=== PATIENT | male | born 1955 | race Caucasian/White ===

== ENCOUNTER 2017-11-02 14:29 | Outpatient (CLI) | payer MEDICAID, SELFPAY ==
[2017-11-02 15:02] LABS: INR 1.8 (1.0-3.5); Prothrombin Time 16.8 sec (9.3-10.8)
== END 2017-11-02 14:49 ==
PROVIDERS: PCP Physician Assistant Medical; Visit Provider Physician Assistant Medical
DX: I34.0 Nonrheumatic mitral (valve) insufficiency (principal); Z98.61 Coronary angioplasty status; Z79.01 Long term (current) use of anticoagulants
CPT/HCPCS: 36415; 85610

== ENCOUNTER 2017-11-11 14:11 | Outpatient (CLI) | payer MEDICAID, SELFPAY ==
[2017-11-11 14:51] LABS: INR 2.2 (1.0-3.5); Prothrombin Time 21.1 sec (9.3-10.8)
== END 2017-11-11 14:31 ==
PROVIDERS: PCP Physician Assistant Medical; Visit Provider Physician Assistant Medical
DX: I48.91 Unspecified atrial fibrillation (principal); Z79.01 Long term (current) use of anticoagulants; Z95.2 Presence of prosthetic heart valve
CPT/HCPCS: 36415; 85610

== ENCOUNTER 2017-11-15 09:46 | Outpatient (CLI) | payer MEDICAID, SELFPAY ==
[2017-11-15 10:18] LABS: INR 2.2 (1.0-3.5); Prothrombin Time 21.2 sec (9.3-10.8)
== END 2017-11-15 10:06 ==
PROVIDERS: PCP Physician Assistant Medical; Visit Provider Physician Assistant Medical
DX: I48.91 Unspecified atrial fibrillation (principal); Z79.01 Long term (current) use of anticoagulants; Z95.2 Presence of prosthetic heart valve
CPT/HCPCS: 36415; 85610

== ENCOUNTER 2017-11-18 09:55 | Outpatient (CLI) | payer MEDICAID, SELFPAY ==
[2017-11-18 10:42] LABS: INR 2.4 (1.0-3.5); Prothrombin Time 22.8 sec (9.3-10.8)
== END 2017-11-18 10:15 ==
PROVIDERS: PCP Physician Assistant Medical; Visit Provider Physician Assistant Medical
DX: I48.91 Unspecified atrial fibrillation (principal); Z79.01 Long term (current) use of anticoagulants; Z95.2 Presence of prosthetic heart valve
CPT/HCPCS: 36415; 85610

== ENCOUNTER 2017-11-18 13:22 | Outpatient (RCR) | payer MEDICAID, SELFPAY | END 2017-11-20 23:59 | disposition home or self-care (01) | LOC: CR 13:22 | PROVIDERS: PCP Physician Assistant Medical; Visit Provider Family Medicine | DX: Z95.1 Presence of aortocoronary bypass graft (principal); Z95.2 Presence of prosthetic heart valve; Z51.89 Encounter for other specified aftercare | CPT/HCPCS: S9472 ==

== ENCOUNTER 2017-11-25 09:48 | Outpatient (CLI) | payer MEDICAID, SELFPAY ==
[2017-11-25 10:43] LABS: INR 2.9 (1.0-3.5); Prothrombin Time 27.6 sec (9.3-10.8)
== END 2017-11-25 10:08 ==
PROVIDERS: PCP Physician Assistant Medical; Visit Provider Physician Assistant Medical
DX: I48.91 Unspecified atrial fibrillation (principal); Z79.01 Long term (current) use of anticoagulants
CPT/HCPCS: 36415; 85610

== ENCOUNTER 2017-11-30 10:52 | Outpatient (CLI) | payer MEDICAID, SELFPAY ==
[2017-11-30 11:42] LABS: INR 2.5 (1.0-3.5); Prothrombin Time 23.4 sec (9.3-10.8)
== END 2017-11-30 11:12 ==
LOC: LBO 12-06 14:17 → NCHCO 12-06 15:43
PROVIDERS: PCP Physician Assistant Medical; Visit Provider Physician Assistant Medical
DX: Z95.2 Presence of prosthetic heart valve (principal); Z79.01 Long term (current) use of anticoagulants
CPT/HCPCS: 36415; 85610

== ENCOUNTER 2017-12-02 12:03 | Outpatient (RCR) | payer MEDICAID, SELFPAY | END 2017-12-21 23:59 | disposition home or self-care (01) | LOC: CR 12:03 | PROVIDERS: PCP Physician Assistant Medical; Visit Provider Family Medicine | DX: Z95.1 Presence of aortocoronary bypass graft (principal); Z95.2 Presence of prosthetic heart valve; Z51.89 Encounter for other specified aftercare | CPT/HCPCS: S9472 ==

== ENCOUNTER 2017-12-10 09:24 | Outpatient (CLI) | payer MEDICAID, SELFPAY ==
[2017-12-10 10:47] LABS: INR 2.5 (1.0-3.5); Prothrombin Time 23.2 sec (9.3-10.8)
== END 2017-12-10 09:44 ==
PROVIDERS: PCP Physician Assistant Medical; Visit Provider Physician Assistant Medical
DX: Z95.2 Presence of prosthetic heart valve (principal); Z79.01 Long term (current) use of anticoagulants; I34.0 Nonrheumatic mitral (valve) insufficiency
CPT/HCPCS: 36415; 85610

== ENCOUNTER 2017-12-18 10:44 | Outpatient (CLI) | payer MEDICAID, SELFPAY ==
[2017-12-18 11:12] LABS: INR 2.5 (1.0-3.5); Prothrombin Time 23.6 sec (9.3-10.8)
== END 2017-12-18 11:04 ==
PROVIDERS: PCP Physician Assistant Medical; Visit Provider Physician Assistant Medical
DX: I34.0 Nonrheumatic mitral (valve) insufficiency (principal); Z95.2 Presence of prosthetic heart valve; Z79.01 Long term (current) use of anticoagulants
CPT/HCPCS: 36415; 85610

== ENCOUNTER 2017-12-31 08:48 | Outpatient (CLI) | payer MEDICAID, SELFPAY ==
[2017-12-31 09:54] LABS: INR 2.2 (1.0-3.5); Prothrombin Time 20.9 sec (9.3-10.8)
== END 2017-12-31 09:08 ==
PROVIDERS: PCP Physician Assistant Medical; Visit Provider Physician Assistant Medical
DX: I34.0 Nonrheumatic mitral (valve) insufficiency (principal); Z95.2 Presence of prosthetic heart valve; Z79.01 Long term (current) use of anticoagulants
CPT/HCPCS: 36415; 85610

== ENCOUNTER 2018-01-16 07:25 | Outpatient (CLI) | payer MEDICAID, SELFPAY ==
[2018-01-16 07:53] LABS: INR 1.9 (1.0-3.5); Prothrombin Time 17.8 sec (9.3-10.8)
== END 2018-01-16 07:45 ==
PROVIDERS: PCP Physician Assistant Medical; Visit Provider Physician Assistant Medical
DX: I34.0 Nonrheumatic mitral (valve) insufficiency (principal); Z95.2 Presence of prosthetic heart valve; Z79.01 Long term (current) use of anticoagulants
CPT/HCPCS: 36415; 85610

== ENCOUNTER 2018-02-02 14:16 | Outpatient (CLI) | payer BC, SELFPAY ==
[2018-02-02 15:58] LABS: Prothrombin Time 17.9 sec (9.3-10.8)
[2018-02-02 16:04] LABS: INR 1.9 (1.0-3.5)
== END 2018-02-02 14:36 ==
PROVIDERS: PCP Physician Assistant Medical; Visit Provider Physician Assistant Medical
DX: I34.0 Nonrheumatic mitral (valve) insufficiency (principal); Z95.2 Presence of prosthetic heart valve; Z79.01 Long term (current) use of anticoagulants
CPT/HCPCS: 36415; 85610

== ENCOUNTER 2018-02-15 07:28 | Outpatient (CLI) | payer BC, SELFPAY ==
[2018-02-15 08:01] LABS: INR 1.9 (1.0-3.5); Prothrombin Time 19.5 sec (9.3-11.0)
== END 2018-02-15 07:48 ==
LOC: LBO 07:29 → NCHCO 07:40
PROVIDERS: PCP Physician Assistant Medical; Visit Provider Physician Assistant Medical
DX: I34.0 Nonrheumatic mitral (valve) insufficiency (principal); Z95.2 Presence of prosthetic heart valve; Z79.01 Long term (current) use of anticoagulants
CPT/HCPCS: 36415; 85610

== ENCOUNTER 2018-02-20 19:39 | Emergency (ER) | payer BC, SELFPAY | END 2018-02-20 19:45 | LOC: ER 19:40 | PROVIDERS: Emergency Provider Specialist/Technologist Athletic Trainer; PCP Physician Assistant Medical | DX: R69 Illness, unspecified (principal) | CPT/HCPCS: 80053; 85027; 83735; 83880; 84439; 84443 ==

== ENCOUNTER 2018-02-22 10:17 | Outpatient (CLI) | payer MEDICAID, SELFPAY ==
[2018-02-22 12:05] LABS: INR 1.9 (1.0-3.5); Prothrombin Time 19.2 sec (9.3-11.0)
== END 2018-02-22 10:37 ==
LOC: LBO 11:50 → NCHCO 12:10
PROVIDERS: PCP Physician Assistant Medical; Visit Provider Physician Assistant Medical
DX: Z95.2 Presence of prosthetic heart valve (principal); Z79.01 Long term (current) use of anticoagulants
CPT/HCPCS: 36415; 85610

== ENCOUNTER 2018-02-28 11:09 | Outpatient (CLI) | payer MEDICAID, SELFPAY ==
[2018-02-28 12:18] LABS: INR 3.1 (0.9-1.1); Prothrombin Time 31.2 sec (9.3-11.0)
== END 2018-02-28 11:29 ==
PROVIDERS: PCP Physician Assistant Medical; Visit Provider Physician Assistant Medical
DX: I34.0 Nonrheumatic mitral (valve) insufficiency (principal); Z98.890 Other specified postprocedural states; Z79.01 Long term (current) use of anticoagulants
CPT/HCPCS: 36415; 85610

== ENCOUNTER 2018-03-08 09:16 | Outpatient (CLI) | payer MEDICAID, SELFPAY ==
[2018-03-08 09:50] LABS: INR 3.4 (0.9-1.1); Prothrombin Time 34.3 sec (9.3-11.0)
== END 2018-03-08 09:36 ==
PROVIDERS: PCP Physician Assistant Medical; Visit Provider Physician Assistant Medical
DX: I34.0 Nonrheumatic mitral (valve) insufficiency (principal); Z79.01 Long term (current) use of anticoagulants; Z98.890 Other specified postprocedural states
CPT/HCPCS: 36415; 85610

== ENCOUNTER 2018-08-01 17:06 | Observation (INO) | payer MEDICAID, SELFPAY ==
[2018-08-01] VITALS (25 sets, daily range): BP systolic 86–124; BP diastolic 47–72; PULSE 50–65; RESP 13–21; TEMP 37; O2SAT 91–97
--- NOTE | 2018-08-01 17:24 | DI.RAD_ITS ---
SYMPTOM/DIAGNOSIS: SOB PA AND LATERAL CHEST: Comparison is made with 07/21/17. Heart size appears stable. There is a mitral valve replacement. The lungs are clear. No effusions or pneumothoraces are identified. The bones are intact. IMPRESSION: No acute pulmonary process.
--- NOTE | 2018-08-01 17:25 | W.ED.GENAD ---
Discharge Plan Disposition Patient Disposition: [facility] INPATIENT Condition: Stable Discharge Details Chief Complaint: SOB Clinical Impression: AF (paroxysmal atrial fibrillation), Shortness of breath Admit Date/Time: 08/01/18 21:19 Admit Provider: Nilson Cuevas Attending Provider: Nilson Cuevas Primary Care Provider: Es [facility] ED Provider: Ryan Cardenas Discharge Data Discharge Date/Time-TO BE ENTERED AT DEPARTURE: 08/01/18 23:07 Medical Decision Making Patient presenting to the emergency department for chief complaint of shortness of breath. Patient states that this started yesterday evening when he also noted palpitations and rapid heart rate. He does state that this is common when he gets his paroxysmal atrial fibrillation episodes and on his heart rate monitor he noticed heart rate in the 150s. Patient went to bed as he states that this typically resolves the symptoms but when he awoke this morning he continued to have symptoms and rapid heart rate. Then around 11 AM he began having a headache and right-sided neck pain with continued shortness of breath. Then around 2 or 3:00 this afternoon the heart rate went back to normal but he continued to be short of breath and have headache and neck pain. When questioning patient he also does state some right-sided sensation of numbness to his arm and left leg. Physical exam shows regular rate and rhythm, no hypoxia or tachycardia, patient is afebrile nondiaphoretic and nontoxic in appearance. Patient is able to speak in full sentences and shows no emergent signs of respiratory distress. Patient has clear lung sounds, regular S1-S2 without murmurs clicks or rubs, no carotid bruits or palpable abnormality noted, neurological exam is unremarkable except for perceived numbness but no focal deficits are noted and patient sensation is still intact. Plan to check labs, EKG, chest x-ray and head CT. Given patient's history of paroxysmal A. fib with complaint of shortness of breath and headache plan to also check d-dimer for consideration of PE. Given patient's headache that he states is not normal for him that CT imaging of the head is warranted for evaluation of stroke but patient is outside the window for any thrombolytics at this point. Review of labs show a nondiagnostic CBC, unremarkable coagulation studies with d-dimer of 476, CMP with mildly elevated BUN and low calcium otherwise nondiagnostic, negative initial troponin and BNP of 1537. Review of chest x-ray and radiologist interpretation shows no acute findings, notation of cardiac valve replacement otherwise no pleural effusion, no pneumothorax, no consolidation. Head CT imaging shows no acute findings. given neck pain and headache plan to do CTA brain and neck. Otherwise patient remained stable with stable vital signs, no hypoxia, no further episodes of paroxysmal A. fib noted on monitor. Of note when patient was at CT scan did state that when this episode started patient had run out to work in garden and when he came back he was extremely diaphoretic, had shortness of breath, and tachycardia at that point. She does state that he has been having a hard time ambulating without getting extremely short of breath. Patient was ambulated through the department and showed no hypoxia with ambulation and no tachycardia but patient stated feeling extreme chest heaviness and shortness of breath with this. Review of 3-hour troponin was negative. CTA brain and neck showed no acute findings. Given patient has significant cardiac history I do feel that patient should be admitted for serial troponins, continued monitoring, and consideration of stress test and echo. I do feel that elevation of BNP may be secondary to patient's atrial fibrillation in the 150s for approximately 12 hours or greater and that that is more likely what is causing patient's symptoms and possible slight demand ischemia. Patient given IV Lasix. Called and spoke with hospitalist Dr. Cuevas who agreed to admit patient and patient was in agreement with this plan to be admitted for further testing and observation. ECG Data Attestation: I personally reviewed and interpreted this ECG (s) as follows: Prior ECG tracings: available for review Interpretation: Sinus bradycardia with rate of 58, no STEMI, and nonspecific T wave changes that do not appear drastically different from previous EKG dated 07/23/2017 [facility] General Mode of arrival: ambulatory. Date/Time Provider Initiated Documentation: 08/01/18 17:08. Limitations to Documentation: no limitations. Information obtained by: patient. History of Present Illness 62 year old M presents to the emergency department with the chief complaint of Shortness of breath, headache, rapid heart rate, described as moderate and similar to prior episodes, with intensity rated at 5. Quality is described as aching, and is localized to the head. Patient neck. Patient started experiencing this day(s) (1) and it has been constant. No exacerbating factors reported . Patient did receive the following treatments prior to arrival, other (Acetaminophen, 4 hours ago) Related Data Home Medications Medication Instructions Recorded Confirmed aspirin [Aspir-81] 81 mg PO DAILY tab-cap 05/24/12 08/01/18 atorvastatin [Lipitor] 40 mg PO HS 05/24/12 08/01/18 albuterol sulfate [ProAir HFA] 2 puff INHALATION Q4H PRN PRN #1 10/11/16 08/01/18 inh tamsulosin 0.4 mg PO DAILY@0830 07/21/17 08/01/18 Eliquis 5 mg PO BID #60 tab 07/23/17 08/01/18 amiodarone 200 mg DAILY 08/01/18 08/01/18 furosemide 20 mg DAILY 08/01/18 08/01/18 metoprolol tartrate 50 mg BID 08/01/18 08/01/18 Previous Rx's Medication Instructions Recorded albuterol sulfate [ProAir HFA] 2 puff INHALATION Q4H PRN PRN #1 10/11/16 inh Eliquis 5 mg PO BID #60 tab 07/23/17 Allergies Allergy/AdvReac Type Severity Reaction Status Date / Time No Known Allergies Allergy Unverified 08/01/18 17:14 General Stated Complaint: RespSymp BILLIE: 3 Review of Systems Constitutional Denies chills, Denies fever(s), Reports headache(s), Denies malaise and Denies weakness ENT Reports headache(s) Cardiovascular Reports as per HPI, Denies chest pain, Denies chest pain with activity, Denies syncope, Reports rapid heart rate, Denies irregular heart rhythm, Denies leg edema, Reports palpitations, Reports dyspnea and Reports dyspnea on exertion Respiratory Denies cough, Denies hemoptysis, Reports dyspnea and Reports dyspnea on exertion Gastrointestinal Denies abdominal pain, Denies nausea and Denies vomiting Musculoskeletal Denies numbness and Reports tingling (Left arm and leg) Neurologic Denies abnormal speech, Denies syncope, Reports headache(s), Denies lack of coordination, Denies numbness, Denies other visual disturbances, Reports tingling (Left arm and leg), Denies paresthesias and Denies weakness Psychiatric Denies anxiety Endocrine Reports palpitations [facility] Medical History ADENOMA COLON POLYP Acute myocardial infarction of inferior wall CAD Diverticulitis (~1989) Essential hypertension Hyperlipidemia Obesity SKIN NEOPLASM Surgical History Angioplasty Appendectomy Arthroplasty of knee COLECTOMY Colonoscopy - MAC (~2007) Colonoscopy - MAC (05/28/16) Colostomy (~1989) Family History Mother Personal history of malignant neoplasm Father Heart disease Sister Personal history of malignant neoplasm Brother Heart disease Other Hearing loss Social History Smoking/Tobacco Use Status: Former Tobacco Use Drug use: Never Substance use type: does not use Do you feel safe at home: Yes Do you feel safe in your relationship?: Yes Exam Const General: cooperative, no acute distress, not diaphoretic and not ill appearing Nutritional Appearance: obese Orientation: alert, awake and oriented x3 Neck Neck: normal visual inspection, full ROM, trachea midline, supple and no anterior neck swelling Carotids: normal carotid upstroke and no bruits Chest Chest: normal inspection of the chest Resp Effort & Inspection: normal respiratory effort and able to speak in complete sentences Auscultation: clear to auscultation bilaterally Cardio Jugular venous pressure: no JVD Palpation: normal PMI Rate: regular rate Rhythm: regular rhythm Heart Sounds: S1 normal, S2 normal, no click, no gallops, no murmurs and no rubs Bruits: no abdominal aortic bruits and no carotid bruits Pulses: radial pulses present bilaterally 2+ GI Inspection: normal to inspection Palpation: soft, no aortic enlargement, no pulsatile masses and nontender Auscultation: normal bowel sounds Skin General skin exam: no rashes or lesions noted Neuro General: alert, awake, oriented x3, tone normal, moves all extremities, normal light touch, pain and propioception, no focal motor deficits and CN's II-XI intact bilaterally Cognition: normal cognition Speech: speech normal Gait: normal gait Motor: muscle tone normal throughout, strength 5/5 throughout, no pronator drift and no movement abnormalities noted Sensory Exam: no sensory deficits noted Coordination: Romberg test normal and Does not sway with eyes open Extrem General: no pedal edema and no calf tenderness Course Vital Signs Temperature 37.0 C 08/01/18 17:09 Pulse 65 08/01/18 17:09 Respiratory Rate 17 08/01/18 17:09 Pulse Oximetry 95 08/01/18 17:09 Temperature 37.0 C 08/01/18 17:09 Pulse 65 08/01/18 17:09 Respiratory Rate 17 08/01/18 17:09 Respiratory Effort 08/01/18 17:22 Pulse Oximetry 95 08/01/18 17:09 Oxygen Delivery Method Room Air 08/01/18 17:09 Oxygen Flow Rate 0 08/01/18 17:09 Pain Level 5 08/01/18 17:22
--- NOTE | 2018-08-01 17:28 | ED.GENADUL_ITS ---
Discharge Plan Disposition Patient Disposition: [facility] INPATIENT Condition: Stable Discharge Details Chief Complaint: SOB Clinical Impression: AF (paroxysmal atrial fibrillation), Shortness of breath Admit Date/Time: 08/01/18 21:19 Admit Provider: Nilson Cuevas Attending Provider: Nilson Cuevas Primary Care Provider: Es [facility] ED Provider: Ryan Cardenas Discharge Data Discharge Date/Time-TO BE ENTERED AT DEPARTURE: 08/01/18 23:07 Medical Decision Making Patient presenting to the emergency department for chief complaint of shortness of breath. Patient states that this started yesterday evening when he also note d palpitations and rapid heart rate. He does state that this is common when he gets his paroxysmal atrial fibrillation episodes and on his heart rate monitor he noticed heart rate in the 150s. Patient went to bed as he states that this typically resolves the symptoms but when he awoke this morning he continued to have symptoms and rapid heart rate. Then around 11 AM he began having a headache and right-sided neck pain with continued shortness of breath. Then around 2 or 3:00 this afternoon the heart rate went back to normal but he continued to be short of breath and have headache and neck pain. When questioning patient he also does state some right-sided sensation of numbness to his arm and left leg. Physical exam shows regular rate and rhythm, no hypoxia or tachycardia, patient is afebrile nondiaphoretic and nontoxic in appearance. Patient is able to speak in full sentences and shows no emergent signs of respiratory distress. Patient has clear lung sounds, regular S1-S2 without murmurs clicks or rubs, no carotid bruits or palpable abnormality noted, neurological exam is unremarkable except for perceived numbness but no focal deficits are noted and patient sensation is still intact. Plan to check labs, EKG, chest x-ray and head CT. Given patient's history of paroxysmal A. fib with complaint of shortness of breath and headache plan to also check d-dimer for consideration of PE. Given patient's headache that he states is not normal for him that CT imaging of the head is warranted for evaluation of stroke but patient is outside the window for any thrombolytics at this point. Review of labs show a nondiagnostic CBC, unremarkable coagulation studies with d-dimer of 476, CMP with mildly elevated BUN and low calcium otherwise nondiagnostic, negative initial troponin and BNP of 1537. Review of chest x-ray and radiologist interpretation shows no acute findings, notation of cardiac valve replacement otherwise no pleural effusion, no pneumothorax, no consolidation. Head CT imaging shows no acute findings. given neck pain and headache plan to do CTA brain and neck. Otherwise patient remained stable with stable vital signs, no hypoxia, no further episodes of paroxysmal A. fib noted on monitor. Of note when patient was at CT scan did state that when this episode started patient had run out to work in garden and when he came back he was extremely diaphoretic, had shortness of breath, and tachycardia at that point. She does state that he has been having a hard time ambulating without getting extremely short of breath. Patient was ambulated through the department and showed no hypoxia with ambulation and no tachycardia but patient stated feeling extreme chest heaviness and shortness of breath with this. Review of 3-hour troponin was negative. CTA brain and neck showed no acute findings. Given patient has significant cardiac history I do feel that patient should be admitted for serial troponins, continued monitoring, and consideration of stress test and echo. I do feel that elevation of BNP may be secondary to patient's atrial fibrillation in the 150s for approximately 12 hours or greater and that that is more likely what is causing patient's symptoms and possible slight demand ischemia. Patient given IV Lasix. Called and spoke with hospitalist Dr. Cuevas who agreed to admit patient and patient was in agreement with this plan to be admitted for further testing and observation. ECG Data Attestation: I personally reviewed and interpreted this ECG (s) as follows: Prior ECG tracings: available for review Interpretation: Sinus bradycardia with rate of 58, no STEMI, and nonspecific T wave changes that do not appear drastically different from previous EKG dated 07/23/2017 [facility] General Mode of arrival: ambulatory . Date/Time Provider Initiated Documentation: 08/01/18 17:08 . Limitations to Documentation: no limitations . Information obtained by: patient . History of Present Illness 62 year old M presents to the emergency department with the chief complaint of Shortness of breath, headache, rapid heart rate, described as moderate and similar to prior episodes, with intensity rated at 5. Quality is described as aching, and is localized to the head. Patient neck. Patient started experiencing this day(s) (1) and it has been constant. No exacerbating factors reported . Patient did receive the following treatments prior to arrival, other (Acetaminophen, 4 hours ago) Related Data Home Medications Medication Instructions Recorded Confirmed aspirin [Aspir-81] 81 mg PO DAILY tab-cap 05/24/12 08/01/18 atorvastatin [Lipitor] 40 mg PO HS 05/24/12 08/01/18 albuterol sulfate [ProAir HFA] 2 puff INHALATION Q4H PRN PRN #1 10/11/16 08/01/18 inh tamsulosin 0.4 mg PO DAILY@0830 07/21/17 08/01/18 Eliquis 5 mg PO BID #60 tab 07/23/17 08/01/18 amiodarone 200 mg DAILY 08/01/18 08/01/18 furosemide 20 mg DAILY 08/01/18 08/01/18 metoprolol tartrate 50 mg BID 08/01/18 08/01/18 Previous Rx's Medication Instructions Recorded albuterol sulfate [ProAir HFA] 2 puff INHALATION Q4H PRN PRN #1 10/11/16 inh Eliquis 5 mg PO BID #60 tab 07/23/17 Allergies Allergy/AdvReac Type Severity Reaction Status Date / Time No Known Allergies Allergy Unverified 08/01/18 17:14 General Stated Complaint: RespSymp BILLIE: 3 Review of Systems Constitutional Denies chills, Denies fever(s), Reports headache(s), Denies malaise and Denies weakness ENT Reports headache(s) Cardiovascular Reports as per HPI, Denies chest pain, Denies chest pain with activity, Denies syncope, Reports rapid heart rate, Denies irregular heart rhythm, Denies leg edema, Reports palpitations, Reports dyspnea and Reports dyspnea on exertion Respiratory Denies cough, Denies hemoptysis, Reports dyspnea and Reports dyspnea on exertion Gastrointestinal Denies abdominal pain, Denies nausea and Denies vomiting Musculoskeletal Denies numbness and Reports tingling (Left arm and leg) Neurologic Denies abnormal speech, Denies syncope, Reports headache(s), Denies lack of coordination, Denies numbness, Denies other visual disturbances, Reports tingling (Left arm and leg), Denies paresthesias and Denies weakness Psychiatric Denies anxiety Endocrine Reports palpitations [facility] Medical History ADENOMA COLON POLYP Acute myocardial infarction of inferior wall CAD Diverticulitis (~1989) Essential hypertension Hyperlipidemia Obesity SKIN NEOPLASM Surgical History Angioplasty Appendectomy Arthroplasty of knee COLECTOMY Colonoscopy - MAC (~2007) Colonoscopy - MAC (05/28/16) Colostomy (~1989) Family History Mother Personal history of malignant neoplasm Father Heart disease Sister Personal history of malignant neoplasm Brother Heart disease Other Hearing loss Social History Smoking/Tobacco Use Status: Former Tobacco Use Drug use: Never Substance use type: does not use Do you feel safe at home: Yes Do you feel safe in your relationship?: Yes Exam Const General: cooperative, no acute distress, not diaphoretic and not ill appearing Nutritional Appearance: obese Orientation: alert, awake and oriented x3 Neck Neck: normal visual inspection, full ROM, trachea midline, supple and no anterior neck swelling Carotids: normal carotid upstroke and no bruits Chest Chest: normal inspection of the chest Resp Effort & Inspection: normal respiratory effort and able to speak in complete sentences Auscultation: clear to auscultation bilaterally Cardio Jugular venous pressure: no JVD Palpation: normal PMI Rate: regular rate Rhythm: regular rhythm Heart Sounds: S1 normal, S2 normal, no click, no gallops, no murmurs and no rubs Bruits: no abdominal aortic bruits and no carotid bruits Pulses: radial pulses present bilaterally 2+ GI Inspection: normal to inspection Palpation: soft, no aortic enlargement, no pulsatile masses and nontender Auscultation: normal bowel sounds Skin General skin exam: no rashes or lesions noted Neuro General: alert, awake, oriented x3, tone normal, moves all extremities, normal light touch, pain and propioception, no focal motor deficits and CN's II-XI intact bilaterally Cognition: normal cognition Speech: speech normal Gait: normal gait Motor: muscle tone normal throughout, strength 5/5 throughout, no pronator drift and no movement abnormalities noted Sensory Exam: no sensory deficits noted Coordination: Romberg test normal and Does not sway with eyes open Extrem General: no pedal edema and no calf tenderness Course Vital Signs Temperature 37.0 C 08/01/18 17:09 Pulse 65 08/01/18 17:09 Respiratory Rate 17 08/01/18 17:09 Pulse Oximetry 95 08/01/18 17:09 Temperature 37.0 C 08/01/18 17:09 Pulse 65 08/01/18 17:09 Respiratory Rate 17 08/01/18 17:09 Respiratory Effort 08/01/18 17:22 Pulse Oximetry 95 08/01/18 17:09 Oxygen Delivery Method Room Air 08/01/18 17:09 Oxygen Flow Rate 0 08/01/18 17:09 Pain Level 5 08/01/18 17:22
--- NOTE | 2018-08-01 17:30 | DI.CT_ITS ---
SYMPTOM/DIAGNOSIS: HEADACHE NONCONTRAST HEAD CT: No priors. A noncontrast cranial CT was performed. The ventricular system is normal in appearance. There is no evidence of an intracranial mass lesion. There is no evidence of a subdural or epidural hematoma. No focal areas of decreased attenuation are seen. CONCLUSION: Normal noncontrast Cranial CT.
--- NOTE | 2018-08-01 17:39 | NUR.NOTE ---
iv placed labs drawn ekg performed Nursing Note:
[2018-08-01 17:47] LABS: Abs Immature Grans 0.05 k/cumm (0.0-0.09); Absolute Basophil Count 0.03 k/cumm (0.0-0.2); Absolute Eosinophil Count 0.14 k/cumm (0.0-0.7); Absolute Lymphocyte Count 1.25 k/cumm (1.2-3.4); Absolute Monocyte Count 1.12 k/cumm (0.11-0.7); Basophils % 0.4; HCT 44.9 % (40.0-50.0); HGB 14.8 g/dL (13.5-17.5); Immature Grans % 0.7; Lymphocytes % 17.6; Mean Corpuscular Hemoglobin 29.9 pg (27.0-33.0); Mean Corpuscular Volume 90.7 fL (80-95); Mean Platelet Volume 11.4 fL (8.0-11.0); Monocytes % 15.8; Neutrophils % 63.5; Platelet Count 156 x1000/uL (130-400); RBC 4.95 m/cumm (4.50-6.00); RBC Distribution Width 14.6 % (11.8-14.1); White Blood Cell Count 7.09 k/cumm (4.4-10.8)
[2018-08-01 18:10] LABS: ALT 48 U/L (12-78); AST 19 U/L (15-37); Albumin 3.1 g/dL (3.4-5.0); Alkaline Phosphatase 92 U/L (46-116); Anion Gap 7.3 mmol/L (3-11); BUN 22 mg/dL (7-18); Bilirubin, Total 0.6 mg/dL (0.2-1.0); CO2 27.7 mmol/L (21.0-32.0); CREATININE 1.06 mg/dL (0.70-1.30); Calcium 8.3 mg/dL (8.5-10.1); Chloride 105 mmol/L (98-107); Glucose 109 mg/dL (70-100); Magnesium 2.1 mg/dL (1.8-2.4); NT-proBNP 1537 pg/mL; Sodium 140 mmol/L (136-145); Total Protein 6.5 g/dL (6.4-8.2); Troponin I 0.02 ng/mL (0.00-0.06)
[2018-08-01 18:14] LABS: PTT Activated 25.4 sec (21.0-31.4); Prothrombin Time 9.8 sec (9.3-11.0)
[2018-08-01 18:26] LABS: D-Dimer 476 ng/mlFEU (<500)
--- NOTE | 2018-08-01 18:56 | DI.VRAD_ITS ---
EXAM: XR Chest, 2 Views EXAM DATE/TIME: 08/01/2018 5:26 PM CLINICAL HISTORY: 62 years old, male; Signs and symptoms; Other: Headache TECHNIQUE: Imaging protocol: XR of the chest, 2 views. COMPARISON: CR CHEST 2 VIEWS PA,LAT 07/21/2017 7:45 AM FINDINGS: Lungs: Unremarkable. No consolidation. Pleural space: Unremarkable. No pleural effusion. No pneumothorax. Heart/Mediastinum: Cardiac valve placement. Bones/joints: Sternotomy. Degenerative changes in the spine. IMPRESSION: No acute finding. Dictated and Authenticated by: Alok Vaughan MD. Ordering:TONI Davis MD
--- NOTE | 2018-08-01 19:16 | DI.VRAD_ITS ---
EXAM: CT Head Without Contrast EXAM DATE/TIME: 08/01/2018 5:31 PM CLINICAL HISTORY: 62 years old, male; Pain; Headache TECHNIQUE: Imaging protocol: Axial computed tomography images of the head without contrast. Coronal and sagittal reformatted images were created and reviewed. COMPARISON: No relevant prior studies available. FINDINGS: Brain: Normal. No hemorrhage. Unremarkable white matter. No mass effect. Ventricles: Normal. No ventriculomegaly. Bones/joints: Unremarkable. No acute fracture. Sinuses: Visualized sinuses are unremarkable. No fluid levels. Mastoid air cells: Visualized mastoid air cells are well aerated. No mastoid effusion. Soft tissues: Unremarkable. IMPRESSION: No acute intracranial findings. Dictated and Authenticated by: Shan Preez MD. Ordering:TONI Davis MD
[2018-08-01] MEDS: Omnipaque 350 MG/ML 100 ML BTL IJ (19:30)
--- NOTE | 2018-08-01 19:50 | DI.CT_ITS ---
SYMPTOMS/DIAGNOSIS: HEADACHE, RT SIDED NECK PAIN CT ANGIOGRAPHY OF THE HEAD AND NECK: CT angiography was performed with multi slice acquisition and multi planar and 3D reconstruction. CT ANGIOGRAPHY OF THE NECK: The common carotid arteries are unremarkable without evidence of dissection, occlusion or significant stenosis. The external carotid arteries are unremarkable. No evidence of occlusion or significant stenosis. The internal carotid arteries are unremarkable without evidence of dissection, occlusion or significant stenosis. The vertebral arteries are unremarkable without evidence of dissection, occlusion or significant stenosis. The thyroid appears grossly unremarkable. No acute abnormality is seen in the lung apices. Degenerative changes are seen in the spine. IMPRESSION: CT angiography of the neck is within normal limits. CT ANGIOGRAPHY OF THE HEAD: The internal carotid arteries are unremarkable without evidence of dissection, occlusion, aneurysm or significant stenosis. The anterior cerebral arteries are unremarkable without evidence of occlusion, aneurysm or significant stenosis. The middle cerebral arteries are unremarkable without evidence of occlusion, aneurysm or significant stenosis. The vertebral arteries and basilar artery are unremarkable without evidence of occlusion, dissection, aneurysm or significant stenosis. The posterior cerebral arteries are unremarkable without evidence of aneurysm, occlusion or significant stenosis. IMPRESSION: Unremarkable CT angiography of the head.
--- NOTE | 2018-08-01 20:13 | DI.VRAD_ITS ---
EXAM: CT Angiography Head With Contrast EXAM DATE/TIME: 08/01/2018 7:19 PM CLINICAL HISTORY: 62 years old, male; Headache and right-sided neck pain TECHNIQUE: Imaging protocol: Axial computed tomographic angiography images of the head with intravenous contrast using CT angiography protocol. Coronal and sagittal reformatted images were created and reviewed. 3D rendering: MIP reconstructed images were created and reviewed. Radiation optimization: All CT scans at this facility use at least one of these dose optimization techniques: automated exposure control; mA and/or kV adjustment per patient size (includes targeted exams where dose is matched to clinical indication); or iterative reconstruction. Contrast material: OMNIPAQUE 350; Contrast volume: 85 ml; Contrast route: IV; COMPARISON: CT HEAD WO 08/01/2018 6:36 PM FINDINGS: Right internal carotid artery: Unremarkable. Intracranial segment is patent with no significant stenosis. No aneurysm. Right anterior cerebral artery: Unremarkable. No occlusion or significant stenosis. No aneurysm. Right middle cerebral artery: Unremarkable. No occlusion or significant stenosis. No aneurysm. Right posterior cerebral artery: Unremarkable. No occlusion or significant stenosis. No aneurysm. Right vertebral artery: Unremarkable. No occlusion or significant stenosis. No aneurysm. Left internal carotid artery: Unremarkable. Intracranial segment is patent with no significant stenosis. No aneurysm. Left anterior cerebral artery: Unremarkable. No occlusion or significant stenosis. No aneurysm. Left middle cerebral artery: Unremarkable. No occlusion or significant stenosis. No aneurysm. Left posterior cerebral artery: Unremarkable. No occlusion or significant stenosis. No aneurysm. Left vertebral artery: Unremarkable. No occlusion or significant stenosis. No aneurysm. Basilar artery: Unremarkable. No occlusion or significant stenosis. No aneurysm. IMPRESSION: CTA head within normal limits. EXAM: CT Angiography Neck With Contrast EXAM DATE/TIME: 08/01/2018 7:19 PM CLINICAL HISTORY: 62 years old, male; Headache and right-sided neck pain TECHNIQUE: Imaging protocol: Axial computed tomographic angiography images of the neck with intravenous contrast using CT angiography protocol. Coronal and sagittal reformatted images were created and reviewed. 3D rendering: MIP reconstructed images were created and reviewed. Radiation optimization: All CT scans at this facility use at least one of these dose optimization techniques: automated exposure control; mA and/or kV adjustment per patient size (includes targeted exams where dose is matched to clinical indication); or iterative reconstruction. Contrast material: OMNIPAQUE 350; Contrast volume: 85 ml; Contrast route: IV; COMPARISON: CT HEAD WO 08/01/2018 6:36 PM FINDINGS: VASCULATURE: Right common carotid artery: Unremarkable. No stenosis. No dissection or occlusion. Right internal carotid artery: Unremarkable. No stenosis in the extracranial segment. No dissection or occlusion. Right external carotid artery: Unremarkable. No occlusion or stenosis. Right vertebral artery: Unremarkable. No stenosis. No dissection or occlusion. Left common carotid artery: Unremarkable. No stenosis. No dissection or occlusion. Left internal carotid artery: Unremarkable. No stenosis in the extracranial segment. No dissection or occlusion. Left external carotid artery: Unremarkable. No stenosis. No dissection or occlusion. Left vertebral artery: Unremarkable. No stenosis. No dissection or occlusion. NECK: Bones/joints: Prior median sternotomy. Soft tissues: Normal. No significant soft tissue swelling. IMPRESSION: CTA neck within normal limits. COMMENT: Reference per NASCET criteria for degree of stenosis: Mild: less than 50% stenosis. Moderate: 50-69% stenosis. Severe: 70-94% stenosis. Near occlusion: 95-99% stenosis. Dictated and Authenticated by: Shan Perez MD. Ordering:TONI Davis MD
[2018-08-01] MEDS: Furosemide 20 MG/2 ML VIAL IVP (20:55)
[2018-08-01 21:04] LABS: Troponin I 0.03 ng/mL (0.00-0.06)
--- NOTE | 2018-08-01 21:07 | W.PM.HP.N ---
Date of service: 08/01/18 Time of Service: 21:08 Assessment and Plan (1) Chest pain: Current visit: Yes Status: Acute Though not documented, sounds clearrly like a prolonged episode of tachycardia, probably Afib. Given consequent symptomatology I am concerned he may have had demand ischemia with flare of CHF. No EKG findings to indicate ongoing ischemia. For now will complete r/o protocol and give Lasix. Will continue usual meds as is otherwise. History of Present Illness Chief Complaint: cp, palpitations Narrative: 62 male with h/o PAF, CAD, CHF -- here with some 18 hours of palpitaitions starting yesterday, resolved midday today but since has had a degree of chest heaviness, GREENBERG and orthopneea. In ER initial findings of note for non-ichemic EKG, initial troponin negative,BNP 1500 and negative CXR. Due to ongoing sxx patient for further evaluation and management. Review of Systems Review of Systems All systems reviewed & are unremarkable except as noted in HPI and below PFSH Medical History ADENOMA COLON POLYP Acute myocardial infarction of inferior wall CAD Diverticulitis (~1989) Essential hypertension Hyperlipidemia Obesity SKIN NEOPLASM Surgical History Angioplasty Appendectomy Arthroplasty of knee COLECTOMY Colonoscopy - MAC (~2007) Colonoscopy - MAC (05/28/16) Colostomy (~1989) Family History Mother Personal history of malignant neoplasm Father Heart disease Sister Personal history of malignant neoplasm Brother Heart disease Other Hearing loss Social History Smoking/Tobacco Use Status: Former Tobacco Use Drug use: Never Substance use type: does not use Do you feel safe at home: Yes Do you feel safe in your relationship?: Yes Meds Home Medications Medication Instructions Recorded Confirmed Type aspirin [Aspir-81] 81 mg PO DAILY tab-cap 05/24/12 08/01/18 History atorvastatin [Lipitor] 40 mg PO HS 05/24/12 08/01/18 History albuterol sulfate [ProAir HFA] 2 puff INHALATION Q4H PRN PRN #1 08/21/17 06/11/19 Rx inh tamsulosin 0.4 mg PO DAILY@0830 07/21/17 08/01/18 History Eliquis 5 mg PO BID #60 tab 07/23/17 08/01/18 Rx amiodarone 200 mg DAILY 08/01/18 08/01/18 History furosemide 20 mg DAILY 08/01/18 08/01/18 History metoprolol tartrate 50 mg BID 08/01/18 08/01/18 History Allergies Allergy/AdvReac Type Severity Reaction Status Date / Time No Known Allergies Allergy Unverified 08/01/18 17:14 Exam Narrative Exam Narrative: 117/61, 52, 19, 37.0, 95% sat. HEENT unremarrkable. neck supple, lungs diminished but clear, heart distant but regual, abdomen soft, NT, extr: no edema, pulse 2+/= Results Labs : 08/01/18 17:30 08/01/18 17:30 Laboratory Results - last 24 hr 08/01/18 08/01/18 08/01/18 17:30 17:30 17:30 WBC 7.09 RBC 4.95 Hgb 14.8 Hct 44.9 MCV 90.7 MCH 29.9 MCHC 33.0 RDW 14.6 H Plt Count 156 MPV 11.4 H Immature Gran % 0.7 Neutrophils % 63.5 Lymphocytes % 17.6 Monocytes % 15.8 Eosinophils % 2.0 Basophils % 0.4 Absolute Neutrophils 4.50 Absolute Lymphocytes 1.25 Absolute Monocytes 1.12 H Absolute Eosinophils 0.14 Absolute Basophils 0.03 PT 9.8 INR 1.0 APTT 25.4 D-Dimer 476 Sodium 140 Potassium 4.0 Chloride 105 Carbon Dioxide 27.7 Anion Gap 7.3 BUN 22 H Creatinine 1.06 Estimated GFR/1.73 m2 >= 60.00 Glucose 109 H Calcium 8.3 L Magnesium 2.1 Total Bilirubin 0.6 AST 19 ALT 48 Alkaline Phosphatase 92 Troponin I 0.02 NT-Pro-B Natriuret Pep 1537 H Total Protein 6.5 Albumin 3.1 L 08/01/18 20:40 WBC RBC Hgb Hct MCV MCH MCHC RDW Plt Count MPV Immature Gran % Neutrophils % Lymphocytes % Monocytes % Eosinophils % Basophils % Absolute Neutrophils Absolute Lymphocytes Absolute Monocytes Absolute Eosinophils Absolute Basophils PT INR APTT D-Dimer Sodium Potassium Chloride Carbon Dioxide Anion Gap BUN Creatinine Estimated GFR/1.73 m2 Glucose Calcium Magnesium Total Bilirubin AST ALT Alkaline Phosphatase Troponin I 0.03 NT-Pro-B Natriuret Pep Total Protein Albumin Last Vital Signs Temp 37.0 C 08/01/18 17:09 Pulse 52 L 08/01/18 20:36 Resp 19 08/01/18 20:36 BP 117/61 08/01/18 20:36 Pulse Ox 95 08/01/18 20:36
[2018-08-02] VITALS (29 sets, daily range): BP systolic 84–114; BP diastolic 27–69; PULSE 52–77; RESP 14–24; TEMP 36.5–36.8; O2SAT 87–97
[2018-08-02] MEDS: Metoprolol 50 MG TAB PO ×2 (00:18→08:23)
[2018-08-02] MEDS: Apixaban 2.5 MG TAB 5 MG PO (00:18)
[2018-08-02] MEDS: Atorvastatin 40 MG TAB PO (00:19)
[2018-08-02 07:20] LABS: Troponin I < 0.02 ng/mL (0.00-0.06)
[2018-08-02 08:00] LABS: TSH (W/Ref FT4) 2.88 uIU/mL (0.358-3.74)
--- NOTE | 2018-08-02 08:21 | INITIAL_ITS ---
- If Service Date Differs Date of service: 08/02/18 Time of Service: 08:18 Care Management Initial Assess REASON FOR HOSPITALIZATION:: chest pain PAST MEDICAL HISTORY/PAST SURGICAL HISTORY:: Medical History : ADENOMA COLON POLYP. Acute myocardial infarction of inferior wall. CAD. Diverticulitis (~1989). Essential hypertension. Hyperlipidemia. Obesity. SKIN NEOPLASM. Surgical History: Angioplasty. Appendectomy. Arthroplasty of knee. COLECTOMY . Colonoscopy - MAC (~2007). Colonoscopy - MAC (05/28/16). Colostomy (~1989) PREVIOUS FUNCTIONAL STATUS/SOCIAL/FAMILY SUPPORTS:: Cristian lives with his and son in a single family home in [place]. 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 Cristian is independent with all activities and continues to drive. He has strong support from his family and friends. CURRENT FUNCTIONAL STATUS:: Cristian was sitting up in bed talking with his , daughter and granddaughter. He was smiling and engaged readily in conversation. Cristian stated he expects he will be discharged later today and will need no additional services. ADVANCE DIRECTIVES:: None on file Has patient been provided with information about the portal?: No Did the patient sign up for the portal?: No CODE STATUS:: Full Code INSURANCE COVERAGE / FINANCIAL ISSUES:: Medicaid [place] CURRENT HOME/COMMUNITY SERVICES/EQUIPMENT:: none currently PRIMARY CARE PHYSICIAN:: Es [place] POTENTIAL DISCHARGE NEEDS:: follow up with Cardiology and PCP and discharge plan of care PATIENT/FAMILY EDUCATION NEEDS:: Discharge plan, limitations, follow up plan of care, Ask Me Three TRANSPORTATION:: via private automobile with family PLAN:: Cristian is undergoing testing to determine the cause of the chest pain that brought him to the hospital.He will likely be discharged this afternoon with no needed services. CM will follow and provide support to the discharge planning process.
[2018-08-02] MEDS: Normal Saline Flush 10 ML SYR IVP (08:22)
[2018-08-02] MEDS: Furosemide 20 MG/2 ML VIAL IVP (08:22)
[2018-08-02] MEDS: Tamsulosin 0.4 MG CAPCR PO (08:23)
[2018-08-02] MEDS: Amiodarone 200 MG TAB 100 MG PO (08:24)
[2018-08-02] MEDS: Aspirin E.C. 81 MG TABEC PO (08:26)
[2018-08-02] MEDS: Apixaban 5 MG TAB PO (08:26)
--- NOTE | 2018-08-02 09:00 | MERGE_ITS ---
*[facility]* *[facility]* [address] [place] [address] Date of study: 08/02/2018 Transthoracic Echocardiography M-mode, complete 2D, complete spectral Doppler, and color Doppler *STUDY CONCLUSIONS* Impressions: The October 2017 was not available for direct comparison, however, there has been no significant change from the report of that study. Summary: 1. Left ventricle: The cavity size was mildly to moderately dilated. There was mild hypertrophy of the septum. Systolic function was mildly reduced. The estimated ejection fraction was 45%. Akinesis of the basal-midinferior myocardium. 2. Mitral valve: Prior procedures included surgical repair. An annular ring prosthesis was present. Transvalvular velocity was within the normal range. There was no evidence for stenosis. There was trivial regurgitation. Mean gradient (D): 4mm Hg at 55 bpm. 3. Left atrium: The atrium was moderately dilated. 4. Right ventricle: The cavity size was normal. Wall thickness was normal. Systolic function was normal. 5. Right atrium: The atrium was moderately dilated. *PATIENT PRESENTATION* Height: 175.3cm ((69in) ) S/D Pressure: 107 / 69 Weight: 136.1kg ((299.4lb) ) BSA: 2.64m^2 Test start time: 09:10 AM. Test stop time: 10:05 AM. ORDERING Demetrius Galarza MD REFERRING Demetrius Galarza MD PERFORMING Unknown PERFORMING [facility] CONSULTING Es [place] FRONT OFFICE SPECIALIST RT Pravin (R)(CT), [facility] *PROCEDURE DATA* Procedure information: The patient was identified by two identifiers. This study was interpreted by [facility]. Pertinent images and digital data are archived for permanent storage and are available for subsequent review. Comparison was made to the study of 07/21/2017. Study status: STAT. Transthoracic echocardiography. M-mode, complete 2D, complete spectral Doppler, and color Doppler. A Transthoracic Echocardiogram was performed. Scanning was performed from the parasternal, apical, subcostal, and suprasternal notch acoustic windows. Images were obtained using an [id number] cardiac ultrasound machine. Image quality was adequate. Study completion: The patient tolerated the procedure well. There were no complications. History: PMH: Prolonged dyspnea. GREENBERG after suspected PAF episode. Hx MV repair , last echo [facility] 10/2017. *CARDIAC ANATOMY* Left ventricle: The cavity size was mildly to moderately dilated. There was mild hypertrophy of the septum. Systolic function was mildly reduced. The estimated ejection fraction was 45%. Regional wall motion abnormalities: Akinesis of the basal-midinferior myocardium. Diastolic parameters were not diagnostic. Aortic valve: Trileaflet; normal thickness leaflets. Mobility was not restricted. Doppler: Transvalvular velocity was within the normal range. There was no stenosis. There was no significant regurgitation. VTI ratio of LVOT to aortic valve: 0.77. Valve area (VTI): 2.6cm^2. Indexed valve area (VTI): 1cm^2/m^2. Peak velocity ratio of LVOT to aortic valve: 0.63. Valve area (Vmax): 2.1cm^2. Indexed valve area (Vmax): 0.8cm^2/m^2. Mean velocity ratio of LVOT to aortic valve: 0.76. Valve area (Vmean): 2.6cm^2. Indexed valve area (Vmean): 1cm^2/m^2. Mean gradient (S): 2.5mm Hg. Peak gradient (S): 5mm Hg. Aorta: Aortic root: The aortic root was normal in size. Ascending aorta: The ascending aorta was normal in size. Mitral valve: Prior procedures included surgical repair. An annular ring prosthesis was present. Mobility was not restricted. Doppler: Transvalvular velocity was within the normal range. There was no evidence for stenosis. There was trivial regurgitation. Valve area by pressure half-time: 1.6cm^2. Indexed valve area by pressure half-time: 0.6cm^2/m^2. Mean gradient (D): 4mm Hg at 55 bpm. Peak gradient (D): 11.9mm Hg. Left atrium: The atrium was moderately dilated. Right ventricle: The cavity size was normal. Wall thickness was normal. Systolic function was normal. Pulmonic valve: Structurally normal valve. Doppler: Transvalvular velocity was within the normal range. There was no evidence for stenosis. There was no significant regurgitation. Tricuspid valve: Structurally normal valve. Doppler: Transvalvular velocity was within the normal range. There was no evidence for stenosis. There was trivial regurgitation. Pulmonary artery: Pulmonary systolic pressure was within the normal range, in the range of 25mm Hg to 30mm Hg. Right atrium: The atrium was moderately dilated. Pericardium: There was no pericardial effusion. Systemic veins: Inferior vena cava: Well visualized. The vessel was patent and normal in size. The respirophasic diameter changes were in the normal range (greater than or equal to 50%). Baseline ECG: Sinus bradycardia. Measurements Left ventricle Value 07/21/2017 Reference LV ID, ED, PLAX (H) 6.5 cm 5.9 3.5 - 6.0 LV ID, ES, PLAX (H) 5.1 cm 4.7 2.1 - 4.0 LV PW thickness, ED, PLAX 1.0 cm 1.3 LV end-diastolic volume, 157 ml 115 1-p A2C LV ejection fraction, 1-p 42 % 47 A2C LV end-diastolic volume, 160 ml 119 1-p A4C LV ejection fraction, 1-p 47 % 53 A4C LV e', lateral 0.087 m/sec 0.156 LV E/e', lateral 20 6 LV e', medial 0.083 m/sec 0.11 LV E/e', medial 21 8 LV e', average 0.085 m/sec 0.133 LV E/e', average 20 7 Ventricular septum Value 07/21/2017 Reference IVS thickness, ED, PLAX 1.4 cm 1.6 LVOT Value 07/21/2017 Reference LVOT ID, A-P 2.1 cm 2.1 LVOT area 3.4 cm^2 3.5 LVOT peak velocity, S 0.7 m/sec 0.9 LVOT mean velocity, S 0.56 m/sec 0.66 LVOT VTI, S 17.0 cm 18.1 LVOT peak gradient, S 2 mm Hg 3.2 LVOT mean gradient, S 1.4 mm Hg 2 Stroke volume (SV), LVOT 57 ml 64 DP Stroke index (SV/bsa), 22 ml/m^2 26 LVOT DP Aortic valve Value 07/21/2017 Reference Aortic valve peak 1.1 m/sec 0.9 velocity, S Aortic valve mean 0.74 m/sec 0.71 velocity, S Aortic valve VTI, S 22.0 cm 19.6 Aortic mean gradient, S 2.5 mm Hg 2.2 Aortic peak gradient, S 5 mm Hg 3.5 VTI ratio, LVOT/AV 0.77 0.92 Aortic valve area, VTI 2.6 cm^2 3.3 Velocity ratio, peak, 0.63 0.96 LVOT/AV Aortic valve area, peak 2.1 cm^2 3.4 velocity Velocity ratio, mean, 0.76 0.92 LVOT/AV Aortic valve area, mean 2.6 cm^2 3.3 velocity Aortic valve area/bsa, 1 cm^2/m^2 1.3 mean velocity Aorta Value 07/21/2017 Reference Aortic root ID, ED 3.0 cm 2.8 Ascending aorta ID, A-P, S 2.9 cm 3.5 Left atrium Value 07/21/2017 Reference LA ID, A-P, ES 5.6 cm 4.8 LA ID/bsa, A-P 2.1 cm/m^2 1.9 <=2.2 LA area, ES, A4C (H) 28.2 cm^2 21.8 8.8 - 23.4 LA area, ES, A2C 30 cm^2 26 LA volume/bsa, ES, 1-p A4C 45 ml/m^2 LA volume, ES, 2-p 103 ml 81 LA volume/bsa, ES, 2-p 39 ml/m^2 33 LA/aortic root ratio 1.89 1.67 Mitral valve Value 07/21/2017 Reference Mitral E-wave peak 1.73 m/sec 0.91 velocity Mitral A-wave peak 0.88 m/sec velocity Mitral deceleration time (H) 465 ms 145 150 - 230 Mitral pressure half-time 135 ms 42 Mitral mean gradient, D 4 mm Hg Mitral peak gradient, D 11.9 mm Hg 3.3 Mitral E/A ratio, peak 1.96 Mitral valve area, PHT, DP 1.6 cm^2 5.2 Pulmonary veins Value 07/21/2017 Reference Pulmonary vein peak 0.55 m/sec velocity, S Pulmonary vein peak 0.74 m/sec velocity, D Pulmonary vein velocity 0.74 ratio, peak, S/D Tricuspid valve Value 07/21/2017 Reference Tricuspid regurg peak 2.5 m/sec 2 velocity Tricuspid peak RV-RA 25.4 mm Hg 16 gradient Right atrium Value 07/21/2017 Reference RA area, ES, A4C (H) 27.1 cm^2 17.5 8.3 - 19.5 Legend: (L) and (H) gemma values outside specified reference range. I have personally reviewed the images and have reviewed and edited the reported findings. Electronically signed by Omar Chamberlain 08/02/2018 11:08
--- NOTE | 2018-08-02 13:20 | W.PM.DS.N ---
Date of service: 08/02/18 Time of Service: 13:20 DS: Diagnosis Discharge Diagnosis (1) Congestive heart failure with left ventricular systolic dysfunction: Status: Acute Asessment and Plan: Heart failure based on clinical exam and biomarkers probably related to rapid atrial fibrillation. Responded well to parenteral doses of furosemide with excellent diuretic response, subjective and objective improvement with diuresis. Echocardiogram compared to his echocardiogram from October 2017 with no gross changes, mild impairment of LV function. ECG and biomarkers for acute ischemia negative. No changes made to his outpatient dose of metoprolol, amiodarone or furosemide. (2) Atrial fibrillation with rapid ventricular response: Status: Acute Asessment and Plan: No episodes of A. fib while monitored in the hospital. Telemetry showed sinus rhythm and sinus bradycardia (heart rate no lower than mid 50s) only. He continued on his anticoagulation. Per discussion with his menhaden fishing crew member, Dr. Brewster, no change made to his amiodarone dose. (3) Hypertension: Status: Chronic Asessment and Plan: Blood pressures in the 1 teens to 120s on his outpatient dose of metoprolol and 2 IV doses of furosemide. (4) CAD (coronary artery disease): Status: Chronic Asessment and Plan: No evidence of acute ischemia by ECG, biomarkers or symptoms. He continued on aspirin, statin and beta-sridhar at outpatient dosages. No new regional wall motion abnormality seen on echocardiogram. Discharge Plan Disposition Patient Disposition: HOME Condition: Good Discharge Details Chief Complaint: SOB Reason For Visit: CP,AFIB Admit Date/Time: 08/01/18 21:19 Admit Provider: Nilson Cuevas Attending Provider: Nilson Cuevas Primary Care Provider: Es Clinton ED Provider: Ryan Cardenas [facility] Hospital Course: 62-year-old man with a history of paroxysmal A. fib, coronary artery disease status post two-vessel bypass grafting slightly less than a year ago, mitral valve repair at the same time, known mild impairment of LV function based on echocardiogram done after his valve repair and surgery, presented to the emergency room with self detected recurrence of A. fib for about 18 hours before arrival. Aware of palpitations and has a home monitor that showed heart rate in the 1 20-1 50 range. He was hopeful that it would resolve on its own. However, began getting a sense of exertional dyspnea and vague chest discomfort which prompted ER visit. He was in sinus rhythm upon presentation, no acute distress. ECG did not show any acute ischemic changes. His initial troponin was normal. His BNP was elevated at a possibly 1500. He was admitted for ruling out acute coronary syndrome, recurrence of A. fib with rapid ventricular response and treatment of his presumed heart failure. In February of this year his amiodarone dose was decreased from 200 to 100 mg because of bradycardia. This is his first recurrence of atrial fibrillation since that dose reduction. He was monitored on telemetry with sinus bradycardia only. He had sequential troponins of 0.2, 0.3 and below the level of detection, all negative for acute coronary syndrome. He had an echocardiogram that showed mildly to moderately dilated LV, mild septal hypertrophy with slight reduction of systolic function estimated at 45% ejection fraction and akinesis of the basal and mid inferior myocardium. I direct comparison with [place] [facility] [place] could not be done but by report, no gross changes. Subjectively he felt substantially better after he received 20 mg of IV Lasix upon presentation to the ER and again repeated the morning of discharge. He had a nearly 4 L diuresis overall. Phone call conversation with his menhaden fishing crew member, Dr. Brewster, to review case and decision made not to make any changes at this time in his amiodarone dose. He is being discharged on all his prehospital medications at the same dose. Home Meds and New Rx's Prescriptions: Continued atorvastatin [Lipitor] 40 MG tablet 40 mg PO HS RF: 0 aspirin [Aspir-81] 81 MG tablet,delayed release (DR/EC) 81 mg PO DAILY RF: 0 albuterol sulfate [ProAir HFA] 200 PUFF HFA aerosol inhaler 2 puff Inhalation Q4H PRN PRNQty: 1 RF: 0 tamsulosin 0.4 MG capsule 0.4 mg PO DAILY@0830 RF: 0 Eliquis 5 MG tablet 5 mg PO BID Qty: 60 RF: 0 metoprolol tartrate 50 mg Tablet 50 mg BID RF: 0 furosemide 20 mg Tablet 20 mg DAILY RF: 0 amiodarone 200 mg Tablet 100 mg DAILY RF: 0 Discharge Instructions Instructions: Heart Failure (DC), Atrial Fibrillation (DC) Additional Instructions: Return to the hospital if you have recurrent atrial fibrillation with associated chest pain, shortness of breath, dizziness or lightheadedness or feeling faint Referrals: Courtney Brewster [ NON-[facility] STAFF PHYSICIAN] - 08/10/18 2:25 pm Activity:: Activity as Tolerated Equipment/Supplies:: No Equipment Needed Diet:: Normal Diet Discharge Orders Discharge Orders: Discharge Order (Routine); Ordered 08/02/18 Ordered By: Demetrius Galarza Exam Narrative Exam Narrative: Awake alert no distress. Can see neck veins because of neck size. Lungs with slightly diminished breath sounds at the bases, no crackles or wheeze heard. Heart rhythm regular no murmur S3 or S4. No pitting edema at the ankles with good distal pulses. Symmetric movement of all extremities. Transfers independently. DS: Data Vitals/I&O Vitals and I&O: Vital Signs Temperature 36.8 C 08/02/18 08:41 Temperature Source Temporal Artery Scan 08/02/18 08:41 Pulse 59 L 08/02/18 12:00 Pulse 60 08/02/18 12:00 Respiratory Rate 18 08/02/18 12:00 Respiratory Effort Non-Labored 08/02/18 08:41 Respiratory Depth Normal 08/02/18 08:41 Respiratory Pattern Normal 08/02/18 08:41 Blood Pressure 110/58 L 08/02/18 12:00 Blood Pressure Mean 69 08/02/18 12:00 Blood Pressure Position Supine 08/02/18 08:41 Pulse Oximetry 96 08/02/18 08:21 Oxygen Delivery Method Room Air 08/02/18 08:41 Oxygen Flow Rate 0 08/02/18 08:41 Pain Level 0 08/02/18 08:41 Intake & Output 08/01/18 08/02/18 08/02/18 23:59 11:59 23:59 Output Total 1475 / 1475 1400 / 1400 Balance -1475 / -1475 -1400 / -1400 Weight 133.5 kg 135.2 kg Output: Urine 1475 / 1475 1400 / 1400 Other: Urine Color Yellow Urine Appearance Clear Urine Odor Normal Comment Stands at bedside to void in urinal. Stool Occult Blood Negative Stool Size Moderate Stool Characteristics Soft Voiding Methods Urinal Labs on day of discharge: Labs from last 24 hours 08/02/18 08/01/18 08/01/18 06:22 20:40 17:30 WBC RBC Hgb Hct MCV MCH MCHC RDW Plt Count MPV Immature Gran % Neutrophils % Lymphocytes % Monocytes % Eosinophils % Basophils % Absolute Neutrophils Absolute Lymphocytes Absolute Monocytes Absolute Eosinophils Absolute Basophils PT 9.8 INR 1.0 APTT 25.4 D-Dimer 476 Sodium Potassium Chloride Carbon Dioxide Anion Gap BUN Creatinine Estimated GFR/1.73 m2 Glucose Calcium Magnesium Total Bilirubin AST ALT Alkaline Phosphatase Troponin I < 0.02 0.03 NT-Pro-B Natriuret Pep Total Protein Albumin TSH 2.88 08/01/18 08/01/18 17:30 17:30 WBC 7.09 RBC 4.95 Hgb 14.8 Hct 44.9 MCV 90.7 MCH 29.9 MCHC 33.0 RDW 14.6 H Plt Count 156 MPV 11.4 H Immature Gran % 0.7 Neutrophils % 63.5 Lymphocytes % 17.6 Monocytes % 15.8 Eosinophils % 2.0 Basophils % 0.4 Absolute Neutrophils 4.50 Absolute Lymphocytes 1.25 Absolute Monocytes 1.12 H Absolute Eosinophils 0.14 Absolute Basophils 0.03 PT INR APTT D-Dimer Sodium 140 Potassium 4.0 Chloride 105 Carbon Dioxide 27.7 Anion Gap 7.3 BUN 22 H Creatinine 1.06 Estimated GFR/1.73 m2 >= 60.00 Glucose 109 H Calcium 8.3 L Magnesium 2.1 Total Bilirubin 0.6 AST 19 ALT 48 Alkaline Phosphatase 92 Troponin I 0.02 NT-Pro-B Natriuret Pep 1537 H Total Protein 6.5 Albumin 3.1 L TSH Patient Name: JUSTIN GREY #: [id number]: ICU Ordering Provider: Demetrius Galarza M.D. : ADM SANJANA Primary Care Provider: Es Clintonate of Exam: 08/02/18Sex: M : 8Age: 62 Exam(s) a US:US echocardiogram *[facility]* *[facility]* [address] [place] [address] Date of study: 08/02/2018 Transthoracic Echocardiography M-mode, complete 2D, complete spectral Doppler, and color Doppler *STUDY CONCLUSIONS* Impressions: The October 2017 was not available for direct comparison, however, there has been no significant change from the report of that study. Summary: 1. Left ventricle: The cavity size was mildly to moderately dilated. There was mild hypertrophy of the septum. Systolic function was mildly reduced. The estimated ejection fraction was 45%. Akinesis of the basal-midinferior myocardium. 2. Mitral valve: Prior procedures included surgical repair. An annular ring prosthesis was present. Transvalvular velocity was within the normal range. There was no evidence for stenosis. There was trivial regurgitation. Mean gradient (D): 4mm Hg at 55 bpm. 3. Left atrium: The atrium was moderately dilated. 4. Right ventricle: The cavity size was normal. Wall thickness was normal. Systolic function was normal. 5. Right atrium: The atrium was moderately dilated. [facility] Medical History ADENOMA COLON POLYP Acute myocardial infarction of inferior wall CAD Diverticulitis (~1989) Essential hypertension Hyperlipidemia Obesity SKIN NEOPLASM Surgical History Angioplasty Appendectomy Arthroplasty of knee COLECTOMY Colonoscopy - MAC (~2007) Colonoscopy - MAC (05/28/16) Colostomy (~1989) Family History Mother Personal history of malignant neoplasm Father Heart disease Sister Personal history of malignant neoplasm Brother Heart disease Other Hearing loss Social History Smoking/Tobacco Use Status: Former Tobacco Use Drug use: Never Substance use type: does not use Do you feel safe at home: Yes Do you feel safe in your relationship?: Yes
--- NOTE | 2018-08-02 13:35 | DSE_ITS ---
Date of service: 08/02/18 Time of Service: 13:20 DS: Diagnosis Discharge Diagnosis (1) Congestive heart failure with left ventricular systolic dysfunction: Status: Acute Asessment and Plan: Heart failure based on clinical exam and biomarkers probably related to rapid atrial fibrillation. Responded well to parenteral doses of furosemide with excellent diuretic response, subjective and objective improvement with diuresis. Echocardiogram compared to his echocardiogram from October 2017 with no gross changes, mild impairment of LV function. ECG and biomarkers for acute ischemia negative. No changes made to his outpatient dose of metoprolol, amiodarone or furosemide. (2) Atrial fibrillation with rapid ventricular response: Status: Acute Asessment and Plan: No episodes of A. fib while monitored in the hospital. Telemetry showed sinus rhythm and sinus bradycardia (heart rate no lower than mid 50s) only. He continued on his anticoagulation. Per discussion with his clinical informatics director, Dr. Brewster, no change made to his amiodarone dose. (3) Hypertension: Status: Chronic Asessment and Plan: Blood pressures in the 1 teens to 120s on his outpatient dose of metoprolol and 2 IV doses of furosemide. (4) CAD (coronary artery disease): Status: Chronic Asessment and Plan: No evidence of acute ischemia by ECG, biomarkers or symptoms. He continued on aspirin, statin and beta-sridhar at outpatient dosages. No new regional wall motion abnormality seen on echocardiogram. Discharge Plan Disposition Patient Disposition: HOME Condition: Good Discharge Details Chief Complaint: SOB Reason For Visit: CP,AFIB Admit Date/Time: 08/01/18 21:19 Admit Provider: Nilson Cuevas Attending Provider: Nilson Cuevas Primary Care Provider: Es Clinton ED Provider: Ryan Cardenas [facility] Course Hospital Course: 62-year-old man with a history of paroxysmal A. fib, coronary artery disease status post two-vessel bypass grafting slightly less than a year ago, mitral valve repair at the same time, known mild impairment of LV function based on echocardiogram done after his valve repair and surgery, presented to the emergency room with self detected recurrence of A. fib for about 18 hours before arrival. Aware of palpitations and has a home monitor that showed heart rate in the 1 20-1 50 range. He was hopeful that it would resolve on its own. However, began getting a sense of exertional dyspnea and vague chest discomfort which prompted ER visit. He was in sinus rhythm upon presentation, no acute distress. ECG did not show any acute ischemic changes. His initial troponin was normal. His BNP was elevated at a possibly 1500. He was admitted for ruling out acute coronary syndrome, recurrence of A. fib with rapid ventricular response and treatment of his presumed heart failure. In February of this year his amiodarone dose was decreased from 200 to 100 mg because of bradycardia. This is his first recurrence of atrial fibrillation since that dose reduction. He was monitored on telemetry with sinus bradycardia only. He had sequential troponins of 0.2, 0.3 and below the level of detection, all negative for acute coronary syndrome. He had an echocardiogram that showed mildly to moderately dilated LV, mild septal hypertrophy with slight reduction of systolic function estimated at 45% ejection fraction and akinesis of the basal and mid inferior myocardium. I direct comparison with his ECG done at [facility] [place] in 2018 could not be done but by report, no gross changes. Subjectively he felt substantially better after he received 20 mg of IV Lasix upon presentation to the ER and again repeated the morning of discharge. He had a nearly 4 L diuresis overall. Phone call conversation with his clinical informatics director, Dr. Brewster, to review case and decision made not to make any changes at this time in his amiodarone dose. He is being discharged on all his prehospital medications at the same dose. Home Meds and New Rx's Prescriptions: Continued atorvastatin [Lipitor] 40 MG tablet 40 mg PO HS RF: 0 aspirin [Aspir-81] 81 MG tablet,delayed release (DR/EC) 81 mg PO DAILY RF: 0 albuterol sulfate [ProAir HFA] 200 PUFF HFA aerosol inhaler 2 puff Inhalation Q4H PRN PRNQty: 1 RF: 0 tamsulosin 0.4 MG capsule 0.4 mg PO DAILY@0830 RF: 0 Eliquis 5 MG tablet 5 mg PO BID Qty: 60 RF: 0 metoprolol tartrate 50 mg Tablet 50 mg BID RF: 0 furosemide 20 mg Tablet 20 mg DAILY RF: 0 amiodarone 200 mg Tablet 100 mg DAILY RF: 0 Discharge Instructions Instructions: Heart Failure (DC), Atrial Fibrillation (DC) Additional Instructions: Return to the hospital if you have recurrent atrial fibrillation with associated chest pain, shortness of breath, dizziness or lightheadedness or feeling faint Referrals: Courtney Brewster [ NON-[facility] STAFF PHYSICIAN] - 08/10/18 2:25 pm Activity:: Activity as Tolerated Equipment/Supplies:: No Equipment Needed Diet:: Normal Diet Discharge Orders Discharge Orders: Discharge Order (Routine); Ordered 08/02/18 Ordered By: Demetrius Galarza Exam Narrative Exam Narrative: Awake alert no distress. Can see neck veins because of neck size. Lungs with slightly diminished breath sounds at the bases, no crackles or wheeze heard. Heart rhythm regular no murmur S3 or S4. No pitting edema at the ankles with good distal pulses. Symmetric movement of all extremities. Transfers independently. DS: Data Vitals/I&O Vitals and I&O: Vital Signs Temperature 36.8 C 08/02/18 08:41 Temperature Source Temporal Artery Scan 08/02/18 08:41 Pulse 59 L 08/02/18 12:00 Pulse 60 08/02/18 12:00 Respiratory Rate 18 08/02/18 12:00 Respiratory Effort Non-Labored 08/02/18 08:41 Respiratory Depth Normal 08/02/18 08:41 Respiratory Pattern Normal 08/02/18 08:41 Blood Pressure 110/58 L 08/02/18 12:00 Blood Pressure Mean 69 08/02/18 12:00 Blood Pressure Position Supine 08/02/18 08:41 Pulse Oximetry 96 08/02/18 08:21 Oxygen Delivery Method Room Air 08/02/18 08:41 Oxygen Flow Rate 0 08/02/18 08:41 Pain Level 0 08/02/18 08:41 Intake & Output 08/01/18 08/02/18 08/02/18 23:59 11:59 23:59 Output Total 1475 / 1475 1400 / 1400 Balance -1475 / -1475 -1400 / -1400 Weight 133.5 kg 135.2 kg Output: Urine 1475 / 1475 1400 / 1400 Other: Urine Color Yellow Urine Appearance Clear Urine Odor Normal Comment Stands at bedside to void in urinal. Stool Occult Blood Negative Stool Size Moderate Stool Characteristics Soft Voiding Methods Urinal Labs on day of discharge: Labs from last 24 hours 08/02/18 08/01/18 08/01/18 06:22 20:40 17:30 WBC RBC Hgb Hct MCV MCH MCHC RDW Plt Count MPV Immature Gran % Neutrophils % Lymphocytes % Monocytes % Eosinophils % Basophils % Absolute Neutrophils Absolute Lymphocytes Absolute Monocytes Absolute Eosinophils Absolute Basophils PT 9.8 INR 1.0 APTT 25.4 D-Dimer 476 Sodium Potassium Chloride Carbon Dioxide Anion Gap BUN Creatinine Estimated GFR/1.73 m2 Glucose Calcium Magnesium Total Bilirubin AST ALT Alkaline Phosphatase Troponin I < 0.02 0.03 NT-Pro-B Natriuret Pep Total Protein Albumin TSH 2.88 08/01/18 08/01/18 17:30 17:30 WBC 7.09 RBC 4.95 Hgb 14.8 Hct 44.9 MCV 90.7 MCH 29.9 MCHC 33.0 RDW 14.6 H Plt Count 156 MPV 11.4 H Immature Gran % 0.7 Neutrophils % 63.5 Lymphocytes % 17.6 Monocytes % 15.8 Eosinophils % 2.0 Basophils % 0.4 Absolute Neutrophils 4.50 Absolute Lymphocytes 1.25 Absolute Monocytes 1.12 H Absolute Eosinophils 0.14 Absolute Basophils 0.03 PT INR APTT D-Dimer Sodium 140 Potassium 4.0 Chloride 105 Carbon Dioxide 27.7 Anion Gap 7.3 BUN 22 H Creatinine 1.06 Estimated GFR/1.73 m2 >= 60.00 Glucose 109 H Calcium 8.3 L Magnesium 2.1 Total Bilirubin 0.6 AST 19 ALT 48 Alkaline Phosphatase 92 Troponin I 0.02 NT-Pro-B Natriuret Pep 1537 H Total Protein 6.5 Albumin 3.1 L TSH Patient Name: JUSTIN GREY #: [id number]: ICU Ordering Provider: Demetrius Galarza M.D. : ADM SANJANA Primary Care Provider: Es Clintonate of Exam: 08/02/18Sex: M : 8Age: 62 Exam(s) a US:US echocardiogram *[facility]* *[facility]* [address] [place] [address] Date of study: 08/02/2018 Transthoracic Echocardiography M-mode, complete 2D, complete spectral Doppler, and color Doppler *STUDY CONCLUSIONS* Impressions: The October 2017 was not available for direct comparison, however, there has been no significant change from the report of that study. Summary: 1. Left ventricle: The cavity size was mildly to moderately dilated. There was mild hypertrophy of the septum. Systolic function was mildly reduced. The estimated ejection fraction was 45%. Akinesis of the basal-midinferior myocardium. 2. Mitral valve: Prior procedures included surgical repair. An annular ring prosthesis was present. Transvalvular velocity was within the normal range. There was no evidence for stenosis. There was trivial regurgitation. Mean gradient (D): 4mm Hg at 55 bpm. 3. Left atrium: The atrium was moderately dilated. 4. Right ventricle: The cavity size was normal. Wall thickness was normal. Systolic function was normal. 5. Right atrium: The atrium was moderately dilated. [facility] Medical History ADENOMA COLON POLYP Acute myocardial infarction of inferior wall CAD Diverticulitis (~1989) Essential hypertension Hyperlipidemia Obesity SKIN NEOPLASM Surgical History Angioplasty Appendectomy Arthroplasty of knee COLECTOMY Colonoscopy - MAC (~2007) Colonoscopy - MAC (05/28/16) Colostomy (~1989) Family History Mother Personal history of malignant neoplasm Father Heart disease Sister Personal history of malignant neoplasm Brother Heart disease Other Hearing loss Social History Smoking/Tobacco Use Status: Former Tobacco Use Drug use: Never Substance use type: does not use Do you feel safe at home: Yes Do you feel safe in your relationship?: Yes
--- NOTE | 2018-08-02 16:49 | PDOC.CMDIS ---
- If Service Date Differs Date of service: 08/02/18 Time of Service: 16:49 LACE Index Scoring Tool - Questions: Length of Stay (in days): 1 Acuity (Admit via E.D.?): Yes Comorbidities: Previous M.I., Any Tumor E.D. Visits: 2 - Answers: Total Score: 9 Risk of Readmission: Low Risk Care Management Discharge Reason for Hospitalization: chest pain Discharge Plan: Cristian will be discharged this afternoon with no needed services. He will be transported by his via private vehicle. No additional services are needed. he will follow up with his digital sales director, PCP and discharge plan of care. Patient/Family Education Needs: Discharge plan, limitations, follow up plan of care, Ask Me Three
--- NOTE | 2018-08-02 16:53 | CMDISCH_ITS ---
- If Service Date Differs Date of service: 08/02/18 Time of Service: 16:49 LACE Index Scoring Tool - Questions: Length of Stay (in days): 1 Acuity (Admit via E.D.?): Yes Comorbidities: Previous M.I., Any Tumor E.D. Visits: 2 - Answers: Total Score: 9 Risk of Readmission: Low Risk Care Management Discharge Reason for Hospitalization: chest pain Discharge Plan: Cristian will be discharged this afternoon with no needed services. He will be transported by his via private vehicle. No additional services are needed. he will follow up with his operations manager, PCP and discharge plan of care. Patient/Family Education Needs: Discharge plan, limitations, follow up plan of care, Ask Me Three
== END 2018-08-02 15:00 | disposition home or self-care (01) ==
LOC: ER 18:28 → ICU 23:08
PROVIDERS: Admitting Provider General Practice; Emergency Provider Nurse Practitioner Family; PCP Physician Assistant Medical; Visit Provider Internal Medicine
DX: I48.0 Paroxysmal atrial fibrillation (principal); I47.2 Ventricular tachycardia; I50.21 Acute systolic (congestive) heart failure; R00.1 Bradycardia, unspecified; I10 Essential (primary) hypertension; I25.10 Atherosclerotic heart disease of native coronary artery without angina pectoris; E78.5 Hyperlipidemia, unspecified; I24.8 Other forms of acute ischemic heart disease; Z79.01 Long term (current) use of anticoagulants; Z95.1 Presence of aortocoronary bypass graft; Z95.2 Presence of prosthetic heart valve
CPT/HCPCS: 36415; 70496; 70498; 80053; 93005; 96374; 99217; 99222; 99285; 70450; 71046; 83735; 83880; 84443; 84484; 85025; 85379; 85610; 85730; 93010; 93306; 99219; 99284; G0378; J1941; J3490

== ENCOUNTER 2018-11-06 12:29 | Outpatient (REF) | payer MEDICAID, SELFPAY ==
[2018-11-06 22:13] LABS: Abs Immature Grans 0.05 k/cumm (0.0-0.09); Absolute Basophil Count 0.05 k/cumm (0.0-0.2); Absolute Eosinophil Count 0.11 k/cumm (0.0-0.7); Absolute Lymphocyte Count 1.28 k/cumm (1.2-3.4); Absolute Monocyte Count 1.19 k/cumm (0.11-0.7); Absolute Neutrophil Count 5.92 k/cumm (1.2-6.7); Basophils % 0.6; Eosinophils % 1.3; HCT 47.4 % (40.0-50.0); HGB 15.1 g/dL (13.5-17.5); Immature Grans % 0.6; Lymphocytes % 14.9; Mean Corp. HGB Concentration 31.9 g/dL (32.0-36.0); Mean Corpuscular Hemoglobin 29.6 pg (27.0-33.0); Mean Corpuscular Volume 92.9 fL (80-95); Monocytes % 13.8; Neutrophils % 68.8; Platelet Count 201 x1000/uL (130-400); RBC Distribution Width 13.4 % (11.8-14.1)
[2018-11-06 22:28] LABS: Hemoglobin A1C 5.7 % (4.5-6.2)
[2018-11-06 22:40] LABS: ALT 30 U/L (16-63); AST 15 U/L (15-37); Albumin 3.4 g/dL (3.4-5.0); Alkaline Phosphatase 101 U/L (46-116); Anion Gap 8.7 mmol/L (3-11); BUN 18 mg/dL (7-18); Bilirubin, Total 0.7 mg/dL (0.2-1.0); CO2 28.3 mmol/L (21.0-32.0); CREATININE 1.02 mg/dL (0.70-1.30); Calcium 8.5 mg/dL (8.5-10.1); Chloride 105 mmol/L (98-107); Glucose 92 mg/dL (70-100); Potassium 4.2 mmol/L (3.5-5.1); Sodium 142 mmol/L (136-145)
== END 2018-11-06 12:49 ==
LOC: NCHCN 12:29
PROVIDERS: PCP Physician Assistant Medical; Visit Provider Physician Assistant Medical
DX: R53.83 Other fatigue (principal); R73.09 Other abnormal glucose; R10.9 Unspecified abdominal pain
CPT/HCPCS: 80053; 83036; 84443; 85025

== ENCOUNTER 2018-11-13 00:28 | Outpatient (CLI) | payer BC, MEDICAID, SELFPAY ==
[2018-11-13] MEDS: Breeza Beverage 473 ML BTL PO ×2 (09:35→10:52)
--- NOTE | 2018-11-13 10:30 | DI.CT_ITS ---
EXAM: CT ABDOMEN PELVIS W CLINICAL HISTORY: ABD PAIN, R10.9, DIVERTICULAR DISEASE OF COLON, K57.30. TECHNIQUE: The examination was carried out according to the usual protocol with an intravenous admin istration of 100 cc of Omnipaque 350 and oral ingestion of 50 cc of dilute Omnipaque. COMPARISON: CT BRAIN NECK CTA from 08/01/2018 FINDINGS: The liver is intact. There are several faint densities in the fundus of the gallbladder consistent w ith small gallstones. The gallbladder wall is unremarkable. There is no pericholecystic fluid. The p ancreas, spleen and kidneys are unremarkable. The adrenals are unremarkable. Gas is scattered throug hout the colon. There is nothing to suggest an acute appendix. There is no localized region of meredith l wall thickening. Note is made of a few scattered diverticula in the distal descending colon and tr ansverse colon. There is no evidence of free air or free fluid in the intraperitoneal space. The bl adder is nondistended. Reproductive organs appear intact. There is no evidence of an aortic aneurys m. No acute bony abnormality is seen. IMPRESSION: Fluid and scattered fecal material is noted throughout the colon. No acute abnormality is identified.
[2018-11-13] MEDS: Omnipaque 350 MG/ML 50 ML BTL PO (10:50)
[2018-11-13] MEDS: Omnipaque 350 MG/ML 100 ML BTL IJ (10:52)
== END 2018-11-13 00:48 ==
PROVIDERS: PCP Physician Assistant Medical; Visit Provider Physician Assistant Medical
DX: R10.9 Unspecified abdominal pain (principal); K57.30 Diverticulosis of large intestine without perforation or abscess without bleeding; K80.70 Calculus of gallbladder and bile duct without cholecystitis without obstruction
CPT/HCPCS: 74177; J3490; Q9967

== ENCOUNTER 2018-11-21 17:16 | Emergency (ER) | payer MEDICAID, SELFPAY ==
[2018-11-21] VITALS (40 sets, daily range): BP systolic 100–141; BP diastolic 41–77; PULSE 59–76; RESP 14–26; TEMP 37–37.5; O2SAT 89–97
--- NOTE | 2018-11-21 17:42 | ED.GENADUL_ITS ---
Discharge Plan Disposition Patient Disposition: HOME Condition: Fair Discharge Details Chief Complaint: Abd Prob Clinical Impression: Proctocolitis, Acute hypokalemia Primary Care Provider: Es Clinton ED Provider: Radha Maldonado Home Meds and New Rx's Prescriptions: New metronidazole [Flagyl] 500 mg tablet 500 mg PO TID 10 Days Qty: 30 RF: 0 Continued atorvastatin [Lipitor] 40 MG tablet 40 mg PO HS RF: 0 aspirin [Aspir-81] 81 MG tablet,delayed release (DR/EC) 81 mg PO DAILY RF: 0 albuterol sulfate [ProAir HFA] 200 PUFF HFA aerosol inhaler 2 puff Inhalation Q4H PRN PRNQty: 1 RF: 0 tamsulosin 0.4 MG capsule 0.4 mg PO DAILY@0830 RF: 0 Eliquis 5 MG tablet 5 mg PO BID Qty: 60 RF: 0 metoprolol tartrate 50 mg Tablet 50 mg BID RF: 0 furosemide 20 mg Tablet 20 mg DAILY RF: 0 amiodarone 200 mg Tablet 100 mg DAILY RF: 0 hydrocortisone acetate 25 mg Suppository 25 mg MT DAILY PRNRF: 0 nitroglycerin 0.4 mg Tablet, Sublingual 0.4 mg SUBLINGUAL Q5-15M PRNRF: 0 docusate sodium [Colace] 100 mg Capsule 100 mg PO BID RF: 0 Prilosec OTC 20 mg Tablet,Delayed Release (Dr/Ec) 20 mg PO DAILY RF: 0 bupropion HCl [Wellbutrin XL] 300 mg Tablet Extended Release 24 Hr 300 mg PO QAM RF: 0 Discharge Instructions Instructions: Metronidazole (By mouth), Hypokalemia (ED), Acute Diarrhea (ED) Additional Instructions: I am concerned that this is a C. difficile infection. Please encourage hydration. We will need a confirmatory stool test. Please bring the stool sample in the earliest convenience. Will need close follow-up with primary care, please call tomorrow to schedule appointment. I would like free to be s een in the next 48 hours. Potassium is low, you should continue with oral potassium replacement. Please take the Flagyl as prescribed, even if symptoms improve please take the entire course. If you develop increased pain, fevers/chills or other new/worsening symptoms please seek care urgently once again. Referrals: Es Clinton PA [Primary Care Provider] - Discharge Data Discharge Date/Time-TO BE ENTERED AT DEPARTURE: 11/21/18 22:39 Medical Decision Making Patient is a pleasant 63-year-old male with history of CAD, diverticulitis, hypertension, high cholesterol, obesity, skin neoplasm, colon adenomas. Patient is status post appendectomy, colectomy, cardiac catheterization. Patient reports that personally 3 weeks ago he was evaluated by his primary care. At that point, there was concern for him having diverticulitis and patient was begun on ciprofloxacin and Flagyl. He was on this for 1 week. The same that he was evaluated by them, he underwent a CT scan that did not have evidence of diverticulitis. States that while on antibiotics, his pain did seem to improve some. However, the pain has increased once again. He is endorsing pain along the bilateral lower quadrants. Describes this primarily as a cramping and burning. States that also recently has began having very watery bowel movements. States he did see some blood-tinged stool today. Is feeling fatigued and generally weaker than typical. Denies any recent travel. Did take the antibiotics as were prescribed. Is having some tenderness with bowel movements but associates this with the frequency of his stools. States he has had approximately 6 watery bowel movements thus far today. Has been incontinent of stool over the past 48 hours. No one else has had similar illnesses. He was not experiencing this with the initial onset of his discomfort. On exam, the patient is an obese male. He does have multiple scars over the abdomen consistent with his history of colectomy and appendectomy. Abdomen is otherwise benign. He does not have any peritoneal findings. Abdomen is soft. He has good bowel sounds. I did perform a rectal exam and noted bright red blood. However, this does not seem to be mixed in with the stool. This seemed to be more coming from hemorrhoid that was also noted on exam. I do not see any evidence of thrombosis on exam. Normal cardiovascular exam, lungs were clear bilaterally. Vital signs within normal limits. Plan for repeat imaging, laboratory evaluation EKG. Discussed this plan with the patient his . He declines any analgesics at this time. EKG reviewed by Dr. Gongora. Patient is in normal sinus rhythm with a rate of 63. She advised no acute ischemic changes noted. Labs reviewed. Patient has elevation of his white count with now being elevated at 12.6. Potassium is low at 3.0. We will replenish this while here. Lactate is slightly elevated 1.5. Normal kidney function. No anion gap. Bicarb is normal. CT reviewed by radiologist: FINDINGS: Lungs: The visualized portions of the lung bases demonstrate no acute disease. Mediastinum: A small hiatal hernia is present. Liver: There is moderate enlargement of the liver. There is a diffuse decrease in hepatic parenchymal density, consistent with fatty infiltration. Gallbladder and bile ducts: Cholelithiasis is present. No acute gallbladder pathology. There is no evidence of biliary ductal dilation. Pancreas: Normal. No ductal dilation. Spleen: Normal. No splenomegaly. Adrenals: Normal. No mass. Kidneys and ureters: Normal. No hydronephrosis. Stomach and bowel: There is circumferential wall thickening throughout the rectum, distal sigmoid, descending colon, transverse colon, and ascending colon. There is associated pericolonic fat stranding. There is no bowel obstruction. The small bowel appears unremarkable. No other segmental bowel wall thickening is appreciated. Appendix: No evidence of appendicitis. Intraperitoneal space: Unremarkable. No free air. No significant fluid collection. Vasculature: The vasculature demonstrates diffuse mild atherosclerotic calcification. Left retroaortic renal vein is incidentally noted. Lymph nodes: Unremarkable. No enlarged lymph nodes. Bladder: Unremarkable as visualized. Reproductive: Unremarkable as visualized. Bones/joints: No acute abnormality or aggressive osseous lesion. Soft tissues: Unremarkable. IMPRESSION: Acute infectious/inflammatory proctocolitis without evidence of bowel obstruction. Discussed these findings with the patient. With the patient's diffuse discomfort, recent use of ciprofloxacin, watery diarrhea, I am concerned for C. difficile is being the main driving source of his discomfort and continued diarrhea. Patient will begin on Flagyl. We have not been able to obtain a stool sample here. Patient does report that he had a watery bowel movement while getting his CT scan are unable to obtain any sample. Patient received hydration, p.o. and IV potassium. We did discuss plus/minus of admission and patient prefers to be discharged home at this point. Both he and his feel that this is safe for him and he is able to return with new or worsening symptoms. He was given strict return precautions. We will continue with the Flagyl. He will begin oral potassium supplementation. Advised that he begin a probiotic. Advised prompt follow-up with primary care, they will call tomorrow and advised to try to be seen within the next 48 hours. All of his questions and concerns were addressed and he is in agreement with this plan. Patient was discharged home with stool collection kit and will bring this in as soon as he is able. HPI General Mode of arrival: ambulatory . Date/Time Provider Initiated Documentation: 11/21/18 17:41 . Limitations to Documentation: no limitations . Information obtained by: patient, family () and RN notes reviewed . History of Present Illness 63 year old M presents to the emergency department with the chief complaint of diffuse abdominal cramping, worse in bilateral lower quadrants, described as moderate and similar to prior episodes (hx of diverticulitis), Quality is described as burning (describes as burning and cramping), and is localized to the abdomen. Patient reports no radiation. Patient started experiencing this week(s) (3) and it has been constant. No relieving factors improve symptom(s), No exacerbating factors reported . Patient notes loss of appetite, malaise, shortness of breath (exertional, unchanged) and weakness (generalized); denies chest pain, cough, diaphoresis, fever/chills, nausea/vomiting and syncope. Patient did receive the following treatments prior to arrival, none Related Data Home Medications Medication Instructions Recorded Confirmed aspirin [Aspir-81] 81 mg PO DAILY tab-cap 05/24/12 11/21/18 atorvastatin [Lipitor] 40 mg PO HS 05/24/12 11/21/18 albuterol sulfate [ProAir HFA] 2 puff INHALATION Q4H PRN PRN #1 10/11/16 11/21/18 inh tamsulosin 0.4 mg PO DAILY@0830 07/21/17 11/21/18 Eliquis 5 mg PO BID #60 tab 07/23/17 11/21/18 furosemide 20 mg DAILY 08/01/18 11/21/18 metoprolol tartrate 50 mg BID 08/01/18 11/21/18 amiodarone 100 mg DAILY 08/02/18 11/21/18 Prilosec OTC 20 mg PO DAILY 11/21/18 11/21/18 bupropion HCl [Wellbutrin XL] 300 mg PO QAM 11/21/18 11/21/18 docusate sodium [Colace] 100 mg PO BID 11/21/18 11/21/18 hydrocortisone acetate 25 mg MT DAILY PRN 11/21/18 11/21/18 metronidazole [Flagyl] 500 mg PO TID 10 Days #30 tab 11/21/18 nitroglycerin 0.4 mg SUBLINGUAL Q5-15M PRN 11/21/18 11/21/18 Previous Rx's Medication Instructions Recorded albuterol sulfate [ProAir HFA] 2 puff INHALATION Q4H PRN PRN #1 10/11/16 inh Eliquis 5 mg PO BID #60 tab 07/23/17 metronidazole [Flagyl] 500 mg PO TID 10 Days #30 tab 11/21/18 Allergies Allergy/AdvReac Type Severity Reaction Status Date / Time No Known Allergies Allergy Unverified 11/21/18 17:27 General Stated Complaint: Abd Prob BILLIE: 3 Review of Systems Constitutional Constitutional: Reports as per HPI, Denies chills, Reports fatigue, Denies fever(s) and Denies headache(s) ENT Ears, Nose, Mouth, and Throat: Denies headache(s) Cardiovascular Cardiovascular: Reports as per HPI, Denies chest pain and Denies dyspnea Respiratory Respiratory: Reports as per HPI, Denies cough and Denies dyspnea Gastrointestinal Gastrointestinal: Reports as per HPI, Reports abdominal pain, Reports change in bowel habits, Denies coffee ground emesis, Denies constipation, Reports cramping, Reports fecal incontinence (last 2 days), Reports diarrhea (watery stools past week), Reports loose stools, Denies nausea, Denies vomiting and Denies hematemesis Genitourinary Genitourinary: Denies system reviewed and no additional complaints, except as docu (patient denies any change in urinary habits) Musculoskeletal Musculoskeletal: Reports as per HPI and Denies back pain Integumentary/Breasts Skin/Breast: Reports as per HPI and Denies rash Neurologic Neurologic: Reports as per HPI and Denies headache(s) Endocrine Endocrine: Reports fatigue PFSH Medical History 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 -> EMERGENT ANGIOPLASTY = OCCLUDED RCA, 50% CIRCUMFLEX (EF 40%POST-MN) ADENOMA COLON POLYP CAD Diverticulitis (~1989) EMERGENT COLECTOMY & TEMPORARY COLOSTOMY Essential hypertension Hyperlipidemia Obesity SKIN NEOPLASM Surgical History Angioplasty Appendectomy Arthroplasty of knee LEFT TORN ACL & MENISCUS COLECTOMY Colonoscopy - MAC (~2007) Colonoscopy - MAC (05/28/16) Colostomy (~1989) DIVERTICULITIS WITH EMERGENT COLECTOMY AND TEMPORARY COLOSTOMY. Social History Smoking/Tobacco Use Status: Former Tobacco Use Alcohol Intake: current Alcohol Intake frequency: holidays/special occasions only Drug use: Never Substance use type: does not use Do you feel safe at home: Yes Do you feel safe in your relationship?: Yes Exam Const General: cooperative, healthy appearing, comfortable, no acute distress and well developed Nutritional Appearance: well nourished and obese Orientation: alert and awake HENMT Head: normal to inspection Mouth: mucous membranes dry (appears dry on exam) Resp Effort & Inspection: normal respiratory effort, able to speak in complete sentences and no respiratory distress Auscultation: clear to auscultation bilaterally, no rales, no rhonchi and no wheezes Cardio Rate: regular rate Rhythm: regular rhythm Heart Sounds: S1 normal and S2 normal GI Inspection: obesity, scar, no visible herniation and no visible pulsation Palpation: soft, no hepatosplenomegaly, not firm, no guarding, no hepatomegaly, no hernias, no masses and not rigid Percussion: normal to percussion Auscultation: normal bowel sounds Rectal Exam: visual inspection normal (small hemorrhoid noted), normal sphincter tone, prostate normal, abnormal stool with leroy blood (blood from sphincter, not mixed in stool, appears from the rectum itself), No fecal impaction, heme positive stool, hemorrhoids and No laceration Back/Spine/Pelvis Back: no CVA tenderness Skin General skin exam: no rashes or lesions noted Trauma: no lacerations or abrasions Neuro General: alert and awake Cognition: normal cognition Speech: speech normal Gait: normal gait Extrem General: normal to inspection, no pedal edema, no calf tenderness and normal gait Psych Appearance: grossly normal and well kempt Mental Status: mental status grossly normal Speech and Movement: speech and movement normal Course Vital Signs Vital signs: Vital Signs Temperature 37.0 C 11/21/18 17:19 Pulse 76 11/21/18 17:19 Respiratory Rate 16 11/21/18 17:19 Blood Pressure 128/69 11/21/18 17:19 Pulse Oximetry 95 11/21/18 17:19 Temperature 37.0 C 11/21/18 17:19 Pulse 76 11/21/18 17:19 Respiratory Rate 16 11/21/18 17:19 Respiratory Effort Non-Labored 11/21/18 17:24 Blood Pressure 128/69 11/21/18 17:19 Blood Pressure Position Sitting 11/21/18 17:19 Pulse Oximetry 95 11/21/18 17:19 Oxygen Delivery Method Room Air 11/21/18 17:19 Oxygen Flow Rate 0 11/21/18 17:19 Pain Level 5 11/21/18 17:34
[2018-11-21] MEDS: Lactated Ringers 1,000 ML 500 ML IV (18:16)
[2018-11-21 18:31] LABS: Lactate 1.5 mmol/L (0.6-1.4)
[2018-11-21 18:42] LABS: Abs Immature Grans 0.06 k/cumm (0.0-0.09); Absolute Basophil Count 0.04 k/cumm (0.0-0.2); Absolute Lymphocyte Count 0.83 k/cumm (1.2-3.4); Absolute Monocyte Count 1.68 k/cumm (0.11-0.7); Absolute Neutrophil Count 9.92 k/cumm (1.2-6.7); Basophils % 0.3; Eosinophils % 0.6; HCT 48.2 % (40.0-50.0); HGB 15.9 g/dL (13.5-17.5); Immature Grans % 0.5; Lymphocytes % 6.6; Mean Corpuscular Hemoglobin 29.6 pg (27.0-33.0); Mean Corpuscular Volume 89.8 fL (80-95); Mean Platelet Volume 11.5 fL (8.0-11.0); Monocytes % 13.3; Neutrophils % 78.7; Platelet Count 156 x1000/uL (130-400); RBC 5.37 m/cumm (4.50-6.00); RBC Distribution Width 13.5 % (11.8-14.1)
[2018-11-21 18:44] LABS: Absolute Eosinophil Count 0.08 k/cumm (0.0-0.7)
[2018-11-21 18:54] LABS: ALT 43 U/L (16-63); AST 20 U/L (15-37); Albumin 3.3 g/dL (3.4-5.0); Alkaline Phosphatase 92 U/L (46-116); Anion Gap 7.7 mmol/L (3-11); BUN 18 mg/dL (7-18); CO2 28.3 mmol/L (21.0-32.0); CREATININE 1.14 mg/dL (0.70-1.30); Calcium 8.4 mg/dL (8.5-10.1); Chloride 101 mmol/L (98-107); Glucose 96 mg/dL (70-100); Magnesium 1.9 mg/dL (1.8-2.4); Sodium 137 mmol/L (136-145); Total Protein 7.8 g/dL (6.4-8.2); Troponin I < 0.05 ng/mL (0.00-0.06)
[2018-11-21 19:20] LABS: Diff Comment Diff Reviewed; RBC Morphology Normal
[2018-11-21] MEDS: Omnipaque 350 MG/ML 100 ML BTL IJ (19:37)
--- NOTE | 2018-11-21 19:55 | DI.CT_ITS ---
EXAM: CT ABDOMEN PELVIS W CLINICAL HISTORY: lower abdominal pain, hx of diverticulitis. TECHNIQUE: Imaging Protocol: Axial computed tomography images with coronal and sagittal reformatted images were created and reviewed CONTRAST MATERIAL: Intravenous: Omnipaque 350 Contrast volume:100 mL contrast route:IV - Oral: Yes COMPARISON: CT ABDOMEN PELVIS W from 11/13/2018 FINDINGS: ABDOMEN: Lung Bases: Dependent atelectatic changes are seen in the lung bases. Liver: There is diffuse decreased attenuation of the liver suggesting fatty infiltration. No mass is identified. The portal, superior mesenteric, and splenic veins are patent. Gallbladder and biliary tract: There are stones seen within the gallbladder. No biliary ductal dilat ation is present. Pancreas: Normal density, no abnormal calcifications or inflammatory process. Spleen: Normal. Kidneys: Normal size, contour and axis. No radiodense stones or obstructive uropathy. No masses seen. Adrenal glands: No masses seen. Abdominal Aorta: There is mild atherosclerosis of the abdominal aorta. No aneurysmal dilatation is p resent. Incidental note is made of a retroaortic left renal vein. Lymph nodes: Unremarkable. PELVIS: Bladder: Symmetric distention, no gross wall thickening. Bowel: There is diffuse bowel wall thickening throughout the colon and rectum. No diverticular disea se is present. Mild stranding of the pericolonic fat. No findings to suggest an acute appendicitis are present. No evidence of obstruction is seen. There is a small hiatal hernia. Peritoneal cavity: No ascites, collection or mesenteric inflammatory response. There is a small midli ne supraumbilical fat containing anterior abdominal wall hernia. Bones: Degenerative changes are present throughout the spine. Reproductive organs: Within normal limits. Impression: Diffuse thickening of the wall of the colon and rectum consistent with inflammatory/infectious coliti s/proctitis. DATA REPOSITORY: All CT scans at this facility are submitted to the National Radiology Data Registry (NRDR) Dose Index Registry (DIR) with the [employer] ([employer]). RADIATION OPTIMIZATION: All CT scans at this facility use at least one of these dose optimization te chniques: automated exposure control; mA and/or kV adjustment per patient size (includes targeted exa ms where dose is matched to clinical indication); or iterative reconstruction.
[2018-11-21] MEDS: POTASSIUM CHLORIDE 20 MEQ/100 ML BAG 50 MEQ IVPB (20:01)
[2018-11-21] MEDS: Potassium Chloride 20 MEQ TABCR PO (20:01)
[2018-11-21] MEDS: Acetaminophen 325 MG TAB 650 MG PO (20:31)
--- NOTE | 2018-11-21 20:42 | DI.VRAD_ITS ---
PROCEDURE INFORMATION: Exam: CT Abdomen and pelvis with contrast Exam date and time: 11/21/2018 6:12 PM Clinical history: 63 years old, male; Abdominal pain; Localized; Lower; Prior surgery; Surgery date: 6+ months; Surgery type: Appendectomy and colectomy; Patient HX: HX of diverticulitis; Additional info: Lower abdominal pain and diarrhea TECHNIQUE: Imaging protocol: Computed tomography of the abdomen and pelvis with intravenous contrast. Radiation optimization: All CT scans at this facility use at least one of these dose optimization techniques: automated exposure control; mA and/or kV adjustment per patient size (includes targeted exams where dose is matched to clinical indication); or iterative reconstruction. Contrast material: OMNIPAQUE 350; Contrast volume: 100 ml; Contrast route: IV; COMPARISON: CT ABDOMEN PELVIS W 11/13/2018 10:35 AM FINDINGS: Lungs: The visualized portions of the lung bases demonstrate no acute disease. Mediastinum: A small hiatal hernia is present. Liver: There is moderate enlargement of the liver. There is a diffuse decrease in hepatic parenchymal density, consistent with fatty infiltration. Gallbladder and bile ducts: Cholelithiasis is present. No acute gallbladder pathology. There is no evidence of biliary ductal dilation. Pancreas: Normal. No ductal dilation. Spleen: Normal. No splenomegaly. Adrenals: Normal. No mass. Kidneys and ureters: Normal. No hydronephrosis. Stomach and bowel: There is circumferential wall thickening throughout the rectum, distal sigmoid, descending colon, transverse colon, and ascending colon. There is associated pericolonic fat stranding. There is no bowel obstruction. The small bowel appears unremarkable. No other segmental bowel wall thickening is appreciated. Appendix: No evidence of appendicitis. Intraperitoneal space: Unremarkable. No free air. No significant fluid collection. Vasculature: The vasculature demonstrates diffuse mild atherosclerotic calcification. Left retroaortic renal vein is incidentally noted. Lymph nodes: Unremarkable. No enlarged lymph nodes. Bladder: Unremarkable as visualized. Reproductive: Unremarkable as visualized. Bones/joints: No acute abnormality or aggressive osseous lesion. Soft tissues: Unremarkable. IMPRESSION: Acute infectious/inflammatory proctocolitis without evidence of bowel obstruction. Dictated and Authenticated by: Piotr Yao MD. Ordering:JOSÉ Garcia MD
[2018-11-21] MEDS: metroNIDAZOLE 500 MG TAB PO ×2 (22:34)
== END 2018-11-21 22:39 | disposition home or self-care (01) ==
PROVIDERS: Emergency Provider Physician Assistant; PCP Physician Assistant Medical
DX: K51.30 Ulcerative (chronic) rectosigmoiditis without complications (principal); E87.6 Hypokalemia; I10 Essential (primary) hypertension
CPT/HCPCS: 36415; 80053; 93005; 96361; 96365; 96366; 99285; 74177; 83605; 83735; 84484; 85025; 93010; J3480; J3490

== ENCOUNTER 2018-11-22 17:39 | Outpatient (REF) | payer MEDICAID, SELFPAY ==
[2018-11-23 20:12] LABS: Specimen Description Feces
[2018-11-24 09:59] LABS: Result Positive
== END 2018-11-22 17:59 ==
LOC: NCHCN 17:39
PROVIDERS: PCP Physician Assistant Medical; Visit Provider Physician Assistant Medical
DX: R19.7 Diarrhea, unspecified (principal)
CPT/HCPCS: 83630; 87324; 87798

== ENCOUNTER 2018-11-29 07:55 | Emergency (ER) | payer MEDICAID, SELFPAY ==
[2018-11-29] VITALS (53 sets, daily range): BP systolic 108–130; BP diastolic 45–93; PULSE 59–117; RESP 11–28; TEMP 37.4; O2SAT 89–98
--- NOTE | 2018-11-29 08:27 | ED.GENADUL_ITS ---
Discharge Plan Disposition Patient Disposition: HOME Condition: Improving Discharge Details Chief Complaint: SOB Clinical Impression: Acute on chronic clinical systolic heart failure, History of Clostridioides difficile infection Primary Care Provider: Es [facility] ED Provider: Sheila Gongora Home Meds and New Rx's Prescriptions: New vancomycin 125 mg capsule 125 mg PO QID 10 Days Qty: 40 RF: 0 furosemide [Lasix] 40 mg tablet 40 mg PO DAILY 7 Days Qty: 7 RF: 0 Continued atorvastatin [Lipitor] 40 MG tablet 40 mg PO HS RF: 0 aspirin [Aspir-81] 81 MG tablet,delayed release (DR/EC) 81 mg PO DAILY RF: 0 albuterol sulfate [ProAir HFA] 200 PUFF HFA aerosol inhaler 2 puff Inhalation Q4H PRN PRNQty: 1 RF: 0 tamsulosin 0.4 MG capsule 0.4 mg PO DAILY@0830 RF: 0 Eliquis 5 MG tablet 5 mg PO BID Qty: 60 RF: 0 metoprolol tartrate 50 mg Tablet 50 mg BID RF: 0 furosemide 20 mg Tablet 20 mg DAILY RF: 0 amiodarone 200 mg Tablet 100 mg BID RF: 0 hydrocortisone acetate 25 mg Suppository 25 mg NE DAILY PRNRF: 0 nitroglycerin 0.4 mg Tablet, Sublingual 0.4 mg SUBLINGUAL Q5-15M PRNRF: 0 docusate sodium [Colace] 100 mg Capsule 100 mg PO BID RF: 0 Prilosec OTC 20 mg Tablet,Delayed Release (Dr/Ec) 20 mg PO DAILY RF: 0 bupropion HCl 300 mg Tablet Extended Release 24 Hr 300 mg PO AC RF: 0 Discharge Instructions Instructions: Heart Failure (ED), Clostridium Difficile Infection (ED) Additional Instructions: Take the antibiotics until finished. Take the increased dose of Lasix (40mg) daily for the next 7 days. Continue to drink plenty of fluids and get plenty of rest. You can also supplement your diet with probiotics or yogurt to help with diarrhea. Follow-up with your scheduled appointment with your primary care doctor on Tuesday. Return immediately to the emergency department if you develop any worsening or new concerning symptoms. Discharge Data Discharge Date/Time-TO BE ENTERED AT DEPARTURE: 11/29/18 14:40 Discharge Physician: Sheila Gongora Medical Decision Making 63yo M with a history of VT, hypertension, hyperlipidemia, angioplasty who presents to the ED with complaint of shortness of breath since yesterday. Took an extra dose of Lasix yesterday without relief. Patient was recently treated for possible diverticulitis with Cipro and Flagyl per his PCP and seen here 1 week ago for abdominal pain and diarrhea and tested positive for C. difficile colitis. He has been treated with Flagyl and vancomycin for the C. difficile but states he thinks he developed shortness of breath on these antibiotics so he stopped them.. I doubt patient's shortness of breath is due to these recent antibiotics. He is morbidly obese, has fine crackles, scattered wheezing and 1+ pitting lower extremity edema. EKG notes a rate of 65, sinus with nonspecific QRS widening, no acute ST T wave ischemic changes and no acute change from previous EKG. Differential diagnosis includes acute CHF exacerbation, acute bronchitis, pneumonia, ACS. History presentation not consistent with PE and he is already on Eliquis for A. fib. Will place an IV, give DuoNeb, screening labs, chest x-ray. 1030 -- Labs and imaging reviewed. White blood cell count 10. Normal electrolytes. Troponin negative. BNP 1493, was 1537 in July 2018. Chest x-ray notes findings consistent with CHF. Will give 40 mg Lasix IV. O2 sat 89 to 90%, will give another albuterol neb, and reassess. 1200 --patient states that shortness of breath is improved. O2 sat 89% on room air. States usually in the mid 90s. Heart rate and blood pressure remain within normal range. Will obtain a CT chest to rule out PE. Will give another 20 mg Lasix as well as another albuterol neb as he did complain of cough. 1400 --CT negative for PE. Notes bilateral pleural effusions as well as scarring right upper lobe but no evidence of new pneumonia. Patient states he feels better and feels good to go home. He was offered admission for his symptoms but declines. O2 sat 94% on room air. Will double his Lasix from 20 to 40 mg daily for the next week. He was also given a new prescription for vancomycin to finish completely for treatment of his C. difficile colitis. He has an appointment with his primary care doctor on Tuesday which she is urged to keep for reevaluation. He is advised to return here immediately with any worsening or concerning symptoms. Medical Records Medical records reviewed: Yes I reviewed the patient's medical records. Imaging Data Radiologic Study: Radiologist's impression: XR CHEST 2V PA LATERAL INDICATION: shortness of breath, r/o acute disease/chf/pna. COMPARISON: XR CHEST 2V PA LATERAL from 08/01/2018 TECHNIQUE: 2D digital imaging was performed. FINDINGS: The lungs are free of infiltrate. There is a question regarding some increased prominence of the upper lobe vasculature raising the possibility of pulmonary venous hypertension. The possibility of mild congestive failure could not be entirely excluded. Heart is not enlarged in this patient who is status post AVR. IMPRESSION: Question pulmonary venous hypertension and possible mild CHF. Lab Data Lab results reviewed: Yes I reviewed the patient's lab results. Labs: Laboratory Tests Range/Units 11/29/18 11/29/18 08:25 08:25 WBC (4.4-10.8) k/cumm 10.85 H RBC (4.50-6.00) m/cumm 4.90 Hgb (13.5-17.5) g/dL 14.4 Hct (40.0-50.0) % 44.4 MCV (80-95) fL 90.6 MCH (27.0-33.0) pg 29.4 MCHC (32.0-36.0) g/dL 32.4 RDW (11.8-14.1) % 13.5 Plt Count (130-400) x1000/uL 205 MPV (8.0-11.0) fL 11.2 H Immature Gran % 1.9 Neutrophils % 75.3 Lymphocytes % 7.6 Monocytes % 13.7 Eosinophils % 1.0 Basophils % 0.5 Absolute Neutrophils (1.2-6.7) k/cumm 8.17 H Absolute Lymphocytes (1.2-3.4) k/cumm 0.82 L Absolute Monocytes (0.11-0.7) k/cumm 1.49 H Absolute Eosinophils (0.0-0.7) k/cumm 0.11 Absolute Basophils (0.0-0.2) k/cumm 0.05 Sodium (136-145) mmol/L 142 Potassium (3.5-5.1) mmol/L 4.0 Chloride (98-107) mmol/L 105 Carbon Dioxide (21.0-32.0) mmol/L 30.6 Anion Gap (3-11) mmol/L 6.4 BUN (7-18) mg/dL 12 Creatinine (0.70-1.30) mg/dL 1.00 Estimated GFR/1.73 m2 (mL/min/1.73m2) >= 60.00 Glucose (70-100) mg/dL 124 H Calcium (8.5-10.1) mg/dL 8.0 L Magnesium (1.8-2.4) mg/dL 1.9 Total Bilirubin (0.2-1.0) mg/dL 0.7 AST (15-37) U/L 21 ALT (16-63) U/L 47 Alkaline Phosphatase (46-116) U/L 79 Troponin I (0.00-0.06) ng/mL < 0.05 NT-Pro-B Natriuret Pep ( - 299) pg/mL 1493 H Total Protein (6.4-8.2) g/dL 6.9 Albumin (3.4-5.0) g/dL 2.8 L ECG Data Attestation: I personally reviewed and interpreted this ECG (s) as follows: Interpretation: rate of 65 - sinus, no acute ST elevation or depression. NE 164. QTc 447. Nonspecific QRS widening, QRS 116, seen in previous EKG. No acute change from previous EKG. HPI General Mode of arrival: ambulatory . Date/Time Provider Initiated Documentation: 11/29/18 08:01 . Limitations to Documentation: no limitations . Information obtained by: patient . HPI Narrative: Patient is a 63-year-old male with history of VT and angioplasty, hypertension, hyperlipidemia, atrial fibrillation on Eliquis who presents for shortness of breath since yesterday. Patient states this is worse with exertion. He took an extra dose of his Lasix yesterday without relief. He does admit to occasional cough. He does admit to some mild shortness of breath at this time. He states he was seen by his primary care doctor last month for abdominal pain and diagnosed with possible diverticulitis and started on Cipro and Flagyl. He states he finished this course and then presented here last week with abdominal pain and diarrhea. He was started on Flagyl per the emergency department and states he stopped this due to side effects of which she does not remember. He states he then followed up with his primary care doctor who started him on vancomycin but states he stopped this as well due to headache. He states overall his diarrhea is improving and now has 3-4 bowel movements a day which are becoming more formed but they are still loose. He states he has been taking Metamucil. He admits to occasional lower abdominal pain and nausea. He denies any fever, chest pain, vomiting or any urinary symptoms. Related Data Home Medications Medication Instructions Recorded Confirmed aspirin [Aspir-81] 81 mg PO DAILY tab-cap 05/24/12 11/29/18 atorvastatin [Lipitor] 40 mg PO HS 05/24/12 11/29/18 albuterol sulfate [ProAir HFA] 2 puff INHALATION Q4H PRN PRN #1 10/11/16 11/29/18 inh tamsulosin 0.4 mg PO DAILY@0830 07/21/17 11/29/18 Eliquis 5 mg PO BID #60 tab 07/23/17 11/29/18 furosemide 20 mg DAILY 08/01/18 11/29/18 metoprolol tartrate 50 mg BID 08/01/18 11/29/18 amiodarone 100 mg BID 08/02/18 11/29/18 Prilosec OTC 20 mg PO DAILY 11/21/18 11/29/18 docusate sodium [Colace] 100 mg PO BID 11/21/18 11/29/18 hydrocortisone acetate 25 mg NE DAILY PRN 11/21/18 11/29/18 nitroglycerin 0.4 mg SUBLINGUAL Q5-15M PRN 11/21/18 11/29/18 bupropion HCl 300 mg PO AC 11/29/18 11/29/18 furosemide [Lasix] 40 mg PO DAILY 7 Days #7 tab 11/29/18 vancomycin 125 mg PO QID 10 Days #40 cap 11/29/18 Previous Rx's Medication Instructions Recorded albuterol sulfate [ProAir HFA] 2 puff INHALATION Q4H PRN PRN #1 10/11/16 inh Eliquis 5 mg PO BID #60 tab 07/23/17 furosemide [Lasix] 40 mg PO DAILY 7 Days #7 tab 11/29/18 vancomycin 125 mg PO QID 10 Days #40 cap 11/29/18 Allergies Allergy/AdvReac Type Severity Reaction Status Date / Time No Known Allergies Allergy Unverified 11/21/18 17:27 General Stated Complaint: SOB BILLIE: 3 Review of Systems Review of Systems ROS Unobtainable: All systems reviewed & are unremarkable except as noted in HPI and below Constitutional Constitutional: Reports as per HPI, Denies chills and Denies fever(s) Eyes Eyes: Denies blurry vision ENT Ears, Nose, Mouth, and Throat: Denies dizziness, Denies sore throat and Denies throat swelling Cardiovascular Cardiovascular: Denies chest pain and Reports dyspnea Respiratory Respiratory: Denies cough and Reports dyspnea Gastrointestinal Gastrointestinal: Denies abdominal pain, Denies diarrhea and Denies vomiting Genitourinary Genitourinary: Denies hematuria and Denies dysuria Musculoskeletal Musculoskeletal: Denies back pain and Denies numbness Integumentary/Breasts Skin/Breast: Denies lesions and Denies rash Neurologic Neurologic: Denies dizziness, Denies focal weakness and Denies numbness Allergic/Immunologic Allergic/Immunologic: Denies throat swelling [facility] Medical History 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 -> EMERGENT ANGIOPLASTY = OCCLUDED RCA, 50% CIRCUMFLEX (EF 40%POST-VT) ADENOMA COLON POLYP CAD Diverticulitis (~1989) EMERGENT COLECTOMY & TEMPORARY COLOSTOMY Essential hypertension Hyperlipidemia Obesity SKIN NEOPLASM Surgical History Angioplasty Appendectomy Arthroplasty of knee LEFT TORN ACL & MENISCUS COLECTOMY Colonoscopy - MAC (~2007) Colonoscopy - MAC (05/28/16) Colostomy (~1989) DIVERTICULITIS WITH EMERGENT COLECTOMY AND TEMPORARY COLOSTOMY. Family History Mother Personal history of malignant neoplasm COLON Father Heart disease Sister Personal history of malignant neoplasm Brother Heart disease Other Hearing loss Social History Smoking/Tobacco Use Status: Former Tobacco Use Alcohol Intake: current Alcohol Intake frequency: holidays/special occasions only Drug use: Never Substance use type: does not use Do you feel safe at home: Yes Do you feel safe in your relationship?: Yes Exam Const General: cooperative, healthy appearing and no acute distress HENMT Head: normal to inspection Face and sinus: normal facial exam Eyes General: appearance normal, both eyes and all related structures Pupils: PERRL EOM: EOM intact bilaterally Neck Neck: normal visual inspection and No submandibular swelling Lymphatic: no lymphadenopathy noted Chest Chest: normal inspection of the chest and no tenderness Resp Effort & Inspection: normal respiratory effort and able to speak in complete sentences Auscultation: wheezes scattered wheezes and right upper Cardio Rate: regular rate Rhythm: regular rhythm GI Inspection: normal to inspection and obesity Palpation: soft, not firm, not rigid and nontender Auscultation: normal bowel sounds Skin General skin exam: no rashes or lesions noted Neuro General: alert, awake and oriented x3 Cognition: normal cognition Speech: speech normal Motor: muscle tone normal throughout Sensory Exam: no sensory deficits noted Extrem General: normal to inspection, full ROM, normal capillary refill, no calf tenderness bilaterally and edema Laterality: bilateral (1+) Psych Appearance: grossly normal Mental Status: mental status grossly normal Speech and Movement: speech and movement normal Affect: normal affect Course Vital Signs Vital signs: Vital Signs Temperature 99.3 F 11/29/18 07:59 Pulse 64 11/29/18 07:59 Respiratory Rate 22 11/29/18 07:59 Pulse Oximetry 94 L 11/29/18 07:59 Temperature 99.3 F 11/29/18 07:59 Temperature Source Skin 11/29/18 07:59 Pulse 64 11/29/18 07:59 Respiratory Rate 18 11/29/18 08:05 Respiratory Effort Non-Labored 11/29/18 08:05 Respiratory Depth Normal 11/29/18 08:05 Respiratory Pattern Normal 11/29/18 08:05 Blood Pressure Position Supine 11/29/18 07:59 Pulse Oximetry 94 L 11/29/18 07:59 Oxygen Delivery Method Room Air 11/29/18 07:59 Oxygen Flow Rate 0 11/29/18 07:59
--- NOTE | 2018-11-29 08:45 | DI.RAD_ITS ---
EXAM: XR CHEST 2V PA LATERAL INDICATION: shortness of breath, r/o acute disease/chf/pna. COMPARISON: XR CHEST 2V PA LATERAL from 08/01/2018 TECHNIQUE: 2D digital imaging was performed. FINDINGS: The lungs are free of infiltrate. There is a question regarding some increased prominence of the upp er lobe vasculature raising the possibility of pulmonary venous hypertension. The possibility of mild congestive failure could not be entirely excluded. Heart is not enlarged in this patient who is sta tus post AVR. IMPRESSION: Question pulmonary venous hypertension and possible mild CHF.
[2018-11-29 08:59] LABS: Abs Immature Grans 0.21 k/cumm (0.0-0.09); Absolute Basophil Count 0.05 k/cumm (0.0-0.2); Absolute Eosinophil Count 0.11 k/cumm (0.0-0.7); Absolute Lymphocyte Count 0.82 k/cumm (1.2-3.4); Absolute Monocyte Count 1.49 k/cumm (0.11-0.7); Absolute Neutrophil Count 8.17 k/cumm (1.2-6.7); Basophils % 0.5; HCT 44.4 % (40.0-50.0); HGB 14.4 g/dL (13.5-17.5); Immature Grans % 1.9; Lymphocytes % 7.6; Mean Corp. HGB Concentration 32.4 g/dL (32.0-36.0); Mean Corpuscular Hemoglobin 29.4 pg (27.0-33.0); Mean Corpuscular Volume 90.6 fL (80-95); Mean Platelet Volume 11.2 fL (8.0-11.0); Monocytes % 13.7; Neutrophils % 75.3; Platelet Count 205 x1000/uL (130-400); RBC Distribution Width 13.5 % (11.8-14.1); White Blood Cell Count 10.85 k/cumm (4.4-10.8)
[2018-11-29] MEDS: Albuterol/Ipratropium 3 ML UPD VIAL UPD (09:03)
[2018-11-29 09:29] LABS: ALT 47 U/L (16-63); AST 21 U/L (15-37); Albumin 2.8 g/dL (3.4-5.0); Alkaline Phosphatase 79 U/L (46-116); Anion Gap 6.4 mmol/L (3-11); BUN 12 mg/dL (7-18); Bilirubin, Total 0.7 mg/dL (0.2-1.0); CO2 30.6 mmol/L (21.0-32.0); Chloride 105 mmol/L (98-107); Glucose 124 mg/dL (70-100); Magnesium 1.9 mg/dL (1.8-2.4); NT-proBNP 1493 pg/mL; Sodium 142 mmol/L (136-145); Total Protein 6.9 g/dL (6.4-8.2); Troponin I < 0.05 ng/mL (0.00-0.06)
[2018-11-29] MEDS: Furosemide 40 MG/4 ML VIAL IVP (10:33)
[2018-11-29] MEDS: Albuterol 2.5 MG/3 ML INH SOLN VIAL UPD ×2 (10:51→12:45)
[2018-11-29] MEDS: Acetaminophen 500 MG TAB (10:53)
[2018-11-29] MEDS: Omnipaque 350 MG/ML 100 ML BTL IJ (12:28)
[2018-11-29] MEDS: Normal Saline Flush 10 ML SYR IVP (12:29)
--- NOTE | 2018-11-29 12:35 | DI.CT_ITS ---
EXAM: CT CHEST PE CTA CLINICAL HISTORY: hypoxia, r/o PE. TECHNIQUE: The study was carried out according to the usual protocol following intravenous contrast administration. COMPARISON: CT ABDOMEN PELVIS W from 11/21/2018 FINDINGS: There is no evidence of pulmonary emboli. There are small bilateral pleural effusions. There is a le ft upper lobe nodule measuring 1.4 x 0.7 cm. There is evidence of scarring in both lungs. There is n o evidence of aortic aneurysm or aortic dissection. Note is made of an aortic valve prosthesis in [place]. IMPRESSION: There is no evidence of pulmonary embolic disease. There are small bilateral pleural effusions. A pul monary nodule is demonstrated as described above. A follow-up chest CT is recommended in 3-6 months.
[2018-11-29] MEDS: Furosemide 20 MG/2 ML VIAL IVP (12:45)
== END 2018-11-29 14:40 | disposition home or self-care (01) ==
PROVIDERS: Emergency Provider Physician Assistant; PCP Physician Assistant Medical
DX: I50.23 Acute on chronic systolic (congestive) heart failure (principal); J90 Pleural effusion, not elsewhere classified; I25.2 Old myocardial infarction; I10 Essential (primary) hypertension
CPT/HCPCS: 36415; 71275; 80053; 93005; 94640; 96374; 96376; 99285; 71046; 83735; 83880; 84484; 85025; 93010; J1940; J1941; J3490; J7613; J7620

== ENCOUNTER 2018-12-06 15:13 | Outpatient (REF) | payer MEDICAID, SELFPAY ==
[2018-12-06 20:35] LABS: Abs Immature Grans 0.07 k/cumm (0.0-0.09); Absolute Basophil Count 0.07 k/cumm (0.0-0.2); Absolute Eosinophil Count 0.23 k/cumm (0.0-0.7); Absolute Lymphocyte Count 1.21 k/cumm (1.2-3.4); Absolute Monocyte Count 1.11 k/cumm (0.11-0.7); Absolute Neutrophil Count 6.09 k/cumm (1.2-6.7); Basophils % 0.8; Eosinophils % 2.6; HCT 47.6 % (40.0-50.0); HGB 15.3 g/dL (13.5-17.5); Immature Grans % 0.8; Lymphocytes % 13.8; Mean Corp. HGB Concentration 32.1 g/dL (32.0-36.0); Mean Corpuscular Volume 90.2 fL (80-95); Mean Platelet Volume 11.9 fL (8.0-11.0); Monocytes % 12.6; Neutrophils % 69.4; Platelet Count 260 x1000/uL (130-400); RBC 5.28 m/cumm (4.50-6.00); RBC Distribution Width 13.4 % (11.8-14.1); White Blood Cell Count 8.78 k/cumm (4.4-10.8)
[2018-12-06 20:43] LABS: Anion Gap 9.7 mmol/L (3-11); BUN 23 mg/dL (7-18); CO2 28.3 mmol/L (21.0-32.0); Calcium 9.1 mg/dL (8.5-10.1); Chloride 104 mmol/L (98-107); Estimated GFR 56.12 (mL/min/1.73m2); Glucose 95 mg/dL (70-100); Potassium 4.2 mmol/L (3.5-5.1); Sodium 142 mmol/L (136-145)
== END 2018-12-06 15:33 ==
LOC: NCHCN 15:13
PROVIDERS: PCP Physician Assistant Medical; Visit Provider Physician Assistant Medical
DX: I50.9 Heart failure, unspecified (principal)
CPT/HCPCS: 80048; 85025

== ENCOUNTER 2018-12-11 02:15 | Outpatient (CLI) | payer MEDICAID, SELFPAY ==
--- NOTE | 2018-12-29 10:26 | ZIOP_ITS ---
ZIO Patch Health And Wellness Director Note: This is a 2-week ZIO patch ordered for dizziness. ?The predominant rhythm was normal sinus with an average heart rate of 63 bpm (minimum 47?maximum 158). ?There were 8 episodes of supraventricular tachycardia with the longest episode lasting 10 seconds and a rate of 150 bpm. ?There were rare (less than 1%) isolated supraventricular ectopic beats ?There were 3 episodes of ventricular tachycardia with the longest episode lasting 18 beats at a rate of 139 bpm. ?There were rare isolated (less than 1%) ventricular ectopic beats. ?There were no episodes of atrial fibrillation, no pauses greater than 3 seconds and no high degree AV block. ?There were no patient triggered events. Date of service: 12/29/18 Time of Service: 10:27
== END 2018-12-11 02:35 ==
PROVIDERS: PCP Physician Assistant Medical; Visit Provider Physician Assistant Medical
DX: R42 Dizziness and giddiness (principal); I47.1 Supraventricular tachycardia; I49.3 Ventricular premature depolarization; I47.2 Ventricular tachycardia
CPT/HCPCS: 0296T

== ENCOUNTER 2019-01-05 11:14 | Outpatient (CLI) | payer MEDICAID, SELFPAY ==
--- NOTE | 2019-01-05 13:27 | DI.RAD_ITS ---
EXAM: XR CHEST 2V PA LATERAL INDICATION: COUGH R05. COMPARISON: XR CHEST 2V PA LATERAL from 08/01/2018 XR CHEST 2V PA LATERAL from 11/29/2018 TECHNIQUE: 2D digital imaging was performed. FINDINGS: Heart size is within normal limits and stable. Postsurgical changes of mitral valve replacement are again noted. The lungs are free of infiltrates. No effusions or pneumothoraces are present. IMPRESSION: No acute pulmonary process.
== END 2019-01-05 11:34 ==
PROVIDERS: PCP Physician Assistant Medical; Visit Provider Physician Assistant Medical
DX: R05 Cough (principal); Z95.2 Presence of prosthetic heart valve
CPT/HCPCS: 71046

== ENCOUNTER 2019-10-18 12:10 | Emergency (ER) | payer MEDICAID, SELFPAY ==
[2019-10-18] VITALS (40 sets, daily range): BP systolic 110–147; BP diastolic 51–87; PULSE 57–81; RESP 5–35; TEMP 37.2–37.5; O2SAT 85–98
--- NOTE | 2019-10-18 12:15 | RT.EKG_ITS ---
APPROVED REPORT Exam: Resting ECG Patient Location: E HR:57 bpm ECG Measurements Heart Rate 57 AXIS NM 172 P 73 QRSd 126 QRS 80 QT 518 T 109 QTc 507 Conclusion Sinus bradycardia...rate< 60 Nonspecific intraventricular conduction delay...QRSd >115mS, not LBBB/RBBB Prolonged QT interval...QTc >500mS
--- NOTE | 2019-10-18 12:30 | DI.CT_ITS ---
EXAM: CT CHEST PE CTA CLINICAL HISTORY: R/O acute disease, Pneumonia. TECHNIQUE: Imaging Protocol: Axial CT angiography was performed with multi-slice acquisition and mu lti-planar and/or 3D reconstructions. CONTRAST MATERIAL: Intravenous: Omnipaque 350 Contrast volume:structured data in ml COMPARISON: CT CT CHEST PE CTA from 11/29/2018 FINDINGS: CT angiography of the chest was performed with intravenous infusion of 100 cc of Omnipaque 350. Mitral valve prosthesis noted. Coronary artery calcifications noted. Cardiac size is mildly enlarge d. The lungs are clear. No pleural effusion. Tracheobronchial tree appears intact. No evidence of pulmonary embolic disease. Thoracic aorta is of normal, no thoracic aortic aneurysm or dissection, major branch vessels appear intact. No mediastinal or hilar adenopathy. Images obtained through the upper abdomen show unremarkable appearance of the visualized portions of the liver, spleen, pancreas, adrenals, and kidneys. IMPRESSION: Negative CT angiogram of the chest. No evidence of pulmonary embolic disease. RADIATION DOSE DELIVERED: 641.3mGy.cm Total DLP 641.3mGy.cm Total DLP DATA REPOSITORY: All CT scans at this facility are submitted to the National Radiology Data Registry (NRDR) Dose Index Registry (DIR) with the [employer] (A[employer]). RADIATION OPTIMIZATION: All CT scans at this facility use at least one of these dose optimization te chniques: automated exposure control; mA and/or kV adjustment per patient size (includes targeted exa ms where dose is matched to clinical indication); or iterative reconstruction.
--- NOTE | 2019-10-18 12:35 | W.ED.GENAD ---
Discharge Plan Disposition Patient Disposition: HOME Condition: Stable Discharge Details Chief Complaint: SOB Clinical Impression: Cough, Bronchitis Primary Care Provider: Es Clinton ED Provider: Sole Gutierrez Home Meds and New Rx's Prescriptions: New prednisone 20 mg tablet 60 mg PO DAILY 5 Days Qty: 15 RF: 0 azithromycin 250 mg tablet See Rx Instructions .ROUTE .COMPLEX Qty: 6 RF: 0 No Action atorvastatin [Lipitor] 40 MG tablet 40 mg PO HS RF: 0 aspirin [Aspir-81] 81 MG tablet,delayed release (DR/EC) 81 mg PO DAILY RF: 0 albuterol sulfate [ProAir HFA] 200 PUFF HFA aerosol inhaler 2 puff Inhalation Q4H PRN PRNQty: 1 RF: 0 tamsulosin 0.4 MG capsule 0.4 mg PO DAILY@0830 RF: 0 Eliquis 5 MG tablet 5 mg PO BID Qty: 60 RF: 0 metoprolol tartrate 50 mg Tablet 50 mg BID RF: 0 furosemide 20 mg Tablet 60 mg PO DAILY RF: 0 amiodarone 200 mg Tablet 100 mg PO BID RF: 0 hydrocortisone acetate 25 mg Suppository [address] DAILY PRNRF: 0 nitroglycerin 0.4 mg Tablet, Sublingual 0.4 mg SUBLINGUAL Q5-15M PRNRF: 0 docusate sodium [Colace] 100 mg Capsule 100 mg PO BID RF: 0 omeprazole magnesium [Prilosec OTC] 20 mg Tablet,Delayed Release (Dr/Ec) 20 mg PO DAILY RF: 0 bupropion HCl 300 mg Tablet Extended Release 24 Hr 300 mg PO DAILY RF: 0 Discharge Instructions Instructions: Acute Bronchitis (ED), Acute Cough (ED) Additional Instructions: Your CT of your chest today shows no evidence of pneumonia. This could be a bronchitis or a CHF exacerbation. Continue taking your medications as previously prescribed. Take the prednisone daily for the next 5 days. Follow up with primary care provider in 3-5 days. Return to ED sooner if any worsening or concerns. Increase oral fluids. Return for any worsening shortness of breath, cough, fever or any concerns. We did send a COVID-19 test which is pending at this time. Stand Alone Forms: PENDING COVID-19 TESTING Referrals: Es Clinton PA [Primary Care Provider] - Medical Decision Making At this time work-up ordered including CBC, CMP, BNP, serial troponins, EKG, chest CT and blood cultures x2. 125 Solu-Medrol IV ordered and DuoNeb at this time. He is afebrile at this time but is borderline 37.5 Celsius, O2 sat is 91% on room air. 1311: Spoke with patient's Jessica regarding patient condition and plan of care. Relayed that CT chest is pending at this time and will have a definitive answer skillfully with the next hour. She verbalized understanding. Exam(s) a CT:CT chest PE CTA EXAM: CT CHEST PE CTA COMPARISON: CT CT CHEST PE CTA from 11/29/2018 FINDINGS: CT angiography of the chest was performed with intravenous infusion of 100 cc of Omnipaque 350. Mitral valve prosthesis noted. Coronary artery calcifications noted. Cardiac size is mildly enlarged. The lungs are clear. No pleural effusion. Tracheobronchial tree appears intact. No evidence of pulmonary embolic disease. Thoracic aorta is of normal, no thoracic aortic aneurysm or dissection, major branch vessels appear intact. No mediastinal or hilar adenopathy. Images obtained through the upper abdomen show unremarkable appearance of the visualized portions of the liver, spleen, pancreas, adrenals, and kidneys. IMPRESSION: Negative CT angiogram of the chest. No evidence of pulmonary embolic disease. Upon review of patient's labs, W blood cell count is 11.49, neutrophils 9.36, lymphocytes 0.64, monocytes 1.15 1403: Patient is receiving a nebulizer at this time. He does still has congested cough. Discussed CT results with him, verbalized understanding. Will consult care management about getting patient a nebulizer machine to go home with. Discussed obtaining a nebulizer with [facility], they will supply order form. Respiratory therapist completed a road test. They state the patient does not qualify for oxygen at this time. O2 sat maintained approximately 90% on room air without an increase in heart rate or respiration rate. Patient states he feels better after nebulizer treatment. Plan is to discharge home with a 5 day stent of prednisone, Azithromycin and close follow up with PCP. Repeat troponin negative discussed discharge home and home care with patient, verbalized understanding. He is sitting up speaking in full sentences appears much more comfortable. HPI General Mode of arrival: ambulatory. Date/Time Provider Initiated Documentation: 10/18/19 12:15. Limitations to Documentation: no limitations. Information obtained by: patient. HPI Narrative: 63-year-old morbidly obese male presents to the ER chief complaint of cough and shortness of breath. She reports this is gotten worse in the last 4 days. Associated with productive cough with brown sputum, chills, and headache. He denies any sick contacts. He denies chest pain but does state that he has some heaviness associated with cough. He did use his albuterol hand-held inhaler prior to arrival times once. Did take his normal a.m. medications including 60 mg of Lasix. He does have a past medical history of acute [place], CHF, coronary artery disease, diverticulitis, hypertension, hyperlipidemia, obesity, mitral regurgitation, A. fib. Related Data Home Medications Medication Instructions Recorded Confirmed aspirin [Aspir-81] 81 mg PO DAILY tab-cap 05/24/12 10/18/19 atorvastatin [Lipitor] 40 mg PO HS 05/24/12 10/18/19 albuterol sulfate [ProAir HFA] 2 puff INHALATION Q4H PRN PRN #1 10/11/16 10/18/19 inh tamsulosin 0.4 mg PO DAILY@0830 07/21/17 10/18/19 Eliquis 5 mg PO BID #60 tab 07/23/17 10/18/19 furosemide 60 mg PO DAILY 08/01/18 10/18/19 metoprolol tartrate 50 mg BID 08/01/18 10/18/19 amiodarone 100 mg PO BID 08/02/18 10/18/19 docusate sodium [Colace] 100 mg PO BID 11/21/18 10/18/19 hydrocortisone acetate [address] DAILY PRN 11/21/18 10/18/19 nitroglycerin 0.4 mg SUBLINGUAL Q5-15M PRN 11/21/18 10/18/19 omeprazole magnesium [Prilosec OTC] 20 mg PO DAILY 11/21/18 11/29/18 bupropion HCl 300 mg PO DAILY 11/29/18 10/18/19 azithromycin See Rx Instructions .ROUTE 10/18/19 .COMPLEX #6 tab prednisone 60 mg PO DAILY 5 Days #15 tab 10/18/19 Previous Rx's Medication Instructions Recorded albuterol sulfate [ProAir HFA] 2 puff INHALATION Q4H PRN PRN #1 10/11/16 inh Eliquis 5 mg PO BID #60 tab 07/23/17 azithromycin See Rx Instructions .ROUTE 10/18/19 .COMPLEX #6 tab prednisone 60 mg PO DAILY 5 Days #15 tab 10/18/19 Allergies Allergy/AdvReac Type Severity Reaction Status Date / Time No Known Allergies Allergy Unverified 11/21/18 17:27 General Stated Complaint: SOB BILLIE: 2 Review of Systems Narrative: Constitutional: Negative for weight loss, alert and oriented, well groomed, normal body habitus, appears comfortable. HEENT: Denies trauma, headaches, blurry vision, nasal discharge, sore throat, trouble swallowing. Chest: Denies chest pain, palpitations, irregular rhythm, hypertension. Respiratory: Denies Shortness of breath, cough, hemoptysis. GI: Denies abdominal pain, nausea, vomiting, diarrhea, constipation. : Denies dysuria, hematuria, flank pain, rectal bleeding. Neuro: Denies dizziness, blurry vision, weakness, syncope, headache or facial numbness. Hematologic: Denies easy bruising, intolerance to heat or cold, hair loss. 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 -> EMERGENT ANGIOPLASTY = OCCLUDED RCA, 50% CIRCUMFLEX (EF 40%POST-[place]) ADENOMA COLON POLYP CAD Diverticulitis (~1989) EMERGENT COLECTOMY & TEMPORARY COLOSTOMY Essential hypertension Hyperlipidemia Obesity SKIN NEOPLASM Surgical History Angioplasty Appendectomy Arthroplasty of knee LEFT TORN ACL & MENISCUS COLECTOMY Colonoscopy - MAC (~2007) Colonoscopy - MAC (05/28/16) Colostomy (~1989) DIVERTICULITIS WITH EMERGENT COLECTOMY AND TEMPORARY COLOSTOMY. Family History Mother Personal history of malignant neoplasm COLON Father Heart disease Sister Personal history of malignant neoplasm Brother Heart disease Other Hearing loss Social History Smoking/Tobacco Use Status: Former Tobacco Use Alcohol Intake: current Alcohol Intake frequency: holidays/special occasions only Drug use: Never Substance use type: does not use Current gender identity: male Do you feel safe at home: Yes Do you feel safe in your relationship?: Yes Exam Narrative Exam Narrative: Constitutional: Alert and oriented x3. Appears stated age. Obese body habitus. Head: Normocephalic, no trauma. Eyes: Pupils PERRLA, Red reflex noted, EOM's intact. Eyelids symmetrical without lesions, discharge, or swelling. ENT: Bilateral TM's WNL, External ear normal to inspection, no mastoid TTP, swelling, or erythema, Nasal turbinates WNL, no nasal discharge. Normal dentition, Posterior pharynx WNL, no exudate. Chest: RRR, Normal S1, S2, distal pulses intact. Does have a midline vertical anterior chest healed scar. No pitting edema noted to his bilateral lower extremities. Resp: Lungs diminished with rhonchi bilaterally. Congested cough noted. Musculoskeletal: Normal gait, 5/5 strength to all four extremities. Skin: No suspicious rashes or lesions. Capillary refill less than 2 sec. Neurologic: Cranial nerves II-XII intact. Alert and oriented x 3. DTR's intact. Hematologic/Lymphatic: No ecchymosis, no lymphadenopathy. Course Vital Signs Vital signs: Vital Signs Temperature 37.5 C 10/18/19 12:18 Pulse 61 10/18/19 12:18 Respiratory Rate 24 10/18/19 12:18 Blood Pressure 139/78 10/18/19 12:18 Pulse Oximetry 91 L 10/18/19 12:18 Temperature 37.5 C 10/18/19 12:18 Temperature Source Oral 10/18/19 12:18 Pulse 61 10/18/19 12:18 Respiratory Rate 24 10/18/19 12:18 Respiratory Effort Nasal Flaring 10/18/19 12:22 Blood Pressure 139/78 10/18/19 12:18 Blood Pressure Position Supine 10/18/19 12:18 Pulse Oximetry 91 L 10/18/19 12:18 Oxygen Delivery Method Room Air 10/18/19 12:18 Oxygen Flow Rate 0 10/18/19 12:18 Pain Level 4 10/18/19 12:18 Lab/Test Results Lab/Test Results: 10/18/19 12:32 Blood Blood Culture - Pending 10/18/19 12:32 Blood Blood Culture - Pending
[2019-10-18 12:37] LABS: Abs Immature Grans 0.04 10^3/uL (0.0-0.06); Absolute Basophil Count 0.06 10^3/uL (0.0-0.2); Absolute Eosinophil Count 0.24 10^3/uL (0.0-0.7); Absolute Lymphocyte Count 0.64 10^3/uL (1.2-3.4); Absolute Monocyte Count 1.15 10^3/uL (0.1-0.8); Absolute Neutrophil Count 9.36 10^3/uL (1.2-6.7); Basophils % 0.5; Eosinophils % 2.1; HCT 46.4 % (40.0-50.0); HGB 15.4 g/dL (13.5-17.5); Immature Grans % 0.3; Lymphocytes % 5.6; MCH 29.6 pg (27.0-33.0); MCHC 33.2 % (32.0-36.0); MCV 89.2 fL (80-95); MPV 11.6 fL (8.0-11.0); Neutrophils % 81.5; Nucleated RBC 0 %; Platelet Count 158 10^3/uL (130-400); RDW 13.4 % (11.8-14.1); RDW-SD 43.5 fL; WBC 11.49 10^3/uL (4.4-10.8)
[2019-10-18 13:03] LABS: ALT 23 U/L (16-63); AST 14 U/L (15-37); Albumin 3.6 g/dL (3.4-5.0); Alkaline Phosphatase 96 U/L (46-116); Anion Gap 7.2 mmol/L (3-11); BUN 15 mg/dL (7-18); Bilirubin, Total 1.2 mg/dL (0.2-1.0); CO2 30.8 mmol/L (21.0-32.0); CREATININE 0.98 mg/dL (0.70-1.30); Calcium 8.6 mg/dL (8.5-10.1); Chloride 100 mmol/L (98-107); Glucose 108 mg/dL (74-106); Magnesium 1.9 mg/dL (1.8-2.4); NT-proBNP 837 pg/mL (<300); Potassium 3.6 mmol/L (3.5-5.1); Sodium 138 mmol/L (136-145); Total Protein 7.6 g/dL (6.4-8.2)
[2019-10-18 13:04] LABS: Troponin I < 0.05 ng/mL (<0.06)
[2019-10-18] MEDS: Normal Saline - Diluent 50 ML VIAL IV (13:20)
[2019-10-18] MEDS: Omnipaque 350 MG/ML 100 ML BTL IJ (13:20)
[2019-10-18] MEDS: methylPREDNISolone SUCC 125 MG VIAL IVP (13:25)
[2019-10-18] MEDS: Albuterol/Ipratropium 3 ML UPD VIAL UPD (13:49)
[2019-10-18] MEDS: Normal Saline Flush 10 ML SYR IVP (13:49)
[2019-10-18 16:03] LABS: Troponin I < 0.05 ng/mL (<0.06)
[2019-10-19 01:32] LABS: COVID-19 RT-PCR UVMMC Result Negative (Negative)
== END 2019-10-18 16:25 | disposition home or self-care (01) ==
PROVIDERS: Emergency Provider Registered Nurse Emergency; PCP Physician Assistant Medical
DX: J44.0 Chronic obstructive pulmonary disease with (acute) lower respiratory infection (principal); J20.9 Acute bronchitis, unspecified; I10 Essential (primary) hypertension; Z03.818 Encounter for observation for suspected exposure to other biological agents ruled out; Z87.891 Personal history of nicotine dependence
CPT/HCPCS: 36415; 71275; 80053; 87040; 93005; 94640; 96374; 99285; U0003; 83735; 83880; 84484; 85025; 93010; J2930; J3490; J7620

== ENCOUNTER 2019-10-26 18:58 | Outpatient (REF) | payer MEDICAID, SELFPAY ==
[2019-10-26 19:09] LABS: HCT 49.3 % (40.0-50.0); HGB 15.9 g/dL (13.5-17.5); MCH 29.3 pg (27.0-33.0); MCHC 32.3 % (32.0-36.0); MPV 11.7 fL (8.0-11.0); Nucleated RBC 0 %; Platelet Count 200 10^3/uL (130-400); RBC 5.42 10^6/uL (4.36-5.78); RDW 13.5 % (11.8-14.1); WBC 10.71 10^3/uL (4.4-10.8)
[2019-10-26 19:56] LABS: Anion Gap 6.4 mmol/L (3-11); BUN 26 mg/dL (7-18); CO2 31.6 mmol/L (21.0-32.0); CREATININE 1.52 mg/dL (0.70-1.30); Calcium 8.5 mg/dL (8.5-10.1); Chloride 100 mmol/L (98-107); Estimated GFR 46.86 (mL/min/1.73m2); Glucose 87 mg/dL (74-106); Potassium 4.2 mmol/L (3.5-5.1); Sodium 138 mmol/L (136-145)
[2019-10-26 20:19] LABS: Absolute Eosinophil Count 0.21 10^3/uL (0.0-0.7); Absolute Lymphocyte Count 2.57 10^3/uL (1.2-3.4); Absolute Monocyte Count 1.29 10^3/uL (0.1-0.8); Absolute Neutrophil Count 6.43 10^3/uL (1.2-6.7); Bands % 1; Myelocytes % 1
[2019-10-26 20:21] LABS: Absolute Basophil Count 0.11 10^3/uL (0.0-0.2); Diff Comment Manual Differential; RBC Morphology Normal
== END 2019-10-26 19:18 ==
LOC: NCHCN 18:58
PROVIDERS: PCP Physician Assistant Medical; Visit Provider Physician Assistant Medical
DX: I50.9 Heart failure, unspecified (principal)
CPT/HCPCS: 80048; 85025

== ENCOUNTER 2020-01-29 13:55 | Outpatient (REF) | payer MEDICAID, SELFPAY ==
[2020-01-29 19:50] LABS: Abs Immature Grans 0.09 10^3/uL (0.0-0.06); Absolute Basophil Count 0.07 10^3/uL (0.0-0.2); Absolute Eosinophil Count 0.03 10^3/uL (0.0-0.7); Absolute Lymphocyte Count 0.89 10^3/uL (1.2-3.4); Absolute Monocyte Count 1.65 10^3/uL (0.1-0.8); Absolute Neutrophil Count 8.52 10^3/uL (1.2-6.7); Basophils % 0.6; Eosinophils % 0.3; HGB 15.1 g/dL (13.5-17.5); Immature Grans % 0.8; Lymphocytes % 7.9; MCH 29.7 pg (27.0-33.0); MCHC 32.8 % (32.0-36.0); MCV 90.6 fL (80-95); MPV 11.9 fL (8.0-11.0); Monocytes % 14.7; Neutrophils % 75.7; Nucleated RBC 0 %; Platelet Count 139 10^3/uL (130-400); RBC 5.08 10^6/uL (4.36-5.78); RDW-SD 42.6 fL; WBC 11.25 10^3/uL (4.4-10.8)
[2020-01-29 19:53] LABS: Anion Gap 9.3 mmol/L (3-11); BUN 19 mg/dL (7-18); CO2 26.7 mmol/L (21.0-32.0); CREATININE 1.26 mg/dL (0.70-1.30); Calcium 8.5 mg/dL (8.5-10.1); Chloride 100 mmol/L (98-107); Estimated GFR 57.99 (mL/min/1.73m2); Glucose 129 mg/dL (74-106); NT-proBNP 1870 pg/mL (<300); Potassium 4.1 mmol/L (3.5-5.1); Sodium 136 mmol/L (136-145)
[2020-01-29 20:03] LABS: Bacteria Negative HPF (Negative); C & S Indicated? C&S Done As Ordered; Casts 5-10 Hyaline LPF (Negative); Crystals Negative HPF (Negative); Epithelial Cells Negative HPF (Negative); Mucus Trace (Negative); RBC Negative HPF (0-2); WBC Negative HPF (0-5)
[2020-01-29 20:23] LABS: Diff Comment Agrees w/ Instrument; RBC Morphology Normal
[2020-01-31 19:20] LABS: COVID-19 RT-PCR UVMMC Result Negative (Negative)
== END 2020-01-29 14:15 ==
LOC: NCHCN 13:55
PROVIDERS: PCP Physician Assistant Medical; Visit Provider Nurse Practitioner Family
DX: R06.02 Shortness of breath (principal); R53.83 Other fatigue; R50.9 Fever, unspecified; R11.0 Nausea; R35.0 Frequency of micturition
CPT/HCPCS: 80048; 84153; U0003; 81015; 83880; 85025; 87086

== ENCOUNTER 2020-02-06 19:19 | Outpatient (REF) | payer MEDICAID, SELFPAY ==
[2020-02-06 20:36] LABS: Anion Gap 5.8 mmol/L (3-11); BUN 32 mg/dL (7-18); CO2 33.2 mmol/L (21.0-32.0); CREATININE 1.56 mg/dL (0.70-1.30); Calcium 9.2 mg/dL (8.5-10.1); Chloride 96 mmol/L (98-107); Estimated GFR 45.32 (mL/min/1.73m2); Glucose 128 mg/dL (74-106); Potassium 3.4 mmol/L (3.5-5.1); Sodium 135 mmol/L (136-145)
== END 2020-02-06 19:39 ==
LOC: NCHCN 19:19
PROVIDERS: PCP Physician Assistant Medical; Visit Provider Nurse Practitioner Family
DX: I50.9 Heart failure, unspecified (principal)
CPT/HCPCS: 80048; 83735

== ENCOUNTER 2020-03-04 14:29 | Outpatient (REF) | payer MEDICAID, SELFPAY ==
[2020-03-04 15:27] LABS: Hemoglobin A1C 5.8 % (<5.7)
[2020-03-04 15:29] LABS: ALT 50 U/L (16-63); AST 26 U/L (15-37); Albumin 3.6 g/dL (3.4-5.0); Alkaline Phosphatase 93 U/L (46-116); Anion Gap 8.7 mmol/L (3-11); BUN 29 mg/dL (7-18); Bilirubin, Total 0.8 mg/dL (0.2-1.0); CO2 33.3 mmol/L (21.0-32.0); CREATININE 1.24 mg/dL (0.70-1.30); Calcium 8.4 mg/dL (8.5-10.1); Calculated LDL 108 mg/dL (<100); Chloride 99 mmol/L (98-107); Cholesterol 189 mg/dL (<200); Estimated GFR 59.07 (mL/min/1.73m2); Glucose 112 mg/dL (74-106); HDL Cholesterol 52 mg/dL (40-60); Sodium 141 mmol/L (136-145); Triglyceride 148 mg/dL (<150)
[2020-03-04 15:47] LABS: NT-proBNP 246 pg/mL (<300)
== END 2020-03-04 14:49 ==
LOC: NCHCN 14:29
PROVIDERS: PCP Physician Assistant Medical; Visit Provider Physician Assistant Medical
DX: I50.9 Heart failure, unspecified (principal); I10 Essential (primary) hypertension; E78.5 Hyperlipidemia, unspecified
CPT/HCPCS: 80053; 80061; 83036; 83880

== ENCOUNTER 2020-03-21 15:14 | Outpatient (REF) | payer MEDICAID, SELFPAY ==
[2020-03-21 14:59] LABS: Anion Gap 3.9 mmol/L (3-11); BUN 21 mg/dL (7-18); CO2 34.1 mmol/L (21.0-32.0); CREATININE 1.5 mg/dL (0.70-1.30); Calcium 8.8 mg/dL (8.5-10.1); Chloride 102 mmol/L (98-107); Estimated GFR 47.42 (mL/min/1.73m2); Glucose 121 mg/dL (74-106); Potassium 3.4 mmol/L (3.5-5.1); Sodium 140 mmol/L (136-145)
== END 2020-03-21 15:34 ==
LOC: NCHCN 15:14
PROVIDERS: PCP Physician Assistant Medical; Visit Provider Physician Assistant Medical
DX: I50.9 Heart failure, unspecified (principal)
CPT/HCPCS: 80048

== ENCOUNTER 2020-06-27 16:39 | Outpatient (REF) | payer MEDICAID, SELFPAY ==
[2020-06-27 15:39] LABS: Anion Gap 6.7 mmol/L (3-11); BUN 20 mg/dL (7-18); CO2 31.3 mmol/L (21.0-32.0); CREATININE 1.1 mg/dL (0.70-1.30); Calcium 8.6 mg/dL (8.5-10.1); Chloride 107 mmol/L (98-107); Glucose 102 mg/dL (74-106); Potassium 4.4 mmol/L (3.5-5.1); Sodium 145 mmol/L (136-145)
== END 2020-06-27 16:40 | disposition home or self-care (01) ==
LOC: NCHCN 16:39
PROVIDERS: PCP Physician Assistant Medical; Visit Provider Physician Assistant Medical
DX: I50.9 Heart failure, unspecified (principal)
CPT/HCPCS: 80048

== ENCOUNTER 2020-11-28 09:48 | Emergency (ER) | payer MEDICAID, SELFPAY ==
[2020-11-28] VITALS (33 sets, daily range): BP systolic 85–114; BP diastolic 52–80; PULSE 52–60; RESP 14–29; TEMP 36.3–36.6; O2SAT 90–96
--- NOTE | 2020-11-28 09:59 | RT.EKG_ITS ---
APPROVED REPORT Exam: Resting ECG Reason for Exam: sob, covid +, chest heaviness Patient Location: E HR:61 bpm ECG Measurements Heart Rate 61 AXIS KS 178 P 50 QRSd 120 QRS 73 QT 492 T 80 QTc 495 Conclusion Sinus rhythm...normal P axis, V-rate 60- 99 Nonspecific intraventricular conduction delay. Inferior infarct, old...Q >35mS, II III aVF
--- NOTE | 2020-11-28 10:00 | DI.RAD_ITS ---
Exam(s) XR PORTABLE CHEST AP EXAM: XR PORTABLE CHEST AP CLINICAL HISTORY: covid, sob TECHNIQUE: COMPARISON: CR XR CHEST 2V PA LATERAL from 01/05/2019 FINDINGS: Portable AP views of the chest were obtained. There is suboptimal inspiration causing some crowding is a pulmonary markings. No gross consolidation seen. Moderate cardiomegaly noted. There are media stinal vascular clips and an apparent mitral valve prosthesis. No gross pleural effusion on this frontal film. IMPRESSION: No evidence of acute process. Note is made of cardiomegaly. RADIATION DOSE DELIVERED: Total DLP
--- NOTE | 2020-11-28 10:18 | ED.GENADUL_ITS ---
Discharge Plan Disposition Patient Disposition: HOME Condition: Stable Discharge Details Clinical Impression: COVID-19 Primary Care Provider: Es Clinton ED Provider: Rick Lopez Home Meds and New Rx's Prescriptions: Continued atorvastatin [Lipitor] 40 MG tablet 40 mg PO HS RF: 0 aspirin [Aspir-81] 81 MG tablet,delayed release (DR/EC) 81 mg PO DAILY RF: 0 albuterol sulfate [ProAir HFA] 200 PUFF HFA aerosol inhaler 2 puff Inhalation Q4H PRN PRNQty: 1 RF: 0 tamsulosin 0.4 MG capsule 0.4 mg PO DAILY@0830 RF: 0 Eliquis 5 MG tablet 5 mg PO BID Qty: 60 RF: 0 metoprolol tartrate 50 mg Tablet 50 mg PO BID RF: 0 furosemide 20 mg Tablet 60 mg PO DAILY RF: 0 amiodarone 200 mg Tablet 100 mg PO DAILY RF: 0 hydrocortisone acetate 25 mg Suppository 25 mg SC DAILY PRNRF: 0 nitroglycerin 0.4 mg Tablet, Sublingual 0.4 mg SUBLINGUAL Q5-15M PRNRF: 0 omeprazole magnesium [Prilosec OTC] 20 mg Tablet,Delayed Release (Dr/Ec) 20 mg PO DAILY RF: 0 metolazone 2.5 mg tablet 2.5 mg PO DAILY PRNRF: 0 bupropion HCl 150 mg tablet sustained-release 12 hr 150 mg PO DAILY RF: 0 potassium chloride 20 mEq tablet,ER particles/crystals 20 meq PO DAILY RF: 0 Discharge Instructions Instructions: COVID-19 (Coronavirus Disease 2019) (ED), Droplet Precautions (ED) Additional Instructions: You received a monoclonal antibody infusion today to help attenuate the severity and length of your illness. I recommend you begin vitamin D3 2000 international units daily, vitamin C 1 g twice per day, and zinc 220 mg daily. You may continue to check your oxygen at home. The extremity should be warm prior to measurement and reading should be observed for 30 to 60 seconds to identify the most common measured value. If your oxygen is below 90% at rest on two separate readings or you develop increasing shortness of breath, repeat emergent medical attention is warranted. Medical Decision Making 65-year-old male presents from home. Patient has had full immunization against Covid. He had a Covid exposure and subsequently had a positive Covid test associated with a cough beginning on Tuesday. Now with body ache, general malaise and weakness, shortness of breath at home today. Patient arrives to the ER with a room air sat of 93%, blood pressure 85/57, afebrile. Patient IV access established, given small fluid bolus. Blood pressure normalized to approximately 100/60. Most consistent with COVID-19, mild. Chest x-ray is without focal infiltrates. Patient's laboratories are reassuring including a white count of eight, hematocrit 46, platelets one seven. Lactate 9.0. Chemistries reassuring, troponin negative, BNP is approximately at the patient's baseline at 1300. Given the patient's age, risk factors, I consented him for the use of monoclonal antibody to which he agreed. He received single infusion in the emergency department. HPI General Mode of arrival: ambulatory . Date/Time Provider Initiated Documentation: 11/28/20 09:49 . Limitations to Documentation: no limitations . Information obtained by: patient . History of Present Illness 65 year old M presents to the emergency department with the chief complaint of Positive Covid, short of breath, described as moderate, Quality is described as dull, and is localized to the chest. Patient reports no radiation. Patient started experiencing this hour(s) and it has been intermittent. Rest improves symptom(s), Movement worsens symptoms . Patient notes cough, fever/chills, shortness of breath and weakness; denies chest pain and syncope. Patient did receive the following treatments prior to arrival, none Related Data Home Medications Medication Instructions Recorded Confirmed aspirin [Aspir-81] 81 mg PO DAILY tab-cap 05/24/12 11/28/20 atorvastatin [Lipitor] 40 mg PO HS 05/24/12 11/28/20 albuterol sulfate [ProAir HFA] 2 puff INHALATION Q4H PRN PRN #1 10/11/16 11/28/20 inh tamsulosin 0.4 mg PO DAILY@0830 07/21/17 11/28/20 Eliquis 5 mg PO BID #60 tab 07/23/17 11/28/20 furosemide 60 mg PO DAILY 08/01/18 11/28/20 metoprolol tartrate 50 mg PO BID 08/01/18 11/28/20 amiodarone 100 mg PO DAILY 08/02/18 11/28/20 hydrocortisone acetate 25 mg SC DAILY PRN 11/21/18 11/28/20 nitroglycerin 0.4 mg SUBLINGUAL Q5-15M PRN 11/21/18 11/28/20 omeprazole magnesium [Prilosec OTC] 20 mg PO DAILY 11/21/18 11/28/20 bupropion HCl 150 mg PO DAILY 11/28/20 11/28/20 metolazone 2.5 mg PO DAILY PRN 11/28/20 11/28/20 potassium chloride 20 meq PO DAILY 11/28/20 11/28/20 Previous Rx's Medication Instructions Recorded albuterol sulfate [ProAir HFA] 2 puff INHALATION Q4H PRN PRN #1 10/11/16 inh Eliquis 5 mg PO BID #60 tab 07/23/17 Allergies Allergy/AdvReac Type Severity Reaction Status Date / Time No Known Allergies Allergy Unverified 11/21/18 17:27 General Stated Complaint: SOB BILLIE: 2 Review of Systems Narrative: No CP, no vomiting, weakness but no syncope. Positive Covid on Tuesday, cough, body ache, joint ache for 3 days. 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 -> EMERGENT ANGIOPLASTY = OCCLUDED RCA, 50% CIRCUMFLEX (EF 40%POST-[place]) ADENOMA COLON POLYP CAD Diverticulitis (~1989) EMERGENT COLECTOMY & TEMPORARY COLOSTOMY Essential hypertension Hyperlipidemia Obesity SKIN NEOPLASM Surgical History Angioplasty Appendectomy Arthroplasty of knee LEFT TORN ACL & MENISCUS COLECTOMY Colonoscopy - MAC (~2007) Colonoscopy - MAC (05/28/16) Colostomy (~1989) DIVERTICULITIS WITH EMERGENT COLECTOMY AND TEMPORARY COLOSTOMY. Family History Mother Personal history of malignant neoplasm COLON Father Heart disease Sister Personal history of malignant neoplasm Brother Heart disease Other Hearing loss Social History Smoking/Tobacco Use Status: Former Tobacco Use Smoking risk assessment performed?: Yes Alcohol Intake: current Alcohol Intake frequency: holidays/special occasions only Drug use: Never Substance use type: does not use Current gender identity: male Do you feel safe at home: Yes Do you feel safe in your relationship?: Yes Exam Narrative Exam Narrative: GEN: awake, alert, oriented 3. Pleasant, well groomed, interactive. HEAD: Normocephalic, atraumatic ENT: Mucous membranes dry, oropharynx unremarkable, External ear exam unremarkable EYES: PERRL, EOMI NECK: Full ROM, no JANIE, no menigismus CHEST/RESP: Nontender, clear to auscultation but distant CARDIOVASCULAR: RRR, no murmur, rub martha. 2+ Rad pulse bilateral ABDOMEN: Soft, nontender, no mass. +Bowel sounds EXT: Full ROM, no edema, no rash Neuro: Grossly normal neurologic exam, conversant, interactive. Psych: Speech fluent, thoughts congruent, affect normal social program the Course Vital Signs Vital signs: Vital Signs Temperature 36.4 C L 11/28/20 09:59 Pulse 57 L 11/28/20 09:59 Respiratory Rate 29 H 11/28/20 09:59 Blood Pressure 85/57 L 11/28/20 09:59 Pulse Oximetry 94 11/28/20 09:59 Temperature 36.4 C L 11/28/20 09:59 Temperature Source Skin 11/28/20 09:59 Pulse 57 L 11/28/20 09:59 Respiratory Rate 29 H 11/28/20 09:59 Blood Pressure 85/57 L 11/28/20 09:59 Blood Pressure Position Supine 11/28/20 09:59 Pulse Oximetry 94 11/28/20 09:59 Oxygen Delivery Method Room Air 11/28/20 09:59 Oxygen Flow Rate 0 11/28/20 09:59 Pain Level 6 11/28/20 09:59
[2020-11-28] MEDS: Normal Saline 1,000 ML 1000 ML IV (10:26)
[2020-11-28] MEDS: ACETAMINOPHEN 1,000 MG/100 ML BTL 400 MG IVPB (10:26)
[2020-11-28 10:31] LABS: Abs Immature Grans 0.13 10^3/uL (0.0-0.06); Absolute Basophil Count 0.03 10^3/uL (0.0-0.2); Absolute Eosinophil Count 0.13 10^3/uL (0.0-0.7); Absolute Lymphocyte Count 0.78 10^3/uL (1.2-3.4); Absolute Monocyte Count 1.28 10^3/uL (0.1-0.8); Absolute Neutrophil Count 5.84 10^3/uL (1.2-6.7); Basophils % 0.4; Eosinophils % 1.6; HCT 46.4 % (40.0-50.0); HGB 15.2 g/dL (13.5-17.5); Immature Grans % 1.6; Lymphocytes % 9.5; MCH 29.7 pg (27.0-33.0); MCHC 32.8 % (32.0-36.0); MCV 90.6 fL (80-95); MPV 11.1 fL (8.0-11.0); Monocytes % 15.6; Neutrophils % 71.3; Nucleated RBC 0 %; Platelet Count 157 10^3/uL (130-400); RBC 5.12 10^6/uL (4.36-5.78); RDW 14.4 % (11.8-14.1); RDW-SD 48.4 fL; WBC 8.19 10^3/uL (4.4-10.8)
[2020-11-28 10:54] LABS: ALT 59 U/L (16-63); AST 35 U/L (15-37); Alkaline Phosphatase 105 U/L (46-116); Anion Gap 4.9 mmol/L (3-11); BUN 19 mg/dL (7-18); Bilirubin, Total 1.3 mg/dL (0.2-1.0); CO2 30.1 mmol/L (21.0-32.0); CREATININE 1.1 mg/dL (0.70-1.30); Calcium 8.5 mg/dL (8.5-10.1); Chloride 101 mmol/L (98-107); Glucose 107 mg/dL (74-106); Potassium 3.7 mmol/L (3.5-5.1); Sodium 136 mmol/L (136-145)
[2020-11-28 10:55] LABS: Troponin I < 0.05 ng/mL (<0.06)
[2020-11-28 11:13] LABS: NT-proBNP 1318 pg/mL (<300)
[2020-11-28 11:37] LABS: Procalcitonin 0.1 ng/mL
== END 2020-11-28 13:55 | disposition home or self-care (01) ==
PROVIDERS: Emergency Provider Emergency Medicine; PCP Physician Assistant Medical
DX: U07.1 COVID-19 (principal); R06.02 Shortness of breath
CPT/HCPCS: 36415; 80053; 84145; 93005; 96361; 96365; 99284; 71045; 83605; 83880; 84484; 85025; 93010; J0131

== ENCOUNTER 2020-12-15 08:29 | Outpatient (REF) | payer MEDICAID, SELFPAY ==
[2020-12-15 15:08] LABS: Abs Immature Grans 0.18 10^3/uL (0.0-0.06); Absolute Eosinophil Count 0.16 10^3/uL (0.0-0.7); Absolute Lymphocyte Count 1.54 10^3/uL (1.2-3.4); Absolute Monocyte Count 1.06 10^3/uL (0.1-0.8); Absolute Neutrophil Count 4.63 10^3/uL (1.2-6.7); Basophils % 1.3; Eosinophils % 2.1; HCT 45.7 % (40.0-50.0); HGB 14.6 g/dL (13.5-17.5); Immature Grans % 2.3; Lymphocytes % 20.1; MCH 29.5 pg (27.0-33.0); MCHC 31.9 % (32.0-36.0); MCV 92.3 fL (80-95); MPV 12.3 fL (8.0-11.0); Monocytes % 13.8; Neutrophils % 60.4; Nucleated RBC 0 %; Platelet Count 196 10^3/uL (130-400); RBC 4.95 10^6/uL (4.36-5.78); RDW-SD 50.2 fL; WBC 7.67 10^3/uL (4.4-10.8)
[2020-12-15 15:35] LABS: ALT 74 U/L (16-63); AST 36 U/L (15-37); Albumin 3.5 g/dL (3.4-5.0); Alkaline Phosphatase 114 U/L (46-116); BUN 20 mg/dL (7-18); Bilirubin, Total 0.6 mg/dL (0.2-1.0); CREATININE 1.2 mg/dL (0.70-1.30); Calcium 8.5 mg/dL (8.5-10.1); Chloride 106 mmol/L (98-107); Glucose 120 mg/dL (74-106); Potassium 4.4 mmol/L (3.5-5.1); Sodium 144 mmol/L (136-145); Total Protein 6.8 g/dL (6.4-8.2)
[2020-12-15 15:39] LABS: Hemoglobin A1C 6.2 % (<5.7)
== END 2020-12-15 08:30 | disposition home or self-care (01) ==
LOC: NCHCN 08:29
PROVIDERS: PCP Physician Assistant Medical; Visit Provider Physician Assistant Medical
DX: R73.03 Prediabetes (principal); U07.1 COVID-19
CPT/HCPCS: 80053; 83036; 85025

== ENCOUNTER 2021-01-16 09:26 | Inpatient (IN) | payer MEDICAID, SELFPAY ==
[2021-01-16] VITALS (46 sets, daily range): BP systolic 109–151; BP diastolic 50–106; PULSE 53–91; RESP 4–27; TEMP 36.4–37.1; O2SAT 88–99
--- NOTE | 2021-01-16 09:30 | RT.EKG_ITS ---
APPROVED REPORT Exam: Resting ECG Reason for Exam: sob Patient Location: E HR:54 bpm ECG Measurements Heart Rate 54 AXIS MD 190 P 45 QRSd 134 QRS 71 QT 572 T 63 QTc 544 Conclusion Sinus bradycardia...rate< 60 Nonspecific intraventricular conduction delay...QRSd >115mS, not LBBB/RBBB Inferior infarct, old...Q >35mS, II III aVF Prolonged QT interval...QTc >500mS
[2021-01-16 10:12] LABS: Abs Immature Grans 0.11 10^3/uL (0.0-0.06); Absolute Basophil Count 0.05 10^3/uL (0.0-0.2); Absolute Eosinophil Count 0.36 10^3/uL (0.0-0.7); Absolute Lymphocyte Count 1.29 10^3/uL (1.2-3.4); Absolute Monocyte Count 1.23 10^3/uL (0.1-0.8); Absolute Neutrophil Count 3.81 10^3/uL (1.2-6.7); Basophils % 0.7; Eosinophils % 5.3; HCT 46.9 % (40.0-50.0); HGB 15.6 g/dL (13.5-17.5); Immature Grans % 1.6; Lymphocytes % 18.8; MCH 30.4 pg (27.0-33.0); MCHC 33.3 % (32.0-36.0); MCV 91.2 fL (80-95); MPV 11.7 fL (8.0-11.0); Neutrophils % 55.6; Nucleated RBC 0 %; Platelet Count 169 10^3/uL (130-400); RBC 5.14 10^6/uL (4.36-5.78); RDW 14.2 % (11.8-14.1); RDW-SD 48.1 fL; WBC 6.85 10^3/uL (4.4-10.8)
--- NOTE | 2021-01-16 10:14 | W.ED.GENAD ---
Discharge Plan Disposition Patient Disposition: [facility] INPATIENT Condition: Good Discharge Details Clinical Impression: Acute exacerbation of CHF (congestive heart failure) Admit Date/Time: 01/18/21 09:44 Admit Provider: Luis Moreno Attending Provider: Luis Moreno Primary Care Provider: Es Clinton ED Provider: Michael Viveros Discharge Data Discharge Date/Time-TO BE ENTERED AT DEPARTURE: 01/16/21 13:19 Medical Decision Making 1030 -- 65yo m with multiple local problems including history of hypertension, hyperlipidemia, morbid obesity, coronary artery disease, CHF with left ventricular systolic dysfunction, here with increasing shortness of breath over the past week, dyspnea on exertion, also with productive cough. Patient is afebrile. Patient notes he typically saturating in the mid 90s. He is currently saturating low 90s here and desaturates significantly with any exertion. Concern for acute CHF exacerbation. Plan to treat with supplemental oxygen, Lasix 20 mg IV. Consider COPD. I will treat with single dose of DuoNeb and reassess wheeze. Consider pneumonia. Patient did have Covid in November and was treated with monoclonal antibody and had notable improvement. I do not believe his current presentation represents ongoing Covid disease. 1152 --chest x-ray interpreted by radiology: Consistent with CHF. Labs reviewed and no leukocytosis. Initial troponin negative. BNP is interestingly negative. Potassium low at 2.9. I will give potassium chloride 20 mEq IV. Patient reassessed after neb treatment and wheeze improved. Suspect CHF exacerbation with possible COPD. Plan to admit for further stabilization and treatment. I spoke with Tiffanie Page, discussed ED presentation and course. He will admit patient. HPI General Mode of arrival: ambulatory. Date/Time Provider Initiated Documentation: 01/16/21 09:52. Limitations to Documentation: no limitations. Information obtained by: patient. HPI Narrative: 65-year-old male with multiple medical problems including history of hypertension, hyperlipidemia, morbid obesity, coronary artery disease, CHF, smoking history, here with chief complaint of shortness of breath. Patient notes shortness of breath that is worse with exertion over the past 5 days. He has associated productive cough. No associated fever. Denies chest pain. He notes mild increased leg swelling. He has been taking Lasix as prescribed. He is also prescribed metolazone prn and took a dose of this yesterday. Patient is concerned that he may have pneumonia. Patient was diagnosed with Covid month and a half ago and was treated with monoclonal antibody and had improved. Related Data Home Medications Medication Instructions Recorded Confirmed aspirin [Aspir-81] 81 mg PO DAILY tab-cap 05/24/12 01/16/21 albuterol sulfate [ProAir HFA] 2 puff INHALATION Q4H PRN PRN #1 10/11/16 01/16/21 inh tamsulosin 0.4 mg PO DAILY@0830 07/21/17 01/16/21 Eliquis 5 mg PO BID #60 tab 07/23/17 01/16/21 metoprolol tartrate 50 mg PO BID 08/01/18 01/16/21 amiodarone 100 mg PO DAILY 08/02/18 01/16/21 nitroglycerin 0.4 mg SUBLINGUAL Q5-15M PRN 11/21/18 01/16/21 omeprazole magnesium [Prilosec OTC] 20 mg PO DAILY 11/21/18 01/16/21 bupropion HCl 150 mg PO DAILY 11/28/20 01/16/21 potassium chloride 20 meq PO DAILY 11/28/20 01/16/21 empagliflozin 10 mg PO DAILY #30 tab 01/24/21 rosuvastatin [Crestor] 20 mg PO DAILY #30 tab 01/24/21 torsemide 20 mg PO BID #60 tab 01/24/21 valsartan 20 mg PO BID #30 tab 01/24/21 Previous Rx's Medication Instructions Recorded albuterol sulfate [ProAir HFA] 2 puff INHALATION Q4H PRN PRN #1 10/11/16 inh Eliquis 5 mg PO BID #60 tab 07/23/17 empagliflozin 10 mg PO DAILY #30 tab 01/24/21 rosuvastatin [Crestor] 20 mg PO DAILY #30 tab 01/24/21 torsemide 20 mg PO BID #60 tab 01/24/21 valsartan 20 mg PO BID #30 tab 01/24/21 Allergies Allergy/AdvReac Type Severity Reaction Status Date / Time No Known Allergies Allergy Unverified 11/21/18 17:27 General Stated Complaint: SOB BILLIE: 2 Review of Systems All systems reviewed & are unremarkable except as noted in HPI and below Constitutional Constitutional: Denies fever(s) Respiratory Respiratory: Reports as per HPI [facility] Active Problem List (Updated 01/23/21 @ 18:47 by Erick Sibley) Prerenal azotemia (Acute) Acute bronchitis (Acute) Discharge planning issues (Acute) History of mitral valve repair (Chronic) Paroxysmal A-fib (Acute) COVID-19 (Acute) Acute exacerbation of CHF (congestive heart failure) (Acute) Congestive heart failure with left ventricular systolic dysfunction (Acute) Chest pain (Acute) Mitral regurgitation (Acute) Obstructive sleep apnea (Chronic) Hyperlipidemia (Chronic) Hypertension (Chronic) Morbid obesity (Chronic) CAD (coronary artery disease) (Chronic) H/O adenomatous polyp of colon (Chronic) Pancolonic diverticulosis (Chronic) H/O surgical procedure (Chronic) Atrial fibrillation with rapid ventricular response (Acute) Ischemic cardiomyopathy (Acute) Medical History (Updated 01/23/21 @ 18:47 by Erick Sibley) 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 -> EMERGENT ANGIOPLASTY = OCCLUDED RCA, 50% CIRCUMFLEX (EF 40%POST-MA) ADENOMA COLON POLYP CAD Diverticulitis (~1989) EMERGENT COLECTOMY & TEMPORARY COLOSTOMY Essential hypertension Hyperlipidemia Obesity SKIN NEOPLASM Surgical History (Updated 01/20/21 @ 07:40 by Tanseem Sher) Angioplasty Appendectomy Arthroplasty of knee LEFT TORN ACL & MENISCUS COLECTOMY Colonoscopy - MAC (~2007) Colonoscopy - MAC (05/28/16) Colostomy (~1989) DIVERTICULITIS WITH EMERGENT COLECTOMY AND TEMPORARY COLOSTOMY. Family History Mother Personal history of malignant neoplasm COLON Father Heart disease Sister Personal history of malignant neoplasm Brother Heart disease Other Hearing loss Social History Smoking/Tobacco Use Status: Former Tobacco Use Smoking risk assessment performed?: Yes Alcohol Intake: current Alcohol Intake frequency: holidays/special occasions only Drug use: Never Substance use type: does not use Details: quit smoking 20+ years ago Current gender identity: male Do you feel safe at home: Yes Do you feel safe in your relationship?: Yes Exam Const General: cooperative and well developed Orientation: alert and awake HENMT Mouth: moist mucous membranes Eyes Conjunctivae: normal conjunctivae Sclera: normal sclerae Neck Neck: trachea midline and supple Resp Auscultation: no rales, no rhonchi and wheezes expiratory wheezes Cardio Rate: regular rate and not tachycardic Rhythm: regular rhythm Heart Sounds: no murmurs GI Palpation: soft, not firm, no guarding, no masses, not rigid and nontender Skin General skin exam: no rashes or lesions noted Neuro General: patient alert, patient awake, patient oriented x3 and tone normal Extrem General: edema Laterality: bilateral (trace) Psych Appearance: grossly normal Mental Status: mental status grossly normal Speech and Movement: speech and movement normal Course Vital Signs Vital signs: Vital Signs Temperature 36.4 C L 01/16/21 09:31 Pulse 56 L 01/16/21 09:31 Respiratory Rate 20 01/16/21 09:31 Blood Pressure 127/67 01/16/21 09:31 Pulse Oximetry 93 01/16/21 09:31 Temperature 36.4 C L 01/16/21 09:31 Temperature Source Skin 01/16/21 09:31 Pulse 56 L 01/16/21 09:31 Respiratory Rate 19 01/16/21 09:41 Respiratory Effort Incrsd Work of Breathing 01/16/21 09:47 Respiratory Depth Normal 01/16/21 09:41 Respiratory Pattern Normal 01/16/21 09:41 Blood Pressure 127/67 01/16/21 09:31 Pulse Oximetry 93 01/16/21 09:31 Oxygen Delivery Method Room Air 01/16/21 09:31 Oxygen Flow Rate 0 01/16/21 09:31 Pain Level 3 01/16/21 09:31 Lab/Test Results Lab/Test Results: Laboratory Tests Range/Units 01/16/21 09:45 WBC (4.4-10.8) 10^3/uL 6.85 RBC (4.36-5.78) 10^6/uL 5.14 Hgb (13.5-17.5) g/dL 15.6 Hct (40.0-50.0) % 46.9 MCV (80-95) fL 91.2 MCH (27.0-33.0) pg 30.4 MCHC (32.0-36.0) % 33.3 RDW (11.8-14.1) % 14.2 H Plt Count (130-400) 10^3/uL 169 MPV (8.0-11.0) fL 11.7 H Immature Gran % 1.6 Neutrophils % 55.6 Lymphocytes % 18.8 Monocytes % 18.0 Eosinophils % 5.3 Basophils % 0.7 Nucleated RBC % % 0 Absolute Neutrophils (1.2-6.7) 10^3/uL 3.81 Absolute Lymphocytes (1.2-3.4) 10^3/uL 1.29 Absolute Monocytes (0.1-0.8) 10^3/uL 1.23 H Absolute Eosinophils (0.0-0.7) 10^3/uL 0.36 Absolute Basophils (0.0-0.2) 10^3/uL 0.05
[2021-01-16] MEDS: Normal Saline Flush 10 ML SYR IVP ×2 (10:23→16:21)
[2021-01-16] MEDS: Furosemide 20 MG/2 ML VIAL IVP (10:23)
[2021-01-16] MEDS: Albuterol/Ipratropium 3 ML UPD VIAL UPD (10:26)
--- NOTE | 2021-01-16 10:26 | DI.RAD_ITS ---
Exam(s) XR PORTABLE CHEST AP EXAM: XR PORTABLE CHEST AP CLINICAL HISTORY: cough TECHNIQUE: 2D digital imaging was performed. COMPARISON: CR XR PORTABLE CHEST AP from 11/28/2020 FINDINGS: Exam is extremely limited by body habitus and under penetration. The lung bases are not well evalua rocio. The heart is enlarged, unchanged. Sternal wires and mediastinal clips are noted. No gross for focal infiltrate or effusion. Mild pulmonary edema not excluded. IMPRESSION: Limited exam. No gross evidence acute pulmonary findings. DATA REPOSITORY: RADIATION DOSE DELIVERED:
[2021-01-16 10:30] LABS: ALT 74 U/L (16-63); AST 45 U/L (15-37); Albumin 3.4 g/dL (3.4-5.0); Alkaline Phosphatase 122 U/L (46-116); Anion Gap 3.6 mmol/L (3-11); BUN 24 mg/dL (7-18); CO2 37.4 mmol/L (21.0-32.0); CREATININE 1.3 mg/dL (0.70-1.30); Calcium 8.6 mg/dL (8.5-10.1); Chloride 97 mmol/L (98-107); Estimated GFR 55.75 (mL/min/1.73m2); Glucose 140 mg/dL (74-106); NT-proBNP 254 pg/mL (<300); Sodium 138 mmol/L (136-145); Total Protein 7.5 g/dL (6.4-8.2)
[2021-01-16 10:33] LABS: Troponin I < 0.05 ng/mL (<0.06)
[2021-01-16 10:34] LABS: Potassium 2.9 mmol/L (3.5-5.1)
[2021-01-16 10:37] LABS: Source Nasal/Nares
[2021-01-16 11:57] LABS: COVID-19 PCR Negative (Negative)
[2021-01-16] MEDS: POTASSIUM CHLORIDE 20 MEQ/100 ML BAG 50 MEQ IVPB (12:03)
--- NOTE | 2021-01-16 12:08 | NUR.NOTE ---
Nursing Note: /Jessica [phone]
[2021-01-16 13:35] LABS: Troponin I < 0.05 ng/mL (<0.06)
--- NOTE | 2021-01-16 15:10 | W.PM.HP.N ---
Date of service: 01/16/21 Time of Service: 15:10 Assessment and Plan Assessment and plan (1) Acute exacerbation of CHF (congestive heart failure): Status: Acute Assessment and plan: CXR shows pulmonary edema. BNP normal. Troponin neg x 2. On 60mg lasix and Zaroxoly 2.5mg daily at home. Given 20mg IV lasix in ED w/o any significant diureses. Lasix 40mg IV BID. Echocardiogram 08/02/18: . 1. Left ventricle: The cavity size was mildly to moderately dilated. There was mild hypertrophy of the septum. Systolic function was mildly reduced. The estimated ejection fraction was 45%. Akinesis of the basal-midinferior myocardium. 2. Mitral valve: Prior procedures included surgical repair. An annular ring prosthesis was present. Transvalvular velocity was within the normal range. There was no evidence for stenosis. There was trivial regurgitation. Mean gradient (D): 4mm Hg at 55 bpm. 3. Left atrium: The atrium was moderately dilated. 4. Right ventricle: The cavity size was normal. Wall thickness was normal. Systolic function was normal. 5. Right atrium: The atrium was moderately dilated. Low Na diet. Monitor for any excessive fluid intake. Daily wts. (2) Obstructive sleep apnea: Status: Chronic Assessment and plan: Not on CPAP (3) Hyperlipidemia: Status: Chronic Assessment and plan: Cont atorvastain 40mg daily. (4) Hypertension: Status: Chronic Assessment and plan: Cont metoprolol. Monitor. (5) Morbid obesity: Status: Chronic Assessment and plan: Risk factor given his co-morbidities. (6) CAD (coronary artery disease): Status: Chronic Assessment and plan: Cont BB, metoprolol, statin. No CP. (7) Paroxysmal A-fib: Status: Acute Assessment and plan: On Eliquis for AC. Cont Metoprolol. Currently in sinus rhythm. Telemetry. History of Present Illness History of Present Illness Chief Complaint: Shortness of breath. Narrative: This is a 65 yo male with a PMH of CAD/CABG , CHF, afib, HTN, HLD, morbid obesity, previous tobacco use. He states he has noted a 5 day h/o progressively worsening SOA; worse with exertion. No CP/palpitations. + productive cough. No fever/chills. No N/V/abd pain but he endorses a decrease in appetite. At home, without supplemental O2, he states his O2 saturations are typically in the mid 90's but now in the low 90's with decreases into the 80's with exertion. He is s/p dx of COVID in November. He received monoclonal antibodies and he improved to baseline. COVID-19 negative currently. WBC count normal. CXR with evidence of pulmonary edema; somewhat limited study d/t body habitus. He was given 20mg IV lasix in the ED. He was placed on 1L O2 per NC and O2 saturations are in the low 90's. Review of Systems All systems reviewed & are unremarkable except as noted in HPI and below [facility] Active Problem List (Updated 01/16/21 @ 15:29 by Luis Moreno MD) Paroxysmal A-fib (Acute) COVID-19 (Acute) Acute exacerbation of CHF (congestive heart failure) (Acute) Congestive heart failure with left ventricular systolic dysfunction (Acute) Chest pain (Acute) Mitral regurgitation (Acute) Obstructive sleep apnea (Chronic) Hyperlipidemia (Chronic) Hypertension (Chronic) Morbid obesity (Chronic) CAD (coronary artery disease) (Chronic) H/O adenomatous polyp of colon (Chronic) Pancolonic diverticulosis (Chronic) H/O surgical procedure (Chronic) Atrial fibrillation with rapid ventricular response (Acute) Ischemic cardiomyopathy (Acute) Medical History (Updated 01/16/21 @ 15:29 by Luis Moreno MD) 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 -> EMERGENT ANGIOPLASTY = OCCLUDED RCA, 50% CIRCUMFLEX (EF 40%POST-MT) ADENOMA COLON POLYP CAD Diverticulitis (~1989) EMERGENT COLECTOMY & TEMPORARY COLOSTOMY Essential hypertension Hyperlipidemia Obesity SKIN NEOPLASM Surgical History Angioplasty Appendectomy Arthroplasty of knee LEFT TORN ACL & MENISCUS COLECTOMY Colonoscopy - MAC (~2007) Colonoscopy - MAC (05/28/16) Colostomy (~1989) DIVERTICULITIS WITH EMERGENT COLECTOMY AND TEMPORARY COLOSTOMY. Family History Mother Personal history of malignant neoplasm COLON Father Heart disease Sister Personal history of malignant neoplasm Brother Heart disease Other Hearing loss Social History Smoking/Tobacco Use Status: Former Tobacco Use Smoking risk assessment performed?: Yes Alcohol Intake: current Alcohol Intake frequency: holidays/special occasions only Drug use: Never Substance use type: does not use Details: quit smoking 20+ years ago Current gender identity: male Do you feel safe at home: Yes Do you feel safe in your relationship?: Yes Meds Allergies and Home Medications Allergies Allergy/AdvReac Type Severity Reaction Status Date / Time No Known Allergies Allergy Unverified 11/21/18 17:27 Home Medications Medication Instructions Recorded Confirmed Type aspirin [Aspir-81] 81 mg PO DAILY tab-cap 05/24/12 01/16/21 History atorvastatin [Lipitor] 40 mg PO HS 05/24/12 01/16/21 History albuterol sulfate [ProAir HFA] 2 puff INHALATION Q4H PRN PRN #1 10/11/16 01/16/21 Rx inh tamsulosin 0.4 mg PO DAILY@0830 07/21/17 01/16/21 History Eliquis 5 mg PO BID #60 tab 07/23/17 01/16/21 Rx furosemide 60 mg PO DAILY 08/01/18 01/16/21 History metoprolol tartrate 50 mg PO BID 08/01/18 01/16/21 History amiodarone 100 mg PO DAILY 08/02/18 01/16/21 History hydrocortisone acetate 25 mg ND DAILY PRN 11/21/18 11/28/20 History nitroglycerin 0.4 mg SUBLINGUAL Q5-15M PRN 11/21/18 01/16/21 History omeprazole magnesium [Prilosec OTC] 20 mg PO DAILY 11/21/18 01/16/21 History bupropion HCl 150 mg PO DAILY 11/28/20 01/16/21 History metolazone 2.5 mg PO DAILY PRN 11/28/20 01/16/21 History potassium chloride 20 meq PO DAILY 11/28/20 01/16/21 History Exam Narrative Exam Narrative: This is a morbidly obese male with a very large abd girth, sitting in recliner. Appears his stated age. Const General: cooperative and no acute distress Nutritional Appearance: obese morbidly obese Orientation: alert and oriented x3 HENMT Head: atraumatic Ears: hearing grossly normal bilaterally Eyes General: appearance normal, both eyes and all related structures Sclera: sclerae normal Resp Effort & Inspection: normal respiratory effort Auscultation: clear to auscultation bilaterally and diminished lung sounds Cardio Rate: regular rate Rhythm: regular rhythm Heart Sounds: S1 normal and S2 normal GI Palpation: soft and nontender Auscultation: high-pitched sounds Skin General skin exam: no rashes or lesions noted Wounds: no wounds Neuro General: no focal motor deficits Cranial Nerves: facial strength normal Cognition: normal cognition Speech: speech normal Extrem General: no calf tenderness and edema Laterality: bilateral (trace) Psych Speech and Movement: speech and movement normal Mood: congruent mood Affect: normal affect Results Labs Result diagrams: 01/16/21 09:45 01/16/21 09:45 Labs: Laboratory Results - last 24 hr 01/16/21 01/16/21 01/16/21 09:45 09:45 10:25 WBC 6.85 RBC 5.14 Hgb 15.6 Hct 46.9 MCV 91.2 MCH 30.4 MCHC 33.3 RDW 14.2 H Plt Count 169 MPV 11.7 H Immature Gran % 1.6 Neutrophils % 55.6 Lymphocytes % 18.8 Monocytes % 18.0 Eosinophils % 5.3 Basophils % 0.7 Nucleated RBC % 0 Absolute Neutrophils 3.81 Absolute Lymphocytes 1.29 Absolute Monocytes 1.23 H Absolute Eosinophils 0.36 Absolute Basophils 0.05 Sodium 138 Potassium 2.9 L Chloride 97 L Carbon Dioxide 37.4 H Anion Gap 3.6 BUN 24 H Creatinine 1.3 Estimated GFR/1.73 m2 55.75 Glucose 140 H Calcium 8.6 Total Bilirubin 1.0 AST 45 H ALT 74 H Alkaline Phosphatase 122 H Troponin I < 0.05 NT-Pro-B Natriuret Pep 254 Total Protein 7.5 Albumin 3.4 COVID-19 Source Nasal/Nares SARS-CoV-2 (PCR) Negative 01/16/21 13:14 WBC RBC Hgb Hct MCV MCH MCHC RDW Plt Count MPV Immature Gran % Neutrophils % Lymphocytes % Monocytes % Eosinophils % Basophils % Nucleated RBC % Absolute Neutrophils Absolute Lymphocytes Absolute Monocytes Absolute Eosinophils Absolute Basophils Sodium Potassium Chloride Carbon Dioxide Anion Gap BUN Creatinine Estimated GFR/1.73 m2 Glucose Calcium Total Bilirubin AST ALT Alkaline Phosphatase Troponin I < 0.05 NT-Pro-B Natriuret Pep Total Protein Albumin COVID-19 Source SARS-CoV-2 (PCR) Last Vital Signs Temp 36.9 C 01/16/21 15:08 Pulse 68 01/16/21 15:08 Resp 17 01/16/21 15:08 BP 123/69 01/16/21 15:08 Pulse Ox 93 01/16/21 15:08
[2021-01-16] MEDS: Furosemide 20 MG/2 ML VIAL 40 MG IVP (16:21)
[2021-01-16] MEDS: Albuterol 2.5 MG/3 ML INH SOLN VIAL UPD (20:09)
[2021-01-16] MEDS: Metoprolol 50 MG TAB PO (20:10)
[2021-01-16] MEDS: Apixaban 5 MG TAB PO (20:10)
[2021-01-16] MEDS: Potassium Chloride 20 MEQ TABCR PO (20:10)
[2021-01-16] MEDS: Atorvastatin 40 MG TAB PO (21:23)
[2021-01-16] MEDS: Magnesium Oxide 400 MG TAB PO (21:23)
[2021-01-17] VITALS (8 sets, daily range): BP systolic 106–123; BP diastolic 68–81; PULSE 57–71; RESP 17–18; TEMP 36.2–37.1; O2SAT 93–95
[2021-01-17 08:07] LABS: HCT 43.4 % (40.0-50.0); HGB 14.5 g/dL (13.5-17.5); MCH 29.8 pg (27.0-33.0); MCHC 33.4 % (32.0-36.0); MCV 89.3 fL (80-95); MPV 12.2 fL (8.0-11.0); Nucleated RBC 0 %; Platelet Count 151 10^3/uL (130-400); RBC 4.86 10^6/uL (4.36-5.78); RDW 14.1 % (11.8-14.1); RDW-SD 46.2 fL; WBC 6.86 10^3/uL (4.4-10.8)
[2021-01-17 08:23] LABS: ALT 70 U/L (16-63); AST 41 U/L (15-37); Albumin 3.1 g/dL (3.4-5.0); Alkaline Phosphatase 109 U/L (46-116); BUN 27 mg/dL (7-18); CREATININE 1.1 mg/dL (0.70-1.30); Calcium 8.5 mg/dL (8.5-10.1); Chloride 99 mmol/L (98-107); Glucose 127 mg/dL (74-106); Magnesium 2.1 mg/dL (1.8-2.4); Sodium 137 mmol/L (136-145); Total Protein 6.9 g/dL (6.4-8.2)
[2021-01-17] MEDS: Acetaminophen 325 MG TAB PO (08:26)
--- NOTE | 2021-01-17 08:30 | RT.EKG_ITS ---
APPROVED REPORT Exam: Resting ECG Reason for Exam: hypokalemia Patient Location: I HR:64 bpm ECG Measurements Heart Rate 64 AXIS ID 181 P 43 QRSd 139 QRS 66 QT [id number] T 66 QTc 0 Conclusion Sinus rhythm...normal P axis, V-rate 60- 99 Nonspecific intraventricular conduction delay...QRSd >115mS, not LBBB/RBBB Possible inferior infarct, old...Q >35mS, II III aVF
[2021-01-17 08:33] LABS: Potassium 2.7 mmol/L (3.5-5.1)
[2021-01-17] MEDS: buPROPion-CR 150 MG TABCR PO (08:39)
[2021-01-17] MEDS: Tamsulosin 0.4 MG CAPCR PO (08:39)
[2021-01-17] MEDS: Apixaban 5 MG TAB PO ×2 (08:39→19:35)
[2021-01-17] MEDS: Aspirin E.C. 81 MG TABEC PO (08:39)
[2021-01-17] MEDS: metOLazone 2.5 MG TAB PO (08:40)
[2021-01-17] MEDS: Metoprolol 50 MG TAB PO ×2 (08:41→19:35)
[2021-01-17] MEDS: Omeprazole 20 MG CAPCR PO (08:41)
[2021-01-17] MEDS: Potassium Chloride 20 MEQ TABCR PO ×4 (08:44→19:35)
[2021-01-17] MEDS: Amiodarone 200 MG TAB 100 MG PO (08:44)
[2021-01-17] MEDS: Furosemide 20 MG/2 ML VIAL 40 MG IVP ×2 (08:46→15:48)
[2021-01-17 08:47] LABS: Absolute Basophil Count 0.14 10^3/uL (0.0-0.2); Absolute Eosinophil Count 0.55 10^3/uL (0.0-0.7); Absolute Lymphocyte Count 1.51 10^3/uL (1.2-3.4); Absolute Monocyte Count 0.82 10^3/uL (0.1-0.8); Absolute Neutrophil Count 3.84 10^3/uL (1.2-6.7); Atypical Lymphocytes % 4; Bands % 2; Diff Comment Manual Differential; RBC Morphology Normal
[2021-01-17] MEDS: Normal Saline Flush 10 ML SYR IVP ×2 (08:47→15:49)
[2021-01-17] MEDS: POTASSIUM CHLORIDE 20 MEQ/100 ML BAG 50 MEQ IVPB ×4 (09:16→18:23)
[2021-01-17] MEDS: Normal Saline 500 ML 100 ML IV (09:21)
[2021-01-17 14:17] LABS: Potassium 3.3 mmol/L (3.5-5.1)
--- NOTE | 2021-01-17 15:51 | PDOC.CMIN ---
- If Service Date Differs Date of service: 01/17/21 Time of Service: 15:51 Care Management Initial Assess REASON FOR HOSPITALIZATION:: Pulmonary edema. PAST MEDICAL HISTORY/PAST SURGICAL HISTORY:: Active Problem List: Paroxysmal A-fib (Acute), COVID-19 (Acute), Acute exacerbation of CHF (congestive heart failure) (Acute), Congestive heart failure with left ventricular systolic dysfunction (Acute), Chest pain (Acute), Mitral regurgitation (Acute), Obstructive sleep apnea (Chronic),. Hyperlipidemia (Chronic), Hypertension (Chronic), Morbid obesity (Chronic),. CAD (coronary artery disease) (Chronic), H/O adenomatous polyp of colon (Chronic), Pancolonic diverticulosis (Chronic), H/O surgical procedure (Chronic), Atrial fibrillation with rapid ventricular response (Acute), and Ischemic cardiomyopathy (Acute). Medical History: Acute myocardial infarction of inferior wall - IWMI '96. -> EMERGENT ANGIOPLASTY = OCCLUDED RCA, 50% CIRCUMFLEX (EF 40%POST-ME), ADENOMA COLON POLYP, CAD, Diverticulitis (~1989) - EMERGENT COLECTOMY & TEMPORARY COLOSTOMY, Essential hypertension, Hyperlipidemia, Obesity, and SKIN NEOPLASM. Surgical History: Angioplasty, Appendectomy, Arthroplasty of knee - LEFT - TORN ACL & MENISCUS, COLECTOMY, Colonoscopy - MAC (~2007), Colonoscopy - MAC (05/28/16), and Colostomy (~1989) - DIVERTICULITIS WITH EMERGENT COLECTOMY AND TEMPORARY COLOSTOMY. PREVIOUS FUNCTIONAL STATUS/SOCIAL/FAMILY SUPPORTS:: Cristian lives in [place] [facility] [place] with his Jessica but says his mailing address is in [place]. 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 He drives and is independent at baseline. He enjoys outdoor activities, such as hunting, fishing, caring for the lawn, etc. He has strong support from friends and family members. CURRENT FUNCTIONAL STATUS:: Cristian is sitting in a chair watching television when comes to meet with him. He is pleasant and readily engages in conversation. He talks about his family and hopes to be able to return home on Tuesday. ADVANCE DIRECTIVES:: None on file; Cristian accepts an Advance Directives from for completion at a later time. Has patient been provided with info about the portal/API?: Yes Did the patient sign up for the portal?: No (Patient declines.) CODE STATUS:: Full Code INSURANCE COVERAGE / FINANCIAL ISSUES:: Medicaid. CURRENT HOME/COMMUNITY SERVICES/EQUIPMENT:: Cristian has no in-home services. He has a CPAP machine and oxygen from [facility] in [place], [place]. He states he only needs the O2 when engaging in activities such as splitting firewood. PRIMARY CARE PHYSICIAN:: NORBERTO Dhaliwal ([facility]). POTENTIAL DISCHARGE NEEDS:: Follow up appointment with PCP PATIENT/FAMILY EDUCATION NEEDS:: Discharge instructions including medications, limitations, and follow up plan of care; discuss Ask Me Three and self care needs. ANTICIPATED BARRIERS TO DISCHARGE:: No anticipated barriers to discharge at this time. TRANSPORTATION:: Via private vehicle with either his , Jessica, or one of his sons. PLAN:: Cristian will likely be discharged home with no new services when medically cleared by provider. He will follow up with his PCP and discharge plan of care as prescribed. He will be transported home via private vehicle by family when ready. CM will continue to follow.
--- NOTE | 2021-01-17 15:59 | PGE_ITS ---
Date of Service Date of service: 01/17/21 Time of Service: 15:59 Assessment and Plan Assessment and plan (1) Acute exacerbation of CHF (congestive heart failure): Status: Acute Assessment and plan: CXR shows pulmonary edema. BNP normal. Troponin neg x 2. On 60mg lasix and Zaroxoly 2.5mg daily at home. continue lasix 40mg IV BID and zaroxolyn but increase to 5 mg daily. add diovan to his regimen Echocardiogram 08/02/18: . 1. Left ventricle: The cavity size was mildly to moderately dilated. There was mild hypertrophy of the septum. Systolic function was mildly reduced. The estimated ejection fraction was 45%. Akinesis of the basal-midinferior myocardium. 2. Mitral valve: Prior procedures included surgical repair. An annular ring prosthesis was present. Transvalvular velocity was within the normal range. There was no evidence for stenosis. There was trivial regurgitation. Mean gradient (D): 4mm Hg at 55 bpm. 3. Left atrium: The atrium was moderately dilated. 4. Right ventricle: The cavity size was normal. Wall thickness was normal. Systolic function was normal. 5. Right atrium: The atrium was moderately dilated. Low Na diet. Monitor for any excessive fluid intake. Daily wts. (2) Obstructive sleep apnea: Status: Chronic Assessment and plan: patient has CPAP at home. I asked his to bring this in for tomorrow night's use. (3) Hypertension: Status: Chronic Assessment and plan: Cont metoprolol. add low dose diovan to his regimen for his CHF Monitor. (4) CAD (coronary artery disease): Status: Chronic Assessment and plan: Cont BB, metoprolol, statin. Patient alleges chest discomfort when he presented w/ dyspnea however troponin I have been negative. He needs an updated stress MPI upon discharge once his CHF is stabilized. (5) Hyperlipidemia: Status: Chronic Assessment and plan: Cont atorvastain 40mg daily. (6) Paroxysmal A-fib: Status: Acute Assessment and plan: On Eliquis for AC. Cont Metoprolol and amiodarone Currently in sinus rhythm. Telemetry. (7) Morbid obesity: Status: Chronic Assessment and plan: Risk factor given his co-morbidities. Subjective Subjective Interval history since last seen: 65-year-old male with history of obesity, heart failure with reduced ejection fraction of 45%, mild to moderate LV dilatation and akinetic basal-mid inferior myocardium per echocardiogram 08/02/2018, prior myocardial infarction and two-vessel coronary bypass graft along with mitral valve surgery, atrial fibrillation for which she is chronically anticoagulated, obstructive sleep apnea for which she wears a CPAP, essential hypertension. Patient is chronically on a beta-sridhar metoprolol and amiodarone along with a statin and apixaban and aspirin. His home diuretic therapy consisted of furosemide 60 mg daily along with metolazone 2.5 mg daily as needed. Patient presented to the hospital 01/16/2021 with 5-day history of progressive worsening dyspnea on exertion along with orthopnea and increasing abdominal girth and bilateral pedal edema. He has had a cough that is been nonproductive no fever chills. He also has complained of increasing bilateral leg edema. He has home oxygen which he uses on an as-needed basis and lately has been requiring it daily. He has had hypoxemia with exertion with saturations down in the 80s. He had a prior case of Covid pneumonia in November received monoclonal antibodies and improved. COVID-19 status on admission was negative. WBC count was normal on admission chest x-ray suggested pulmonary edema but was somewhat limited due to his body habitus. He was given 20 mg of Lasix in the emergency department placed on nasal cannula. He was admitted for exacerbation of his congestive heart failure. Since admission has been placed on Lasix 40 mg IV twice daily and continued on his metolazone 2.5 mg daily. Unfortunately they did not get an actual weight yesterday so I have no idea how much weight gain or loss has had since admission. When I saw him this afternoon they still had not weighed him but si nce that time they have obtained a weight of 143.8 kg which allegedly is up 3 kg since admission however his weights on admission were stated weights by the patient or estimated weights. They listed his stated weight is 140.6 kg. Looking back to November 28, 2020 he was documented at 152.3 kg where his he was 136 kg in October 18, 2019. His output reportedly was 1075 yesterday and so far spent 2500 mL. His net cumulative balance is reportedly -1600 mL. He is feeling less dyspneic today although he still has pitting pedal edema and abdominal edema. proBNP on admission surprisingly was not elevated it was normal at 254 whereas in November of this year he was 1300. His troponin I levels were negative at less than 0.05x2 sets yesterday. Venous duplex of his legs was negative for DVT yesterday. Echocardiogram was not performed yesterday. Patient does not recall his last stress test or his last echocardiogram. Patient has not been on LU inhibitor or ARB at home. Patient should be started on either an LU inhibitor or an angiotensin receptor sridhar and maximized and if this still cannot control his heart failure with adequate diuresis and beta- sridhar and an ARB then we should consider putting him on Entresto and also consider an SGLT2 inhibitor Exam Narrative Exam Narrative: Morbidly obese white male sitting up in his chair wearing nasal oxygen at 0.5 L/min. HEENT is remarkable for obese neck difficult to discern JVD normal carotid pulses Lungs with bibasilar rales no rhonchi or wheezing Heart is regular without appreciable murmur rub however heart tones are difficult to hear because of his obesity. Abdomen is obese, soft, nontender w/ normal bowel sounds Lower extremities with 1+ pitting edema Objective Last Vital Signs Temp 36.2 C L 01/17/21 15:11 Pulse 60 01/17/21 15:11 Resp 18 01/17/21 15:11 BP 123/78 01/17/21 15:11 Pulse Ox 93 01/17/21 15:11 Laboratory Results - last 24 hr 01/17/21 01/17/21 01/17/21 07:09 07:09 14:00 WBC 6.86 RBC 4.86 Hgb 14.5 Hct 43.4 MCV 89.3 MCH 29.8 MCHC 33.4 RDW 14.1 Plt Count 151 MPV 12.2 H Immature Gran % See Differential Neutrophils % 54.0 Band Neutrophils % 2 Lymphocytes % 18.0 Atypical Lymphs % 4 Monocytes % 12.0 Eosinophils % 8.0 Basophils % 2.0 Nucleated RBC % 0 Absolute Neutrophils 3.84 Absolute Lymphocytes 1.51 Absolute Monocytes 0.82 H Absolute Eosinophils 0.55 Absolute Basophils 0.14 RBC Morphology Normal Sodium 137 Potassium 2.7 L* 3.3 L Chloride 99 Carbon Dioxide 33.0 H Anion Gap 5.0 BUN 27 H Creatinine 1.1 Estimated GFR/1.73 m2 >= 60.00 Glucose 127 H Calcium 8.5 Magnesium 2.1 Total Bilirubin 1.0 AST 41 H ALT 70 H Alkaline Phosphatase 109 Total Protein 6.9 Albumin 3.1 L
[2021-01-17] MEDS: Valsartan 40 MG TAB 20 MG PO (21:29)
[2021-01-17] MEDS: Magnesium Oxide 400 MG TAB PO (21:29)
[2021-01-17] MEDS: Atorvastatin 40 MG TAB PO (21:29)
[2021-01-18] VITALS (7 sets, daily range): BP systolic 109–122; BP diastolic 66–79; PULSE 58–72; RESP 16–18; TEMP 36.4–36.7; O2SAT 92–94
--- NOTE | 2021-01-18 | DI.CT_ITS ---
Exam(s) CT ABDOMEN PELVIS W EXAM: CT ABDOMEN PELVIS W CLINICAL HISTORY: abdominal bloating and discomfort. TECHNIQUE: Imaging Protocol: Axial computed tomography images with coronal and sagittal reformatted images were created and reviewed CONTRAST MATERIAL: Intravenous: Omnipaque 100cc Oral: Yes. Oral contrast was administered for bowel opacification. COMPARISON: CT CT CHEST PE CTA from 10/18/2019 FINDINGS: VISUALIZED LUNG BASES: No nodules nor pleural effusions evident. Sternotomy wires. Prosthetic luigi l valve noted. ABDOMEN: There is no ascites. LIVER: There are no focal hepatic lesions evident . GALLBLADDER/BILIARY: No obvious gallbladder pathology. CBD is not dilated. PANCREAS: No evidence of pancreatic mass nor dilatation of the pancreatic duct. SPLEEN: Spleen is not enlarged. No obvious intrasplenic lesions. Splenic and portal veins are paten t. ADRENALS: There are no significant adrenal masses. KIDNEYS:No cysts evident. No solid renal masses. No calculi nor hydronephrosis.. ABDOMINAL AORTA: Abdominal aorta is not enlarged. Retroaortic left renal vein noted. LYMPH NODES:There is no retroperitoneal nor paraaortic adenopathy. ABDOMINAL WALL: No evidence of significant anterior abdominal wall nor inguinal hernia. GI: There is no evidence of bowel obstruction, free air, nor abscess. PELVIS: GI: No evidence of appendicitis.No evidence of sigmoid diverticulitis. LYMPH NODES: There is no intrapelvic nor inguinal adenopathy. REPRODUCTIVE: Prostate size upper normal. URINARY BLADDER: No obvious abnormality. OSSEOUS: No significant osseous lesions. IMPRESSION: 1. No significant acute findings in the abdomen and pelvis. RADIATION DOSE DELIVERED: 1,851.16mGy.cm Total DLP DATA REPOSITORY: All CT scans at this facility are submitted to the National Radiology Data Registry (NRDR) Dose Index Registry (DIR) with the [employer] (ACR). RADIATION OPTIMIZATION: All CT scans at this facility use at least one of these dose optimization te chniques: automated exposure control; mA and/or kV adjustment per patient size (includes targeted exa ms where dose is matched to clinical indication); or iterative reconstruction.
[2021-01-18 06:45] LABS: BUN 24 mg/dL (7-18); CREATININE 1.1 mg/dL (0.70-1.30); Calcium 8.8 mg/dL (8.5-10.1); Chloride 100 mmol/L (98-107); Glucose 124 mg/dL (74-106); Potassium 3.3 mmol/L (3.5-5.1); Sodium 138 mmol/L (136-145)
[2021-01-18 06:46] LABS: Anion Gap 3.2 mmol/L (3-11); CO2 34.8 mmol/L (21.0-32.0); Magnesium 2.2 mg/dL (1.8-2.4); NT-proBNP 166 pg/mL (<300)
[2021-01-18] MEDS: Amiodarone 200 MG TAB 100 MG PO (07:22)
[2021-01-18] MEDS: Tamsulosin 0.4 MG CAPCR PO (07:22)
[2021-01-18] MEDS: buPROPion-CR 150 MG TABCR PO (07:22)
[2021-01-18] MEDS: Omeprazole 20 MG CAPCR PO (07:22)
[2021-01-18] MEDS: Valsartan 40 MG TAB 20 MG PO ×2 (07:22→21:21)
[2021-01-18] MEDS: Aspirin E.C. 81 MG TABEC PO (07:22)
[2021-01-18] MEDS: Potassium Chloride 20 MEQ TABCR PO (07:22)
[2021-01-18] MEDS: Apixaban 5 MG TAB PO ×2 (07:22→21:21)
[2021-01-18] MEDS: Normal Saline Flush 10 ML SYR IVP ×4 (07:23→21:20)
[2021-01-18] MEDS: Furosemide 20 MG/2 ML VIAL 40 MG IVP (07:23)
[2021-01-18] MEDS: Metoprolol 50 MG TAB PO ×2 (07:23→21:21)
[2021-01-18] MEDS: metOLazone 2.5 MG TAB 5 MG PO (07:33)
[2021-01-18] MEDS: Sodium Chloride-Nasal SPRAY-ADULT 44 ML BTL NS (08:58)
[2021-01-18] MEDS: POTASSIUM CHLORIDE 20 MEQ/100 ML BAG 50 MEQ IVPB (09:28)
[2021-01-18] MEDS: Potassium Chloride 20 MEQ TABCR 40 MEQ PO ×3 (12:24→21:21)
[2021-01-18] MEDS: POTASSIUM CHLORIDE 20 MEQ/100 ML BAG 30 MEQ IVPB (12:24)
--- NOTE | 2021-01-18 13:50 | PGE_ITS ---
Date of Service Date of service: 01/18/21 Time of Service: 13:50 Assessment and Plan Assessment and plan (1) Acute exacerbation of CHF (congestive heart failure): Status: Acute Assessment and plan: patient w/ acute exacerbation of HFREF. Last echo from 08/02/2018 demonstrated: Mild to moderately dilated LV with mild hypertrophy of the septum as well as mild LV dysfunction with an ejection fraction 45% and akinetic basal-mid inferior myocardium. He is status post mitral annular ring prosthesis treatment of mild regurgitation. Moderate left atrial dilatation with normal RV size and function and moderately dilated right atrium. Patient needs an updated echocardiogram and needs to be scheduled for stress MPI with Lexiscan. Further risk reduction could be achieved by the addition of an ARB and also we should consider addition of an SGLT2 inhibitor. (2) Obstructive sleep apnea: Status: Chronic Assessment and plan: patient has CPAP at home. Patient's brought in his home CPAP unit. RT has checked the unit over and its not a recall unit therefore respiratory therapy will set him up with his home CPAP tonight (3) Hypertension: Status: Chronic Assessment and plan: Cont metoprolol. add low dose diovan to his regimen for his CHF Monitor. (4) CAD (coronary artery disease): Status: Chronic Assessment and plan: Cont BB, metoprolol, statin. Patient alleges chest discomfort when he presented w/ dyspnea however troponin I have been negative. He needs an updated stress MPI upon discharge once his CHF is stabilized. (5) Hyperlipidemia: Status: Chronic Assessment and plan: Currently on atorvastatin 40 mg daily.Last lipid profile within the hospital system was from March 04, 2020 demonstrated suboptimal control of his LDL at 108 with a low normal HDL 52 and normal triglyceride 148. I get a repeat fasting lipid profile as well as a glycohemoglobin A1c in the morning. (6) Paroxysmal A-fib: Status: Acute Assessment and plan: On Eliquis for AC. Cont Metoprolol and amiodarone Currently in sinus rhythm. Telemetry. (7) Morbid obesity: Status: Chronic Assessment and plan: Risk factor given his co-morbidities. Subjective Subjective Interval history since last seen: Patient states he feels better today he is less dyspneic. He is down to 0.5 L/min per nasal cannula. We will get a trial him on room air. His weight is down to 142.8 kg 1 kg drop since yesterday. However his intake and output is only down about 400 mL yesterday. I talked with him and his about lifestyle changes to improve control of his heart failure including monitoring his sodium intake, strict adherence to the use of his CPAP for his MICHELLE and we also talked about the need to have a follow-up stress MPI to evaluate for any residual ischemic heart disease. His states that when he had his open heart surgery his sternotomy was sewn too tightly and that is part of the reason he has exertional dyspnea. He reportedly has seen a side framer at [facility] who is performed pulmonary function test. Patient does not recall his last stress MPI or his last echo. I told him and his that we will get an echocardiogram tomorrow to evaluate his LV function. In the interim of increased his furosemide to 80 mg IV TID. He still having some residual problems with hypokalemia and is requiring oral and IV replacement. Depending on his LVEF tomorrow on his echocardiogram I may be adding some spironolactone to his regimen. We just added Diovan 20 mg twice daily. I also spoke with him and his about possibly putting him on an SGLT2 inhibitor even though he does not have diabetes. He is already on a beta-sridhar and amiodarone for his paroxysmal atrial fib. Exam Narrative Exam Narrative: Morbidly obese white male sitting up in his chair able to talk in complete paragraphs without dyspnea. Neck is obese difficult to discern JVD. Lungs with bibasilar posterior rales with a few end expiratory wheezes Heart is regular rate and rhythm no appreciable murmur rub. Chest wall with well-healed median sternotomy scar with no obvious deformity of his sternum. Abdomen is obese soft and nontender Lower extremities with marked improvement in his pedal edema. I could not elicit any pitting edema. Objective Last Vital Signs Temp 36.4 C L 01/18/21 07:17 Pulse 67 01/18/21 08:16 Resp 16 01/18/21 07:17 BP 122/77 01/18/21 07:17 Pulse Ox 94 01/18/21 07:17 Laboratory Results - last 24 hr 01/17/21 01/18/21 14:00 05:25 Sodium 138 Potassium 3.3 L 3.3 L Chloride 100 Carbon Dioxide 34.8 H Anion Gap 3.2 BUN 24 H Creatinine 1.1 Estimated GFR/1.73 m2 >= 60.00 Glucose 124 H Calcium 8.8 Magnesium 2.2 NT-Pro-B Natriuret Pep 166
[2021-01-18] MEDS: Furosemide 20 MG/2 ML VIAL 80 MG IVP ×2 (14:09→21:20)
[2021-01-18] MEDS: Omnipaque 350 MG/ML 100 ML BTL PO (17:00)
[2021-01-18] MEDS: Omnipaque 350 MG/ML 50 ML BTL 100 ML IV (17:02)
--- NOTE | 2021-01-18 17:28 | DI.VRAD_ITS ---
PROCEDURE INFORMATION: Exam: CT Abdomen And Pelvis With Contrast Exam date and time: 01/18/2021 2:10 PM Age: 65 years old Clinical indication: Other: Abdominal bloating and discomfort; Prior surgery; Surgery date: 6+ months; Surgery type: Hernia repair TECHNIQUE: Imaging protocol: Computed tomography of the abdomen and pelvis with contrast. Radiation optimization: All CT scans at this facility use at least one of these dose optimization techniques: automated exposure control; mA and/or kV adjustment per patient size (includes targeted exams where dose is matched to clinical indication); or iterative reconstruction. Contrast material: OMNIPAQUE 350; Contrast volume: 100 ml; Contrast route: INTRAVENOUS (IV); Other contrast: Oral, omnipaque 350, 900; COMPARISON: CT ABDOMEN PELVIS W 03/02/2018 19:38 FINDINGS: Lungs: Visualized lung bases are clear. Liver: Normal. No mass or intrahepatic biliary ductal dilatation. Gallbladder and bile ducts: Normal. No calcified stones. No ductal dilation. Pancreas: Normal. No mass or ductal dilation. Spleen: Normal. No splenomegaly. Adrenal glands: Normal. No mass. Kidneys and ureters: Normal. No hydronephrosis, calculus, cyst or mass. Stomach and bowel: There is normal transit of GI contrast from stomach through small bowel into the colon. No bowel dilatation or wall thickening is present. Appendix: No evidence of appendicitis. Intraperitoneal space: Unremarkable. No free air. No significant fluid collection. Vasculature: Aorta is mildly atherosclerotic. Lymph nodes: No enlarged retroperitoneal or mesenteric lymph nodes. Urinary bladder: No mass or wall thickening. Reproductive: Unremarkable as visualized. Bones/joints: Unremarkable. No acute fracture. No lytic lesion. Soft tissues: Unremarkable. IMPRESSION: No acute abnomality in the abdomen or pelvis. Dictated and Authenticated by: Rick Hua MD. Ordering:[facility] Toñito Suarez MD
[2021-01-18] MEDS: Magnesium Oxide 400 MG TAB PO (21:21)
[2021-01-18] MEDS: Atorvastatin 40 MG TAB PO (21:21)
[2021-01-19] VITALS (9 sets, daily range): BP systolic 103–129; BP diastolic 66–79; PULSE 62–77; RESP 18–22; TEMP 36.4–37.2; O2SAT 90–93
--- NOTE | 2021-01-19 07:00 | DI.US_ITS ---
APPROVED REPORT EXAM: Comprehensive 2D, Doppler, and color-flow Echocardiogram Patient Location: In-Patient Room/Bed: [facility] Pipe Wrapping Machine Operator: Margi Ramesh RDCS (AE) Indications: Acute CHF exacerbation, Evaluate LV and RV, CAD, A Fib, H/o Mitral valve repair Other Information Study Quality: Fair. Technically limited study due to body habitus. Conclusion Technically difficult and suboptimal study Mild concentric left ventricular hypertrophy. Normal left ventricular chamber size. Estimated eject ion fraction is 50 to 55%. Regional wall motion could not be accurately assessed The right ventricle was not well visualized Both atria appeared normal in size Trileaflet aortic valve without stenosis or regurgitation Mitral annuloplasty ring. Trace mitral regurgitation Normal tricuspid valve with trace regurgitation. Right ventricular systolic pressure could not be es timated Wall motion Left Ventricle The left ventricle is normal size. Left ventricular systolic function is mildly decreased. Borderline concentric left ventricular hypertrophy. Regional wall motion abnormalities cannot be excluded. Ther e is no ventricular septal defect visualized. LVEF is 50-55%. Right Ventricle Right ventricle is not well visualized. Right ventricular systolic function could not be assessed. Atria The left atrium size is normal. The right atrium size is normal. The interatrial septum is intact wit h no evidence for an atrial septal defect. Aortic Valve The aortic valve is normal in structure. Aortic valve is trileaflet. There is no aortic valvular sten osis. No aortic regurgitation is present. Mitral Valve Mitral annuloplasty changes are present. No evidence of mitral valve stenosis. Trace mitral regurgita tion. Tricuspid Valve The tricuspid valve is normal in structure. There is no tricuspid valve stenosis. Trace tricuspid reg urgitation. Unable to assess PA pressure. Pulmonic Valve The pulmonary valve is normal in structure. There is no pulmonic valvular stenosis. There is no pulmo afsaneh valvular regurgitation. Great Vessels The aortic root is normal in size. The ascending aorta is normal in size. Aortic arch is not well vis ualized. Due tor image quality, the IVC could not be assessed. Pericardium There is no pericardial effusion. 2D Dimensions IVSD d PLAX 1.25 cm M: 0.6-1.2 LVPW d PLAX 1.22 cm M: 0.6 - 1.2 LVID d PLAX 5.44 cm M: 4.2 - 5.8 LVDs 4.15 cm M: 2.5 - 4.0 Ao Root d 2.97 cm M: 3.1 - 3.7 Ao Asc Diam d 2.90 cm M: 2.6 - 3.4 LV EF Andrez 46.1 % FS 23.25 % LV Diastology MV E' medial 0.066 (>0.07 m/s) E/A Ratio 1.0 LV E/e MED 14.70 (<14) MV E Vmax 0.97 (0.4-1.3 m/s) MV E' lateral 0.102 (>0.1 m/s) MV A Vmax 0.95 (0.4-1.3 m/s) LV E/e LAT 9.50 (<14) MV E/A Ratio 1.01 MV E/E' medial 14.75 MV E/E' lateral 9.50 Aortic Valve LVOT Area 3.45 cm2 AoV Area Vmax 2.98 cm2 LVOT Vmax 1.02 m/s AoV Area/ BSA (Vmax) 1.20 cm2/m2 LVOT Mean Jose Ramon. 0.65 m/s HANANE Mean Jose Ramon. 2.61 cm2 LVOT Peak Grad 4.2 mmHg HANANE Mean Jose Ramon. Index 1.05 cm2/m2 LVOT Mean Grad 2.0 mmHg LVOT VTI 0.170 m LVOT Diam s 2.05 cm AoV Vmax 1.19 m/s Velocity Ratio 0.85 AoV Mean Jose Ramon. 0.86 m/s AoV Peak Grad 5.6 mmHg LVOT SV 58.72 mL AoV Mean Grad 3.2 mmHg AoV VTI 0.225 m AoV Area VTI 2.61 cm2 AoV Area/ BSA (VTI) 1.06 cm/m2 Mitral Valve MV DT 370 (160-240 msec) MR Vmax 4.79 m/s MV PHT 107 msec MR VTI 1.355 m MV Area PHT 2.05 cm2 MR Peak Grad 91.8 mmHg MV VTI 0.471 m MR Mean Grad 75.8 mmHg MV Area VTI 1.25 (4.0-6.0 cm2) Pulmonary Valve PV Vmax 1.39 (0.5-1.5 m/s) RVOT Peak Gr. 1.94 mmHg PV Peak Grad 7.7 mmHg RVOT Mean Gr. 1.00 mmHg PV Mean Grad 3.3 mmHg RVOT VTI 0.149 m PV VTI 0.251 m RVOT Vmax 0.70 m/s
[2021-01-19 07:15] LABS: Anion Gap 6.5 mmol/L (3-11); BUN 35 mg/dL (7-18); CO2 34.5 mmol/L (21.0-32.0); CREATININE 1.5 mg/dL (0.70-1.30); Calcium 9.1 mg/dL (8.5-10.1); Chloride 97 mmol/L (98-107); Estimated GFR 47.27 (mL/min/1.73m2); Glucose 131 mg/dL (74-106); Potassium 3.4 mmol/L (3.5-5.1); Sodium 138 mmol/L (136-145)
[2021-01-19 07:32] LABS: Calculated LDL 115 mg/dL (<100); Cholesterol 176 mg/dL (<200); HDL Cholesterol 43 mg/dL (40-60); Triglyceride 94 mg/dL (<150)
[2021-01-19 07:45] LABS: Hemoglobin A1C 5.9 % (<5.7)
[2021-01-19] MEDS: buPROPion-CR 150 MG TABCR PO (08:47)
[2021-01-19] MEDS: Tamsulosin 0.4 MG CAPCR PO (08:47)
[2021-01-19] MEDS: Aspirin E.C. 81 MG TABEC PO (08:47)
[2021-01-19] MEDS: Apixaban 5 MG TAB PO ×2 (08:48→20:24)
[2021-01-19] MEDS: Potassium Chloride 20 MEQ TABCR 40 MEQ PO (08:48)
[2021-01-19] MEDS: Metoprolol 50 MG TAB PO ×2 (08:48→20:24)
[2021-01-19] MEDS: Omeprazole 20 MG CAPCR PO (08:48)
[2021-01-19] MEDS: Amiodarone 200 MG TAB 100 MG PO (08:48)
--- NOTE | 2021-01-19 11:10 | PDOC.CMPRO ---
- If Service Date Differs Date of service: 01/19/21 Time of Service: 11:10 Care Management Progress Note S/O: Cristian was sitting in his chair eating lunch when CM met with him. He was alert and easily engaged in conversation. He reported to CM that his breathing is a bit better, however he continues to have a productive cough. Cristian had an Echo earlier today. CM will continue to support discharge planning needs. A: 65 year old male admitted to [facility] on 01/16/21 for Pulmonary Edema. P: Cristian will likely be discharged home with no new services when medically cleared by provider. He uses 02 at baseline, his supplier is [employer]. He will follow up with his PCP and discharge plan of care as prescribed. He will be transported home via private vehicle by family when ready. CM will continue to follow.
--- NOTE | 2021-01-19 11:50 | NS.NUTBLAN_ITS ---
Date of service: 01/19/21 Time of Service: 11:50 Nutritional Consult ASSESSMENT: Mr. Miner is admitted with CHF. He is ordered for heart healthy eating. His A1C is 5.9 c/w prediabetes. He also has a history that includes HLD, HTN, morbid obesity, and CAD. Weight was 140 kg on admission. Overall according to the documentation, his weight is trending up. Today he is 143 kg. He is 173 cm. His adjusted ideal body weight is 102 kg. Estimated energy needs are 1600 kcal/day for weight reduction (REE x 1.2- 1000kcal) Estimated protein needs are 102 g/day (1.0 g/kg/day for hospitalized patient) Estimated fluid needs: Per hospitalist given his clinical presentation NUTRITIONAL DIAGNOSIS: Knowledge deficit with regard to heart healthy, low sodium, weight management nutrition therapy. INTERVENTION: RD will visit with patient and his if he would like to review medical nutrition therapy for CHF, class 3 obesity, CAD. Will offer outpatient nutritional counseling should patient desire continued follow up for medical nutrition therapy. MONITORING AND EVALUATION: 1. Will monitor weight, PO, and nutritional status. 2. Will evaluate nutrition care plan ongoing and adjust as needed. Time Spent in Nutritional Counseling and Treatment: 0
--- NOTE | 2021-01-19 12:30 | PHA.REVIEW ---
Pharmacy Admission Review - Admission Clinical Review (Last Reviewed 01/16/21 @ 15:21 by Luis Moreno MD) Paroxysmal A-fib (Acute) Acute exacerbation of CHF (congestive heart failure) (Acute) No Known Allergies Allergy (Unverified 11/21/18 17:27) Resuscitation Status Full Code Height 5 ft 8 in Weight 143.8 kg - Renal Dosing Renal Dosing: BUN 35 mg/dL (7-18) H D 01/19/21 06:15 Creatinine 1.5 mg/dL (0.70-1.30) H 01/19/21 06:15 Medications needing adjustments: Reviewed (SCr: 1.5 CrCl ~70.3mL/min (using adjusted body weight)) List of meds needing interventions: Held Metolazone, Valsartan and Furosemide due to worsening renal function (SCr increased to 1.5 from 1.1). - Anticoagulation Anticoagulation: Hgb 14.5 g/dL (13.5-17.5) 01/17/21 07:09 Hct 43.4 % (40.0-50.0) 01/17/21 07:09 Plt Count 151 10^3/uL (130-400) 01/17/21 07:09 Creatinine 1.5 mg/dL (0.70-1.30) H 01/19/21 06:15 Therapeutic Anticoagulation: Reviewed Medications: Apixaban - Opiate Usage Evaluate Pain Scale/Pains Meds: Reviewed (No opiates used this admission.) Scheduled Bowel Reg ordered if on Opiates?: No - Relevant Labs Sodium 138 mmol/L (136-145) 01/19/21 06:15 Potassium 3.4 mmol/L (3.5-5.1) L 01/19/21 06:15 Chloride 97 mmol/L (98-107) L 01/19/21 06:15 Magnesium 2.2 mg/dL (1.8-2.4) 01/18/21 05:25 Electrolytes, C-Reactive P, ESR: Reviewed - DM Control DM Control: Glucose 131 mg/dL (74-106) H 01/19/21 06:15 Hemoglobin A1c 5.9 % (<5.7) H 01/19/21 06:15 Insulin Dosing: N/A - Heart Failure/OH Heart Failure/OH: Troponin I < 0.05 ng/mL (<0.06) 01/16/21 13:14 NT-Pro-B Natriuret Pep 166 pg/mL (<300) 01/18/21 05:25 EF%, LU's, B-Blockers, Diuretics: Reviewed (Metoprolol, Valsartan (held), Metolazone (held), Furosemide (held)) - BP Control BP Control: Blood Pressure 103/67 Blood Pressure 113/70 Blood Pressure 124/79 If elevated: Reviewed (Blood pressure low currently.) - Qtc Review If Elevated: Reviewed (QTc 544 on admission) List meds needing interventions: Patient is on amiodarone, but currently has telemetry. - IV to PO Switch IV Medications: Reviewed - Home Meds Home Med List reviewed: Reviewed Relevent Home Meds Not ordered & why?: Potassium 20mEq daily (had IV and dose increase PO, potassium levels normalized, now low again 3.4). - Current meds Current Medication Order Review: Reviewed - Comments Comments/Follow Ups: Continue to monitor potassium, blood pressure, renal function, labs, vitals and medication changes (avoid QTc prolonging medications).
--- NOTE | 2021-01-19 14:51 | W.NUTRFU ---
Date of service: 01/19/21 Time of Service: 14:51 Nutrition Note NOTE: Was able to spend some time with Cristian asking about his nutrition at home and brought up his elevated A1C in the conversation, which concerned him. He verbalized his PCP warning him of his climbing BS but denies family history of diabetes. We approached the topic of his weight and he verbalizes awareness of the risks of having excessive abdominal fat. He verbalizes that he doesn?t use the salt shaker at home and his has been consistent avoiding salt in preparing their meals. Lower knowledge of nutrition concepts was evident per our conversation. We reviewed sections of a handout for CHO consistent/HH diet therapy, which led into discussion about reading labels for added sugar, sodium, saturated fat and fiber content as some chiu areas to be aware of. Cristian was given contact info for outpt nutrition services and encouraged to talk to his about coming in together to go over more details and get help with shopping/menu planning. Reginald James NDTR ? agribusiness internship Time Spent in Nutritional Counseling and Treatment: 30 minutes
--- NOTE | 2021-01-19 16:00 | W.PM.PROGNOT ---
Date of Service Date of service: 01/19/21 Time of Service: 16:00 Assessment and Plan Assessment and plan (1) Acute exacerbation of CHF (congestive heart failure): Status: Acute Assessment and plan: Patient has had improvement in his overall LV function although we could not get adequate imaging to comment on his RWMA. He still needs a stress MPI w/ Lexiscan. I told Cristian that we will set this up as an outpatient. I will recheck his BMP in the morning and if we see adequate renal recovery then I will put him back on oral diuretic therapy. His home med list indicates that he takes lasix 60 mg daily however he says that he takes three 20 mg lasix in the morning and one 20 mg tablet around 4 pm. I told him that it does not make sense to take a higher dose for one time of the day and a lower dose later in the day. he ought to be on the dose that gets and adequate urine output. I will put him on torsemide which has better absorption and is better tolerated. I suspect that if he takes 60 mg lasix then he will need torsemide 20 mg bid. I will hold on any more zaroxolyn as his LVEF and his baseline kidney function is not bad. I will resume the Diovan when his kidney function improves and arrange outpatient Empagliflozin if his insurance will cover this. (2) Obstructive sleep apnea: Status: Chronic Assessment and plan: patient has CPAP at home. Patient's brought in his home CPAP unit. RT has checked the unit over and its not a recall unit therefore respiratory therapy will set him up with his home CPAP tonight (3) Hypertension: Status: Chronic Assessment and plan: Cont metoprolol. add low dose diovan to his regimen for his CHF Monitor. (4) CAD (coronary artery disease): Status: Chronic Assessment and plan: Cont BB, metoprolol, statin. Patient alleges chest discomfort when he presented w/ dyspnea however troponin I have been negative. He needs an updated stress MPI upon discharge once his CHF is stabilized. (5) Hyperlipidemia: Status: Chronic Assessment and plan: Currently on atorvastatin 40 mg daily.Last lipid profile within the hospital system was from March 04, 2020 demonstrated suboptimal control of his LDL at 108 with a low normal HDL 52 and normal triglyceride 148. I get a repeat fasting lipid profile as well as a glycohemoglobin A1c in the morning. (6) Paroxysmal A-fib: Status: Acute Assessment and plan: On Eliquis for AC. Cont Metoprolol and amiodarone Currently in sinus rhythm w/ BBB; no arrhythmias overnight. Rates in the 60's to 70's Telemetry. (7) Morbid obesity: Status: Chronic Assessment and plan: Risk factor given his co-morbidities. Subjective Subjective Interval history since last seen: Mr. Miner feels less dyspneic. He is now on room air w/ SPO2 of 91 ot 93%. However his wt has gone up 1 kg to 143.8 kg. I had to hold his diuretics and his Diovan d/t an acute rise in his BUN and creatinine to 35 and 1.5. This is probably a combination of his diuresis (zarxolyn and iv lasix) and the fact that he had a CT scan w/ contrast yesterday of his abdomen. I did this due to the fact that despite his leg edema improving he still felt bloated and I was concerned that he may have an intraabdominal process, i.e. mass or cirrhosis that may have contributed to his lower extremity edema other than right heart failure. His CT scan did not show any acute pathology. His echo while less than an optimal study, nevertheless showed improvement in his LV systolic function compared to 08/02/2018 when he had an LVEF of 45% w/ akinesis of his basal and mid inferior LV wall. His current echo demonstrated an LVEF of 50 to 55% however RWMA could not be assessed. Rv was no well visualized. I told Cristian that I am trying to maximize his CHF therapy by diursesis to a euvolemic standpoint and putting him on an ARB. He is already on aspirin and atorvastatin and takes lopressor and amiodarone for his PAF. I think that he ought to be on Jardiance (Empagliflozin) an SGLT2 inhibitor. Once his Diovan is maximized, then if we can not keep him out of CHF then he ought to be on Entresto. he already follows a fluid restriction diet at home limiting himself to half a gallon per day. Exam Narrative Exam Narrative: Morbidly obese white male sitting up in his chair able to talk in complete paragraphs without dyspnea. Neck is obese difficult to discern JVD. Lungs with bibasilar posterior rales without wheezing Heart is regular rate and rhythm no appreciable murmur rub. Chest wall with well-healed median sternotomy scar with no obvious deformity of his sternum. Abdomen is obese soft and nontender Lower extremities trace of pedal edema; slightly worse than yesterday Objective Last Vital Signs Temp 37.0 C 01/19/21 15:15 Pulse 66 01/19/21 15:15 Resp 20 01/19/21 15:15 BP 104/66 01/19/21 15:15 Pulse Ox 91 L 01/19/21 15:15 Laboratory Results - last 24 hr 01/18/21 01/19/21 01/19/21 15:54 06:15 06:15 Sodium 138 Potassium 4.0 D 3.4 L Chloride 97 L Carbon Dioxide 34.5 H Anion Gap 6.5 BUN 35 H D Creatinine 1.5 H Estimated GFR/1.73 m2 47.27 Glucose 131 H Hemoglobin A1c 5.9 H Calcium 9.1 Triglycerides 94 Total Cholesterol 176 LDL Cholesterol, Calc 115 H HDL Cholesterol 43
[2021-01-19] MEDS: Normal Saline Flush 10 ML SYR IVP (20:24)
[2021-01-19] MEDS: Atorvastatin 40 MG TAB PO (22:14)
[2021-01-19] MEDS: Magnesium Oxide 400 MG TAB PO (22:14)
[2021-01-20] VITALS (8 sets, daily range): BP systolic 106–126; BP diastolic 60–87; PULSE 58–73; RESP 4–20; TEMP 36.4–36.6; O2SAT 92–98
--- NOTE | 2021-01-20 | DI.RAD_ITS ---
Exam(s) XR CHEST 2V PA LATERAL EXAM: XR CHEST 2V PA LATERAL CLINICAL HISTORY: dyspnea, cough, r/o pneumonia vs CHF TECHNIQUE: 2D digital imaging was performed of the chest. Two images were obtained. PA and lateral views were obtained. COMPARISON: CR XR PORTABLE CHEST AP from 01/16/2021 FINDINGS: MEDIASTINUM: Normal. HEART: Cardiomegaly. Mitral valve replacement. PULMONARY VASCULATURE: Normal. LUNGS: No focal consolidating infiltrate. Mildly prominent interstitial markings particularly the pe rihilar region. PLEURAL SPACE: No pleural effusion or pneumothorax. BONE:Within normal limits for the patient's age. Sternal wires. OTHER FINDINGS:Normal. IMPRESSION: 1. Mildly prominent interstitium which may reflect edema or pneumonia. Please correlate clinically. 2. No focal consolidating infiltrate. DATA REPOSITORY: RADIATION DOSE DELIVERED:
[2021-01-20 07:33] LABS: Anion Gap 4.4 mmol/L (3-11); BUN 33 mg/dL (7-18); CO2 33.6 mmol/L (21.0-32.0); CREATININE 1.2 mg/dL (0.70-1.30); Calcium 8.7 mg/dL (8.5-10.1); Chloride 100 mmol/L (98-107); Glucose 123 mg/dL (74-106); NT-proBNP 121 pg/mL (<300); Sodium 138 mmol/L (136-145)
[2021-01-20] MEDS: buPROPion-CR 150 MG TABCR PO (07:43)
[2021-01-20] MEDS: Omeprazole 20 MG CAPCR PO (07:43)
[2021-01-20] MEDS: Metoprolol 50 MG TAB PO ×2 (07:43→19:58)
[2021-01-20] MEDS: Apixaban 5 MG TAB PO ×2 (07:43→19:58)
[2021-01-20] MEDS: Aspirin E.C. 81 MG TABEC PO (07:43)
[2021-01-20] MEDS: Amiodarone 200 MG TAB 100 MG PO (07:44)
[2021-01-20] MEDS: Tamsulosin 0.4 MG CAPCR PO (07:44)
--- NOTE | 2021-01-20 08:20 | PDOC.CMPRO ---
- If Service Date Differs Date of service: 01/20/21 Time of Service: 08:20 Care Management Progress Note S/O: Cristian was sitting up in his chair when CM met with him. He was alert, oriented and easily engaged in conversation. He is anticipating being discharged home tomorrow. CM checked with his pharmacy today and his new medications are covered by his insurance per [employer], despite a $3 copay. A: 65 year old male admitted to [facility] on 01/16/21 for Pulmonary Edema. P: Cristian will likely be discharged home with no new services when medically cleared by provider. He uses 02 at baseline, his supplier is [employer]. He will follow up with his PCP and discharge plan of care as prescribed. He will be transported home via private vehicle by family when ready. CM will continue to follow.
[2021-01-20] MEDS: Torsemide 20 MG TAB PO (08:40)
[2021-01-20] MEDS: Potassium Chloride 20 MEQ TABCR 40 MEQ PO ×3 (08:41→19:58)
[2021-01-20 09:16] LABS: Magnesium 2.4 mg/dL (1.8-2.4)
--- NOTE | 2021-01-20 13:20 | PGE_ITS ---
Date of Service Date of service: 01/20/21 Time of Service: 13:20 Assessment and Plan Assessment and plan (1) Acute exacerbation of CHF (congestive heart failure): Status: Acute Assessment and plan: Patient previously been diagnosed with ischemic cardiomyopathy with HFrEF with an EF of 40 to 45%. Current echocardiogram shows improvement with an EF of 50 to 55%. However current echocardiogram could not characterize any regional wall motion abnormalities. Patient needs a follow-up stress MPI to rule out any residual ischemic heart disease. He was ruled out for ACS this admission with negative troponin levels. Currently tolerating his treatment with Diovan. He is being transitioned from IV and/or p.o. Lasix to oral torsemide. He is starting torsemide 20 mg p.o. twice daily. He is receiving potassium supplementation as well as being started on low-dose spironolactone. We will continue to monitor his electrolytes and recheck his BMP in the morning. His proBNP is normalized. I will have his insurance check to see if they will cover Diovan and empagliflozin and torsemide. (2) Obstructive sleep apnea: Status: Chronic Assessment and plan: patient has CPAP at home. Patient's brought in his home CPAP unit. RT has checked the unit over and its not a recall unit therefore respiratory therapy will set him up with his home CPAP tonight (3) Hypertension: Status: Chronic Assessment and plan: Cont metoprolol. add low dose diovan and low-dose spironolactone to his regimen for his CHF. Will check to see if his insurance will cover empagliflozin. Monitor. (4) CAD (coronary artery disease): Status: Chronic Assessment and plan: Cont BB, metoprolol, statin. Patient alleges chest discomfort when he presented w/ dyspnea however troponin I have been negative. He needs an updated stress MPI upon discharge once his CHF is stabilized. (5) Hyperlipidemia: Status: Chronic Assessment and plan: Currently on atorvastatin 40 mg daily.Last lipid profile within the hospital system was from March 04, 2020 demonstrated suboptimal control of his LDL at 108 with a low normal HDL 52 and normal triglyceride 148. I get a repeat fasting lipid profile as well as a glycohemoglobin A1c in the morning. (6) Paroxysmal A-fib: Status: Acute Assessment and plan: On Eliquis for AC. Cont Metoprolol and amiodarone Currently in sinus rhythm w/ BBB; no arrhythmias overnight. Rates in the 60's to 70's Telemetry. (7) Morbid obesity: Status: Chronic Assessment and plan: Risk factor given his co-morbidities. (8) Discharge planning issues: Status: Acute Assessment and plan: We will plan for discharge tomorrow morning pending results of his repeat electrolytes. We will set him up for outpatient stress MPI Lexiscan study. Subjective Subjective Interval history since last seen: Mr. Miner is been doing markedly better from a heart standpoint. He has been walking laps around the hospital without requ iring any supplemental oxygen. His only complaint is some nasal congestion which cleared with saline. I will put him on some Flonase. We are working on maximizing his heart failure treatment. His echo from yesterday showed improvement in his LV function which is now up to an EF of 50 to 55% although it was a poor quality study and they could not characterize any regional wall motion abnormalities. I told Cristian that he will need to have an outpatient stress MPI with Lexiscan which we will set up next week. I am transitioning him over from IV Lasix to torsemide. His potassium was low at 3.0 again this morning and is getting oral supplementation. I will add low-dose spironolactone to his regimen. He remains on Diovan twice a day. He is on metoprolol and amiodarone for his atrial fibrillation. Currently remains in sinus rhythm at a controlled rate in the high 50s to low 60s. Patient's weight is up slightly today at 144 kg. I am not sure how accurate the weights are from day to day. He continues to show a negative fluid balance. Even though he had to hold his Lasix yesterday because of slight azotemia his fluid balance yesterday was still net -230 mL. His azotemia has resolved. His creatinine is down to 1.2. I think he may have had some slight ATN secondary to the contrast used to do his CTA of his abdomen. I have asked care management to send prescriptions into his pharmacy at [facility] to see if they will cover the medications on 1 of put him on for his CHF which includes Diovan, torsemide, empagliflozin. Exam Narrative Exam Narrative: Morbidly obese white male sitting up in his chair able to talk in complete paragraphs without dyspnea. Neck is obese difficult to discern JVD. Patient was seen earlier this morning walking the hallways without any significant dyspnea. Lungs clear to auscultation without wheezes rales or rhonchi Heart is regular rate and rhythm no appreciable murmur rub. Abdomen is obese soft and nontender Lower extremities trace of pedal edema; no worse than yesterday Objective Last Vital Signs Temp 36.6 C 01/20/21 08:35 Pulse 62 01/20/21 08:55 Resp 18 01/20/21 08:35 BP 106/60 01/20/21 08:35 Pulse Ox 94 01/20/21 08:35 Laboratory Results - last 24 hr 01/20/21 06:06 Sodium 138 Potassium 3.0 L Chloride 100 Carbon Dioxide 33.6 H Anion Gap 4.4 BUN 33 H Creatinine 1.2 Estimated GFR/1.73 m2 >= 60.00 Glucose 123 H Calcium 8.7 Magnesium 2.4 NT-Pro-B Natriuret Pep 121
[2021-01-20] MEDS: Spironolactone 50 MG TAB 25 MG PO (13:53)
--- NOTE | 2021-01-20 14:34 | CHAPLAIN ---
Cristian was up in a chair watching tv when I visited. He is from [facility], and mostly interested in getting home. He wasn't sure how many days he's been here, but said too long. He's kept in touch with family by phone, and maybe visits too but he didn't mention that. He was not interested in a longer conversation.
[2021-01-20] MEDS: Fluticasone NASAL SPRAY 16 GM BTL NS (15:10)
[2021-01-20] MEDS: Normal Saline Flush 10 ML SYR IVP (18:38)
[2021-01-20] MEDS: Bumetanide 1 MG/4 ML VIAL 2 MG IVP (18:38)
[2021-01-20] MEDS: Levalbuterol 0.63 MG/3 ML UPD VIAL UPD (18:38)
[2021-01-20] MEDS: Torsemide 20 MG TAB 40 MG PO (19:58)
[2021-01-20] MEDS: predniSONE 20 MG TAB 40 MG PO (19:58)
[2021-01-20] MEDS: Levalbuterol 1.25 MG/3 ML UPD VIAL UPD (19:59)
--- NOTE | 2021-01-20 21:00 | DI.VRAD_ITS ---
PROCEDURE INFORMATION: Exam: XR Chest Exam date and time: 01/20/2021 7:23 PM Age: 65 years old Clinical indication: Other: Dyspnea, cough, R/O pneumonia vs chf; Prior surgery; Surgery date: 6+ months; Surgery type: Open heart TECHNIQUE: Imaging protocol: XR of the chest. Views: 2 views. COMPARISON: CR XR PORTABLE CHEST AP 01/16/2021 10:13 AM FINDINGS: Lungs: No large consolidation. Prominent perihilar linear opacities may represent vascular congestion versus mild interstitial infection. No leroy pulmonary edema. Pleural spaces: No pleural effusion. No pneumothorax. Heart/Mediastinum: Cardiomegaly is noted. There is evidence of prior cardiac valvular repair. Bones/joints: Sternotomy wires are noted. No evidence of acute displaced rib fracture. IMPRESSION: 1. No large consolidation. 2. Prominent perihilar linear opacities may represent vascular venous congestion which could be cardiogenic in nature or represent mild interstitial infection. Correlate with clinical findings. Dictated and Authenticated by: Yoselyn Vincent MD. Ordering:[facility] Toñito Suarez MD
[2021-01-20] MEDS: Atorvastatin 40 MG TAB PO (21:38)
[2021-01-20] MEDS: Magnesium Oxide 400 MG TAB PO (21:38)
--- NOTE | 2021-01-20 21:45 | RT.EKG_ITS ---
APPROVED REPORT Exam: Resting ECG Reason for Exam: dyspnea Patient Location: I HR:73 bpm ECG Measurements Heart Rate 73 AXIS KS 207 P 56 QRSd 137 QRS 59 QT 440 T [id number] QTc 486 Conclusion Sinus rhythm...normal P axis, V-rate 60- 99 Nonspecific intraventricular conduction delay...QRSd >115mS, not LBBB/RBBB Inferior infarct, old...Q >35mS, II III aVF Nonspecific T abnormalities, lateral leads...T <-0.10mV, I aVL V5 V6
[2021-01-20] MEDS: DOXYCYCLINE 100 MG in Normal Saline 100 ML IVPB (21:58)
[2021-01-20 22:48] LABS: Troponin I < 0.05 ng/mL (<0.06)
[2021-01-21] VITALS (11 sets, daily range): BP systolic 104–121; BP diastolic 65–80; PULSE 59–75; RESP 1–19; TEMP 36–37.2; O2SAT 91–95
[2021-01-21 07:34] LABS: Anion Gap 5.3 mmol/L (3-11); BUN 34 mg/dL (7-18); CO2 35.7 mmol/L (21.0-32.0); CREATININE 1.6 mg/dL (0.70-1.30); Calcium 8.9 mg/dL (8.5-10.1); Chloride 98 mmol/L (98-107); Estimated GFR 43.87 (mL/min/1.73m2); Glucose 189 mg/dL (74-106); NT-proBNP 229 pg/mL (<300); Potassium 3.4 mmol/L (3.5-5.1); Sodium 139 mmol/L (136-145)
[2021-01-21] MEDS: Fluticasone NASAL SPRAY 16 GM BTL NS (07:37)
[2021-01-21] MEDS: Apixaban 5 MG TAB PO ×2 (07:37→19:46)
[2021-01-21] MEDS: Tamsulosin 0.4 MG CAPCR PO (07:37)
[2021-01-21] MEDS: Omeprazole 20 MG CAPCR PO (07:37)
[2021-01-21] MEDS: buPROPion-CR 150 MG TABCR PO (07:37)
[2021-01-21] MEDS: Spironolactone 25 MG TAB PO (07:37)
[2021-01-21] MEDS: Aspirin E.C. 81 MG TABEC PO (07:37)
[2021-01-21] MEDS: Metoprolol 50 MG TAB PO ×2 (07:37→19:46)
[2021-01-21] MEDS: Torsemide 20 MG TAB 40 MG PO ×2 (07:38→19:45)
[2021-01-21] MEDS: predniSONE 20 MG TAB 40 MG PO (07:38)
[2021-01-21] MEDS: Amiodarone 200 MG TAB 100 MG PO (07:38)
[2021-01-21] MEDS: Normal Saline Flush 10 ML SYR IVP ×2 (07:38→19:43)
[2021-01-21] MEDS: Potassium Chloride 20 MEQ TABCR 40 MEQ PO (07:38)
[2021-01-21] MEDS: Levalbuterol 1.25 MG/3 ML UPD VIAL UPD ×4 (07:56→19:44)
--- NOTE | 2021-01-21 08:58 | CMPROGNOTE_ITS ---
- If Service Date Differs Date of service: 01/21/21 Time of Service: 08:59 Care Management Progress Note S/O: Cristian was sitting up in a chair when CM met with him. He was pleasant and agreeable to conversation. Cristian stated that he is feeling better today and is hopeful that he will soon be ready for discharge. Cristian shared that he had Covid a couple of months ago and has had increased difficulty with his breathing. He informed CM that he does use oxygen at home prn but when he had Covid he used it almost all of the time. Cristian denied the need for services at discharge. A: 65 year old male admitted to [facility] on 01/16/21 for Pulmonary Edema. P: Cristian will likely be discharged home with no new services when medically cleared by provider. He uses 02 at baseline, his supplier is [employer]. He will follow up with his PCP and discharge plan of care as prescribed. He will be transported home via private vehicle by family when ready. CM will continue to follow.
--- NOTE | 2021-01-21 10:12 | PGE_ITS ---
Date of Service Date of service: 01/21/21 Time of Service: 10:12 Assessment and Plan Assessment and plan (1) Acute exacerbation of CHF (congestive heart failure): Status: Acute Assessment and plan: Continue diuresis along with Diovan and Spironolactone. monitor weights, I/O and BMP. continue his metoprolol and amiodarone for his PAF (he is also on apixaban for anticoagulation) CM informed me yesterday that his insurance will cover empagliflozin at $3 for 30 days. They will also cover his torsemide and diovan. Qualifiers: Heart failure type: combined systolic and diastolic Qualified Code(s): I50.43 - Acute on chronic combined systolic (congestive) and diastolic (congestive) heart failure (2) Acute bronchitis: Status: Acute Assessment and plan: patient expectorated a purulent sputum and gram stain is showing GPC and many WBC. He was started on Rocephin and doxycycline last night. Await culture results. Also was begun on xopenex and prednisone. Qualifiers: Bronchitis organism: unspecified organism Qualified Code(s): J20.9 - Acute bronchitis, unspecified (3) Obstructive sleep apnea: Status: Chronic Assessment and plan: continue home CPAP (4) Hypertension: Status: Chronic Assessment and plan: Cont metoprolol. add low dose diovan and low-dose spironolactone to his regimen for his CHF. Monitor. Qualifiers: Hypertension type: primary hypertension Qualified Code(s): I10 - Essential (primary) hypertension (5) CAD (coronary artery disease): Status: Chronic Assessment and plan: Cont BB, metoprolol, statin. No CP w/ ambulation but gets dyspneic and starts wheezing. I think that this is no ischemia but rather some bronchospasms along w/ an incipient respiratory infection. However, he needs follow up stress MPI but not now while he is under treatment for CHF and bronchitis (6) Hyperlipidemia: Status: Chronic Assessment and plan: Currently on atorvastatin 40 mg daily.Last lipid profile within the hospital system was from March 04, 2020 demonstrated suboptimal control of his LDL at 108 with a low normal HDL 52 and normal triglyceride 148. I get a repeat fasting lipid profile as well as a glycohemoglobin A1c in the morning. (7) Paroxysmal A-fib: Status: Acute Assessment and plan: On Eliquis for AC. Cont Metoprolol and amiodarone Currently in sinus rhythm w/ BBB; no arrhythmias overnight. Rates in the 60's to 70's Telemetry. (8) Morbid obesity: Status: Chronic Assessment and plan: Risk factor given his co-morbidities. (9) Discharge planning issues: Status: Acute Assessment and plan: dc delayed while I treat his LRI and bronchospasms Subjective Subjective Interval history since last seen: Mr. Miner still feels that he is wheezing and short of breath although less so than last night. He has been coughing up some purulent sputum. He is afebrile. His weight is down to 142 kg which is a 1.3 kg drop from 3 days ago. proBNP rem ains normal although it has gone up slightly to 229. Last night I rechecked an EKG and a troponin and he showed no ischemic changes and his troponin was normal. He has no chest pain with his dyspnea and wheezing. Last night I started him on some prednisone along with ceftriaxone and doxycycline for what appears to be purulent bronchitis and possibly an incipient pneumonia. Sputum Gram stain showed rare epithelial cells many white cells and few gram-positive cocci. Exam Narrative Exam Narrative: Morbidly obese white male whose sitting up in his chair watching TV. He is able to talk in complete paragraphs and is not using his accessory respiratory muscles. Chest is barrel chested with some end expiratory wheezes diffusely but heard mostly anteriorly. Posteriorly has some basilar rales Heart is regular rate and rhythm with distant heart tones Abdomen is obese soft and nontender Legs with trace of pitting edema over the lower pretibial surfaces. Objective Last Vital Signs Temp 36.0 C L 01/21/21 07:19 Pulse 75 01/21/21 07:45 Resp 18 01/21/21 07:19 BP 117/80 01/21/21 07:19 Pulse Ox 92 01/21/21 07:19 Laboratory Results - last 24 hr 01/20/21 01/21/21 22:15 06:20 Sodium 139 Potassium 3.4 L Chloride 98 Carbon Dioxide 35.7 H Anion Gap 5.3 BUN 34 H Creatinine 1.6 H Estimated GFR/1.73 m2 43.87 Glucose 189 H Calcium 8.9 Troponin I < 0.05 NT-Pro-B Natriuret Pep 229
[2021-01-21] MEDS: DOXYCYCLINE 100 MG in Normal Saline 100 ML IVPB ×2 (10:47→21:26)
[2021-01-21] MEDS: Normal Saline 500 ML 30 ML IV (10:47)
[2021-01-21 10:53] LABS: C-Reactive Protein 0.75 mg/dL (0.0-0.3)
[2021-01-21 11:16] LABS: Procalcitonin < 0.1 ng/mL
[2021-01-21] MEDS: Acetaminophen 325 MG TAB PO (18:37)
[2021-01-21] MEDS: cefTRIAXone 2 GM/50 ML BAG 100 GM (19:43)
[2021-01-21] MEDS: Rosuvastatin 10 MG TAB 20 MG PO (19:45)
[2021-01-21] MEDS: Ondansetron O.D.T. 4 MG TABEF PO (19:45)
[2021-01-21] MEDS: Magnesium Oxide 400 MG TAB PO (21:26)
[2021-01-22] VITALS (10 sets, daily range): BP systolic 100–137; BP diastolic 63–79; PULSE 58–72; RESP 1–19; TEMP 36.4–36.6; O2SAT 92–96
[2021-01-22 06:53] LABS: BUN 38 mg/dL (7-18); CREATININE 1.7 mg/dL (0.70-1.30); Calcium 8.8 mg/dL (8.5-10.1); Chloride 100 mmol/L (98-107); Estimated GFR 40.91 (mL/min/1.73m2); Glucose 130 mg/dL (74-106); NT-proBNP 247 pg/mL (<300); Potassium 3.3 mmol/L (3.5-5.1); Sodium 141 mmol/L (136-145)
[2021-01-22] MEDS: Sodium Chloride-Nasal SPRAY-ADULT 44 ML BTL NS (08:06)
[2021-01-22] MEDS: Levalbuterol 1.25 MG/3 ML UPD VIAL UPD ×4 (08:06→19:36)
[2021-01-22] MEDS: Aspirin E.C. 81 MG TABEC PO (08:07)
[2021-01-22] MEDS: Fluticasone NASAL SPRAY 16 GM BTL NS (08:07)
[2021-01-22] MEDS: Tamsulosin 0.4 MG CAPCR PO (08:08)
[2021-01-22] MEDS: predniSONE 20 MG TAB 40 MG PO (08:08)
[2021-01-22] MEDS: buPROPion-CR 150 MG TABCR PO (08:08)
[2021-01-22] MEDS: Omeprazole 20 MG CAPCR PO (08:08)
[2021-01-22] MEDS: Amiodarone 200 MG TAB 100 MG PO (08:09)
[2021-01-22] MEDS: Apixaban 5 MG TAB PO ×2 (08:10→19:35)
[2021-01-22] MEDS: Metoprolol 50 MG TAB PO ×2 (08:11→19:35)
--- NOTE | 2021-01-22 08:54 | PDOC.CMPRO ---
- If Service Date Differs Date of service: 01/22/21 Time of Service: 08:54 Care Management Progress Note S/O: Cristian was sitting up in a chair when CM met with him. He remains in good spirits but shared that he has been nauseated. He stated that it started last evening. He was better during the night but the nausea returned this morning. In addition, his BUN and creatinine bumped up a bit. While he very much wants to go home, Cristian informed CM that he wants to be better first. Plans to transition him to an oral antibiotic have been delayed until tomorrow. If his nausea improves and his renal function stabilizes, it is likely he will be discharged tomorrow A: 65 year old male admitted to [facility] on 01/16/21 for Pulmonary Edema. P: Cristian will likely be discharged home with no new services when medically cleared by provider. He uses 02 at baseline, his supplier is [employer]. He will follow up with his PCP and discharge plan of care as prescribed. He will be transported home via private vehicle by family when ready. CM will continue to follow.
[2021-01-22] MEDS: Potassium Chloride 20 MEQ TABCR PO ×3 (09:23→19:35)
--- NOTE | 2021-01-22 09:27 | PGE_ITS ---
Date of Service Date of service: 01/22/21 Time of Service: 09:27 Assessment and Plan Assessment and plan (1) Acute exacerbation of CHF (congestive heart failure): Status: Acute Assessment and plan: I had put his Diovan and his torsemide on hold. I think he is actually been over diuresed and this may be contributing to his nausea. He is borderline hypotensive. I been given a judicious fluid bolus of 250 mL of normal saline and see if this improves his blood pressure and nausea. Repeat his BMP in the morning and if his azotemia has improved we will send him home on a reduced dose of torsemide 20 mg twice daily and discontinue his Zaroxolyn. He will be sent home on low-dose Diovan with repeat labs as an outpatient. He will need to be scheduled for an outpatient stress MPI Lexiscan next week. Qualifiers: Heart failure type: combined systolic and diastolic Qualified Code(s): I50.43 - Acute on chronic combined systolic (congestive) and diastolic (congestive) heart failure (2) Acute bronchitis: Status: Acute Assessment and plan: Continue antibiotics but I think we can switch her from Rocephin and doxycycline To oral doxycycline and and either Augmentin or Omnicef. Qualifiers: Bronchitis organism: unspecified organism Qualified Code(s): J20.9 - Acute bronchitis, unspecified (3) Obstructive sleep apnea: Status: Chronic Assessment and plan: continue home CPAP (4) Hypertension: Status: Chronic Assessment and plan: Cont metoprolol. Diovan and spironolactone on hold. Qualifiers: Hypertension type: primary hypertension Qualified Code(s): I10 - Essential (primary) hypertension (5) CAD (coronary artery disease): Status: Chronic Assessment and plan: Cont BB, metoprolol, statin. No CP w/ ambulation but gets dyspneic and starts wheezing. I think that this is no ischemia but rather some bronchospasms along w/ an incipient respiratory infection. However, he needs follow up stress MPI but not now while he is under treatment for CHF and bronchitis (6) Hyperlipidemia: Status: Chronic Assessment and plan: Currently on atorvastatin 40 mg daily.Last lipid profile within the hospital system was from March 04, 2020 demonstrated suboptimal control of his LDL at 108 with a low normal HDL 52 and normal triglyceride 148. I get a repeat fasting lipid profile as well as a gly cohemoglobin A1c in the morning. (7) Paroxysmal A-fib: Status: Acute Assessment and plan: On Eliquis for AC. Cont Metoprolol and amiodarone Currently in sinus rhythm w/ BBB; no arrhythmias overnight. Rates in the 60's to 70's Telemetry. (8) Morbid obesity: Status: Chronic Assessment and plan: Risk factor given his co-morbidities. (9) Discharge planning issues: Status: Acute Assessment and plan: dc delayed while I treat his LRI and bronchospasms and correct his azotemia Subjective Subjective Interval history since last seen: Patient had some nausea with some emesis last night. This morning he did eat breakfast with no emesis. Blood pressures running a little soft this morning 100/63 I put his Diovan and his diuretics on hold. He is showing some prerenal azotemia with a BUN of 38 creatinine 1.7. I think he is been over diuresed. His potassium is down to 3.3 which were given of some oral supplementation. He continues to receive Rocephin and doxycycline for an acute peribronchitis. Sputum is described normal oral tha. He has no leukocytosis no fever. Cough is lessened today. He is on prednisone in addition to as needed bronchodilators. I told Cristian that I like to watch him today and monitor his renal function. Replace his potassium and make sure that he is tolerating a diet before he goes home. I would like to see his renal function stabilized before I resume his diuretics. Exam Narrative Exam Narrative: Middle-aged white male who is morbidly obese sitting up in his chair. Not in any respiratory distress. He is alert and oriented person place time circumstance. Chest is barrel chested he has no rales he has some faint end expiratory wheezes anteriorly but is clear posteriorly. Heart is regular rate and rhythm. Abdomen is obese soft and nontender to palpation. Legs are without peripheral edema. Objective Last Vital Signs Temp 36.5 C 01/22/21 07:46 Pulse 64 01/22/21 07:46 Resp 18 01/22/21 07:46 BP 100/63 01/22/21 07:46 Pulse Ox 92 01/22/21 07:46 Laboratory Results - last 24 hr 01/21/21 01/21/21 01/22/21 06:20 06:20 06:20 Sodium 141 Potassium 3.3 L Chloride 100 Carbon Dioxide 35.0 H Anion Gap 6.0 BUN 38 H Creatinine 1.7 H Estimated GFR/1.73 m2 40.91 Glucose 130 H Calcium 8.8 C-Reactive Protein 0.75 H NT-Pro-B Natriuret Pep 247 Procalcitonin < 0.1
[2021-01-22] MEDS: DOXYCYCLINE 100 MG in Normal Saline 100 ML IVPB ×2 (10:04→21:09)
[2021-01-22] MEDS: Ondansetron O.D.T. 4 MG TABEF PO (10:10)
[2021-01-22] MEDS: Normal Saline 250 ML 125 ML IV (10:56)
[2021-01-22 14:36] LABS: Streptococcus Pneumoniae Ag, U Negative (Negative)
[2021-01-22] MEDS: Acetaminophen 325 MG TAB PO (19:10)
[2021-01-22] MEDS: Rosuvastatin 10 MG TAB 20 MG PO (19:35)
[2021-01-22] MEDS: Normal Saline Flush 10 ML SYR IVP (19:36)
[2021-01-22] MEDS: cefTRIAXone 2 GM/50 ML BAG 100 GM (19:37)
[2021-01-22] MEDS: Magnesium Oxide 400 MG TAB PO (21:09)
[2021-01-23] VITALS (8 sets, daily range): BP systolic 100–137; BP diastolic 61–88; PULSE 55–64; RESP 1–18; TEMP 36.5–36.6; O2SAT 93–97
--- NOTE | 2021-01-23 | DI.US_ITS ---
Exam(s) US RENAL EXAM: US RENAL CLINICAL HISTORY: JASPER. TECHNIQUE: [place] scale, color and spectral Doppler were used. COMPARISON: No exams were available for comparison FINDINGS: Renal size in cm: Right: 12.5. Left: 11.9. Echogenicity: Normal. Hydronephrosis: No. Cyst or mass: No. Nephrolithiasis: No. Other findings: None. Bladder:Normal. Ureteral jets: Right: Not visualized on this examination. Left: Not visualized on this examination. Prevoid vol:66 cc Postvoid vol:0 cc Renal color flow: Symmetric and within normal limits. IMPRESSION: No evidence of nephrolithiasis or hydronephrosis. DATA REPOSITORY:
[2021-01-23 07:19] LABS: Anion Gap 6.6 mmol/L (3-11); BUN 43 mg/dL (7-18); CO2 33.4 mmol/L (21.0-32.0); CREATININE 1.7 mg/dL (0.70-1.30); Calcium 8.7 mg/dL (8.5-10.1); Chloride 100 mmol/L (98-107); Estimated GFR 40.91 (mL/min/1.73m2); Glucose 104 mg/dL (74-106); Potassium 3.4 mmol/L (3.5-5.1); Sodium 140 mmol/L (136-145)
[2021-01-23] MEDS: Aspirin E.C. 81 MG TABEC PO (07:50)
[2021-01-23] MEDS: Fluticasone NASAL SPRAY 16 GM BTL NS (07:50)
[2021-01-23] MEDS: Levalbuterol 1.25 MG/3 ML UPD VIAL UPD ×2 (07:50→20:09)
[2021-01-23] MEDS: buPROPion-CR 150 MG TABCR PO (07:51)
[2021-01-23] MEDS: Omeprazole 20 MG CAPCR PO (07:51)
[2021-01-23] MEDS: Amiodarone 200 MG TAB 100 MG PO (07:51)
[2021-01-23] MEDS: predniSONE 20 MG TAB 40 MG PO (07:51)
[2021-01-23] MEDS: Apixaban 5 MG TAB PO ×2 (07:51→20:09)
[2021-01-23] MEDS: Metoprolol 50 MG TAB PO ×2 (07:51→20:09)
[2021-01-23] MEDS: Tamsulosin 0.4 MG CAPCR PO (07:51)
[2021-01-23] MEDS: Acetaminophen 325 MG TAB PO ×3 (07:56→22:35)
--- NOTE | 2021-01-23 08:30 | CMPROGNOTE_ITS ---
- If Service Date Differs Date of service: 01/23/21 Time of Service: 08:30 Care Management Progress Note S/O: Cristian was sitting up in a chair when CM met with him. He was pleasant, as usual, and stated that the nausea is better, but not gone. He had a renal ultrasound today that was negative for nephrolithiasis and hydronephrosis. Cristian has been ambulating in the halls and visiting with staff. A: 65 year old male admitted to [facility] on 01/16/21 for Pulmonary Edema. P: Cristian will likely be discharged home with no new services when medically cleared by provider. He uses 02 at baseline, his supplier is [employer]. He will follow up with his PCP and discharge plan of care as prescribed. He will be transported home via private vehicle by family when ready. CM will continue to follow.
[2021-01-23] MEDS: Normal Saline 250 ML 125 ML IV (08:50)
--- NOTE | 2021-01-23 08:57 | W.PM.PROGNOT ---
Date of Service Date of service: 01/23/21 Time of Service: 08:58 Assessment and Plan Assessment and plan (1) Prerenal azotemia: Status: Acute Assessment and plan: Patient was initially over diuresed between his Zaroxolyn and loop diuretic and then getting put on Diovan. He also had a CT scan of his abdomen that probably contributed to his azotemia by causing mild ATN. BUN and creatinine been slow to come down. I watch him overnight and give him some more IV fluids and repeat his labs in the morning. (2) Acute exacerbation of CHF (congestive heart failure): Status: Acute Assessment and plan: Currently out of acute congestive failure as evidenced by normalized BNP as well as lack of leg edema. Continue to hold diuretics and repeat his BMP in the morning. Qualifiers: Heart failure type: combined systolic and diastolic Qualified Code(s): I50.43 - Acute on chronic combined systolic (congestive) and diastolic (congestive) heart failure (3) Acute bronchitis: Status: Acute Assessment and plan: Discontinue IV Rocephin and doxycycline. Switch to p.o. doxycycline for 3 more days. Continue prednisone for 3 more days and use of Xopenex Qualifiers: Bronchitis organism: unspecified organism Qualified Code(s): J20.9 - Acute bronchitis, unspecified (4) Obstructive sleep apnea: Status: Chronic Assessment and plan: continue home CPAP (5) Hypertension: Status: Chronic Assessment and plan: Cont metoprolol. Diovan and spironolactone on hold. Qualifiers: Hypertension type: primary hypertension Qualified Code(s): I10 - Essential (primary) hypertension (6) CAD (coronary artery disease): Status: Chronic Assessment and plan: Cont BB, metoprolol, statin. No CP w/ ambulation but gets dyspneic and starts wheezing. I think that this is no ischemia but rather some bronchospasms along w/ an incipient respiratory infection. However, he needs follow up stress MPI but not now while he is under treatment for CHF and bronchitis (7) Hyperlipidemia: Status: Chronic Assessment and plan: Currently on atorvastatin 40 mg daily.Last lipid profile within the hospital system was from March 04, 2020 demonstrated suboptimal control of his LDL at 108 with a low normal HDL 52 and normal triglyceride 148. I get a repeat fasting lipid profile as well as a glycohemoglobin A1c in the morning. (8) Paroxysmal A-fib: Status: Acute Assessment and plan: On Eliquis for AC. Cont Metoprolol and amiodarone Currently in sinus rhythm w/ BBB; no arrhythmias overnight. Rates in the 60's to 70's Telemetry. (9) Morbid obesity: Status: Chronic Assessment and plan: Risk factor given his co-morbidities. (10) Discharge planning issues: Status: Acute Assessment and plan: dc delayed while I treat his LRI and bronchospasms and correct his azotemia Subjective Subjective Interval history since last seen: Patient is feeling better today he denies any dyspnea no nausea today. I would have released him today unfortunately his BUN/creatinine remain elevated despite the IV fluid bolus yesterday. BUN is up to 43 creatinine is 1.7 despite holding his torsemide, spironolactone and his Diovan. He received normal saline 250 mL last night. I will repeat the same this morning and recheck his labs this afternoon if his BUN and creatinine are down to reasonable level probably discharge him this afternoon if not he will need to remain overnight for more fluids. With respect to his bronchitis that is doing better he is not wheezing and coughing and he is not running a fever and not bringing up any purulent mucus. Exam Narrative Exam Narrative: Obese white male who is alert oriented person place time circumstance. Barrel chested with clear lung sounds Heart regular rate and rhythm Abdomen is obese soft and nontender Legs without pitting edema I can palpate his tibia Objective Last Vital Signs Temp 36.6 C 01/23/21 07:24 Pulse 62 01/23/21 07:24 Resp 16 01/23/21 07:24 BP 118/69 01/23/21 07:24 Pulse Ox 93 01/23/21 07:24 Laboratory Results - last 24 hr 01/21/21 01/23/21 10:29 06:30 Sodium 140 Potassium 3.4 L Chloride 100 Carbon Dioxide 33.4 H Anion Gap 6.6 BUN 43 H Creatinine 1.7 H Estimated GFR/1.73 m2 40.91 Glucose 104 Calcium 8.7 Ur Strep pneumoniae Ag Negative
[2021-01-23] MEDS: Potassium Chloride 20 MEQ TABCR PO (09:33)
[2021-01-23] MEDS: DOXYCYCLINE 100 MG in Normal Saline 100 ML IVPB (09:55)
[2021-01-23 10:28] LABS: Bilirubin Negative (Negative); Blood Negative (Negative); Clarity Clear (Clear); Glucose Negative (Negative); Ketones Negative (Negative); Leukocyte Esterase Negative (Negative); Nitrite Negative (Negative); Specific Gravity >= 1.030 (1.005-1.025); Urobilinogen 0.2 EU/dL (Up TO 0.2)
--- NOTE | 2021-01-23 11:19 | CHAPLAIN ---
Cristian was sitting up in his chair when I visited. He is frustrated about being here, and hoping to go home soon. He thought he was being discharged twice earlier in the week, and that didn't happen, so that's added to his frustration.
[2021-01-23 14:46] LABS: Anion Gap 5.7 mmol/L (3-11); BUN 43 mg/dL (7-18); CO2 31.3 mmol/L (21.0-32.0); CREATININE 1.5 mg/dL (0.70-1.30); Calcium 9.1 mg/dL (8.5-10.1); Chloride 99 mmol/L (98-107); Estimated GFR 47.27 (mL/min/1.73m2); Glucose 130 mg/dL (74-106); Sodium 136 mmol/L (136-145)
[2021-01-23] MEDS: Lactated Ringers 250 ML 100 ML IV (19:50)
[2021-01-23] MEDS: Doxycycline Hyclate 100 MG CAP PO (20:09)
[2021-01-23] MEDS: Rosuvastatin 10 MG TAB 20 MG PO (20:09)
[2021-01-24 01:46] VITALS: BP 107/49; PULSE 58; RESP 17; TEMP 36.3; O2SAT 96
[2021-01-24 06:49] VITALS: BP 152/88; PULSE 61; RESP 16; TEMP 36.6; O2SAT 94
[2021-01-24] MEDS: Omeprazole 20 MG CAPCR PO (06:49)
[2021-01-24 07:46] LABS: Anion Gap 3.8 mmol/L (3-11); BUN 35 mg/dL (7-18); CO2 36.2 mmol/L (21.0-32.0); CREATININE 1.3 mg/dL (0.70-1.30); Calcium 8.8 mg/dL (8.5-10.1); Chloride 101 mmol/L (98-107); Estimated GFR 55.75 (mL/min/1.73m2); Glucose 95 mg/dL (74-106); NT-proBNP 486 pg/mL (<300); Potassium 3.7 mmol/L (3.5-5.1); Sodium 141 mmol/L (136-145)
[2021-01-24] MEDS: buPROPion-CR 150 MG TABCR PO (08:00)
[2021-01-24] MEDS: Aspirin E.C. 81 MG TABEC PO (08:00)
[2021-01-24] MEDS: Tamsulosin 0.4 MG CAPCR PO (08:00)
[2021-01-24] MEDS: Doxycycline Hyclate 100 MG CAP PO (08:00)
[2021-01-24] MEDS: Metoprolol 50 MG TAB PO (08:00)
[2021-01-24] MEDS: predniSONE 20 MG TAB 40 MG PO (08:00)
[2021-01-24] MEDS: Apixaban 5 MG TAB PO (08:01)
[2021-01-24] MEDS: Amiodarone 200 MG TAB 100 MG PO (08:01)
[2021-01-24] MEDS: Fluticasone NASAL SPRAY 16 GM BTL NS (08:02)
[2021-01-24] MEDS: Valsartan 40 MG TAB 20 MG PO (08:15)
[2021-01-24] MEDS: Torsemide 20 MG TAB PO (08:16)
--- NOTE | 2021-01-24 09:37 | W.PM.DS.N ---
Date of service: 01/24/21 Time of Service: 09:37 DS: Diagnosis Discharge Diagnosis (1) Acute exacerbation of CHF (congestive heart failure): Status: Acute Asessment and Plan: Patient presented in acute CHF clinically and radiologically although his BNP was normal. He required supplemental oxygen and was started on iv lasix and kept on his zaroxolyn. Later he was transitioned to oral torsemide and his zaroxolyn was changed to spironolactone and valsartan was added. However he developed some pre-renal azotemia and all diuretics had to be held and he required small (250 mL) boluses of fluids to recover his renal function. Serial troponins were ordered on admission and came back normal. His EKG showed SR w/ an IVCD and an old inferior AL but no acute ischemic or injury pattern. Echocardiogram was performed on 01/19 and showed mild conc. LVH w/ normal LV size and LVEF 50-55% (an improvement from his echo from 08/02/2018 w/ LVEF 45% w/ akinetic [id number] myocardium). His current echo was technically difficult and regional wall abnormalities could not be assessed. On his current echo RV was not well visualized. His mitral annulus ring had trace of mitral regurgitation and his aortic valve was not stenotic and had no regurgitation. Patient's CHF medications were changed to torsemide 20 mg bid, his zaroxolyn was stopped but if he gains weight off this then consideration for addition of either low dose spironolactone or resumption of low dose zaroxolyn either daily or every other day could be done to maintain him euvolemic. The patient has been instructed to weigh himself daily and report any sudden weight gain over 2 lbs. Jardiance (empagliflozin) 10 mg daily was prescribed at discharge. While I would have liked to try him on this in hospital to assess tolerance, it is not on formulary at [facility]. He was given patient instructions on Jardiance. I have explained to him that he is not diabetic (glycohemoglobin is hovering from 5.9% to 6.2%), he is prediabetic and an SGLT2 inhibitor has been shown to reduce the incidence of recurrent CHF even in non-diabetic patients. Given that he is prediabetic w/ borderline abnormal renal function, I think that Jardiance can be an important component to preserving his renal function as well as reducing his CV morbidity and mortality from CHF. However, he will need to be watched that he does not get dehydrated and over-diuresed while on the Jardiance. Follow up echocardiograms should be done an annual basis or sooner if he shows deterioration. The patient will be set up for Lexiscan stress MPI to assess any ischemic component to his CHF. (2) Acute bronchitis: Status: Acute Asessment and Plan: Patient came in with some URI symptoms of nasal congestion and post nasal drainage but then developed a cough and was wheezing and bringing up purulent looking sputum. He was started on ceftriaxone and doxycycline and prednisone and xopenec aerosols. He had marked improvement in his wheezing and his cough diminished. Repeat CXR was performed on 01/20 and this showed no pneumonic consolidation. Patient completed 4 days of parenteral antibiotics and prednisone. He no longer needs further antibiotics nor steroids. (3) Prerenal azotemia: Status: Acute Asessment and Plan: patient developed pre-renal azotemia d/t over diuresis. His admission BUN and creatinine were 20 and 1.2 but peaked at 43 and 1.7 but came down and at discharge was 35 and 1.2. As his diuretics are resumed and he is put on Diovan, some degree of azotemia may need to be accepted as long as he is not becoming dehydrated and his creatinine remains close to his baseline. His weight on admission was 143.8 (his first actual wt was on 01/17, the weights on 01/16 were estimated by ER based on patient's stated wt) and on the day prior to discharge he was 143.2 (an actual wt), however at discharge his weight was taken after he was fully clothed and with his shoes on and he was 146.4 kg. His dry weight unclothed should be considered 143 kg. (4) Obstructive sleep apnea: Status: Chronic Asessment and Plan: patient is encouraged to continue use of his CPAP. (5) Hypertension: Status: Chronic Asessment and Plan: Diovan low dose 20 mg bid was added to his CHF regimen and this should be titrated to highest dose tolerable based on his BP response and his renal function and his CHF. His lopressor dose was not changed. (6) CAD (coronary artery disease): Status: Chronic Asessment and Plan: patient to continue his lopressor, apixaban and aspirin. His cholesterol profile was checked and his LDL is not at goal. It was 115. His atorvastatin was changed from 40 mg to crestor 20 mg daily. A repeat lipid profile and liver profile should be rechecked in 3 to 6 months and further adjustments as needed to reduce his LDL to 70 or less. (7) Hyperlipidemia: Status: Chronic Asessment and Plan: as above. (8) Paroxysmal A-fib: Status: Acute Asessment and Plan: patient remained in NSR throughout his hospitalization. His lopressor and amiodarone and Elquis were not changed. If symptoms of palpitations develope then I would recommend 30 day event recorder to assess stability of his rhythm. However, at present, the patient has had no symptoms to suggest any arrhythmias. Discharge Plan Disposition Condition: Good Discharge Details Reason For Visit: Pulmonary Edema Admit Date/Time: 01/18/21 09:44 Admit Provider: Luis Moreno Attending Provider: Luis Moreno Primary Care Provider: Es Clinton Home Meds and New Rx's Prescriptions: New torsemide 20 mg Tablet 20 mg PO BID Qty: 60 RF: 1 valsartan 40 mg Tablet 20 mg PO BID Qty: 30 RF: 1 rosuvastatin [Crestor] 20 mg tablet 20 mg PO DAILY Qty: 30 RF: 1 empagliflozin 10 mg tablet 10 mg PO DAILY Qty: 30 RF: 1 Continued aspirin [Aspir-81] 81 MG tablet,delayed release (DR/EC) 81 mg PO DAILY RF: 0 albuterol sulfate [ProAir HFA] 200 PUFF HFA aerosol inhaler 2 puff Inhalation Q4H PRN PRNQty: 1 RF: 0 tamsulosin 0.4 MG capsule 0.4 mg PO DAILY@0830 RF: 0 Eliquis 5 MG tablet 5 mg PO BID Qty: 60 RF: 0 metoprolol tartrate 50 mg Tablet 50 mg PO BID RF: 0 amiodarone 200 mg Tablet 100 mg PO DAILY RF: 0 nitroglycerin 0.4 mg Tablet, Sublingual 0.4 mg SUBLINGUAL Q5-15M PRNRF: 0 omeprazole magnesium [Prilosec OTC] 20 mg Tablet,Delayed Release (Dr/Ec) 20 mg PO DAILY RF: 0 bupropion HCl 150 mg tablet sustained-release 12 hr 150 mg PO DAILY RF: 0 potassium chloride 20 mEq tablet,ER particles/crystals 20 meq PO DAILY RF: 0 Discontinued atorvastatin [Lipitor] 40 MG tablet 40 mg PO HS RF: 0 furosemide 20 mg Tablet 60 mg PO DAILY RF: 0 metolazone 2.5 mg tablet 2.5 mg PO DAILY PRNRF: 0 Discharge Instructions Instructions: Valsartan (By mouth), Torsemide (By mouth), Empagliflozin (By mouth), Heart Failure (DC), Pulmonary Edema (DC), Low-Sodium Diet (DC) Additional Instructions: You were admitted with acute congestive heart failure in the setting of your chronic heart failure from ischemic cardiomyopathy. Enzyme markers for heart attack were checked and you did not have a heart attack. You were treated w/ intravenous lasix however you had transient worsening of your kidney lab markers which has since recovered to your baseline kidney function. An echocardiogram was performed and you have had some improvement in your heart function since your last echocardiogram from August 02, 2018. It is recommended that you have an outpatient stress test to evaluate whether or not you have residual coronary ischemia that may contribute to your congestive heart failure. You have been started on a couple of medications to help treat your heart failure and to prevent progression of your heart failure. These include Diovan (valsartan) and Jardiance (empagliflozin). Your lasix (furosemide) was changed to torsemide due to its better absorption and more predictable diuresis. You should get follow up labs next week to monitor your kidney function. You should monitor your weights daily and report any sudden weight gain over 2 lbs per day. We will set you up for a chemical (Lexiscan) stress test in the next couple of weeks. You were also treated for an acute bronchitis with iv antibiotics and oral steroids and bronchodilator inhalers. You should not need any more antibiotics nor steroids at this point. Please call your primary care provider on Tuesday to set a follow up. You also should request follow up with cardiology. Stand Alone Forms: Nursing Discharge Form Referrals: Es Clinton PA [Primary Care Provider] - (Please call PCP on Tuesday to make follow up appointment for 1-2 weeks.) Activity:: Activity as Tolerated Diet:: Low Sodium Discharge Orders Other Ambulatory Orders: Basic Metabolic Panel (Routine) Timeframe: 1 Week Facility: [facility] - Location: Laboratory Outpatient Ordered By: Erick STOVALL MPI rest & stress grp (Routine) Timeframe: 2 Weeks Facility: [facility] - Location: DIAGNOSTIC IMAGING DEPT Ordered By: Erick Sibley DS: Summary Time Spent with Patient providing and/or coordinating discharge services: Less than 30 minutes Status at Discharge Functional status at discharge: independent ambulation Overall status at discharge: patient is back to baseline Mental Status: mental status grossly normal Speech and Movement: speech and movement normal Mood: congruent mood Affect: normal affect Exam Narrative Exam Narrative: Obese white male who is alert, sitting up eating breakfast. Barrel chested with clear lung sounds Heart regular rate and rhythm Abdomen is obese soft and nontender Legs without pitting edema I can palpate his tibia Psych Mental Status: mental status grossly normal Speech and Movement: speech and movement normal Mood: congruent mood Affect: normal affect DS: Data Vitals/I&O Vitals and I&O: Vital Signs Temperature 36.6 C 01/24/21 06:49 Temperature Source Temporal Artery Scan 01/24/21 06:49 Pulse 61 01/24/21 06:49 Pulse Rhythm Regular 01/24/21 07:11 Pulse 59 L 01/16/21 13:01 Respiratory Rate 16 01/24/21 06:49 Respiratory Effort Non-Labored 01/24/21 07:11 Respiratory Depth Normal 01/24/21 07:11 Respiratory Pattern Normal 01/24/21 07:11 Blood Pressure 152/88 H 01/24/21 06:49 Blood Pressure Mean 82 01/16/21 13:01 Pulse Oximetry 94 01/24/21 06:49 Oxygen Delivery Method Room Air 01/24/21 06:49 Oxygen Flow Rate 0 01/24/21 06:49 Pain Level 0 01/24/21 06:49 Comment 01/19/21 16:00 Intake & Output 01/23/21 01/23/21 01/24/21 11:59 23:59 11:59 Intake Total 850 / 1340 490 / 1340 Output Total 850 / 1550 700 / 1550 525 / 525 Balance 0 / -210 -210 / -210 -525 / -525 Weight 143.2 kg Intake: IV 610 / 860 250 / 860 Oral 240 / 480 240 / 480 Output: Urine 850 / 1550 700 / 1550 525 / 525 Other: Urine Color Yellow Yellow Light Fani Urine Appearance Clear Clear Clear Urine Odor Normal Normal Voiding Methods Urinal Urinal Data Completed and Pending Labs on day of discharge: Labs from last 24 hours 01/24/21 01/23/21 01/23/21 06:33 14:17 09:40 Sodium 141 136 Potassium 3.7 4.0 Chloride 101 99 Carbon Dioxide 36.2 H 31.3 Anion Gap 3.8 5.7 BUN 35 H 43 H Creatinine 1.3 1.5 H Estimated GFR/1.73 m2 55.75 47.27 Glucose 95 130 H Calcium 8.8 9.1 NT-Pro-B Natriuret Pep 486 H Urine Color Yellow Urine Clarity Clear Urine pH 6.0 Ur Specific [place] >= 1.030 H Urine Protein Negative Urine Ketones Negative Urine Blood Negative Urine Nitrite Negative Urine Bilirubin Negative Urine Urobilinogen 0.2 Ur Leukocyte Esterase Negative Urine Glucose Negative [facility] Active Problem List (Updated 01/23/21 @ 18:47 by Erick Sibley) Prerenal azotemia (Acute) Acute bronchitis (Acute) Discharge planning issues (Acute) History of mitral valve repair (Chronic) Paroxysmal A-fib (Acute) COVID-19 (Acute) Acute exacerbation of CHF (congestive heart failure) (Acute) Congestive heart failure with left ventricular systolic dysfunction (Acute) Chest pain (Acute) Mitral regurgitation (Acute) Obstructive sleep apnea (Chronic) Hyperlipidemia (Chronic) Hypertension (Chronic) Morbid obesity (Chronic) CAD (coronary artery disease) (Chronic) H/O adenomatous polyp of colon (Chronic) Pancolonic diverticulosis (Chronic) H/O surgical procedure (Chronic) Atrial fibrillation with rapid ventricular response (Acute) Ischemic cardiomyopathy (Acute) Medical History (Updated 01/23/21 @ 18:47 by Erick Sibley) 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 -> EMERGENT ANGIOPLASTY = OCCLUDED RCA, 50% CIRCUMFLEX (EF 40%POST-AL) ADENOMA COLON POLYP CAD Diverticulitis (~1989) EMERGENT COLECTOMY & TEMPORARY COLOSTOMY Essential hypertension Hyperlipidemia Obesity SKIN NEOPLASM Surgical History (Updated 01/20/21 @ 07:40 by Tasneem Sher) Angioplasty Appendectomy Arthroplasty of knee LEFT TORN ACL & MENISCUS COLECTOMY Colonoscopy - MAC (~2007) Colonoscopy - MAC (05/28/16) Colostomy (~1989) DIVERTICULITIS WITH EMERGENT COLECTOMY AND TEMPORARY COLOSTOMY. Family History Mother Personal history of malignant neoplasm COLON Father Heart disease Sister Personal history of malignant neoplasm Brother Heart disease Other Hearing loss Social History Smoking/Tobacco Use Status: Former Tobacco Use Smoking risk assessment performed?: Yes Alcohol Intake: current Alcohol Intake frequency: holidays/special occasions only Drug use: Never Substance use type: does not use Details: quit smoking 20+ years ago Current gender identity: male Do you feel safe at home: Yes Do you feel safe in your relationship?: Yes
--- NOTE | 2021-01-24 10:24 | PDOC.CMDIS ---
- If Service Date Differs Date of service: 01/24/21 Time of Service: 10:24 LACE Index Scoring Tool - Questions: Length of Stay (in days): 4 - 6 Acuity (Admit via E.D.?): Yes Comorbidities: Previous M.I., Congestive Heart Failure E.D. Visits: 2 - Answers: Total Score: 12 Risk of Readmission: High Risk Care Management Discharge Reason for Hospitalization: Pulmonary edema.
== END 2021-01-24 11:07 | disposition home or self-care (01) | DRG 291 ==
LOC: ER 12:11 → MS 13:22
PROVIDERS: Internal Medicine; Admitting Provider Family Medicine; Emergency Provider Student in an Organized Health Care Education/Training Program; PCP Physician Assistant Medical; Visit Provider Family Medicine
DX: I11.0 Hypertensive heart disease with heart failure (principal); I50.43 Acute on chronic combined systolic (congestive) and diastolic (congestive) heart failure; Z68.42 Body mass index [BMI] 45.0-49.9, adult; J20.9 Acute bronchitis, unspecified; G47.33 Obstructive sleep apnea (adult) (pediatric); I25.10 Atherosclerotic heart disease of native coronary artery without angina pectoris; I25.2 Old myocardial infarction; E78.5 Hyperlipidemia, unspecified; I48.0 Paroxysmal atrial fibrillation; E66.01 Morbid (severe) obesity due to excess calories; Z95.1 Presence of aortocoronary bypass graft; Z87.891 Personal history of nicotine dependence; Z20.822 Contact with and (suspected) exposure to COVID-19; Z86.16 Personal history of COVID-19; K57.30 Diverticulosis of large intestine without perforation or abscess without bleeding; I25.5 Ischemic cardiomyopathy; Z95.2 Presence of prosthetic heart valve; R11.2 Nausea with vomiting, unspecified; R79.89 Other specified abnormal findings of blood chemistry
CPT/HCPCS: 36415; 76770; 80048; 80053; 80061; 84145; 87635; 93005; 94640; 96365; 96375; 99285; 71045; 71046; 74177; 81003; 83036; 83735; 83880; 84132; 84484; 85025; 86140; 87070; 87205; 87899; 93010; 93306; 94667; 94668; 94760; 99220; 99225; 99231; 99232; 99238; G0378; J1941; J3480; J3490; J7512; J7613; J7614; J7620; Q9967

== ENCOUNTER 2021-02-02 01:02 | Outpatient (CLI) | payer MEDICAID, SELFPAY ==
--- NOTE | 2021-02-02 07:15 | DI.NM_ITS ---
APPROVED REPORT Exam: Pharmacologic Patient Location: Out-Patient Room/Bed: Stress Nurse: Lyn Alexander RN Ordering Provider:SANJEEV MAHMOOD, Contact Number: [phone] BMI: 48.19 Baseline Rhythm: Sinus Rhythm Comment: Intraventricular conduction delay Indications: CHEST PAIN, ATHEROSCLEROTIC HEART DISEASE Medical History Medical History: CHF, CAD, Acute bronchitis, MICHELLE, HLD, HTN, pAFIB, Morbid obesity, DM Cardiac Medications: Valsartain, Torsemide, Rosuvastatin, Potassium chloride, Omeprazole, Metoprolol tartrate, Asprin, Amiodarone, Albuterol sulfate inhaler, Eliquis, Empagliflozin Allergies: No known drug allergies Cardiac Risk Factors: Diabetes (non-insulin), HTN, Hyperlipidemia, FHX of CAD, Smoking (former), CVD, Obesity Pretest Chest Pain Characteristics: No chest pain Exercise History: Sedentary Physical Disabilities: None Lung Sounds: Diminished Heart Sounds: Regular Stress Test Details Test: Exercise stress converted to pharmacologic stress due to failure to obtain a diagnostic stress test. Reason for pharmacologic stress test: changed from exercise stress test due to inability to reach t arget heart rate. Nuclear Acquisition: Rest Tc-99m/Stress Tc-99m 1 day Rest Isotope: Tc-99m Sestamibi. Dose: 13.6 Date: 02/02/2021 Injection Time: 0900 Stress Isotope: Tc-99m Sestamibi. Dose: 46.0 Date: 02/02/2021 Injection Time: 1029 HR Resting HR Supine: 60 bpm Max Heart Rate (APMHR): 157.594503 bpm Resting HR Standin bpm Target HR (85% APMHR): 133.836384 bpm Max HR Achieved: 120 bpm % of APMHR: 76.43 Recovery HR: 77 bpm HR response to stress: Normal HR response to stress Comment: Metoprolol tartrate held this AM BP Resting BP Supine: 146/78 mmHg Resting BP Standin/80 mmHg Max BP: 164/82 mmHg Recovery BP: 146/76 mmHg BP response to stress: Normal blood pressure response to stress. ECG Resting ECG: Sinus Rhythm, Intraventricular conduction delay Ectopy: None Stress ECG: Sinus Tachycardia ST Change: No significant ST segment changes noted Arrhythmia: None Comment: flipped T wave lead III Recovery ECG: Sinus Rhythm, Intraventricular conduction delay Recovery ST Change: No significant ST segment changes noted Recovery Arrhythmia: None Clinical Reason for Termination: Fatigue, Dyspnea Stress Symptoms: Dyspnea, Nausea Exercise duration: 3 min22 sec Highest Stage Reached: Stage 2: 2.5 mph at 12% grade. Leger Treadmill Score: 3 Rate Pressure Product: Stress ECG Conclusion 1. This is a pharmacological stress test. 2. EKG portion of this exam is nondiagnostic. Leger Treadmill Score is 3 which is Moderate risk. Stress Test Summary STAGE Time (mins) Speed (mph) Grade (%) HR BP SYMPTOMS METS Supine 60 146/78 Standing 71 146/80 1 3 1.7 10 112 150/86 4.6 1 min post Lexiscan injection 109 162/90 3 min post Lexiscan injection 86 164/82 6 min post Lexiscan injection 77 146/76 MPI Conclusion The patient's ejection fraction was 52% with stress. There is hypokinesis of the inferior wall There is a moderate sized predominantly fixed perfusion defect along the inferior wall. This represents an abnormal SPECT stress test. Radiologist Interpretation Radiologist Interpretation by: Dagoberto Vann MD Interpretation Date/Time: 02/03/2021 16:17:26
[2021-02-02] MEDS: Regadenoson 0.4 MG/5 ML SYR IVP (10:37)
== END 2021-02-02 01:22 ==
PROVIDERS: PCP Physician Assistant Medical; Visit Provider Internal Medicine
DX: I25.10 Atherosclerotic heart disease of native coronary artery without angina pectoris (principal); I50.20 Unspecified systolic (congestive) heart failure; R07.9 Chest pain, unspecified; R94.39 Abnormal result of other cardiovascular function study; E11.9 Type 2 diabetes mellitus without complications; I10 Essential (primary) hypertension; E78.5 Hyperlipidemia, unspecified; Z82.49 Family history of ischemic heart disease and other diseases of the circulatory system; Z87.891 Personal history of nicotine dependence; E66.9 Obesity, unspecified
CPT/HCPCS: 78452; 93017; J2785

== ENCOUNTER 2021-03-02 10:46 | Outpatient (REF) | payer MEDICAID, SELFPAY ==
[2021-03-02 21:13] LABS: ALT 43 U/L (16-63); AST 21 U/L (15-37); Albumin 3.7 g/dL (3.4-5.0); Alkaline Phosphatase 105 U/L (46-116); Anion Gap 6.5 mmol/L (3-11); BUN 29 mg/dL (7-18); Bilirubin, Total 0.5 mg/dL (0.2-1.0); CO2 31.5 mmol/L (21.0-32.0); CREATININE 1.6 mg/dL (0.70-1.30); Calcium 8.8 mg/dL (8.5-10.1); Calculated LDL 96 mg/dL (<100); Chloride 101 mmol/L (98-107); Cholesterol 181 mg/dL (<200); Estimated GFR 43.87 (mL/min/1.73m2); Glucose 120 mg/dL (74-106); HDL Cholesterol 52 mg/dL (40-60); Potassium 4.1 mmol/L (3.5-5.1); Sodium 139 mmol/L (136-145); Total Protein 7.1 g/dL (6.4-8.2); Triglyceride 168 mg/dL (<150)
[2021-03-03 17:58] LABS: PSA, Screening 1.2 ng/mL (0.0-4.5)
== END 2021-03-02 10:47 | disposition home or self-care (01) ==
LOC: NCHCN 10:46
PROVIDERS: PCP Physician Assistant Medical; Visit Provider Physician Assistant Medical
DX: R35.1 Nocturia (principal); Z12.5 Encounter for screening for malignant neoplasm of prostate; E78.5 Hyperlipidemia, unspecified
CPT/HCPCS: 80053; 80061; 84153

== ENCOUNTER 2021-08-17 15:46 | Outpatient (REF) | payer MEDICAID, SELFPAY ==
[2021-08-17 19:32] LABS: Anion Gap 7.6 mmol/L (3-11); BUN 69 mg/dL (7-18); CO2 30.4 mmol/L (21.0-32.0); CREATININE 2.8 mg/dL (0.70-1.30); Calcium 8.8 mg/dL (8.5-10.1); Chloride 100 mmol/L (98-107); Glucose 148 mg/dL (74-106); Potassium 4.1 mmol/L (3.5-5.1); Sodium 138 mmol/L (136-145)
== END 2021-08-17 15:47 | disposition home or self-care (01) ==
LOC: NCHCN 15:46
PROVIDERS: PCP Physician Assistant Medical; Visit Provider Physician Assistant Medical
DX: I10 Essential (primary) hypertension (principal)
CPT/HCPCS: 80048

== ENCOUNTER 2021-08-21 14:36 | Outpatient (REF) | payer MEDICAID, SELFPAY ==
[2021-08-21 16:17] LABS: Anion Gap 6.9 mmol/L (3-11); BUN 51 mg/dL (7-18); CO2 29.1 mmol/L (21.0-32.0); CREATININE 1.9 mg/dL (0.70-1.30); Calcium 8.7 mg/dL (8.5-10.1); Chloride 100 mmol/L (98-107); Estimated GFR 35.98 (mL/min/1.73m2); Glucose 143 mg/dL (74-106); Potassium 4.3 mmol/L (3.5-5.1); Sodium 136 mmol/L (136-145)
== END 2021-08-21 14:37 | disposition home or self-care (01) ==
LOC: NCHCN 14:36
PROVIDERS: PCP Physician Assistant Medical; Visit Provider Physician Assistant Medical
DX: I50.9 Heart failure, unspecified (principal); N18.9 Chronic kidney disease, unspecified
CPT/HCPCS: 80048

== ENCOUNTER 2021-10-01 16:01 | Outpatient (REF) | payer MEDICAID, SELFPAY ==
[2021-10-01 20:40] LABS: Anion Gap 8.4 mmol/L (3-11); BUN 28 mg/dL (7-18); CO2 29.6 mmol/L (21.0-32.0); Calcium 8.8 mg/dL (8.5-10.1); Chloride 101 mmol/L (98-107); Estimated GFR 33.91 (mL/min/1.73m2); Glucose 127 mg/dL (74-106); Potassium 3.7 mmol/L (3.5-5.1); Sodium 139 mmol/L (136-145)
== END 2021-10-01 16:02 | disposition home or self-care (01) ==
LOC: NCHCN 16:01
PROVIDERS: PCP Physician Assistant Medical; Visit Provider Physician Assistant Medical
DX: I25.5 Ischemic cardiomyopathy (principal); I50.9 Heart failure, unspecified
CPT/HCPCS: 80048

== ENCOUNTER 2021-10-28 14:07 | Outpatient (REF) | payer MEDICAID, SELFPAY ==
--- OUTSIDE RECORDS SUMMARY | 2021-10-28 14:10 | XMS_ITS | Encounter Summary ---
:1955 Author Organization [facility] Address [address] [place] [address] Care Team Providers Name Role Phone Иван Seymour MD Primary Care Provider [phone] Unknown, Provider Primary Care Provider Encounter Details Date Type Department Care Team Description 01/30/2020 Lab Requisition [facility] Outr Resulting Lab, Pathology & Laboratory Provider [facility] [address] [place] [address] Social History Tobacco Use Types Packs/Day Years Used Date Never Assessed Sex Assigned at Date Recorded Not on file documented as of this encounter Plan of Treatment Not on filedocumented as of this encounter Procedures Procedure Name Priority Date/Time Associated Diagnosis Comme nts COVID-19 TEST [facility] Today 01/29/2020 11:15 LAB PCR EST COVID-19 TESTING Routine 01/29/2020 11:15 Results for this EST procedure are i n the results section. documented in this encounter Results COVID-19 TEST [facility] LAB PCR (01/29/2020 11:15 EST) Specimen Swab - Entire nasopharynx (body structur e) Performing Organization Address City/State/ZIP Code Phon e Number [facility] [address] [place] [address] SERVICES COVID-19 TESTING (01/29/2020 11:15 EST) COVID-19 rt-PCR Negative Negative [facility] Result Comment: [facility] Negative results do not prec lude 2019-nCoV infection and should not be used as the sole basis for treatment or other patient management decisions. Negative results must be combined with clinical observa SERVICES tions, patient history, and epidemiological informatio n. This test was developed and its performance characteristics determined by [facility]. It has not been cleared or approved by the [place] Food and Drug Administration. FDA does not require this test to go through premarket FDA review. This t est is used for clinical purposes. It should not be regarded as investigational or for research. This laboratory is certified under the Clinical Laboratory Improvement Amendm ents (CLIA) as qualified to perform high complexity clinical laboratory testing. This test is based on the CD C COVID-19 Emergency Use Authorization (EUA) assay, with minor modification as defined by the FDA Performed on the Rerecipe Flex . Performing Lab [facility] Hospital Lab [facility] SERVICES Specimen Swab Performing Organization Address City/State/ZIP Code Phon e Number [facility] [address] [place] [address] SERVICES documented in this encounter Visit Diagnoses Not on filedocumented in this encounter Care Teams Integration Software Engineer Relationship Specialty Start Date End Date Иван Seymour MD PCP - General 01/08/09 01/19/21 [address] [place] [phone] Unknown, Provider, PCP - General 01/20/21 documented as of this encounter
--- OUTSIDE RECORDS SUMMARY | 2021-10-28 14:10 | XMS_ITS | Encounter Summary ---
:1955 Author Organization [facility] Address [address] [place] [address] Care Team Providers Name Role Phone Unknown, Provider Primary Care Provider Encounter Details Date Type Department Care Team Description 03/03/2021 Lab Requisition [facility] Outr Resulting Lab, Pathology & Laboratory Provider [facility] [address] [place] [address] Social History Tobacco Use Types Packs/Day Years Used Date Never Assessed Sex Assigned at Date Recorded Not on file documented as of this encounter Plan of Treatment Not on filedocumented as of this encounter Procedures Procedure Name Priority Date/Time Associated Comments Diagnosis PSA TOTAL, Routine 03/02/2021 10:30 Results for this DIAGNOSTIC EST procedure are i n the results section. documented in this encounter Results PSA TOTAL, DIAGNOSTIC (03/02/2021 10:30 EST) Pathologist Sig nature PSA 1.2 0.0 - 4.5 ng/mL [facility] SERVICES Specimen Blood - Venous blood (substance) Narrative [facility] - 03/03/2021 17:52 EST NOTE: Serum PSA concentration should not be in terpreted as absolute evidence for the presence or absence of malignant disease. Assayed on Siemens ADVIA Centaur XPT usi ng chemiluminescent technology.??Values obtained by using different assay methods cannot be used interchangeably. Performing Organization Address City/State/ZIP Code Phon e Number [facility] [address] [place] [address] SERVICES documented in this encounter Visit Diagnoses Not on filedocumented in this encounter Care Teams Parole Director Relationship Specialty Start Date End Date Unknown, Provider, PCP - General 01/20/21 documented as of this encounter
--- OUTSIDE RECORDS SUMMARY | 2021-10-28 14:10 | XMS_ITS | Encounter Summary ---
:1955 Author Organization [facility] [place] [address] Care Team Providers Name Role Phone Es Clinton Primary Care Provider Reason for Visit Reason Onset Date Comments Shortness of Breath 01/30/2020 Encounter Details Date Type Department Care Team Description 01/30/2020 Telephone Cardiology at [facility] [place] [address] Social History Tobacco Use Types Packs/Day Years Used Date Former Smoker Cigarettes 2 26 Quit: 08/16/18 96 Smokeless Tobacco: Never Used Alcohol Use Standard Drinks/Week Comments No 0 (1 standard drink = 0.6 oz pure alcoho l) one a month Alcohol Habits Answer Date Recorded How often do you have a drink containing alcohol? Not asked How many drinks containing alcohol do you have on a typical Not asked day when you are drinking? How often do you have six or more drinks on one occasion? No t asked Comment: one a month 08/16/2017 Sex Assigned at Date Recorded Not on file documented as of this encounter Miscellaneous Notes Telephone Encounter - Karen Wei, RN - 01/30/2020 10:16 AM EST VM reporting that Cristian is having a hard time to breath- was seen yesterday and all his lab stuff is up. 7 minutes after received VM from Brii ANDERSON that she saw him for worsening SOB, BNP was 1850, temp 99.5, neg urine culture, 93% oxygen saturation on RA- and she will fax the rest of the labs, he istaking 60 mg lasix daily and increasing this she would not do as an outpatient. Chart reviewed. Call to Cristian who reports increasing SOB, increasing weakness, increasing abd swelling. Does not weigh himself or take VS no cxr done yesterday. Message taken to Suze Grant. Unable to locate labs yet. Call to ward secretary who will attempt to get the labs and enter into chart. Karen Wei RN 4A Cardiology documented in this encounter Plan of Treatment Upcoming Encounters Date Type Specialty Care Team Description 11/11/2021 Office Visit Nephrology Jonn Zuniga MD [facility] NEPHROLOGY DEPT [place], [place] [address] (Wo rk) documented as of this encounter Visit Diagnoses Not on filedocumented in this encounter Care Teams Process Improvement Engineer Relationship Specialty Start Date End Date Es Clinton PA PCP - General Family Medicine 11/27/19 [address] [place] [address] documented as of this encounter
--- OUTSIDE RECORDS SUMMARY | 2021-10-28 14:10 | XMS_ITS | Encounter Summary ---
:1955 Author Organization [facility] [place] [address] Care Team Providers Name Role Phone Es Clinton Primary Care Provider Encounter Details Date Type Department Care Team Description 09/15/2021 Office Visit Cardiology at [facility] Shalom Grant, Coronary artery disease, uns pecified vessel or lesion type, unspecified whether angina present, unspecified whether [place] or transplanted heart; [facility] NORBERTO Paroxysmal atrial fibrillation; [facility] MICHELLE (obstructive sleep apnea ); [place], [place] Dr BAILON (shortness of breath); [id number] [place] [address] Palpitations; [phone] Nonrheumatic mi tral valve regurgitation; (Work) Congestive heart failure, unspecified HF chronicity, unspecified heart failure type Social History Tobacco Use Types Packs/Day Years [...] on file documented as of this encounter Last Filed Vital Signs Vital Sign Reading Time Taken Comments Blood Pressure 114/49 09/15/2021 1:36 PM EDT Pulse 56 09/15/2021 1:36 PM EDT Temperature - - Respiratory Rate - - Oxygen Saturation 95% 09/15/2021 1:36 PM EDT Inhaled Oxygen Concentration - - Weight 154.3 kg (340 lb 3.2 oz) 09/15/2021 1:36 PM EDT Height 172.7 cm (5' 8) 09/15/2021 1:36 PM EDT Body Mass Index 51.73 09/15/2021 1:36 PM EDT documented in this encounter Progress Notes Shalom Grant PA - 09/15/2021 1:40 PM EDT Images from the original note were not included. [facility] Interventional Cardiology Reason for Visit: Follow up HF pEF, dyspnea Primary provider: NORBERTO Cage [address] [place] [address] [employer]: Problem List: Obesity CAD: remote MS. ??CABG 2018 (SVG-OM, SVG-rPDA), with MV repair A fib, on amio, eliquis. Paroxysmal. ??Since 2018 cardiac surgery MICHELLE on CPAP MR: severe MR, s/p repair 30mm ring CHF: chronic. ??EF 55%, previously EF 45% post CABG Patient Active Problem List Diagnosis ??? CHF (congestive heart failure) TTE 08/02/2018 ([facility]): ??? Morbid obesity ??? Atrial fibrillation 10/12/17: Direct current cardioversion ??? MICHELLE (obstructive sleep apnea) ??? SOB (shortness of breath) ??? Palpitations ??? Mitral regurgitation 10/07/17??Mitral valve repair, CABGx2 (two venous grafts) MV repair, reduction annuloplasty with a 30mm physio II CABGx2, SVG-> OM, SVG->PDA ??? CAD (coronary artery disease) 10/07/17 Mitral valve repair, CABGx2 (two venous grafts) Prior history CAD, angioplasty in 1980s DSE 03/13/2019: SUMMARY: 1. Dobutamine stress echo is indeterminate for ischemia because the target HR was not achieved. There is no ischemia at this near-target level of stress. 2. The patient achieved a maximum heart rate of 131 bpm which is 82% of the maximum predicted heart rate (159 beats/min). The target heart rate was not achieved. 3. The peak dose of Dobutamine infused was 40 ug/kg/min and 0.50 mg of Atropine. The patient did not express feelings of chest discomfort. 4. Echo: The left ventricle is moderately dilated. There is normal global left ventricular systolic function. Ejection fraction is estimated to be 55%. There are left ventricular segmental wall motion abnormalities present, as shown in the diagram below. The size of the prosthetic mitral valve is 30mm. The prosthetic mitral valve was implanted on 10/07/2017. Status-post placement of a mitral valve ring. Mild (1+/4+) mitral prosthesis regurgitation is present. At peak stress, the regional WMA are mostly unchanged as coded below. Other segments recruit. 5. ECG: NSR. No significant ST changes with stress. PVCs noted (trigeminy). 6. Other details as noted below. HPI: Cristian Miner is a 65 y.o. male interviewed today in outpatient cardiology clinic for routine evaluation of his heart failure symptoms, atrial fibrillation and other cardiac issues as delineated below. I have met Mr Miner a few times over the last few years, most recently 6 months ago at which point wediscussed weight loss - no medications were changed at that time. His past medical history is notable for paroxysms of atrial fibrillation first noted in 2018 at the time of his cardiac surgery for severe mitral valve regurgitation and severe coronary artery disease (SVG-OM, SVG-rPDA, and 30mm physio ring for MV repair) with prior DCCV and maintained on eliquis and a miodarone, hypertension, obesity, CHF / HFpEF, MICHELLE on CPAP with home supplemental O2. ??Last EF 55%,recent normal PFTs. Cant seem to stop the swelling in his legs, even with increased diuretic. He is walking some daily. He takes daily albuterol. He notes his breathing is better than a month ago. He still gets some SOB with exertion, although he notes the more he walks, the better I feel. Hedoes not have any other associated symptoms. He has had no chest pain. No chest pressure or discomfort. No lightheadedness and no syncope. He does not note any palpitations. He was using oxygen at night when his CPAP was broken. He is using his CPAP again now, and he notes a new CPAP machine is coming to him based on a recent sleep study. No recent illness. No cough cold or flu symptoms. No orthopnea. On eliquis, no bleeding issues. No hematuria. No bruising. His left ventricular function was mildly reduced post CABG but on outside echo last year, it appearsthe ejection fraction has rebounded to normal. 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 He lives up in near [place], [place]. ?? He does a great job avoiding excess salt, but admits to indulging in sweets and large portions. ?? ALLERGIES: No Known Allergies MEDICATIONS: Current Outpatient Medications: ??? valsartan (Diovan) 40 mg Tablet, Take 40 mg by mouth daily., Disp: , Rfl: ??? Jardiance 10 mg Tablet, Take 10 mg by mouth daily., Disp: , Rfl: ??? spironolactone (Aldactone) 25 mg Tablet, Take 25 mg by mouth daily., Disp: , Rfl: ??? rosuvastatin (Crestor) 20 mg Tablet, Take 20 mg by mouth daily., Disp: , Rfl: ??? torsemide (Demadex) 20 mg Tablet, Take 20 mg by mouth 2 times daily., Disp: , Rfl: ??? omeprazole (PriLOSEC) 20 mg Capsule, Delayed Release(E.C.), Take 20 mg by mouth daily., Disp: , Rfl: ??? potassium chloride (KLOR-CON) 20 mEq Packet, Take 20 mEq by mouth daily., Disp: , Rfl: ??? buPROPion SR (WELLBUTRIN SR) 150 mg tablet sustained-release 12 hr, 150 mg daily., Disp: , Rfl: ??? docusate sodium (COLACE) 100 mg Capsule, Take 100 mg by mouth as needed., Disp: , Rfl: ??? metoprolol tartrate (LOPRESSOR) 50 mg Tablet, Take 1 tablet by mouth 2 times daily., Disp: 180 tablet, Rfl: 3 ??? AMIOdarone (CORDARONE; PACERONE) 200 mg Tablet, Take 0.5 tablets by mouth daily., Disp: 30 tablet, Rfl: 0 ??? apixaban (ELIQUIS) 5 mg Tablet, Take 1 tablet by mouth 2 times daily., Disp: 180 tablet, Rfl: 3 ??? acetaminophen (TYLENOL) 500 mg Tablet, Take 2 tablets by mouth every 6 hours as needed for Pain., Disp: 30 tablet, Rfl: 1 ??? albuterol 90 mcg/actuation HFA Aerosol Inhaler, Inhale 2 puffs into the lungs every 4 hours as needed for Wheezing. Use with spacer, Disp: , Rfl: ??? aspirin 81 mg Tablet, Delayed Release (E.C.), Take 81 mg by mouth daily., Disp: , Rfl: ??? tamsulosin (FLOMAX) 0.4 mg Capsule, Sust. Release 24 hr, Take 0.4 mg by mouth daily., Disp: , Rfl: ROS: CONSTITUTIONAL: No weight loss, fever, chills, weakness or fatigue. HEENT: Eyes: No visual loss, blurred vision, double vision or scleral iscterus. No sinus tenderness or palpable thyromegaly. SKIN: No rashes. CARDIOVASCULAR: No chest pain, chest pressure or chest discomfort. No palpitations No edema. No orthopnea or PND. No syncope RESPIRATORY: YES shortness of breath as described, no cough or sputum. No hemoptysis GASTROINTESTINAL: No anorexia, nausea, vomiting or diarrhea. No abdominal pain. No BRBPR or melena GENITOURINARY: No hematuria or dysuria NEUROLOGICAL: No headache, dizziness, syncope, paralysis, ataxia, numbness or tingling in the extremities. No change in bowel or bladder control. MUSCULOSKELETAL: No muscle, back pain, joint pain or stiffness. HEMATOLOGIC: No anemia, bleeding or bruising. LYMPHATICS: No enlarged nodes. No history of splenectomy. PSYCHIATRIC: No history of depression or anxiety. ENDOCRINOLOGIC: No reports of sweating, cold or heat intolerance. No polyuria or polydipsia. ALLERGIES: No history of asthma, hives, eczema or rhinitis. PHYSICAL EXAM: Constitutional: In general, alert and oriented X 3 obese male in no acute distress The patient readily recounts the specifics of his medical care and can easily ambulate around the exam room. Vitals Flowsheet Row Office Visit from 09/15/2021 in Cardiology at [facility] Weight 154.3 kg (340 lb 3.2 oz) Height 172.7 cm (5' 8) BSA (Calculated - sq m) 2.72 sq meters BMI (Calculated) 51.72 Heart Rate 56 BP 114/49 Patient Position Sitting SpO2 95 % Eyes: No scleral icterus or pale conjunctiva; no corneal arcus Ears, Nose, mouth, throat: No sinus tenderness; moist oral mucosa; no epistaxis; no visible thyromegaly Respiratory: Clear to auscultation bilaterally with good air entry bilaterally GI: No abdominal pain; + bowel sounds; no rigidity or guarding Cardiovascular: The heart rate is regular. S1 and S2 are normal and unobscured. There are no audiblemurmurs. Carotid upstroke is normal with no audible carotid bruits MSK: No joint deformity; No evidence of tendon xanthomas Skin: No visible rashes or bruises Neuro: Non-focal. Moves all extremities without limitation. CN nerves not examined. Psych: Mood appropriate Extremity: RLE: No LE edema LLE: No LE edema RUE: 2+ radial pulse LUE: 2+ radial pulse DIAGNOSTIC TESTS: Echo Pharm Stress Test: 03/13/2019 SUMMARY: ?? 1. Dobutamine stress echo is indeterminate for ischemia because the target HR was not achieved. ??There is no ischemia at this near-target level of stress. ?? 2. The patient achieved a maximum heart rate of 131 bpm which is 82% of the maximum predicted heart rate (159 beats/min). The target heart rate was not achieved. 3. The peak dose of Dobutamine infused was 40 ug/kg/min and 0.50 mg of Atropine. ??The patient did not express feelings of chest discomfort. 4. Echo: The left ventricle is moderately dilated. ??There is normal global left ventricular systolic function. ??Ejection fraction is estimated to be 55%. ??There are left ventricular segmental wall motion abnormalities present, as shown in the diagram below. ??The size of the prosthetic mitral valve is 30mm. ??The prosthetic mitral valve was implanted on 10/07/2017. ??Status-post placement of a mitral valve ring. Mild (1+/4+) mitral prosthesis regurgitation is present. ??At peak stress, the regional WMA are mostly unchanged as coded below. ??Other segments recruit. ?? 5. ECG: NSR. ??No significant ST changes with stress. PVCs noted (trigeminy). 6. Other details as noted below. ? ecg: Sinus. ??Prior inferior infarct. Narrow QRS. Similar to previous. ?? A/P: Cristian Miner is a 65 y.o. male seen for routine follow up of his atrial fibrillation and chronicheart failure. His medical history includes coronary artery disease and mitral valve disease treated concomitantly in 2018 with 2v CABG and 30mm pysio mitral ring, severe obstructive sleep apnea, paroxysmal atrial fibrillation on rhythm control and anticoagulation and stable chronic dyspnea who presents for routine follow up. ?? While he is overweight and JVP is challenging to accurately assess, he does not have any overt signstoday of clinical Heart Failure. His BP has been well controlled. ?? We reviewed his medical history and his prior cardiac procedures. We discussed ways to mitigate his cardiovascular risk and goals of care, which include symptom prevention and avoiding hospitalizations. We reviewed salt limitations and dietary restrictions, regular exercise. Weight loss is a top priority to reduce risk at this point. He knows what symptoms to watch out for (breathlessness, weight gain, chest pressure) that would prompt urgent evaluation. ?? His dyspnea is multifactorial with deconditioning, MICHELLE, obesity, but his heart failure has recently been sub-optimally managed leading to recent ED visit.?NYHA Class II - no symptoms at rest. On appropriate medications including the torsemide for symptoms, statin, spironolactone, metoprolol, valsartan and aspirin. ?? His coronary disease is stable. ??He had a recent stress echo which was negative for ischemia at that threshold (did barely miss the target HR). ??He has no chest pain, CCS class 0. ??He is on appropriate medical therapy which we will continue. ??preserved LVEF. On appropriate meds. ? A fib, perioperative, paroxysmal. ??None seen on zio last year. ??On eliquis, amio 100mg daily and metoprolol for rate control. ??No signs/symptoms of stroke. ??No bleeding issues. ??No symptoms. Continue current management.?? His Amio monitoring will include eye exam he will coordinate, LFTs and TSH which will be ordered at next office visit. PFTs had been completed recently. ?? Goal: weight loss of 5 pounds this month, 10 pounds next month. ?? Start cardiopulmonary rehab. HR and BP have been great. Reduce Metoprolol 75mg total daily dose. Increase spironolactone to 50mg once daily. Increase torsemide to 60mg total daily. Contact PCP to increase meds. She coordinates bubble packs of meds. Check metabolic profile (creatinine of interest). Follow up phone call 3 weeks. After telephone call will coordinate next follow up. NORBERTO Collier 09/15/2021 1:58 PM [facility] Pager [phone] A total of 45 minutes spent on this visit including chart review, review of tests and pertinent imaging studies as well as direct communication with patient. documented in this encounter Plan of Treatment Upcoming Encounters Date Type Specialty Care Team Description 11/11/2021 Office Visit Nephrology Jonn Zuniga MD [facility] NEPHROLOGY DEPT [place], [place] [address] (Wo rk) Scheduled Orders Name Type Priority Associated Diagnoses Order S chedule Basic Metabolic Panel Lab Routine Coronary Artery Dis ease, Expected: 09/29/2021 (non-fasting) Unspecified Vessel Or (Appr oximate) Lesion Type, Unspecified Whether Angina Present, Unspecified Whether [place] Or Transplanted Heart Paroxysmal atrial fibrillation MICHELLE (obstructive sleep apnea) SOB (shortness o f breath) Palpitations Nonrheumatic mitral valve regurgitation Congestive heart failure, unspecified HF chronicity, unspecified heart failure type documented as of this encounter Visit Diagnoses Diagnosis Coronary artery disease, unspecified ves giovani or lesion type, unspecified whether angina present, unspecified whether [place] or transplanted heart Paroxysmal atrial fibrillation Atrial fibrillation MICHELLE (obstructive sleep apnea) Obstructive sleep apnea (adult) (pediatr ic) SOB (shortness of breath) Shortness of breath Palpitations Nonrheumatic mitral valve regurgitation Congestive heart failure, unspecified HF chronicity, unspecified heart failure type documented in this encounter Care Teams Strategic Sourcing Specialist Relationship Specialty Start Date End Date Es Clinton PA PCP - General Family Medicine 11/27/19 [address] [place] [address] documented as of this encounter
--- OUTSIDE RECORDS SUMMARY | 2021-10-28 14:10 | XMS_ITS | Encounter Summary ---
:1955 [place] [address] Care Team Providers Name Role Phone Es Clinton Primary Care Provider Reason for Visit Reason Comments Shortness of Breath Congestive Heart Failure Encounter Details Date Type Department Care Team Description 01/30/2020 Emergency Emergency Department Palak Kaplan A cute on chronic systolic congestive heart failure; Petra Quiroga MD Viral syndrome [facility] [address] [place] [address] [place] [address] [phone] (Wo rk) Social History Tobacco Use Types Packs/Day Years [...] Sign Reading Time Taken Comments Blood Pressure 148/75 01/30/2020 6:08 PM EST Pulse 70 01/30/2020 6:08 PM EST Temperature 37.4 ??C (99.3 ??F) 01/30/2020 2:45 PM EST Respiratory Rate 17 01/30/2020 6:08 PM EST Oxygen Saturation 95% 01/30/2020 6:08 PM EST Inhaled Oxygen Concentration - - Weight 136.1 kg (300 lb) 01/30/2020 2:08 PM EST Height 172.7 cm (5' 8) 01/30/2020 2:08 PM EST Body Mass Index 45.61 01/30/2020 2:08 PM EST documented in this encounter Discharge Instructions Discharge InstructionsEverton Urrutia DO - 01/30/2020 6:49 PM EST You presented with worsening trouble breathing and fatigue. You were given 40mg of IV lasix and yoursymptoms improved. Infectious workup including COVID and urine were negative. Please take an extra dose of lasix tonight, continue taking 2L oxygen therapy until you follow up with your PCP. Please call PCP to schedule appointment urgently by end of week if possible and also please start to monitor weights daily. Please feel free to return to the ED, whenever needed if symptoms worsen. documented in this encounter Medications at Time of Discharge Medication Sig Dispensed Refills Start Date End Date buPROPion SR (WELLBUTRIN 150 mg daily. 0 02/10/20 19 SR) 150 mg tablet sustained-release 12 hr metoprolol tartrate Take 1 tablet by 180 tablet 3 03/03/2018 (LOPRESSOR) 50 mg Tablet mouth 2 times daily. AMIOdarone (CORDARONE; Take 0.5 tablets by 30 tablet 0 02/21 PACERONE) 200 mg Tablet mouth daily. apixaban (ELIQUIS) 5 mg Take 1 tablet by 180 tablet 3 2018 Tablet mouth 2 times daily. aspirin 81 mg Tablet, Take 81 mg by mouth 0 Delayed Release (E.C.) daily. tamsulosin (FLOMAX) 0.4 Take 0.4 mg by 0 mg Capsule, Sust. Release mouth daily. 24 hr docusate sodium (COLACE) Take 100 mg by 0 100 mg Capsule mouth as needed. acetaminophen (TYLENOL) Take 2 tablets by 30 tablet 1 10/18 500 mg Tablet mouth every 6 hours as needed for Pain. albuterol 90 Inhale 2 puffs into 0 mcg/actuation HFA Aerosol the lungs every 4 Inhaler hours as needed for Wheezing. Use with spacer furosemide (Lasix) 20 mg Take 3 tablets by 270 tablet 3 09/2203/14/2020 Tablet mouth daily. 1-2 tablets atorvastatin (LIPITOR) 40 Take 40 mg by mouth 0 03/10/2021 mg Tablet daily. documented as of this encounter ED Notes Alayna Augustine RN - 01/30/2020 6:14 PM EST Patient ambulated in room on 2L per NC, oxygen saturation 97 %. Everton Urrutia DO - 01/30/2020 3:31 PM EST Cristian Miner is an 64 y.o. male who presents to the ED with: Chief Complaint Patient presents with ??? Shortness of Breath ??? Congestive Heart Failure I saw this patient 01/30/2020 at ~ 10:29 PM HPI Cristian Miner is a 64 y.o. male with a PMH significant for CAD (s/p CABG in 2018), CHF (indeterminate stress echo with estimated EF of 55% in 02/2019), chronic GREENBERG with intermittent oxygen requirement forsymptoms relief (normal recent PFTs) and Afib on amiodarone who presents to the Emergency Departmentwith roughly 3 days of worsening dyspnea, general malaise, arthralgias, anorexia and urinary incontinence. Patient developed achiness with worsening sob both on rest and exertional that started 3-4 days ago.Has been using more home oxygen and albuterol inhaler, without relief. SOB is constant, no PND, chronically sleeps with 2 pillows at night and feels like he can lay flat without worsening SOB. No worsening of VIKI, but does feel that his abdomin is more congested, feels like fluid is backing up. Doesnot monitor his weights, has been taking his heart medications including lasix 20mg qd routinely anddenies any recent changes in his meds. He does have a chronic non-productive cough, but reports thatit is very mild. Denies any fevers, does feel chilly, no sick contact and no covid exposures. He also reports some anorexia over this same time, diarrhea with 2-3 loose BMs, just yesterday, but this has since resolved. No changes in smell, taste. Denies any chest pain. Also has been experiencing some urinary incontinence over this time, he reports that when walking tothe bathroom he will leak urine onto the floor. Denies any dysuria, or hematuria. No abdominal pain or back/flank pain. Patient saw his PCP yesterday with these symptoms and work up at that time, showed a WBC of 11, Hgb of 15, Normal BMP (Cr of 1.3), Pro-BNP of >1800, UA with reports leukos and large blood, but culture <10K CFUs. Patient continued to have symptoms so was told to present to ED for further evaluation. Social History Socioeconomic History ??? Marital status: Spouse name: None ??? Number of children: None ??? Years of education: None ??? Highest education level: None Occupational History ??? 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 Financial resource strain: None ??? Food insecurity Worry: None Inability: None ??? Transportation needs Medical: None Non-medical: None Tobacco Use ??? Smoking status: Former Smoker Packs/day: 2.00 Years: 26.00 Pack years: 52.00 Types: Cigarettes Quit date: 08/17/1995 Years since quittin.4 ??? Smokeless tobacco: Never Used Substance and Sexual Activity ??? Alcohol use: No Comment: one a month ??? Drug use: No ??? Sexual activity: None Lifestyle ??? Physical activity Days per week: None Minutes per session: None ??? Stress: None Relationships ??? Social connections Talks on phone: None Gets together: None Attends rastafarian service: None Active member of club or organization: None Attends meetings of clubs or organizations: None Relationship status: None ??? Intimate partner violence Fear of current or ex partner: None Emotionally abused: None Physically abused: None Forced sexual activity: None Other Topics Concern ??? None Social History Narrative Lives near [place], [place]. 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 Eats pretty healthily with lots of salads. Review of Systems: Constitutional - no fevers, chills, weight loss or gain, fatigue HEENT - No diffculty swallowing, hearing, No nasal congestion or postnasal drip Eyes - No visual changes, blurriness or visual loss Cardiovascular - No CP, palpitations, Angina Respiratory - No wheeze, cough, sputum production Gastrointestinal - No abdominal pain, nausea, GERD, constipation, diarrhea, blood in stool Genitourinary - no dysuria, +frequency/incontinence Neurological - No numbness, tingling, loss of sensation, weakness or function of limbs, No headaches Musculoskeletal - No weakness, pain at rest or with movement Vital Signs: Patient Vitals for the past 24 hrs: BP Temp Temp src Pulse Resp SpO2 Height Weight 01/30/20 1808 148/75 -- -- 70 17 95 % -- -- 01/30/20 1745 98/49 -- -- 63 20 95 % -- -- 01/30/20 1730 131/75 -- -- 64 24 93 % -- -- 01/30/20 1715 138/69 -- -- 62 22 96 % -- -- 01/30/20 1700 113/61 -- -- 67 20 96 % -- -- 01/30/20 1645 104/63 -- -- 62 21 97 % -- -- 01/30/20 1630 -- -- -- 61 21 96 % -- -- 01/30/20 1618 -- -- -- 62 23 96 % -- -- 01/30/20 1615 (!) 85/59 -- -- 66 21 (!) 89 % -- -- 01/30/20 1600 111/68 -- -- 69 24 91 % -- -- 01/30/20 1545 128/80 -- -- 62 21 90 % -- -- 01/30/20 1534 -- -- -- 64 20 (!) 86 % -- -- 01/30/20 1530 106/53 -- -- 64 25 92 % -- -- 01/30/20 1529 -- -- -- 71 24 (!) 87 % -- -- 01/30/20 1515 (!) 139/116 -- -- 66 23 91 % -- -- 01/30/20 1500 127/73 -- -- 63 21 91 % -- -- 01/30/20 1445 (!) 150/99 37.4 ??C (99.3 ??F) Oral 65 28 93 % -- -- 01/30/20 1408 131/77 37.4 ??C (99.3 ??F) Oral 65 20 91 % 172.7 cm (5' 8) 136.1 kg (300 lb) Physical Exam: General - Pleasant M, conversant without labored breathing, No apparent distress. ENT - Mouth without lesions. Sinuses: Negative. Oropharynx: moist without lesions Eyes- EOMI. Not jaundiced. PERRL, b/l injected sclera Neck - No lymphadenopathy. Full range of motion, no bruits, no thyromegaly Lungs - Clear to auscultation (difficult to hear in negative pressure room with PPE) Heart - RRR, S1,S2, no murmur, gallop or rub. Pulses intact. (difficult to hear in negative pressure room with PPE) Abdomen - Soft, nontender, normal active bowel sounds, neg hsm or masses. Extremities - Trace pretibial pitting edema. Joints normal. Chest/Back - no spinal tenderness, no CVAT - No suprapubic or CVA tenderness Neurological - Orientation - person, place and time. Cranial nerves intact. Strength - 5/5 upper and lower extremities. Sensation - light touch intact. DTR's - 2+, symmetrical. ED Course: - Patient was evaluated and discussed with Dr. Kaplan - Medications, allergies and past medical history reviewed - Nursing notes and vital signs reviewed - Medications and fluid administered: Medications furosemide (Lasix) (10 mg/mL) injection 40 mg (40 mg Intravenous Given 01/30/20 1602) - I have reviewed the labs, which are significant for: Recent Results (from the past 24 hour(s)) COVID-19 PCR Specimen: Nasopharyngeal Swab Symptoms->COVID-19 Suspected Result Value Ref Range Rapid SARS-CoV-2 RNA Not Detected Not Detected SARS-CoV-2 Source CHEMIST INTERNSHIP Swab Hepatic Function Panel Result Value Ref Range Total Protein 7.0 6.1 - 8.0 gm/dL Albumin 3.8 3.2 - 5.2 gm/dL AST 25 0 - 39 unit/L ALT 34 0 - 55 unit/L Alk Phos 92 40 - 130 unit/L Total Bilirubin 1.1 0.2 - 1.3 mg/dL Bili, Direct 0.3 0.0 - 0.3 mg/dL Blue Tube HOLD Result Value Ref Range Blue Hold Sample in lab. Gold Tube HOLD Result Value Ref Range Gold Hold Sample in lab. Lavender Tube HOLD Result Value Ref Range Lavender Hold Sample in lab. Hemogram Result Value Ref Range WBC 9.6 (H) 4.0 - 9.5 x10(3)/mcL RBC 5.01 4.58 - 5.54 x10(6)/mcL Hemoglobin 14.8 13.7 - 16.5 gm/dL Hematocrit 46.2 40.5 - 48.5 % MCV 92.2 82.9 - 93.1 fL MCH 29.5 27.5 - 32.1 pg MCHC 32.0 32.0 - 35.7 gm/dL Platelets 147 145 - 357 x10(3)/mcL RDWSD 44.8 36.0 - 45.0 fL RDWCV 13.3 11.4 - 13.8 % MPV 11.7 7.6 - 12.9 fL nRBC % Auto 0.0 % nRBC Abs Auto 0.000 0.000 - 0.000 x10(3)/mcL Differential, Automated Result Value Ref Range Neutrophils % 65.7 % Neutr Abs (ANC) 6.33 (H) 1.70 - 6.10 x10(3)/mcL Lymphocytes % 12.7 % Lymphocytes Abs 1.2 0.9 - 3.2 x10(3)/mcL Monocytes % 16.8 % Monocyte Abs 1.6 (H) 0.3 - 0.9 x10(3)/mcL Eosinophils % 3.4 % Eosinophils Abs 0.3 0.0 - 0.4 x10(3)/mcL Basophils % 0.7 % Basophils Abs 0.1 0.0 - 0.1 x10(3)/mcL Immature Gran % 0.70 % Nell Gran Abs 0.07 (H) 0.00 - 0.04 x10(3)/mcL pro-Brain Natriuretic Peptide Result Value Ref Range ProBNP 1,317 (H) <=125 pg/mL Troponin Result Value Ref Range Troponin-T <0.01 0.00 - 0.00 ng/mL Basic Metabolic Panel (non-fasting) Result Value Ref Range Glucose Lvl 99 65 - 199 mg/dL BUN 23 (H) 10 - 20 mg/dL Creatinine 1.20 0.80 - 1.50 mg/dL Sodium 138 135 - 145 mmol/L Potassium 3.7 3.5 - 5.0 mmol/L Chloride 98 98 - 107 mmol/L CO2 Not Perf 22 - 31 Anion Gap Unable to Calculate 5 - 15 mmol/L Calcium 8.8 8.5 - 10.5 mg/dL Estimated GFR 64 >=60 mL/min/1.73 m?? Scan, Peripheral Blood Result Value Ref Range Plat Estimate Normal RBC Morphology Normal D-Dimer, Quantitative Result Value Ref Range D-Dimer, Quant 239 0 - 500 FEU ng/ml Urinalysis with reflex Culture Specimen: Urine Result Value Ref Range Glucose UA Negative Negative mg/dL Protein UA Negative Negative mg/dL Bilirubin UA Negative Negative mg/dL Urobilinogen UA Normal Normal mg/dL pH UA 5.0 5.0 - 8.0 Blood UA Negative Negative mg/dL Ketones UA Negative Negative mg/dL Nitrite UA Negative Negative Leukocytes UA Negative Negative mcL Appearance UA Clear Clear Spec Leupp UA 1.009 1.006 - 1.030 Color UA Yellow Yellow Culture Reflexed No - I have reviewed the imaging, which is significant for: XR Chest One View Final Result Severe pulmonary vascular congestion. Thank you for letting us participate in the care of this patient. For questions regarding this report, please contact the number below. - I have reviewed the EKG, which is significant for: NSR @ 67bpm, similar to prior Assessment and Plan: Cristian Miner is a 64 y.o. male with a PMH significant for CAD (s/p CABG in 2018), CHF (indeterminate stress echo with estimated EF of 55% in 02/2019), chronic GREENBERG with intermittent oxygen requirement forsymptoms relief (normal recent PFTs) and Afib on amiodarone who presents to the Emergency Departmentwith roughly 3 days of worsening dyspnea, general malaise, arthralgias, anorexia and urinary incontinence. Symptoms are most consistent with a mild CHF exacerbation, which I wonder related to a viral syndrome given general malaise, diarrhea, b/l injected sclera. Evidence toward a CHF exacerbation include; elevated pro-BNP, CXR with vascular congestion, symptomatic improvement with IV lasix in the ED,but remained on his typical home O2 regimen. Also considered a PE, but given his low to intermediaterisk, ordered a d-dimer which was negative and effectively ruling out VTE. Ischemic cause seems unlikely without symptoms, unchanged EKG and normal trop. Besides viral syndrome (adenovirus etc), negative covid, infectious etiologies seem less likely with negative UA and CXR (although difficult interpretation) without obvious opacity. Patient remained stable in the ED, improved with IV lasix and maintained on home chronic oxygen. Recommended that he f/u closely with PCP in the next couple days, start to monitor his weights at home, take an extra dose of lasix this evening. Return precautions were verbally discussed with the patient. The patient expressed understanding that they could come back to the ED at any time and agreed to the follow-up plan. Plan: - Discharge home - Follow up with PCP - Return precautions were discussed with the pt Everton Urrutia DO IM Resident, PGY-3 01/30/20 10:29 PM Everton Urrutia DO Resident 01/30/20 2240 Associated attestation - Palak Kaplan MD - 02/03/2020 9:15 PM EST EMERGENCY ATTENDING NOTE I have independently performed the chiu portions of the history and physical exam.. Pertinant ROS performed as documented in resident note. My physical examination confirms the resident's findings. Nursing notes, vital signs, diagnostic studies, including EKG and imaging, and medical records have been r belinda personally. I have concurrently managed this patient with the resident above. The assessmentand plan were formulated in discussion with me at the time of the visit. I have reviewed the note and agree with the documentation, except where I have noted differently in my note/attestation. Please see for details of History (PMH/MEDS/ALLS/SOC/FAM/ROS), physical exam, diagnostic studies, assessmentand plan. Palak Kaplan MD - 01/30/2020 3:05 PM EST ED PROVIDER NOTE Patient: Cristian Miner Age (): 64 y.o. (1955) SUBJECTIVE CC: GREENBERG HPI: Cristian Miner is a 64 y.o. male with PMH significant for Obesity, MICHELLE, CAD, CABG 2017, CHF, stress echo 6 mo ago indeterminate, 55% LVEF, Sees pulmonology for chronic GREENBERG on daily home O2 as needed when ambulating. Here now with general malaise and aching, increased GREENBERG and at rest, started 3 days ago, gradual onset and worsening, chronic 2 pillows, no new orthopnea or PND, doesn't check wt, feels abdominal bloating, no peripheral edema. Lasix 20 mg TID longstanding Poor appetite, diarrhea yesterday. no fever, slight chilly, chronic dry cough, ex- smoker, no loss of taste or anosmia No sick contacts or COVID exposure, Now urinary incontinence, and urgency, new since this weekend, no dysuria Saw PCP for incontinence and GREENBERG and at rest, and malaise, had COVID test Tuesday at [facility] in [place]-no results yet. Labs: UA leuks and blood, WBC 11, proBNP 1800, Hgb 15, no change in plan Called today and sent to ED No CP, no Near syncope Hx: PMH, PSH, SH, and FH reviewed. Past Medical History: Diagnosis Date ??? CAD (coronary artery disease) angioplasty ??? Mitral regurgitation s/p MVR with ring 09/2017 Past Surgical History: Procedure Laterality Date ??? KNEE ARTHROSCOPY ??? LAPAROTOMY diverticula ? ? PRG JAYLON REAL TIME IMG 2D W PRB IMG ACQUIS I&R N/A 09/15/2017 TRANSESOPHAGEAL ECHOCARDIOGRAM (WRVU 2.55) performed by Td Ayala MD at [facility] ??? PRO CABG, VEIN, TWO N/A 10/07/2017 @CABG, VEIN ONLY;TWO CORONARY VENOUS GRAFTS (WRVU 38.45) performed by Juan Alberto Tiwari MD at [facility] ??? PRO CARDIOVERSION ELECTIVE ARRHYTHMIA EXTERNAL N/A 10/12/2017 CARDIOVERSION-ELECTIVE (WRVU 2.25) performed by Romel Call PA at [facility] ??? PRO ENDOSCOPY W/VIDEO-ASST VEIN HARVEST, CABG N/A 10/07/2017 ENDOSCOPIC HARVEST VEIN(S) FOR CABG (WRVU 0.31) performed by Juan Alberto Tiwari MD at [facility] ??? PRO MITRALPLASTY W PROSTHETIC RING N/A 10/07/2017 @VALVULOPLASTY, MITRAL VALVE, W\CPB; W\PROSTHETIC RING (WRVU 43.28) performed by Juan Alberto Tiwari MD at [facility] No current facility-administered medications on file prior to encounter. Current Outpatient Medications on File Prior to Encounter Medication Sig Dispense Refill ??? furosemide (Lasix) 20 mg Tablet Take 3 tablets by mouth daily. 1-2 tablets 270 tablet 3 ??? buPROPion SR (WELLBUTRIN SR) 150 mg tablet sustained-release 12 hr 150 mg daily. ??? docusate sodium (COLACE) 100 mg Capsule Take 100 mg by mouth 2 times daily. ??? metoprolol tartrate (LOPRESSOR) 50 mg Tablet Take 1 tablet by mouth 2 times daily. 180 tablet 3 ??? AMIOdarone (CORDARONE; PACERONE) 200 mg Tablet Take 0.5 tablets by mouth daily. 30 tablet 0 ??? apixaban (ELIQUIS) 5 mg Tablet Take 1 tablet by mouth 2 times daily. 180 tablet 3 ??? acetaminophen (TYLENOL) 500 mg Tablet Take 2 tablets by mouth every 6 hours as needed for Pain. 30 tablet 1 ??? albuterol 90 mcg/actuation HFA Aerosol Inhaler Inhale 2 puffs into the lungs every 4 hours as needed for Wheezing. Use with spacer ??? aspirin 81 mg Tablet, Delayed Release (E.C.) Take 81 mg by mouth daily. ??? atorvastatin (LIPITOR) 40 mg Tablet Take 40 mg by mouth daily. ??? tamsulosin (FLOMAX) 0.4 mg Capsule, Sust. Release 24 hr Take 0.4 mg by mouth daily. No Known Allergies Family History Problem Relation Age of Onset ??? Cardiomyopathy Father Social History Socioeconomic History ??? Marital status: Spouse name: Not on file ??? Number of children: Not on file ??? Years of education: Not on file ??? 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 Financial resource strain: Not on file ??? Food insecurity Worry: Not on file Inability: Not on file ??? Transportation needs Medical: Not on file Non-medical: Not on file Tobacco Use ??? Smoking status: Former Smoker Packs/day: 2.00 Years: 26.00 Pack years: 52.00 Types: Cigarettes Quit date: 08/17/1995 Years since quittin.4 ??? Smokeless tobacco: Never Used Substance and Sexual Activity ??? Alcohol use: No Comment: one a month ??? Drug use: No ??? Sexual activity: Not on file Lifestyle ??? Physical activity Days per week: Not on file Minutes per session: Not on file ??? Stress: Not on file Relationships ??? Social connections Talks on phone: Not on file Gets together: Not on file Attends rastafarian service: Not on file Active member of club or organization: Not on file Attends meetings of clubs or organizations: Not on file Relationship status: Not on file ??? Intimate partner violence Fear of current or ex partner: Not on file Emotionally abused: Not on file Physically abused: Not on file Forced sexual activity: Not on file Other Topics Concern ??? Not on file Social History Narrative Lives near [place], [place]. 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 Eats pretty healthily with lots of salads. ROS: A full 10 point review of systems was obtained and negative except for that included in the HPI. OBJECTIVE VS: BP 148/75 Pulse 70 Temp 37.4 ??C (99.3 ??F) (Oral) Resp 17 Ht 172.7 cm (5' 8) Wt 136.1 kg(300 lb) SpO2 95% BMI 45.61 kg/m?? Slight tachypnea, resting sat previous is 93 PE: General: This is a well-nourished, well-developed male who appears his stated age. He is alert and able to participate in evaluation. Lying flat comfortably watching TV. NAD. No increased WOB, fully conversant with complete sentences. Skin: Color and turgor appropriate. No lesions, rashes, or masses appreciated. Head: Atraumatic and normocephalic. Neck: Symmetrical with midline trachea., no clear JVD Eyes: sclera injected mildly,non icteric, Visual acuity grossly intact. Lids and periorbital area without edema, erythema, or lesions, conjunctiva without swelling, erythema, injection, or exudate. EOMs intact through extremes of gaze without appreciable nystagmus. Ears: Hearing grossly intact to normal conversation. Auricles without masses, lesions, or swelling. Chest/pulmonary: SpO2 acceptable on RA. Respirations unlabored and regular. Chest wall symmetrical without deformity. Diminished BS on auscultation of anterior and posterior lung moreira. Scant interstitial rales. Chest wall with No tenderness to palpation. Cardiovascular: Regular rate and rhythm. S1 and S2 without splitting. No S3, S4, murmurs, or rubs appreciated on ausculation. Distal pulses intact and symmetrical in upper and lower extremities. No LE edema. Trace LE edema, Abdomen: protuberant abdomen, but no centripital edema, +BS, non-tender to palpation in all quadrants. Without distension, rigidity, organomegaly, palpable masses, or ascites, no CVAT Musculoskeletal: Gait and posture without obvious abnormality. Musculature and extremities without deformity, asymmetry, erythema, effusion, or swelling. No evidence of restricted ROM or gross instability. Neurological: Alert and oriented to person, place, time, and situation. Attention, concentration, language, and fund of knowledge are within expected range. Speech is fluent with normal content. No gross CN deficits, abnormal movements, or FNDs. Psychiatric: Patient cooperative with appropriate behavior, thought content, and affect. LABS: Reviewed and interpreted independently. Recent Results (from the past 72 hour(s)) COVID-19 PCR Specimen: Nasopharyngeal Swab Symptoms->COVID-19 Suspected Result Value Ref Range Rapid SARS-CoV-2 RNA Not Detected Not Detected SARS-CoV-2 Source CHEMIST INTERNSHIP Swab EKG 12 Lead Result Value Ref Range Ventricular rate 67 BPM Atrial Rate 67 BPM P-R Interval 166 ms QRS Duration 112 ms Q-T Interval 502 ms QTC Calculated (Bezet) 530 ms Calculated P [place] 53 degrees Calculated R [place] 69 degrees Calculated T [place] 4 degrees INTERPRETATION Sinus rhythm with Premature atrial complexes Possible Inferior infarct (cited on or before 23-FEB-1995) Prolonged QT Abnormal ECG When compared with ECG of 06-MAR-2019 15:16, Premature atrial complexes are now Present Hepatic Function Panel Result Value Ref Range Total Protein 7.0 6.1 - 8.0 gm/dL Albumin 3.8 3.2 - 5.2 gm/dL AST 25 0 - 39 unit/L ALT 34 0 - 55 unit/L Alk Phos 92 40 - 130 unit/L Total Bilirubin 1.1 0.2 - 1.3 mg/dL Bili, Direct 0.3 0.0 - 0.3 mg/dL Blue Tube HOLD Result Value Ref Range Blue Hold Sample in lab. Gold Tube HOLD Result Value Ref Range Gold Hold Sample in lab. Lavender Tube HOLD Result Value Ref Range Lavender Hold Sample in lab. Hemogram Result Value Ref Range WBC 9.6 (H) 4.0 - 9.5 x10(3)/mcL RBC 5.01 4.58 - 5.54 x10(6)/mcL Hemoglobin 14.8 13.7 - 16.5 gm/dL Hematocrit 46.2 40.5 - 48.5 % MCV 92.2 82.9 - 93.1 fL MCH 29.5 27.5 - 32.1 pg MCHC 32.0 32.0 - 35.7 gm/dL Platelets 147 145 - 357 x10(3)/mcL RDWSD 44.8 36.0 - 45.0 fL RDWCV 13.3 11.4 - 13.8 % MPV 11.7 7.6 - 12.9 fL nRBC % Auto 0.0 % nRBC Abs Auto 0.000 0.000 - 0.000 x10(3)/mcL Differential, Automated Result Value Ref Range Neutrophils % 65.7 % Neutr Abs (ANC) 6.33 (H) 1.70 - 6.10 x10(3)/mcL Lymphocytes % 12.7 % Lymphocytes Abs 1.2 0.9 - 3.2 x10(3)/mcL Monocytes % 16.8 % Monocyte Abs 1.6 (H) 0.3 - 0.9 x10(3)/mcL Eosinophils % 3.4 % Eosinophils Abs 0.3 0.0 - 0.4 x10(3)/mcL Basophils % 0.7 % Basophils Abs 0.1 0.0 - 0.1 x10(3)/mcL Immature Gran % 0.70 % Nell Gran Abs 0.07 (H) 0.00 - 0.04 x10(3)/mcL pro-Brain Natriuretic Peptide Result Value Ref Range ProBNP 1,317 (H) <=125 pg/mL Troponin Result Value Ref Range Troponin-T <0.01 0.00 - 0.00 ng/mL Basic Metabolic Panel (non-fasting) Result Value Ref Range Glucose Lvl 99 65 - 199 mg/dL BUN 23 (H) 10 - 20 mg/dL Creatinine 1.20 0.80 - 1.50 mg/dL Sodium 138 135 - 145 mmol/L Potassium 3.7 3.5 - 5.0 mmol/L Chloride 98 98 - 107 mmol/L CO2 Not Perf 22 - 31 Anion Gap Unable to Calculate 5 - 15 mmol/L Calcium 8.8 8.5 - 10.5 mg/dL Estimated GFR 64 >=60 mL/min/1.73 m?? Scan, Peripheral Blood Result Value Ref Range Plat Estimate Normal RBC Morphology Normal D-Dimer, Quantitative Result Value Ref Range D-Dimer, Quant 239 0 - 500 FEU ng/ml Urinalysis with reflex Culture Specimen: Urine Result Value Ref Range Glucose UA Negative Negative mg/dL Protein UA Negative Negative mg/dL Bilirubin UA Negative Negative mg/dL Urobilinogen UA Normal Normal mg/dL pH UA 5.0 5.0 - 8.0 Blood UA Negative Negative mg/dL Ketones UA Negative Negative mg/dL Nitrite UA Negative Negative Leukocytes UA Negative Negative mcL Appearance UA Clear Clear Spec Leupp UA 1.009 1.006 - 1.030 Color UA Yellow Yellow Culture Reflexed No IMAGING: Reviewed and interpreted independently. XR Chest One View Final Result Severe pulmonary vascular congestion. Thank you for letting us participate in the care of this patient. For questions regarding this report, please contact the number below. possible left effusion, cardiomegaly, interstitial edema ASSESSMENT & PLAN MDM: Cristian Miner is a 64 y.o. male with Hx CHF, CAD, now with 3 days acute on chronic [place] and rest despite increased O2 frequency 2 L, Using Albuterol more without relief, no increased diurectic. Xray c/w CHF with possible concommitant viral syndrome with Conjunctivitis, poor appetite rhinorrhea, diarrhea, chronic cough, no fever. No evidence of clear pneumonia, fair xray for evaluation, no fever or sputum change COVID no exposure but possible, other viral illness; unlikely influenza, possible adeno virus. Consider unlikely ACS Stable sats, not tachycardic, no pleuritic CP, PE unlikely. But Perc age >50, O2 < 95% If dimer negative, no CT scan. CBC, BMP, Troponin, BNP, Dimer ASSESSMENT: Patient has CHF with minimal physical limitation, O2 sats are low, proBNP is elevated [id number], O2 saturation responds to oxygen which patient has at home, patient has no increased work of breathing, no peripheral edema, no chest pain, no fever, no dyspnea evidenced. Patient is responding to Lasix 40 mg IV administered in the emergency department. Normal Dimer 1. CHF 2. Urinary incontinence 3. Viral syndrome PLAN: Patient will continue to diurese while waiting for his Covid test to return, then have nursingambulate him with his oxygen to assure that he remains stable and not significantly symptomatic. If he continues to feel as he does on my evaluation,stable and eager for discharge, he will be discharged home with the pulse oximeter, his home O2, an additional dose of Lasix 40 mg p.o. tonight, and follow-up with his PCP tomorrow or Tuesday for a recheck, admission if he is worsening despite increasing his Lasix dosage. He may need an additional dose tomorrow as well. We are also waiting on his urinalysis as he is having some urinary symptoms and we need to rule out UTI as a source of his malaise and urinary urgency and incontinence. . DISPO: Care transferred to Dr. Hobbs pending UA, ambulatory saturation on O2, Disposition TBD Palak Kaplan MD 01/30/20 [id number] Osiel Morgan PA - 01/30/2020 2:06 PM EST Brief Provider Triage Note 64 y.o. male presents to the emergency department for worsening shortness of breath since Tuesday. Patient does report a history of CHF. Patient has had a cough and chills. No fevers. He did have loose stool yesterday. Patient is nontoxic appearing Basic labs and COVID test/precautions ordered. Osiel Morgan PA 01/30/20 [id number] documented in this encounter Miscellaneous Notes ED Triage - Emily Hobbs RN - 01/30/2020 2:07 PM EST Pt with hx of CHF and SOB/cough, COVID tested recently but no results, increased SOB since Tuesday, no fever but endorsed chills, usually on 2L via n/c, sent by PCP to ED for eval, Chest Heaviness, clear sputum, 91 on RA. documented in this encounter Plan of Treatment Upcoming Encounters Date Type Specialty Care Team Description 11/11/2021 Office Visit Nephrology Jonn Zuniga MD [facility] ER NEPHROLOGY DEPT [place], [place] [address] (Wo rk) documented as of this encounter Procedures Procedure Name Priority Date/Time Associated Comments Diagnosis URINALYSIS WITH STAT 01/30/2020 5:15 PM Result s for this REFLEX CULTURE EST procedure are in the results section. HC D-DIMER, STAT 01/30/2020 4:12 PM Results f or this QUANTITATIVE EST procedure are i n the results section. SCAN, PERIPHERAL STAT 01/30/2020 3:00 PM Resul ts for this BLOOD EST procedure are i n the results section. HEMOGRAM STAT 01/30/2020 3:00 PM Results f or this EST procedure are i n the results section. DIFFERENTIAL, STAT 01/30/2020 3:00 PM Results for this AUTOMATED EST procedure are i n the results section. GOLD TUBE HOLD STAT 01/30/2020 3:00 PM Results for this EST procedure are i n the results section. BLUE TUBE HOLD STAT 01/30/2020 3:00 PM Results for this EST procedure are i n the results section. LAVENDER TUBE HOLD STAT 01/30/2020 3:00 PM Res ults for this EST procedure are i n the results section. TROPONIN STAT 01/30/2020 3:00 PM Results f or this EST procedure are i n the results section. PRO-BRAIN NATRIURETIC STAT 01/30/2020 3:00 PM Results for this PEPTIDE EST procedure are i n the results section. HEPATIC FUNCTION STAT 01/30/2020 3:00 PM Resul ts for this PANEL EST procedure are i n the results section. BASIC METABOLIC PANEL STAT 01/30/2020 3:00 PM Results for this (NON-FASTING) EST procedure are in the results section. XR CHEST ONE VIEW STAT 01/30/2020 2:38 PM Resu lts for this EST procedure are i n the results section. EKG 12-LEAD STAT 01/30/2020 2:35 PM Results f or this EST procedure are i n the results section. RAPID COVID-19 PCR STAT 01/30/2020 2:18 PM Res ults for this ([facility]/APD/[facility]) EST procedure are in the results section. documented in this encounter Results Urinalysis with reflex Culture (01/30/2020 5:15 PM EST) [facility] Method Time Signature Glucose UA Negative Negative [facility] mg/dL [facility] Protein UA Negative Negative [facility] mg/dL [facility] Bilirubin UA Negative Negative [facility] mg/dL [facility] Comment: Clinical correlation required for positi ve Urine Bilirubin results as false positive may occur with some drugs and d rug related products. If a false positive is suspected a serum total bili watt should be considered if clinically indicated. Urobilinogen UA Normal Normal mg/dL [facility] pH UA 5.0 5.0 - 8.0 [facility] Blood UA Negative Negative mg/dL [facility] Ketones UA Negative Negative mg/dL [facility] Nitrite UA Negative Negative [facility] Leukocytes UA Negative Negative [facility] LABORATORY Appearance UA Clear Clear [facility] Spec Leupp UA 1.009 1.006 - 1.030 [facility] Color UA Yellow Yellow [facility] Culture Reflexed No [facility] Specimen Anatomical Collection Method Collection Time Receive d Time (Source) Location / / Volume Laterality Urine specimen 01/30/2020 5:15 PM 020 5:47 (specimen) EST PM EST Resulting Agency Comment Spec In Lab Delores Mehta MD URINE ORDERABLES Performing Organization Address City/State/[facility] [place] [address] D-Dimer, Quantitative (01/30/2020 4:12 PM EST) athologist [facility] D-Dimer, Quant 239 0 - 500 [facility] FEU ng/ml [facility] Comment: The D-Dimer assay is used to aid in the diagnosis of deep vein thrombosis and pulmonary embolism. A normal D-Dimer res ult (less than 500 FEU ng/ml) has a negative predictive value of approximate ly 95% for the exclusion of acute PE and DVT when there is low to moderate pr etest probability. To use age adjusted cutoff: Age x 10 ng/ml. Specimen Anatomical Collection Method Collection Time Receive d Time (Source) Location / / Volume Laterality Blood specimen 01/30/2020 4:12 PM 020 4:20 (specimen) EST PM EST Resulting Agency Comment Spec In Lab Palak Kaplan MD HEMATOLOGY ORDERABLES Performing Organization Address [facility]/ZIP Code Phon e Number [address] Scan, Peripheral Blood (01/30/2020 3:00 PM EST) [facility] Plat Estimate Normal [facility] RBC Morphology Normal [facility] Specimen Anatomical Collection Method Collection Time Receive d Time (Source) Location / / Volume Laterality Blood specimen Venous Draw / 01/30/2020 3:00 PM 2019 3:36 (specimen) Unknown EST PM EST Resulting Agency Comment Spec In Lab Palak Kaplan MD HEMATOLOGY ORDERABLES Performing Organization Address City/[facility]/[place] [address] (ABNORMAL) Basic Metabolic Panel (non-fasting) (01/30/2020 3:00 PM EST) [facility] Glucose Lvl 99 65 - 199 [facility] mg/dL [facility] Comment: Diabetes: >=200 mg/dL plus symp toms BUN 23 (H) 10 - 20 mg/dL [facility] Creatinine 1.20 0.80 - 1.50 mg/dL [facility] Sodium 138 135 - 145 mmol/L [facility] Potassium 3.7 3.5 - 5.0 mmol/L [facility] Comment: Please note: ??Patients with WBC >100,00 0 may have falsely elevated Potassium levels. ??For accurate Potassium quantif ication in these patients send serum separator tube (gold top) for subsequent determinations. ??Contact the Clinical Chemistry Laboratory if there are any qu estions. Chloride 98 98 - 107 mmol/L [facility] CO2 Not Perf - [facility] Comment: Add-on request. Sample too old to perform test. Anion Gap Unable to Calculate 5 - 15 mmol/L [facility] Calcium 8.8 8.5 - 10.5 mg/dL [facility] Estimated GFR 64 >=60 mL/min/1.73 m?? [facility] Comment: This patient? s estimated glomerular filtration rate (eGFR) is between 64 mL/min/1.73 m2 (patients with less muscl e mass per kg body weight) and 75 mL/min/1.73 m2 (patients with more muscl e mass per kg body weight) as determined by the CKD-EPI equation. Asse ssment of eGFR is not appropriate when creatinine concentrations are rapidly ch anging. For clinical decisions where creatinine clearance will affect therapy , a 24-hour urine creatinine clearance may be advised. Assignment of CKD stage 1 ? 5 for patients with an eGFR near the transition point between stages may be based on cli nical assessment of muscle mass and symptoms in addition to eGFR. Specimen Anatomical Collection Method Collection Time Receive d Time (Source) Location / / Volume Laterality Blood specimen Venous Draw / 01/30/2020 3:00 PM 2019 3:36 (specimen) Unknown EST PM EST Resulting Agency Comment Spec In Lab Palak Kaplan MD CHEMISTRY ORDERABLES Performing Organization Address City/State/[place] [address] Troponin (01/30/2020 3:00 PM EST) athologist Signature Troponin-T <0.01 0.00 - 0.00 PETRA LUANN ng/mL [facility] Comment: The 99th percentile for Troponin T is le ss than 0.01 ng/mL, any detectable cTnT concentration using this assay should be considered elevated. According to the third universal definit ion of myocardial infarction the following criteria with a clinical prese ntation consistent with acute myocardial ischemia meets the diagnosis for a myocardial infarction (CA). Detection of a rise and/or fall of cTnT, with at least one value greater than the 99th percentile (> or = 0.01) and wi th at least one of the following ?? Symptoms of ischemia ?? New or presumed new significant ST-se gment-T wave (ST-T) changes or new left bundle branch block (LBBB) ?? Development of pathologic Q waves in the ECG ?? Imaging evidence of new loss of viabl e myocardium or new regional wall motion abnormality ?? Identification of an intracoronary th rombus by angiography or autopsy Samples for cTnT testing should be obtai sangtia serially upon first assessment and again 3 to 6 hours later. If the clinica l suspicion is high and previous samples have been negative an additional sample may be indicated. Reference: Third [place] Definition of Myocardial Infarction. Journal of the [place] [employer] 2012;60:1581-98 Specimen Anatomical Collection Method Collection Time Receive d Time (Source) Location / / Volume Laterality Blood specimen Venous Draw / 01/30/2020 3:00 PM 2019 3:36 (specimen) Unknown EST PM EST Resulting Agency Comment Spec In Lab Palak Kaplan MD CHEMISTRY ORDERABLES Performing Organization Address City/State/[place] [address] (ABNORMAL) pro-Brain Natriuretic Peptide (01/30/2020 3:00 PM EST) athologist Signature ProBNP 1,317 (H) <=125 [facility] LUANN pg/mL [facility] Specimen Anatomical Collection Method Collection Time Receive d Time (Source) Location / / Volume Laterality Blood specimen Venous Draw / 01/30/2020 3:00 PM 2019 3:36 (specimen) Unknown EST PM EST Resulting Agency Comment Spec In Lab Palak Kaplan MD CHEMISTRY ORDERABLES Performing Organization Address City/[facility]/[place] [address] (ABNORMAL) Differential, Automated (01/30/2020 3:00 PM EST) [facility] Method Time Signature Neutrophils % 65.7 % [facility] Neutr Abs (ANC) 6.33 (H) 1.70 - [facility] 6.10 [facility] x10(3)/[facility] LABORATORY Lymphocytes % 12.7 % [facility] Lymphocytes Abs 1.2 0.9 - 3.2 [facility] x10(3)/[facility] LABORATORY Monocytes % 16.8 % [facility] Monocyte Abs 1.6 (H) 0.3 - 0.9 [facility] x10(3)/[facility] LABORATORY Eosinophils % 3.4 % [facility] Eosinophils Abs 0.3 0.0 - 0.4 [facility] x10(3)/[facility] LABORATORY Basophils % 0.7 % [facility] Basophils Abs 0.1 0.0 - 0.1 [facility] x10(3)/[facility] LABORATORY Immature Gran % 0.70 % [facility] Comment: Immature granulocytes(IG's)percentage an d absolute count will include metamyelocytes, myelocytes, and promyelo cytes. Blood smears from CBCs yielding IG's will be scanned manually for concor dance. If this scan disagrees with the automated IG or if promyelocytes are not ed, a manual differential will be performed. Nell Gran Abs 0.07 (H) 0.00 - 0.04 x10(3)/[facility] LABORATORY Specimen Anatomical Collection Method Collection Time Receive d Time (Source) Location / / Volume Laterality Blood specimen Venous Draw / 01/30/2020 3:00 PM 2019 3:36 (specimen) Unknown EST PM EST Resulting Agency Comment Spec In Lab Palak Kaplan MD HEMATOLOGY ORDERABLES Performing Organization Address City/[facility]/[place] [address] (ABNORMAL) Hemogram (01/30/2020 3:00 PM EST) P athologist Signature WBC 9.6 (H) 4.0 - 9.5 [facility] x10(3)/[facility] LABORATORY RBC 5.01 4.58 - [facility] 5.54 [facility] x10(6)/[facility] LABORATORY Hemoglobin 14.8 13.7 - [facility] 16.5 gm/dL [facility] Hematocrit 46.2 40.5 - [facility] 48.5 % [facility] MCV 92.2 82.9 - [facility] 93.1 [facility] LABORATORY MCH 29.5 27.5 - [facility] 32.1 pg [facility] MCHC 32.0 32.0 - [facility] 35.7 gm/dL [facility] Platelets 147 145 - 357 [facility] x10(3)/[facility] LABORATORY RDWSD 44.8 36.0 - [facility] 45.0 [facility] LABORATORY RDWCV 13.3 11.4 - [facility] 13.8 % [facility] MPV 11.7 7.6 - 12.9 [facility] LABORATORY nRBC % Auto 0.0 % [facility] nRBC Abs Auto 0.000 0.000 - [facility] 0.000 [facility] x10(3)/[facility] LABORATORY Specimen Anatomical Collection Method Collection Time Receive d Time (Source) Location / / Volume Laterality Blood specimen Venous Draw / 01/30/2020 3:00 PM 2019 3:36 (specimen) Unknown EST PM EST Resulting Agency Comment Spec In Lab Palak Kaplan MD HEMATOLOGY ORDERABLES Performing Organization Address City/State/ZIP Code Phon e Number [address] Lavender Tube HOLD (01/30/2020 3:00 PM EST) Patholo gist Method Time Signature Lavender Hold Sample in [facility] lab. [facility] Specimen Anatomical Collection Method Collection Time Receive d Time (Source) Location / / Volume Laterality Blood specimen Venous Draw / 01/30/2020 3:00 PM 2019 3:15 (specimen) Unknown EST PM EST Everton Urrutia DO HEMATOLOGY ORDERABLES Performing Organization Address City/[facility]/[place] [address] Gold Tube HOLD (01/30/2020 3:00 PM EST) P athologist Signature Gold Hold Sample in [facility] LABORATORY Specimen Anatomical Collection Method Collection Time Receive d Time (Source) Location / / Volume Laterality Blood specimen Venous Draw / 01/30/2020 3:00 PM 2019 3:15 (specimen) Unknown EST PM EST Everton King Ghada MORENO CHEMISTRY ORDERABLES Performing Organization Address City/[facility]/ZIP Code Phon e Number [address] Blue Tube HOLD (01/30/2020 3:00 PM EST) P athologist Signature Blue Hold Sample in [facility] LABORATORY Specimen Anatomical Collection Method Collection Time Receive d Time (Source) Location / / Volume Laterality Blood specimen Venous Draw / 01/30/2020 3:00 PM 2019 3:15 (specimen) Unknown EST PM EST Everton King Ghada MORENO HEMATOLOGY ORDERABLES Performing Organization Address City/[facility]/ZIP [facility] [place] [place] [address] Hepatic Function Panel (01/30/2020 3:00 PM EST) P athologist Signature Total Protein 7.0 6.1 - 8.0 [facility] gm/dL [facility] Albumin 3.8 3.2 - 5.2 [facility] gm/dL [facility] AST 25 0 - 39 PETRA LUANN unit/L [facility] ALT 34 0 - 55 [facility] unit/L [facility] Alk Phos 92 40 - 130 [facility] [employer] unit/L [facility] Total 1.1 0.2 - 1.3 [facility] [employer] Bilirubin mg/dL [facility] Bili, Direct 0.3 0.0 - 0.3 PETRA QUIROGA mg/dL [facility] Specimen Anatomical Collection Method Collection Time Receive d Time (Source) Location / / Volume Laterality Blood specimen 01/30/2020 3:00 PM 020 3:14 (specimen) EST PM EST Resulting Agency Comment Spec In Lab Ryan Td CHEMISTRY ORDERABLES Performing Organization Address City/State/ZIP Code Phon e Number [facility] [address] XR Chest One View (01/30/2020 2:38 PM EST) Anatomical Region Laterality Modality Chest N/A Digital Radiography Specimen (Source) Anatomical Location Collection Method / Collectio n Time Received Time / Laterality Volume Impressions 01/30/2020 2:49 PM EST Severe pulmonary vascular congestion. Thank you for letting us participate in the care of this patient. For questions regarding this report, please contact e number below. ? Narrative 01/30/2020 2:49 PM EST EXAMINATION: XR CHEST ONE VIEW CLINICAL HISTORY: cough, Shortness of br eath. TECHNIQUE: Portable AP chest radiograph COMPARISON: Chest x-ray dated 03/13/2019 FINDINGS: Status post median sternotomy and, CABG and valve repair. There is severe pulmonary vascular congestion wit h interstitial edema. No pneumothorax or large pleural effusion. Procedure Note Eder Chinchilla DO - 01/30/2020Formatti ng of this note might be different from the original. EXAMINATION: XR CHEST ONE VIEW CLINICAL HISTORY: cough, Shortness of br eath. TECHNIQUE: Portable AP chest radiograph COMPARISON: Chest x-ray dated 03/13/2019 FINDINGS: Status post median sternotomy and, CABG and valve repair. There is severe pulmonary vascular congestion wit h interstitial edema. No pneumothorax or large pleural effusion. IMPRESSION Severe pulmonary vascular congestion. Thank you for letting us participate in the care of this patient. For questions regarding this report, please contact e number below. Delores Mehta MD IMG DX ORDERABLES EKG 12 Lead (01/30/2020 2:35 PM EST) [facility] Method Time Signature Ventricular rate 67 BPM MUSE SYSTEM Atrial Rate 67 BPM MUSE SYSTEM P-R Interval 166 ms MUSE SYSTEM QRS Duration 112 ms MUSE SYSTEM Q-T Interval 502 ms MUSE SYSTEM QTC Calculated 530 ms MUSE SYSTEM (Bezet) Calculated P [place] 53 degrees MUSE SYSTEM Calculated R [place] 69 degrees MUSE SYSTEM Calculated T [place] 4 degrees MUSE SYSTEM INTERPRETATION Sinus rhythm with Premature atrial complexes MUSE SYSTEM Possible Inferior infarct (cited on or before 23-FEB-1995) Prolonged QT Abnormal ECG When compared with ECG of 06-MAR-2019 15:16, Premature atrial complexes are now Present Confirmed by MD AVERY, SUKHWINDER ([id number]) on 02/01/2020 8:51:4 1 AM Specimen Anatomical Collection Method Collection Time Receive d Time (Source) Location / / Volume Laterality 01/30/2020 2:35 PM 0 8:51 EST AM EST Delores Mehta MD ECG ORDERABLES Performing Organization Address City/State/ZIP Code Phon e Number MUSE SYSTEM COVID-19 PCR (01/30/2020 2:18 PM EST) [facility] Method Time Signature SARS-CoV-2 Not Detected Not Detected PETRA RNA PCR [facility] Comment: This result should be interpreted in com bination with the clinical observations, patient history and epidem iological information. For testing of asymptomatic individuals, assay performa nce characteristics and clinical utility have not been evaluated. Testing for SARS-CoV-2 (Severe acute respiratory syndrome coronavirus 2, form erly known as 2019 novel coronavirus or 2019-nCoV) to aid in the diagnosis of CO VID-19 is performed using the Simplexa COVID-19 Direct Assay by [employer] as authorized by the FDA issued Emergency Use Authorization (EUA). This assay is intended for In-vitro Diagnostic (IVD) use with nasopharyngeal swabs collected from individuals meeting the CDC criteria for testing. assay is performed based on the instructions for use and additional guid ana lilia provided by the FDA. Testing is performed in the Microbiology Laboratory within the Department of Pathology and Laboratory Medicine at [facility], certified under the Clinical Laboratory Improvement Amendmen ts of 1988 (CLIA), 42 U.S.C. section 263a, to perform high complexity tests. Assay performance has been verified according to clinical laboratory regulat ory requirements. Test results are provided above. A resul t of Not Detected indicates that the viral RNA target is not present but does not preclude SARS-CoV-2 infection. False negative results may occur if a sp ecimen is improperly collected, transported or handled; if amplification inhibitors are present; or if inadequate numbers of viral particles ar e present in the specimen. A result of Detected suggests a current or recent infection and the patient is presumed to be infected. Positive and negative pr edictive values for this test are highly dependent on disease prevalence. A result of Invalid indicates the inability to conclusively determine the presence or absence of SARS-CoV-2 RNA in the sample which can be due to a vari ety of factors. Recollection is recommended in the case of an invalid re sult. CDC COVID-19 criteria for testing on hum an specimens and clinical management guidance information are available at [facility] CDC Coronavirus Disease 2019 (COVID-19) webpage under Information fo r Healthcare Professionals (https://www.cdc.gov/coronavirus/2019-nc ov/hcp/index.html). Additional information about this and ot her EUA tests can be found in provider and patient fact sheets at the following FDA website: https://www.fda.gov/medical-devices/ivksjrddkkv-wslkhvp-1203-thjux-87-udnehwhvn- ege-fcpoxffqbqmwgx-bllwrfs-devices/rjjcj-nerdxmmaioc-ousg SARS-CoV-2 Source [employer] Swab [facility] Specimen (Source) Anatomical Collection Method Collection Time Re ceived Time Location / / Volume Laterality Nasopharyngeal swab 01/30/2020 2:18 01/29 (specimen) PM EST 3:28 PM EST Comment: Symptoms->COVID-19 Suspected Resulting Agency Comment Spec In Lab Delores Mehta MD MICROBIOLOGY - GENERAL ORDER MIKE Performing Organization Address City/State/ZIP Code Phon e Number [place] [id number] documented in this encounter Visit Diagnoses Diagnosis Acute on chronic systolic congestive hea rt failure Acute on chronic systolic heart failure Viral syndrome Unspecified viral infection, in conditio ns classified elsewhere and of unspecified site documented in this encounter Administered Medications Inactive Administered Medications - up to 3 most recent administrations Medication Order MAR Action Action Date Dose Rate Site furosemide (Lasix) (10 mg/mL) Given 01/30/2020 4:02 PM EST 40 mg injection 40 mg 40 mg, Intravenous, ONCE, 1 dose, On Tue01/30/20 at 1527 documented in this encounter Active and Recently Administered Medications Times are shown in EST. Scheduled Medication Order 01/28/2020 01/29/2020 01/30/2020 furosemide (Lasix) (10 mg/mL) injection 40 mg (COMPLETED) 1602 (Given - Provider: Donna Eisenberg RN) 40 mg, Intravenous, ONCE, 1 dose, Tue01/30/20 at 1527 documented in this encounter Additional Health Concerns Infection Onset Date Last Indicated Resolved Time Rule Out COVID-19 01/30/2020 01/30/2020 01/30/2020 6:2 3 PM EST documented as of this encounter Care Teams Engraving Supervisor Relationship Specialty Start Date End Date Es Clinton PA PCP - General Family Medicine 11/27/19 [address] [place] [address] documented as of this encounter
--- OUTSIDE RECORDS SUMMARY | 2021-10-28 14:10 | XMS_ITS | Encounter Summary ---
:1955 Author Organization [facility] Address [address] [place] [address] Care Team Providers Name Role Phone Unavailable Primary Care Provider Unavailable Encounter Details Date Type Department Care Team Description 12/30/1999 Hospital Encounter [facility] Emergency, Emergency Department - MD Claire Main [place] [address] [place] [address] Social History Tobacco Use Types Packs/Day Years Used Date Never Assessed Sex Assigned at Date Recorded Not on file documented as of this encounter Discharge Disposition Disposition Code Departure Means Destination Home or Self Care documented in this encounter Plan of Treatment Not on filedocumented as of this encounter Visit Diagnoses Not on filedocumented in this encounter
--- OUTSIDE RECORDS SUMMARY | 2021-10-28 14:10 | XMS_ITS | Encounter Summary ---
:1955 Author Organization [facility] [place] [address] Care Team Providers Name Role Phone Es Clinton Primary Care Provider Reason for Visit Reason Comments Shortness of Breath Hypertension Coronary Artery Disease Atrial Fibrillation Encounter Details Date Type Department Care Team Description 03/11/2020 Office Visit Cardiology at [facility] Shalom Grant, Coronary artery disease, ang solis presence unspecified, unspecified vessel or lesion type, unspecified whether cher-ae heights or transplanted heart; [facility] NORBERTO Paroxysmal atrial fibrillation; Drive [facility] MICHELLE (obstructive sleep apnea ); [place], [place] Dr Palpitations; [phone] [place] [address] SOB (shortness of breath); [phone] Nonrheumatic mi tral valve regurgitation; (Work) Congestive heart failure, unspecified HF chronicity, unspecified heart failure type; Chronic h eart failure with preserved ejection fraction Social History Tobacco Use Types Packs/Day Years Used Date Former Smoker Cigarettes 2 26 Quit: 08/16/18 96 Smokeless Tobacco: Never Used Tobacco Cessation: Counseling Given: Yes Alcohol Use Standard Drinks/Week Comments No 0 [...] Sign Reading Time Taken Comments Blood Pressure 143/80 03/11/2020 4:25 PM EST Pulse 65 03/11/2020 4:25 PM EST Temperature - - Respiratory Rate - - Oxygen Saturation 94% 03/11/2020 4:25 PM EST Inhaled Oxygen Concentration - - Weight 140.2 kg (309 lb) 03/11/2020 4:25 PM EST Height 172.7 cm (5' 8) 03/11/2020 4:25 PM EST Body Mass Index 46.98 03/11/2020 4:25 PM EST documented in this encounter Progress Notes Shalom Grant PA - 03/11/2020 4:40 PM EST Images from the original note were not included. [facility] Interventional Cardiology Reason for Visit: routine follow up for coronary artery disease, heart failure, and atrial fibrillation Primary provider: NORBERTO Cage [address] [place] [address] ?? Problem List: Obesity CAD: remote VA. CABG 2018 (SVG-OM, SVG-rPDA), with MV repair A fib, on amio, eliquis. Paroxysmal. Since 2018 cardiac surgery MICHELLE on CPAP MR: severe mr s/p repair 30mm ring CHF: chronic. EF 55%, previously EF 45% post CABG Patient Active Problem List Diagnosis ??? CHF (congestive heart failure) TTE 08/02/2018 ([facility]): ??? Morbid obesity ??? Atrial fibrillation 10/12/17: [...] CAD, angioplasty in 1980s DSE 03/13/2019: SUMMARY: ?? 1. Dobutamine stress echo is [...] noted below. HPI: Cristian Miner is a 64 y.o. male who is seen in cardiology clinic for routine follow up for his chronic dyspnea, and to evaluate and manage his other cardiovascular conditions as detailed below. His past medical history is notable for paroxysms of atrial fibrillation first noted in 2017 at the time of his cardiac surgery for severe mitral valve regurgitation and severe coronary artery disease (SVG-OM, SVG-rPDA, and 30mm physio ring for MV repair) with prior DCCV and maintained on eliquis and a miodarone, hypertension, obesity, MICHELLE on CPAP with home supplemental O2. He did unfortunately present to the emergency room about 2 months ago with acute exacerbation of heart failure with progressive dyspnea. He was given some IV lasix. His Pro-BNP was elevated at 1300, his troponin was negative, and his creatinine was stable at 1.2. His CXR at that time showed severe congestive pulmonary vasculature. His symptoms improved, and he later saw his PCP who added PRN metolazone, which he has taken a few times in the last month when noting increased leg edema. At last visit, we had ordered PFT evaluation and visit with pulmonology. He had a DSE with echo and this did not show any evidence of ischemia, albeit at a submaximal stresslevel. We did previously increase lasix which helped his symptoms. No rest issues. His home BPs are reported as 110s systolic. He continues to deny any chest pain, palpitations or discomfort. He does get winded and SOBOE. No fevers chills malaise or cough. He does feel a bit dizzy at times. His weights are 301-307 pounds. Uses CPAP. Uses inhaler. No hematuria and no other bleeding issues. MEDS: atorva 80 Aspirin 81 amio 100 apixaban 5 BID Furosemide 60 am, 20 pm Metolazone prn Metop 50 bid ALLERGIES: No Known Allergies ?? MEDICATIONS: ?? Current Outpatient Medications: ??? omeprazole (PriLOSEC) 20 mg Capsule, Delayed Release(E.C.), Take 20 mg by mouth daily., Disp: , Rfl: ??? metOLazone (Zaroxolyn) 2.5 mg Tablet, Take 2.5 mg by mouth as needed., Disp: , Rfl: ??? potassium chloride (KLOR-CON) 20 mEq Packet, Take 20 mEq by mouth daily., Disp: , Rfl: ??? furosemide (Lasix) 20 mg Tablet, Take 3 tablets by mouth daily. 1-2 tablets, Disp: 270 tablet, Rfl: 3 ??? buPROPion SR (WELLBUTRIN SR) 150 mg tablet sustained-release 12 hr, 150 mg daily., Disp: , Rfl: ??? docusate sodium (COLACE) 100 mg Capsule, Take 100 mg by mouth 2 times daily., Disp: , Rfl: ??? metoprolol tartrate (LOPRESSOR) [...] by mouth daily., Disp: , Rfl: ??? atorvastatin (LIPITOR) 40 mg Tablet, Take 40 mg by mouth daily., Disp: , Rfl: ??? tamsulosin (FLOMAX) 0.4 mg Capsule, Sust. Release 24 hr, Take 0.4 mg by mouth daily., Disp: , Rfl: ?? ROS: CONSTITUTIONAL: No weight loss, fever, chills but + fatigue. ?? HEENT: Eyes: No visual loss, blurred vision, double vision or scleral iscterus. No sinus tenderness or palpable thyromegaly. SKIN: No rashes. ?? CARDIOVASCULAR: No chest pain, chest pressure or chest discomfort. No palpitations No edema. No orthopnea or PND. No syncope. + lightheadedness RESPIRATORY: + shortness of breath, no cough or sputum. No hemoptysis GASTROINTESTINAL: No anorexia, nausea, vomiting or diarrhea. No abdominal pain. No BRBPR or melena ?? GENITOURINARY: No hematuria or dysuria NEUROLOGICAL: No headache, dizziness, syncope, paralysis, ataxia, numbness or tingling in the extremities. No change in bowel or bladder control. ?? MUSCULOSKELETAL: No muscle, back pain, joint pain or stiffness. ?? HEMATOLOGIC: No anemia, bleeding or bruising. ?? LYMPHATICS: No enlarged nodes. No history of splenectomy. ?? PSYCHIATRIC: No history of depression or anxiety. ?? ENDOCRINOLOGIC: No reports of sweating, cold or heat intolerance. No polyuria or polydipsia. ?? ALLERGIES: No history of asthma, hives, eczema or rhinitis. . PHYSICAL EXAM: Constitutional: In general, alert and oriented X 3 obese male who can easily ambulate around the exam room. No rales or wheezing. Regular rate today. No murmurs. Vitals Office Visit from 03/11/2020 in Cardiology at [facility] Weight (!) 140.2 kg (309 lb) Height 172.7 cm (5' 8) BSA (Calculated - sq m) 2.59 sq meters BMI (Calculated) 46.98 Heart Rate 65 BP 143/80 SpO2 94 % Eyes: No scleral icterus or pale conjunctiva; no corneal arcus Ears, Nose, mouth, throat: No sinus tenderness; moist oral mucosa; no epistaxis; no visible thyromegaly Respiratory: Clear to auscultation bilaterally with good air entry bilaterally. No significant wheezing heard today. GI: No abdominal pain; + bowel sounds; [...] No LE edema LLE: No LE edema no ankle edema RUE: 2+ radial pulse LUE: 2+ radial pulse ?? DIAGNOSTIC TESTS: ?? ECG 03/11/2020 Sinus. Prior inferior infarct. Narrow QRS. Similar to previous. A/P: Cristian Miner is a 64 y.o. male with a history of coronary disease, paroxysmal atrial fibrillation, obstructive sleep apnea and recurrent dyspnea who presents in follow up. Unfortunately he had a recent CHF exacerbation and required some IV diuresing. His dyspnea is multifactorial with deconditioning, MICHELLE, obesity, but his heart failure has recently been sub-optimally managed leading to recent ED visit. His coronary disease is stable. ??He had a recent stress echo which was negative for ischemia at that threshold (did barely miss the target HR). ??He has no chest pain, CCS class 0. ??He is on appropriate medical therapy which we will continue. ? A fib, perioperative, paroxysmal. ??None seen on zio last year. ??On amio 100mg daily and metoprololfor rate control. ??No signs/symptoms of stroke. ??No bleeding issues. ??No symptoms. ??Continue current management. His PCP recently added metolazone, a potent diuretic for PRN use. He has no lower extremity edema, but his abdomen is quite large. It is challenging to identify any ascites or abdominal distension. We reviewed the nature of his coronary disease, the pathophysiology of atrial fibrillation, and the strategy of care for his heart failure. Goals are to be symptom free and to stay out of the hospital and reduce the need for repeat procedures. We discussed how sometimes the oral diuretics cannot keepup with the volume overload and the oral tablets are not absorbed as well thus necessitating IV infusions. ?? NYHA III, no rest symptoms. No angina. Consider RHC for volemia assessment. Get repeat Pro-BNP I am concerned for Cristian's advanced heart failure and possible exarcerbations possibly requiring admission for IV diuretics. Will follow up in 2-3 weeks. Recommendations: 1: increase furosemide to 60mg AM, 20mg mid day. F/u 2-4 weeks telephone NORBERTO Collier 03/11/2020 5:20 PM [facility] Pager [phone] documented in this encounter Plan of Treatment Upcoming Encounters Date Type Specialty Care Team Description 11/11/2021 Office Visit Nephrology Jonn Zuniga MD [facility] ER NEPHROLOGY DEPT [place], [place] [address] (Wo rk) documented as of this encounter Procedures Procedure Name Priority Date/Time Associated Diagnosis Comme nts EKG 12-LEAD Routine 03/11/2020 4:18 PM Coronary artery Result s for this EST disease, angina procedure ar e in presence unspecified, the re sults unspecified vessel or sectio n. lesion type, unspecified whether cher-ae heights or transplanted heart Paroxysmal atrial fibrillation MICHELLE (obstructive sleep apnea) Palpitations SOB (shortness of breath) Nonrheumatic mitral valve regurgitat ion Congestive heart failure, unspecified HF chronicity, unspecified heart failure type documented in this encounter Results EKG 12 Lead (03/11/2020 4:18 PM EST) [facility] Method Time Signature Ventricular rate 62 BPM MUSE SYSTEM Atrial Rate 62 BPM MUSE SYSTEM P-R Interval 174 ms MUSE SYSTEM QRS Duration 116 ms MUSE SYSTEM Q-T Interval 470 ms MUSE SYSTEM QTC Calculated 477 ms MUSE SYSTEM (Bezet) Calculated P [place] 66 degrees MUSE SYSTEM Calculated R [place] 54 degrees MUSE SYSTEM Calculated T [place] 77 degrees MUSE SYSTEM INTERPRETATION Normal sinus rhythm MUSE SYSTEM Inferior infarct (cited on or before 23-FEB-1995) Abnormal ECG When compared with ECG of 30-JAN-2020 14:35, Premature atrial complexes are no longer Present Confirmed by MD Chelsie, Jl Aguilar ([id number]) on 03/12/2020 9:00:4 6 AM Specimen Anatomical Collection Method Collection Time Receive d Time (Source) Location / / Volume Laterality 03/11/2020 4:18 PM 9:00 EST AM EST Skip Lugo MD ECG ORDERABLES Performing Organization Address City/State/ZIP Code Phon e Number MUSE SYSTEM documented in this encounter Visit Diagnoses Diagnosis Coronary artery disease, angina presence unspecified, unspecified vessel or lesion type, unspecified whether cher-ae heights or [place] spl[place] heart Paroxysmal atrial fibrillation Atrial fibrillation MICHELLE (obstructive sleep apnea) Obstructive sleep apnea (adult) (pediatr ic) Palpitations SOB (shortness of breath) Shortness of breath Nonrheumatic mitral valve regurgitation Congestive heart failure, unspecified HF chronicity, unspecified heart failure type Chronic heart failure with preserved eje ction fraction documented in this encounter Care Teams Award Machine Operator Relationship Specialty Start Date End Date Es Clinton PA PCP - General Family Medicine 11/27/19 [address] [place] [address] documented as of this encounter
--- OUTSIDE RECORDS SUMMARY | 2021-10-28 14:10 | XMS_ITS | Encounter Summary ---
:1955 Author Organization [facility] [place] [address] Care Team Providers Name Role Phone Es Clinton Primary Care Provider Encounter Details Date Type Department Care Team Description 11/30/2019 Telephone Pulmonology at [facility] [place] [address] Social History Tobacco Use Types Packs/Day Years Used Date Former Smoker Cigarettes 2 Quit: 08/16/18 96 Smokeless Tobacco: Never Used [...] this encounter Miscellaneous Notes Telephone Encounter - Suad Patterson RT - 11/30/2019 1:19 PM EDT faxed updated oxygen suman to [facility] documented in this encounter Plan of Treatment Upcoming Encounters Date Type Specialty Care Team Description 11/11/2021 Office Visit Nephrology Jonn Zuniga MD [facility] ER NEPHROLOGY [place], [place] [address] (Wo rk) documented as of this encounter Visit Diagnoses Not on filedocumented in this encounter Care Teams Home Health Aide Relationship Specialty Start Date End Date Es Clinton PA PCP - General Family Medicine 11/27/19 [address] [place] [address] documented as of this encounter
--- OUTSIDE RECORDS SUMMARY | 2021-10-28 14:10 | XMS_ITS | Encounter Summary ---
:1955 Author Organization [facility] [place] [address] Care Team Providers Name Role Phone Es Clinton Primary Care Provider Reason for Referral Consultation (Routine) - Authorized Specialty Diagnoses / Procedures Referred By Contact Refer red To Contact Nephrology Diagnoses Chronic kidney disease, unspecified CKD stage Congestive heart failure, unspecified HF chronicity, unspecified heart failure type Es [place] PA [facility] 2m [address] [address] Fax: Referral ID Status Reason Start Expiration Visits Visits Date Date Requested Authorized [id number] Authorized Consult, 08/30/2021 08/30/2022 12 12 Test & Treat PCP Updated and/or Approved Encounter Details Date Type Department Care Team Description 08/30/2021 Transcribe Orders eDH Incoming Sergio Clinton ki dney disease, unspecified CKD stage; Referrals NORBERTO Cooper Congestive heart failure, unspecified HF chronicity, unspecified heart failure type [phone] [address] [place] [address] Social History Tobacco Use Types Packs/Day Years Used Date Former Smoker Cigarettes 04 18 Quit: 08/16/18 96 Smokeless Tobacco: Never Used [...] as of this encounter Plan of Treatment Upcoming Encounters Date Type Specialty Care Team Description 11/11/2021 Office Visit Nephrology Jonn Zuniga MD [facility] NEPHROLOGY [place], [place] [address] (Wo rk) Scheduled Referrals Name Type Priority Associated Diagnoses Order S chedule Referral to Outpatient Referral Routine Chronic kidney Ordere d: Nephrology disease, unspecified 022 CKD stage Congestive heart failure, unspecified HF chronicity, unspecified heart failure type documented as of this encounter Visit Diagnoses Diagnosis Chronic kidney disease, unspecified CKD stage Congestive heart failure, unspecified HF chronicity, unspecified heart failure type documented in this encounter Care Teams Grey Goods Examiner Relationship Specialty Start Date End Date Es Clinton PA PCP - General Family Medicine 11/27/19 [address] [place] [address] documented as of this encounter
--- OUTSIDE RECORDS SUMMARY | 2021-10-28 14:10 | XMS_ITS | Encounter Summary ---
:1955 Author Organization [facility] Address [address] [place] [address] Care Team Providers Name Role Phone Иван Seymour MD Primary Care Provider [phone] Encounter Details Date Type Department Care Team Description 07/24/[address] [facility] Anjel Summers MD conversion [address] [place] [address] [place], [place] [address] [phone] Social History Tobacco Use Types Packs/Day Years Used Date Never Assessed Sex Assigned at Date Recorded Not on file documented as of this encounter Plan of Treatment Not on filedocumented as of this encounter Procedures Procedure Name Priority Date/Time Associated Diagnosis Comme [facility] SURGICAL PATHOLOGY Routine 07/24/2007 0:00 EDT Re sults for this procedure are i n the results section. documented in this encounter Results SURGICAL PATHOLOGY (07/24/2007 0:00 EDT) Pathology Report: SURGICAL PATHOLOGY REPORT LIZETH SANTILLAN Reports generated via electronic interface contain jeff ginal data; LAB however they are lacking the format of the original re port. Caution should be taken when reading/interpreting unfo rmatted reports. Name: ? JUSTIN GREY ? Accession #: ? [id number] ? : ? 1955 (Age: 51) ??M ? Collect Date: ? 07/24/2007 ? Location: ? [facility] ? Receive Date: ? 008 ? Provider: ANJEL MURRAY MD Copy to: LEOBARDO AVILES MD ? Final Pathologic Diagnosis: A. ?Ileocecal valve, polypectomy: 1. ?Tubular adenoma. B. ?Colon, descending, polypectomy: 1. ?Tubular adenoma. C. ?Colon, sigmoid, polypectomies: ? 1. ?? Fragments of hyperplastic polyps. Document reviewed and electronically signed by: AMLATHI DAO MD Report ??Date: 07/27/2007 12:48 By the signature above, the attending physician certif ies that he/she has personally conducted a gross and/or microscopic examin ation of the described specimens and rendered or confirmed the above diagnosi s. Specimen(s) Received: A. ?Ileocecal valve polyp B. ? Descending colon polyp C. ? Sigmoid polyp x 5 Clinical History: ? Rectal bleeding, F/H colon cancer Gross Description: ? Received in [facility] fixative labelled Grey and ileocecal valve polyp are three slightly firm piec es of tissue which range from 0.3 x 0.1 x 0.1 cm to 0.2 x 0.2 x 0.1 cm, which are submitted intact as (A). [facility] Grey and descending colon polyp is a 0.3 x 0.2 x 0.2 cm firm piece of tissue which is sub mitted intact as (B). [facility] Grey and s igmoid polyp x 5 are seven pieces of tissue which range from 0.4 x 0.3 x 0.2 cm to 0.2 x 0.2 x 0.1 cm with three submitted as (C1), two as (C2) and remainin g two as (C3). ??(Elizabeth Blanco)/mpl End of Report Specimen Performing Organization Address City/State/ZIP Code Phon e Number [facility] [address] [place] [address] [facility] [address] [place] [address] documented in this encounter Visit Diagnoses Not on filedocumented in this encounter Care Teams Audio Operator Relationship Specialty Start Date End Date Иван Seymour MD PCP - General 01/08/09 01/19/[address] [place] [phone] documented as of this encounter
--- OUTSIDE RECORDS SUMMARY | 2021-10-28 14:10 | XMS_ITS | Encounter Summary ---
:1955 Author Organization [facility] Address [place] [id number] Care Team Providers Name Role Phone Es Clinton Primary Care Provider Reason for Referral Diagnostic Test (Routine) - Closed Specialty Diagnoses / Procedures Referred By Contact Refer red To Contact Radiology Diagnoses Dyspnea on exertion Exercise hypoxemia Class 3 severe obesity with body mass index (BMI) of 45.0 to 49.9 in adult, unspecified obesity type, unspecified whether serious comorbidity present Omer Mota MD [facility] Rad Ct Scan Procedures CT Chest wo Contrast (Generic) [facility] [place] [address] [place] [address] Referral ID Status Reason Start Date Expiration Date Visits V isits Requested Authorized [id number] Closed Specialty 11/28/2019 05/28/2021 1 1 Service Requested Reason for Visit Diagnostic Test (Routine) - Closed Specialty Diagnoses / Procedures Referred By Contact Refer red To Contact Radiology Diagnoses Dyspnea on exertion Exercise hypoxemia Class 3 severe obesity with body mass index (BMI) of 45.0 to 49.9 in adult, unspecified obesity type, unspecified whether serious comorbidity present Omer Mota MD [facility] Rad Ct Scan Procedures CT Chest wo Contrast (Generic) [facility] [address] [place] [address] [place] [address] Referral ID Status Reason Start Date Expiration Date Visits V isits Requested Authorized [id number] Closed Specialty 11/28/2019 05/28/2021 1 1 Service Requested Encounter Details Date Type Department Care Team Description 02/14/[address] [place] [facility] [place] Mota Dyspnea on exertion; [facility] MD Erika Exercise hypoxemia; [facility] Class 3 severe obesity with body mass index (BMI) of 45.0 to 49.9 in adult, unspecified obesity type, unspecified whether serious comorbidity present [facility] [id number] Pulmonary [phone] [place] [address] Social History Tobacco Use Types Packs/Day Years [...] on file documented as of this encounter Medications at Time of Discharge [...] Tablet daily. documented as of this encounter Plan of Treatment Upcoming Encounters Date Type Specialty Care Team Description 11/11/2021 Office Visit Nephrology Jonn Zuniga MD [facility] [place] [id number] (Wo rk) documented as of this encounter Procedures Procedure Name Priority Date/Time Associated Diagnosis Comme nts CT CHEST WO Routine 02/14/2020 10:44 AM Dyspnea on e xertion Results for this CONTRAST (GENERIC) EST Exercise hypo xemia procedure are in Class 3 severe the results obesity with body section. mass index (BMI) of 45.0 to 49.9 in adult, unspecified obesity type, unspecified whether serious comorbidity present documented in this encounter Results CT Chest wo Contrast (Generic) (02/14/2020 10:44 AM EST) Anatomical Region Laterality Modality Chest Computed Tomography Specimen (Source) Anatomical Location Collection Method / Collectio n Time Received Time / Laterality Volume Impressions 02/14/2020 11:43 AM EST No evidence of dynamic airway collapse, interstitial lung disease, or pulmonary nodule warranting follow-up imaging. I have personally reviewed the image(s) and the resident's interpretation and agree with the findings, Anne Rodriguez MD at 02/14/2020 11:43 AM Thank you for letting us participate in the care of this patient. For questions regarding this report, please contact e number below. ? Narrative 02/14/2020 11:43 AM EST EXAMINATION: CT CHEST WO CONTRAST (GENERIC) CLINICAL HISTORY: Shortness of breath Exertional dyspnea and hypoxemia in an o bese ex-smoker. ??Unremarkable chest x-ray. ??Please evaluate for nodules (ap prently history of this), any evidence of amiodarone toxicity and for tracheobronc homalacia, excessive dynamic airway collapse. TECHNIQUE: 3.75 mm thick axial contiguous sections were obtained through the chest via helical acquisition without intravenous contrast administration during inspiratory breath-holding. Thin-section reconstructions as well as coronal and sagittal reformatted images were generat ed. 2.5 mm thick sections were obtained thro ugh the chest via helical acquisition using low radiation dose technique durin g expiratory breath-holding. 3 axial cine sections were obtained usin g low radiation dose technique during dynamic free breathing. COMPARISON: Chest radiograph 01/30/2020. FINDINGS: Pulmonary parenchyma: 4 mm nodular opaci ty in the right upper lobe (series 5 image 166); no follow-up required per 20 17 Fleischner Society guidelines. Scattered tiny subpleural nodules likely represent intrapulmonary lymph nodes. Mild centrilobular emphysema. Airways: Mild central bronchial wall thi ckening. No bronchiectasis. Trachea morphology: Round. Central airways ttynzxrp-mi-rizkwwefr phylicia freddy dimensions: Trachea at level of aortic arch: Breath-hold inspiration: 18 mm Breath-hold expiration: 15 mm Dynamic inspiration: 20 mm Dynamic expiration: 15 mm Trachea just above the duong: Breath-hold inspiration: 17 mm Breath-hold expiration: 15 mm Dynamic inspiration: 20 mm Dynamic expiration: 15 mm Right mainstem bronchus: Breath-hold inspiration: 13 mm Breath-hold expiration: 11 mm Dynamic inspiration: 10 mm Dynamic expiration: 8 mm Left mainstem bronchus: Breath-hold inspiration: 11 mm Breath-hold expiration: 10 mm Dynamic inspiration: 9 mm Dynamic expiration: 8 mm Pleura: No pneumothorax or pleural effus ion. Lymph nodes:No lymphadenopathy by size c riteria. Heart, pericardium, and great vessels: P rosthetic mitral valve. Moderate to marked [place] coronary artery calcificat ion; status post coronary bypass graft. Nonaneurysmal thoracic aorta. Normal nnamdi iber main pulmonary artery. Other mediastinal structures: No signifi cant findings. Lower neck: No significant findings. Upper abdomen: No significant findings. Body wall soft tissues: No significant f indings. Skeletal structures: Multilevel degenera tive changes of the thoracic spine with proliferative endplate change. Procedure Note Anne Rodriguez MD - 02/14/2020Formatt ing of this note might be different from the original. EXAMINATION: CT CHEST WO CONTRAST (GENER IC) CLINICAL HISTORY: Shortness of breath Exertional dyspnea and hypoxemia in an o bese ex-smoker. Unremarkable chest x-ray. Please evaluate for nodules (appr ently history of this), any evidence of amiodarone toxicity and for tracheobronc homalacia, excessive dynamic airway collapse. TECHNIQUE: 3.75 mm thick axial contiguous sections were obtained through the chest via helical acquisition without intravenous contrast administration during inspiratory breath-holding. Thin-section reconstructions as well as coronal and sagittal reformatted images were generat ed. 2.5 mm thick sections were obtained thro [facility] [place] the chest via helical acquisition using low radiation dose technique durin g expiratory breath-holding. 3 axial cine sections were obtained usin g low radiation dose technique during dynamic free breathing. COMPARISON: Chest radiograph 01/30/2020. FINDINGS: Pulmonary parenchyma: 4 mm nodular opaci ty in the right upper lobe (series 5 image 166); no follow-up required per 20 17 Fleischner Society guidelines. Scattered tiny subpleural nodules likely represent intrapulmonary lymph nodes. Mild centrilobular emphysema. Airways: Mild central bronchial wall thi ckening. No bronchiectasis. Trachea morphology: Round. Central airways lvyfbdat-cm-zpxeulwaa phylicia freddy dimensions: Trachea at level of aortic arch: Breath-hold inspiration: 18 mm Breath-hold expiration: 15 mm Dynamic inspiration: 20 mm Dynamic expiration: 15 mm Trachea just above the duong: Breath-hold inspiration: 17 mm Breath-hold expiration: 15 mm Dynamic inspiration: 20 mm Dynamic expiration: 15 mm Right mainstem bronchus: Breath-hold inspiration: 13 mm Breath-hold expiration: 11 mm Dynamic inspiration: 10 mm Dynamic expiration: 8 mm Left mainstem bronchus: Breath-hold inspiration: 11 mm Breath-hold expiration: 10 mm Dynamic inspiration: 9 mm Dynamic expiration: 8 mm Pleura: No pneumothorax or pleural effus ion. Lymph nodes:No lymphadenopathy by size c riteria. Heart, pericardium, and great vessels: P rosthetic mitral valve. Moderate to marked [place] coronary artery calcificat ion; status post coronary bypass graft. Nonaneurysmal thoracic aorta. Normal nnamdi iber main pulmonary artery. Other mediastinal structures: No signifi cant findings. Lower neck: No significant findings. Upper abdomen: No significant findings. Body wall soft tissues: No significant f indings. Skeletal structures: Multilevel degenera tive changes of the thoracic spine with proliferative endplate change. IMPRESSION No evidence of dynamic airway collapse, interstitial lung disease, or pulmonary nodule warranting follow-up imaging. I have personally reviewed the image(s) and the resident's interpretation and agree with the findings, Anne Rodriguez MD at 02/14/2020 11:43 AM Thank you for letting us participate in the care of this patient. For questions regarding this report, please contact th e number below. Electronically signed by: Anne Rodriguez MD, 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
--- OUTSIDE RECORDS SUMMARY | 2021-10-28 14:10 | XMS_ITS | Encounter Summary ---
:1955 Author Organization [facility] Address [address] [place] [address] Care Team Providers Name Role Phone Иван Seymour MD Primary Care Provider [phone] Unknown, Provider Primary Care Provider Encounter Details Date Type Department Care Team Description 10/18/2019 Lab Requisition [facility] Outr Resulting Lab, Pathology & Laboratory Provider [facility] [address] [place] [address] Social History Tobacco Use Types Packs/Day Years Used Date Never Assessed Sex Assigned at Date Recorded Not on file documented as of this encounter Plan of Treatment Not on filedocumented as of this encounter Procedures Procedure Name Priority Date/Time Associated Diagnosis Comme nts COVID-19 TEST [facility] Today 10/18/2019 13:05 LAB PCR EDT COVID-19 TESTING Routine 10/18/2019 13:05 Results for this EDT procedure are i n the results section. documented in this encounter Results COVID-19 TEST [facility] LAB PCR (10/18/2019 13:05 EDT) Specimen Swab - Entire nasopharynx (body structur e) Performing Organization Address City/State/ZIP Code Phon e Number [facility] [address] [place] [address] SERVICES COVID-19 TESTING (10/18/2019 13:05 EDT) COVID-19 rt-PCR Negative Negative [facility] Result Comment: [facility] This test has not been FDA c leared or approved. This test has been authorized by FDA under an EUA for use by authorized laboratories. This test has been authorized only for detection of nucleic acid fro SERVICES m 2019-nCoV, not for any oth er viruses or pathogens. This test is only authorized for the duration of the declaration that circumstances exist justifying the authorization of emergency use of in vitro d iagnostic tests for detectio n and/or diagnosis of 2019-nCoV under section 564(b)(1) of Act, 21 U.S.C ?? 360bbb-3(b) (1), unless the authorization is terminated or revoked sooner. Negative results do not prec lude 2019-nCoV infection and should not be used as the sole basis for treatment or other patient management decisions. Negative results must be combined with clinical observa tions, patient history, and epidemiological informatio n. Performed on the [employer] instrument Performing Lab [place] [facility] Lab [facility] SERVICES Specimen Swab Performing Organization Address City/State/ZIP Code Phon e Number [facility] [address] [place] [address] SERVICES documented in this encounter Visit Diagnoses Not on filedocumented in this encounter Care Teams [employer] Teacher Relationship Specialty Start Date End Date Иван Seymour MD PCP - General 01/08/09 01/19/[address] [place] [phone] Unknown, Russ, PCP - General 01/20/21 documented as of this encounter
--- OUTSIDE RECORDS SUMMARY | 2021-10-28 14:10 | XMS_ITS | Clinical Summary ---
:1955 Author Organization [facility] [place] [address] Care Team Providers Name Role Phone Es Clinton Primary Care Provider Allergies No known active allergies Medications Medication Sig Dispensed Refills Start Date End Date Status albuterol 90 Inhale 2 puffs 0 Ac tive mcg/actuation HFA into the lungs Aerosol Inhaler every 4 hours as needed for Wheezing. Use with spacer aspirin 81 mg Tablet, Take 81 mg by 0 Active Delayed Release (E.C.) mouth daily. tamsulosin (FLOMAX) 0.4 Take 0.4 mg by 0 Active mg Capsule, Sust. mouth daily. Release 24 hr acetaminophen (TYLENOL) Take 2 tablets 30 tablet 1 10/18/2017 Active 500 mg Tablet by mouth every 6 hours as needed for Pain. docusate sodium Take 100 mg by 0 Active (COLACE) 100 mg Capsule mouth as needed. metoprolol tartrate Take 1 tablet by 180 tablet 3 03/03/2018 Active (LOPRESSOR) 50 mg mouth 2 times Tablet daily. AMIOdarone (CORDARONE; Take 0.5 tablets 30 tablet 0 03/03/2018 Active PACERONE) 200 mg Tablet by mouth daily. apixaban (ELIQUIS) 5 mg Take 1 tablet by 180 tablet 3 03/03/19 19 Active Tablet mouth 2 times daily. buPROPion SR 150 mg daily. 0 02/09/2019 Ac tive (WELLBUTRIN SR) 150 mg tablet sustained-release 12 hr omeprazole (PriLOSEC) Take 20 mg by 0 Active 20 mg Capsule, Delayed mouth daily. Release(E.C.) potassium chloride Take 20 mEq by 0 Active (KLOR-CON) 20 mEq mouth daily. Packet Jardiance 10 mg Tablet Take 10 mg by 0 02/20/2021 Active mouth daily. spironolactone Take 50 mg by 0 02/20/2021 Active (Aldactone) 25 mg mouth daily. Tablet rosuvastatin (Crestor) Take 20 mg by 0 02/20/2021 Active 20 mg Tablet mouth daily. torsemide (Demadex) 20 Take 20 mg by 0 02/20/2021 Active mg Tablet mouth 2 times daily. valsartan (Diovan) 40 Take 40 mg by 0 Active mg Tablet mouth daily. torsemide (Demadex) 20 Take 1 tablet by 30 tablet 0 09/15/2021 Active mg TabletIndications: mouth daily. Coronary artery disease, unspecified vessel or lesion type, unspecified whether angina present, unspecified whether [place] or transplanted heart, Paroxysmal atrial fibrillation, MICHELLE (obstructive sleep apnea), SOB (shortness of breath), Palpitations, Nonrheumatic mitral valve regurgitation, Congestive heart failure, unspecified HF chronicity, unspecified heart failure type Active Problems Problem Noted Date CHF exacerbation 10/14/2021 CHF (congestive heart failure) 02/21/2020 Overview: Images from the original note were not i ncluded. TTE 08/02/2018 ([facility]): Morbid obesity 07/26/2017 Atrial fibrillation 07/26/2017 Overview: 10/12/17: Direct current cardioversion MICHELLE (obstructive sleep apnea) 07/26/2017 SOB (shortness of breath) 07/26/2017 Palpitations 07/26/2017 Mitral regurgitation 07/26/2017 Overview: Formatting of this note is dif ferent from the original. 10/07/17??Mitral valve repair, CABGx2 (t wo venous grafts) MV repair, reduction annuloplasty with a 30mm physio II CABGx2, SVG-> OM, SVG->PDA CAD (coronary artery disease) 07/22/2017 Overview: 10/07/17 Mitral valve repair, CABGx2 (two venous grafts) Prior history CAD, angioplasty in 1980s DSE 03/13/2019: SUMMARY: 1. Dobutamine stress echo is indetermina te for ischemia because the target HR was not achieved. There is no ischemia at this near-target level of stress. 2. The patient achieved a maximum heart rate of 131 bpm which is 82% of the maximum predicted heart rate (159 be ats/min). The target heart rate was not achieved. 3. The peak dose of Dobutamine infused w as 40 ug/kg/min and 0.50 mg of Atropine. The patient did not express fe elings of chest discomfort. 4. Echo: The left ventricle is moderatel y dilated. There is normal global left ventricular systolic functio n. Ejection fraction is estimated to be 55%. There are left vent ricular segmental wall motion abnormalities present, as shown in the d iagram below. The size of the prosthetic mitral valve is 30mm. The pro sthetic mitral valve was implanted on 10/07/2017. Status-post quoc cement of a mitral valve ring. Mild (1+/4+) mitral prosthesis regurgita tion is present. At peak stress, the regional WMA are mostly unch anged as coded below. Other segments recruit. 5. ECG: NSR. No significant ST changes w ith stress. PVCs noted (trigeminy). 6. Other details as noted below. Encounters Date Type Specialty Care Team Description 10/14/2021 - Emergency Emergency Medicine Jared Esparza CHF ex acerbation 10/15/2021 MD King (Primary Dx) Pk Trevizo MD Ratanamaneechat, Suphagaphan, MD Bhise, Daniel Garcia MD 10/07/2021 Telephone Cardiology Karen Wei RN 09/15/2021 Office Visit Cardiology Shalom Grant Coronary arter y disease, unspecified vessel or lesion type, unspecified whether angina present, unspecified whether [place] or transplanted heart; L, PA Paroxysmal atri al fibrillation; MICHELLE (obstructiv e sleep apnea); SOB (shortness of breath); Palpitations; Nonrheumatic mi tral valve regurgitation; Congestive hear t failure, unspecified HF chronicity, unspecified heart failure type 08/30/2021 Transcribe Orders Primary Care [place], Chronic ki dney disease, unspecified CKD stage; NORBERTO Cooper Congestive hea rt failure, unspecified HF chronicity, unspecified heart failure type from Last 3 Months Family History Medical History Relation Comments Cardiomyopathy Father Relation Status Comments Father 78 Social History Tobacco Use Types Packs/Day Years [...] Assigned at Date Recorded Not on file Last Filed Vital Signs Vital Sign Reading Time Taken Comments Blood Pressure 106/67 10/15/2021 8:00 AM EDT Pulse 65 10/15/2021 8:30 AM EDT Temperature 36.9 ??C (98.4 ??F) 10/15/2021 8:00 AM EDT Respiratory Rate 22 10/15/2021 8:00 AM EDT Oxygen Saturation 96% 10/15/2021 8:00 AM EDT Inhaled Oxygen Concentration - - Weight 159.7 kg (352 lb) 10/14/2021 6:39 PM EDT Height 172.7 cm (5' 8) 09/15/2021 1:36 PM EDT Body Mass Index 53.52 09/15/2021 1:36 PM EDT Plan of Treatment Upcoming Encounters Date Type Specialty Care Team Description 11/11/2021 Office Visit Nephrology Jonn Zuniga MD [facility] [place], [place] [address] (Wo rk) Health Maintenance Due Date Last Done Comments Covid-19 Vaccine (#1) 1960 Pneumococcal Vaccine: At-Risk 11/21/1963 5-64yrs (1 - PCV) HIV screen 11/21/1975 Hepatitis C Screening 11/21/1975 Tdap adult 1976 Tetanus vaccine 1976 Colonoscopy 2002 Zoster vaccine (1 of 2) 11/21/2007 Advance Directive 2012 Influenza (Flu) vaccine (1 of 1 - 10/22/2021 Influenza standard series) Diabetes Screening (HgbA1C or 10/15/2024 10/15/2021, 2021, Glucose) 10/14/2021, Additional history exists Medical Devices Implanted Type Area Ortho Nurse Device Shelf Model / Identifier Expiration Serial / Date Lot Cable,Cut,Edg,Blnt,Ss,3tpr ([id number]) - [id number] IMPLANTS N/A: [employer] 03/16/2022 [id number] / Implanted: Qty: 1 on 10/07/2017 by Juan Alberto Tiwari MD at [facility] [employer] - / [id number] Procedures Procedure Name Priority Date/Time Associated Comments Diagnosis T4, FREE Routine 10/15/2021 2:00 AM Results f or this EDT procedure are i n the results section. HC THYROID Routine 10/15/2021 2:00 AM Results f or this STIMULATING HORMONE, EDT procedu re are in SERUM the results section. HEPATIC FUNCTION Routine 10/15/2021 2:00 AM Resul ts for this PANEL EDT procedure are i n the results section. HC HEMOGLOBIN A1C Routine 10/15/2021 2:00 AM Resu lts for this EDT procedure are i n the results section. BASIC METABOLIC PANEL Routine 10/15/2021 2:00 AM Results for this (NON-FASTING) EDT procedure are in the results section. HC MAGNESIUM, SERUM Routine 10/15/2021 2:00 AM Re sults for this EDT procedure are i n the results section. DIFFERENTIAL, STAT 10/14/2021 8:22 PM Results for this AUTOMATED EDT procedure are i n the results section. HEMOGRAM STAT 10/14/2021 8:22 PM Results f or this EDT procedure are i n the results section. GOLD TUBE HOLD STAT 10/14/2021 8:22 PM Results for this EDT procedure are i n the results section. BLUE TUBE HOLD STAT 10/14/2021 8:22 PM Results for this EDT procedure are i n the results section. HC PHOSPHORUS, SERUM STAT 10/14/2021 8:22 PM R esults for this EDT procedure are i n the results section. HC MAGNESIUM, SERUM STAT 10/14/2021 8:22 PM Re sults for this EDT procedure are i n the results section. HC PROBNP STAT 10/14/2021 8:22 PM Results f or this EDT procedure are i n the results section. HC TROPONIN T STAT 10/14/2021 8:22 PM Results for this EDT procedure are i n the results section. BASIC METABOLIC PANEL STAT 10/14/2021 8:22 PM Results for this (NON-FASTING) EDT procedure are in the results section. HC CBC,PLT & AUTO STAT 10/14/2021 8:22 PM DIFF EDT XR CHEST PA AND STAT 10/14/2021 7:26 PM Result s for this LATERAL EDT procedure are i n the results section. EKG 12-LEAD STAT 10/14/2021 6:43 PM Results f or this EDT procedure are i n the results section. LAB SCAN 10/01/2021 12:00 Results for this AM EDT procedure are i n the results section. LAB SCAN 08/17/2021 12:00 Results for this AM EDT procedure are i n the results section. from Last 3 Months Results (ABNORMAL) TSH [place] (10/15/2021 2:00 AM EDT) athologist Signature TSH 5.57 (H) 0.27 - 4.20 [facility] mcIU/mL [facility] Comment: Reference Interval (mcIU/mL): Females: ??First Trimester: 0.23-3.88 ??Second Trimester: 0.22-3.90 ??Third Trimester: 0.44-4.66 Specimen Anatomical Collection Method Collection Time Receive d Time (Source) Location / / Volume Laterality Blood 10/15/2021 2:00 AM 2:14 EDT AM EDT Resulting Agency Comment Spec In Lab Mima Valle MD CHEMISTRY ORDERABLES Performing Organization Address City/State/[place] [address] T4, free (10/15/2021 2:00 AM EDT) athologist Signature Free T4 1.12 0.93 - 1.70 [facility] ng/dL [facility] Comment: Reference Interval (ng/dL): Females: ??First Trimester: 0.97-1.68 ??Second Trimester: 0.77-1.51 ??Third Trimester: 0.77-1.49 Specimen Anatomical Collection Method Collection Time Receive d Time (Source) Location / / Volume Laterality Blood 10/15/2021 2:00 AM 2 2:32 EDT AM EDT Resulting Agency Comment Spec In Lab Mima Valle MD CHEMISTRY ORDERABLES Performing Organization Address City/State/ZIP Code Phon e Number [address] Magnesium (10/15/2021 2:00 AM EDT)Only the most recent of2 resultswithin the time period is included. athologist Signature Magnesium 0.89 0.69 - 1.07 [facility] mmol/L [facility] Specimen Anatomical Collection Method Collection Time Receive d Time (Source) Location / / Volume Laterality Blood 10/15/2021 2:00 AM 2 2:14 EDT AM EDT Resulting Agency Comment Spec In Lab Mima Valle MD CHEMISTRY ORDERABLES Performing Organization Address City/[facility]/ZIP Code Phon e Number [address] (ABNORMAL) Hemoglobin A1c (10/15/2021 2:00 AM EDT) Analysis Performed At Patho logist Time Signature Hemoglobin A1C 6.5 (H) 4.3 - 5.6 [facility] % [facility] Comment: Reference Range: 4.3 - 5.6% 5.7 - 6.4% - Increased Risk of Developin g Diabetes Mellitus >= 6.5% - Consistent with diagnosis of D iabetes Mellitus In the absence of hyperglycemia (i.e. pl asma glucose > 200 mg/dL) or classic symptoms of hyperglycemia a repeat measu rement of HbA1c should be performed on a separate sample to confirm the diagnos is. Diagnosis and Classification of Diabetes Mellitus, Diabetes Care 2013; 36: Suppl. 1, S67-11 Est Avg Gluc 139 mg/dL [facility] Comment: eAG equivalents for HbA1c percentages: HbA1c(%) ?eAG(mg/dL) 6.0 ?126 6.5 ?140 7.0 ?154 7.5 ?169 8.0 ?183 8.5 ?197 9.0 ?212 9.5 ?226 10.0 ? 240 Limitations: The eAG calculation has not been validated on women, individuals below 18 years old and above 70 years old, and individuals with hemoglobinopathies. Additional resources are available on e ADA website. Shalom ANDERS, Errol J, Meri R, et al. ??Tr anslating the A1C assay into estimated average glucose values. ??Diabetes Care 2008:31(8):2632-3607. Specimen Anatomical Collection Method Collection Time Receive d Time (Source) Location / / Volume Laterality Blood 10/15/2021 2:00 AM 2 2:14 EDT AM EDT Resulting Agency Comment Spec In Lab Mima Valle MD CHEMISTRY ORDERABLES Performing Organization Address City/State/ZIP Code Phon e Number [place] [address] Hepatic Function Panel (10/15/2021 2:00 AM EDT) P athologist Signature Total Protein 6.2 6.1 - 8.0 [place] LUANN g/dL [facility] Albumin 3.4 3.2 - 5.2 [facility] LUANN g/dL [facility] AST 15 0 - 39 [facility] unit/L [facility] ALT 12 0 - 55 [facility] unit/L [facility] Alk Phos 92 40 - 130 [facility] unit/L [facility] Total 0.3 0.2 - 1.3 [facility] Bilirubin mg/dL [facility] Bili, Direct 0.1 0.0 - 0.3 [facility] mg/dL [facility] Specimen Anatomical Collection Method Collection Time Receive d Time (Source) Location / / Volume Laterality Blood 10/15/2021 2:00 AM 2:14 EDT AM EDT Resulting Agency Comment Spec In Lab Mima Valle MD CHEMISTRY ORDERABLES Performing Organization Address City/State/ZIP Code Phon e Number [place] [id number] (ABNORMAL) Basic Metabolic Panel (non-fasting) (10/15/2021 2:00 AM EDT)Only the most recent of2 resultswithin the time period is included. athologist Signature Glucose Lvl 129 65 - 199 [facility] mg/dL [facility] Comment: Diabetes: >=200 mg/dL plus symp toms BUN 18 10 - 20 mg/dL [facility] Creatinine 1.43 0.80 - 1.50 mg/dL [facility] Sodium 140 135 - 145 mmol/L [facility] Potassium 3.6 3.5 - 5.0 mmol/L [facility] Comment: Please note: ??Patients with WBC >100,00 0 may have falsely elevated Potassium levels. ??For accurate Potassium quantif ication in these patients send serum separator tube (gold top) for subsequent determinations. ??Contact the Clinical Chemistry Laboratory if there are any qu estions. Chloride 101 98 - 107 mmol/L [facility] CO2 29 22 - 31 mmol/L [facility] Anion Gap 10 5 - 15 mmol/L [facility] Calcium 8.6 8.5 - 10.5 mg/dL [facility] Estimated GFR 55 (L) >=60 mL/min/1.73 m?? [facility] Comment: This patient's estimated GFR was calcula rocio using the 2020 CKD-EPI equation. The estimated GFR can vary from the priti ured GFR by up to 30% in the absence of rapidly changing kidney function. Assess ment of the estimated GFR is not appropriate when creatinine concentratio ns are rapidly changing. For clinical situations in which a more precise estim ate of GFR is necessary, consider alternative methods of GFR estimation mario ch as a 24-hour urine creatinine clearance. Assignment of CKD stage 1-5 for patients with an eGFR near the transition point between stages may be based on clinical assessment of muscle mass and symptoms in addition to eGFR. Specimen Anatomical Collection Method Collection Time Receive d Time (Source) Location / / Volume Laterality Blood 10/15/2021 2:00 AM 2:14 EDT AM EDT Resulting Agency Comment Spec In Lab Mima Valle MD CHEMISTRY ORDERABLES Performing Organization Address City/State/[facility] [place] [address] (ABNORMAL) Hemogram (10/14/2021 8:22 PM EDT) Analysis Performed At Patho logist Time Signature WBC 8.3 4.0 - 9.5 [facility] x10(3)/[facility] LABORATORY RBC 4.84 4.58 - [place] LUANN 5.54 [facility] x10(6)/[facility] LABORATORY Hemoglobin 14.3 13.7 - [place] LUANN 16.5 g/dL [facility] Hematocrit 44.5 40.5 - 1Ring[facility]ANN 48.5 % [facility] MCV 91.9 82.9 - [place] LUANN 93.1 [facility] LABORATORY MCH 29.5 27.5 - 1[facility] 32.1 pg [facility] MCHC 32.1 32.0 - [place] LUANN 35.7 g/dL [facility] Platelets 165 145 - 357 [facility] x10(3)/[facility] LABORATORY RDWSD 46.5 (H) 36.0 - 1Ring[facility] 45.0 [facility] LABORATORY RDWCV 13.6 11.4 - [facility] 13.8 % [facility] MPV 11.3 7.6 - 12.9 [facility] LABORATORY nRBC % Auto 0.0 % [facility] nRBC Abs Auto 0.000 0.000 - [facility] 0.000 [facility] x10(3)/[facility] LABORATORY Specimen Anatomical Collection Method Collection Time Receive d Time (Source) Location / / Volume Laterality Blood 10/14/2021 8:22 PM 8:40 EDT PM EDT Resulting Agency Comment Spec In Lab Josesito THORNTON HEMATOLOGY ORDERABLES Performing Organization Address City/State/[place] [address] (ABNORMAL) Differential, Automated (10/14/2021 8:22 PM EDT) [facility] gist Method Time Signature Neutrophils % 65.5 % [facility] Neutr Abs (ANC) 5.46 1.70 - [facility] 6.10 [facility] x10(3)/[facility] LABORATORY Lymphocytes % 16.0 % [facility] Lymphocytes Abs 1.3 0.9 - 3.2 [facility] x10(3)/[facility] LABORATORY Monocytes % 13.4 % [facility] Monocyte Abs 1.1 (H) 0.3 - 0.9 [facility] x10(3)/[facility] LABORATORY Eosinophils % 2.3 % [facility] Eosinophils Abs 0.2 0.0 - 0.4 [facility] x10(3)/[facility] LABORATORY Basophils % 1.1 % [facility] Basophils Abs 0.1 0.0 - 0.1 [facility] x10(3)/[facility] LABORATORY Immature Gran % 1.70 % [facility] Comment: Immature granulocytes(IG's)percentage an d absolute count will include metamyelocytes, myelocytes, and promyelo cytes. Blood smears from CBCs yielding IG's will be scanned manually for concor dance. If this scan disagrees with the automated IG or if promyelocytes are not ed, a manual differential will be performed. Nell Gran Abs 0.14 (H) 0.00 - 0.04 x10(3)/mcL [facility] Specimen Anatomical Collection Method Collection Time Receive d Time (Source) Location / / Volume Laterality Blood 10/14/2021 8:22 PM 8:40 EDT PM EDT Resulting Agency Comment Spec In Lab Josesito THORNTON HEMATOLOGY ORDERABLES Performing Organization Address City/[facility]/ZIP Code Phon e Number [address] Gold Tube HOLD (10/14/2021 8:22 PM EDT) athologist Signature Gold Hold Sample in [facility] LABORATORY Specimen Anatomical Collection Method Collection Time Receive d Time (Source) Location / / Volume Laterality Blood Venous Draw / 10/14/2021 8:22 PM 10/15/19 8:36 Unknown EDT PM EDT Deedee Padgett MD CHEMISTRY ORDERABLES Performing Organization Address City/[facility]/ZIP Code Phon e Number [address] Blue Tube HOLD (10/14/2021 8:22 PM EDT) athologist Signature Blue Hold Sample in [facility] LABORATORY Specimen Anatomical Collection Method Collection Time Receive d Time (Source) Location / / Volume Laterality Blood Venous Draw / 10/14/2021 8:22 PM 10/15/19 22 8:36 Unknown EDT PM EDT Deedee Padgett MD HEMATOLOGY ORDERABLES Performing Organization Address City/[facility]/[place] [address] Troponin (10/14/2021 8:22 PM EDT) athologist Signature Troponin-T <0.01 0.00 - 0.00 [facility] ng/mL [facility] Comment: The 99th percentile for Troponin T is le ss than 0.01 ng/mL, any detectable cTnT concentration using this assay should be considered elevated. According to the third universal definit ion of myocardial infarction the following criteria with a clinical prese ntation consistent with acute myocardial ischemia meets the diagnosis for a myocardial infarction (AK). Detection of a rise and/or fall of [...] Samples for cTnT testing should be obtai sangita serially upon first assessment and again 3 to 6 hours later. If the clinica l suspicion is high and previous samples have been negative an additional sample may be indicated. Reference: Third [place] Definition of Myocardial Infarction. Journal of the [place] [employer] 2012;60:1581-98 Specimen Anatomical Collection Method Collection Time Receive d Time (Source) Location / / Volume Laterality Blood 10/14/2021 8:22 PM 2 8:34 EDT PM EDT Resulting Agency Comment Spec In Lab Orquidea Hobbs MD CHEMISTRY ORDERABLES Performing Organization Address City/State/ZIP Code Phon e Number [address] Phosphorus (10/14/2021 8:22 PM EDT) P athologist Signature Phosphorus 3.8 2.5 - 4.5 [facility] mg[facility]dL [facility] Specimen Anatomical Collection Method Collection Time Receive d Time (Source) Location / / Volume Laterality Blood 10/14/2021 8:22 PM 2 8:34 EDT PM EDT Resulting Agency Comment Spec In Lab Alessandro Simms MD CHEMISTRY ORDERABLES Performing Organization Address City/[facility]/[place] [address] (ABNORMAL) pro-Brain Natriuretic Peptide (10/14/2021 8:22 PM EDT) P athologist Signature ProBNP 306 (H) <=124 pg/mL [facility] Specimen Anatomical Collection Method Collection Time Receive d Time (Source) Location / / Volume Laterality Blood 10/14/2021 8:22 PM 8:34 EDT PM EDT Resulting Agency Comment Spec In Lab Orquidea Hobbs MD CHEMISTRY ORDERABLES Performing Organization Address City/State/ZIP Code [place] [address] XR Chest PA & Lateral (Generic) (10/14/2021 7:26 PM EDT) Anatomical Region Laterality Modality Chest N/A Digital Radiography Specimen (Source) Anatomical Location Collection Method / Collectio n Time Received Time / Laterality Volume Impressions 10/14/2021 7:51 PM EDT No acute cardiopulmonary process. Preliminary report signed by: Teddy aguilar at 10/14/2021 7:48 PM I have personally reviewed the image(s) and the resident's interpretation and agree with the findings, GOMEZ ACEVEDO MD at 10/14/2021 7:51 PM Thank you for letting us participate in the care of this patient. ??If you are a health care provider and have any questi ons regarding this report, please contact the number below. ??For patients who have questions please contact the health health care manager that requested your imaging first. ? Narrative 10/14/2021 7:51 PM EDT EXAMINATION: XR CHEST PA AND LATERAL (GENERIC) CLINICAL HISTORY: shortness of breath TECHNIQUE: PA and lateral views of the chest COMPARISON: CT chest without contrast 02/14/2020 FINDINGS: Sternotomy wires and mitral valve annulo plasty, unchanged. Cardiomediastinal silhouette is unchanged. Pulmonary vascu lature is within normal limits. No confluent airspace opacity. No pleural e ffusion or pneumothorax. Procedure Note Gomez Acevedo MD - 10/14/2021Formattin g of this note might be different from the original. EXAMINATION: XR CHEST PA AND LATERAL (GE NERIC) CLINICAL HISTORY: shortness of breath TECHNIQUE: PA and lateral views of the chest COMPARISON: CT chest without contrast 02/14/2020 FINDINGS: Sternotomy wires and mitral valve annulo plasty, unchanged. Cardiomediastinal silhouette is unchanged. Pulmonary vascu lature is within normal limits. No confluent airspace opacity. No pleural e ffusion or pneumothorax. IMPRESSION No acute cardiopulmonary process. Preliminary report signed by: Teddy aguilar at 10/14/2021 7:48 PM I have personally reviewed the image(s) and the resident's interpretation and agree with the findings, GOMEZ ACEVEDO MD at 10/14/2021 7:51 PM Thank you for letting us participate in the care of this patient. If you are a health care provider and have any questi ons regarding this report, please contact the number below. For patients w ho have questions please contact the health health care manager that requested your imaging first. Electronically signed by: GOMEZ ACEVEDO MD, [facility] ([phone]), at 10/14/2021 7:51 PM Orquidea Hobbs MD IMG DX ORDERABLES EKG 12 Lead (10/14/2021 6:43 PM EDT) Component Value Ref Range Test Analysis Performed Pathologis t Method Time At Signature Ventricular rate 63 BPM MUSE SYSTEM Atrial Rate 63 BPM MUSE SYSTEM P-R Interval 190 ms MUSE SYSTEM QRS Duration 120 ms MUSE SYSTEM Q-T Interval 508 ms MUSE SYSTEM QTC Calculated 519 ms MUSE SYSTEM (Bezet) Calculated P [place] 49 degrees MUSE SYSTEM Calculated R [place] 67 degrees MUSE SYSTEM Calculated T [place] 59 degrees MUSE SYSTEM INTERPRETATION Normal sinus rhythm MUSE SYSTEM Non-specific intra-ventricular conduction delay Low voltage QRS Possible Inferior infarct (cited on or before 23-FEB-1995) Abnormal ECG Nonspecific T wave abnormality now evident in Anterior leads When compared with ECG of 10-MAR-2021 15:43, No significant change was found Confirmed by MD Suzanna, [place] ([id number]) on 10/15/2021 5:02: 59 PM Specimen Anatomical Collection Method Collection Time Receive d Time (Source) Location / / Volume Laterality 10/14/2021 6:43 PM 2 5:02 EDT PM EDT Orquidea Hobbs MD ECG ORDERABLES Performing Organization Address City/State/ZIP Code Phon e Number MUSE SYSTEM SCAN DOC: LAB (10/01/2021 12:00 AM EDT)Only the most recent of2 resultswithin the time period is included. Narrative This result has an attachment that is no t available. Unknown MEDIA MGR SCAN EXT ORDR/RSLT from Last 3 Months Insurance Payer Benefit Plan / Subscriber ID Effective Dates Phone Addre ss Type Group [place] [id number] 2019-Prese [phone] [address] [facility] [address] [facility] [id number] Advance Directives Latest Code Status on File Code Status Date Activated Date Inactivated Comments Attempt Cardiopulmonary Resuscitation - 10/15/2021 12:06 AM 2021 2:35 PM Inpatient Code Status decision made by: Patient Full Code 10/07/2017 2:43 PM 10/18/2017 11:47 AM Does patient have capacity to make decision: Yes Full Code 08/16/2017 8:15 AM 08/16/2017 2:14 PM Does patient have capacity to make decision: Yes Care Teams Gore Maker Relationship Specialty Start Date End Date Es [place] PA PCP - General Family Medicine 11/27/19 [address] [facility] [place] [address]
--- OUTSIDE RECORDS SUMMARY | 2021-10-28 14:10 | XMS_ITS | Encounter Summary ---
:1955 [place] [address] Care Team Providers Name Role Phone Es Clinton Primary Care Provider Reason for Visit Reason Comments Shortness of Breath See EDGAR note Auth/Cert Specialty Diagnoses / Procedures Referred By Contact Refer red To Contact Diagnoses CHF exacerbation [facility] Procedures [place] [address] Referral ID Status Reason Start Date Expiration Date Visits Requ ested Visits Authorized [id number] 1 1 Encounter Details Date Type Department Care Team Description 10/14/2021 - Emergency Emergency Department Cj Esparza MD [facility] [place] [address] CHF exacerbation 10/15/2021 Pk Brito MD [facility] [place] [address] (Primary Dx) [facility] [place] [address] [facility] [place] [address] [place] [id number] Social History Tobacco Use Types Packs/Day Years [...] (352 lb) 10/14/2021 6:39 PM EDT Height - - Body Mass Index 53.52 09/15/2021 1:36 PM EDT documented in this encounter Medications at Time of Discharge Medication Sig Dispensed Refills Start Date End Date valsartan (Diovan) 40 mg Take 40 mg by mouth 0 Tablet daily. torsemide (Demadex) 20 mg Take 1 tablet by 30 tablet 0 08/22 TabletIndications: Coronary mouth daily. artery disease, unspecified vessel or lesion type, unspecified whether angina present, unspecified whether yocha dehe or transplanted heart, Paroxysmal atrial fibrillation, MICHELLE (obstructive sleep apnea), SOB (shortness of breath), Palpitations, Nonrheumatic mitral valve regurgitation, Congestive heart failure, unspecified HF chronicity, unspecified heart failure type Jardiance 10 mg Tablet Take 10 mg by mouth 0 /02/2020 daily. rosuvastatin (Crestor) 20 Take 20 mg by mouth 0 1 mg Tablet daily. torsemide (Demadex) 20 mg Take 20 mg by mouth 0 1 Tablet 2 times daily. omeprazole (PriLOSEC) 20 mg Take 20 mg by mouth 0 Capsule, Delayed daily. Release(E.C.) buPROPion SR (WELLBUTRIN 150 mg daily. 0 [...] Delayed Release (E.C.) daily. tamsulosin (FLOMAX) 0.4 mg Take 0.4 mg by 0 Capsule, Sust. Release 24 mouth daily. hr spironolactone (Aldactone) Take 50 mg by mouth 0 02/20/2021 25 mg Tablet daily. potassium chloride Take 20 mEq by 0 (KLOR-CON) 20 mEq Packet mouth daily. docusate sodium (COLACE) Take 100 mg by 0 100 mg Capsule mouth as needed. acetaminophen (TYLENOL) 500 Take 2 tablets by 30 tablet 1 0 10/18/2017 mg Tablet mouth every 6 hours as needed for Pain. albuterol 90 mcg/actuation Inhale 2 puffs into 0 HFA Aerosol Inhaler the lungs every 4 hours as needed for Wheezing. Use with spacer documented as of this encounter Progress Notes Kunal Das RN - 10/15/2021 10:20 AM EDTSummarmannie: Report given to [facility].Hospital Report given to Mundo Carmona RN at [facility]. VSS. At 1220- Patient taken by ambulance to [facility]. VSS. documented in this encounter H&P Notes Mima Valle MD - 10/14/2021 10:37 PM EDT Inpatient Hospital Medicine - Admission Note Problem List: There are no hospital problems to display for this patient. Active Non-Hospital Problems Diagnosis ??? CHF (congestive heart failure) ??? Morbid obesity ??? Atrial fibrillation ??? MICHELLE (obstructive sleep apnea) ??? SOB (shortness of breath) ??? Palpitations ??? Mitral regurgitation ??? CAD (coronary artery disease) ID: 65 y.o. Male presents to [facility] with shortness of breath. History of Present Illness: HPI The patient is a 65 y.o.male with past medical history of Afib s/p DCCV, on apixaban and amiodareone, CAD s/p CABG x 2, mitral regurgitation s/p MVR repair in 2017, MICHELLE on CPAP (use mainly only oxygen for a while since the machine has not been working and he is waiting to get his new machine in October), morbid obesity, HFpEF 55% (stress echo 02/2019), HTN. The patient has been following with cardiology. He reports worsening dyspnea on exertion and lower extremity edema for 1 month. He noted weight gain of 12.5 lbs since July. He had cardiology visit 09/15, mentioned to increased torsemide from 40 to 60 mg which he has been taking as instructed. Also, on the same visit mentioned to increase spironolactone from 25 to 50 mg and decrease metoprolol from 50 mg bid to 75 mg per day, however, he has not changed these meds dosing yet. His symptoms have not improved despite taking torsemide 60 mg per day. He has been taking all his medications regularly and avoiding salty diet. He has no chest pain, cough, fever. He states his mobility has limited due to GREENBERG/SOB and lately only able to walk 20 ft. He was instructed by his PCP to come to the ED today. ED course - 110/63, HR 65, RR 20, 94% RA, temp 36.8 C. He was alert and oriented x3, not in acute distress. He was given lasix 40 mg IV. Given failed outpatient management for CHF, ED discussed with cardiology recommended admission to hospital medicine. Review of Systems: Review of Systems Constitutional: Positive for unexpected weight change. Negative for chills, fatigue and fever. HENT: Negative. Eyes: Negative. Respiratory: Positive for shortness of breath. Negative for cough. Cardiovascular: Positive for leg swelling. Negative for chest pain and palpitations. Gastrointestinal: Negative. Genitourinary: Positive for difficulty urinating (hesitancy). Musculoskeletal: Negative for gait problem. Skin: Negative. Neurological: Negative. Hematological: Negative. Psychiatric/Behavioral: Negative. Past Medical and Surgical History: Past Medical History: Diagnosis Date ??? CAD (coronary artery disease) angioplasty ??? Mitral regurgitation s/p MVR with ring 09/2017 Past Surgical History: Procedure Laterality Date ??? KNEE ARTHROSCOPY ??? LAPAROTOMY diverticula ? ? PRG JAYLON REAL TIME IMG 2D W PRB IMG ACQUIS I&R N/A 09/15/2017 TRANSESOPHAGEAL ECHOCARDIOGRAM (WRVU 2.55) performed by Td Ayala MD at [facility] OR ??? PRO CABG, VEIN, TWO N/A 10/07/2017 @CABG, VEIN ONLY;TWO CORONARY VENOUS GRAFTS (WRVU 38.45) performed by Juan Alberto Tiwari MD at [facility] OR ??? PRO CARDIOVERSION ELECTIVE ARRHYTHMIA EXTERNAL N/A 10/12/2017 CARDIOVERSION-ELECTIVE (WRVU 2.25) performed by Romel Call PA at [facility] OR ??? PRO ENDOSCOPY W/VIDEO-ASST VEIN HARVEST, CABG N/A 10/07/2017 ENDOSCOPIC HARVEST VEIN(S) FOR CABG (WRVU 0.31) performed by Juan Alberto Tiwari MD at [facility] OR ??? PRO MITRALPLASTY W PROSTHETIC RING N/A 10/07/2017 @VALVULOPLASTY, MITRAL VALVE, W\CPB; W\PROSTHETIC RING (WRVU 43.28) performed by Juan Alberto Tiwari MD at [facility] OR Prior To Admission Medications: (Not in a hospital admission) Allergies: No Known Allergies Family History: Family History Problem Relation Age of Onset ??? Cardiomyopathy Father Social History and Habits: Lives with his . He ambulates independently without assistive devices. She does not smoke. ETOH occasionally. Social History Socioeconomic History ??? Marital status: Spouse name: Not on file ??? Number of children: Not on file ??? Years of education: Not on file ??? 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 Smoking status: Former Smoker Packs/day: 2.00 Years: 26.00 Pack years: 52.00 Types: Cigarettes Quit date: 08/17/1995 Years since quittin.1 ??? Smokeless tobacco: Never Used Vaping Use ??? Vaping Use: Never used Substance and Sexual Activity ??? Alcohol use: No Comment: one a month ??? Drug use: No ??? Sexual activity: Not on file Other Topics Concern ??? Not on file Social History Narrative Lives near [place], [place]. 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 Eats pretty healthily with lots of salads. Social Determinants of Health Financial Resource Strain: Not on file Food Insecurity: Not on file Transportation Needs: Not on file Physical Activity: Not on file Housing Stability: Not on file Immunizations: There is no immunization history on file for this patient. Physical Exam: Last Set of Vitals and range of vitals over past 24 hours: Last value Range last 24 hrs Temperature Temp: 36.8 ??C (98.3 ??F) Temp: [36.8 ??C (98.3 ??F)] Heart Rate Heart Rate: 62 Heart Rate: [62-65] Blood Pressure BP: 128/70 BP: (96-128)/(63-71) Respiratory Rate Resp: 21 Resp: [20-21] SpO2 SpO2: -- Body mass index is 53.52 kg/m??. Physical Exam Constitutional: General: He is not in acute distress. Appearance: He is obese. He is not ill-appearing, toxic-appearing or diaphoretic. HENT: Head: Normocephalic. Mouth/Throat: Mouth: Mucous membranes are dry. Eyes: Extraocular Movements: Extraocular movements intact. Cardiovascular: Rate and Rhythm: Normal rate and regular rhythm. Pulses: Normal pulses. Heart sounds: Normal heart sounds. No murmur heard. Pulmonary: Effort: Pulmonary effort is normal. No respiratory distress. Breath sounds: Rales (lung bases posteriorly ) present. No wheezing. Abdominal: General: There is no distension. Palpations: Abdomen is soft. Tenderness: There is no abdominal tenderness. There is no guarding or rebound. Musculoskeletal: General: Normal range of motion. Cervical back: Normal range of motion and neck supple. Right lower leg: Edema (2+) present. Left lower leg: Edema (2+) present. Skin: Capillary Refill: Capillary refill takes less than 2 seconds. Coloration: Skin is not jaundiced or pale. Neurological: General: No focal deficit present. Mental Status: He is alert and oriented to person, place, and time. Mental status is at baseline. Psychiatric: Mood and Affect: Mood normal. Behavior: Behavior normal. Thought Content: Thought content normal. Judgment: Judgment normal. Laboratory (Last 24 Hours): Recent Results (from the past 24 hour(s)) Basic Metabolic Panel (non-fasting) Result Value Ref Range Glucose Lvl 124 65 - 199 mg/dL BUN 16 10 - 20 mg/dL Creatinine 1.45 0.80 - 1.50 mg/dL Sodium 141 135 - 145 mmol/L Potassium 3.6 3.5 - 5.0 mmol/L Chloride 99 98 - 107 mmol/L CO2 30 22 - 31 mmol/L Anion Gap 12 5 - 15 mmol/L Calcium 8.8 8.5 - 10.5 mg/dL Estimated GFR 54 (L) >=60 mL/min/1.73 m?? Troponin Result Value Ref Range Troponin-T <0.01 0.00 - 0.00 ng/mL pro-Brain Natriuretic Peptide Result Value Ref Range ProBNP 306 (H) <=124 pg/mL Magnesium Result Value Ref Range Magnesium 0.92 0.69 - 1.07 mmol/L Phosphorus Result Value Ref Range Phosphorus 3.8 2.5 - 4.5 mg/dL Blue Tube HOLD Result Value Ref Range Blue Hold Sample in lab. Gold Tube HOLD Result Value Ref Range Gold Hold Sample in lab. Hemogram Result Value Ref Range WBC 8.3 4.0 - 9.5 x10(3)/mcL RBC 4.84 4.58 - 5.54 x10(6)/mcL Hemoglobin 14.3 13.7 - 16.5 g/dL Hematocrit 44.5 40.5 - 48.5 % MCV 91.9 82.9 - 93.1 fL MCH 29.5 27.5 - 32.1 pg MCHC 32.1 32.0 - 35.7 g/dL Platelets 165 145 - 357 x10(3)/mcL RDWSD 46.5 (H) 36.0 - 45.0 fL RDWCV 13.6 11.4 - 13.8 % MPV 11.3 7.6 - 12.9 fL nRBC % Auto 0.0 % nRBC Abs Auto 0.000 0.000 - 0.000 x10(3)/mcL Differential, Automated Result Value Ref Range Neutrophils % 65.5 % Neutr Abs (ANC) 5.46 1.70 - 6.10 x10(3)/mcL Lymphocytes % 16.0 % Lymphocytes Abs 1.3 0.9 - 3.2 x10(3)/mcL Monocytes % 13.4 % Monocyte Abs 1.1 (H) 0.3 - 0.9 x10(3)/mcL Eosinophils % 2.3 % Eosinophils Abs 0.2 0.0 - 0.4 x10(3)/mcL Basophils % 1.1 % Basophils Abs 0.1 0.0 - 0.1 x10(3)/mcL Immature Gran % 1.70 % Nell Gran Abs 0.14 (H) 0.00 - 0.04 x10(3)/mcL Radiology: - CXR COMPARISON: CT chest without contrast 02/14/2020 ??FINDINGS: Sternotomy wires and mitral valve annuloplasty, unchanged. Cardiomediastinal silhouette is unchanged. Pulmonary vasculature is within normal limits. No confluent airspace opacity. No pleural effusion or pneumothorax. ?? IMPRESSION No acute cardiopulmonary process. ?? Other Studies: - EKG - Normal sinus rhythm rate 63, QTc 51 Low voltage QRS Possible Inferior infarct (cited on or before 23-FEB-1995) Abnormal ECG When compared with ECG of 10-MAR-2021 15:43, No significant change was found - Echocardiogram (stress echo) 02/2019 SUMMARY: 1. Dobutamine stress echo is indeterminate [...] (trigeminy). 6. Other details as noted below. Assessment: The patient is a 65 y.o.male with past medical history of Afib s/p DCCV, on apixaban and amiodareone, CAD s/p CABG x 2, mitral regurgitation s/p MVR repair in 2017, MICHELLE on CPAP (use mainly only oxygen for a while since the machine has not been working and he is waiting to get his new machine in October), morbid obesity, HFpEF 55% (stress echo 02/2019), HTN. He presented with progressive dyspnea on exertion, lower extremity edema, wt gain over a month, failed outpatient management. # CHF exacerbation, HFpEF # HTN - s/p lasix 40 mg IV while in the ED, will continue lasix 40 mg IV bid - monitor Is and Os, body weight - monitor BMP, Mg - echocardiogram - resume metoprolol 75 mg po daily - resume spironolactone 50 mg po daily # HTN # CABG # Afib, rate controlled - resume metoprolol 75 mg po daily - resume apixaban 5 mg po bid - resume asa 81 mg po daily - resume amiodarone 100 mg po daily - hold valsartan - monitor BMP, Mg, LFTs, TSH # Mildly elevated creatinine 1.45 (1.2 on 01/2020, 0.68 on 09/2017) - hold valsartan # BPH - resume tamsulosin 0.8 mg p o. Hs # DLP - resume rosuvastatin 20 mg po hs # other medications/ issues - resume bupropion SR 150 mg po daily - hold Jardiance - check HbA1C Plan: ?? Admit to Hospital Medicine, observation ?? Physical Therapy referral ?? DVT Prophylaxis - on apixaban ?? If currently a smoker - advised about smoking cessation and will provide smoking cessation material and support. ?? Pneumovax and Influenza Immunizations given as needed. ?? Discussed Advanced Directives and Code Status. The patient wishesto be Full Code. A copy of this document will be sent to the patient's Primary Care Physician and/or Referring Physician. Mima Valle MD 10/14/2021 documented in this encounter ED Notes Jyotsna Hopson MD - 10/15/2021 8:51 AM EDT Transfer to [facility] discussed - accepting Jyotsna Salmeron MD 10/15/21850 Jefe Mendoza - 10/15/2021 1:55 AM EDT Patient placed on 2L NC for low SPO2 while sleeping. Jefe Mendoza - 10/14/2021 11:06 PM EDT Patient provided with hospital bed for comfort, no additional needs at this time. VSS, NAD. Jefe Mendoza - 10/14/2021 10:18 PM EDT Jessica [phone] Jared Esparza MD - 10/14/2021 9:29 PM EDT ED Attending Note 65-year-old male with history of CHF presenting with shortness of breath. Patient states that he hashad 1 month of worsening shortness of breath, lower extremity edema, decreased exertional capacity. Patient states that he has had his home Lasix dose increased without improvement in his symptoms. Patient denies chest pain, fever, or other symptoms. Exam with obese individual, distant breath sounds, heart regular rate and rhythm, 2+ bilateral lower extremity pitting edema. Differential includes but not limited to CHF exacerbation. Plan for labs, EKG, imaging. Did this case involve critical care? No Jared Esparza MD 10/16/21 0724 Edu Lopez RN - 10/14/2021 8:38 PM EDT Patient provided with two urinals. Deedee Padgett MD - 10/14/2021 8:24 PM EDT Cristian Miner is an 65 y.o. male who presents to the ED with: Chief Complaint Patient presents with ??? Shortness of Breath See EDGAR note HPI Cristian Miner is a 65 y.o. male with a PMH significant for CAD s/p CABG 10/08, atrial fibrillation on Eliquis, MR s/p MVR 10/08, CHF (EF 55% 03/12), MICHELLE, and DM, who presents to the Emergency Department with worsening peripheral edema and weight gain as well as progressive dyspnea. The patient has endorsessymptoms over the past month. Denies chest pain. Endorses feeling lightheaded with activity. Is currently able to walk about 15 feet before becoming too short of breath to continue. He was seen most recently by the heart failure clinic about a month ago where his torsemide dose was increased. Since that time he has had worsening symptoms of heart failure. Instructed by his primary care to come in today. No recent illness. No cough or fevers. 12.5lb weight gain over 1 month. Medications, allergies, past medical history, surgical history, family history, and social history were reviewed Patient was evaluated and discussed with Dr. Esparza Review of Systems: Pertinent positives and negatives are included in the HPI, otherwise at least ten systems were reviewed and negative. ED Triage Vitals [10/14/21 1839] BP: 110/63 Heart Rate: 65 Resp: 20 Temp: 36.8 ??C (98.3 ??F) Temp src: Temporal SpO2: n/a O2 Device: RA O2 Flow Rate (L/min): n/a Physical Exam: General: Well appearing HEENT: Normocephalic and atraumatic. Extraocular movements intact. Cardiovascular: Regular rate. Radial pulses 2+ and symmetric. Pitting edema to the mid thighs Pulmonary: Crackles in the lung bases bilaterally. No increased WOB Abdominal: Tense. No TTP Musculoskeletal: No gross deformities. Skin: Capillary refill <2 seconds Neurologic: No focal deficits Psychiatry: Mood appropriate - Medications and fluids administered: Medications furosemide (Lasix) (10 mg/mL) injection 40 mg (40 mg Intravenous Given 10/14/212022) - I have reviewed imaging, which is significant for: XR Chest PA & Lateral (Generic) Final Result No acute cardiopulmonary process. Preliminary report signed by: Teddy Kaplan at 10/14/2021 7:48 PM I have personally reviewed the image(s) and the resident's interpretation and agree with the findings, GOMEZ ACEVEDO MD at 10/14/2021 7:51 PM Thank you for letting us participate in the care of this patient. If you are a health care provider and have any questions regarding this report, please contact the number below. For patients who have questions please contact the health health care facilities inspector that requested your imaging first. Assessment and Plan: MDM: 65 y.o. male who presents for Weight gain, edema and GREENBERG. Vital signs at presentation were reassuring. Physical exam significant for edema and abnormal breathsounds. DDX includes CHF exacerbation, PNA, ACS. Plan: labs, diurese and likely admit. ED Course as of 10/14/212251Oct 14, 20212207 ProBNP(!): 306 8 Troponin-T: <0.01 2207 Creatinine: 1.45 2210 EKG 12 Lead My interpretation: Sinus rhythm at a rate of 63 bpm. Normal intervals. No ST segment changes consistent with ischemia. Low voltage QRS. Overall with negative troponin reassuring against ischemic disease. 2241 Spoke with cardiology. Given how stable the patient is and straightforward his exacerbation hasthey felt that he may be appropriate for hospital medicine service. 2250 XR Chest PA & Lateral (Generic) My interpretation: Evidence of fluid overload, no pleural effusion, no focal consolidation to suggest pneumonia. 2251 Admitted to hospital medicine. Impression: 1. CHF exacerbation Deedee Padgett MD Resident 10/14/212251 Associated attestation - Jared Esparza MD - 10/16/2021 7:24 AM EDT ED ATTENDING ATTESTATION NOTE The patient was seen in conjunction with the resident physician. I have independently performed the chiu portions of the history and physical exam. I have reviewed the nursing notes, vital signs, and all diagnostic studies personally including labs, imaging studies and EKGs. I have discussed the details of the case with the resident and agree with the assessment and plan as described in the resident note unless noted otherwise. Brief Summary: SOB Final Assessment: CHF exacerbation Josesito Ferreira PA - 10/14/2021 6:39 PM EDT 65 y/o M with hx of CHF followed by heart failure clinic presents with shortness of breath and weight gain. See Dr. Antonio' note for further details. Has been taking torsemide but still gaining weight. Appears stable in triage. Cardiac labs ordered. Josesito Ferreira PA 10/14/211841 Cal Antonio MD - 10/14/2021 6:21 PM EDT EM attending brief outside phone call note: Cristian Miner is a 65 y.o. who I was called about from [facility] The patient will be evaluated in the Emergency Department for worsening SOB Brief Summary: 65 yo f with a h/o obesity, CABG 2018 with MV repair, A fib on amio & eliquis, MICHELLE on CPAP, severe MR s/p repair 30mm ring, HF: chronic. ??EF 55%, followed by cardiology here, who has been undergoing med adjustments to balance fluid status and Cr and who presented to the clinic withsigns of worsening heart failure. 12.5lb weight gain since late July, increasing SOB with minimal walking, increased LE edema. It is felt that he is failing outpatient management. He will present to the ED for further evaluation and treatment. Cal Antonio MD 10/14/211825 documented in this encounter Miscellaneous Notes ED Triage - Karen Vicente, RN - 10/14/2021 6:38 PM EDT I have too much fluid on me. Has been ongoing for about a month. I went to my pcp and told me to getto the ED. Gained approx 10-13 lbs Denies fever/chills documented in this encounter Plan of Treatment Upcoming Encounters Date Type Specialty Care Team Description 11/11/2021 Office Visit Nephrology Jonn Zuniga MD [facility] ER NEPHROLOGY DEPT [place] [id number] (Wo rk) documented as of this encounter Procedures Procedure Name Priority Date/Time Associated Comments Diagnosis HC THYROID Routine 10/15/2021 2:00 AM Results f or this STIMULATING HORMONE, EDT procedu re are in SERUM the results section. T4, FREE Routine 10/15/2021 2:00 AM Results f or this EDT procedure are i n the results section. HC MAGNESIUM, SERUM Routine 10/15/2021 2:00 AM Re sults for this EDT procedure are i n the results section. HC HEMOGLOBIN A1C Routine 10/15/2021 2:00 AM Resu lts for this EDT procedure are i n the results section. HEPATIC FUNCTION Routine 10/15/2021 2:00 AM Resul ts for this PANEL EDT procedure are i n the results section. BASIC METABOLIC PANEL Routine 10/15/2021 2:00 AM Results for this (NON-FASTING) EDT procedure are in the results section. HEMOGRAM STAT 10/14/2021 8:22 [...] are i n the results section. HC CBC,PLT & AUTO STAT 10/14/2021 8:22 PM DIFF EDT HC TROPONIN T STAT 10/14/2021 8:22 PM [...] EDT procedure are in the results section. XR CHEST PA AND STAT 10/14/2021 7:26 PM Result s for this LATERAL EDT procedure are i n the results section. EKG 12-LEAD STAT 10/14/2021 6:43 PM Results f or this EDT procedure are i n the results section. documented in this encounter Results T4, free (10/15/2021 2:00 AM EDT) P athologist Signature Free T4 1.12 0.93 - 1.70 [facility] ng/dL [facility] Comment: Reference Interval (ng/dL): Females: ??First Trimester: 0.97-1.68 ??Second Trimester: 0.77-1.51 ??Third Trimester: 0.77-1.49 Specimen Anatomical Collection Method Collection Time Receive d Time (Source) Location / / Volume Laterality Blood 10/15/2021 2:00 AM 2:32 EDT AM EDT Resulting Agency Comment Spec In Lab Mima Valle MD CHEMISTRY ORDERABLES Performing Organization Address City/[facility] [place] [address] (ABNORMAL) TSH Lamar (10/15/2021 2:00 AM EDT) P athologist Signature TSH 5.57 (H) 0.27 - 4.20 [place] [facility] mcIU/mL [facility] Comment: Reference Interval (mcIU/mL): Females: ??First Trimester: 0.23-3.88 ??Second Trimester: 0.22-3.90 ??Third Trimester: 0.44-4.66 Specimen Anatomical Collection Method Collection Time Receive d Time (Source) Location / / Volume Laterality Blood 10/15/2021 2:00 AM 2 2:14 EDT AM EDT Resulting Agency Comment Spec In Lab Mima Valle MD CHEMISTRY ORDERABLES Performing Organization Address [facility] [place] [address] Hepatic Function Panel (10/15/2021 2:00 AM EDT) P athologist Signature Total Protein 6.2 6.1 - 8.0 [place] LUANN g/dL [facility] Albumin 3.4 3.2 - 5.2 [place] LUANN g/dL [facility] AST 15 0 - 39 [place] unit/L [facility] ALT 12 0 - 55 [facility] LUANN unit/L [facility] Alk Phos 92 40 - 130 [facility] LUANN unit/L [facility] Total 0.3 0.2 - 1.3 LEOBARDO LUANN Bilirubin mg/dL [facility] Bili, Direct 0.1 0.0 - 0.3 LEOBARDO LUANN mg/dL [facility] Specimen Anatomical Collection Method Collection Time Receive d Time (Source) Location / / Volume Laterality Blood 10/15/2021 2:00 AM 2 2:14 EDT AM EDT Resulting Agency Comment Spec In Lab Mima Valle MD CHEMISTRY ORDERABLES Performing Organization Address City/[facility]/ZIP [place] [address] (ABNORMAL) Hemoglobin A1c (10/15/2021 2:00 AM EDT) Analysis Performed At [facility] Time Signature Hemoglobin A1C 6.5 (H) 4.3 - 5.6 [facility] Comment: Reference Range: 4.3 [...] Mellitus, Diabetes Care 2013; 36: Suppl. 1, S67-56 Est Avg Gluc 139 mg/dL [facility] Comment: eAG equivalents for HbA1c percentages: HbA1c(%) ?eAG(mg/dL) 6.0 ?126 6.5 ?140 7.0 ?154 7.5 ?169 8.0 ?183 8.5 ?197 9.0 ?212 9.5 ?226 10.0 ? 240 Limitations: The eAG calculation has not been validated on women, individuals below 18 years old and above 70 years old, and individuals with hemoglobinopathies. Additional resources are available on [facility] ADA website. Shalom ANDERS, Errol J, Meri R, et al. ??Tr anslating the A1C assay into estimated average glucose values. ??Diabetes Care 2008:31(8):5015-6113. Specimen Anatomical Collection Method Collection Time Receive d Time (Source) Location / / Volume Laterality Blood 10/15/2021 2:00 AM 2:14 EDT AM EDT Resulting Agency Comment Spec In Lab Mima Valle MD CHEMISTRY ORDERABLES Performing Organization Address City/State/ZIP [place] [address] (ABNORMAL) Basic Metabolic Panel (non-fasting) (10/15/2021 2:00 AM EDT) P athologist Signature Glucose Lvl 129 65 - 199 [facility] mg/dL [facility] Comment: Diabetes: >=200 mg/dL plus symp toms BUN 18 10 - 20 mg/dL [facility] Creatinine 1.43 0.80 - 1.50 mg/dL [facility] Sodium 140 135 - 145 mmol/L [facility] Potassium 3.6 3.5 - 5.0 mmol/L [facility] Comment: Please note: ??Patients with WBC >100,00 0 may have falsely elevated Potassium levels. ??For accurate Potassium quantif ication in these patients send serum separator tube (gold top) for subsequent determinations. ??Contact the Clinical Chemistry Laboratory if there are any qu estions. Chloride 101 98 - 107 mmol/L [facility] CO2 29 22 - 31 mmol/L [facility] Anion Gap 10 5 - 15 mmol/L [facility] Calcium 8.6 8.5 - 10.5 mg/dL [facility] Estimated GFR 55 (L) >=60 mL/min/1.73 m?? [facility] Comment: This patient's estimated GFR was [...] Organization Address City/State/ZIP Code Phon e Number [address] Magnesium (10/15/2021 2:00 AM EDT) P athologist Signature Magnesium 0.89 0.69 - 1.07 [facility] mmol/L [facility] Specimen Anatomical Collection Method Collection Time Receive d Time (Source) Location / / Volume Laterality Blood 10/15/2021 2:00 AM 2 2:14 EDT AM EDT Resulting Agency Comment Spec In Lab Mima Valle MD CHEMISTRY ORDERABLES Performing Organization Address City/State/ZIP Code Phon e Number [address] (ABNORMAL) Differential, Automated (10/14/2021 8:22 PM EDT) Patholo gist Method Time Signature Neutrophils % 65.5 % [facility] Neutr Abs (ANC) 5.46 1.70 - [facility] 6.10 [facility] x10(3)/[facility] LABORATORY Lymphocytes % 16.0 % [facility] Lymphocytes Abs 1.3 0.9 - 3.2 [facility] x10(3)/[facility] LABORATORY Monocytes % 13.4 % [facility] Monocyte Abs 1.1 (H) 0.3 - 0.9 [facility] x10(3)/[facility] LABORATORY Eosinophils % 2.3 % [facility] Eosinophils Abs 0.2 0.0 - 0.4 [facility] x10(3)/[facility] LABORATORY Basophils % 1.1 % [facility] Basophils Abs 0.1 0.0 - 0.1 [facility] x10(3)/[facility] LABORATORY Immature Gran % 1.70 % [facility] Comment: Immature granulocytes(IG's)percentage an d absolute count will include metamyelocytes, myelocytes, and promyelo cytes. Blood smears from CBCs yielding IG's will be scanned manually for concor dance. If this scan disagrees with the automated IG or if promyelocytes are not ed, a manual differential will be performed. Nell Gran Abs 0.14 (H) 0.00 - 0.04 x10(3)/[facility] LABORATORY Specimen Anatomical Collection Method Collection Time Receive d Time (Source) Location / / Volume Laterality Blood 10/14/2021 8:22 PM 8:40 EDT PM EDT Resulting Agency Comment Spec In Lab Josesito THORNTON HEMATOLOGY ORDERABLES Performing Organization Address City/State/ZIP Code Phon e Number [place] [phone] (ABNORMAL) Hemogram (10/14/2021 8:22 PM EDT) Analysis Performed At Patho logist Time Signature WBC 8.3 4.0 - 9.5 [facility] x10(3)/[facility] LABORATORY RBC 4.84 4.58 - [facility] 5.54 [facility] x10(6)/[facility] LABORATORY Hemoglobin 14.3 13.7 - [facility] 16.5 g/dL [facility] Hematocrit 44.5 40.5 - [facility] 48.5 % [facility] MCV 91.9 82.9 - [facility] 93.1 [facility] LABORATORY MCH 29.5 27.5 - [facility] LUANN 32.[address] [facility] MCHC 32.1 32.0 - [facility] 35.7 g/dL [facility] Platelets 165 145 - 357 [facility] x10(3)/[facility] LABORATORY RDWSD 46.5 (H) 36.0 - [facility] LUANN 45.0 [facility] LABORATORY RDWCV 13.6 11.4 - [facility] 13.8 % [facility] MPV 11.3 7.6 - 12.9 [facility] LABORATORY nRBC % Auto 0.0 % [facility] nRBC Abs Auto 0.000 0.000 - [facility] 0.000 [facility] x10(3)/[facility] LABORATORY Specimen Anatomical Collection Method Collection Time Receive d Time (Source) Location / / Volume Laterality Blood 10/14/2021 8:22 PM 8:40 EDT PM EDT Resulting Agency Comment Spec In Lab Josesito THORNTON HEMATOLOGY ORDERABLES Performing Organization Address City/[facility]/ZIP Code Phon e Number [address] Gold Tube HOLD (10/14/2021 8:22 PM EDT) P athologist Signature Gold Hold Sample in [facility] LABORATORY Specimen Anatomical Collection Method Collection Time Receive d Time (Source) Location / / Volume Laterality Blood Venous Draw / 10/14/2021 8:22 PM 10/15/19 8:36 Unknown EDT PM EDT Deedee Padgett MD CHEMISTRY ORDERABLES Performing Organization Address City/State/ZIP Code Phon e Number [address] Blue Tube HOLD (10/14/2021 8:22 PM EDT) P athologist Signature Blue Hold Sample in [facility] LABORATORY Specimen Anatomical Collection Method Collection Time Receive d Time (Source) Location / / Volume Laterality Blood Venous Draw / 10/14/2021 8:22 PM 10/15/19 8:36 Unknown EDT PM EDT Deedee Padgett MD HEMATOLOGY ORDERABLES Performing Organization Address City/[facility]/ZIP Code Phon e Number [address] Phosphorus (10/14/2021 8:22 PM EDT) P athologist Signature Phosphorus 3.8 2.5 - 4.5 [facility] mg/dL [facility] Specimen Anatomical Collection Method Collection Time Receive d Time (Source) Location / / Volume Laterality Blood 10/14/2021 8:22 PM 2 8:34 EDT PM EDT Resulting Agency Comment Spec In Lab Alessandro Simms MD CHEMISTRY ORDERABLES Performing Organization Address City/State/[place] [address] Magnesium (10/14/2021 8:22 PM EDT) athologist Signature Magnesium 0.92 0.69 - 1.07 [facility] mmol/L [facility] Specimen Anatomical Collection Method Collection Time Receive d Time (Source) Location / / Volume Laterality Blood 10/14/2021 8:22 PM 2 8:34 EDT PM EDT Resulting Agency Comment Spec In Lab Alessandro Simms MD CHEMISTRY ORDERABLES Performing Organization Address City/[facility]/ZIP [place] [address] (ABNORMAL) pro-Brain Natriuretic Peptide (10/14/2021 8:22 PM EDT) athologist Signature ProBNP 306 (H) <=124 pg/mL [facility] Specimen Anatomical Collection Method Collection Time Receive d Time (Source) Location / / Volume Laterality Blood 10/14/2021 8:22 PM 2 8:34 EDT PM EDT Resulting Agency Comment Spec In Lab Orquidea Hobbs MD CHEMISTRY ORDERABLES Performing Organization Address City/[facility]/ZIP [place] [address] Troponin (10/14/2021 8:22 PM EDT) athologist Signature Troponin-T <0.01 0.00 - 0.00 [facility] ng/mL [facility] Comment: The 99th percentile for Troponin T is le ss than 0.01 ng/mL, any detectable cTnT concentration using this assay should be considered elevated. According to the third universal definit ion of myocardial infarction the following criteria with a clinical prese ntation consistent with acute myocardial ischemia meets the diagnosis for a myocardial infarction (AR). Detection of a rise and/or fall of [...] additional sample may be indicated. Reference: Third [place] Definition of Myocardial Infarction. Journal of the [employer] 2012;60:1581-98 Specimen Anatomical Collection Method Collection Time Receive d Time (Source) Location / / Volume Laterality Blood 10/14/2021 8:22 PM 8:34 EDT PM EDT Resulting Agency Comment Spec In Lab Orquidea Hobbs MD CHEMISTRY ORDERABLES Performing Organization Address City/State/ZIP [place] [address] (ABNORMAL) Basic Metabolic Panel (non-fasting) (10/14/2021 8:22 PM EDT) P athologist Signature Glucose Lvl 124 65 - 199 [facility] mg/dL [facility] Comment: Diabetes: >=200 mg/dL plus symp toms BUN 16 10 - 20 mg/dL [facility] Creatinine 1.45 0.80 - 1.50 mg/dL [facility] Sodium 141 135 - 145 mmol/L [facility] Potassium 3.6 3.5 - 5.0 mmol/L [facility] Comment: Please note: ??Patients with WBC >100,00 0 may have falsely elevated Potassium levels. ??For accurate Potassium quantif ication in these patients send serum separator tube (gold top) for subsequent determinations. ??Contact the Clinical Chemistry Laboratory if there are any qu estions. Chloride 99 98 - 107 mmol/L [facility] CO2 30 22 - 31 mmol/L [facility] Anion Gap 12 5 - 15 mmol/L [facility] Calcium 8.8 8.5 - 10.5 mg/dL [facility] Estimated GFR 54 (L) >=60 mL/min/1.73 m?? [facility] Comment: This patient's estimated GFR was [...] Organization Address City/State/ZIP Code Phon e Number [place] [phone] XR Chest PA & [...] questions please contact the health health care facilities inspector that requested your imaging first. ? Narrative [...] questions please contact the health health care facilities inspector that requested your imaging first. Orquidea Hobbs MD IMG DX ORDERABLES EKG [...] 519 ms MUSE SYSTEM (Bezet) Calculated P [place] 49 degrees MUSE SYSTEM Calculated R [place] 67 degrees MUSE SYSTEM Calculated T [place] 59 degrees MUSE SYSTEM INTERPRETATION Normal sinus rhythm MUSE SYSTEM Non-specific intra-ventricular conduction delay Low voltage QRS Possible Inferior infarct (cited on or before 23-FEB-1995) Abnormal ECG Nonspecific T wave abnormality now evident in Anterior leads When compared with ECG of 10-MAR-2021 15:43, No significant change was found Confirmed by MD Suzanna, Marge ([id number]) on 10/15/2021 5:02: 59 PM Specimen Anatomical Collection Method Collection Time Receive d Time (Source) Location / / Volume Laterality 10/14/2021 6:43 PM 5:02 EDT PM EDT Orquidea Hobbs MD ECG ORDERABLES Performing Organization Address City/State/ZIP Code Phon e Number MUSE SYSTEM documented in this encounter Visit Diagnoses Diagnosis CHF exacerbation - Primary Congestive heart failure, unspecified documented in this encounter Admitting Diagnoses Diagnosis CHF exacerbation Congestive heart failure, unspecified documented in this encounter Administered Medications Inactive Administered Medications - up to 3 most recent administrations Medication Order MAR Action Action Date Dose Rate Site AMIOdarone (Paceron) tablet 100 mg Given 10/15/2021 8:38 AM EDT 100 mg 100 mg, Oral, DAILY, First dose on Nerissa 10/15/21 at 0900, Until Discontinued, Routine apixaban (Eliquis) tablet 5 mg Given 10/15/2021 8:31 AM EDT 5 mg 5 mg, Oral, 2 TIMES DAILY, First dose on Nerissa 10/15/21 at 0018, Until Discontinued, Anticoagulant, Routine Given 10/15/2021 1:56 AM EDT 5 mg aspirin EC tablet 81 mg Given 10/15/2021 8:31 AM EDT 81 mg 81 mg, Oral, DAILY, First dose on Nerissa 8/25/22 at 0900, Until Discontinued, Routine buPROPion SR (Wellbutrin SR) tablet 150 mg Given 10/15/2021 8:38 AM EDT 150 mg 150 mg, Oral, DAILY, First dose on Tue10/15/21 at 0900, Until Discontinued, DO NOT CRUSH OR OPEN, Routine furosemide (Lasix) (10 mg/mL) injection 40 mg Given 10/14/2021 8:23 PM EDT 40 mg 40 mg, Intravenous, ONCE, 1 dose, On Tue10/14/21 at 1951 furosemide (Lasix) (10 mg/mL) injection 40 mg Given 10/15/2021 8:29 AM EDT 40 mg 40 mg, Intravenous, 2 TIMES DAILY, First dose on Tue10/15/21 at 0700, Until Discontinued metoproloL tartrate (Lopressor) tablet 7 5 mg Given 10/15/2021 8:30 AM EDT 75 mg 75 mg, Oral, DAILY, First dose on Tue10/15/21 at 0900, Until Discontinued, Routine pantoprazole EC (Protonix) tablet 40 mg Given 10/15/2021 8:30 AM EDT 40 mg 40 mg, Oral, DAILY, First dose on Tue10/15/21 at 0900, Until Discontinued sodium chloride 0.9 % (flush) (BD PosiFlush Given 10/15/2021 8:3 2 AM EDT 5 mLs Normal Saline 0.9) flush 5 mL 5 mL, Intravenous, 2 TIMES DAILY, First dose on Nerissa 10/15/21 at 0018, Until Discontinued, Routine spironolactone (Aldactone) tablet 50 mg Given 10/15/2021 8:38 AM EDT 50 mg 50 mg, Oral, DAILY, First dose on Tue10/15/21 at 0900, Until Discontinued, DO NOT SPLIT, CRUSH OR OPEN, Routine tamsulosin (Flomax) capsule 0.8 mg 0.8 mg, Oral, NIGHTLY, First dose (after last modification) on Nerissa 10/15/21 at 2100, Until Discontinued, DO NOT CRUSH OR OPEN, Routine documented in this encounter Active and Recently Administered Medications Times are shown in EDT. Scheduled Medication Order 10/13/2021 10/14/2021 10/15/2021 AMIOdarone (Paceron) tablet 100 mg 0838 (Given - Provider: Kunal Das RN) 100 mg, Oral, DAILY, First dose on Tue at 0900, Until Discontinued, Routine apixaban (Eliquis) tablet 5 mg 0 156 (Given - Provider: Jefe Mendoza)0831 (Given - Provider: Kunal Das RN) 5 mg, Oral, 2 TIMES DAILY, First dose on Tue10/15/21 at 0018, Until Discontinued, Anticoagulant, Routine aspirin EC tablet 81 mg 0831 (Gi sukumar - Provider: Kunal Das RN) 81 mg, Oral, DAILY, First dose on Tue at 0900, Until Discontinued, Routine buPROPion SR (Wellbutrin SR) tablet 150 mg 08 (Given - Provider: Kunal Das RN) 150 mg, Oral, DAILY, First dose on Tue at 0900, Until Discontinued, DO NOT CRUSH OR OPEN, Routine docusate sodium (Colace) capsule 100 mg 17 (Not Given - Provider: Jefe Mendoza - Reason: Patient/family refused)0830 (Not Given - Provider: Kunal Das RN - Reason: Patient/family refused) 100 mg, Oral, 2 TIMES DAILY, First dose on Tue10/15/21 at 0018, Until Discontinued, Routine furosemide (Lasix) (10 mg/mL) injection 40 mg (COMPLETED) 2022 (Given - Provider: Edu Lopez RN) 40 mg, Intravenous, ONCE, 1 dose, On Tue10/14/21 at 195 furosemide (Lasix) (10 mg/mL) injection 40 mg 828 (Given - Provider: Kunal Das RN) 40 mg, Intravenous, 2 TIMES DAILY, First dose on Tue10/15/21 at 0700, Until Discontinued metoproloL tartrate (Lopressor) tablet 75 mg 08 (Given - Provider: Kunal Das RN) 75 mg, Oral, DAILY, First dose on Tue at 0900, Until Discontinued, Routine pantoprazole EC (Protonix) tablet 40 mg 0830 (Given - Provider: Kunal Das RN) 40 mg, Oral, DAILY, First dose on Nerissa 10/15/21 at 0900, Until Dis continued rosuvastatin (Crestor) tablet 20 mg 20 mg, Oral, EVERY EVENING, First dose o n Nerissa 10/15/21 at 1700, Until Discontinued, Routine sodium chloride 0.9 % (flush) (BD PosiFlush Normal Saline 0.9) f lush 5 mL 0018 (Not Given - Provider: Jefe Mendoza - Reason: Order parameters not met)0832 (Given - Provider: Kunal Das RN) 5 mL, Intravenous, 2 TIMES DAILY, First dose on Nerissa 10/15/21 at 0018, Until Discontinued, Routine spironolactone (Aldactone) tablet 50 mg 0838 (Given - Provider: Kunal Das RN) 50 mg, Oral, DAILY, First dose on Nerissa at 0900, Until Discontinued, DO NOT SPLIT, CRUSH OR OPEN, Routine tamsulosin (Flomax) capsule 0.8 mg 0.8 mg, Oral, NIGHTLY, First dose (after last modification) on Nerissa 10/15/21 at 2100, Until Discontinued, DO NOT CRUSH OR OPEN, Routine PRN Medication Order 10/13/2021 10/14/2021 10/15/2021 acetaminophen (Tylenol) tablet 650 mg 650 mg, Oral, EVERY 6 HOURS PRN, Startin g on Nerissa 10/15/21 at 0016, Until Nerissa 10/15/21 at 1435, Pain, Fever, Administer for temperature greater than or equal to 38.2 degrees celsius. Maximum daily dose of acetaminophen from all sources not to ex ceed 4,000 mg. When ordered for pain, acetaminophen should be given even when other ordered pain medications are indicated., Routine bisacodyL (Dulcolax) suppository 10 mg 10 mg, Rectal, DAILY PRN, Starting on u 10/15/21 at 0016, Until Nerissa 10/15/21 at 1435, Constipation, Administer if needed per patient's routine or if no bowel movement within 48 hours to achieve: (1) One bowel movement every 48 hours, AND (2) Without straining. If multiple PRN bowel medications ordered, start with magnesium hydroxide, then bisacodyl. Multiple medications may be given concomitantly for constipation., Routine lidocaine (Xylocaine) 1% (10 mg/mL) injection 3 mg 3 mg (0.3 mL), Subcutaneous, ONCE PRN, 1 dose, Starting on Nerissa 10/15/21 at 0016, Until Nerissa 10/15/21 at 1435, for discomfort with PIV insertion, Routine melatonin tablet 3 mg 3 mg, Oral, NIGHTLY PRN, Starting on Nerissa 10/15/21 at 0016, Until Nerissa 10/15/21 at 1435, Sleep, Routine sodium chloride 0.9 % (flush) (BD PosiFlush Normal Saline 0.9) f lush 5-20 mL 5-20 mL, Intravenous, EVERY 1 MIN PRN, S tarting on Nerissa 10/15/21 at 0016, Until Nerissa 10/15/21 at 1435, flush, Flush pertains to all indwelling lines. Flush per protocol found in the job aid using the link provided on this medication record., Routine documented in this encounter Care Teams Social Worker Palliative Care Relationship Specialty Start Date End Date Es Clinton PA PCP - General Family Medicine 11/27/19 [address] [place] [address] documented as of this encounter
--- OUTSIDE RECORDS SUMMARY | 2021-10-28 14:10 | XMS_ITS | Encounter Summary ---
:1955 [facility] Organization [facility] Address [address] [place] [address] Care Team Providers Name Role Phone Иван Seymour MD Primary Care Provider [phone] Encounter Details Date Type Department Care Team Description 06/21/2012 Results Only [facility] Anjel Hernandez MD Laboratory Services - [address] [place] [address] [address] [place] [address] [phone] Social History Tobacco Use Types Packs/Day Years Used Date Never Assessed Sex Assigned at Date Recorded Not on file documented as of this encounter Plan of Treatment Not on filedocumented as of this encounter Procedures Procedure Name Priority Date/Time Associated Diagnosis [facility]me [facility] SURGICAL PATHOLOGY Routine 06/21/2012 8:47 EDT Re sults for this procedure are i n the results section. documented in this encounter Results SURGICAL PATHOLOGY (06/21/2012 8:47 EDT) Pathology Report: SURGICAL PATHOLOGY REPORT LIZETH SANTILLAN Reports generated via electronic interface contain jeff ginal data; LAB however they are lacking the format of the original re port. Caution should be taken when reading/interpreting unfo rmatted reports. Name: ? JUSTIN GREY ? Accession #: ? [id number] ? : ? 1955 (Age: 56) ??M ? Collect Date: ? 06/21/2012 ? Location: ? [facility] ? Receive Date: ? 013 ? Provider: ANJEL HERNANDEZ MD Copy to: LEOBARDO AVILES MD ? Final Pathologic Diagnosis: A. ?Colon, transverse, polypectomy: ?1. ??Fragment s of tubular adenoma versus sessile serrated adenoma. ??See comment. B. ?? Colon, splenic flexure, polypectomy: ? 1. ??Tubular adenoma. C. ?? Colon, sigmoid, polypectomies: ? 1. ??Fragments of tubular adenoma(s). D. ?? Rectum, polypectomies: ? 1. ??Hyperplastic polyp(s). Comment: ? Specimen (A) is markedly fragmented and has cau jaleel artifact which precludes a more definitive classification of the poly p. ??(Dr. Dao)/[facility] Document reviewed and electronically signed by: MALATHI DAO MD Report ??Date: 06/23/2012 17:47 By the signature above, the attending physician certif ies that he/she has personally conducted a gross and/or microscopic examin ation of the described specimens and rendered or confirmed the above diagnosi s. Specimen(s) Received: A. ?Transverse colon polyp (#1) B. ? Splenic flexure polyp (#2) C. ? Sigmoid polyps x3 (#3) D. ? Rectal polyps x2 (#4) Clinical History: ? H/O colon adenomas, F/H colon cancer Gross Description: ? Received in formalin labelled Justin Grey and #1-transverse colon polyp are multiple irregular fragments of ligh t severino tissue measuring 1.5 x 0.3 x 0.2 cm in aggregate. ??The specimen is submitted entirely as (A1) following filtration. Received in formalin labelled Grey, Harriett l and #2-splenic flexure polyp is a 0.4 x 0.3 x 0.2 cm light severino polyp. ??The specimen is submitted intact as (B1). Received in formalin labelled Harriett Grey and #3-sigmoid polyps x3 are four light severino polypoid biopsies which vary in size from 0.4 x 0.2 x 0.1 cm up to 0.4 x 0.4 x 0.4 cm. ??The three smallest tis sues are submitted intact as (C1). The largest is inked, bisected and submitted entirely as ( C2). Received in formalin labelled Justin Grey and #4-rec alejandro polyps x2 are two light severino polypoid biopsies measuring 0.1 x 0.1 cm and 0.3 x 0.2 x 0.2 cm. ??The specimens are submitted intact as (D1). ??([place] aguilar)/[facility] End of Report Specimen Performing Organization Address City/State/ZIP Code Phon e Number [facility] [address] [place] [address] SERVICES [facility] [address] [place] [address] documented in this encounter Visit Diagnoses Not on filedocumented in this encounter Care Teams Retail Loan Originator Relationship Specialty Start Date End Date Иван Seymour MD PCP - General 01/08/09 01/19/[address] [place] [phone] documented as of this encounter
--- OUTSIDE RECORDS SUMMARY | 2021-10-28 14:10 | XMS_ITS | Encounter Summary ---
:[address] [facility] Address [address] [place] [address] Care Team Providers Name Role Phone Иван Seymour MD Primary Care Provider [phone] Encounter Details Date Type Department Care Team Description 03/02/2001 Results Only [facility] - Alie diez, Bertha Smith MD conversion [address] [place], [place] [id number] [place] [id number] [phone] Social History Tobacco Use Types Packs/Day Years Used Date Never Assessed Sex Assigned at Date Recorded Not on file documented as of this encounter Plan of Treatment Not on filedocumented as of this encounter Procedures Procedure Name Priority Date/Time Associated Diagnosis Comme nts SURGICAL PATHOLOGY Routine 03/02/2001 0:00 EST Re sults for this procedure are i n the results section. documented in this encounter Results SURGICAL PATHOLOGY (03/02/2001 0:00 EST) Pathology Report: SURGICAL PATHOLOGY REPORT LIZETH SANTILLAN Reports generated via electronic interface contain jeff ginal data; LAB however they are lacking the format of the original re port. Caution should be taken when reading/interpreting unfo rmatted reports. Name: ? JUSTIN GREY ? Accession #: ? [id number] ? : ? 1955 (Age: 45) ??M ? Collect Date: ? 03/02/2001 ? Location: ? [facility] ? Receive Date: ? 002 ? Provider: BERTHA WILLARD MD Copy to: ИВАН WALKER MD ? Final Pathologic Diagnosis: ? Skin of cheek, lower, punch biopsy: - Granuloma faciale. Microscopic Description: ? Sections consist of a punch biopsy of skin to the deep reticular dermis. The stratum corneum is composed of a nor mal layer of basketweave orthokeratin. The epidermis is generally of normal thickness but has a diminutive rete architecture. ??The superfic ial reticular dermis is marked by a dense, somewhat nodular, inflammatory infilt rate that surrounds the vascular plexus. ??There is a preserved (grenz) zone between infiltrate and the epid ermis and follicular structures. ??The infiltrate consists of a mixtu re of inflammatory cells with clusters of neutrophils, in addition to eosinophils, plasma cells, lymphocytes, and histiocytes. ??The vessels are dilated and most ar e lined by plump endothelial cells. ??There is erythrocyte extrav asation and focal hemosiderin deposition. ??(Dr. Theodore)/[facility] Document reviewed and electronically signed by: Celina Theodore MD Report ??Date: 03/06/2001 17:32 By the signature above, the attending physician certif ies that he/she has personally conducted a gross and/or microscopic examin ation of the described specimens and rendered or confirmed the above diagnosi s. Specimen(s) Received: ? 3 mm punch bx lower cheek Clinical History: ? Violaceous, sl infilt rated plaque, approximately 2 cm lower cheek; 2 other lesions 1 more atrophic L nose 1 year R/O DLE, ? actin ic change, rosacea. Gross Description: ? Received in formalin labelled Grey is a punch biopsy of skin that measures 0.3 cm in diameter and is excised to a depth of 0.2 cm. ??The cutaneous surface is severino-green to smooth. ??The specimen is subm itted intact in one cassette. ??(Dr. Peres)/[facility] End of Report Specimen Performing Organization Address City/State/ZIP Code Phon e Number [facility] [address] [place] [address] SERVICES [facility] [address] [place] [address] documented in this encounter Visit Diagnoses Not on filedocumented in this encounter Care Teams Residential Real Estate Assistant Relationship Specialty Start Date End Date Иван Seymour MD PCP - General 01/08/09 01/19/[address] [place] [phone] documented as of this encounter
--- OUTSIDE RECORDS SUMMARY | 2021-10-28 14:10 | XMS_ITS | Encounter Summary ---
:1955 Author Organization [facility] [place] [address] Care Team Providers Name Role Phone Es Clinton Primary Care Provider Reason for Visit Reason Onset Date Comments Other 01/25/2020 Faxed signed order f or overnight oximetry CPT to [facility] Encounter Details Date Type Department Care Team Description 03/04/2020 Telephone Pulmonology at [facility] Radha Thomas Other ([facility] [place] [phone] oximetry CPT to [phone] [facility]) Social History Tobacco Use Types Packs/Day Years [...] 11/11/2021 Office Visit Nephrology Jonn Zuniga MD [facility] NEPHROLOGY DEPT [place], [place] [address] (Wo rk) documented as of this encounter Visit Diagnoses Not on filedocumented in this encounter Care Teams Shot Tube Machine Tender Relationship Specialty Start Date End Date Es Clinton PA PCP - General Family Medicine 11/27/19 [address] [place] [address] documented as of this encounter
--- OUTSIDE RECORDS SUMMARY | 2021-10-28 14:10 | XMS_ITS | Encounter Summary ---
:1955 Author Organization [facility] Address [facility] [place] [address] Care Team Providers Name Role Phone Es Clinton Primary Care Provider Reason for Visit Reason Onset Date Comments Other 12/01/2019 Overnight Ox order f axed to [phone] Encounter Details Date Type Department Care Team Description 12/01/2019 Telephone [place]ology [place] [facility] Marina Calles (Overnight Ox [facility] Pacheco, RN order fax ed to Drive [phone]) [place] [address] Social History Tobacco Use Types Packs/Day [...] 11/11/2021 Office Visit Nephrology Jonn Zuniga MD [facility] NEPHROLOGY DEPT [place], [place] [address] (Wo rk) documented as of this encounter Visit Diagnoses Not on filedocumented in this encounter Care Teams Undercover Operator Relationship Specialty Start Date End Date Es Clinton PA PCP - General Family Medicine 11/27/19 [address] [place] [address] documented as of this encounter
--- OUTSIDE RECORDS SUMMARY | 2021-10-28 14:10 | XMS_ITS | Encounter Summary ---
:1955 Author Organization [facility] Address [address] [place] [address] Care Team Providers Name Role Phone Иван Seymour MD Primary Care Provider [phone] Unknown, Provider Primary Care Provider Encounter Details Date Type Department Care Team Description 01/30/2020 Lab Requisition [facility] Outr Resulting Lab, Pathology & Laboratory Provider [facility] [address] [place] [address] Social History Tobacco Use Types Packs/Day Years Used Date Never Assessed Sex Assigned at Date Recorded Not on file documented as of this encounter Plan of Treatment Not on filedocumented as of this encounter Procedures Procedure Name Priority Date/Time Associated Comments Diagnosis PSA TOTAL, Routine 01/29/2020 11:15 Results for this DIAGNOSTIC EST procedure are i n the results section. documented in this encounter Results PSA TOTAL, DIAGNOSTIC (01/29/2020 11:15 EST) Pathologist Sig nature PSA 1.0 0.0 - 4.5 ng/mL [facility] Specimen Blood - Venous blood (substance) Narrative [facility] - 01/30/2020 18:54 EST NOTE: Serum PSA concentration should not be in terpreted as absolute evidence for the presence or absence of malignant disease. Assayed on Siemens ADVIA Centaur XPT usi ng chemiluminescent technology.??Values obtained by using different assay methods cannot be used interchangeably. Performing Organization Address City/State/ZIP Code Phon e Number [facility] [address] [place] [address] SERVICES documented in this encounter Visit Diagnoses Not on filedocumented in this encounter Care Teams Field Tech Relationship Specialty Start Date End Date Иван Seymour MD PCP - General 01/08/09 01/19/[address] [place] [phone] Unknown, Provider, PCP - General 01/20/21 documented as of this encounter
--- OUTSIDE RECORDS SUMMARY | 2021-10-28 14:10 | XMS_ITS | Encounter Summary ---
:1955 Author Organization [facility] [place] [address] Care Team Providers Name Role Phone Es Clinton Primary Care Provider Reason for Visit Reason Comments Coronary Artery Disease Shortness of Breath Hypertension Atrial Fibrillation Encounter Details Date Type Department Care Team Description 03/10/2021 Office Visit [place] [facility] Shalom Grant, Coronary artery disease, uns pecified vessel or lesion type, unspecified whether angina present, unspecified whether jackson or transplanted heart; [facility] NORBERTO Paroxysmal atrial fibrillation; Drive [facility] Congestive heart failure, un specified HF chronicity, unspecified heart failure type; [place], [place] Nonrheumatic mitral valve regurgitation; [id number] [place] [address] Palpitations; [phone] SOB (shortness of breath); (Work) MICHELLE (obstructive sleep apnea) Social History Tobacco Use Types Packs/Day Years [...] Sign Reading Time Taken Comments Blood Pressure 113/55 03/10/2021 3:34 PM EST Pulse 65 03/10/2021 3:34 PM EST Temperature - - Respiratory Rate - - Oxygen Saturation 97% 03/10/2021 3:34 PM EST Inhaled Oxygen Concentration - - Weight 150.3 kg (331 lb 4.8 oz) 03/10/2021 3:34 PM EST Height 172.7 cm (5' 8) 03/10/2021 3:34 PM EST reported Body Mass Index 50.37 03/10/2021 3:34 PM EST documented in this encounter Progress Notes Shalom Grant PA - 03/10/2021 3:40 PM EST Images from the original note were not included. [facility] Interventional Cardiology Reason for Visit: follow up routine, CAD, atrial fibrillation Primary provider: NORBERTO Cage [address] [place] [address] ?? Problem List: Obesity CAD: remote SC. CABG 2018 (SVG-OM, SVG-rPDA), with MV repair A fib, on amio, eliquis. Paroxysmal. Since 2018 cardiac surgery MICHELLE on CPAP MR: severe mr s/p repair 30mm ring CHF: chronic. EF 55%, previously EF 45% post CABG ?? Patient Active Problem List Diagnosis ??? CHF (congestive heart failure) TTE 08/02/2018 ([facility]): ??? Morbid obesity ??? Atrial fibrillation 10/12/17: [...] Cristian Miner is a 65 y.o. male who is seen in cardiology outpatient clinic for routine follow upof his atrial fibrillation and coronary artery disease in the setting of chronic dyspnea. His past medical history is notable for paroxysms of atrial fibrillation first noted in 2018 at the time of his cardiac surgery for severe mitral valve regurgitation and severe coronary artery disease (SVG-OM, SVG-rPDA, and 30mm physio ring for MV repair) with prior DCCV and maintained on eliquis and a miodarone, hypertension, obesity, CHF / HFpEF, MICHELLE on CPAP with home supplemental O2. Last EF 55%, recent normal PFTs. Since last visit, he had to visit the ED as he was dyspneic and volume overloaded. He was admitted for HF exacerbation. He was aggressively diuresed. He felt improved symptomatically. He stopped metolazone as outpatient and switched lasix to torsemide. Recently, he has felt well. He has not gained much weight. Today he has no ankle swelling. He has oxygen at home, but only uses it rarely. He uses it when he feels most short of breath. For example, he would use it when he is cutting wood. His EF has been evaluated at outside hospital and his EF recovered following CABG. Recently the most strenuous activity he does is going up and down two flights of stairs to load the wood stove. When COVID first became evident, he had to quit going to the gym. He continues to use his inhaler. He is using the inhaler regularly. He has no bleeding issues. He has had no chest pain pressure or palpitations. He got a new tractor, Workstir with a log winch, plant changer, and other great attachments. He lives up in near [place], [place]. He does a great job avoiding excess salt, but admits to indulging in sweets and large portions. ALLERGIES: No Known Allergies ?? MEDICATIONS: ?? Current Outpatient Medications: ??? Jardiance 10 mg Tablet, Take 10 [...] by mouth as needed., Disp: , Rfl: ?? ROS: CONSTITUTIONAL: No weight loss, fever, chills, weakness or fatigue. ?? HEENT: Eyes: No visual loss, blurred vision, double vision or scleral iscterus. No sinus tenderness or palpable thyromegaly. SKIN: No rashes. ?? CARDIOVASCULAR: No chest pain, chest pressure or chest discomfort. No palpitations No edema. No orthopnea or PND. No syncope RESPIRATORY: some exertional shortness of breath, no cough or sputum. [...] In general, alert and oriented X 3 pleasant male, overweight/obese, Vitals Office Visit from 03/10/2021 in Cardiology [place] [facility] Weight 150.3 kg (331 lb 4.8 oz) Height 172.7 cm (5' 8) [reported ] BSA (Calculated - sq m) 2.68 sq meters BMI (Calculated) 50.37 Heart Rate 65 BP 113/55 BP Location Left arm Patient Position Sitting SpO2 97 % Eyes: No scleral icterus or pale [...] 2+ radial pulse ?? DIAGNOSTIC TESTS: ?? Echo Pharm Stress Test: SUMMARY: ?? 1. Dobutamine stress echo is [...] (trigeminy). 6. Other details as noted below. ecg: Sinus. Prior inferior infarct. Narrow QRS. Similar to previous. A/P: Cristian Radha Miner is a 65 y.o. male with a history of coronary artery disease and mitral valve disease treated concomitantly in 2018 with 2v CABG and 30mm pysio mitral ring, severe obstructive sleep apnea, paroxysmal atrial fibrillation on rhythm control and anticoagulation and stable chronic dyspnea who presents for routine follow up. ?? While he is overweight and JVP is challenging to accurately assess, he does not have any overt signs today of clinical Heart Failure. We reviewed his medical history and his prior cardiac procedures. We discussed ways to mitigate his cardiovascular risk and goals of care, which include symptom prevention and avoiding hospitalizations. We reviewed salt limitations and dietary restrictions, regular exercise. He knows what symptoms to watch out for (breathlessness, weight gain, chest pressure) that would prompt urgent evaluation. His dyspnea is multifactorial with deconditioning, MICHELLE, obesity, but his heart failure has recently been sub-optimally managed leading to recent ED visit. NYHA Class II - no symptoms at rest. ?? His coronary disease is stable. ??He [...] issues. ??No symptoms. ??Continue current management. His Amio monitoring will include eye exam he will coordinate, LFTs and TSH which will be ordered at next office visit. PFTs had been completed recently. Goal: weight loss of 5 pounds this month, 5 pounds next month. No med changes. Follow up 6 months. NORBERTO Collier 03/10/2021 3:44 PM [facility] Pager [phone] documented in this encounter Plan of Treatment Upcoming Encounters Date Type Specialty Care Team Description 11/11/2021 Office Visit Nephrology Jonn Zuniga MD [facility] NEPHROLOGY [place], [place] [address] (Wo rk) documented as of this encounter Procedures Procedure Name Priority Date/Time Associated Diagnosis Comme nts EKG 12-LEAD Routine 03/10/2021 3:43 PM Coronary artery Result s for this EST disease, unspecified procedu re are in vessel or lesion type, the r esults unspecified whether section. angina present, unspecified whether jackson or transplanted heart Paroxysmal atrial fibrillation Congestive heart failure, unspecified HF chronicity, unspecified heart failure type Nonrheumatic mitral valve regurgitat ion Palpitations SOB (shortness of breath) MICHELLE (obstructive sleep apnea) documented in this encounter Results EKG 12 Lead (03/10/2021 3:43 PM EST) Component Value Ref Range Test Analysis Performed Pathologis t Method Time At Signature Ventricular rate 63 BPM MUSE SYSTEM Atrial Rate 63 BPM MUSE SYSTEM P-R Interval 200 ms MUSE SYSTEM QRS Duration 112 ms MUSE SYSTEM Q-T Interval 460 ms MUSE SYSTEM QTC Calculated 470 ms MUSE SYSTEM (Bezet) Calculated P [place] 58 degrees MUSE SYSTEM Calculated R [place] 49 degrees MUSE SYSTEM Calculated T [place] 14 degrees MUSE SYSTEM INTERPRETATION Normal sinus rhythm MUSE SYSTEM Non-specific intra-ventricular conduction delay Inferior infarct (cited on or before 23-FEB-1995) Abnormal ECG When compared with ECG of 11-MAR-2020 16:18, No significant change was found Confirmed by MD Ezequiel, Francisca ([id number]) on 03/11/2021 8:31:07 AM Specimen Anatomical Collection Method Collection Time Receive d Time (Source) Location / / Volume Laterality 03/10/2021 3:43 PM 8:31 EST AM EST Az Machado MD ECG ORDERABLES Performing Organization Address City/State/ZIP Code Phon e Number MUSE SYSTEM documented in this encounter Visit Diagnoses Diagnosis Coronary artery disease, unspecified ves giovani or lesion type, unspecified whether angina present, unspecified whether mike ve or transplanted heart Paroxysmal atrial fibrillation Atrial fibrillation Congestive heart failure, unspecified HF chronicity, unspecified heart failure type Nonrheumatic mitral valve regurgitation Palpitations SOB (shortness of breath) Shortness of breath MICHELLE (obstructive sleep apnea) Obstructive sleep apnea (adult) (pediatr ic) documented in this encounter Care Teams Food Checker Relationship Specialty Start Date End Date Es Clinton PA PCP - General Family Medicine 11/27/19 [address] [place] [address] documented as of this encounter
--- OUTSIDE RECORDS SUMMARY | 2021-10-28 14:10 | XMS_ITS | Encounter Summary ---
:1955 Author Organization [facility] [address] Care Team Providers Name Role Phone Es Clinton Primary Care Provider Reason for Visit Reason Onset Date Comments Labs Only 10/07/2021 Encounter Details Date Type Department Care Team Description 10/07/2021 Telephone Cardiology at [facility] Karen Wei, [place] [address] Social History Tobacco Use Types Packs/Day [...] Telephone Encounter - Karen Wei, RN - 10/07/2021 4:10 PM EDT Vm from Jessica that Cristian had his labs done but they have not heard the results. Chart reviewed. Labs scanned in From 8-15-22 Will route to provider. Karen Wei RN 4A Cardiology documented in this encounter Plan of Treatment Upcoming Encounters Date Type Specialty Care Team Description 11/11/2021 Office Visit Nephrology Jonn Zuniga MD [facility] [place] [place] [address] (Wo rk) documented as of this encounter Visit Diagnoses Not on filedocumented in this encounter Care Teams Naval Engineer Relationship Specialty Start Date End Date Es Clinton PA PCP - General Family Medicine 11/27/19 [address] [place] [address] documented as of this encounter
--- OUTSIDE RECORDS SUMMARY | 2021-10-28 14:11 | XMS_ITS | Encounter Summary ---
:1955 Author Organization [facility] Address [facility] [address] [place] [address] Care Team Providers Name Role Phone Es Clinton Primary Care Provider Encounter Details Date Type Department Care Team Description 09/14/2019 Orders Only Pulmonology at [facility] Alexandria Gilbert MD Coronary artery [facility] dis ease, angina Drive DR presence unspecified, [place] [address] PULMONARY MEDICINE unspecified vessel or [phone] [place], [place] [address] lesion type, unspecified whe ther (Work) ramona or transplanted heart (Pr imary Dx) Social History Tobacco Use Types Packs/Day Years Used Date Former Smoker Cigarettes Quit: 08/16/18 96 Smokeless Tobacco: Never Used [...] Visit Nephrology Jonn Zuniga MD [facility] NEPHROLOGY [place], [place] [address] (Wo rk) documented as of this encounter Results Pulmonary Function Testing (09/17/2019 11:59 PM EDT) Narrative Wanda Zhang MD - 09/17/2019 11:59 PM E DT Wanda Zhang MD ? 10/02/2019 12:57 PM Pulmonary Function Test Interpretation FEV1 is normal. ??FVC is normal. ??The F EV1/FVC ratio is normal. diffusion capacity was normal. Resting oxyhemoglobin saturation was nor mal. Impression: Normal pulmonary function te sting. Wanda Zhang MD Alexandria Gilbert MD PFT ORDERABLES documented in this encounter Visit Diagnoses Diagnosis Coronary artery disease, angina presence unspecified, unspecified vessel or lesion type, unspecified whether ramona or verde splanted heart - Primary Coronary artery disease, angina presence unspecified, unspecified vessel or lesion type, unspecified whether ramona or verde splanted heart documented in this encounter Care Teams Client Retention Specialist Relationship Specialty Start Date End Date Es Clinton PA PCP - General Family Medicine 08/09/17 10/09/19 [address] [place] [address] documented as of this encounter
--- OUTSIDE RECORDS SUMMARY | 2021-10-28 14:11 | XMS_ITS | Encounter Summary ---
:1955 Author Organization [facility] [address] Care Team Providers Name Role Phone Es Clinton Primary Care Provider Reason for Visit Reason Comments Coronary Artery Disease Shortness of Breath Ekg Atrial Fibrillation Encounter Details Date Type Department Care Team Description 08/10/2018 Office Visit Cardiology at [facility] Shalom Grant, Paroxysmal atrial fibrillati on; [facility] NORBERTO Coronary artery disease, angina presence unspecified, unspecified vessel or lesion type, unspecified whether ekwok or transplanted heart; [facility] Non-rheumatic mitral regurgi tation; [place], [place] MICHELLE (obstructive sleep apnea); [id number] [place] [address] Palpitations; [phone] SOB (shortness of breath) (Work) Social History Tobacco Use Types Packs/Day Years [...] Sign Reading Time Taken Comments Blood Pressure 122/76 08/10/2018 2:37 PM EDT Pulse 78 08/10/2018 2:37 PM EDT Temperature - - Respiratory Rate - - Oxygen Saturation 95% 08/10/2018 2:37 PM EDT Inhaled Oxygen Concentration - - Weight 136.1 kg (300 lb) 08/10/2018 2:37 PM EDT Height 175.3 cm (5' 9.02) 08/10/2018 2:37 PM EDT Body Mass Index 44.28 08/10/2018 2:37 PM EDT documented in this encounter Progress Notes Shalom Grant PA - 08/10/2018 2:40 PM EDT Images from the original note were not included. [facility] Interventional Cardiology Reason for Visit: follow up for recent hospitalization for palpitations Primary provider: NORBERTO Cage [address] [place] [address] ?? Problem List: Patient Active Problem List Diagnosis ??? Morbid obesity ??? Atrial fibrillation 10/12/17: [...] grafts) Prior history CAD, angioplasty in 1980s HPI: Cristian Miner is a 62 y.o. male with a past medical history as above notable for paroxysms of atrial fibrillation with a history of RVR, obesity, MICHELLE, coronary artery disease s/p 2 vein grafts who presents for follow up after a recent hospitalization for atrial fibrillation recurrence at outside hospital. He previously has followed with Dr Brewster and with the electrophysiology team. Last seen02/2018 at which point amiodarone was reduced and eliquis was started in favor of Warfarin. He lives in [place], [place]. He has had at least two admissions for atrial fibrillation in the last year. Recent hospitalization for rapid atrial fibrillation. He reports he feels palpitations when he is in atrial fibrillation, and his HR monitor read pulse rate of 150s which brought him to hospital. He also was noticing a bad headache and neck pain, but no neck or jaw pain. He denies diaphoresis. No syncope, dyspnea. No orthopnea, bendopnea or difficulty lying flat. He has had no chest pain or discomfort. The episodes of palpitations come on with no warning, and have occurred with exertion and rest, and have usually self terminated after a few minutes. He has had this before. He underwent DCCV while hospitalized post CABG. Since discharge he has been doing well, he has been taking his medications, and he has not had a recurrence of symptoms. Titration of HF medications has been difficult given low blood pressure. He does take an additional lasix dose (for a total of 40mg daily) about once monthly depending on his symptoms. Otherwise he takes 20mg daily lasix. Cardiac Problem List: CAD s/p 2v CABG with svg-OM and SVG-rPDA at time of mitral repair 2018 A fib, with history of RVR MR Cardiac Meds: Metoprolol xl 50mg amio 200 eliquis 5mg bid Furosemide 40mg Aspirin 81 atorva 40 Former tobacco smoker. Yes obese. Yes coronary disease. No diabetes. No alcohol. ALLERGIES: No Known Allergies ?? MEDICATIONS: ?? Current Outpatient Medications: ??? docusate sodium (COLACE) 100 mg Capsule, [...] daily., Disp: 180 tablet, Rfl: 3 ??? furosemide (LASIX) 40 mg Tablet, 20 mg daily., Disp: , Rfl: ??? acetaminophen (TYLENOL) 500 mg Tablet, Take [...] chest pain, chest pressure or chest discomfort. Palpitations as described. No edema. No orthopnea or PND. No syncope RESPIRATORY: No shortness of breath, cough or sputum. No hemoptysis GASTROINTESTINAL: No [...] X 3 obese male in no acute distress. Vitals Office Visit from 08/10/2018 in Cardiology at [place] Weight 136.1 kg (300 lb) Height 175.3 cm (5' 9.02) BSA (Calculated - sq m) 2.57 sq meters BMI (Calculated) 44.28 Heart Rate 78 BP 122/76 SpO2 95 % Eyes: No scleral icterus [...] not examined. Psych: Mood appropriate Extremity: RLE: 1+LE edema to ankle LLE: 1+ LE edema RUE: 2+ radial pulse LUE: 2+ radial pulse ?? DIAGNOSTIC TESTS: ?? ECG 08/10/2018 Sinus rhythm. Inferior previous infarct with pathologic q waves in Lead II, III, aVF. Similar to previous. No evidence of active ischemia or conduction abnormalities. TTE 08/02/2018 TTE 11/17/2017 1. Technically limited study. 2. Status post mitral valve repair and CABG on 10/07/17. 3. The left ventricular chamber size is normal. There is mild septal hypertrophy of the left ventricle. Global left ventricular systolic function is mildly reduced. Ejection fraction is estimated to be 45%. There are left ventricular segmental wall motion abnormalities present, as shown in the diagram below. 4. The right ventricle is normal in size. Right ventricular global systolic function is normal. Pulmonary artery hypertension could not be assessed due to inadequate tricuspid regurgitation jet. 5. Status-post placement of a mitral valve ring. There is trace mitral regurgitation present. The mean gradient across the mitral valve is 4 mmHg @ 64 bpm. 6. See remainder of report for additional findings. A/P: Cristian Miner is a 62 y.o. male seen for follow up after recent hospitalization with recurrence of rapid atrial fibrillation. He is hemodynamically stable and pain free today, and euvolemic on exam. A fib: paroxysmal, rate controlled, on apixaban for thromboembolic protection, on metoprolol for rate control. He now reports 2-3 breakthrough episodes of a fib with RVR during which he is quite symptomatic. It would be possible to increase his amiodarone again, and see if this suppresses the a fib. For now, I have advised him to take an additional dose of metoprolol if he becomes symptomatic. We will monitor his symptoms and reevaluate in 1-2 months. Can also consider repeat cardioversion if he remains symptomatic and we will discuss this option with the EP team. He will remain anticoagulated. MV disease: s/p MVR with annuloplasty ring. His dyspnea has improved markedly. Trivial MR on echo last week. Excellent result here, although he still has occasional swelling of legs which is managed byoral diuretic. Coronary artery disease: stable with no anginal symptoms. On guideline directed therapy. BP well controlled. He can focus on dietary restrictions and lifestyle modifications to include weight loss, more exercise. Baseline dry weight/euvolemic weight is roughly 295 lbs. We did discuss the nature of coronary disease as well as atrial fibrillation and our management strategy. HE is advised to seek local medical care should he develop any new symptoms such as worsening dyspnea, chest pain or other illness. Recommendations: 1: metoprolol extra/additional dosing allowable for symptomatic episodes of fast A-fib 2: lasix as needed. 20mg daily, may take additional dose if >3 pound weight gain. NORBERTO Collier 08/10/2018 2:54 PM [facility] Pager [phone] documented in this encounter Plan of Treatment Upcoming Encounters Date Type Specialty Care Team Description 11/11/2021 Office Visit Nephrology Jonn Zuniga [facility] [place], [place] [address] (Wo rk) documented as of this encounter Procedures Procedure Name Priority Date/Time Associated Diagnosis Comme nts EKG 12-LEAD Routine 08/10/2018 2:49 PM Paroxysmal atrial Resu lts for this EDT fibrillation procedure are in Coronary artery the results disease, angina section. presence unspecified, unspecified vessel or lesion type, unspecified whether [place] or transplanted heart Non-rheumatic mitral regurgitation MICHELLE (obstructive sleep apnea) Palpitations SOB (shortness of breath) documented in this encounter Results EKG 12 Lead (08/10/2018 2:49 PM EDT) Component Value Ref Range Test Analysis Performed Pathologis t Method Time At Signature Ventricular rate 72 BPM MUSE SYSTEM Atrial Rate 72 BPM MUSE SYSTEM P-R Interval 162 ms MUSE SYSTEM QRS Duration 114 ms MUSE SYSTEM Q-T Interval 418 ms MUSE SYSTEM QTC Calculated 457 ms MUSE SYSTEM (Bezet) Calculated P [place] 61 degrees MUSE SYSTEM Calculated R [place] 62 degrees MUSE SYSTEM Calculated T [place] 77 degrees MUSE SYSTEM INTERPRETATION Normal sinus rhythm MUSE SYSTEM Possible Inferior infarct (cited on or before 23-FEB-1995) Abnormal ECG When compared with ECG of 10-NOV-2017 14:16, No significant change was found Confirmed by MD BRONWYN, MANDI ([id number]) on 08/10/2018 3:05:59 PM Specimen Anatomical Collection Method Collection Time Receive d Time (Source) Location / / Volume Laterality 08/10/2018 2:49 PM 9 3:05 EDT PM EDT Courtney Brewster MD ECG ORDERABLES Performing Organization Address City/State/ZIP Code Phon e Number MUSE SYSTEM documented in this encounter Visit Diagnoses Diagnosis Paroxysmal atrial fibrillation Atrial fibrillation Coronary artery disease, angina presence unspecified, unspecified vessel or lesion type, unspecified whether [place] or [place] spl[place] heart Non-rheumatic mitral regurgitation Mitral valve disorders MICHELLE (obstructive sleep apnea) Obstructive sleep apnea (adult) (pediatr ic) Palpitations SOB (shortness of breath) Shortness of breath documented in this encounter Care Teams Line Prep Cook Relationship Specialty Start Date End Date Es Clinton PA PCP - General Family Medicine 08/09/17 10/09/19 [address] [place] [address] documented as of this encounter
--- OUTSIDE RECORDS SUMMARY | 2021-10-28 14:11 | XMS_ITS | Encounter Summary ---
:1955 Author Organization [facility] [place] [address] Care Team Providers Name Role Phone Es Clinton Primary Care Provider Reason for Referral Diagnostic Test (Routine) - Closed Specialty Diagnoses / Procedures Referred By Contact Refer red To Contact Radiology Diagnoses Dyspnea on exertion Exercise hypoxemia Class 3 severe obesity with body mass index (BMI) of 45.0 to 49.9 in adult, unspecified obesity type, unspecified whether serious comorbidity present Omer Mota MD [facility] Rad Ct Scan Procedures CT Chest wo Contrast (Generic) [facility] [address] [place] [address] [place] [address] Referral ID Status Reason Start Date Expiration Date Visits V isits Requested Authorized [id number] Closed Specialty 11/28/2019 05/28/2021 1 1 Service Requested Reason for Visit Reason Comments Follow-up Encounter Details Date Type Department Care Team Description 11/27/2019 Office Visit Pulmonology at [facility] Omer Mota, MICHELLE (obstructive sleep apnea ); [facility] Dyspnea on exertion; Drive [facility] Exercise hypoxemia; [place] [address] Class 3 severe obesity with body mass in dex (BMI) of 45.0 to 49.9 in adult, unspecified obesity type, unspecified whether serious comorbidity present [phone] Pulmonary Medici [facility] [place] Patricia Social History Tobacco Use Types Packs/Day Years [...] Sign Reading Time Taken Comments Blood Pressure 127/54 11/27/2019 2:28 PM EDT Pulse 64 11/27/2019 2:28 PM EDT Temperature 37 ??C (98.6 ??F) 11/27/2019 2:28 PM EDT Respiratory Rate 20 11/27/2019 2:28 PM EDT Oxygen Saturation 96% 11/27/2019 2:28 PM EDT Inhaled Oxygen Concentration - - Weight 136.1 kg (300 lb) 11/27/2019 2:28 PM EDT Height 172.7 cm (5' 8) 11/27/2019 2:28 PM EDT Body Mass Index 45.61 11/27/2019 2:28 PM EDT documented in this encounter Progress Notes mOer Mota MD - 11/27/2019 2:30 PM EDT Pulmonary Follow-Up Visit Date of Encounter: 11/27/19 PCP: NORBERTO Cage [address] [place] [address] Reason for Visit: Follow Up Dyspnea on Exertion Of note, patient was due to see Dr. Phillip but she was unfortunately unavailable today. I saw the patient in her place. Pulmonary Background: ?? 1-2 years dyspnea on exertion worse mid 2019 onwards ?? CABG 2018 with mitral valve repair, diastolic heart failure, paroxysmal A Fib ?? 40 pack year smoking history ?? MICHELLE on CPAP ?? Obesity Body mass index is 45.61 kg/m??. Subjective: Mr. Miner is a 64-year-old man who was seen via telehealth by my colleagues, Dr. Phillip and Dr. Merino, in mid September. I reviewed their notes. Mr. Bui developed some dyspnea on exertion following coronary artery bypass grafting in 2018. Things seem to have worsened this year and an increase in diuretics has made no difference to his symptoms. He has no significant dyspnea walking from room to room butlonger walks on the flat or climbing a flight of stairs always make him very short of breath. He hasno real cough or sputum production and no wheezing. He is obese but his weight has been around a 300pound gemma for many years and he reports no dyspnea at this weight prior to his coronary artery bypass grafting. He does have some degree of heart failure and a recent echocardiogram showed a preserved ejection fraction but with residual wall motion abnormalities. Stress test was negative for ischemia with a max heart rate of 130 (submaximal test ) chest x-ray is clear and pulmonary function tests showed a low normal FVC, no evidence of airflow obstruction and a normal range DLCO. He has not had a recent CT scan of the chest but his mentions a pulmonary nodule visualized at some point previously on CT chest. He owns his own CPAP equipment, no recent downloadable titration, and buys his own mask and hose supplies. Current Outpatient Medications Medication Sig Dispense Refill ??? furosemide (Lasix) 20 mg Tablet Take 3 tablets by mouth daily. 1-2 tablets 270 tablet 3 ??? buPROPion SR (WELLBUTRIN SR) 150 mg tablet sustained-release 12 hr 150 mg daily. ??? metoprolol tartrate (LOPRESSOR) 50 mg [...] hr Take 0.4 mg by mouth daily. ??? docusate sodium (COLACE) 100 mg Capsule Take 100 mg by mouth 2 times daily. No current facility-administered medications for this visit. No change in past medical, family or social history Examination: BP 127/54 Pulse 64 Temp 37 ??C (98.6 ??F) Resp 20 Ht 172.7 cm (5' 8) Wt 136.1 kg (300 lb) SpO2 96% BMI 45.61 kg/m?? Obese No clubbing no cyanosis No obvious elevation of jugular venous pressure Bilateral ankle edema noted Data Review: I reviewed available CXR, PFT and Echo stress test as detailed above Ambulatory oximetry performed today by me: ?? 93% RA at rest, walked 400 feet, 86% on RA ?? 96% on 2L.min at rest, walked a further 400 feet with sat wendy 92% Decision Making/Plan: ??? It is possible that Cristian's dyspnea or is related to his history of ischemic heart disease and valvular heart disease. I think the mechanism would have to be diastolic heart failure leading to exercise-induced pulmonary hypertension and subsequent hypoxemia. However, it would be good to rule out a couple of potential pulmonary conditions including amiodarone pulmonary toxicity and excessive dynamic airway collapse (EDAC) ??? He did derive symptomatic benefit from supplemental oxygen and so I will send a prescription to [facility] for small volume portable tanks ??? Overnight oximetry on CPAP (room air) to see if we need to addoxygen to his CPAP ??? CT Chest to evaluate for any pulmonary nodules (history of this), amiodarone toxicity or tracheobronchomalacia / EDAC ??? Aim for follow up same day as CT Omer Mota MD documented in this encounter Plan of Treatment Upcoming Encounters Date Type Specialty Care Team Description 11/11/2021 Office Visit Nephrology Jonn Zuniga MD [facility] NEPHROLOGY [place], [place] [address] (Wo rk) documented as of this encounter Results CT Chest wo Contrast [...] For questions regarding this report, please contact [facility] number below. ? Electronically signed by: Anne Rodriguez MD, [facility] ([phone]), at 02/14/2020 11:43 AM Narrative 02/14/2020 11:43 AM EST EXAMINATION: CT [...] 2.5 mm thick sections were obtained thro [facility] the chest via helical acquisition using low [...] No bronchiectasis. Trachea morphology: Round. Central airways [id number] phylicia freddy dimensions: Trachea at level of [...] P rosthetic mitral valve. Moderate to marked [place] coronary artery calcificat ion; status post coronary [...] 2.5 mm thick sections were obtained thro [facility] the chest via helical acquisition using low [...] No bronchiectasis. Trachea morphology: Round. Central airways [id number] phylicia freddy dimensions: Trachea at level of [...] P rosthetic mitral valve. Moderate to marked [place] coronary artery calcificat ion; status post coronary [...] report, please contact th e number below. Omer Mota MD IMG CT ORDERABLES documented in this encounter Visit Diagnoses Diagnosis MICHELLE (obstructive sleep apnea) Obstructive sleep apnea (adult) (pediatr ic) Dyspnea on exertion Other dyspnea and respiratory abnormalit y Exercise hypoxemia Hypoxemia Class 3 severe obesity with body mass in dex (BMI) of 45.0 to 49.9 in adult, unspecified obesity type, unspecified wh ether serious comorbidity present Dyspnea on exertion Other dyspnea and respiratory abnormalit y Exercise hypoxemia Hypoxemia Class 3 severe obesity with body mass in dex (BMI) of 45.0 to 49.9 in adult, unspecified obesity type, unspecified wh ether serious comorbidity present documented in this encounter Care Teams Structural Engineering Technician Relationship Specialty Start Date End Date Es Clinton PA PCP - General Family Medicine 11/27/19 [address] [place] [address] documented as of this encounter
--- OUTSIDE RECORDS SUMMARY | 2021-10-28 14:11 | XMS_ITS | Encounter Summary ---
:1955 Author Organization [facility] [place] [address] Care Team Providers Name Role Phone Es Clinton Primary Care Provider Encounter Details Date Type Department Care Team Description 09/28/2019 Telephone Pulmonology at [facility] [address]z [place] [address] Social History Tobacco Use Types Packs/Day [...] 11/11/2021 Office Visit Nephrology Jonn Zuniga MD [facility] NEPHROLOGY DEPT [place], [place] [address] (Wo rk) documented as of this encounter Visit Diagnoses Not on filedocumented in this encounter Care Teams Director Of Search Engine Optimization Relationship Specialty Start Date End Date Es Clinton PA PCP - General Family Medicine 08/09/17 10/09/19 [address] [place] [address] documented as of this encounter
--- OUTSIDE RECORDS SUMMARY | 2021-10-28 14:11 | XMS_ITS | Encounter Summary ---
:1955 Author Organization [facility] [place] [address] Care Team Providers Name Role Phone Es Clinton Primary Care Provider Reason for Visit Consultation (Urgent) - Closed Specialty Diagnoses / Procedures Referred By Contact Refer red To Contact Cardiology Diagnoses NEAR SYNCOPE Es Clinton PA [facility]a [address] [place] [address] [place] [address] Referral ID Status Reason Start Date Expiration Date Visits V isits Requested Authorized [id number] Closed Consult, 02/28/2018 02/28/2019 6 6 [facility] Encounter Details Date Type Department Care Team Description 03/03/2018 Office Visit [place]iology [place] [facility] [place], Coronary artery disease, ang solis presence unspecified, unspecified vessel or lesion type, unspecified whether little shell tribe or transplanted heart; [facility] Sharif Bergman MD Paroxysmal atrial fibrillation; [facility] (shortness of breath); [place], [place] [address] MARTINEZ (obstructive sleep apnea); [id number] CARDIOLOGY DEPT Palpitations; [phone] [place], [place] [address] Non-rheumatic mitral regurgitation Social History Tobacco Use Types Packs/Day Years [...] Sign Reading Time Taken Comments Blood Pressure 136/80 03/03/2018 10:51 AM EST Pulse 76 03/03/2018 10:51 AM EST Temperature - - Respiratory Rate - - Oxygen Saturation 96% 03/03/2018 10:51 AM EST Inhaled Oxygen Concentration - - Weight 138.3 kg (304 lb 14.4 oz) 03/03/2018 10:51 AM EST Height 175.3 cm (5' 9) 03/03/2018 10:51 AM EST Body Mass Index 45.03 03/03/2018 10:51 AM EST documented in this encounter Patient Instructions Patient InstructionsSharif Brewster MD - 03/03/2018 10:40 AM EST Decrease amiodarone to 100 mg. We will add back eliquis and stop warfarin. Finish warfarin. Start eliquis 5 days after stopping warfarin. documented in this encounter Progress Notes Sharif Brewster MD - 03/03/2018 10:40 AM EST Images from the original note were not included. Impression: . Morbid obesity . Moderate to severe MR- s/p repair trace MR . LV regional wall motion abn, EF 45% since at least 2014 . MICHELLE . Atrial fibrillation with history RVR, on eliquis for chadsvasc 3, paroxysmal . History CAD, angioplasty in 1980s . Borderline low BP limiting HF medications . History perfusion study with moderate fixed defect in RCA or LCx . Cr 0.95 . Prediabetes, on metformin . LV dilation (systolic dimension 45 mm) Plan: Decrease amio to 100 mg. Given patient preferences, switch to eliquis from warfarin. Metoprolol reduced to bid. Note sent to Dr Tiwari inquiring about ERI occlusion at time of surgery- I do not see this in operative report. Participated in cardiac rehab for only a couple days, but then had to go back to work, and could notcontinue. Follow up in 3-6 months' time. History: 62 year old man with mild improvement in . He lost 50 lbs this winter on a calorie restricted diet and with exercise. Atrial fib- admission for RVR. Reduced EF- history CAD, s/p CABG. Moderate to severe MR- s/p repair. Slow recovery, NYHA Class II, no angina. From most recent visit prior to surgery: Recently went on treadmill, couldn't get HR up after 10 minutes. No chest pain. He was tired. He does report chest pain at rest intermittently. 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 Notes from recent cardiology consult with Dr Fortune on July 22, 2017 during admission for afib. Case Date: 10/07/2017 ?? Surgeon: Surgeon(s) and Role: * Juan Alberto Tiwari MD - Primary ?* Cal Watson PA - Physician Legal Recruiter ?* Emily Avina PA - Physician Legal Recruiter ?? Preoperative diagnosis: CAD, MR ?? Postoperative diagnosis:??CAD, MR, same, severe prebyapss MR (restricted motion, annular dilitation). ??and pulmonary hypertension. Post bypass JAYLON, No residual MR, EF 50%, significant decrease in PA pressures. ?? Procedure(s) (LRB): ENDOSCOPIC HARVEST VEIN(S) FOR CABG (WRVU 0.31) (N/A) @VALVULOPLASTY, MITRAL VALVE, W\CPB; W\PROSTHETIC RING (WRVU 43.28) (N/A) @CABG, VEIN ONLY;TWO CORONARY VENOUS GRAFTS (WRVU 38.45) (N/A) ?? MV repair, reduction annuloplasty with a 30mm physio II ?? CABGx2, SVG-> OM, SVG->PDA ?? PROBLEM LIST: Patient Active Problem List Diagnosis ??? Morbid obesity ??? Atrial fibrillation 10/12/17: Direct current cardioversion ??? MICHELLE (obstructive sleep apnea) ??? SOB (shortness of breath) ??? Palpitations ??? Mitral regurgitation 10/07/17??Mitral valve repair, CABGx2 (two venous grafts) ??? CAD (coronary artery disease) 10/07/17 Mitral valve repair, CABGx2 (two venous grafts) Past Medical History: Diagnosis Date ??? CAD (coronary artery disease) angioplasty ??? Mitral regurgitation s/p MVR with ring 09/2017 See above Past Surgical History: Procedure Laterality Date ??? KNEE ARTHROSCOPY ??? LAPAROTOMY diverticula ? ? PRG JAYLON REAL TIME IMG 2D W PRB IMG ACQUIS I&R N/A 09/15/2017 TRANSESOPHAGEAL ECHOCARDIOGRAM (WRVU 2.55) performed by Td Ayala MD at [facility] MAIN OR ??? PRO CABG, VEIN, TWO N/A 10/07/2017 @CABG, VEIN ONLY;TWO CORONARY VENOUS GRAFTS (WRVU 38.45) performed by Juan Alberto Tiwari MD at [facility] MAIN OR ??? PRO CARDIOVERSION N/A 10/12/2017 CARDIOVERSION-ELECTIVE (WRVU 2.25) performed by Romel Call PA at [facility] MAIN OR ??? PRO ENDOSCOPY W/VIDEO-ASST VEIN HARVEST, CABG N/A 10/07/2017 ENDOSCOPIC HARVEST VEIN(S) FOR CABG (WRVU 0.31) performed by Juan Alberto Tiwari MD at [facility] MAIN OR ??? PRO MITRALPLASTY W PROSTHETIC RING N/A 10/07/2017 @VALVULOPLASTY, MITRAL VALVE, W\CPB; W\PROSTHETIC RING (WRVU 43.28) performed by Juan Alberto Tiwari MD at [facility] MAIN OR PAST SURGICAL HISTORY: No surgery to chest or radiation. 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 FAMILY HISTORY: Father with cardiomyopathy at age 78. MEDICATIONS: Current Outpatient Medications Medication Sig Dispense Refill ??? docusate sodium (COLACE) 100 mg Capsule Take 100 mg by mouth 2 times daily. ??? furosemide (LASIX) 40 mg Tablet 20 mg daily. ??? acetaminophen (TYLENOL) 500 mg Tablet Take 2 tablets by mouth every 6 hours as needed for Pain. 30 tablet 1 ??? AMIOdarone (CORDARONE; PACERONE) 200 mg Tablet Take 1 tablet by mouth daily. 30 tablet 0 ??? metoprolol tartrate (LOPRESSOR) 50 mg Tablet Take 1 tablet by mouth every 8 hours. 180 tablet 3 ??? warfarin (COUMADIN) 1 mg Tablet Take 2 tablets by mouth daily. Per INR 100 tablet 3 ??? albuterol 90 mcg/actuation HFA Aerosol Inhaler [...] Take 0.4 mg by mouth daily. No current facility-administered medications for this visit. ALLERGIES: Reviewed and updated as appropriate in the medical record: Patient has no known allergies. PHYSICAL EXAMINATION: Vitals: Wt Readings from Last 3 Encounters: 03/03/18 (!) 138.3 kg (304 lb 14.4 oz) 11/17/17 128.8 kg (284 lb) 11/10/17 126.1 kg (278 lb) Temp Readings from Last 3 Encounters: 10/18/17 37 ??C (98.6 ??F) (Oral) 09/15/17 36.8 ??C (98.2 ??F) (Temporal) 08/16/17 36.6 ??C (97.9 ??F) (Temporal) BP Readings from Last 3 Encounters: 03/03/18 136/80 11/17/17 120/70 11/10/17 139/77 Pulse Readings from Last 3 Encounters: 03/03/18 76 11/17/17 72 11/10/17 71 Comprehensive cardiovascular exam Constitutional: The patient is bright, cheerful and without complaints. Psych: They are able to relay the details of their medical course and future planning with ease, andare oriented. There is not a suggestion of cognitive decline or memory issues or abnormal mood. Eyes: no xanthelasma or reddening of conjunctiva ENMT: atraumatic, unremarkable dentition, oropharynx clear with moist mucus membranes and no mucosalulcerations Neck: JVP is easily seen with the patient sitting upright and is estimated at less than 10 cm water Cardiovascular: Heart rhythm is regular. PMI is palpated and is not displaced; there is no RV lift. S1 S2 are well heard, and there is no further holo systolic murmur at the apex only; no diastolic murmur, nor rubs or gallops. Pulm: decreased breath sounds lower left lobe. Peripheral pulses are felt and are 2+ (radial). Extremities: No stasis dermatitis or open ulcers Respiratory: Clear to auscultation bilaterally; no labored breathing Abdomen (GI): abd is soft, NT, ND. Musculoskeletal: the patient has no difficulty arising from a chair and has no significant kyphosis Skin: there are no visible lesions or rashes and on palpation, there is 1+ pitting edema. Neuro: there are no gross neurologic deficits- the patient can move all 4 limbs and has normal speech. There is no facial droop. TESTING: Labs (including hgb, plt, INR, Cr, lipids if available): Lab Results Component Value Date WBC 9.3 10/11/2017 HGB 12.2 (L) 10/11/2017 HCT 36.8 (L) 10/11/2017 PLATELET 141 (L) 10/11/2017 ALT 20 08/25/2017 AST 14 08/25/2017 NA 132 (L) 10/10/2017 K 4.3 10/18/2017 CL 96 (L) 10/10/2017 CREATININE 0.68 (L) 10/10/2017 BUN 21 (H) 10/10/2017 CO2 25 10/10/2017 INR 2.5 10/18/2017 GLUCFASTING 175 (H) 10/08/2017 Lab Results Component Value Date INR 2.5 10/18/2017 No results found for this or any previous visit (from the past 72 hour(s)). I spoke with multiple other health care providers about the recommended plan. For referring providers: Thank you for requesting this consultation. For questions, please feel freeto contact me: [phone] (multimedia production assistant Dayton Sarmiento, and he will have me paged) or [email or web address]. Cristian Miner 03/03/2018 Referring Providers: NORBERTO Cage, NORBERTO Cooper [address] [place] [address] SHARIF BREWSTER MD 03/03/2018 CC: NORBERTO Cage documented in this encounter Plan of Treatment Upcoming Encounters Date Type Specialty Care Team Description 11/11/2021 Office Visit Nephrology Jonn Zuniga MD [facility] MEDICAL [facility] NEPHROLOGY [place], [place] [address] (Wo rk) documented as of this encounter Visit Diagnoses Diagnosis Coronary artery disease, angina presence unspecified, unspecified vessel or lesion type, unspecified whether little shell tribe or verde splanted heart Paroxysmal atrial fibrillation Atrial fibrillation SOB (shortness of breath) Shortness of breath MICHELLE (obstructive sleep apnea) Obstructive sleep apnea (adult) (pediatr ic) Palpitations Non-rheumatic mitral regurgitation Mitral valve disorders documented in this encounter Care Teams Gas Line Installer Supervisor Relationship Specialty Start Date End Date Es Clinton PA PCP - General Family Medicine 08/09/17 10/09/19 [address] [place] [address] documented as of this encounter
--- OUTSIDE RECORDS SUMMARY | 2021-10-28 14:11 | XMS_ITS | Encounter Summary ---
:1955 Author Organization [facility] [place] [address] Care Team Providers Name Role Phone Es Clinton Primary Care Provider Encounter Details Date Type Department Care Team Description 11/30/2019 Telephone Pulmonology at [facility] [place] [address] Social History Tobacco Use Types Packs/Day [...] Encounter - Suad Patterson RT - 11/30/2019 10:19 AM EDT faxed oxygen order, demographics and clinical documentation to [facility]. [phone] documented in this encounter Plan of Treatment Upcoming Encounters Date Type Specialty Care Team Description 11/11/2021 Office Visit Nephrology Jonn Zuniga MD [facility] MEDICAL [facility] ER NEPHROLOGY DEPT [place], [place] [address] (Wo rk) documented as of this encounter Visit Diagnoses Not on filedocumented in this encounter Care Teams Residential Instructor Relationship Specialty Start Date End Date Es Clinton PA PCP - General Family Medicine 11/27/19 [address] [place] [address] documented as of this encounter
--- OUTSIDE RECORDS SUMMARY | 2021-10-28 14:11 | XMS_ITS | Encounter Summary ---
:1955 Author Organization [facility] [place] [address] Care Team Providers Name Role Phone Es Clinton Primary Care Provider Encounter Details Date Type Department Care Team Description 11/30/2019 Telephone [place]ology [place] [facility] [place] Suad Patterson, [place] [address] Social History Tobacco Use Types Packs/Day [...] Encounter - Suad Patterson RT - 11/30/2019 10:30 AM EDT Called Cristian Radha Isidra at home and oxygen [facility] to [facility] in [facility], provided contact numberfor their office: documented in this encounter Plan of Treatment Upcoming Encounters Date Type Specialty Care Team Description 11/11/2021 Office Visit Nephrology Jonn Zuniga MD [facility] ER NEPHROLOGY [place], [place] [address] (Wo rk) documented as of this encounter Visit Diagnoses Not on filedocumented in this encounter Care Teams Manager Of Applications Development Relationship Specialty Start Date End Date Es Clinton PA PCP - General Family Medicine 11/27/19 [address] [place] [address] documented as of this encounter
--- OUTSIDE RECORDS SUMMARY | 2021-10-28 14:11 | XMS_ITS | Encounter Summary ---
:1955 Author Organization [place] [address] Care Team Providers Name Role Phone Es Clinton Primary Care Provider Encounter Details Date Type Department Care Team Description 10/08/2019 Telephone Pulmonology at [facility] [place] Gina Madrigal, [place] [address] Social History Tobacco Use Types Packs/Day [...] this encounter Miscellaneous Notes Telephone Encounter - Gina Madrigal, [facility] - 10/08/2019 1:44 PM EDT GAP Glass Block Installer Pre-Telemedicine Phone Note [] Patient not reached [x] Patient reached and the following information was reviewed/obtained per protocol: [x] Confirmed patient name and date of [] Confirmed telemedicine oniel (Vidyo and Virtual Visit) is downloaded and functioning [] Confirmed location of patient - TeleVisit is taking place in [] [place] [] [place] [] If not on [facility], working on signing up for [facility] [] Confirmed has completed any pre-visit questionnaires [] If has not received required pre-visit questionnaires, send via [facility] [x] Reviewed patient medications ??? buPROPion SR (WELLBUTRIN SR) 150 mg tablet sustained-release 12 hr ??? furosemide (LASIX) 20 mg Tablet ??? docusate sodium (COLACE) 100 mg Capsule ??? metoprolol tartrate (LOPRESSOR) 50 mg Tablet ??? AMIOdarone (CORDARONE; PACERONE) 200 mg Tablet ??? apixaban (ELIQUIS) 5 mg Tablet ??? acetaminophen (TYLENOL) 500 mg Tablet ??? albuterol 90 mcg/actuation HFA Aerosol Inhaler ??? aspirin 81 mg Tablet, Delayed Release (E.C.) ??? atorvastatin (LIPITOR) 40 mg Tablet ??? tamsulosin (FLOMAX) 0.4 mg Capsule, Sust. Release 24 hr [x] Documented self-reported vitals: [x] Weight: 300lb [x] Height 5'7 [] pulse recorded: [] Other information or concerns documented in this encounter Plan of Treatment Upcoming Encounters Date Type Specialty Care Team Description 11/11/2021 Office Visit Nephrology Jonn Zuniga MD [facility] NEPHROLOGY DEPT [place], [place] [address] (Wo rk) documented as of this encounter Visit Diagnoses Not on filedocumented in this encounter Care Teams Supervisor Inventory Merchandising Relationship Specialty Start Date End Date Es Clinton PA PCP - General Family Medicine 08/09/17 10/09/19 [address] [place] [address] documented as of this encounter
--- OUTSIDE RECORDS SUMMARY | 2021-10-28 14:11 | XMS_ITS | Encounter Summary ---
:1955 Author Organization [facility] Address [facility] [address] [place] [address] Care Team Providers Name Role Phone Es Clinton Primary Care Provider Reason for Visit Reason Onset Date Comments Follow-up 05/09/2019 Encounter Details Date Type Department Care Team Description 05/09/2019 Telephone Pulmonology at [facility] Robert, Follow-up [facility] [place] [address] Social History Tobacco Use Types Packs/Day [...] this encounter Miscellaneous Notes Telephone Encounter - Lane Jones RN - 05/09/2019 8:48 AM EDT Rec'd request from Dr. Palacios to phone assess patient for stability. Called patient on home number. RN was able to talk to Jessica, patient's . In discussion, she was under the impression that the appointment for 05/09/2019 had already been cancelled through robo-call earlier. Rescheduled patient for 07/03/2019 @ 0800 with PFTs prior, per Jessica. It was reinforced that if the patient worsened, or the public health concerns with Novel Covid-19 alleviates, that rescheduling sooner could be available. documented in this encounter Plan of Treatment Upcoming Encounters Date Type Specialty Care Team Description 11/11/2021 Office Visit Nephrology Jonn Zuniga MD [facility] ER NEPHROLOGY DEPT [place], [place] [address] (Wo rk) documented as of this encounter Visit Diagnoses Not on filedocumented in this encounter Care Teams Underground Mine Superintendent Relationship Specialty Start Date End Date Es Clinton PA PCP - General Family Medicine 08/09/17 10/09/19 [address] [place] [address] documented as of this encounter
--- OUTSIDE RECORDS SUMMARY | 2021-10-28 14:11 | XMS_ITS | Encounter Summary ---
:1955 Author Organization [facility] [place] [address] Care Team Providers Name Role Phone Es Clinton Primary Care Provider Encounter Details Date Type Department Care Team Description 08/30/2019 Telephone Pulmonology at [facility] [place] [address] Social History Tobacco Use Types Packs/Day [...] this encounter Miscellaneous Notes Telephone Encounter - Amy Varela LNA - 08/30/2019 8:44 AM EDT LM for pt again re appts on 09/02, PFT and Dr. Cole. We are cancelling the appts and asked for the ptto call us back to reschedule. documented in this encounter Plan of Treatment Upcoming Encounters Date Type Specialty Care Team Description 11/11/2021 Office Visit Nephrology Jonn Zuniga MD [facility] ER NEPHROLOGY DEPT [place], [place] [address] (Wo rk) documented as of this encounter Visit Diagnoses Not on filedocumented in this encounter Care Teams Meat And Seafood Manager Relationship Specialty Start Date End Date Es Clinton PA PCP - General Family Medicine 08/09/17 10/09/19 [address] [place] [address] documented as of this encounter
--- OUTSIDE RECORDS SUMMARY | 2021-10-28 14:11 | XMS_ITS | Encounter Summary ---
:1955 Author Organization [facility] [place] [address] Care Team Providers Name Role Phone Es Clinton Primary Care Provider Reason for Visit Reason Comments Atrial Fibrillation Coronary Artery Disease Shortness of Breath Encounter Details Date Type Department Care Team Description 10/05/2019 TH Visit Cardiology at [facility] Shalom Grant, Coronary artery disease, ang solis presence unspecified, unspecified vessel or lesion type, unspecified whether [place] or transplanted heart; (TeleHealth) [facility] NORBERTO Paroxysmal atrial fibrillation; [facility] Dyspnea, unspecified type [place], [place] [address] [address] [place] [address] [phone] Social History Tobacco Use Types Packs/Day Years [...] on file documented as of this encounter Progress Notes Shalom Grant PA - 10/05/2019 9:40 AM EDT [facility] Interventional Cardiology CARDIOLOGY TELE VISIT NOTE 10/05/19 Patient: Cristian Miner Prior to the initiation of our discussion, the risks and benefits of tele health visits were discussed, and the patient consented verbally to this being a virtual telehealth visit in lieu of an in person office visit. CC: dyspnea. Follow up for dyspnea and other cardiovascular concerns as detailed below. Problem List: CAD: remote AL, CABG 2018 (SVG-OM, SVG-rPDA) with MV repair Dyspnea A fib Obesity MICHELLE uses CPAP MR: s/p MV repair at time of CABG 2018 A fib, post operative 2018 onset, paroxysmal. On [facility] 2018 Patient Active Problem List Diagnosis Code ??? CAD (coronary artery disease) I25.10 ??? Morbid obesity E66.01 ??? Atrial fibrillation I48.91 ??? MICHELLE (obstructive sleep apnea) G47.33 ??? SOB (shortness of breath) R06.02 ??? Palpitations R00.2 ??? Mitral regurgitation I34.0 HPI: Cristian Miner is a 63 y.o. year old male who is interviewed via telephone during current covCint restrictions as requested to follow up for his recurrent dyspnea. ?? His past medical history is notable for paroxysms of atrial fibrillation with a history of RVR whichbegan samara-operatively dating back to his 2018 mitral valve repair and concomitant CABG surgery. Also history of obesity, MICHELLE, hypertension. He underwent cardioversion and was started on apixaban. I last met the patient in 03/2019, at which point we ordered PFT tests and consult with pulmonology. he had a normal chest x ray showing no acute cardiopulmonary process. He also underwent a pharmacological stress test with echo which did not show any evidence of ischemia at a submaximal level of stress (near target HR, but not diagnostic). His furosemide was increased for symptomatic control. He tells me his breathing has improved since increasing lasix dosing. He walked up a flight of stairs today without stopping and without dyspnea. He has no chest pain, pressure or palpitations. No syncope or lightheadedness. No orthopnea reported. No fevers chills or recent illness. No cough. He has an albuterol inhaler which he uses most days. He is using CPAP machine at night which has helped his breathing. ?? He started weight watchers recently. He is down 10 pounds. this has been stable. He continues on eliquis for stroke prevention; he denies any bleeding trouble or hematuria. ?? He reports very mild but improved peripheral edema to bilateral ankles which is worse in AM and improves at night. He has worn compression stockings sometimes. His increase in lasix has improved. No bleeding issues. Ex smoker. ??+CAD ?? Cards meds: Furosemide 40mg daily Metop 50 BID amio 100 apixaban Asa 81 atorva 40 Brief ROS: Activity level: baseline. SOB with exertion No new orthopnea, PND, +LE edema. No lightheadedness, dizziness, syncope/pre- syncope. No new CP. Medications: Current Outpatient Medications Medication Sig Dispense Refill ??? buPROPion SR (WELLBUTRIN SR) 150 mg tablet sustained-release 12 hr 150 mg daily. ??? furosemide (LASIX) 20 mg Tablet 40 mg daily. 1-2 tablets ??? docusate sodium (COLACE) 100 mg Capsule [...] hr Take 0.4 mg by mouth daily. Medications were reviewed with patient. Objective Data: VS at home: none Weight Today: has lost 10 pounds intentionally with exercise. Labs: Lab Results Component Value Date WBC 9.3 10/11/2017 HGB 12.2 (L) 10/11/2017 HCT 36.8 (L) 10/11/2017 MCV 89.1 10/11/2017 PLATELET 141 (L) 10/11/2017 No results for input(s): NA, K, CL, CO2, BUN, CREATININE, GLUCOSE in the last 168 hours. Lab Results Component Value Date INR 2.5 10/18/2017 PFTs FEV1 is normal. ??FVC is normal. ??The FEV1/FVC ratio is normal. diffusion capacity was normal. Resting oxyhemoglobin saturation was normal. Impression: Normal pulmonary function testing. ?? STRESS ECHO DSE SUMMARY: ?? 1. Dobutamine stress echo is [...] (trigeminy). 6. Other details as noted below. ?? Chest Xray 03/13/2019 FINDINGS: The lungs are well-inflated. There is no pneumothorax, pleural fluid or focal consolidation. There has been prior median sternotomy with MVR and CABG. The cardiomediastinal silhouette is unchanged. There is no acute osseous abnormality. ?? IMPRESSION No acute cardiopulmonary process is identified. ?? Assessment: Cristian Miner is a 63 y.o. male with a history of coronary disease, paroxysmal atrial fibrillation, obstructive sleep apnea and recurrent dyspnea who presents in follow up. His symptoms have improved following increased dosing of lasix coupled with more activity and nearly 10 pounds weight loss. He is he modynamically stable and asymptomatic. ?? His coronary disease is stable. He had a recent stress echo which was negative for ischemia at that threshold (did barely miss the target HR). He has no chest pain, CCS class 0. He is on appropriate medical therapy which we will continue. ?? A fib, perioperative, paroxysmal. None seen on zio last year. On amio 100mg daily and metoprolol forrate control. No signs/symptoms of stroke. No bleeding issues. No symptoms. Continue current management. I think that his dyspnea is multifactorial and mostly related to his obesity and deconditioning. We talked at length about options to mitigate his cardiovascular risk and reduce his symptoms by exercising more, eating well and other lifestyle changes. He is agreeable to all of this, and will work on more activity as he is feeling better. He has a component of mild chronic diastolic heart failure witha dilated ventricle and he is on medical therapy. He has responded to increased oral diuretics. Kidney functions due to be checked within the next 6 months. He has no acute cardiopulmonary issues now as he has a stress test negative for ischemia, normal chest x ray. We are encouraged by these results.He will still follow with pulmonology to see if there are more appropriate medications or diagnostictests that should be completed. CV issues are currently stable. Plan 1. Increase lasix to 60mg once daily. 2. Lab tests: CMP + CBC 3. Follow up 4 weeks / phone call tele health 4. Increase walking. F/U 4 weeks tele visit call NORBERTO Collier Time spent: [id number] 0-5min [id number] 6-10min [id number] 11-15min x [id number] 16-20min [id number] 21-30min [id number] 31-40min [id number] 40+ min Shalom Grant PA-C Interventional Cardiology [facility] Pager [phone] documented in this encounter Plan of Treatment Upcoming Encounters Date Type Specialty Care Team Description 11/11/2021 Office Visit Nephrology Jonn Zuniga MD [facility] NEPHROLOGY [place], [place] [address] (Wo rk) documented as of this encounter Visit Diagnoses Diagnosis Coronary artery disease, angina presence unspecified, unspecified vessel or lesion type, unspecified whether [place] or verde splanted heart Paroxysmal atrial fibrillation Atrial fibrillation Dyspnea, unspecified type documented in this encounter Care Teams Photo Mask Inspector Relationship Specialty Start Date End Date Es Clinton PA PCP - General Family Medicine 08/09/17 10/09/19 [address] [place] [address] documented as of this encounter
--- OUTSIDE RECORDS SUMMARY | 2021-10-28 14:11 | XMS_ITS | Encounter Summary ---
:1955 Author Organization [facility] [place] [address] Care Team Providers Name Role Phone Es Clinton Primary Care Provider Encounter Details Date Type Department Care Team Description 09/25/2019 Telephone Pulmonology at [facility] Gina Madrigal, [place] [address] Social History Tobacco Use Types Packs/Day [...] Miscellaneous Notes Telephone Encounter - Gina Madrigal, [facility] - 09/25/2019 3:41 PM EDT GAP Data Management Analyst Pre-Telemedicine Phone Note [] Patient not reached [x] Patient reached and the following information was reviewed/obtained per protocol: [x] Confirmed patient name and date of [] Confirmed telemedicine oniel (Vidyo and Virtual Visit) is downloaded and functioning [] Confirmed location of patient - TeleVisit is taking place in [] [place] [] [place] [] If not on [facility], working on signing up for [facility] [] Confirmed has completed any pre-visit questionnaires [] If has not received required pre-visit questionnaires, send via [facility] [x] Reviewed patient medications ??? buPROPion SR [...] hr [x] Documented self-reported vitals: [x] Weight: 300lbs (approx) [x] Height 5'7 [] pulse recorded: [x] Other information or concerns Patient would like to have a telephone visit instead of a teleheath. And would prefer to be called at his cell phone number. documented in this encounter Plan of Treatment Upcoming Encounters Date Type Specialty Care Team Description 11/11/2021 Office Visit Nephrology Jonn Zuniga MD [facility] NEPHROLOGY DEPT [place], [place] [address] (Wo rk) documented as of this encounter Visit Diagnoses Not on filedocumented in this encounter Care Teams Skid Worker Relationship Specialty Start Date End Date Es Clinton PA PCP - General Family Medicine 08/09/17 10/09/19 [address] [place] [address] documented as of this encounter
--- OUTSIDE RECORDS SUMMARY | 2021-10-28 14:11 | XMS_ITS | Encounter Summary ---
:1955 Author Organization [facility] Address [address] [facility] [place] [address] Care Team Providers Name Role Phone Es Clinton Primary Care Provider Reason for Visit Reason Comments Atrial Fibrillation Coronary Artery Disease Hypertension Encounter Details Date Type Department Care Team Description 10/31/2018 Office Visit Cardiology at [facility] Shalom Grant, Coronary artery disease, ang solis presence unspecified, unspecified vessel or lesion type, unspecified whether [place] or transplanted heart; [facility] Paroxysmal atrial fibrillation; [facility] MICHELLE (obstructive sleep apnea ); [place], [place] [address] Palpitations; [id number] [place] [address] SOB (shortness of breath); [phone] Non-rheumatic m itral regurgitation (Work) Social History Tobacco Use Types Packs/Day [...] Sign Reading Time Taken Comments Blood Pressure 116/68 10/31/2018 1:08 PM EDT Pulse 69 10/31/2018 1:08 PM EDT Temperature - - Respiratory Rate - - Oxygen Saturation 96% 10/31/2018 1:08 PM EDT Inhaled Oxygen Concentration - - Weight 141.1 kg (311 lb) 10/31/2018 1:08 PM EDT Height 175.3 cm (5' 9.02) 10/31/2018 1:08 PM EDT Body Mass Index 45.91 10/31/2018 1:08 PM EDT documented in this encounter Progress Notes Shalom Grant PA - 10/31/2018 1:00 PM EDT [facility] Interventional Cardiology Reason for Visit: follow up for A fib, coronary artery disease Primary provider: NORBERTO Cage [address] [place] [address] ?? Problem List: CAD - remote [place], CABG 2018 with MV repair (SCG-OM, SVG-rPDA) MR - 30mm Phsyio ring 2018, no significant valve disease on recent echo A fib, post-op, paroxysmal. On eliquis. DC Cardioverted 2018 Morbid obesity MICHELLE Patient Active Problem List Diagnosis ??? Morbid [...] with a past medical history as above and notable for paroxysms ofatrial fibrillation with a history of RVR, obesity, MICHELLE, coronary artery disease s/p 2 vein grafts concomitantly with MV repair with 30mm ring for severe mitral regurgitation, who presents for follow up for atrial fibrillation and general cardiovascular risk management. He previously has followed withDr Brewster and with the electrophysiology team. Last seen 07/2018 at which point amiodarone was reduced and eliquis was started in favor of Warfarin. He lives in [place], [place], and his is with him today. Since last visit, he has started an anti-depression medicine provided by his PCP team. He has been taking it for 2 weeks now. He thinks it is helping is mood. Since last seen, he is taking his medications as prescribed. He reports no chest pain, no a fib in several months, HR feels well controlled. He denies any palpitations or sensations around his chest.No discomfort in chest with his exertion, no palpitations, no lightheadedness, no syncope or near syncope. He is not very active, but he has been feeling well. 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 In the winter he tends to work out more frequently. He has not been walking regularly and thinks he may have gained a few pounds. He has had no trouble with breathing and denies dyspnea. He continues with morbid obesity. He is trying to lose weight but is busy at work and has not exercised. 6 pound weight gain this year. He notes mild peripheral edema. He denies any shortness of breath, wheezing. His BP at home per his report are well controlled with repeated results in the 110s systolic. Former tobacco smoker. Previous IN many years ago, with known CAD. HTN. Card meds: Metop tartrate 50mg BID Amio 100mg daily Eliquis BID Furosemide 40mg daily Asa 81 atorva 40mg ALLERGIES: No Known Allergies ?? MEDICATIONS: ?? [...] weight loss, fever, chills, weakness or fatigue. ??He does report small increase in weight since last visit. HEENT: Eyes: No visual loss, blurred vision, [...] Constitutional: In general, alert and oriented X 3, obese male. No acute distress. Easily ambulates around the exam room. Vitals Office Visit from 08/10/2018 in Cardiology at [facility] Weight 136.1 kg (300 lb) Height 175.3 cm (5' 9.02) BSA (Calculated - sq m) 2.57 sq meters BMI (Calculated) 44.28 Heart Rate 78 BP 122/76 SpO2 95 % Systolic 116 on repeat. (mmHg). Eyes: No scleral icterus or pale conjunctiva; no corneal arcus Ears, Nose, mouth, throat: No sinus tenderness; moist oral mucosa; no epistaxis; no visible thyromegaly Respiratory: Clear to auscultation bilaterally with good air entry bilaterally. No wheezing no ralesno rhonchi noted on ausculation. GI: No abdominal pain; + bowel sounds; no rigidity or guarding Cardiovascular: The heart rate is regular. S1 and S2 are normal and distant. There are no audible murmurs. Carotid upstroke is normal with no audible carotid bruits. Carotid and peripheral pulses intact bilaterally. No elevation of JVP at seated position, albeit obese neck. MSK: No joint deformity; No evidence of tendon xanthomas Skin: No visible rashes or bruises Neuro: Non-focal. Moves all extremities without limitation. CN nerves not examined. Psych: Mood appropriate Extremity: RLE: mild LE edema LLE: No LE edema RUE: 2+ radial pulse LUE: 2+ radial pulse ?? A/P: Cristian Miner is a 62 y.o. male who is seen in clinic to discuss management of his atrial fibrillation, stable ischemic coronary artery disease, and other cardiovascular risk factors. Some component of diastolic heart failure with preserved EF. Asymptomatic. He has no JVP elevation and minimal pedal edema at present. He will continue with compression stockings and meds as prescribed. A fib: paroxysmal. No symptomatic episodes. HR well controlled. Rhythm has been controlled, per patient's lack of symptoms. No recent zio/monitoring. Appropriately anticoagulated on eliquis with CHADSVASC 3 or greater. HTN: well controlled at present. Continue current medications. Morbid Obesity: we spent many minutes reviewing his diet and discussing appropriate heart healthy diets. We talked about ways to find more time to exercise. He is quite busy at work, and will likely find more time once the weather turns cold to be more active. We reviewed the importance of weight loss in terms of optimizing his generalized risk. He has no recent lipid profile on record. Continue current medications. He states his routine lab work is completed by his PCP. He is due for lipid profile. Recommended annual metabolic profile and kidney function tests, as well as amiodarone monitoring to include liver function and thyroid studies (TSH). Certainly should he become symptomatic with episodes of palpitations, I would consider a repeat Zio,and plan to see EP. We could increase amiodarone as well if needed in the interim. Recommendations: 1: continue current medications 2: follow up in 6 months 3: if symptoms develop, go to ED or make office visit promptly NORBERTO Collier 10/31/2018 1:06 PM [facility] Pager [phone] documented in this encounter Plan of Treatment Upcoming Encounters Date Type Specialty Care Team Description 11/11/2021 Office Visit Nephrology Jonn Zuniga MD [facility] NEPHROLOGY [place], [place] [address] (Wo rk) documented as of this encounter Visit Diagnoses Diagnosis Coronary artery disease, angina presence unspecified, unspecified vessel or lesion type, unspecified whether [place] or [place] splanted heart Paroxysmal atrial fibrillation Atrial fibrillation MICHELLE (obstructive sleep apnea) Obstructive sleep apnea (adult) (pediatr ic) Palpitations SOB (shortness of breath) Shortness of breath Non-rheumatic mitral regurgitation Mitral valve disorders documented in this encounter Care Teams Biofuels Plant Superintendent Relationship Specialty Start Date End Date Es Clinton PA PCP - General Family Medicine 08/09/17 10/09/19 [address] [place] [address] documented as of this encounter
--- OUTSIDE RECORDS SUMMARY | 2021-10-28 14:11 | XMS_ITS | Encounter Summary ---
:1955 Author Organization [facility] [place] [address] Care Team Providers Name Role Phone Es Clinton Primary Care Provider Encounter Details Date Type Department Care Team Description 08/28/2019 Telephone Pulmonology at [facility] [place] [address] Social History Tobacco Use Types Packs/Day [...] Telephone Encounter - Amy Varela LNA - 08/28/2019 10:19 AM EDT LM for pt to call us back re appts on 09/02, PFT and Dr. Cole. Cancelled PFT and offered telehealth appt with Dr. Cole. documented in this encounter Plan of Treatment Upcoming Encounters Date Type Specialty Care Team Description 11/11/2021 Office Visit Nephrology Jonn Zuniga MD [facility] NEPHROLOGY [place], [place] [address] (Wo rk) documented as of this encounter Visit Diagnoses Not on filedocumented in this encounter Care Teams Environmental Manager Relationship Specialty Start Date End Date Es Clinton PA PCP - General Family Medicine 08/09/17 10/09/19 [address] [place] [address] documented as of this encounter
--- OUTSIDE RECORDS SUMMARY | 2021-10-28 14:11 | XMS_ITS | Encounter Summary ---
:1955 Author Organization [facility] Address [facility] [place] [address] Care Team Providers Name Role Phone Es Clinton Primary Care Provider Encounter Details Date Type Department Care Team Description 09/17/2019 Hospital Encounter Pulmonology at [facility] [place] Coronary artery [facility] disease, angina Drive presence unspecified, [place] [address] unspecified vessel or [phone] lesion type, unspecified whe ther [place]agan [place] or trans planted heart Social History Tobacco Use Types Packs/Day Years [...] needed for Wheezing. Use with spacer furosemide (LASIX) 20 mg 40 mg daily. 1-2 0 02/1610/15/2019 Tablet tablets atorvastatin (LIPITOR) 40 Take 40 mg by mouth 0 03/10/2021 mg Tablet daily. documented as of this encounter Procedure Notes Wanda Zhang MD - 09/17/2019 11:59 PM EDTAssociated Order(s): PULMONARY FUNCTION TEST Pulmonary Function Test Interpretation FEV1 is normal. FVC is normal. The FEV1/FVC ratio is normal. diffusion capacity was normal. Resting oxyhemoglobin saturation was normal. Impression: Normal pulmonary function testing. Wanda Zhang MD documented in this encounter Plan of Treatment Upcoming Encounters Date Type Specialty Care Team Description 11/11/2021 Office Visit Nephrology Jonn Zuniga MD [facility] NEPHROLOG[facility] DEPT [place] [address] (Wo rk) documented as of this encounter Procedures Procedure Name Priority Date/Time Associated Diagnosis Comme nts PULMONARY FUNCTION Routine 09/17/2019 11:59 Coronary artery Re sults for this TEST PM EDT disease, angina procedure ar e in presence unspecified, the re sults unspecified vessel or sectio n. lesion type, unspecified whether [place] or transplanted heart documented in this encounter Results Pulmonary Function Testing (09/17/2019 [...] unspecified vessel or lesion type, unspecified whether [place] or verde splanted heart documented in this encounter Care Teams Hotel Operations Manager Relationship Specialty Start Date End Date Es Clinton PA PCP - General Family Medicine 08/09/17 10/09/19 [address] [place] [address] documented as of this encounter
--- OUTSIDE RECORDS SUMMARY | 2021-10-28 14:11 | XMS_ITS | Encounter Summary ---
:1955 Author Organization [facility] [place] [address] Care Team Providers Name Role Phone Es Clinton Primary Care Provider Reason for Visit Reason Comments Follow-up Encounter Details Date Type Department Care Team Description 11/17/2017 Office Visit Cardiac Surgery at TiwariJuan Alberto S/Evelyne vital itral valve [facility] [place] Naomy repair [facility] [address] [place]AC[place] [id number] SURGERY [phone] [place], [place] [address] Social History Tobacco Use Types Packs/Day Years [...] Sign Reading Time Taken Comments Blood Pressure 120/70 11/17/2017 2:34 PM EDT Pulse 72 11/17/2017 2:34 PM EDT Temperature - - Respiratory Rate - - Oxygen Saturation 96% 11/17/2017 2:34 PM EDT Inhaled Oxygen Concentration - - Weight 128.8 kg (284 lb) 11/17/2017 2:34 PM EDT Height 175.3 cm (5' 9) 11/17/2017 2:34 PM EDT Body Mass Index 41.94 11/17/2017 2:34 PM EDT documented in this encounter Progress Notes Juan Alberto Tiwari MD - 11/17/2017 3:00 PM EDT To: NORBERTO Piña MD ?? Re: Cristian Miner ( 1955) ?? Dear Es and Doris, We had an opportunity to see Mr. Miner today as a follow-up visit from his mitral valve repair and two-vessel bypass grafting. He presents ambulatory to the office looks and states that he feels well, his postoperative chest x-ray is clear, his postoperative echo is unremarkable. This echo shows unchanged ventricular systolic function at about 45%, with trace residual MR. He specifically denies effortdyspnea or angina and remarks that his exercise capacity is improving. On examination he is a blood pressure 120/70, his heart rates in the 70s. His midline sternal wound is healed well the underlying sternum is firm to palpation there is no click. There is no apical murmur. In summary, Mr. Miner has recovered nicely following his bypass operation and mitral valve repair. Weare going to discharge him from our service at this time and leave him in your care. In the interim should you require anything further please do not hesitate to contact my office. Best personal regards, documented in this encounter Plan of Treatment Upcoming Encounters Date Type Specialty Care Team Description 11/11/2021 Office Visit Nephrology Jonn Zuniga MD [facility] NEPHROLOGY [place], [place] [address] (Wo rk) documented as of this encounter Visit Diagnoses Diagnosis S/P mitral valve repair Other postprocedural status documented in this encounter Care Teams Grinder Operator Surface Tool Relationship Specialty Start Date End Date Es Clinton PA PCP - General Family Medicine 08/09/17 10/09/19 [address] [place] [address] documented as of this encounter
--- OUTSIDE RECORDS SUMMARY | 2021-10-28 14:11 | XMS_ITS | Encounter Summary ---
:1955 Author Organization [facility] [address] Care Team Providers Name Role Phone Es Clinton Primary Care Provider Encounter Details Date Type Department Care Team Description 08/08/2019 Telephone Cardiology at [facility] [place] [phone] Social History Tobacco Use Types Packs/Day [...] this encounter Miscellaneous Notes Telephone Encounter - Mia Quiroz RN - 08/23/2019 11:02 AM EDT Call placed to patient, no answer, left message. Mia Quiroz liturgical music director Team Nurse [facility] Ambulatory Cardiology Telephone Encounter - Mia Quiroz RN - 08/08/2019 1:53 PM EDT Received VM from , mariusz grier, communicated that patient went to dentist and is able tohave top teeth removed without an oral surgeon. Dentist, Dr. Vadim Garcia, is requesting a note about what medications to take. Will route message to provider for expert knowledge and direction. Mia Quiroz liturgical music director Team Nurse [facility] Ambulatory Cardiology documented in this encounter Plan of Treatment Upcoming Encounters Date Type Specialty Care Team Description 11/11/2021 Office Visit Nephrology Jonn Zuniga MD [facility] NEPHROLOGY DEPT [place], [place] [address] (Wo rk) documented as of this encounter Visit Diagnoses Not on filedocumented in this encounter Care Teams Pointing Machine Operator Relationship Specialty Start Date End Date Es Clinton PA PCP - General Family Medicine 08/09/17 10/09/19 [address] [place] [address] documented as of this encounter
--- OUTSIDE RECORDS SUMMARY | 2021-10-28 14:11 | XMS_ITS | Encounter Summary ---
:1955 Author Organization [facility] [place] [address] Care Team Providers Name Role Phone Es Clinton Primary Care Provider Encounter Details Date Type Department Care Team Description 11/30/2019 Orders Only Pulmonology at [facility] Omer Mota, Pulmonary hypertension; [facility] Chronic [place] [phone] Pulmonary Medici [place], [place] [address] Social History Tobacco Use Types [...] 11/11/2021 Office Visit Nephrology Jonn Zuniga MD [facility] NEPHROLOGY DEPT [place], [place] [address] (Wo rk) documented as of this encounter Visit Diagnoses Diagnosis Pulmonary hypertension Other chronic pulmonary heart diseases Chronic diastolic heart failure documented in this encounter Care Teams Forest Technology Professor Relationship Specialty Start Date End Date Es Clinton PA PCP - General Family Medicine 11/27/19 [address] [place] [address] documented as of this encounter
--- OUTSIDE RECORDS SUMMARY | 2021-10-28 14:11 | XMS_ITS | Encounter Summary ---
:1955 Author Organization [facility] [place] [address] Care Team Providers Name Role Phone Es Clinton Primary Care Provider Reason for Referral Diagnostic Test (Routine) - Closed Specialty Diagnoses / Procedures Referred By Contact Refer red To Contact Diagnoses Coronary artery disease, angina presence unspecified, unspecified vessel or lesion type, unspecified whether chefornak or transplanted heart MICHELLE (obstructive sleep apnea) Palpitations SOB (shortness of breath) Ash Smith PA [facility] Procedures Echo pharm stress test (DSE) [place] [address] Drive [place] [phone] Phone: Fax: Referral ID Status Reason Start Date Expiration Date Visits V isits Requested Authorized [id number] Closed Specialty 03/06/2019 06/04/2019 1 1 Service Requested Consultation (Routine) - Closed Specialty Diagnoses / Procedures Referred By Contact Refer red To Contact Pulmonology Diagnoses Coronary artery disease, angina presence unspecified, unspecified vessel or lesion type, unspecified whether chefornak or transplanted heart MICHELLE (obstructive sleep apnea) SOB (shortness of breath) Ash Smith PA [facility] Pulmonology [address] [facility] [place] [address] [place] [address] Fax: Referral ID Status Reason Start Date Expiration Date Visits V isits Requested Authorized [id number] Closed Consult, 03/06/2019 03/05/2020 1 1 Test & Treat Reason for Visit Reason Comments Coronary Artery Disease Shortness of Breath Hypertension Encounter Details Date Type Department Care Team Description 03/06/2019 Office Visit Cardiology at [facility] Ash Smith, Paroxysmal atrial fibrillati on; [facility] NORBERTO Coronary artery disease, angina presence unspecified, unspecified vessel or lesion type, unspecified whether chefornak or transplanted heart; Drive [facility] Nonrheumatic mitral valve re gurgitation; [place], [place] MICHELLE (obstructive sleep apnea); [id number] [place] [address] Palpitations; [phone] SOB (shortness of breath) (Work) Social History [...] Sign Reading Time Taken Comments Blood Pressure 120/80 03/06/2019 3:05 PM EST Pulse 65 03/06/2019 3:05 PM EST Temperature - - Respiratory Rate - - Oxygen Saturation 94% 03/06/2019 3:05 PM EST Inhaled Oxygen Concentration - - Weight 142.4 kg (314 lb) 03/06/2019 3:05 PM EST Height 175.3 cm (5' 9.02) 03/06/2019 3:05 PM EST Body Mass Index 46.35 03/06/2019 3:05 PM EST documented in this encounter Progress Notes Ash Smith PA - 03/06/2019 3:00 PM EST Images from the original note were not included. [facility] Interventional Cardiology Reason for Visit: follow up for coronary artery disease, atrial fibrillation management, and other cardiovascular concerns as detailed below Primary provider: NORBERTO Cage [address] [place] [address] ?? Problem List: CAD: remote SD, CABG 2018 with MV repair (SVG-OM, SVG-rPDA) MR - 30mm physio ring 2018, no valve disease on last TTE A fib, post op, paroxysmal. On eliquis. DCCV 2018 post op MICHELLE Obesity Patient Active Problem List Diagnosis ??? Morbid [...] in 1980s HPI: Cristian Miner is a 63 y.o. male who presents to cardiology clinic to discuss his recurrent dyspnea and management of his chronic cardiovascular issues. His past medical history is notable for paroxysms of atrial fibrillation with a history of RVR whichmanifest samara-operatively dating back to his 2018 surgical mitral valve repair and CABG, obesity, MICHELLE. He previously followed with Dr Brewster, and I met him 6 months ago at which point his symptoms were stable. He had recently switched to eliquis instead of coumadin, and had decreased amiodarone. He also recently started some anti-depressant type medications (wellbutrin) provided by his PCP. At present, he tells me he has continued dyspnea with exertion. No dyspnea at rest. NYHA class III symptoms. GREENBERG at one flight of stairs, no associated symptoms. No chest pain, pressure, palpitations, syncope, cough, or diaphoresis. Following his surgery, he was feeling better with improved breathing and no chest pain. No chest pain, pressure or palpitations. Recent ZioPatch shows no a fib. Regular sinus rhythm, no atrial fibrillation, and rare episodes of short SVT. Has been challenging to lose weight because he cannot move much to exercise due to breathing trouble. No discomfort in chest with his exertion, no palpitations, no lightheadedness, no syncope or near syncope. He is not very active, but he has been feeling well. 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 In the winter he tends to work out more frequently. He has not been walking regularly and thinks he may have gained a few pounds. Denies fevers, recent illness. He does endorse a dry cough. Ex smoker. +CAD Cards meds: Furosemide 20mg daily Metop 50 BID amio 100 apixaban Asa 81 atorva 40 ALLERGIES: No Known Allergies ?? MEDICATIONS: ?? Current Outpatient Medications: ??? furosemide (LASIX) 20 mg Tablet, 20 mg daily. 1-2 tablets, Disp: , Rfl: ??? metoprolol tartrate (LOPRESSOR) [...] mouth 2 times daily., Disp: , Rfl: ?? ROS: CONSTITUTIONAL: No weight loss, fever, chills, weakness or fatigue. ?? HEENT: Eyes: No visual loss, blurred vision, double vision or scleral iscterus. No sinus tenderness or palpable thyromegaly. SKIN: No rashes. ?? CARDIOVASCULAR: No chest pain, chest pressure or chest discomfort. No palpitations + ankle edema . No orthopnea or PND. No syncope RESPIRATORY: +SOB on exertion, no cough or sputum. No hemoptysis GASTROINTESTINAL: [...] general, alert and oriented X 3 obese male. No acute distress. No acuterespiratory difficulties as he is able to ambulate throughout the exam room and relay the details ofhis medical care without limitations. Vitals Office Visit from 03/06/2019 in Cardiology at [facility] Weight (!) 142.4 kg (314 lb) Height 175.3 cm (5' 9.02) BSA (Calculated - sq m) 2.63 sq meters BMI (Calculated) 46.34 Heart Rate 65 BP 120/80 SpO2 94 % Eyes: No scleral icterus [...] not examined. Psych: Mood appropriate Extremity: RLE: +1 edema LLE: +1/2 edema RUE: 2+ radial pulse LUE: 2+ radial pulse ?? DIAGNOSTIC TESTS: ?? EmanueloPatch 12/22/2018 A/P: Cristian Miner is a 63 y.o. male seen in clinic to discuss management of his cardiovascular conditions and to work up his ongoing dyspnea. This has not resolved and cardiopulmonary causes have not been excluded. He has not had had signs/symptoms of acute infectious process, illness or fevers. This dyspnea could certainly represent an anginal equivalent. He has not seen a pulmonology team recently. ??Some component of diastolic heart failure with preserved EF. Asymptomatic. He has no JVP elevationand mild pedal edema at present. He will continue with compression stockings and meds are increased. His a fib is paroxysmal with no symptomatic episodes and rate controlled. Rhythm controlled. Recent zio reaffirming. Appropriately anticoagulated on eliquis with CHAdsVasc 3. His HTN is well controlled at present. Morbid Obesity: we spent many minutes reviewing [...] has no recent lipid profile on record. He states his routine lab work is completed by his PCP. He is due for lipid profile. Recommended annual metabolic profile and kidney function tests, as well as amiodarone monitoring to include liver function and thyroid studies (TSH). . ??CXR DSE/echo. Hold BB 24 hours prior. His atrial fibrillation history is samara- operative, and none was seen on recent ZioPatch. Double furosemide to 40mg daily. Referral pulmonology Follow up 5 weeks; will communicate DSE results as soon as available. Recommendations: 1: DSE, CXR 2: follow up after those studies 3: increase furosemide 40mg daily NORBERTO Collier 03/06/2019 3:20 PM [facility] Pager [phone] documented in this encounter Plan of Treatment Upcoming Encounters Date Type Specialty Care Team Description 11/11/2021 Office Visit Nephrology Jonn Zuniga MD [facility] [address] NEPHROLOGY DEPT [place] [phone] (Wo rk) Scheduled Referrals Name Type Priority Associated Diagnoses Order S chedule Referral to Outpatient Referral Routine Coronary artery Order ed: Pulmonology disease, angina 03/06/2019 presence unspecified, unspecified vessel or lesion type, unspecified whether chefornak or transplanted hea rt MICHELLE (obstructive sleep apnea) SOB (shortness of breath) documented as of this encounter Procedures Procedure Name Priority Date/Time Associated Diagnosis Comme nts EKG 12-LEAD Routine 03/06/2019 3:16 PM Paroxysmal atrial Resu lts for this EST fibrillation procedure are in Coronary artery the results disease, angina section. presence unspecified, unspecified vessel or lesion type, unspecified whether chefor[place] or transplanted heart Nonrheumatic mitral valve regurgitat ion MICHELLE (obstructive sleep apnea) Palpitations SOB (shortness of breath) documented in this encounter Results XR Chest PA & Lateral (Generic) (03/13/2019 10:07 AM EST) Anatomical Region Laterality Modality Chest N/A Digital Radiography Specimen (Source) Anatomical Location Collection Method / Collectio n Time Received Time / Laterality Volume Impressions 03/13/2019 12:20 PM EST No acute cardiopulmonary process is identified. Thank you for letting us participate in the care of this patient. For questions regarding this report, please contact e number below. ? Narrative 03/13/2019 12:20 PM EST EXAMINATION: XR CHEST PA AND LATERAL (GENERIC) CLINICAL HISTORY: dyspnea. s/p CABG and MVR TECHNIQUE: PA and lateral views of the chest COMPARISON: 11/17/2017 FINDINGS: The lungs are well-inflated. There is no pneumothorax, pleural fluid or focal consolidation. There has been prior medi an sternotomy with MVR and CABG. The cardiomediastinal silhouette is unchange d. There is no acute osseous abnormality. Procedure Note Katilyn Gamino MD - 03/13/2019Formatt ing of this note might be different from the original. EXAMINATION: XR CHEST PA AND LATERAL (GE NERIC) CLINICAL HISTORY: dyspnea. s/p CABG and MVR TECHNIQUE: PA and lateral views of the chest COMPARISON: 11/17/2017 FINDINGS: The lungs are well-inflated. There is no pneumothorax, pleural fluid or focal consolidation. There has been prior medi an sternotomy with MVR and CABG. The cardiomediastinal silhouette is unchange d. There is no acute osseous abnormality. IMPRESSION No acute cardiopulmonary process is iden tified. Thank you for letting us participate in the care of this patient. For questions regarding this report, please contact e number below. Az Cowart MD IMG DX ORDERABLES STRESS ECHOCARDIOGRAM W CONTRAST LMTD SPEC DOPP,COLOR DOPP (03/13/2019 9:53 AM EST) athologist Signature EF 55 HEARTLAB SYSTEM Anatomical Region Laterality Modality Other Specimen (Source) Anatomical Location Collection Method / Collectio n Time Received Time / Laterality Volume 03/13/2019 Narrative 03/13/2019 10:29 AM EST Procedure: ?Stress Echocardiogram Patient: ?MATILDA ANDERSON R ? (Age): 1955(63y) Med Rec#: ? [id number] ?Sex: ?M ? Site Loc: ? [facility] ?Ht / Wt: ??175.26(cm)/140. Pt. Loc: ?Echo Lab ?BSA: ?2.49 Study Date: ?? 03/13/2019 ?Pt. Type: Tape: ? Referring: Az Cowart Referring: AHS SMITH L Referring: Es Clinton. Reading: Everton Aiken ([id number]) Reading: Nick Monge ([id number]) Paid Search Specialist: Rick Gold MS, CS Nurse: Pat Goyal Diagnosis: *Atherosclerotic heart disease of nativ e coronary artery without angina pectoris (I25.10) *Palpitations (R00.2) *Shortness of breath (R06.02) Stage ? BP ?HR ? Rest ?137/72 ?65 ? Low dose ?142/62 ?66 ? Peak ?138/60 ?131 ? Recovery ?132/78 ?72 ? SUMMARY: 1. Dobutamine stress echo is indetermina te for ischemia because the target HR was not achieved. ??There is n o ischemia at this near-target level of stress. [...] The left ventricle is moderatel y dilated. ??There is normal global left ventricular systolic functio n. ??Ejection fraction is estimated to be 55%. ??There are left ve ntricular segmental wall motion abnormalities present, as shown in the d iagram below. ??The size of the prosthetic mitral valve is 30mm. ??The p rosthetic mitral valve was implanted on 10/07/2017. ??Status-post p lacement of a mitral valve ring. Mild (1+/4+) mitral prosthesis regurgita tion is present. ??At peak stress, the regional WMA are mostly unch anged as coded below. ??Other segments recruit. ?? 5. ECG: NSR. ??No significant ST changes with stress. PVCs noted (trigeminy). 6. Other details as noted below. ?? Findings Rest: Left Ventricle: ? The left ventricle is moderately dilated. ?There is mild septal hypertrophy o f the left ventricle. ?There is no evidence of LVOT obstr uction. ?There is normal global left ventri cular systolic function. ??Ejection fraction is estimated to be 55%. ?There are left ventricular segment al wall motion abnormalities present, as shown in the diagram below. ?The ??mid inferolateral wall segme nt is hypokinetic (score 2). ?The ??basal inferior, and ??mid in ferior wall segments are akinetic (score 3). ?Overall wallmotion score index is ??1.31 Right Ventricle: ? The right ventric le is probably normal in size. ?Right ventricular global systolic function is probably normal. ?Pulmonary artery hypertension coul d not be assessed due to inadequate tricuspid regurgitation jet. Aortic Valve: ? The aortic valve is trileaflet. The leaflets are thin with normal excursion. There is no aorti c stenosis or regurgitation present. Mitral Valve: ? The size of the pros thetic mitral valve is 30mm. ?The prosthetic mitral valve was im planted on 10/07/2017. ?Status-post placement of a mitral valve ring. ?Mild (1+/4+) mitral prosthesis reg urgitation is present. Tricuspid Valve: ? The tricuspid kristofer ve is probably normal. ?There is trace tricuspid regurgita tion present. Pericardium: ? There is no pericardi al effusion. Stress: ? EKG: normal sinus rhythm. ?EKG: Premature ventricular contrac tions noted. ?EKG: ??ventricular couplets. ?The patient's oxygen saturation wa s 94% on r/a ?The patient is taking a beta block er. held metoprolol for 24 hours Misc: ? Definity contrast was given to enhance Doppler signal. ?The patient is alert and oriented x3. ?The procedure was explained to the patient and the patient understands the procedure, ?A 20 gauge heplock was placed. ?An antecubital IV was placed. ?The heplock was discontinued. ?The IV site is dry and intact with no hematoma. ?Normal saline was given. 250cc's N S ?Definity contrast (one 1.5 ml vial )was used to enhance endocardial definition. Excess contrast was discarde d. ?Stress echo, limited spectral Dopp ler, color Doppler and ECG interpretation performed. Findings Low dose: Stress: ? EKG: normal sinus rhythm. ?EKG: Premature ventricular contrac tions noted. brief episode trigeminy ?The patient's oxygen saturation wa s 94% Findings Peak: Predicted Values:The patient achieved a maximum heart rate of 131 which is 82% of the maximum predicted heart ra te (159 beats/min). ??The target heart rate was not achieved. Left Ventricle: ? There are left sukumar tricular segmental wall motion abnormalities present, as shown in the d iagram below. ?The basal inferior, mid inferolate ral and mid inferior wall segments are unchanged. ?Overall wallmotion score index is ??1.31 Stress: ? The peak dose of Dobutamin e infused was 40 ug/kg/min. ?The patient was administered 0.50 mg of Atropine. ?The patient was administered 5 mg of Metoprolol during recovery. ?The patient performed leg lifts to accelerate heart rate. ?The patient performed hand squeeze s to accelerate heart rate. ?The patient did not express feelin gs of chest discomfort. ?The patient felt nauseous.subsided after dobutamine was stopped. ?The blood pressure response was no rmal. ?There were occasional ventricular premature contractions. ?There were no significant ST segme nt changes. ?EKG: inferolateral T wave inversio n. ?EKG: Premature ventricular contrac tions noted. ?EKG: sinus tachycardia. ?The patient's oxygen saturation wa s 97% no c/o sob Misc: ? Definity contrast was given to enhance Doppler signal. ?The patient is alert and oriented x3. ?The procedure was explained to the patient and the patient understands the procedure, ?A 20 gauge heplock was placed. ?An antecubital IV was placed. ?An IV was placed in the patient's right arm. ?The heplock was discontinued. ?The IV site is dry and intact with no hematoma. Findings Recovery: Stress: ? EKG: normal sinus rhythm. ?The patient's oxygen saturation wa s 94% Chambers 2D ?Value ?Units (Range) ? IVSd (2D) ? 1.33 ? cm ? LVPWd (2D) ?0.93 ? cm ? IVS:LVPW ratio (2D) 1.43 ? ratio ? LVIDd (2D) ?6.15 ? cm ? Diastolic/Systolic Function ?Value ?Units (Range) ? MV E-wave Vmax ?1.17 ? m/sec ? MV deceleration [id number] ?msec ? MV A-wave Vmax ?0.82 ? m/sec ? MV E:A ratio ?1.4 ?ratio ? LV septal e' Vmax ?? 0.05 ? m/sec ? LV lateral e' Vmax ??0.09 ? m/sec ? LV E:e' septal ratio24.2 ? ratio ? LV E:e' lateral rati13.2 ? ratio ? Mitral Valve ?Value ?Units (Range) ? MV Vmax ? 1.33 ? m/sec ? MV VTI ?51.5 ? cm ? MV peak gradient ?7 ?mmHg ? MV mean gradient ?3 ?mmHg ? Wall Motion: Segment Name ?Rest ? Peak ? Base-Anteroseptal ?? Normal ? Normal ? Base-Anterior ? Normal ? Normal ? Base-Anterolateral ??Normal ? Normal ? Base-Posterolateral Normal ? N ormal ? Base-Inferior ? Akinetic ? Akinetic ? Base-Inferoseptal ?? Normal ? Normal ? Mid-Anteroseptal ?Normal ? Normal ? Mid-Anterior ?Normal ? Normal ? Mid-Anterolateral ?? Normal ? Normal ? Mid-Posterolateral ??Hypokinetic ?Hy pokinetic ? Mid-Inferior ?Akinetic ? Akinetic ? Mid-Inferoseptal ?Normal ? Normal ? Crosby-Septal ? Normal ? Normal ? Crosby-Anterior ? Normal ? Normal ? Crosby-Lateral ?Normal ? Normal ? Crosby-Inferior ? Normal ? Normal ? Crosby-Tip ?Normal ? Normal ? This report has been electronically sign ed by: _ Nick Monge MD ? 03/13/2019 10:29:05 Images reviewed and interpretation [facility] Cardiac Ultrasound Laboratory Procedure Note Nick Monge MD - 03/13/2019Forma tting of this note might be different from the original. Procedure: Stress Echocardiogram Patient: MATILDA Garcia (Age): [birth year] 8(63y) Med Rec#: [id number] Sex: M Site Loc: [facility] Ht / Wt: 175.26(cm)/140. Pt. Loc: Echo Lab BSA: 2.49 Study Date: 03/13/2019 Pt. Type: Tape: Referring: Az Cowart Referring: ASH SMITH L Referring: Es Clinton. Reading: Everton Aiken ([id number]) Reading: Nick Monge ([id number]) Paid Search Specialist: Rick Gold MS, CS Nurse: Goyal, Pat Diagnosis: *Atherosclerotic heart disease of nativ e coronary artery without angina pectoris (I25.10) *Palpitations (R00.2) *Shortness of breath (R06.02) Stage BP HR Rest 137/72 65 Low dose 142/62 66 Peak 138/60 131 Recovery 132/78 72 SUMMARY: 1. Dobutamine stress echo is indetermina [...] (trigeminy). 6. Other details as noted below. Findings Rest: Left Ventricle: The left ventricle is mo derately dilated. There is mild septal hypertrophy of the left ventricle. There is no evidence of LVOT obstructio n. There is normal global left ventricular systolic function. Ejection fraction is estimated to be 55%. There are left ventricular segmental wa ll motion abnormalities present, as shown in the diagram below. The mid inferolateral wall segment is h ypokinetic (score 2). The basal inferior, and mid inferior wa ll segments are akinetic (score 3). Overall wallmotion score index is 1.31 Right Ventricle: The right ventricle is probably normal in size. Right ventricular global systolic funct ion is probably normal. Pulmonary artery hypertension could not be assessed due to inadequate tricuspid regurgitation jet. Aortic Valve: The aortic valve is trilea flet. The leaflets are thin with normal excursion. There is no aorti c stenosis or regurgitation present. Mitral Valve: The size of the prosthetic mitral valve is 30mm. The prosthetic mitral valve was implant ed on 10/07/2017. Status-post placement of a mitral valve ring. Mild (1+/4+) mitral prosthesis regurgit ation is present. Tricuspid Valve: The tricuspid valve is probably normal. There is trace tricuspid regurgitation present. Pericardium: There is no pericardial eff usion. Stress: EKG: normal sinus rhythm. EKG: Premature ventricular contractions noted. EKG: ventricular couplets. The patient's oxygen saturation was 94% on r/a The patient is taking a beta sridhar. h eld metoprolol for 24 hours Misc: Definity contrast was given to enh ance Doppler signal. The patient is alert and oriented x3. The procedure was explained to the bishnu ent and the patient understands the procedure, A 20 gauge heplock was placed. An antecubital IV was placed. The heplock was discontinued. The IV site is dry and intact with no h ematoma. Normal saline was given. 250cc's NS Definity contrast (one 1.5 ml vial)was used to enhance endocardial definition. Excess contrast was discarde d. Stress echo, limited spectral Doppler, color Doppler and ECG interpretation performed. Findings Low dose: Stress: EKG: normal sinus rhythm. EKG: Premature ventricular contractions noted. brief episode trigeminy The patient's oxygen saturation was 94% Findings Peak: Predicted Values:The patient achieved a maximum heart rate of 131 which is 82% of the maximum predicted heart ra te (159 beats/min). The target heart rate was not achieved. Left Ventricle: There are left ventricul ar segmental wall motion abnormalities present, as shown in the d iagram below. The basal inferior, mid inferolateral a nd mid inferior wall segments are unchanged. Overall wallmotion score index is 1.31 Stress: The peak dose of Dobutamine infu sed was 40 ug/kg/min. The patient was administered 0.50 mg of Atropine. The patient was administered 5 mg of Me toprolol during recovery. The patient performed leg lifts to acce lerate heart rate. The patient performed hand squeezes to accelerate heart rate. The patient did not express feelings of chest discomfort. The patient felt nauseous.subsided afte r dobutamine was stopped. The blood pressure response was normal. There were occasional ventricular kacey ture contractions. There were no significant ST segment ch anges. EKG: inferolateral T wave inversion. EKG: Premature ventricular contractions noted. EKG: sinus tachycardia. The patient's oxygen saturation was 97% no c/o sob Misc: Definity contrast was given to enh ance Doppler signal. The patient is alert and oriented x3. The procedure was explained to the bishnu ent and the patient understands the procedure, A 20 gauge heplock was placed. An antecubital IV was placed. An IV was placed in the patient's right arm. The heplock was discontinued. The IV site is dry and intact with no h ematoma. Findings Recovery: Stress: EKG: normal sinus rhythm. The patient's oxygen saturation was 94% Chambers 2D Value Units (Range) IVSd (2D) 1.33 cm LVPWd (2D) 0.93 cm IVS:LVPW ratio (2D) 1.43 ratio LVIDd (2D) 6.15 cm Diastolic/Systolic Function Value Units (Range) MV E-wave Vmax 1.17 m/sec MV deceleration [id number] msec MV A-wave Vmax 0.82 m/sec MV E:A ratio 1.4 ratio LV septal e' Vmax 0.05 m/sec LV lateral e' Vmax 0.09 m/sec LV E:e' septal ratio24.2 ratio LV E:e' lateral rati13.2 ratio Mitral Valve Value Units (Range) MV Vmax 1.33 m/sec MV VTI 51.5 cm MV peak gradient 7 mmHg MV mean gradient 3 mmHg Wall Motion: Segment Name Rest Peak Base-Anteroseptal Normal Normal Base-Anterior Normal Normal Base-Anterolateral Normal Normal Base-Posterolateral Normal Normal Base-Inferior Akinetic Akinetic Base-Inferoseptal Normal Normal Mid-Anteroseptal Normal Normal Mid-Anterior Normal Normal Mid-Anterolateral Normal Normal Mid-Posterolateral Hypokinetic Hypokinet ic Mid-Inferior Akinetic Akinetic Mid-Inferoseptal Normal Normal Crosby-Septal Normal Normal Crosby-Anterior Normal Normal Crosby-Lateral Normal Normal Crosby-Inferior Normal Normal Crosby-Tip Normal Normal This report has been electronically sign ed by: _ Nick Monge MD 03/13/2019 10:29: 05 Images reviewed and interpretation francisca cardoza [facility] Cardiac Ultrasound Laboratory Az Cowart MD ECHO ORDERABLES EKG 12 Lead (03/06/2019 3:16 PM EST) Component Value Ref Range Test Analysis Performed Pathologis t Method Time At Signature Ventricular rate 57 BPM MUSE SYSTEM Atrial Rate 57 BPM MUSE SYSTEM P-R Interval 164 ms MUSE SYSTEM QRS Duration 122 ms MUSE SYSTEM Q-T Interval 498 ms MUSE SYSTEM QTC Calculated 484 ms MUSE SYSTEM (Bezet) Calculated P Ezel 58 degrees MUSE SYSTEM Calculated R Ezel 80 degrees MUSE SYSTEM Calculated T Ezel 66 degrees MUSE SYSTEM INTERPRETATION Sinus bradycardia MUSE SY STEM Possible Inferior infarct (cited on or before 23-FEB-1995) Abnormal ECG When compared with ECG of 10-AUG-2018 14:49, Serial changes of Inferior infarct Present Confirmed by Kavya Gray ([id number]) on 03/07/2019 3:19:13 P M Specimen Anatomical Collection Method Collection Time Receive d Time (Source) Location / / Volume Laterality 03/06/2019 3:16 PM 0 3:19 EST PM EST Jaron Georges MD ECG ORDERABLES Performing Organization Address City/State/ZIP Code Phon e Number MUSE SYSTEM documented in this encounter Visit Diagnoses Diagnosis Paroxysmal atrial fibrillation Atrial fibrillation Coronary artery disease, angina presence unspecified, unspecified vessel or lesion type, unspecified whether [place] or verde splanted heart Nonrheumatic mitral valve regurgitation MICHELLE (obstructive sleep apnea) Obstructive sleep apnea (adult) (pediatr ic) Palpitations SOB (shortness of breath) Shortness of breath Coronary artery disease, angina presence unspecified, unspecified vessel or lesion type, unspecified whether [place] or verde splanted heart MICHELLE (obstructive sleep apnea) Obstructive sleep apnea (adult) (pediatr ic) Palpitations SOB (shortness of breath) Shortness of breath Coronary artery disease, angina presence unspecified, unspecified vessel or lesion type, unspecified whether [place] or verde splanted heart MICHELLE (obstructive sleep apnea) Obstructive sleep apnea (adult) (pediatr ic) SOB (shortness of breath) Shortness of breath documented in this encounter Care Teams Day Treatment Clinician/Art Therapist Relationship Specialty Start Date End Date Es Clinton PA PCP - General Family Medicine 08/09/17 10/09/19 [address] [place] [address] documented as of this encounter
--- OUTSIDE RECORDS SUMMARY | 2021-10-28 14:11 | XMS_ITS | Encounter Summary ---
:1955 Author Organization [facility] [place] [address] Care Team Providers Name Role Phone Es Clinton Primary Care Provider Reason for Referral Diagnostic Test (Routine) - Closed Specialty Diagnoses / Procedures Referred By Contact Refer red To Contact Diagnoses Coronary artery disease, angina presence unspecified, unspecified vessel or lesion type, unspecified whether [place] or transplanted heart MICHELLE (obstructive sleep apnea) Palpitations SOB (shortness of breath) Ash Grant PA [facility] Non-Inv Card Lab Procedures Echo pharm stress test (DSE) [place] [address] Drive [place] [phone] Phone: Fax: Referral ID Status Reason Start Date Expiration Date Visits V isits Requested Authorized [id number] Closed Specialty 03/06/2019 06/04/2019 1 1 Service Requested Reason for Visit Diagnostic Test (Routine) - Closed Specialty Diagnoses / Procedures Referred By Contact Refer red To Contact Diagnoses Coronary artery disease, angina presence unspecified, unspecified vessel or lesion type, unspecified whether [place] or transplanted heart MICHELLE (obstructive sleep apnea) Palpitations SOB (shortness of breath) Ash Grant PA [facility] Non-Inv Card Lab Procedures Echo pharm stress test (DSE) [facility] [place] [facility] [place] [address] [place] [address] Phone: Fax: Referral ID Status Reason Start Date Expiration Date Visits V isits Requested Authorized [id number] Closed Specialty 03/06/2019 06/04/2019 1 1 Service Requested Encounter Details Date Type Department Care Team Description 03/13/2019 Hospital Encounter Non-Invasive Jeannette, Az Coronar y artery disease, angina presence unspecified, unspecified vessel or lesion type, unspecified whether [place] or transplanted heart; Cardiology Lab Petra James MD MICHELLE (obstructive sleep apnea); [facility] Palpitati ons; [facility] [address] BAILON (shortness of breath) [facility] [place] [phone] Social History Tobacco Use Types Packs/Day Years [...] Sign Reading Time Taken Comments Blood Pressure 137/72 03/13/2019 8:39 AM EST Pulse 69 03/13/2019 8:39 AM EST Temperature - - Respiratory Rate 20 03/13/2019 8:39 AM EST Oxygen Saturation 94% 03/13/2019 8:39 AM EST Inhaled Oxygen Concentration - - Weight 142.4 kg (314 lb) 03/13/2019 8:39 AM EST Height 175.3 cm (5' 9) 03/13/2019 8:39 AM EST Body Mass Index 46.37 03/13/2019 8:39 AM EST documented in this encounter Medications at Time [...] Visit Nephrology Jonn Zuniga MD [facility] [place]PH[facility], [place] [address] (Wo rk) documented as of this encounter Procedures Procedure Name Priority Date/Time Associated Diagnosis Comme nts STRESS ECHOCARDIOGRAM Routine 03/13/2019 9:53 Coronary artery Results for this W CONTRAST LMTD SPEC AM EST disease, angina proc edure are in DOPP,COLOR DOPP presence the results unspecified, section. unspecified vessel or lesion type, unspecified whether [place] or transplanted hea rt MICHELLE (obstructive sleep apnea) Palpitations SOB (shortness of breath) documented in this encounter Results STRESS ECHOCARDIOGRAM W CONTRAST LMTD SPEC DOPP,COLOR DOPP (03/13/2019 9:53 AM EST) athologist Signature EF 55 HEARTLAB SYSTEM Anatomical Region Laterality Modality Other Specimen (Source) Anatomical Location Collection Method / Collectio n Time Received Time / Laterality Volume 03/13/2019 Narrative 03/13/2019 10:29 AM EST Procedure: ?Stress Echocardiogram Patient: ?MATILDA Garcia ? (Age): 1955(63y) Med Rec#: ? [id number] ?Sex: ?M ? Site Loc: ? [facility] ?Ht / Wt: ??175.26(cm)/140. Pt. Loc: ?Echo Lab ?BSA: ?2.49 Study Date: ?? 03/13/2019 ?Pt. Type: Tape: ? Referring: Az Cowart Referring: ASH GRANT L Referring: Es Clinton. Reading: Everton Aiken ([id number]) Reading: Nick Monge ([id number]) Exterior Door Installer: Rick Gold MS, [facility] Nurse: Pat Goyal Diagnosis: *Atherosclerotic heart disease [...] Vmax ?1.17 ? m/sec ? MV deceleration [id number] ?msec ? MV A-wave Vmax ?0.82 ? [...] Akinetic ? Mid-Inferoseptal ?Normal ? Normal ? Mclean-Septal ? Normal ? Normal ? Mclean-Anterior ? Normal ? Normal ? Mclean-Lateral ?Normal ? Normal ? Mclean-Inferior ? Normal ? Normal ? Mclean-Tip ?Normal ? Normal ? This report has been electronically sign ed by: _ Nick Monge MD ? 03/13/2019 10:29:05 Images reviewed and interpretation verif ied [facility] Cardiac Ultrasound Laboratory Procedure Note Nick Monge MD - 03/13/2019Forma tting of this note might be different from the original. Procedure: Stress Echocardiogram Patient: MATILDA Garcia DOB(Age): [birth year](63y) Med Rec#: [id number] Sex: M Site Loc: [facility] Ht / Wt: 175.26(cm)/140. Pt. Loc: Echo Lab BSA: 2.49 Study Date: 03/13/2019 Pt. Type: Tape: Referring: Az Cowart Referring: ASH GRANT L Referring: Es Clinton. Reading: Everton Aiken ([id number]) Reading: Nick Monge ([id number]) Exterior Door Installer: Rick Gold MS, [facility] Nurse: Pat Goyal Diagnosis: *Atherosclerotic heart disease [...] MV E-wave Vmax 1.17 m/sec MV deceleration siie153 msec MV A-wave Vmax 0.82 m/sec MV [...] ic Mid-Inferior Akinetic Akinetic Mid-Inferoseptal Normal Normal Mclean-Septal Normal Normal Mclean-Anterior Normal Normal Mclean-Lateral Normal Normal Mclean-Inferior Normal Normal Mclean-Tip Normal Normal This report has been electronically sign ed by: _ Nick Monge MD 03/13/2019 10:29: 05 Images reviewed and interpretation francisca cardoza [facility] Cardiac Ultrasound Laboratory Az Cowart MD ECHO ORDERABLES documented in this encounter Visit Diagnoses Diagnosis Coronary artery disease, angina presence unspecified, unspecified vessel or lesion type, unspecified whether [place] or verde splanted heart MICHELLE (obstructive sleep apnea) Obstructive sleep apnea (adult) (pediatr ic) Palpitations SOB (shortness of breath) Shortness of breath documented in this encounter Administered Medications Inactive Administered Medications - up to 3 most recent administrations Medication Order MAR Action Action Date Dose Rate Site atropine injection 0.5 mg Given 03/13/2019 9:33 AM EST 0.5 mg 15 mL/hr 0.5 mg, Intravenous, at 15 mL/hr, ONCE, 1 dose, On Tue03/13/19 at 1000, Echo Lab (Intra-Procedure), Routine DOBUTamine (2000 mcg/mL) 100 New Bag 03/13/2019 9:23 AM 40 mcg /kg/min 170.9 mL/hr mg in Dextrose 5% 50 mL EST infusion 40 mcg/kg/min ? 142.4 kg (170.88 mL/hr, rounded to 170.9 mL/hr), Intravenous, ONCE, 1 dose, On Tue03/13/19 at 1000, Warning Vesicant/Irritant Medication , Echo Lab (Intra-Procedure) metoprolol (LOPRESSOR) injection 5 mg Given 03/13/2019 9:35 AM EST 5 mg 5 mg, Intravenous, ONCE, 1 dose, On Tue03/13/19 at 1000, Echo Lab (Intra-Procedure), Routine perflutren lipid microspheres (DEFINITY) Given 03/13/2019 9:00 A M EST 1.3 mLs injection 1.3 mL 1.3 mL, Intravenous, ONCE PRN, 1 dose, Starting on Tue03/13/19 at 0953, Until Tue03/13/19 at 0900, PRN, Routine documented in this encounter Care Teams Neuroradiologist Relationship Specialty Start Date End Date Es Clinton PA PCP - General Family Medicine 08/09/17 10/09/19 [address] [place] [address] documented as of this encounter
--- OUTSIDE RECORDS SUMMARY | 2021-10-28 14:11 | XMS_ITS | Encounter Summary ---
:1955 Author Organization [facility] [place] [address] Care Team Providers Name Role Phone Unknown Primary Care Provider Unavailable Encounter Details Date Type Department Care Team Description 10/09/2019 TH Visit [place]ology [place] [facility] Kori Jordan MD [facility] [place] [address] Shortness of breath (TeleHealth) [facility] Lexie Phillip MD [facility] [place] [address] [place] [address] Social History Tobacco Use Types Packs/Day Years [...] documented as of this encounter Progress Notes Lexie Phillip MD - 10/09/2019 2:00 PM EDT Images from the original note were not included. INITIAL OUTPATIENT CONSULTATION NOTE SECTION OF PULMONARY/CRITICAL CARE MEDICINE PATIENT NAME: Cristian Miner : 1955 MEDICAL RECORD: [id number] DATE OF SERVICE: 10/09/2019 PRIMARY CARE PHYSICIAN: NORBERTO Cage Reason for Consultation: Shortness of breath with exertion Chief Complaint: Shortness of breath with exertion History of Present Illness: Mr. Cristian Miner is a 63 y.o. man with PMHx of atrial fibrillation, mitral regurgitation s/p MVR in 2018, CAD s/p CABG in 2018, MICHELLE (on CPAP) who was referred for evaluation of shortness of breath with exertion. Per patient's his shortness of breath has been present and gradually progressing for the past 2 years and started gradually after his surgery, with a sharp decline in functioning over thepast 6 months. He is now unable to walk up a flight of stairs, and can walk only 100 yards before heis symptomatic. Previously, he could easily walk 1-2 miles daily. According to Mr. Miner, his episode usually lasts about 5 minutes and resolves spontaneously, his rapid heavy breathing during these bother him, and he denies any chest pain or palpitations. He also hassymptoms at night 3-4 times a week, uses 2 pillows to sleep but denies orthopnea. Does have a cough minimally productive of clear sputum on and off. He was prescribed Albuterol to use as needed, which he has been using 4-5 times a day without much improvement in symptoms. Denies seasonal allergies, recurrent sinus infections or allergic rhinitis. Review of Systems: A 12 point ROS was negative aside from as listed in the HPI. Past Medical/Surgical History: As mentioned above Medications: Prior to Admission medications Medication Sig Start Date End Date Taking? Authorizing Provider buPROPion SR (WELLBUTRIN SR) 150 mg tablet sustained-release 12 hr 150 mg daily. 02/09/19 PROVIDER, HISTORICAL furosemide (LASIX) 20 mg Tablet 40 mg daily. 1-2 tablets 02/16/19 PROVIDER, HISTORICAL docusate sodium (COLACE) 100 mg Capsule Take 100 mg by mouth 2 times daily. PROVIDER, HISTORICAL metoprolol tartrate (LOPRESSOR) 50 mg Tablet Take 1 tablet by mouth 2 times daily. 03/03/18 Courtney Brewster MD AMIOdarone (CORDARONE; PACERONE) 200 mg Tablet Take 0.5 tablets by mouth daily. 03/03/18 Courtney Brewster MD apixaban (ELIQUIS) 5 mg Tablet Take 1 tablet by mouth 2 times daily. 03/03/18 Courtney Brewster MD acetaminophen (TYLENOL) 500 mg Tablet Take 2 tablets by mouth every 6 hours as needed for Pain. 10/18/17 Hailee Aguilar APRN albuterol 90 mcg/actuation HFA Aerosol Inhaler Inhale 2 puffs into the lungs every 4 hours as neededfor Wheezing. Use with spacer PROVIDER, HISTORICAL aspirin 81 mg Tablet, Delayed Release (E.C.) Take 81 mg by mouth daily. PROVIDER, HISTORICAL atorvastatin (LIPITOR) 40 mg Tablet Take 40 mg by mouth daily. PROVIDER, HISTORICAL tamsulosin (FLOMAX) 0.4 mg Capsule, Sust. Release 24 hr Take 0.4 mg by mouth daily. PROVIDER, HISTORICAL Allergies: No Known Allergies Social History: Past smoker, 2ppf for 20 years, quit 22 years ago. Denies pipe/cigar smoking or vaping. 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 Labs: Eosinophil count on last CBC 0.4% PFTS:09/17/2019: Normal Imaging and other data: (Images personally reviewed) Dobutamine Echo 03/13/2019 Indeterminate for ischemia (target HR not achieved), no ischemia at near target level of stress. LV moderately dilated on Echo, EF 55%, LV RWMA present, s/p mitral valve ring.Mild 1+ mitral prosthesis regurgitation present. At peak stress, regional WMA mostly unchanged. CXR 03/13/2019 Normal 2D Echo 06/2017 Moderate LVH, Mildly reduced systolic function, EF 45-50%, Mild hypokinesis of the inferior myocardium. Mod-Severe MR, PASP 20-30mmHg Assessment: Cristian Miner is a 63 y.o. man with PMHx of atrial fibrillation, mitral regurgitation s/p MVR in 2018,CAD s/p CABG in 2018 who was referred for evaluation of shortness of breath with exertion. At this time, it appears that volume overload may be contributing to his symptoms and his certified flex endoscope reprocessor uptitrated his furosemide dose to 60mg daily a few days ago. There is no evidence to suggest an underlying lung disease at this time but can be further evaluated with a 6 minute walk test during an in-person follow up visit in 2-3 weeks, should his symptoms not improve with an increased diuretic dose. Recommendations: ?? Agree with trial of diuresis to address volume overload and pulmonary edema as etiologies of shortness of breath ?? If symptoms persist, will consider obtaining a 6 minute walk test ?? Note to be sent to NORBERTO Cage ?? Follow-up with me in 2-3 weeks. C/D/W Dr. Kori Phillip Pulmonary Critical Care Fellow Kori Jordan MD - 10/09/2019 2:00 PM EDT Patient interviewed via telephone with Dr. Phillip; data and radiographic studies reviewed. My findingsagree with those outlined by Dr. Phillip, whose note reflects our jointly formulated plan of care. It is unclear whether Mr. Miner's worsening shortness of breath is all cardiac in etiology, or whether there may be another process at play. His Lasix dose was just increased, so I think it makes sense to wait and see whether he has symptomatic improvement with that. If not, I think we will need to seehim in clinic to see whether he has crackles on exam and/or exercise-induced oxygen desaturation. Hehas been on amiodarone for some time, and although his chest x- ray from 7 months ago showed no evidence of interstitial lung disease, the possibility of drug-induced lung disease lurks in the background, and it would be helpful to know whether there are any other findings that would suggest it. documented in this encounter Miscellaneous Notes Addendum Note - Kori Jordan MD - 10/09/2019 2:00 PM EDT Addended by: KORI JORDAN on: 10/10/2019 11:26 AM Modules accepted: Level of Service documented in this encounter Plan of Treatment Upcoming Encounters Date Type Specialty Care Team Description 11/11/2021 Office Visit Nephrology Jonn Zuniga MD [facility] [place] [address] (Wo rk) documented as of this encounter Visit Diagnoses Diagnosis Shortness of breath documented in this encounter Care Teams Electrical Engineer Relationship Specialty Start Date End Date Unknown PCP - General 10/10/19 11/26/19 None documented as of this encounter
--- OUTSIDE RECORDS SUMMARY | 2021-10-28 14:11 | XMS_ITS | Encounter Summary ---
:1955 Author Organization [facility] [place] [address] Care Team Providers Name Role Phone Es Clinton Primary Care Provider Encounter Details Date Type Department Care Team Description 09/07/2019 Telephone [place]ology [place] [facility] [place] [address] [phone] Social History Tobacco Use Types Packs/Day [...] 11/11/2021 Office Visit Nephrology Jonn Zuniga MD [facility] NEPHROLOGY DEPT [place], [place] [address] (Wo rk) documented as of this encounter Visit Diagnoses Not on filedocumented in this encounter Care Teams Emergency Medical Services Coordinator Relationship Specialty Start Date End Date Es Clinton PA PCP - General Family Medicine 08/09/17 10/09/19 [address] [place] [address] documented as of this encounter
--- OUTSIDE RECORDS SUMMARY | 2021-10-28 14:11 | XMS_ITS | Encounter Summary ---
:1955 Author Organization [facility] [place] [address] Care Team Providers Name Role Phone Es Clinton Primary Care Provider Encounter Details Date Type Department Care Team Description 04/25/2019 Orders Only Pulmonology at [facility] Jared Palacios MD Coronary artery [facility] [address] disease, angina [address] [place], [place] presence unspecified, [place] [address] [place] [phone] lesion type, unspecifi ed whether [place] or trans planted heart (Primary Dx) Social History Tobacco Use Types Packs/Day [...] Visit Nephrology Jonn Zuniga MD [facility] NEPH[facility]OLOGY [place], [place] [address] (Wo rk) documented as of this encounter Visit Diagnoses Diagnosis Coronary artery disease, angina presence unspecified, unspecified vessel or lesion type, unspecified whether [place] or verde splanted heart - Primary documented in this encounter Care Teams Ic Designer Standard Cells Relationship Specialty Start Date End Date Es Clinton PA PCP - General Family Medicine 08/09/17 10/09/19 [address] [place] [address] documented as of this encounter
--- OUTSIDE RECORDS SUMMARY | 2021-10-28 14:11 | XMS_ITS | Encounter Summary ---
:1955 Author Organization [facility] [place] [address] Care Team Providers Name Role Phone Es Clinton Primary Care Provider Encounter Details Date Type Department Care Team Description 11/17/2017 Hospital Encounter XRay at [facility], S/P MVR (mitral valve repair ); [address] [facility] [address] Hailee APRN S/P CABG x 2 [facility] [phone] [place] [phone] [place] [address] Social History Tobacco Use Types Packs/Day Years [...] Sig Dispensed Refills Start Date End Date aspirin 81 mg Tablet, Take 81 mg by mouth 0 Delayed Release (E.C.) daily. tamsulosin (FLOMAX) 0.4 Take 0.4 mg by 0 mg Capsule, Sust. Release mouth daily. 24 hr acetaminophen (TYLENOL) Take 2 tablets by 30 tablet 1 10/18 500 mg Tablet mouth every 6 hours as needed for Pain. albuterol 90 Inhale 2 puffs into 0 mcg/actuation HFA Aerosol the lungs every 4 Inhaler hours as needed for Wheezing. Use with spacer furosemide (LASIX) 40 mg 20 mg daily. 0 8 03/06/2019 Tablet AMIOdarone (CORDARONE; Take 1 tablet by 30 tablet 0 018 03/03/2018 PACERONE) 200 mg Tablet mouth daily. metoprolol tartrate Take 1 tablet by 180 tablet 3 10/18/2017 03/03/2018 (LOPRESSOR) 50 mg Tablet mouth every 8 hours. warfarin (COUMADIN) 1 mg Take 2 tablets by 100 tablet 3 09/2203/03/2018 Tablet mouth daily. Per INR atorvastatin (LIPITOR) 40 Take 40 mg by mouth 0 03/10/2021 mg Tablet daily. documented as of this encounter Plan of Treatment Upcoming Encounters Date Type Specialty Care Team Description 11/11/2021 Office Visit Nephrology Jonn Zuniga MD [facility] NE[facility] DEPT [place] [address] (Wo rk) documented as of this encounter Procedures Procedure Name Priority Date/Time Associated Diagnosis Comme nts XR CHEST PA AND Routine 11/17/2017 2:00 PM S/P MVR (mitral Res ults for this LATERAL EDT valve repair) procedure are in S/P CABG x 2 the results section. documented in this encounter Results XR Chest PA & Lateral (Generic) (11/17/2017 2:00 PM EDT) Anatomical Region Laterality Modality Chest N/A Digital Radiography Specimen (Source) Anatomical Location Collection Method / Collectio n Time Received Time / Laterality Volume Impressions 11/17/2017 3:54 PM EDT Improved aeration and resolution of pleural effusions. I have personally reviewed the image(s) and the residents interpretation and agree with the findings, Jared nicole 11/17/2017 3:54 PM Narrative 11/17/2017 3:54 PM EDT EXAMINATION: XR CHEST PA AND LATERAL (GENERIC) CLINICAL HISTORY: s/p mv repair, cabg TECHNIQUE: PA and lateral chest radiograph COMPARISON: PA and lateral chest radiograph 8 FINDINGS: There is a better degree of aeration of the lungs, which are clear and the small pleural effusions have resolved there is no pneumothorax or other interval change. Again noted are sternotomy wires and a repaired mitral valve. Procedure Note Jared Martins MD - 11/17/2017Formatt ing of this note might be different from the original. EXAMINATION: XR CHEST PA AND LATERAL (GE NERIC) CLINICAL HISTORY: s/p mv repair, cabg TECHNIQUE: PA and lateral chest radiograph COMPARISON: PA and lateral chest radiograph 8 FINDINGS: There is a better degree of aeration of the lungs, which are clear and the small pleural effusions have resolved there is no pneumothorax or other interval change. Again noted are sternotomy wires and a repaired mitral valve. IMPRESSION Improved aeration and resolution of pleu ral effusions. I have personally reviewed the image(s) and the residents interpretation and agree with the findings, Jared nicole 11/17/2017 3:54 PM Hailee Aguilar APRN IMG DX ORDERABLES documented in this encounter Visit Diagnoses Diagnosis S/P MVR (mitral valve repair) Other postprocedural status S/P CABG x 2 Postsurgical aortocoronary bypass status documented in this encounter Care Teams Wheel Grinder Relationship Specialty Start Date End Date Es Clinton PA PCP - General Family Medicine 08/09/17 10/09/19 [address] [place] [address] documented as of this encounter
--- OUTSIDE RECORDS SUMMARY | 2021-10-28 14:11 | XMS_ITS | Encounter Summary ---
:1955 Author Organization [facility] [place] [address] Care Team Providers Name Role Phone Unknown Primary Care Provider Unavailable Encounter Details Date Type Department Care Team Description 10/15/2019 Telephone Cardiology at [facility] [place], [place] [address] Social History Tobacco Use Types Packs/Day [...] this encounter Miscellaneous Notes Telephone Encounter - Brian Cordero RN - 10/15/2019 10:39 AM EDT Requested Prescriptions Pending Prescriptions Disp Refills ??? furosemide (Lasix) 20 mg Tablet 270 tablet 3 Sig: Take 3 tablets by mouth daily. 1-2 tablets Received a telephonic prescription refill request for above Lasix from [facility], [place], [facility], [place], [place]. Refill request for 90 days with 3 refills advanced, anticipating telehealth follow up with Shalom Grant in October,. Reviewed Epic record and last office note from Mr. Grant dated 10/05/2019. Plan 1. Increase lasix to 60mg once daily. 2. Lab tests: CMP + CBC 3. Follow up 4 weeks / phone call tele health 4. Increase walking. ?? F/U 4 weeks tele visit call Refill prepped and forwarded to Provider for authorization Oliverio Cordero RNtraining associate Team Nurse [facility] Ambulatory Cardiology documented in this encounter Plan of Treatment Upcoming Encounters Date Type Specialty Care Team Description 11/11/2021 Office Visit Nephrology Jonn Zuniga MD [facility] NEPHROLOGY [place], [place] [address] (Wo rk) documented as of this encounter Visit Diagnoses Not on filedocumented in this encounter Care Teams Dusting And Brushing Machine Operator Relationship Specialty Start Date End Date Unknown PCP - General 10/10/19 11/26/19 None documented as of this encounter
--- OUTSIDE RECORDS SUMMARY | 2021-10-28 14:11 | XMS_ITS | Encounter Summary ---
:1955 Author Organization [facility] [place] [address] Care Team Providers Name Role Phone Es Clinton Primary Care Provider Encounter Details Date Type Department Care Team Description 09/18/2019 Orders Only [place] [facility] [place]anda Zhang [place] Dyspnea on exertion [place] [phone] Pulmonary Medicine [phone] [place], [place] [address] (Wo rk) Social History Tobacco Use Types [...] 11/11/2021 Office Visit Nephrology Jonn Zuniga MD [facility] ER NEPHROLOGY DEPT [place], [place] [address] (Wo rk) documented as of this encounter Visit Diagnoses Diagnosis Dyspnea on exertion Other dyspnea and respiratory abnormalit y documented in this encounter Care Teams Plant Accountant Relationship Specialty Start Date End Date Es Clinton PA PCP - General Family Medicine 08/09/17 10/09/19 [address] [place] [address] documented as of this encounter
--- OUTSIDE RECORDS SUMMARY | 2021-10-28 14:11 | XMS_ITS | Encounter Summary ---
:1955 Author Organization [facility] [place] [address] Care Team Providers Name Role Phone Unknown Primary Care Provider Unavailable Encounter Details Date Type Department Care Team Description 10/25/2019 Telephone Pulmonology at [facility] [place] [address] Social History Tobacco Use Types Packs/Day [...] Telephone Encounter - Amy Varela LNA - 10/25/2019 8:11 AM EDT LM for pt to call us back to confirm appt rescheduled to 11/26. documented in this encounter Plan of Treatment Upcoming Encounters Date Type Specialty Care Team Description 11/11/2021 Office Visit Nephrology Jonn Zuniga MD [facility] ER NEPHROLOGY DEPT [place], [place] [address] (Wo rk) documented as of this encounter Visit Diagnoses Not on filedocumented in this encounter Care Teams Certified Flight Instructor Relationship Specialty Start Date End Date Unknown PCP - General 10/10/19 11/26/19 None documented as of this encounter
--- OUTSIDE RECORDS SUMMARY | 2021-10-28 14:11 | XMS_ITS | Encounter Summary ---
:1955 Author Organization [facility] Address [facility] [place] [address] Care Team Providers Name Role Phone Es Clinton Primary Care Provider Reason for Visit Reason Comments Coronary Artery Disease 10/07/17 Mitral valve repair, CABGx2 (two venous grafts) Heart Valve Replacement Atrial Fibrillation 10/12/17: Direct current card ioversion Obstructive Sleep Apnea Follow-up Encounter Details Date Type Department Care Team Description 11/10/2017 Office Visit Cardiology at [facility] Shalom Grant, Paroxysmal atrial fibrillati on; [facility] NORBERTO Coronary artery disease, angina presence unspecified, unspecified vessel or lesion type, unspecified whether [place] or transplanted heart; Drive [facility] Non-rheumatic mitral regurgi tation; [place], [place] Dr MARTINEZ (obstructive sleep apnea); [id number] [place] [address] Palpitations; [phone] SOB (shortness of breath) (Work) Social History [...] Sign Reading Time Taken Comments Blood Pressure 139/77 11/10/2017 1:12 PM EDT Pulse 71 11/10/2017 1:12 PM EDT Temperature - - Respiratory Rate - - Oxygen Saturation 95% 11/10/2017 1:12 PM EDT Inhaled Oxygen Concentration - - Weight 126.1 kg (278 lb) 11/10/2017 1:12 PM EDT Height - - Body Mass Index 42.62 10/07/2017 7:11 AM EDT documented in this encounter Progress Notes Codey Lynn - 11/10/2017 1:20 PM EDT 61 yo male Shalom Grant PA - 11/10/2017 1:20 PM EDT Images from the original note were not included. Reason for Visit: follow up after discharge for CABG and Mitral Valve Repair Primary provider: NORBERTO Cage [address] [place] [address] ?? Problem List: Patient Active Problem List Diagnosis ??? Morbid obesity ??? Atrial fibrillation 10/12/17: Direct current cardioversion ??? MICHELLE (obstructive sleep apnea) ??? SOB (shortness of breath) ??? Palpitations ??? Mitral regurgitation ??? CAD (coronary artery disease) 10/07/17 Mitral valve repair, CABGx2 (two venous grafts) HPI: Cristian Miner is a 61 y.o. male whom I am meeting for the first time today in clinic. He is a pleasant gentleman who lives with his near [place], [place]. His PCP is in [facility]. He is a former smoker and has a past medical history significant for obesity, obstructive sleep apnea, severe MR, coronary artery disease, with baseline EF recently 55-65%. He tells me he underwent primary angioplasty in the for a remote MS. Pre-operative catheterization has demonstrated his 2 vessel coronary disease as well as mild pHTN. He was discharged from [facility] 10/18/2017 following 2 vessel bypass (SVG - OM, SVG - PDA), MVR with ring, and DCCV for atrial fibrillation; he was diagnosed early this year and was previously on apixaban. He was loaded on amiodarone which he continues, and he was started on warfarin which he continues with therapeutic INR monitoring up near his home. He has not yet started cardiac rehab but looks forwardto doing so. He has been feeling well in his post-operative course. He is walking several times per day. He has no chest pain, discomfort, palpitations. He denies peripheral edema and shortness of breath. He tells me his incision is healing well with minimal discomfort. He denies any syncope, near syncope. He has had no bleeding issues with his anticoagulation and denies any active bleeding, excessive bruising orhematuria. He has refrained from caffeine and alcohol since discharge. His heart rate, which he monitors on hiswatch, hovers around 70 bpms at home. ALLERGIES: No Known Allergies ?? MEDICATIONS: ?? Current Outpatient Prescriptions: ??? AMIOdarone (CORDARONE; PACERONE) 200 mg Tablet, Take 1 tablet by mouth daily., Disp: 30 tablet, Rfl: 0 ??? metoprolol tartrate (LOPRESSOR) 50 mg Tablet, Take 1 tablet by mouth every 8 hours., Disp: 180 tablet, Rfl: 3 ??? furosemide (LASIX) 20 mg Tablet, Take 1 tablet by mouth daily., Disp: 30 tablet, Rfl: 3 ??? warfarin (COUMADIN) 1 mg Tablet, Take 2 tablets by mouth daily. Per INR, Disp: 100 tablet, Rfl: 3 ??? albuterol 90 mcg/actuation HFA Aerosol Inhaler, Inhale 2 puffs into the lungs every 4 hours as needed for Wheezing. Use with spacer, Disp: , Rfl: ??? atorvastatin (LIPITOR) 40 mg Tablet, Take 40 mg by mouth daily., Disp: , Rfl: ??? tamsulosin (FLOMAX) 0.4 mg Capsule, Sust. Release 24 hr, Take 0.4 mg by mouth daily., Disp: , Rfl: ??? acetaminophen (TYLENOL) 500 mg Tablet, Take 2 tablets by mouth every 6 hours as needed for Pain., Disp: 30 tablet, Rfl: 1 ??? melatonin 3 mg Tablet, Take 1 tablet by mouth nightly as needed (for sleep). (Patient not taking: Reported on 11/10/2017), Disp: , Rfl: ??? aspirin 81 mg [...] general, alert and oriented X 3, obese male in no apparent distress whoeasily ambulates around exam room. His neck exam is unrevealing with no appreciable thyromegaly, andno carotid bruit. His carotid pulses bilaterally are equal and with normal upstroke. On ausculation his lungs are clear with good air entry. I do not appreciate any wheezing or rales. His cardiac exam reveals normal S1 and S2 with a regular rate and no murmurs are auscultated. His abdominal sounds arepresent. His femoral pulses are equal and intact, as are peripheral pulses. No peripheral edema is present. Vitals Office Visit from 11/10/2017 in Cardiology at [facility] Weight 126.1 kg (278 lb) Heart Rate 71 BP 139/77 SpO2 95 % Eyes: No scleral icterus [...] 2+ radial pulse ?? DIAGNOSTIC TESTS: ?? EKG 11/10/2017 Normal sinus rhythm, evidence of previous inferior infarct. HR 65bpm. Narrow QRS, no evidence of conduction delays or active ischemia. Similar to previous. A/P: Cristian Miner is a 61 y.o. male with past medical history of recent CABG with concomitant mitral valve repair. He also underwent successful DC cardioversion for post-operative atrial fibrillation and was started on warfarin and amiodarone during hospitalization. He is doing well in his rehab. #CAD: s/p 2 vessel CABG with SVG - OM and SVG - RPD. Stable with no symptoms at this point. Will continue with recommended and previously prescribed metoprolol, aspirin, statin. No changes to medical management. #MV regurgitation: s/p MVR with annuloplasty ring 30mm Physio II ring and post- procedure reduction in PA pressures. Dyspnea improved at this point. ?? Recommendations: 1: Office visit with Dr. Juan Alberto Tiwari MD on 11/17/17 as scheduled, with CXR and TTE prior 2: Continue current medications as prescribed. Amiodarone monitoring: ecg done today. Will defer LFTs, TSH, eye exam coordination to PCP. 3: follow up in 6 months, sooner PRN. 4: continue on warfarin for [address] Tiwari specifies otherwise Thank you for the opportunity to participate in Mr. Miner's care. I am happy to see him again in clinic at any point should he need further follow up care. NORBERTO Collier 11/10/2017 2:31 PM [facility] Pager [phone] documented in this encounter Plan of Treatment Upcoming Encounters Date Type Specialty Care Team Description 11/11/2021 Office Visit Nephrology Jonn Zuniga MD [facility] NEPH[facility]OLOG[facility] DEPT [place], [place] [address] (Wo rk) documented as of this encounter Procedures Procedure Name Priority Date/Time Associated Diagnosis Comme nts EKG 12-LEAD Routine 11/10/2017 2:16 PM Paroxysmal atrial Resu lts for this EDT fibrillation procedure are in Coronary artery the results disease, angina section. presence unspecified, unspecified vessel or lesion type, unspecified whether [place] or transplanted heart Non-rheumatic mitral regurgitation MICHELLE (obstructive sleep apnea) Palpitations SOB (shortness of breath) documented in this encounter Results EKG 12 Lead (11/10/2017 2:16 PM EDT) Component Value Ref Range Test Analysis Performed Pathologis t Method Time At Signature Ventricular rate 65 BPM MUSE SYSTEM Atrial Rate 65 BPM MUSE SYSTEM P-R Interval 186 ms MUSE SYSTEM QRS Duration 116 ms MUSE SYSTEM Q-T Interval 468 ms MUSE SYSTEM QTC Calculated 486 ms MUSE SYSTEM (Bezet) Calculated P Nixon 60 degrees MUSE SYSTEM Calculated R Nixon 52 degrees MUSE SYSTEM Calculated T Nixon 100 degrees MUSE SYSTEM INTERPRETATION Normal sinus rhythm MUSE SYSTEM Possible Inferior infarct (cited on or before 23-FEB-1995) Nonspecific T wave abnormality Abnormal ECG When compared with ECG of 12-OCT-2017 11:42, No significant change was found Confirmed by MD Miguel, Shan Fernandez ([id number]) on 11/10/2017 9 :59:16 PM Specimen Anatomical Collection Method Collection Time Receive d Time (Source) Location / / Volume Laterality 11/10/2017 2:16 PM 8 9:59 EDT PM EDT Yojana Dolye MD ECG ORDERABLES Performing Organization Address City/State/ZIP Code Phon e Number MUSE SYSTEM documented in this encounter Visit Diagnoses Diagnosis Paroxysmal atrial fibrillation Atrial fibrillation Coronary artery disease, angina presence unspecified, unspecified vessel or lesion type, unspecified whether [place] or [place] heart Non-rheumatic mitral regurgitation Mitral valve disorders MICHELLE (obstructive sleep apnea) Obstructive sleep apnea (adult) (pediatr ic) Palpitations SOB (shortness of breath) Shortness of breath documented in this encounter Care Teams Chief Knowledge Officer Relationship Specialty Start Date End Date Es Clinton PA PCP - General Family Medicine 08/09/17 10/09/19 [address] [place] [address] documented as of this encounter
--- OUTSIDE RECORDS SUMMARY | 2021-10-28 14:11 | XMS_ITS | Encounter Summary ---
:1955 Author Organization [facility] [address] Care Team Providers Name Role Phone Es Clinton Primary Care Provider Reason for Referral Diagnostic Test (Routine) - Closed Specialty Diagnoses / Procedures Referred By Contact Refer red To Contact Cardiology Diagnoses S/P MVR (mitral valve repair) S/P CABG x 2 Juliana Villar APRN [facility] Non-Inv Card Lab Procedures Echocardiogram Transthoracic(Leb) [facility] [address] [place] [facility] [place] [address] [place] [address] Referral ID Status Reason Start Date Expiration Date Visits V isits Requested Authorized [id number] Closed Specialty 11/08/2017 02/06/2018 1 1 Service Requested Reason for Visit Diagnostic Test (Routine) - Closed Specialty Diagnoses / Procedures Referred By Contact Refer red To Contact Cardiology Diagnoses S/P MVR (mitral valve repair) S/P CABG x 2 Juliana Villar APRN [facility] Non-Inv Card Lab Procedures Echocardiogram Transthoracic(Leb) [facility] [address] [place] [facility] [place] [address] [place] [address] Referral ID Status Reason Start Date Expiration Date Visits V isits Requested Authorized [id number] Closed Specialty 11/08/2017 02/06/2018 1 1 Service Requested Encounter Details Date Type Department Care Team Description 11/17/2017 Hospital Encounter Non-Invasive Jeff, S/P MVR ( mitral valve repair); Cardiology Lab Petra Stephen APRN S/P CABG x 2 [facility] [place] [address] [place] [phone] Social History Tobacco Use Types Packs/Day Years [...] [facility] [place], [place] [address] (Wo rk) documented as of this encounter Procedures Procedure Name Priority Date/Time Associated Comments Diagnosis ECHOCARDIOGRAM COMPLETE Routine 11/17/2017 2:04 PM S/P MVR (mi tral Results for this W CONTRAST EDT valve repair) procedure are in S/P CABG x 2 the results section. documented in this encounter Results ECHOCARDIOGRAM COMPLETE W CONTRAST (11/17/2017 2:04 PM EDT) P athologist Signature EF 45 HEARTLAB SYSTEM Anatomical Region Laterality Modality Other Specimen (Source) Anatomical Location Collection Method / Collectio n Time Received Time / Laterality Volume 11/17/2017 Narrative 11/17/2017 2:26 PM EDT Procedure: ?Transthoracic Echocardiogram Patient: ?MATILDA ANDERSON R ? (Age): 1955(61y) Med Rec#: ? [id number] ?Sex: ?M ? [place] [facility] [place]Ht / Wt: ??172(cm)/126(kg) Pt. Loc: ?Echo Lab ?BSA: ?2.34 Study Date: ?? 11/17/2017 ?Pt. Type: Outpatient Tape: ? Referring: JULIANA VILLAR Reading: Lalito Gallegos ([id number]) [facility] Practitioner: [employer] Advisor: Ekaterina Patel Diagnosis: *Other specified postprocedural states (Z98.89) *Presence of aortocoronary bypass graft (Z95.1) BP: ? 127/75 SUMMARY: 1. Technically limited study. 2. Status post mitral valve repair and C ABG on 10/07/17. ?? 3. The left ventricular chamber size is normal. ??There is mild septal hypertrophy of the left ventricle. ??Ángela bal left ventricular systolic function is mildly reduced. ??Ejection f raction is estimated to be 45%. There are left ventricular segmental wal l motion abnormalities present, as shown in the diagram below. 4. The right ventricle is normal in size . ??Right ventricular global systolic function is normal. ??Pulmonary artery hypertension could not be assessed due to inadequate tricuspid reg urgitation jet. 5. Status-post placement of a mitral kristofer ve ring. ??There is trace mitral regurgitation present. ??The mean gradie nt across the mitral valve is 4 mmHg @ 64 bpm. 6. See remainder of report for additiona l findings. Findings ? : Study Quality: ? Technically limited Left Ventricle: ? The left ventricul ar chamber size is normal. ?There is mild septal hypertrophy o f the left ventricle. ?Global left ventricular systolic f unction is mildly reduced. Ejection fraction is estimated to be 45% . ?The quantitative left ventricular ejection fraction by biplane Segovia's method is 40%. ?There are left ventricular segment al wall motion abnormalities present, as shown in the diagram below. ?Post-cardiotomy septal wall motion is present. ?Assessment of diastolic function i s indeterminate. ?Left sided filling pressure could not be assessed by Doppler. ?The ??mid anterior, and ??mid infe rolateral wall segments are hypokinetic (score 2). ?The ??basal inferior, mid anterola teral, and ??mid inferior wall segments are akinetic (score 3). ?Overall wallmotion score index is ??1.50 ?No thrombus is visualized within t he left ventricle. Left Atrium: ? The left atrium is se verely dilated.(53 ml/m2) ?The inter-atrial septum appears li pomatous. Right Ventricle: ? The right ventric le is normal in size. ?Right ventricular global systolic function is normal. ?Pulmonary artery hypertension coul d not be assessed due to inadequate tricuspid regurgitation jet. ?The estimated right atrial pressur e is 3 mmHg. Right Atrium: ? The right atrium is normal in size. Aortic Valve: ? The aortic valve is trileaflet. The leaflets are thin with normal excursion. There is no aorti c stenosis or regurgitation present. Mitral Valve: ? The mean gradient ac ross the mitral valve is 4 mmHg.@ 64 bpm ?There is trace mitral regurgitatio n present. ?Status-post placement of a mitral valve ring. Tricuspid Valve: ? The tricuspid kristofer ve leaflets are morphologically normal. ?There is trace tricuspid regurgita tion present. Pulmonic Valve: ? The pulmonic valve is probably normal. ?There is no pulmonic stenosis pres ent. ?There is no evidence of pulmonic r egurgitation. Pericardium: ? There is no pericardi al effusion. ?A pericardial fat pad is visualize d. Aorta: ? The aortic root is normal i n size. ?The ascending aorta is normal in s ize. Pulmonary Artery: ? The main pulmona ry artery is probably normal in size. Venous: ? The inferior vena cava oniel ears normal in size. ?There is a greater than 50% respir atory change in the inferior vena cava dimension. Misc: ? See remainder of report for additional findings. ?Two-dimensional echo, spectral Dop pler and color Doppler performed. ?Definity contrast (one 1.5 ml vial )was used to enhance endocardial definition. Excess contrast was discarde d. Chambers 2D ?Value ?Units (Range) ? IVSd (2D) ? 1.3 ?cm ? LVPWd (2D) ?1.1 ?cm ? IVS:LVPW ratio (2D) 1.3 ?ratio ? RWT (2D) ?0.4 ?ratio ? RWT PW (2D) ? 0.4 ?ratio ? LVIDd (2D) ?5.5 ?cm ? LVIDs (2D) ?4.1 ?cm ? LVIDd (2D) index ?2.4 ?cm/m2 ? LVIDs (2D) index ?1.8 ?cm/m2 ? LV FS (2D) ?25 ? % ? EF Teichholz (2D) ?? 50 ? % ? Ao root diameter (2D3 ?cm (2.1 - 3.6) ? Ascending Ao ?3.5 ?cm (2 - 3.5) ? Volumes/Mass ?Value ?Units (Range) ? LA Area 4 CH ?35 ? cm2 (<21) ? RA AREA 4CH ? 17 ? cm2 ? LA ESV BP (MOD) inde53 ? ml/m2 ? LV ESV SP 4CH (MOD) 87.6 ? ml ? LV ESV SP 2CH (MOD) 94.5 ? ml ? LV EDV BP ? 155 ?ml ? LV ESV BP ? 92.6 ? ml ? LV EDV BP index ? 66.2 ? ml/m2 ? LV ESV BP index ? 39.6 ? ml/m2 ? BP EF (MOD) ? 40 ? % ? LV mass (2D) ?267.7 ?g ? LV mass (2D) index ??114.4 ?g/m2 ? Diastolic/Systolic Function ?Value ?Units (Range) ? MV E-wave Vmax ?1.7 ?m/sec ? MV deceleration [id number] ?msec ? MV A-wave Vmax ?0.8 ?m/sec ? MV E:A ratio ?2 ?ratio ? LV septal e' Vmax ?? 0.1 ?m/sec ? LV lateral e' Vmax ??0.1 ?m/sec ? LV average e' Vmax ??0.1 ?m/sec ? LV E:e' septal ratio32.6 ? ratio ? LV E:e' lateral rati21.8 ? ratio ? LV average E:e' rati27.7 ? ratio ? Mitral Valve ?Value ?Units (Range) ? MV Vmax ? 1.7 ?m/sec ? MV VTI ?48.8 ? cm ? MV peak gradient ?11.7 ? mmHg ? MV mean gradient ?4 ?mmHg ? MV PHT ?113 ?msec ? MVA (PHT) ? 2 ?cm2 ? Tricuspid Valve ?Value ?Units (Range) ? RAP ? 3 ?mmHg ? Wall Motion: Segment Name ?Rest ? Base-Anteroseptal ?? Normal ? Base-Anterior ? Normal ? Base-Anterolateral ??Normal ? Base-Posterolateral Normal ? Base-Inferior ? Akinetic ? Base-Inferoseptal ?? Normal ? Mid-Anteroseptal ?Normal ? Mid-Anterior ?Hypokinetic ? Mid-Anterolateral ?? Akinetic ? Mid-Posterolateral ??Hypokinetic ? Mid-Inferior ?Akinetic ? Mid-Inferoseptal ?Normal ? [place]-Septal ? Normal ? [place]-Anterior ? Normal ? [place]-Lateral ?Normal ? [place]-Inferior ? Normal ? [place]-Tip ?Normal ? This report has been electronically sign ed by: _ Lalito Gallegos MD ? 11/17/2017 1 4:26:29 Images reviewed and interpretation [facility] Cardiac Ultrasound Laboratory Procedure Note Lalito Gallegos MD - 11/17/2017Format ting of this note might be different from the original. Procedure: Transthoracic Echocardiogram Patient: MATILDA DACOSTA(Age): [age]y) Med Rec#: [id number] Sex: M [place] [facility] [place]t / Wt: 172(cm)/126(kg) Pt. Loc: Echo Lab BSA: 2.34 Study Date: 11/17/2017 Pt. Type: Outpati ent Tape: Referring: JULIANA VILLAR Reading: Lalito Gallegos ([id number]) [facility] Practitioner: [employer] Advisor: Ekaterina Patel Diagnosis: *Other specified postprocedural states (Z98.89) *Presence of aortocoronary bypass graft (Z95.1) BP: 127/75 SUMMARY: 1. Technically limited study. 2. Status post mitral valve repair and C ABG on 10/07/17. 3. The left ventricular chamber size is normal. There is mild septal hypertrophy of the left ventricle. Globa l left ventricular systolic function is mildly reduced. Ejection fra ction is estimated to be 45%. There are left ventricular segmental wal l motion abnormalities present, as shown in the diagram below. 4. The right ventricle is normal in size . Right ventricular global systolic function is normal. Pulmonary a rtery hypertension could not be assessed due to inadequate tricuspid reg urgitation jet. 5. Status-post placement of a mitral kristofer ve ring. There is trace mitral regurgitation present. The mean gradient across the mitral valve is 4 mmHg @ 64 bpm. 6. See remainder of report for additiona l findings. Findings : Study Quality: Technically limited Left Ventricle: The left ventricular deisi mber size is normal. There is mild septal hypertrophy of the left ventricle. Global left ventricular systolic functi on is mildly reduced. Ejection fraction is estimated to be 45% . The quantitative left ventricular eject ion fraction by biplane Segovia's method is 40%. There are left ventricular segmental wa ll motion abnormalities present, as shown in the diagram below. Post-cardiotomy septal wall motion is p resent. Assessment of diastolic function is ind eterminate. Left sided filling pressure could not b e assessed by Doppler. The mid anterior, and mid inferolateral wall segments are hypokinetic (score 2). The basal inferior, mid anterolateral, and mid inferior wall segments are akinetic (score 3). Overall wallmotion score index is 1.50 No thrombus is visualized within the le ft ventricle. Left Atrium: The left atrium is severely dilated.(53 ml/m2) The inter-atrial septum appears lipomat ous. Right Ventricle: The right ventricle is normal in size. Right ventricular global systolic funct ion is normal. Pulmonary artery hypertension could not be assessed due to inadequate tricuspid regurgitation jet. The estimated right atrial pressure is 3 mmHg. Right Atrium: The right atrium is normal in size. Aortic Valve: The aortic valve is trilea flet. The leaflets are thin with normal excursion. There is no aorti c stenosis or regurgitation present. Mitral Valve: The mean gradient across t he mitral valve is 4 mmHg.@ 64 bpm There is trace mitral regurgitation pre sent. Status-post placement of a mitral valve ring. Tricuspid Valve: The tricuspid valve chidi flets are morphologically normal. There is trace tricuspid regurgitation present. Pulmonic Valve: The pulmonic valve is pr obably normal. There is no pulmonic stenosis present. There is no evidence of pulmonic regurg itation. Pericardium: There is no pericardial eff usion. A pericardial fat pad is visualized. Aorta: The aortic root is normal in size . The ascending aorta is normal in size. Pulmonary Artery: The main pulmonary art aramis is probably normal in size. Venous: The inferior vena cava appears n ormal in size. There is a greater than 50% respiratory change in the inferior vena cava dimension. Misc: See remainder of report for additi onal findings. Two-dimensional echo, spectral Doppler and color Doppler performed. Definity contrast (one 1.5 ml vial)was used to enhance endocardial definition. Excess contrast was discarde d. Chambers 2D Value Units (Range) IVSd (2D) 1.3 cm LVPWd (2D) 1.1 cm IVS:LVPW ratio (2D) 1.3 ratio RWT (2D) 0.4 ratio RWT PW (2D) 0.4 ratio LVIDd (2D) 5.5 cm LVIDs (2D) 4.1 cm LVIDd (2D) index 2.4 cm/m2 LVIDs (2D) index 1.8 cm/m2 LV FS (2D) 25 % EF Teichholz (2D) 50 % Ao root diameter (2D3 cm (2.1 - 3.6) Ascending Ao 3.5 cm (2 - 3.5) Volumes/Mass Value Units (Range) LA Area 4 CH 35 cm2 (<21) RA AREA 4CH 17 cm2 LA ESV BP (MOD) inde53 ml/m2 LV ESV SP 4CH (MOD) 87.6 ml LV ESV SP 2CH (MOD) 94.5 ml LV EDV BP 155 ml LV ESV BP 92.6 ml LV EDV BP index 66.2 ml/m2 LV ESV BP index 39.6 ml/m2 BP EF (MOD) 40 % LV mass (2D) 267.7 g LV mass (2D) index 114.4 g/m2 Diastolic/Systolic Function Value Units (Range) MV E-wave Vmax 1.7 m/sec MV deceleration [id number] msec MV A-wave Vmax 0.8 m/sec MV E:A ratio 2 ratio LV septal e' Vmax 0.1 m/sec LV lateral e' Vmax 0.1 m/sec LV average e' Vmax 0.1 m/sec LV E:e' septal ratio32.6 ratio LV E:e' lateral rati21.8 ratio LV average E:e' rati27.7 ratio Mitral Valve Value Units (Range) MV Vmax 1.7 m/sec MV VTI 48.8 cm MV peak gradient 11.7 mmHg MV mean gradient 4 mmHg MV PHT 113 msec MVA (PHT) 2 cm2 Tricuspid Valve Value Units (Range) RAP 3 mmHg Wall Motion: Segment Name Rest Base-Anteroseptal Normal Base-Anterior Normal Base-Anterolateral Normal Base-Posterolateral Normal Base-Inferior Akinetic Base-Inferoseptal Normal Mid-Anteroseptal Normal Mid-Anterior Hypokinetic Mid-Anterolateral Akinetic Mid-Posterolateral Hypokinetic Mid-Inferior Akinetic Mid-Inferoseptal Normal Salem-Septal Normal Salem-Anterior Normal [place]-Lateral Normal [place]-Inferior Normal Salem-Tip Normal This report has been electronically sign ed by: _ Lalito Gallegos MD 11/17/2017 14:26:2 9 Images reviewed and interpretation verif ied [facility] Cardiac Ultrasound Laboratory Juliana [place]ork AEROTRIANGULATION SPECIALIST ECHO ORDERABLES documented in this encounter Visit Diagnoses Diagnosis S/P MVR (mitral valve repair) Other postprocedural status S/P CABG x 2 Postsurgical aortocoronary bypass status documented in this encounter Administered Medications Inactive Administered Medications - up to 3 most recent administrations Medication Order MAR Action Action Date Dose Rate Site perflutren lipid microspheres Given 11/17/2017 1:30 PM EDT 0.8 m Ls (DEFINITY) injection 0.8 mL 0.8 mL (rounded from 0.75 mL), Intravenous, ONCE PRN, 1 dose, Starting on Nerissa 11/17/17 at 1404, Until Nerissa 11/17/17 at 1330, Other, for enhancement of sub-optimal echo images, Echo Lab (Intra-Procedure), Routine documented in this encounter Care Teams Interchange Agent Relationship Specialty Start Date End Date Es Clinton PA PCP - General Family Medicine 08/09/17 10/09/19 [address] [place] [address] documented as of this encounter
--- OUTSIDE RECORDS SUMMARY | 2021-10-28 14:11 | XMS_ITS | Encounter Summary ---
:1955 Author Organization [facility] [place] [address] Care Team Providers Name Role Phone Es Clinton Primary Care Provider Encounter Details Date Type Department Care Team Description 03/13/2019 Hospital Encounter XRay at [facility] Az Machado Coronary artery disease, ang solis presence unspecified, unspecified vessel or lesion type, unspecified whether [place] or transplanted heart; [address] [facility] [address] Erika MD MICHELLE (obstructive sleep apnea); [place], [place] [facility] (shortness of breath) [phone] CENTER [phone] [place] [address] Social History Tobacco Use Types Packs/Day Years [...] [facility] NEPH[facility]OLOGY [place], [place] [address] (Wo rk) documented as of this encounter Procedures Procedure Name Priority Date/Time Associated Diagnosis Comme nts XR CHEST PA AND Routine 03/13/2019 10:07 Coronary artery Resul ts for this LATERAL AM EST disease, angina procedure ar e in presence unspecified, the re sults unspecified vessel or sectio n. lesion type, unspecified whether [place] or transplanted hea rt MICHELLE (obstructive sleep apnea) SOB (shortness of breath) documented in this [...] is no acute osseous abnormality. Procedure Note Kaitlyn Gamino MD - 03/13/2019Formatt ing of this [...] report, please contact e number below. Az Machdao MD IMG DX ORDERABLES documented in this encounter Visit Diagnoses Diagnosis Coronary artery disease, angina presence unspecified, unspecified vessel or lesion type, unspecified whether [place] or [place] heart MICHELLE (obstructive sleep apnea) Obstructive sleep apnea (adult) (pediatr ic) SOB (shortness of breath) Shortness of breath documented in this encounter Care Teams Maintainer Plant Relationship Specialty Start Date End Date Es Clinton PA PCP - General Family Medicine 08/09/17 10/09/19 [address] [place] [address] documented as of this encounter
--- OUTSIDE RECORDS SUMMARY | 2021-10-28 14:11 | XMS_ITS | Encounter Summary ---
:1955 Author Organization [facility] [place] [address] Care Team Providers Name Role Phone Es Clinton Primary Care Provider Reason for Visit Reason Comments Coronary Artery Disease Shortness of Breath Hypertension Encounter Details Date Type Department Care Team Description 04/10/2019 Office Visit Cardiology at [facility] Shalom Grant, Paroxysmal atrial fibrillati on; [facility] NORBERTO Coronary artery disease, angina presence unspecified, unspecified vessel or lesion type, unspecified whether ewiiaapaayp or transplanted heart; Drive [facility] Nonrheumatic mitral valve re gurgitation; [place], [place] MICHELLE (obstructive sleep apnea); [id number] [place] [address] Palpitations; [phone] SOB (shortness of breath) (Work) Social History [...] Sign Reading Time Taken Comments Blood Pressure 124/66 04/10/2019 2:01 PM EST Pulse 71 04/10/2019 2:01 PM EST Temperature - - Respiratory Rate - - Oxygen Saturation 94% 04/10/2019 2:01 PM EST Inhaled Oxygen Concentration - - Weight 139.2 kg (306 lb 12.8 oz) 04/10/2019 2:01 PM EST Height 175.3 cm (5' 9) 04/10/2019 2:01 PM EST Body Mass Index 45.31 04/10/2019 2:01 PM EST documented in this encounter Progress Notes Shalom Grant PA - 04/10/2019 2:20 PM EST [facility] Interventional Cardiology Reason for Visit: follow up for dyspnea and other cardiovascular concerns as detailed below Primary provider: NORBERTO Cage [address] [place] [address] ?? Problem List: CAD: remote MO, CABG 2018 (SVG-OM, SVG-rpda) with MV repair Mitral Regurgitation: s/p 30mm physio ring with mitral valve repair MICHELLE A fib, post operative 2018 onset, paroxysmal. On [facility], [facility] 2018 Obesity Patient Active Problem List Diagnosis ??? [...] Miner is a 63 y.o. male who is seen in cardiology clinic to discuss management of his recurrent dyspnea and his other cardiovascular concerns. His past medical history is notable for paroxysms of atrial fibrillation with a history of RVR whichbegan samara-operatively dating back to his 2018 mitral valve repair and concomitant CABG surgery. Also history of obesity, MICHELLE, hypertension. He was last seen 6 weeks ago at which point he was being evaluated for recurring exertional dyspnea.Since, he had a normal chest x ray showing no acute cardiopulmonary process. He also underwent a pharmacological stress test with echo which did not show any evidence of ischemia at a submaximal level of stress (near target HR, but not diagnostic). His furosemide was increased for symptomatic control. He presents now in follow up. He tells me his breathing has improved [...] at night which has helped his breathing. He started weight watchers recently. He is down 10 pounds. He continues on eliquis for stroke prevention; he denies any bleeding trouble or hematuria. He reports very mild but improved peripheral edema to bilateral ankles which is worse in AM and improves at night. He has worn compression stockings sometimes. His increase in lasix has improved. Ex smoker. +CAD ?? Cards meds: Furosemide 40mg daily Metop 50 BID amio 100 apixaban Asa 81 atorva 40 ALLERGIES: No Known Allergies ?? MEDICATIONS: ?? Current Outpatient Medications: ??? buPROPion SR (WELLBUTRIN SR) 150 mg tablet sustained-release 12 hr, 150 mg daily., Disp: , Rfl: ??? furosemide (LASIX) 20 mg Tablet, 40 mg daily. 1-2 tablets, Disp: , Rfl: ??? docusate sodium (COLACE) [...] No orthopnea or PND. No syncope RESPIRATORY: mild dyspnea with heavy exertion. Improved from previous. no cough or sputum. No hemoptysis GASTROINTESTINAL: [...] 3 obese male in no acute distress who easily ambulates around the exam room and can relay the details of his medical care clearly. Vitals Office Visit from 04/10/2019 in Cardiology at [facility] Weight (!) 139.2 kg (306 lb 12.8 oz) Height 175.3 cm (5' 9) BSA (Calculated - sq m) 2.6 sq meters BMI (Calculated) 45.3 Heart Rate 71 BP 124/66 SpO2 94 % Eyes: No scleral icterus or pale conjunctiva; no corneal arcus Ears, Nose, mouth, throat: No sinus tenderness; moist oral mucosa; no epistaxis; no visible thyromegaly Respiratory: Clear to auscultation bilaterally with good air entry bilaterally. Lungs sound clear. GI: No abdominal pain; + bowel sounds; no rigidity or guarding. Obese/rotund. Cardiovascular: The heart rate is regular. S1 and S2 are normal and unobscured. There are no audiblemurmurs. Carotid upstroke is normal with no audible carotid bruits MSK: No joint deformity; No evidence of tendon xanthomas Skin: No visible rashes or bruises Neuro: Non-focal. Moves all extremities without limitation. CN nerves not examined. Psych: Mood appropriate Extremity: RLE: Trace peripheral edema to mid ace LLE: Trace edema to shins RUE: 2+ radial pulse LUE: 2+ radial pulse ?? DIAGNOSTIC TESTS: ?? DSE 03/13/2019 SUMMARY: ?? 1. Dobutamine stress echo [...] IMPRESSION No acute cardiopulmonary process is identified. A/P: Cristian Miner is a 63 y.o. male with a history of coronary disease, paroxysmal atrial fibrillation, obstructive sleep apnea and recurrent dyspnea who presents in follow up. His symptoms have improved following increased dosing of lasix coupled with more activity and nearly 10 pounds weight loss. Heis hemodynamically stable and asymptomatic. His coronary disease is stable. He had a recent stress echo which was negative for ischemia at that threshold (did barely miss the target HR). He has no chest pain, CCS class 0. He is on appropriate medical therapy which we will continue. A fib, perioperative, paroxysmal. None seen on zio last year. On amio 100mg daily and metoprolol forrate control. No signs/symptoms of stroke. No bleeding issues. No symptoms. Continue current management. ?? I think that his dyspnea is multifactorial [...] medications or diagnostictests that should be completed. ?? Increase exercise with goal of weight loss Follow up pulmonology Continue current medications Follow up 6 months. NORBERTO Collier 04/10/2019 2:14 PM [facility] Pager [phone] documented in this encounter Plan of Treatment Upcoming Encounters Date Type Specialty Care Team Description 11/11/2021 Office Visit Nephrology NadiaJonn schreiber MD [facility] NEPHROLOGY DEPT [place], [place] [address] (Wo rk) documented as of this encounter Visit Diagnoses Diagnosis Paroxysmal atrial fibrillation Atrial fibrillation Coronary artery disease, angina presence unspecified, unspecified vessel or lesion type, unspecified whether ewiiaapaayp or verde splanted heart Nonrheumatic mitral valve regurgitation MICHELLE (obstructive sleep apnea) Obstructive sleep apnea (adult) (pediatr ic) Palpitations SOB (shortness of breath) Shortness of breath documented in this encounter Care Teams Respiratory Care Practitioner Relationship Specialty Start Date End Date Es Clinton PA PCP - General Family Medicine 08/09/17 10/09/19 [address] [place] [address] documented as of this encounter
--- OUTSIDE RECORDS SUMMARY | 2021-10-28 14:11 | XMS_ITS | Encounter Summary ---
:1955 Author Organization [facility] [place] [address] Care Team Providers Name Role Phone Unknown Primary Care Provider Unavailable Encounter Details Date Type Department Care Team Description 11/07/2019 Telephone Pulmonology at [facility] [place] [address] Social History Tobacco Use Types Packs/Day [...] this encounter Miscellaneous Notes Telephone Encounter - Daniel Horne - 11/07/2019 3:03 PM EDT LMOAM X1 to reschedule f/u appointment with Dr. Phillip. documented in this encounter Plan of Treatment Upcoming Encounters Date Type Specialty Care Team Description 11/11/2021 Office Visit Nephrology Jonn Zuniga MD [facility] NEPHROLOGY DEPT [place], [place] [address] (Wo rk) documented as of this encounter Visit Diagnoses Not on filedocumented in this encounter Care Teams Medical Lab Assistant Relationship Specialty Start Date End Date Unknown PCP - General 10/10/19 11/26/19 None documented as of this encounter
--- OUTSIDE RECORDS SUMMARY | 2021-10-28 14:11 | XMS_ITS | Encounter Summary ---
:1955 Author Organization [facility] [place] [address] Care Team Providers Name Role Phone Es Clinton Primary Care Provider Encounter Details Date Type Department Care Team Description 06/26/2019 Telephone Pulmonology at [facility] [place] [address] Social History Tobacco Use Types Packs/Day [...] Telephone Encounter - Amy Varela LNA - 06/26/2019 1:51 PM EDT WILBETR for pt to call us back re appts on 07/[address] Palacios. Cancelled pft and need to offer telehealth with new provider. documented in this encounter Plan of Treatment Upcoming Encounters Date Type Specialty Care Team Description 11/11/2021 Office Visit Nephrology Jonn Zuniga MD [facility] [place], [place] [address] (Wo rk) documented as of this encounter Visit Diagnoses Not on filedocumented in this encounter Care Teams Business Objects Developer Relationship Specialty Start Date End Date Es Clinton PA PCP - General Family Medicine 08/09/17 10/09/19 [address] [place] [address] documented as of this encounter
--- OUTSIDE RECORDS SUMMARY | 2021-10-28 14:11 | XMS_ITS | Encounter Summary ---
:1955 Author Organization [facility] [place] [address] Care Team Providers Name Role Phone Es Clinton Primary Care Provider Encounter Details Date Type Department Care Team Description 09/28/2019 Telephone Cardiology at [facility] Awa Parmar, [place] [address] Social History Tobacco Use Types Packs/Day [...] 11/11/2021 Office Visit Nephrology Jonn Zuniga MD [facility] NEPHROLOGY DEPT [place], [place] [address] (Wo rk) documented as of this encounter Visit Diagnoses Not on filedocumented in this encounter Care Teams Candle Molder Relationship Specialty Start Date End Date Es Clinton PA PCP - General Family Medicine 08/09/17 10/09/19 [address] [place] [address] documented as of this encounter
--- OUTSIDE RECORDS SUMMARY | 2021-10-28 14:11 | XMS_ITS | Encounter Summary ---
:1955 Author Organization [facility] [place] [address] Care Team Providers Name Role Phone Es Clinton Primary Care Provider Encounter Details Date Type Department Care Team Description 04/19/2019 Telephone Pulmonology at [facility] Luz [place] [address] Social History Tobacco Use Types Packs/Day [...] 11/11/2021 Office Visit Nephrology Jonn Zuniga MD [facility] NEPHROLOGY DEPT [place], [place] [address] (Wo rk) documented as of this encounter Visit Diagnoses Not on filedocumented in this encounter Care Teams Social Work Case Manager Relationship Specialty Start Date End Date Es Clinton PA PCP - General Family Medicine 08/09/17 10/09/19 [address] [place] [address] documented as of this encounter
--- OUTSIDE RECORDS SUMMARY | 2021-10-28 14:11 | XMS_ITS | Encounter Summary ---
:1955 Author Organization [facility] [place] [address] Care Team Providers Name Role Phone Es Clinton Primary Care Provider Encounter Details Date Type Department Care Team Description 09/25/2019 Telephone Pulmonology at [facility] [place] [address] Social History Tobacco Use Types Packs/Day [...] Telephone Encounter - Amy Varela LNA - 09/25/2019 4:27 PM EDT Per message from Gina Fitzgerald, changed pts appt to phone visit. documented in this encounter Plan of Treatment Upcoming Encounters Date Type Specialty Care Team Description 11/11/2021 Office Visit Nephrology Jonn Zuniga MD [facility] NEPHROLOGY [place], [place] [address] (Wo rk) documented as of this encounter Visit Diagnoses Not on filedocumented in this encounter Care Teams Automation And Controls Instructor Relationship Specialty Start Date End Date Es Clinton PA PCP - General Family Medicine 08/09/17 10/09/19 [address] [place] [address] documented as of this encounter
--- OUTSIDE RECORDS SUMMARY | 2021-10-28 14:11 | XMS_ITS | Encounter Summary ---
:1955 Author Organization [facility] [place] [address] Care Team Providers Name Role Phone Es Clinton Primary Care Provider Encounter Details Date Type Department Care Team Description 08/30/2019 Telephone Pulmonology at [facility] Luz Marina Muñ[place] [address] Social History Tobacco Use Types Packs/Day [...] Zuniga MD [facility] NEPHROLOGY DEPT [place], [place] [address] (Wo rk) documented as of this encounter Visit Diagnoses Not on filedocumented in this encounter Care Teams Assembler Golf Wood Head Relationship Specialty Start Date End Date Es Clinton PA PCP - General Family Medicine 08/09/17 10/09/19 [address] [place] [address] documented as of this encounter
--- OUTSIDE RECORDS SUMMARY | 2021-10-28 14:11 | XMS_ITS | Encounter Summary ---
:1955 Author Organization [facility] [place] [address] Care Team Providers Name Role Phone Es Clinton Primary Care Provider Encounter Details Date Type Department Care Team Description 03/22/2019 Telephone Cardiology at [facility] Brian Cordero, [place] [address] Social History Tobacco Use Types Packs/Day [...] Telephone Encounter - Brian Cordero RN - 03/22/2019 1:43 PM EST Successful connection with patient and his by speaker phone. Message from Mr. Grant relayed (verbatim). Patient voiced appreciation for follow up. Noted that the increase in his daily Lasix (from 20 mg to now 40 mg daily) has improved his dyspnea on exertion. Feeling well overall. Agreeable to follow up with [facility] Pulmonary. No contact yet from Pulmonary Scheduling; requests advocacy call today. Call placed to 5 C Pulmonary Scheduling ([phone]). Pleasant connection with Lien. Referral noted, andconfirmed. Awaiting Provider direction/ assignment at present (in process). Note routed to Mr. Grant for his expert oversight. Next office visit with Mr. Grant scheduled for 04/10/2019. Oliverio Cordero RNapplied statistician Team Nurse [facility] Ambulatory Cardiology Telephone Encounter - Brian Cordero RN - 03/22/2019 10:51 AM EST Images from the original note were not included. Call placed to Mr. Cleveland. Unsuccessful in personal connection. Detailed message left on his number identified cell, seeking return call. Direct contact information for Interventional RN provided. Planned follow up (as below): Dallas Grant, Brian Meyers, RN ?? Hi Oliverio, Just a heads up. I left a message with Mr Cristian [place] to discuss recent test results, as he did not answer, and I askedhim to call back. Non-urgent. He was dyspneic. ??He got a Normal chest x ray. ?? He got a stress test which officially indeterminate (not enough HR), but no evidence of problems at that level of stress. ?? I just wanted to see how he was doing. I did send him results in letter. Did he see pulm yet? Thanks! dallas Cordero RN Interventional Team Nurse [facility] Ambulatory Cardiology documented in this encounter Plan of Treatment Upcoming Encounters Date Type Specialty Care Team Description 11/11/2021 Office Visit NephJonn Hall MD [facility] NEPHROLOGY [place], [place] [address] (Wo rk) documented as of this encounter Visit Diagnoses Not on filedocumented in this encounter Care Teams Detonator Maker Relationship Specialty Start Date End Date Es Clinton PA PCP - General Family Medicine 08/09/17 10/09/19 [address] [place] [address] documented as of this encounter
--- OUTSIDE RECORDS SUMMARY | 2021-10-28 14:12 | XMS_ITS | Encounter Summary ---
:1955 Author Organization [place] [address] Care Team Providers Name Role Phone Es Clinton Primary Care Provider Reason for Referral Diagnostic Test (Routine) - Closed Specialty Diagnoses / Procedures Referred By Contact Refer red To Contact Cardiology Diagnoses S/P MVR (mitral valve repair) S/P CABG x 2 Hailee Aguilar APRN [facility] Non-Inv Card Lab Procedures Echocardiogram Transthoracic(Leb) [facility] [address] [place] [address] [place] [address] Referral ID Status Reason Start Date Expiration Date Visits V isits Requested Authorized [id number] Closed Specialty 11/08/2017 02/06/2018 1 1 Service Requested Consultation (Routine) - Closed Specialty Diagnoses / Referred By Contact Referred To Contact Procedures Cardiac Rehabilitation Diagnoses S/P CABG x 2 Juan Alberto Dunlap, Cardiac Rehab, [address] [place] CARDIOTHORACIC [address] [place] [address] Referral ID Status Reason Start Date Expiration Date Visits V isits Requested Authorized [id number] Closed Consult, 10/18/2017 04/16/2018 36 36 Test & Treat Reason for Visit Auth/Cert Specialty Diagnoses / Procedures Referred By Contact Refer red To Contact Diagnoses CAD (coronary artery disease) CAD, MR Procedures PRO CABG, ARTERIAL, SINGLE PRO CABG, ARTERY-VEIN, SINGLE PRO ENDOSCOPY W/VIDEO-ASST VEIN HARVEST, CABG PRO MITRALPLASTY W PROSTHETIC RING @CABG, USING ARTERIAL GRAFT;SINGLE ARTERIAL GRAFT (WRVU 33.75) @CABG, VENOUS & ARTERIAL GRA FT;SINGLE VEIN GRAFT (WRVU 3.61) ENDOSCOPIC HARVEST VEIN(S) FOR CABG (WRVU 0.31) @VALVULOPLASTY, MITRAL VALVE, W\CPB; W\PROSTHETIC RING (WRVU 43.28) Referral ID Status Reason Start Date Expiration Date Visits Requ ested Visits Authorized [id number] 1 1 Encounter Details Date Type Department Care Team Description 10/07/2017 - Hospital Encounter Cardiac Special Karie, S/P MV R (mitral valve repair); 10/18/2017 Care Unit Petra Moralez MD S/P CABG x 2; [facility] atrial fibrillation [facility] [address] [place] [id number] [phone] Social History Tobacco Use Types Packs/Day Years Used Date Former Smoker Quit: 08/16/18 96 Smokeless Tobacco: Never Used Alcohol Use Standard Drinks/Week Comments Yes 0 (1 standard drink = 0.6 oz [...] Sign Reading Time Taken Comments Blood Pressure 127/67 10/18/2017 7:50 AM EDT Pulse 56 10/18/2017 7:50 AM EDT Temperature 37 ??C (98.6 ??F) 10/18/2017 8:00 AM EDT Respiratory Rate 16 10/18/2017 8:00 AM EDT Oxygen Saturation 96% 10/18/2017 7:50 AM EDT Inhaled Oxygen Concentration - - Weight 129.7 kg (285 lb 15 oz) 10/18/2017 5:10 AM EDT Height 172 cm (5' 7.72) 10/07/2017 7:11 AM EDT Body Mass Index 43.84 10/07/2017 7:11 AM EDT documented in this encounter Discharge Summaries Hailee Aguilar APRN - 10/18/2017 8:41 AM EDT Inpatient - Discharge Summary Patient Name: Cristian Miner Patient Age: 61 y.o. Birthdate: 1955 Language: Cypriot Race: White Ethnicity: Not nor Admit Date: 10/07/2017 Discharge Date: 10/18/2017 Attending Physician: Juan Alberto Dunlap MD Follow-up Recommendations for Providers: Please continue routine management of cardiovascular risk factors including blood pressure, lipids, glucose, etc. Please note any changes to medications. Patient to follow-up with PCP, NORBERTO Cage, in 1-2 weeks. Patient to follow-up with Director Of Women'S Services in two weeks. (FYI: Had seen Dr. Jennifer Fortune inpatient once, strongly requests new adaptive physical education specialist at [facility] system). Patient to follow-up with Cardiac Surgery, Dr. Juan Alberto Dunlap, in ~ 4 weeks with CXR, EKG, and Echo. Inpatient Provider Contact Information: [facility] Section of Cardiac Surgery [facility] [address] FAX [phone] Discharge Diagnoses (Hospital Problems) Primary Diagnoses: Coronary artery disease of [place] coronary artery s/p CABGx2 Severe mitral regurgitaiton s/p MVRepair Secondary Diagnoses: Paroxysmal atrial fibrillation s/p DCCV Other Diagnoses (Chronic Problems): Active Non-Hospital Problems Diagnosis ??? Morbid obesity ??? Atrial fibrillation ??? MICHELLE (obstructive sleep apnea) ??? SOB (shortness of breath) ??? Palpitations ??? Mitral regurgitation Discharged to: Patient discharged to home Functional and Cognitive Status: Stable Discharge Conditions/Prognosis: Stable Past Medical History: Diagnosis Date ??? CAD (coronary artery disease) angioplasty 1980s Past Surgical History: Procedure Laterality Date ??? KNEE ARTHROSCOPY ??? LAPAROTOMY diverticula ? ? PRG JAYLON REAL TIME IMG 2D W PRB IMG ACQUIS I&R N/A 09/15/2017 TRANSESOPHAGEAL ECHOCARDIOGRAM (WRVU 2.55) performed by Td Ayala MD at [facility] OR ??? PRO CABG, VEIN, TWO N/A 10/07/2017 @CABG, VEIN ONLY;TWO CORONARY VENOUS GRAFTS (WRVU 38.45) performed by Juan Alberto Dunlap MD at [facility] OR ??? PRO CARDIOVERSION N/A 10/12/2017 CARDIOVERSION-ELECTIVE (WRVU 2.25) performed by Romel Call PA at [facility] OR ??? PRO ENDOSCOPY W/VIDEO-ASST VEIN HARVEST, CABG N/A 10/07/2017 ENDOSCOPIC HARVEST VEIN(S) FOR CABG (WRVU 0.31) performed by Juan Alberto Dunlap MD at [facility] OR ??? PRO MITRALPLASTY W PROSTHETIC RING N/A 10/07/2017 @VALVULOPLASTY, MITRAL VALVE, W\CPB; W\PROSTHETIC RING (WRVU 43.28) performed by Juan Alberto Dunlap MD at [facility] OR Prior To Admission Medications Prescriptions Prior to Admission Medication Sig Dispense Refill Last Dose ??? chlorhexidine (HIBICLENS) 4 % Liquid Apply topically daily as needed. Shower from head to toe with Chlorhexidine the night before surgery . 120 mL 0 10/06/2017 at Unknown time ??? apixaban (ELIQUIS) 5 mg Tablet Take 5 mg by mouth 2 times daily. Past Week at Unknown time ??? furosemide (LASIX) 40 mg Tablet Take 20 mg by mouth 2 times daily. 10/06/2017 at Unknown time ??? metoprolol succinate (TOPROL-XL) 25 mg Tablet Sustained Release 24 hr Take 25 mg by mouth daily.Indications: take 1.5 tablets daily 10/07/2017 at 0500 ??? albuterol 90 mcg/actuation HFA Aerosol Inhaler Inhale 2 puffs into the lungs every 4 hours as needed for Wheezing. Use with spacer 10/06/2017 at Unknown time ??? aspirin 81 mg Tablet, Delayed Release (E.C.) Take 81 mg by mouth daily. Past Week at Unknown time ??? atorvastatin (LIPITOR) 40 mg Tablet Take 40 mg by mouth daily. 10/06/2017 at Unknown time ??? tamsulosin (FLOMAX) 0.4 mg Capsule, Sust. Release 24 hr Take 0.4 mg by mouth daily. 10/06/2017 atUnknown time ??? nitroGLYcerin (NITROSTAT) 0.4 mg Tablet, Sublingual Place 0.4 mg under the tongue every 5 minutes as needed for Chest pain. Unknown at Unknown time Updated Allergies/ADRs: No Known Allergies History of Presentation: Mr. Miner is a 61-year-old male with known atherosclerotic coronary artery disease having suffered aMI in the past. This was managed with primary angioplasty. He has had recently increasingly severe exertional dyspnea and an episode of new onset atrial fibrillation. This resulted in a hospitalization during which a transthoracic echo was performed. I had an opportunity to review this echo. The windows are poor and the exact anatomy of the mitral valve is not well-defined and appears to show at least moderate if not severe mitral regurgitation. He has depressed left ventricular systolic function. He was brought back into a sinus rhythm stabilized and discharged. He ultimately underwent a cardiac cath which I also had an opportunity to review. This shows a 65% lesion of the second obtuse marginal branch and a 50% mid to distal right coronary lesion as well. His pulmonary artery pressures on that study were 43/17. His symptoms at this point are class II exertional dyspnea. His past medical history and review of systems are otherwise importantly positive for treated hypertension, he has obstructive sleep apnea, he has a BMI of 40. He has obstructive sleep apnea, he does not have diabetes, he hashad no known previous CVA or TIA, he has no known renal or hepatic insufficiency. 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 He is undergone surgery for ruptured diverticuli. 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 He was brought to the operating room where Dr. Juan Alberto Dunlap performed a mitral valve repair and cabg x 2. He tolerated the procedure and was brought to the Cardiovascular Intensive Care Unit for recovery. He initially required the pharmacologic support of intravenous levophed, vasopressin, and epinephrine. He was extubated from the ventilator on the morning of POD1. On POD1, he developed rapid atrial fibrillation. He was started on an amiodarone bolus and a drip was initiated. He converted to NSR and then again back to atrial fibrillation with RVR on POD#3. He wascardioverted on POD#5 to NSR which was initially successful, however he returned to AF with RVR on POD#6. His beta sridhar was optimized and he was started on a dilt drip briefly for rate control but ended up self converting back to SR on POD8. He is being discharged on amiodarone 200mg daily PO x 1 month. Coumadin was started on POD1 for mitral valve repair, INR goal 2.0-3.0. He will continue this at least 2-3 months. See below for dosing instructions. All drips were weaned to off. Routine postoperative and home medications were started and a diet wasadvanced. He was started on beta blockade and this was optimized. Diuretics were started and he responded appropriately. By postoperative day # 2 he was transferred to the Intermediate Cardiac Care Unit for continued rehabilitation. All tubes, lines, and epicardial pacing wires were removed without incident. He voided normally after his Pichardo was removed. He was seen by Physical Therapy and Cardiac Rehabilitation. Sternal precaution education was provided. His discharge plan at this time is to home. The remainder of the his hospital course was uneventful and by postoperative day #11 he had met all criteria for discharge. Pain was controlled on oral medications. He had walked 5 minutes and gone up and down stairs. He was tolerating a regular diet and had a bowel movement. Vital Signs at Discharge: Last set of vitals: BP 127/67 (BP Location (NBP): Right arm) Pulse 56 Temp 37 ??C (98.6 ??F) (Oral) Resp 16 Ht 172 cm (5' 7.72) Wt 129.7 kg (285 lb 15 oz) SpO2 96% BMI 43.84 kg/m2 Patient Vitals for the past 168 hrs: Weight 10/18/17 0510 129.7 kg (285 lb 15 oz) 10/17/17 0620 130.5 kg (287 lb 11.2 oz) 10/16/17 0631 132.2 kg (291 lb 7.2 oz) 10/15/17 0700 134.1 kg (295 lb 10.2 oz) 10/14/17 0500 135.2 kg (298 lb 1 oz) 10/13/17 0405 135.7 kg (299 lb 2.6 oz) 10/12/17 0500 134.8 kg (297 lb 2.9 oz) Current weight: 129.7 kg Admit/Preop weight: 128.6 kg Pertinent physical exam findings prior to discharge: General: NAD, sitting up in chair Neuro: CN 2-12 grossly intact, nonfocal, moving all extremities. Card: RRR, SR on tele, no m/r/g Pulm: CTAB, Non-labored breathing on RA GI: Soft, non tender, non distended. +BS Ext: WWP Incisions: sternal incision, saphenectomy site CDI Important Studies and Lab Data: Lab Results Component Value Date WBC 9.3 10/11/2017 RBC 4.13 (L) 10/11/2017 HGB 12.2 (L) 10/11/2017 HCT 36.8 (L) 10/11/2017 PLATELET 141 (L) 10/11/2017 Recent Labs 10/18/17 0348 INR 2.5 Lab Results Component Value Date NA 132 (L) 10/10/2017 K 4.3 10/18/2017 CL 96 (L) 10/10/2017 CO2 25 10/10/2017 BUN 21 (H) 10/10/2017 CREATININE 0.68 (L) 10/10/2017 Pending Studies and Lab Data: none Immunizations Given this Hospitalization: There is no immunization history on file for this patient. Smoking Status at Discharge: History Smoking Status ??? Former Smoker ??? Quit date: 08/17/1995 Smokeless Tobacco ??? Never Used STS Data Medications: Pre-operative beta sridhar? Given Discharge beta sridhar? Given Discharge lipid therapy? Given Discharge anti-platelet therapy? Given Discharge Medications: Your Medications New Medications Dose Details acetaminophen 500 mg Tab Commonly known as: TYLENOL Take 2 tablets by mouth every 6 hours as needed for Pain. 1000 mg Quantity: 30 tablet Refills: 1 AMIOdarone 200 mg Tab Commonly known as: CORDARONE; PACERONE Take 1 tablet by mouth daily. 200 mg Quantity: 30 tablet Refills: 0 melatonin 3 mg Tab Take 1 tablet by mouth nightly as needed (for sleep). 3 mg Refills: 0 metoprolol tartrate 50 mg Tab Commonly known as: LOPRESSOR Take 1 tablet by mouth every 8 hours. 50 mg Quantity: 180 tablet Refills: 3 warfarin 1 mg Tab Commonly known as: COUMADIN Take 2 tablets by mouth daily. Per INR 2 mg Quantity: 100 tablet Refills: 3 Continued medications with new dosing Dose Details furosemide 20 mg Tab Commonly known as: LASIX Take 1 tablet by mouth daily. What changed: - medication strength - when to take this 20 mg Quantity: 30 tablet Refills: 3 Continued medications, unchanged Dose Details albuterol 90 mcg/actuation Hfaa Inhale 2 puffs into the lungs every 4 hours as needed for Wheezing. Use with spacer 2 puff Refills: 0 aspirin 81 mg Tbec Take 81 mg by mouth daily. 81 mg Refills: 0 atorvastatin 40 mg Tab Commonly known as: LIPITOR Take 40 mg by mouth daily. 40 mg Refills: 0 tamsulosin 0.4 mg Cap Commonly known as: FLOMAX Take 0.4 mg by mouth daily. 0.4 mg Refills: 0 STOPPED Medications chlorhexidine 4 % Liqd Commonly known as: HIBICLENS ELIQUIS 5 mg Tab Generic drug: apixaban metoprolol succinate 25 mg Tablet sr Commonly known as: TOPROL-XL NITROSTAT 0.4 mg Subl Generic drug: nitroGLYcerin Anticoagulation (???Blood Thinner?? ) Management upon Discharge: 1. Reason for anticoagulation therapy: Mitral valve repair 2. Your warfarin (Coumadin??) dosing instruction upon discharge is: (Follow this schedule below until your first INR check after discharge (usually in 2- 4 days): ??? Day of discharge (day #1): 2 mg ??? Day #2: TO BE DETERMINED BY INR 3. Follow up INR is scheduled on: Tuesday10/19/2017 4. INR Goal: 2.0-3.0 5. Expected duration of treatment: 2-3 months 6. Provider/Team responsible for ongoing outpatient anticoagulation management: ??? Provider/Team/Clinic: PCP Es Clinton @ ??? 7. If you have not received a call from your provider within 24 hrs of having your INR drawn, pleasecall your outpatient provider for further dose instructions. 8. Warfarin (Coumadin??) should be taken at the same time every day, preferably after 5:00 pm. 9. Please review your Warfarin (Coumadin??) Pack upon discharge. 10. If you will be on Warfarin (Coumadin??) indefinitely you should carry an identification card or wear a medical alert bracelet stating that you take Warfarin (Coumadin??). 11. Warfarin Education that was reviewed with you in the hospital: (please see your warfarin (Coumadin) packet for more information) ? Diet and medications can affect your INR ? Maintaining a diet with a consistent amount of vitamin K containing foods is important to keep your INR in range ? Avoid major changes in dietary habits ? Do not take or discontinue any prescription or fxgc-pme-wnftzks medications without asking your doctor or pharmacist ? Inform all your doctors, pharmacists and other healthcare providers that you take warfarin (Coumadin??) ? Warfarin (Coumadin??) increases your risk of bleeding ? If you experience any of these signs or symptoms of bleeding or blood clot please seek immediate medical attention: - increased pain, swelling or sudden shortness of breath - severe headache - dizziness - unusual bleeding or bruising - changes in urine or bowel movement color - coughing or spitting up of blood, or nosebleeds that do not stop or occur more often The following table shows your most recent INR results and Warfarin (Coumadin??) doses. Please bringthis to your first warfarin INR check appointment after discharge. Recent Labs 10/18/17 0348 10/17/17 0451 10/16/17 0451 10/15/17 0317 10/14/17 1205 10/13/17 0839 10/12/17 0518 INR 2.5 2.4 2.2 2.1 1.9 2.3 2.8 Hospital Date 10/08 10/09 10/10 10/11 10/12 10/13 10/14 10/15 10/16 10/17 Coumadin Dose 5 mg 5 mg 5 mg 1 mg 0 mg 2.5 mg 2.5 mg 2 mg 2.5 mg 2 mg Note: Patient was discharged with 1 mg tablets. Instructions Given to Patient at Discharge: General Instructions None Discharge Instructions: Call your doctor if: You have a fever of greater than 101 degrees, shaking chills, if you develop redness or drainage from your incision sites, or if you have questions. Please call your surgeon's office if you have any discharge or drainage from your chest incision. Your surgeon, Dr. Juan Alberto Dunlap and/or the Cardiac Surgery Physician Stretching Machine Tender Frame Team may be reached at . Antibiotic prophylaxis: You will need to take antibiotics prior to many invasive tests and treatments, such as dental cleaning, which should be done every 6 months. Your primary care physician or your dentist can prescribe this medication. Please refer to the card with the [place] [employer] Gu idelines for more information. You have been provided with 3 copies of this card. Keep one for your self. Give one to your primary care physician and one to your dentist. Please refer to the [place] [employer] Guidelines for more information. Good dental care is important for your overall health. We recommend waiting ~3 months before returning to your dentist except in cases of emergency. Weight: Weigh yourself daily. Please call the office if you notice increasing weight, increasing fluid retention (edema), and/or SOB. Sternal (breast bone) precautions: No lifting greater than 7-10 pounds; no pushing or pulling with upper extremities; no excessive chest stretching for the first 4 weeks. Further instructions will be given to you at your follow-up appointment. Activity level: Walk three times a day. You should continue to increase your walks by 1-2 minutes each day. It is expected that you will be walking 20-30 minutes twice a day within 3-4 weeks after discharge to home. Rest between activities and after meals. Use common sense, don't exhaust yourself. Biking: You may use a stationary bicycle whenever you are comfortable enough to permit this. Tightenthe resistance slightly. Increase the amount of time on the bicycle as you would do for your walks, a minute or two each day. No biking outside until after your return appointment with Dr. Juan Alberto Dunlap. You may use a [place] or treadmill but avoid any pulling motion with the arms. Home activities: You may do light housework, e.g. dusting, setting the table, washing dishes, preparing a meal. Light carpentry and gardening are allowed. Avoid trying to open tight jars and stuck windows. No vacuuming, mopping, raking, shoveling, digging or hoeing until after your return visit with the surgeon. Sexual activity: You may engage in sexual activity when you feel ready. Use a position that protectsyour sternum (breastbone). Do not have your partner lie on your chest. Stairs: There are no restrictions on stair climbing. Use common sense. Don't exhaust yourself. Activities outside the home: After the first week home you may go out to dinner, visit friends, go to a movie, go to catholic, etc. Heavy activities: No hunting, skiing, jogging, snow shoveling, snowmobiling, lawn mowing, swimming, golf or tennis until after your return appointment with the surgeon. Do not ride motorcycles, [employer] tractors or horses. Avoid the use of a rifle with kickback against the shoulder for six months. Sleep: Try to establish normal sleep patterns. Long naps during the day may make it hard for you to sleep at night. Use the pain medication at bedtime for the first week at home. If you have nightmares, contact us. Some medications make this worse and these can be changed. Smoking: It is very important that you not smoke after surgery. Smoking cessation education was provided as appropriate. If you need further assistance with this please call and you will be referred toa smoking cessation specialist. Medications: Take only those medications listed on your discharge information. Keep your pain under control so you can be active, do your coughing and breathing exercises and sleep. Contact us if the pain medication isn't working for you. Do not take any herbal preparations until after you return to see the surgeon. Special Physician Instructions: DO NOT USE ANY IBUPROFEN (ADVIL, MOTRIN, ETC) OR OTHER NSAIDS (NONSTEROIDAL ANTI-INFLAMMATORY DRUGS) FOR A TOTAL OF 10 DAYS AFTER SURGERY. PLEASE CONTACT THE CARDIOTHORACIC SURGERY OFFICE IF YOU HAVE QUESTIONS ABOUT WHICH DRUGS YOU SHOULD NOT USE. . Diet: You should follow a regular diet until your appetite returns to normal. At that point in time you should resume a low fat, low cholesterol, [place] [employer] Diet. Driving: No driving until cleared by your surgeon. Avoid long trips if possible. If you must go on along trip, stop the car and walk every hour. Shower/Bath: You may shower daily. No baths, soaking, or swimming until cleared by your surgeon. Wound care: Wash your incisions daily with antibacterial soap and rinse well, pat dry. Assess for any signs of infection such as increased redness, pain, warmth or drainage. Please call your surgeon's office if you have any discharge or drainage from your chest incision. If there is a lot of swelling,apply [place] wraps during the day and remove at bedtime. Elevate your legs when you are sitting. REMOVE CHEST TUBE SUTURES ON OR AFTER 10/19/17 Home oxygen therapy: N/A Follow up appointments: Patient to follow-up with PCP, NORBERTO Cage, in 1-2 weeks. Patient to follow-up with Director Of Women'S Services, will need adaptive physical education specialist, in 2 weeks Patient to follow-up with Cardiac Surgery, Dr. Juan Alberto Dunlap, in ~ 4 weeks with CXR, EKG, and Echo. Cardiac Rehabilitation: ??Cristian Miner was seen today regarding participation in the outpatient Phase 2 Cardiac Rehabilitation at [facility] . The patient agrees to a referral to this program. The referral will be sent at discharge and the patient should be contacted by the Program within 1- 2 weeks from discharge. Future Appointments and Orders Future Orders Complete By Expires Echocardiogram Transthoracic(Leb) [QVF096 Custom] 10/19/2017 04/20/2018 Process Instructions: If the Echocardiogram is to be PERFORMED in a [facility] location other than [place]--STOP and order [id number], Echocardiogram South/External. Scheduling Instructions: Questions: Is a Bubble Study requested?: Does the patient have Congenital Heart Disease?: Does patient require sedation?: GA rationale: XR Chest PA & Lateral (Generic) [43902 [id number] Custom] 10/19/2017 04/20/2018 Process Instructions: Scheduling Instructions: Questions: Where will study be performed?: [place] [facility] Portable exam?: Reason for exam and clinical history: s/p mv repair, cabg Other pertinent information: Stat read required?: Date of injury if applicable: Requested Time: EKG 12 Lead [EKG1 Custom] As directed Process Instructions: Scheduling Instructions: Questions: Which [facility] location will this be performed?: [place] Is a rhythm strip needed?: No If EKG Reason is Pre-op Evaluation, indicate diagnosis for surgery.: Referral to Cardiac Rehab [[id number] Custom] As directed Process Instructions: If no progress note charted, please enter Clinical details in comments. Scheduling Instructions: Questions: My question or request is: CABG/MV repair- CR at [facility] Referral to Home Health - at DISCHARGE [[id number] CPT(R)] As directed Process Instructions: Scheduling Instructions: Comments: DOCUMENTATION FOR VNA SERVICES (INCLUDING THOSE PATIENTS WITH MEDICARE COVERAGE REQUIRING HOME VNA SERVICES AND/OR HOSPICE SERVICES) PATIENT'S LOCATION: Cristian Miner [address] [facility] [address] (home) Telephone Information: [employer]'s Name: self & his In discussion with the attending physician, it is certified that this patient is under their care and that they, or a Nurse Practitioner, or Physician Stretching Machine Tender Frame who is working directly with them, had aface to face encounter that meets the physician face to face encounter requirements with this patient on 10/11/2017 The encounter with the patient was in whole, or in part, for the following medical condition, which is the primary reason for home health care services: s/p CABG X2, mitral valve repair In discussion with the provider, it is certified that, based on their findings, the following services are medically necessary for home health services. To provide the following care/treatments with the clinical findings supporting the need for servicesas follows: HOME HEALTH AGENCY: [facility]. PHONE: [phone] FAX: [phone] RN orders: Cardiopulmonary assessment, incisional assessment, assess vital signs, assessment of rehab progress, medication management and effectiveness, home safety evaluation. Please draw INR if indicated and send result to: DRAW INR AND SEND RESULTS TO PCP PT ORDERS: Continue rehab for endurance, gait stability and strength with mobility and transfers. Home safety evaluation. Home exercise program if appropriate. Start of Care Date: 24 to 48 hours post discharge SPECIAL INSTRUCTIONS: For any follow up questions, needs, or issues please call the Cardiac Surgery Office at [phone] Home Health agencies which cover the area of patient's residence have been reviewed, either verballyor in writing, and patient/family have chosen the agency as noted. Questions: Agency name and contact information: [facility] Patient location post discharge: home What services are requested: Registered Nurse Physical Therapy Start date: Responsible MD post discharge contact info: Arrangements for VNA/home care: As above. VN RN OR PCP TO PLEASE REMOVE CHEST TUBE SUTURES ON OR AFTER 10/19/17 Signed: HAILEE AGUILAR APRN [facility] Section of Cardiac Surgery [facility] [place] [address] FAX [phone] Date: 10/18/2017 CC: NORBERTO Cage Nathaniel W II, MD [facility] [place] [address] documented in this encounter Discharge Instructions Patient InstructionsLiHailee khan APRN - 10/18/2017 8:41 AM EDT Anticoagulation (???Blood Thinner?? ) Management upon Discharge: ?? 1. Reason for anticoagulation therapy: Mitral valve repair ?? 2. Your warfarin (Coumadin??) dosing instruction upon discharge is: (Follow this schedule below until your first INR check after discharge (usually in 2- 4 days): ?? Day of discharge (day #1): 2 mg ?? Day #2: TO BE DETERMINED BY INR ?? 3. Follow up INR is scheduled on: Tuesday10/19/2017 ?? 4. INR Goal: 2.0-3.0 ?? 5. Expected duration of treatment: 2-3 months ?? 6. Provider/Team responsible for ongoing outpatient anticoagulation management: ?? Provider/Team/Clinic: PCP Es [place] @ ? 7. If you have not received a call from your provider within 24 hrs of having your INR drawn, pleasecall your outpatient provider for further dose instructions. ?? 8. Warfarin (Coumadin??) should be taken at the same time every day, preferably after 5:00 pm. ?? 9. Please review your Warfarin (Coumadin??) Pack upon discharge. ?? 10. If you will be on Warfarin (Coumadin??) indefinitely you should carry an identification card or wear a medical alert bracelet stating that you take Warfarin (Coumadin??). ?? 11. Warfarin Education that was reviewed with you in the hospital: (please see your warfarin (Coumadin) packet for more information) ?? Diet and medications can affect your INR ?? Maintaining a diet with a consistent amount of vitamin K containing foods is important to keep your INR in range ?? Avoid major changes in dietary habits ?? Do not take or discontinue any prescription or [id number]-[id number] medications without asking your doctor or pharmacist ?? Inform all your doctors, pharmacists and other healthcare providers that you take warfarin (Coumadin??) ?? Warfarin (Coumadin??) increases your risk of bleeding ?? If you experience any of these signs or symptoms of bleeding or blood clot please seek immediate medical attention: ?? increased pain, swelling or sudden shortness of breath ?? severe headache ?? dizziness ?? unusual bleeding or bruising ?? changes in urine or bowel movement color ?? coughing or spitting up of blood, or nosebleeds that do not stop or occur more often ?? The following table shows your most recent INR results and Warfarin (Coumadin??) doses. Please bringthis to your first warfarin INR check appointment after discharge. ?? Recent Labs ? 10/18/17 0348 10/17/17 0451 10/16/17 0451 10/15/17 0317 10/14/17 1205 10/13/17 0839 10/12/17 0518 INR 2.5 2.4 2.2 2.1 1.9 2.3 2.8 ? Hospital Date 8/18 810/10 Coumadin Dose 5 mg 5 mg 5 mg 1 mg 0 mg 2.5 mg 2.5 mg 2 mg 2.5 mg 2 mg ?? Note: Patient was discharged with 1 mg tablets. ?? Instructions Given to Patient at Discharge: ?? General Instructions ?? None ? Discharge Instructions: ?? Call your doctor if: You have a fever of greater than 101 degrees, shaking chills, if you develop redness or drainage from your incision sites, or if you have questions. Please call your surgeon's office if you have any discharge or drainage from your chest incision. Your surgeon, Dr. Juan Alberto Dunlap and/or the Cardiac Surgery Physician Stretching Machine Tender Frame Team may be reached at . ?? Antibiotic prophylaxis: You will need to take antibiotics prior to many invasive tests and treatments, such as dental cleaning, which should be done every 6 months. Your primary care physician or your dentist can prescribe this medication. Please refer to the card with the [employer] Gu idelines for more information. You have been provided with 3 copies of this card. Keep one for your self. Give one to your primary care physician and one to your dentist. Please refer to the [place] [employer] Guidelines for more information. Good dental care is important for your overall health. We recommend waiting ~3 months before returning to your dentist except in cases of emergency. ?? Weight: Weigh yourself daily. Please call the office if you notice increasing weight, increasing fluid retention (edema), and/or SOB. ?? Sternal (breast bone) precautions: No lifting greater than 7-10 pounds; no pushing or pulling with upper extremities; no excessive chest stretching for the first 4 weeks. Further instructions will be given to you at your follow-up appointment. ?? Activity level: Walk three times a day. You should continue to increase your walks by 1-2 minutes each day. It is expected that you will be walking 20-30 minutes twice a day within 3-4 weeks after discharge to home. Rest between activities and after meals. Use common sense, don't exhaust yourself. ?? Biking: You may use a stationary bicycle whenever you are comfortable enough to permit this. Tightenthe resistance slightly. Increase the amount of time on the bicycle as you would do for your walks, a minute or two each day. No biking outside until after your return appointment with Dr. Juan Alberto Dunlap. You may use a [place] or treadmill but avoid any pulling motion with the arms. ?? Home activities: You may do light housework, e.g. dusting, setting the table, washing dishes, preparing a meal. Light carpentry and gardening are allowed. Avoid trying to open tight jars and stuck windows. No vacuuming, mopping, raking, shoveling, digging or hoeing until after your return visit with the surgeon. ?? Sexual activity: You may engage in sexual activity when you feel ready. Use a position that protectsyour sternum (breastbone). Do not have your partner lie on your chest. ?? Stairs: There are no restrictions on stair climbing. Use common sense. Don't exhaust yourself. ?? Activities outside the home: After the first week home you may go out to dinner, visit friends, go to a movie, go to catholic, etc. ?? Heavy activities: No hunting, skiing, jogging, snow shoveling, snowmobiling, lawn mowing, swimming, golf or tennis until after your return appointment with the surgeon. Do not ride motorcycles, [employer] tractors or horses. Avoid the use of a rifle with kickback against the shoulder for six months. ?? Sleep: Try to establish normal sleep patterns. Long naps during the day may make it hard for you to sleep at night. Use the pain medication at bedtime for the first week at home. If you have nightmares, contact us. Some medications make this worse and these can be changed. ?? Smoking: It is very important that you not smoke after surgery. Smoking cessation education was provided as appropriate. If you need further assistance with this please call and you will be referred toa smoking cessation specialist. ?? Medications: Take only those medications listed on your discharge information. Keep your pain under control so you can be active, do your coughing and breathing exercises and sleep. Contact us if the pain medication isn't working for you. Do not take any herbal preparations until after you return to see the surgeon. ?? Special Physician Instructions: DO NOT USE ANY IBUPROFEN (ADVIL, MOTRIN, ETC) OR OTHER NSAIDS (NONSTEROIDAL ANTI-INFLAMMATORY DRUGS) FOR A TOTAL OF 10 DAYS AFTER SURGERY. PLEASE CONTACT THE CARDIOTHORACIC SURGERY OFFICE IF YOU HAVE QUESTIONS ABOUT WHICH DRUGS YOU SHOULD NOT USE. . ? Diet: You should follow a regular diet until your appetite returns to normal. At that point in time you should resume a low fat, low cholesterol, [place] [employer] Diet. ?? Driving: No driving until cleared by your surgeon. Avoid long trips if possible. If you must go on along trip, stop the car and walk every hour. ?? Shower/Bath: You may shower daily. No baths, soaking, or swimming until cleared by your surgeon. ?? Wound care: Wash your incisions daily with antibacterial soap and rinse well, pat dry. Assess for any signs of infection such as increased redness, pain, warmth or drainage. Please call your surgeon's office if you have any discharge or drainage from your chest incision. If there is a lot of swelling,apply [place] wraps during the day and remove at bedtime. Elevate your legs when you are sitting. ?? REMOVE CHEST TUBE SUTURES ON OR AFTER 10/19/17 ?? Home oxygen therapy: N/A ?? Follow up appointments: ? Patient to follow-up with PCP, NORBERTO Cage, in 1-2 weeks. ?? Patient to follow-up with Director Of Women'S Services, will need adaptive physical education specialist, in 2 weeks ?? Patient to follow-up with Cardiac Surgery, Dr. Juan Alberto Dunlap, in ~ 4 weeks with CXR, EKG, and Echo. ?? Cardiac Rehabilitation: ??Cristian Miner??was seen today regarding participation in the outpatient Phase 2 Cardiac Rehabilitation at [facility]??[facility]ospital . ?? The patient agrees to a referral to this program.? The referral will be sent at discharge and the patient should be contacted by the Program within 1- 2 weeks from discharge. documented in this encounter Medications at Time [...] 03/03/2018 PACERONE) 200 mg Tablet mouth daily. melatonin 3 mg Tablet Take 1 tablet by 0 10/19/19 18 11/17/2017 mouth nightly as needed (for sleep). metoprolol tartrate Take 1 tablet by 180 tablet 3 10/18/2017 03/03/2018 (LOPRESSOR) 50 mg Tablet mouth every 8 hours. furosemide (LASIX) 20 mg Take 1 tablet by 30 tablet 3 10/1811/17/2017 Tablet mouth daily. warfarin (COUMADIN) 1 mg Take 2 tablets by 100 tablet 3 09/2203/03/2018 Tablet mouth daily. Per INR atorvastatin (LIPITOR) 40 Take 40 mg by mouth 0 03/10/2021 mg Tablet daily. documented as of this encounter Progress Notes Emily Russo RN - 10/18/2017 9:37 AM EDT Pt d.c home with KADE ROSS, tele d.c discharge paperwork gone over with patient and at bedside. Rafaela Oliveira RN - 10/17/2017 1:24 PM EDT CM continues to monitor for home care needs. Pt independent with ambulation and adl's. DC plan is home with and VNA: [facility] when medically stable. Rafaela Oliveira RN Pager [phone] Hailee Aguilar, COLLAR PACKER - 10/17/2017 9:37 AM EDT Surgery Progress Note ID: Cristian Miner is a 61 y.o. male who is POD10 S/P CABGx2 and MV repair (10/07/17) and POD4 s/p DCCV PMHx: CAD, AF, HTN, MICHELLE, former smoker, BPH, baseline LVEF of 65% 24 hour events: SB/SR noc rates in 50's this am No afib since Tuesday night SERENA overnight Subjective: Feels tired today. Ambulating. Tolerating PO diet. Moving bowels. Voiding. Pain controlled. O: Temp: [36.4 ??C (97.5 ??F)-36.9 ??C (98.4 ??F)] Heart Rate: [59-65] Resp: [18-20] BP: (106-117)/(49-60) SpO2: [94 %-97 %] Heart Rate from SPO2: -- I/O last 3 completed shifts: In: 1760 [P.O.:1760] Out: 3625 [Urine:3625] Physical Exam: General: NAD, sitting up in chair Neuro: CN 2-12 grossly intact, nonfocal, moving all extremities. Card: RRR, SR on tele, no m/r/g Pulm: CTAB, Non-labored breathing on RA GI: Soft, non tender, non distended. +BS Ext: WWP Incisions: sternal incision, saphenectomy site CDI T/L/D: PIVs No results for input(s): WBC, HGB, HCT, PLATELET in the last 72 hours. Recent Labs 10/17/17 0451 10/16/17 0451 10/15/17 0317 10/14/17 1205 K 4.4 4.4 4.6 4.4 Assessment: Cristian Miner is a 61 y.o. male who is POD10 s/p CABGx2 and MV repair and POD4 from DCCV. Has remained afib free since Tuesday pm. Is bradycardic this am, will decrease amio to daily, continue metoprolol, will add parameters to hold if rate less than 50. -dose coumadin for mv repair and afib Plan: Neuro: Tylenol 1g q6h. Oxycodone PRN. melatonin QHS CV: lopressor 50 TID, amio 200 PO QD, lipitor 40 nightly Pulm. Pulm toilet. Duonebs prn. PEP therapy. FEN/GI: regular diet, protonix RBOs Renal: flomax 0.4 daily, lasix 20 PO BID, k prn Heme: ASA 81 mg, coumadin Endo: NICOLE ID: no issues Dispo: CSCU, full code. Discussed on rounds this AM. HAILEE AGUILAR APRN Alex Gillis PA - 10/16/2017 10:01 AM EDT Surgery Progress Note ID: Cristian Miner is a 61 y.o. male who is POD9 S/P CABGx2 and MV repair (10/07/17) and POD3 s/p DCCV PMHx: CAD, AF, HTN, MICHELLE, former smoker, BPH, baseline LVEF of 65% 24 hour events: Metoprolol increased to 50 q8h and started on Dilt drip for rate control per EP Converted to SR at 2130, dilt off SERENA overnight Subjective: Feels well. Ambulating. Tolerating PO diet. Moving bowels. Voiding. Pain controlled. O: Temp: [36.5 ??C (97.7 ??F)-36.9 ??C (98.4 ??F)] Heart Rate: [64-122] Resp: [18] BP: (100-120)/(50-75) SpO2: [94 %-98 %] Heart Rate from SPO2: -- I/O last 3 completed shifts: In: 1939 [P.O.:1939] Out: 4409 [Urine:0] Physical Exam: General: NAD, sitting up in chair Neuro: CN 2-12 grossly intact, nonfocal, moving all extremities. Card: RRR, SR on tele, no m/r/g Pulm: CTAB, Non-labored breathing on RA GI: Soft, non tender, non distended. +BS Ext: WWP Incisions: sternal incision, saphenectomy site CDI T/L/D: PIVs No results for input(s): WBC, HGB, HCT, PLATELET in the last 72 hours. Recent Labs 10/16/17 0451 10/15/17 0317 10/14/17 1205 K 4.4 4.6 4.4 Assessment: Cristian Miner is a 61 y.o. male who is POD9 s/p CABGx2 and MV repair and POD3 from DCCV. continues to have pAF postop with RVR despite amiodarone. Will attempt better rate control given h/o AF. -Cont rate control for afib, if remains in SR or afib rate controlled for 24h may be discharged, currently in SR since 2129 last night -dose coumadin for mv repair and afib Plan: Neuro: Tylenol 1g q6h. Oxycodone PRN. melatonin QHS CV: lopressor 50 TID, amio 200 PO BID, lipitor 40 nightly, dilt drip prn Pulm. Pulm toilet. Duonebs prn. PEP therapy. FEN/GI: regular diet, protonix RBOs Renal: flomax 0.4 daily, lasix 20 PO BID, k prn Heme: ASA 81 mg, coumadin Endo: NICOLE ID: no issues Dispo: CSCU, full code. Discussed on rounds this AM. NORBERTO SARMIENTO Hailee Aguilar APRN - 10/15/2017 7:51 AM EDT Surgery Progress Note ID: Cristian Miner is a 61 y.o. male who is POD8 S/P CABGx2 and MV repair (10/07/17) and POD2 s/p DCCV PMHx: CAD, AF, HTN, MICHELLE, former smoker, BPH, baseline LVEF of 65% 24 hour events: Returned to AF rates 90-110's On coumadin, INR 2.1 Subjective: Feels well this AM, asymptomatic with afib O: Temp: [36.5 ??C (97.7 ??F)-37 ??C (98.6 ??F)] Heart Rate: [107-130] Resp: [18] BP: (100-119)/(52-79) SpO2: [94 %-96 %] Heart Rate from SPO2: -- I/O last 3 completed shifts: In: 2049 [P.O.:2049] Out: 3965 [Urine:3965] Physical Exam: General: NAD, sitting up in chair Neuro: CN 2-12 grossly intact, nonfocal, moving all extremities. Card: irregularly irregular, afib on tele, no m/r/g Pulm: CTAB, Non-labored breathing on RA GI: Soft, non tender, non distended. +BS Ext: WWP Incisions: sternal incision, saphenectomy site CDI T/L/D: PIVs No results for input(s): WBC, HGB, HCT, PLATELET in the last 72 hours. Recent Labs 10/15/17 0317 10/14/17 1205 10/13/17 0839 K 4.6 4.4 3.7 Assessment: Cristian Miner is a 61 y.o. male who is POD8 s/p CABGx2 and MV repair and POD2 from DCCV. continues to have pAF postop with RVR despite amiodarone. Will attempt better rate control given h/o AF. - Increase metop to tid last night, will continue to up titrate as able for rate control, continue amio, rates currently 90's, metop changed to 50 q8 in discussion with EP -if still not rate controlled may add dilt later - INR 2.1, will dose coumadin for AF and mitral repair Plan: Neuro: Tylenol 1g q6h. Oxycodone PRN. melatonin QHS CV: lopressor 50 TID, amio 200 PO BID, lipitor 40 nightly Pulm. Pulm toilet. Duonebs. PEP therapy. FEN/GI: regular diet, protonix RBOs Renal: flomax 0.4 daily, lasix 20 PO BID Heme: ASA 81 mg, coumadin tonight, INR 2.1 Endo: NICOLE ID: Periop ABX completed Dispo: CSCU, full code. Discussed on rounds this AM. HAILEE AGUILAR APRN Rylee Gutierrez RN - 10/15/2017 5:22 AM EDT OUTCOME EVALUATION NOTE: OUTCOME SUMMARY: Cristian had a good night, intermittently resting between care. Pain controlled with scheduled tylenol. A-fib on tele rates 100s-130s. Will continue to monitor. PLAN MOVING FORWARD: Rate control, medication adjustments; discharge planning as appropriate INDIVIDUALIZED FALL PREVENTION INTERVENTIONS: Patient-specific fall risk factors per assessment: [current deficits]: PIVs, tele, hospital environment, generalized weakness Assistance [level of assistance required for transfers and ambulation]: Standby Supervision [direct monitoring required during toileting and ADLs]: Eyes on Surveillance [continuous indirect monitoring]: Call ahn within reach, telemetry, purposeful nurse rounding Patient-specific fall prevention interventions for sensory deficits provided, if applicable: Yes CPG GOAL OUTCOME EVALUATION: Saqib Holguin - 10/14/2017 12:38 PM EDT Nutrition Services - Education Note Cristian Miner : 1955 AGE: 61 y.o. Patient Active Problem List Diagnosis Date Noted ??? Morbid obesity 07/26/2017 ??? Atrial fibrillation 07/26/2017 ??? MICHELLE (obstructive sleep apnea) 07/26/2017 ??? SOB (shortness of breath) 07/26/2017 ??? Palpitations 07/26/2017 ??? Mitral regurgitation 07/26/2017 ??? Hospital-CAD (coronary artery disease) 07/22/2017 Reason for Nutrition Intervention: Diagnosis, Hospital Day 8 Diet Order: Regular Appetite: Pretty good-per pt Food allergies: NKFA Chewing/Swallowing difficulty: none noted. Ht Readings from Last 3 Encounters: 10/07/17 172 cm (5' 7.72) 09/15/17 175.3 cm (5' 9) 08/16/17 175.3 cm (5' 9) Wt Readings from Last 3 Encounters: 10/14/17 135.2 kg (298 lb 1 oz) 09/15/17 126.1 kg (278 lb) 08/25/17 126.5 kg (278 lb 12.8 oz) Body mass index is 45.7 kg/(m^2). Education: Nutrition After Heart Surgery dietary guidelines. Verbalized good understanding. Education material, with means of contact provided. Education: Guidelines for a Heart Healthy Lifestyle educational material. Verbalized good understanding. Education material, with means of contact provided. Assessment: Pt seen for Hospital LOS and diagnosis. Patient verbalized good understanding of currentdietary restrictions at this time. He reported a good appetite without difficulty chewing or swallowing. He is tolerating current diet without nausea or vomiting. Patient verbalized good understanding of protein needs following heart surgery. Provided patient with copy of Guidelines for a Heart Healthy Lifestyle booklet, with emphasis on the last page, Nutrition After Heart Surgery. Assistant Bookkeeper Suggested using herbs and spices to incorporate flavor in foods. Pt stated that he does not use salt. Assistant Bookkeeper discussed how to read a food label and what terms to look for while grocery shopping. Assistant Bookkeeper made notes on educational material per pt's request. Emphasized the importance of portion sizes as well. Highly encouraged daily consumption of fresh fruits and vegetables, lean meats and fish, whole grains and low fat dairy products. Educational material Guidelines for a Heart Healthy Lifestyle provided with contact information if questions arise. Assistant Bookkeeper provided pt with Recipes From The Heart cookbookwhich will provide pt with additional low fat low sodium high protein meal options. Pt had no further questions at this time. Encouraged pt to contact Food and Nutrition services with any questions that may arise. Last bowel movement noted 10/11/17. Nutrition Plan: Continue current diet. Recommend Daily Multi Vitamins. Encourage good po intake. Monitor weight. Support and encouragement provided. Nutrition services to follow weekly thru hospital course unless consulted in the interim. SINDI Do Cal Watson PA - 10/14/2017 8:44 AM EDT Surgery Progress Note ID: Cristian Miner is a 61 y.o. male who is POD7 S/P CABGx2 and MV repair (10/07/17) and POD2 s/p DCCV PMHx: CAD, AF, HTN, MICHELLE, former smoker, BPH, baseline LVEF of 65% 24 hour events: - PW removed - Returned to AF overnight rates 100s - 120s, HDS, given IV lopressor remains in AF this AM up to 120s. Therapeutic anticoagulation with coumadin Subjective: Feels well this AM, some palpitations and fatigue with conversion to AF. +BM and Flatus. O: Temp: [36.5 ??C (97.7 ??F)-36.7 ??C (98.1 ??F)] Heart Rate: [65-142] Resp: [16-18] BP: (100-121)/(50-92) SpO2: [90 %-96 %] Heart Rate from SPO2: -- I/O last 3 completed shifts: In: 2019 [P.O.:2019] Out: 2624 [Urine:2625] Physical Exam: General: NAD, sitting up in chair Neuro: CN 2-12 grossly intact, nonfocal, moving all extremities. Card: irregularly irregular, afib on tele, no m/r/g Pulm: CTAB, Non-labored breathing on RA GI: Soft, non tender, non distended. +BS Ext: WWP Incisions: sternal incision, saphenectomy site CDI T/L/D: PIVs Recent Labs 10/11/17 1138 WBC 9.3 HGB 12.2* HCT 36.8* PLATELET 141* Recent Labs 10/13/17 0839 10/12/17 0518 K 3.7 3.9 Assessment: Cristian Miner is a 61 y.o. male who is POD7 s/p CABGx2 and MV repair and POD2 from DCCV. continues to have pAF postop with RVR despite amiodarone. Will attempt better rate control given h/o AF. - Increase metop to 25mg BID this AM - INR pending, will dose coumadin for AF and mitral repair Plan: Neuro: Tylenol 1g q6h. Oxycodone PRN. melatonin QHS CV: lopressor 25 BID, amio 200 PO BID, lipitor 40 nightly, Pulm. Pulm toilet. Duonebs. PEP therapy. FEN/GI: regular diet, protonix RBOs Renal: flomax 0.4 daily, lasix 20 PO BID Heme: ASA 81 mg, coumadin tonight, INR pending Endo: NICOLE ID: Periop [email or web address] completed Dispo: CSCU, full code. Discussed on rounds this AM. NORBERTO Badillo Iveth Torres RN - 10/14/2017 2:16 AM EDT Cristian had a good night. A&O x4. See flowsheet for VS/I&O. Pt converted from NSR to AFIB at 0300, notified and gave total of 5mg IV Metoprolol per order. Pt asymptomatic with conversion. Denies CP/SOB. MSI C/D/I. Plan to d/c tomorrow Natalie Stockton PA - 10/13/2017 8:35 AM EDT Surgery Progress Note ID: Cristian Miner is a 61 y.o. male who is POD6 S/P CABGx2 and MV repair (10/07/17) and POD1 s/p DCCV (10/12/17) PMHx: CAD, AF, HTN, MICHELLE, former smoker, BPH, baseline LVEF of 65% 24 hour events: - underwent successful DCCV yesterday morning, converted to NSR and has remained since then -amio gtt continued overnight, dc'd this morning Subjective: Feels good this morning, happy that he is still in NSR. Still c/o mild bloating, but had BM yesterday and flatus continues. Denies SOB. Tolerating PO. O: Temp: [36.5 ??C (97.7 ??F)-36.8 ??C (98.2 ??F)] Heart Rate: [63-75] Resp: [14-28] BP: (71-141)/(29-63) SpO2: [92 %-100 %] Heart Rate from SPO2: -- I/O last 3 completed shifts: In: 1795 [P.O.:1745; I.V.:50] Out: 2350 [Urine:2350] Physical Exam: General: NAD, sitting up chair Neuro: CN 2-12 grossly intact, nonfocal, moving all extremities. Card: irregularly irregular, afib on tele (HR 90-120s) Pulm: CTAB, Non-labored breathing on 1L NC - RA GI: Soft, non tender, non distended. +BS Ext: WWP Incisions: sternal incision, saphenectomy site CDI T/L/D: PIVs, TPW Recent Labs 10/11/17 1138 10/10/17 1053 WBC 9.3 15.9* HGB 12.2* 12.3* HCT 36.8* 36.6* PLATELET 141* 106* Recent Labs 10/13/17 0839 10/12/17 0518 10/11/17 0614 10/10/17 1053 NA -- -- -- 132* K 3.7 3.9 4.3 3.9 CL -- -- -- 96* CO2 -- -- -- 25 BUN -- -- -- 21* CREATININE -- -- -- 0.68* CALCIUM -- -- -- 8.2* New Imaging ?? None new Assessment: Cristian Miner is a 61 y.o. male who is POD6 s/p CABGx2 and MV repair (10/07/17) and POD1 s/p DCCV (10/12/17) PMHx: CAD, AF, HTN, MICHELLE, former smoker, BPH, baseline LVEF of 65% -dc TPW -dc amio gtt -increase amio PO to 200 BID while in-house, plan for 200 daily on dc -dose Coumadin 2.5mg tonight for INR 2.3 -replete K -Continue to monitor abdomen (having +B's) - hx of rupture diverticulum -will likely be ready for discharge tomorrow Plan: Neuro: Tylenol 1g q6h. Oxycodone PRN. CV: lopressor 12.5 BID, amio 200 PO BID, dc amio gtt, lipitor 40 nightly, dc TPW Pulm: wean o2 as able. Pulm toilet. Duonebs. PEP therapy. FEN/GI: regular diet, protonix RBOs, continue to monitor abdomen (having BM's) Renal: flomax 0.4 daily, lasix 20 PO BID Heme: ASA 81 mg, coumadin 2.5mg tonight Endo: NICOLE ID: Periop [email or web address] completed Dispo: CSCU, full code. Discussed on rounds this AM. Natalie Stockton PA Alyana Rai RN - 10/12/2017 8:36 PM EDT Images from the original note were not included. Infiltration/Extravasation Scale Cristian Miner [id number] C436/[id number] Infiltration appearance: Infiltration harm % for this extremity 18% Based on measurement calculation (greatest measurement X divided by length of extremity multiplied by 100= %) Considerations and Mckeon: Consider the following: If the percentage of limb affected is <5% then select 1 If the percentage of limb affected is 6-25% then select 2 If the percentage of limb affected is 26-49% then select 3 If the percentage of limb affected is > 50% then always select 4 Edema 1 to 6 inches (2.5 to 15 cm) in any direction Cool to touch With pain Infiltration appearance score: 2 Medication Name infiltrated is Amiodorone which is a (n) Low pH Location of infiltration:left arm: anterior Measurement in cm of length and width of affected area---Affected extremity 10cm x 12cm Measurement of Circumference in cm of Infiltrated area of affected extremity Measurement of Circumference in cm of Unaffected extremity (at same location as affected extremity) Left/ Affected Right Unaffected Wrist 20 20 AC 34 34 8cm below AC 35 34 5cm above AC 36 40 (right handed) Pulses present on affected extremity yes Medicated treatment given per policy/ order: hyaluronidase Plan for continued monitoring of infiltration/extravasation Name of MD contacted 8:36 PM Name of RN contacted CORNELIUS Navarro 8:36 PM Name of Pharmacist if consulted Dilcia 8:36 PM Plastics Provider contacted: no 8:36 PM Name of Plastics MD (if consulted) 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 Kedar St RN - 10/12/2017 6:49 PM EDT Afib in morning, cardioverted into NS, remained for duration of shift. No complaints of CP or SOB. Ambulated 4x around unit. Multiple bouts of flatulence. Visited with family for majority of day. See flow sheet for vitals and I&O. Denies pain and SOB. Call ahn in reach. Will continue to monitor. Td Berry PA - 10/12/2017 8:28 AM EDT Surgery Progress Note ID: Cristian Miner is a 61 y.o. male who is 5 Days Post-Op S/P CABGx2 and MV repair PMHx: CAD, AF, HTN, MICHELLE, former smoker, BPH, baseline LVEF of 65% Interval: - Continues in afib (rates 90-120s). - NPO since midnight for DCCV with Cardiology today. Subjective: Doing ok other than being in afib. Ambulating some. Tolerating PO diet- NPO for cardioversion this AM. Breathing ok. +BM. Denies n/v, fever chills, SOB, CP, abd pain. O: Temp: [36.5 ??C (97.7 ??F)-36.7 ??C (98.1 ??F)] Heart Rate: [92-106] Resp: [20-28] BP: (94-119)/(47-70) SpO2: [98 %-99 %] Heart Rate from SPO2: -- I/O last 3 completed shifts: In: 1557 [P.O.:1557] Out: 1250 [Urine:1250] Physical Exam: General: NAD, sitting up chair Neuro: CN 2-12 grossly intact, nonfocal, moving all extremities. Card: irregularly irregular, afib on tele (HR 90-120s) Pulm: CTAB, Non-labored breathing on 1L NC - RA GI: Soft, non tender, non distended. +BS Ext: WWP Incisions: sternal incision, saphenectomy site CDI T/L/D: PIVs, TPW Recent Labs 10/11/17 1138 10/10/17 1053 WBC 9.3 15.9* HGB 12.2* 12.3* HCT 36.8* 36.6* PLATELET 141* 106* Recent Labs 10/12/17 0518 10/11/17 0614 10/10/17 1053 NA -- -- 132* K 3.9 4.3 3.9 CL -- -- 96* CO2 -- -- 25 BUN -- -- 21* CREATININE -- -- 0.68* CALCIUM -- -- 8.2* New Imaging ?? None new Assessment: Cristian Miner is a 61 y.o. male who is 5 Days Post-Op s/p CABGx2 and MV repair. PMHx: CAD, AF, HTN, MICHELLE, former smoker, BPH, baseline LVEF of 65% NPO for DCCV today; INR 2.8 Keep TPW post dccv Hold coumadin dose tonight Continue to monitor abdomen (having +B's) - hx of rupture diverticulum Plan: Neuro: Tylenol 1g q6h. Oxycodone PRN. CV: lopressor 12.5 BID, amio 200 PO daily, lipitor 40 nightly, plan for DCCV today Pulm: wean o2 as able. Pulm toilet. Duonebs. PEP therapy. FEN/GI: NPO for DCCV, protonix RBOs, continue to monitor abdomen (having BM's) Renal: flomax 0.4 daily, lasix 20 PO BID Heme: ASA 81 mg, hold coumadin tonight Endo: NICOLE ID: Periop [email or web address] completed Dispo: CSCU, full code Discussed on rounds this AM. 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 Patient may be ready for d/c end of the week. The patient has been provided a list of Home Health Agencies which serve their preferred geographic area. A letter describing our affiliations was reviewed with them and they were educated about their right to choose where referrals are placed. [facility]. PHONE: [phone] FAX: [phone] Expected date of discharge: possible d/c /Tue ADDENDUM: 10/11 - RN-CM called VNA and talked with CORNELIUS Diaz/intake and left voice message with contact information to confirm services. Referral routed to the Cocoa Butter Filter Operator for matching with agency/vendor and to provide any required information. Plan: CM will continue to follow for coordination of care and to facilitate discharge planning. CM Jyotsna Vann RN, BS, pager [phone] Emily Avina PA - 10/11/2017 8:15 AM EDT Surgery Progress Note ID: Cristian Miner is a 61 y.o. male who is 4 Days Post-Op S/P CABGx2 and MV repair PMHx: CAD, AF, HTN, MICHELLE, former smoker, BPH, baseline LVEF of 65% Interval: - has been in and out of afib since Tuesday; converted to sinus tien in the 50s yesterday AM after amio bolus x 3. Converted back to afib (rates 90-120s) last night at 2030. Given additional Amio po dose last night for slightly better rates. - NPO this AM - feels slightly nauseous and intermittently lightheaded - metop not increased due to SBP Subjective: Pt reports that he had a bowel movement yesterday after suppository, he is denying bloating or abdominal discomfort. Tolerating PO- NPO for cardioversion this AM. OOB to chair. Breathing ok. Denies SOB, CP. O: Temp: [36.6 ??C (97.9 ??F)-37.2 ??C (99 ??F)] Heart Rate: [59-115] Resp: [18-29] BP: (98-120)/(55-90) SpO2: [93 %-98 %] Heart Rate from SPO2: -- I/O last 3 completed shifts: In: 760 [P.O.:760] Out: 1400 [Urine:1400] Physical Exam: General: NAD, sitting up chair Neuro: CN 2-12 grossly intact, nonfocal, moving all extremities. Card: irregularly irregular, afib on tele (HR 90-120s) Pulm: CTAB, Non-labored breathing on 2L nasal cannula GI: Soft, non tender, non distended. +hypoactive BS Ext: WWP Incisions: sternal incision, saphenectomy site CDI T/L/D: PIVs, TPW Recent Labs 10/10/17 1053 WBC 15.9* HGB 12.3* HCT 36.6* PLATELET 106* Recent Labs 10/11/17 0614 10/10/17 1053 10/09/17 0350 10/08/17 1950 10/08/17 1118 NA -- 132* -- -- -- K 4.3 3.9 4.2 4.4 5.3* CL -- 96* -- -- -- CO2 -- 25 -- -- -- BUN -- 21* -- -- -- CREATININE -- 0.68* -- -- -- CALCIUM -- 8.2* -- -- -- New Imaging ?? None new Assessment: Cristian Miner is a 61 y.o. male who is 4 Days Post-Op s/p CABGx2 and MV repair. PMHx: CAD, AF, HTN, MICHELLE, former smoker, BPH, baseline LVEF of 65% NPO for DCCV today; INR 2.5 Keep TPW Dose coumadin- 1 mg Continue to monitor abdomen- hx of rupture diverticulum Plan: Neuro: Tylenol 1g q6h. Oxycodone PRN. CV: lopressor 12.5 BID, amio 200 PO daily, lipitor 40 nightly, plan for DCCV today Pulm: wean o2 as able. Pulm toilet. Duonebs. PEP therapy. FEN/GI: NPO for DCCV, protonix RBOs, continue to monitor abdomen closely Renal: flomax 0.4 daily, lasix 20 PO BID Heme: ASA 81 mg, coumadin 1mg tonight Endo: NICOLE ID: Periop [email or web address] completed Dispo: CSCU, full code NORBERTO Chaudhary Natalie Stockton PA - 10/10/2017 9:48 AM EDT Surgery Progress Note ID: Cristian Miner is a 61 y.o. male who is 3 Days Post-Op S/P CABGx2 and MV repair PMHx: CAD, AF, HTN, MICHELLE, former smoker, BPH, baseline LVEF of 65% Interval: - Afib continued yesterday, has received a total of 3 amio boluses. Converted to junctional in 50s at 0530 today and after a few hours to sinus tien - CTs dc'd -transferred to floor Subjective: Feels very uncomfortable due to gas- has passed flatus once or twice, is burping often. No BM yet. Vomited once and felt better. Tolerating PO. OOB to chair. Breathing ok. Denies SOB, CP O: Temp: [36.5 ??C (97.7 ??F)-37.2 ??C (99 ??F)] Heart Rate: [55-127] Resp: [17-30] BP: (93-124)/(54-76) SpO2: [93 %-100 %] Heart Rate from SPO2: -- I/O last 3 completed shifts: In: 2607.4 [P.O.:750; I.V.:1857.4] Out: 1954 [Urine:1845; Other:110] Physical Exam: General: NAD, sitting up chair Neuro: CN 2-12 grossly intact, nonfocal, moving all extremities. Card: bradycardic, regular rhyhtm, sinus tien on tele. Pulm: CTAB, Non-labored breathing on 2L nasal cannula GI: Soft, non tender, non distended. +hypoactive BS Ext: WWP Incisions: sternal incision, saphenectomy site CDI T/L/D: pichardo, IJ, art line, PIVs, TPW Recent Labs 10/08/17 0350 10/07/17 1820 10/07/17 1327 10/07/17 1239 WBC 18.2* -- 20.3* -- HGB 14.6 15.8 11.8* 10.8* HCT 43.1 -- 36.8* 32.1* PLATELET 135* -- 140* 150 Recent Labs 10/09/17 0350 10/08/17 1950 10/08/17 1118 10/08/17 0350 10/07/17 2350 NA -- -- -- 142 -- K 4.2 4.4 5.3* 4.4 4.4 4.5 CL -- -- -- 109* -- CO2 -- -- -- 19* -- BUN -- -- -- 17 -- CREATININE -- -- -- 0.93 -- New Imaging ?? None new Assessment: Cristian Miner is a 61 y.o. male who is 3 Days Post-Op s/p CABGx2 and MV repair. PMHx: CAD, AF, HTN, MICHELLE, former smoker, BPH, baseline LVEF of 65% DC amio gtt, transition to amio 200 PO daily AAI pace at 80 DC pichardo Monitor for BM-- clear liquid diet for now. Will consider suppository today vs tomorrow Dose coumadin 5mg tonight for INR 1.8 Plan: Neuro: Tylenol 1g q6h. Oxycodone PRN. CV: lopressor 12.5 BID, amio 200 PO daily, lipitor 40 nightly, Pulm: wean o2 as able. Pulm toilet. Albuterol QID FEN/GI: clear liquid diet, protonix RBOs, consider suppository today Renal: flomax 0.4 daily, lasix 20 PO BID Heme: ASA 81 mg, coumadin 5mg tonight Endo: NICOLE ID: Periop [email or web address] completed Dispo: CSCU, full code NORBERTO Collado Td Berry PA - 10/09/2017 10:46 AM EDT Surgery Progress Note ID: Cristian Miner is a 61 y.o. male with CAD, AF, HTN, MICHELLE, former smoker, BPH, baseline LVEF of 65% how is now POD2 S/P CABGx2 and MV repair Interval: - Afib o/n. Amio gtt and bolus given. - Started BB this AM. Continues in afib. Subjective: Pain controlled. Kj PO diet. OOB to chair. Breathing ok. - Flatus. - BM. Denies n/v, fever, chills, SOB, CP, abd pain. O: Temp: [36.7 ??C (98.1 ??F)-37.5 ??C (99.5 ??F)] Heart Rate: [61-160] Resp: [15-27] BP: (99-108)/(59-68) SpO2: [94 %-98 %] Heart Rate from SPO2: -- I/O last 3 completed shifts: In: 5588 [P.O.:1200; I.V.:4188; IV Piggyback:200] Out: 2485 [Urine:1955; Other:530] Physical Exam: General: NAD, resting comfortably CVS: Irr Irr, afib on tele. Pulm: Normal work of breathing on nasal cannula GI: Soft, non tender, non distended Ext: +2 VIKI, saphnectomy site clean and intact. Neuro: CN 2-12 grossly intact, nonfocal, moving all extremities. Incisions: sternal incision CDI T/L/D: pichardo, IJ, art line, PIVs, TPW Recent Labs 10/08/17 0350 10/07/17 1820 10/07/17 1327 10/07/17 1239 WBC 18.2* -- 20.3* -- HGB 14.6 15.8 11.8* 10.8* HCT 43.1 -- 36.8* 32.1* PLATELET 135* -- 140* 150 Recent Labs 10/09/17 0350 10/08/17 1950 10/08/17 1118 10/08/17 0350 10/07/17 2350 NA -- -- -- 142 -- K 4.2 4.4 5.3* 4.4 4.4 4.5 CL -- -- -- 109* -- CO2 -- -- -- 19* -- BUN -- -- -- 17 -- CREATININE -- -- -- 0.93 -- New Imaging ?? None new Assessment: Cristian Miner is a 61 y.o. male with CAD, AF, HTN, MICHELLE, former smoker, BPH, baseline LVEF of 65% how is now POD2 S/P CABGx2 and MV repair. Continue amio gtt while in afib. Ok for PO amio load to start today while on amio gtt. Low dose BB ok. NPO midnight if does not convert to NSR. Transfer to ICCU Plan: Neuro: pain controlled. Tylenol q6h 1 gram. Oxycodone 5-10 mg q4h PRN. CV: Amio gtt, lopressor 12.5'', amio 200 bid, lipitor 40' Pulm: Wean o2 as able. Pulm toilet. FEN/GI: ADAT Renal: Pichardo in place, making adequate urine, flomax 0.4', lasix 20 PO bid Heme: ASA 81 mg, coumadin 5 Endo: Insulin protocol ID: Periop ABX completed Prophylaxis: SCDs Dispo: CVCC, full code NORBERTO MURRY Geoffrey Kulkarni MD - 10/08/2017 10:28 AM EDT Surgery Progress Note ID: Cristian Miner is a 61 y.o. male with CAD, AF, HTN, MICHELLE, former smoker, BPH, baseline LVEF of 65% how is now POD1 S/P CABGx2 and MV repair Interval: Pressors weaned off Epi now weaning off slowly Extubated Subjective: Pain controlled, denies nausea, vomiting, chest pain or shortness of breath. O: Temp: [35.3 ??C (95.5 ??F)-38.2 ??C (100.8 ??F)] Heart Rate: [62-106] Resp: [0-23] BP: (119-124)/(63-68) SpO2: [93 %-100 %] Heart Rate from SPO2: [84 bpm-90 bpm] I/O last 3 completed shifts: In: 7670.7 [I.V.:6070.7; Blood:1200; IV Piggyback:400] Out: 4435 [Urine:3965; Other:470] Physical Exam: General: NAD, resting comfortably CVS: Regular, SR on monitor Pulm: Normal work of breathing on nasal cannula GI: Soft, non tender, non distended Ext: +2 VIKI, saphnectomy site clean and intact. Neuro: CN 2-12 grossly intact, nonfocal, moving all extremities. Incisions: sternal incision CDI T/L/D: pichardo, swan, IJ, art line, PIVs, TPW Recent Labs 10/08/17 0350 10/07/17 1820 10/07/17 1327 10/07/17 1239 WBC 18.2* -- 20.3* -- HGB 14.6 15.8 11.8* 10.8* HCT 43.1 -- 36.8* 32.1* PLATELET 135* -- 140* 150 Recent Labs 10/08/17 0350 10/07/17 2350 10/07/17 1820 NA 142 -- -- K 4.4 4.4 4.5 3.5 CL 109* -- -- CO2 19* -- -- BUN 17 -- -- CREATININE 0.93 -- -- New Imaging ?? None new Assessment: Cristian Miner is a 61 y.o. male with CAD, AF, HTN, MICHELLE, former smoker, BPH, baseline LVEF of 65% how is now POD1 S/P CABGx2 and MV repair. Doing well. Plan to wean epi today and then pull swan later today. Possibly start Lasix / metoprolollater today doing well. Keeping CTs in. 5 mg warfarin. Keep in CVCC today. Plan: Neuro: pain controlled. Tylenol q6h 1 gram. Oxycodone 5-10 mg q4h PRN. CV: Wean epi. Doing well. [place] out later. Pulm: Wean o2 as able. Pulm toilet. FEN/GI: ADAT Renal: Pichardo in place, making adequate urine Heme: ASA 81 mg Endo: Insulin protocol ID: Periop [email or web address] completed Prophylaxis: SCDs Dispo: CVCC, full code Geoffrey Almarazreece Cardiac Surgery Clint Mandujano, [facility] - 10/07/2017 5:22 PM EDT AMV Protocol: SBT Protocol: No SBT: Vent Settings: Servo I Ventilator Mode: SIMV Vol + PS Pressure Control above PEEP: PEEP Set: 8 Resp Rate Set: (S) 18 (increase MV) FiO2: (S) 40 % (po2 255) PSV: 10 Ventilator Measurements: Resp: 18 Vt Exhaled: 552 PIP: 26 Vt Spontaneous: MAP: 12 Plateau Press: Ve: 11.8 PEEP: SpO2: 99 % EtCO2: 27 mmHg Airway: 8.0 @ 23 cm at the Teeth. Skin Integrity: WDL Breath Sounds: crackles Secretions: none Assessment / Events / Plan of the Day: Pt received intubated from OR and placed on the above settings per direct Attending order. Pt initially hypoxic, Vt increased from 600 to 700. Recruitment maneuver performed as indicated in Epic. Follow-up pO2 255, oxygen reduced from 100% to 40%. Plan is to remain intubated overnight. documented in this encounter H&P Notes Juan Alberto Dunlap MD - 10/07/2017 7:33 AM EDT Patient Name: Cristian Miner Patient Age: 61 y.o. Birthdate: 1955 Admit date: 10/07/2017 Attending Physician: Juan Alberto Dunlap MD Mr. Mnier is a 61-year-old male with known atherosclerotic coronary artery disease having suffered a AR in the past. This was managed with primary angioplasty. He has had recently increasingly severe exertional dyspnea and an episode of new onset atrial fibrillation. This resulted in a hospitalization [facility] which a transthoracic echo was performed. I had an opportunity to review this echo. The windows are poor and the exact anatomy of the mitral valve is not well-defined and appears to show at leastmoderate if not severe mitral regurgitation. A follow up JAYLON confirmed the presence of severe MR. Hehas depressed left ventricular systolic function. He was brought back into a sinus rhythm stabilizedand discharged. He ultimately underwent a cardiac cath which I also had an opportunity to review. This shows a 65% lesion of the second obtuse marginal branch and a 50% mid to distal right coronary lesion as well. His pulmonary artery pressures on that study were 43/17. His symptoms at this point are class II exertional dyspnea. His past medical history and review of systems are otherwise importantlypositive for treated hypertension, he has obstructive sleep apnea, he has a BMI of 40. He has obstructive sleep apnea, he does not have diabetes, he has had no known previous CVA or TIA, he has no known renal or hepatic insufficiency. 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 Heis undergone surgery for ruptured diverticuli. 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 ?? On examination he has a blood pressure 125/53, his heart rates in the 60s at sinus by palpation and on ECG. He is 5 feet 9 inches tall weighs 126 kg. ?? His HEENT examination is unremarkable there are no cervical masses or bruits. ?? His cardiac exam is remarkable for soft 2/6 systolic murmur at the left lower parasternal border which can be heard at the apex. ?? His abdomen is obese but soft. ?? The lower extremities are free of obvious edema there are no gross varicosities. ?? In summary, Mr. Miner has severe, symptomatic MR and ischemic cardiomyopathy. He would benefit from reduction annuloplasty to correct his MR if possible and two- vessel bypass grafting. In the event we are unable to adequately repair his mitral the various prosthetic options were reviewed with the patient and his . He has elected for implantation of a biological prosthesis should that be the case. The other potential risks and anticipated benefits were carefully reviewed with Mr. Miner and his . He does agree to undergo operation and is given written informed consent. There has been No change in the patients condition or operative plan since last visit. Juan Alberto Dunlap MD [phone] documented in this encounter Procedure Notes Romel Call PA - 10/12/2017 11:22 AM EDTAssociated Order(s): CARDIOVERSION-OR Procedure(s): CARDIOVERSION-OR Pre-Procedure Diagnose(s): Paroxysmal atrial fibrillation Direct Current Cardioversion Procedure Note: Date of Procedure: 10/07/2017 Attending: Jamaica Hough MD PA: Romel Call PA Fellow: Dana Laura MD Indication:atrial fibrillation Patient Active Problem List Diagnosis ??? Morbid obesity ??? Atrial fibrillation ??? MICHELLE (obstructive sleep apnea) ??? SOB (shortness of breath) ??? Palpitations ??? Mitral regurgitation ??? CAD (coronary artery disease) The patient was brought to the procedure room in the fasting state with an intravenous line in place. After answering all of the patient's questions and assuring informed consent, and with the anesthesiology service assisting with sedation and airway management, the patient transiently was anesthetized. The electrode pads were placed in the following position: ( ) Right anterior, left scapular (X) Left anterior, left scapular ( ) Right upper parasternal and apical ( ) Other: The patient received #1 synchronized discharge(s) and the maximal discharge at 150wsec joules. NSR restored successfully: (X) Yes ( ) Yes, but with early relapse ( ) No Complications: The patient subsequently awoke with no memory of the cardioversion, and there were noapparent complications. Provider Instructions: A follow up 12-lead ECG will be obtained. documented in this encounter Nursing Notes Skip Hernández RN - 10/12/2017 12:15 PM EDT Pt report to RN to CSCU alert and oriented on zoll. Sinus rthym Skip Hernández RN - 10/12/2017 11:48 AM EDT [place] THORNTON present for evaluation of patient post cardioversion. Pt alert and oriented. NORBERTO Cotareneval of ECG. No change to treatment Skip Hernández RN - 10/12/2017 11:47 AM EDT Anesthesia: MAC Pt received from Dr Clemons Anesthesia BEEPER [id number]. Pt alert and oriented with clearspeech, pink, warm, and dry skin. No c/o pain. Pt states happy my heart is beating normal. Able tocough and deep Breath. VS recorded in EPIC and Neuro check equal to baseline assessment on floor. Pt to continue q 15 minute vs and to CSCU with staff. CSCU RN to accept patient Mick Mejia RN - 10/12/2017 11:18 AM EDT 1114 Pt cardioverted at 150J X1 SR Pad sites pink blanchable documented in this encounter Miscellaneous Notes Plan of Care - Isela Vann RN - 10/18/2017 1:27 AM EDT Problem: Skin Integrity Impairment, Risk/Actual (Adult) Goal: Identify Related Risk Factors and Signs and Symptoms Related risk factors and signs and symptoms are identified upon initiation of Human Response Clinical Practice Guideline (CPG) Outcome: Ongoing (Interventions Implemented as Appropriate) 10/18/17 0124 Skin Integrity Impairment, Risk/Actual Skin Integrity Impairment, Risk/Actual: Related Risk Factors edema;fluid/nutrition status;surgery/procedure Signs and Symptoms (Skin Integrity Impairment) edema Goal: Skin Integrity/Wound Healing Patient will demonstrate the desired outcomes by discharge/transition of care. Outcome: Ongoing (Interventions Implemented as Appropriate) 10/18/17 0124 Skin Integrity Impairment, Risk/Actual (Adult) Skin Integrity/Wound Healing making progress toward outcome Problem: Patient Care Overview Goal: Plan of Care Review Outcome: Ongoing (Interventions Implemented as Appropriate) 10/18/17 0124 Coping/Psychosocial Plan Of Care Reviewed With patient Plan of Care Review Progress improving Goal: Individualization & Mutuality OUTCOME EVALUATION NOTE: OUTCOME SUMMARY: Pt A+O. No complaints of pain or SOB. Pt ambulated with nursing staff prior to bed without issues. remains at bedside. SR SB on tele. Warm pack applied to old infiltrate on left arm for comfort. Pt sleeping in the chair throughout the night. Legs elevated PLAN MOVING FORWARD: d/c today? INDIVIDUALIZED FALL PREVENTION INTERVENTIONS: Patient-specific fall risk factors per assessment: [current deficits]: cscu cords Assistance [level of assistance required for transfers and ambulation]: SB Supervision [direct monitoring required during toileting and ADLs]: int Surveillance [continuous indirect monitoring]: rounds, tele. Patient-specific fall prevention interventions for sensory deficits provided, if applicable: low bed, call ahn in reach, rings appropriately, non skid socks when out of bed CPG GOAL OUTCOME EVALUATION: Ongoing Plan of Care - Emily Russo RN - 10/17/2017 3:43 PM EDT Problem: Patient Care Overview Goal: Plan of Care Review Outcome: Ongoing (Interventions Implemented as Appropriate) 10/17/17 1530 Coping/Psychosocial Plan Of Care Reviewed With patient Plan of Care Review Progress improving OUTCOME EVALUATION NOTE: OUTCOME SUMMARY: See flow sheet for VS,SB on tele 50s-60s assessment as documented. no complaints of chest pain or SOB. No reports of pain or discomfort this shift. Ambulated in the hallway with stand by assist. Familyat bedside for support. Will continue to monitor. PLAN MOVING FORWARD: D.c home tomorrow, monitor HR, rhythm with amio and metop, ambulate INDIVIDUALIZED FALL PREVENTION INTERVENTIONS: Patient-specific fall risk factors per assessment: [current deficits]: Unfamiliar environment, telemetry, generalized weakness, needs assistance OOB Assistance [level of assistance required for transfers and ambulation]: SBA, non-slip socks Supervision [direct monitoring required during toileting and ADLs]: Intermittent, Appropriate use ofcall ahn, eyes on Surveillance [continuous indirect monitoring]: Purposeful hourly rounding, call ahn in reach, room kept free of obstacles, ekg monitor tech, alarms and settings reviewed q4 Patient-specific fall prevention interventions for sensory deficits provided, if applicable: Lighting adjusted for task/safety CPG GOAL OUTCOME EVALUATION: Ongoing Plan of Care - Isela Vann RN - 10/17/2017 3:37 AM EDT Problem: Skin Integrity Impairment, Risk/Actual (Adult) Goal: Identify Related Risk Factors and Signs and Symptoms Related risk factors and signs and symptoms are identified upon initiation of Human Response Clinical Practice Guideline (CPG) Outcome: Ongoing (Interventions Implemented as Appropriate) 10/16/17 0402 Skin Integrity Impairment, Risk/Actual Skin Integrity Impairment, Risk/Actual: Related Risk Factors edema;fluid/nutrition status;surgery/procedure Signs and Symptoms (Skin Integrity Impairment) edema Goal: Skin Integrity/Wound Healing Patient will demonstrate the desired outcomes by discharge/transition of care. Outcome: Ongoing (Interventions Implemented as Appropriate) 10/17/17334 Skin Integrity Impairment, Risk/Actual (Adult) Skin Integrity/Wound Healing making progress toward outcome Problem: Patient Care Overview Goal: Plan of Care Review Outcome: Ongoing (Interventions Implemented as Appropriate) 10/17/17334 Coping/Psychosocial Plan Of Care Reviewed With patient Plan of Care Review Progress improving Goal: Individualization & Mutuality OUTCOME EVALUATION NOTE: OUTCOME SUMMARY: Pt A+O. No complaints of SOB. Pt sleeping in the chair throughout the night. SR SB on tele. PLAN MOVING FORWARD: discharge planning as appropriate INDIVIDUALIZED FALL PREVENTION INTERVENTIONS: Patient-specific fall risk factors per assessment: [current deficits]: cscu cords Assistance [level of assistance required for transfers and ambulation]: SB Supervision [direct monitoring required during toileting and ADLs]: int Surveillance [continuous indirect monitoring]: rounds, tele. Patient-specific fall prevention interventions for sensory deficits provided, if applicable: low bed, call ahn in reach, rings appropriately, non skid socks when out of bed CPG GOAL OUTCOME EVALUATION: Ongoing Plan of Care - Jeremias Rubio RN - 10/16/2017 7:19 PM EDT Problem: Patient Care Overview Goal: Plan of Care Review Outcome: Ongoing (Interventions Implemented as Appropriate) 10/16/171916 Coping/Psychosocial Plan Of Care Reviewed With patient Plan of Care Review Progress improving OUTCOME EVALUATION NOTE: OUTCOME SUMMARY: Cristian is alert and oriented. VSS. Pleasant and cooperative. No reports of pain or discomfort this shift. He has been visited by many friends and family today, had a shower this morning, and has been ambulating on the unit with staff. PLAN MOVING FORWARD: Discharge when medically ready INDIVIDUALIZED FALL PREVENTION INTERVENTIONS: Patient-specific fall risk factors per assessment: [current deficits]:?? Hospitalization; illness; unfamiliar environment; medical equipment; medications Assistance [level of assistance required for transfers and ambulation]: Stand by assist Supervision [direct monitoring required during toileting and ADLs]: Intermittent; able to reliably call for assistance Surveillance [continuous indirect monitoring]:?? Purposeful Hourly Rounding; call ahn in reach; room kept free of obstacles; ekg monitor tech attached and alarms and settings reviewed q 4 hours. Patient-specific fall prevention interventions for sensory deficits provided, if applicable:?? no CPG GOAL OUTCOME EVALUATION: ongoing Goal: Fall Prevention-Safe Patient Handling Outcome: Ongoing (Interventions Implemented as Appropriate) 10/16/17 0800 10/16/17 1800 10/16/17 1917 Positioning Body Position legs elevated;up in chair -- -- Daily Care Interventions Self-Care Promotion -- -- BADL personal objects within reach;independence encouraged;BADL personal routines maintained;safe use of adaptive equipment encouraged Ramires Fall Risk History of Falling 0 -- -- Secondary Diagnosis 15 -- -- Ambulatory Aids 0 -- -- Intravenous Therapy/Heparin/Saline Lock 20 -- -- Gait/Transferring 0 -- -- Mental Status 0 -- -- Score 35 -- -- OTHER Ramires Fall Risk Med -- -- Restraint Interventions Safety Promotion/Fall Prevention activity supervised;fall prevention program maintained;nonskid shoes/slippers when out of bed;safety round/check completed -- -- Activity Activity Type -- ambulated in [place] -- Activity Assistance Provided assistance, stand-by -- -- Assistive Device Utilized -- none -- Goal: Infection Control Outcome: Ongoing (Interventions Implemented as Appropriate) 10/16/17 0800 Safety Interventions Isolation Precautions standard precautions maintained Infection Prevention cohorting utilized;environmental surveillance performed;rest/sleep promoted;single patient room provided Coping Strategies Supportive Measures active listening utilized;decision-making supported;goal setting facilitated;problem solving facilitated;self-care encouraged;self- responsibility promoted;verbalization of feelings encouraged Plan of Care - Isela Vann RN - 10/16/2017 4:06 AM EDT Problem: Skin Integrity Impairment, Risk/Actual (Adult) Goal: Identify Related Risk Factors and Signs and Symptoms Related risk factors and signs and symptoms are identified upon initiation of Human Response Clinical Practice Guideline (CPG) Outcome: Ongoing (Interventions Implemented as Appropriate) 10/16/17 0402 Skin Integrity Impairment, Risk/Actual Skin Integrity Impairment, Risk/Actual: Related Risk Factors edema;fluid/nutrition status;surgery/procedure Signs and Symptoms (Skin Integrity Impairment) edema Goal: Skin Integrity/Wound Healing Patient will demonstrate the desired outcomes by discharge/transition of care. Outcome: Ongoing (Interventions Implemented as Appropriate) 10/16/17401 Skin Integrity Impairment, Risk/Actual (Adult) Skin Integrity/Wound Healing making progress toward outcome Problem: Patient Care Overview Goal: Plan of Care Review Outcome: Ongoing (Interventions Implemented as Appropriate) 10/16/17401 Coping/Psychosocial Plan Of Care Reviewed With patient Plan of Care Review Progress progress toward functional goals as expected Problem: Cardiac Surgery (Adult) Goal: Signs and Symptoms of Listed Potential Problems Will be Absent, Minimized or Managed (Cardiac Surgery) Signs and symptoms of listed potential problems will be absent, minimized or managed by discharge/transition of care (reference Cardiac Surgery (Adult) CPG). Outcome: Ongoing (Interventions Implemented as Appropriate) 10/16/17401 Cardiac Surgery Problems Assessed (Cardiac Surgery) all Problems Present (Cardiac Surgery) dysrhythmia/arrhythmia;fluid imbalance OUTCOME EVALUATION NOTE: OUTCOME SUMMARY: Pt A+O. No complaints of pain or SOB. Around 1944 IV found to be leaking, dilt paused, IV team paged x3. Pt converted to SR at 2125. JADEN Aguilar aware of this. dilt to remain off per JADEN. Pt received a new IV. Pt has been sleeping in throughout the night. PLAN MOVING FORWARD: discharge planning as appropriate INDIVIDUALIZED FALL PREVENTION INTERVENTIONS: Patient-specific fall risk factors per assessment: [current deficits]: cscu cords Assistance [level of assistance required for transfers and ambulation]: SB Supervision [direct monitoring required during toileting and ADLs]: int Surveillance [continuous indirect monitoring]: rounds, tele. Patient-specific fall prevention interventions for sensory deficits provided, if applicable: low bed, call ahn in reach, rings appropriately, non skid socks when out of bed CPG GOAL OUTCOME EVALUATION: Ongoing Plan of Care - Jeremias Rubio RN - 10/15/2017 3:10 PM EDT Problem: Patient Care Overview Goal: Plan of Care Review Outcome: Ongoing (Interventions Implemented as Appropriate) 10/15/17 1506 Coping/Psychosocial Plan Of Care Reviewed With patient Plan of Care Review Progress improving OUTCOME EVALUATION NOTE: OUTCOME SUMMARY: Cristian is alert and oriented; VSS; and pleasant and cooperative. No reports of pain or discomfort thisshift. He has had a good day today. He has been visiting with friends and family this shift. PLAN MOVING FORWARD: Rhythm rate control; DC home when medically ready INDIVIDUALIZED FALL PREVENTION INTERVENTIONS: Patient-specific fall risk factors per assessment: [current deficits]:?? Hospitalization; illness; unfamiliar environment; medical equipment; medications Assistance [level of assistance required for transfers and ambulation]: Independent/Stand by Supervision [direct monitoring required during toileting and ADLs]: Intermittent; able to reliably call for assistance Surveillance [continuous indirect monitoring]:?? Purposeful Hourly Rounding; call ahn in reach; room kept free of obstacles; ekg monitor tech attached and alarms and settings reviewed q 4 hours. Patient-specific fall prevention interventions for sensory deficits provided, if applicable:?? no CPG GOAL OUTCOME EVALUATION: ongoing Goal: Fall Prevention-Safe Patient Handling Outcome: Ongoing (Interventions Implemented as Appropriate) 10/15/17 0800 10/15/17 1506 Positioning Body Position up in chair -- Daily Care Interventions Self-Care Promotion -- independence encouraged;BADL personal objects within reach;BADL personal routines maintained;safe use of adaptive equipment encouraged Ramires Fall Risk History of Falling 0 -- Secondary Diagnosis 15 -- Ambulatory Aids 0 -- Intravenous Therapy/Heparin/Saline Lock 20 -- Gait/Transferring 10 -- Mental Status 0 -- Score 45 -- OTHER Ramires Fall Risk High -- Restraint Interventions Safety Promotion/Fall Prevention activity supervised;fall prevention program maintained;nonskid shoes/slippers when out of bed;safety round/check completed -- Activity Activity Type activity adjusted per tolerance -- Activity Assistance Provided assistance, stand-by -- Assistive Device Utilized none -- Goal: Infection Control Outcome: Ongoing (Interventions Implemented as Appropriate) 10/15/17 0800 Safety Interventions Isolation Precautions standard precautions maintained Infection Prevention cohorting utilized;environmental surveillance performed;rest/sleep promoted;single patient room provided Coping Strategies Supportive Measures active listening utilized;decision-making supported;positive reinforcement provided;problem solving facilitated;self-care encouraged;self- responsibility promoted;verbalization of feelings encouraged Plan of Care - Kedar St RN - 10/14/2017 4:28 PM EDT Problem: Patient Care Overview Goal: Plan of Care Review Outcome: Ongoing (Interventions Implemented as Appropriate) 10/09/17 0650 10/14/17 0746 Coping/Psychosocial Plan Of Care Reviewed With -- patient Plan of Care Review Progress improving -- OUTCOME EVALUATION NOTE: OUTCOME SUMMARY: Cristian continued to be in Afib for duration of shift. Complaints of bloating with some discomfort. Ambulated to bathroom and in room. I&O as charted. Persist ant cough. PLAN MOVING FORWARD: Increase metoprolol INDIVIDUALIZED FALL PREVENTION INTERVENTIONS: Patient-specific fall risk factors per assessment: [current deficits]: CSCU tele cords, unfamiliar environment, recent operation Assistance [level of assistance required for transfers and ambulation]: SBA Supervision [direct monitoring required during toileting and ADLs]: Eyes on Surveillance [continuous indirect monitoring]: Room by nurses station, tele, purposeful rounding Patient-specific fall prevention interventions for sensory deficits provided, if applicable: [X] No CPG GOAL OUTCOME EVALUATION: Goal: Fall Prevention-Safe Patient Handling Outcome: Ongoing (Interventions Implemented as Appropriate) 10/10/17 1520 10/13/17 2110 10/14/17 0746 Positioning Body Position -- -- independent Daily Care Interventions Self-Care Promotion independence encouraged -- -- Ramires Fall Risk History of Falling -- -- 0 Secondary Diagnosis -- -- 15 Ambulatory Aids -- -- 0 Intravenous Therapy/Heparin/Saline Lock -- -- 20 Gait/Transferring -- -- 0 Mental Status -- -- 0 Score -- -- 35 OTHER Ramires Fall Risk -- -- Med Restraint Interventions Safety Promotion/Fall Prevention -- -- -- Activity Activity Type -- -- activity adjusted per tolerance Activity Assistance Provided -- assistance, stand-by -- Assistive Device Utilized -- none -- 10/14/17 1600 Positioning Body Position -- Daily Care Interventions Self-Care Promotion -- Ramires Fall Risk History of Falling -- Secondary Diagnosis -- Ambulatory Aids -- Intravenous Therapy/Heparin/Saline Lock -- Gait/Transferring -- Mental Status -- Score -- OTHER Ramires Fall Risk -- Restraint Interventions Safety Promotion/Fall Prevention safety round/check completed Activity Activity Type -- Activity Assistance Provided -- Assistive Device Utilized -- Goal: Infection Control Outcome: Ongoing (Interventions Implemented as Appropriate) 10/14/17 0746 Safety Interventions Isolation Precautions standard precautions maintained Infection Prevention environmental surveillance performed;personal protective equipment utilized;rest/sleep promoted;single patient room provided Coping Strategies Supportive Measures active listening utilized;verbalization of feelings encouraged;problem solving facilitated;goal setting facilitated Goal: Discharge Needs Assessment Outcome: Ongoing (Interventions Implemented as Appropriate) 10/09/17 174 Discharge Needs Assessment Concerns To Be Addressed no discharge needs identified Readmission Within The Last 30 Days no previous admission in last 30 days Equipment Needed After Discharge none Discharge Disposition still a patient Current Health Anticipated Changes Related to Illness none Activity/Self Care Review of Systems Equipment Currently Used at Home none Living Environment Transportation Available family or friend will provide Goal: Interdisciplinary Rounds/Family Conf Outcome: Ongoing (Interventions Implemented as Appropriate) 10/09/171746 Interdisciplinary Rounds/Family Conf Participants nursing;patient Problem: Cardiac Surgery (Adult) Goal: Signs and Symptoms of Listed Potential Problems Will be Absent, Minimized or Managed (Cardiac Surgery) Signs and symptoms of listed potential problems will be absent, minimized or managed by discharge/transition of care (reference Cardiac Surgery (Adult) CPG). Outcome: Ongoing (Interventions Implemented as Appropriate) 10/14/17 0746 Cardiac Surgery Problems Assessed (Cardiac Surgery) all Problems Present (Cardiac Surgery) dysrhythmia/arrhythmia Plan of Care - Griffin Wolfe, PT - 10/13/2017 11:46 AM EDT Physical Therapy Treatment Treatment Number PT: (P) 2 Pertinent History of Current Problem: Cristian Miner is a 61 y.o. male with CAD, AF, HTN, MICHELLE, former smoker, BPH, baseline LVEF of 65% how is now S/P CABGx2 and MV repair. Post op course complicated by a-fib, now s/p cardioversion, stomach pain and nausea. Precautions/Restrictions: fall, sternal, cardiac Assessment: Pt seen for continued gait and stairs. He has met all inpt goals and understands precautions. Able to walk without a device on level and on stairs. He is SOB with exertion and has poor endurance, but should improve with walking and exercise in cardiac rehab outpt program. Please see the flow sheet below for patient details and mobility. Staff Mobility Recommendations Supervision of 1 Anticipated Discharge Disposition: (S) (P) home with home health, home with assist GRIFFIN WOLFE PT Pager: [phone] Inpatient Physical Therapy 10/13/17 1146 Rehab Evaluation Document Type therapy note (daily note) Total Evaluation Minutes, Physical Therapy 15 te-f Patient Effort good Symptoms Noted During/After Treatment none General Information General Observations of Patient cardioversion yesterday, sternal wires out Treatment Number PT 2 Vital Signs Heart Rate 68 (85 with walking) O2 Device RA Pain Scale/Rating Pain Assessment Scale Numbers (Numeric Rating Pain Scale) Pain Level 2 Pain Goal (with cough) Bed Mobility Assessment/Treatment Comment (Bed Mobility) nt, pt will sleep in recliner at home Transfer Assessment/Treatment [place] (Sit-Stand Transfers) independent [place] (Stand-Sit Transfers) independent Npz-Sgily-Hua Assistive Device (Transfers) rolling walker Comment (Transfers) improved balance. Gait Assessment/Treatment [place] (Gait) supervision required Distance in Feet (Gait) 200 Gait Pattern Analysis (slow , leans side to side) Comment (Gait) steadier today, increased rr with walking Stairs Assessment/Treatment Number of Stairs (Stairs) 5 Handrail Location (Stairs) left side (ascending) [place] (Stairs) supervision required Comment (Stairs) step over step wtih rail. Motor Skills/Interventions Additional Documentation (reveiwed precautions with present) Gait Training Goal Gait Training Goal, Date Established 10/12/17 Gait Training Goal, Time to Achieve 2 - 3 days Gait Training Goal, [place] Level conditional independence Gait Training Goal, Distance to Achieve 150 Gait Training Goal, Additional Goal pt will go up and down 5 steps with rail and supervison Gait Training Goal, Outcome goal met Transfer Training Goal Transfer Training Goal, Date Established 10/12/17 Transfer Training Goal, Time to Achieve 2 - 3 days Transfer Training Goal, Activity Type ite-ud-jeaef/zqqun-qz-xbt Transfer Train Goal, [place] Level independent Transfer Training Goal, Outcome goal met Clinical Impression Anticipated Discharge Disposition home with home health;home with assist Op Note - Juan Alberto Dunlap MD - 10/12/2017 1:44 PM EDT [facility] [place] Operative Note Patient Name: Cristian Miner : [id number] MR#: [id number] Case Date: 10/07/2017 Surgeon: Surgeon(s) and Role: * Juan Alberto Dunlap MD - Primary * Cal Watson PA - Physician Stretching Machine Tender Frame * Emily Avina PA - Physician Stretching Machine Tender Frame ?? Preoperative diagnosis: CAD, MR ?? Postoperative diagnosis: CAD, MR, same, severe prebyapss MR (restricted motion, annular dilitation).and pulmonary hypertension. Post bypass JAYLON, No residual MR, EF 50%, significant decrease in PA pressures. ?? Procedure(s) (LRB): ENDOSCOPIC HARVEST VEIN(S) FOR CABG (WRVU 0.31) (N/A) @VALVULOPLASTY, MITRAL VALVE, W\CPB; W\PROSTHETIC RING (WRVU 43.28) (N/A) @CABG, VEIN ONLY;TWO CORONARY VENOUS GRAFTS (WRVU 38.45) (N/A) MV repair, reduction annuloplasty with a 30mm physio II CABGx2, SVG-> OM, SVG->PDA ?? Anesthesia: General/ Harjinder ?? Findings: severe prebyapss MR (restricted motion, annular dilitation). and pulmonary hypertension. Post bypass JAYLON, No residual MR, EF 50%, significant decrease in PA pressures. ? Drains: Mediastinal ?? Specimens removed during surgery: none ?? Procedure Description: The patient was brought to the operating room placed upon the operating table in supine position. Following the induction of general anesthetic by endotracheal technique he was prepped and draped usinga sterile prep. Simultaneous incisions were made in his midsternal region as well as in his lower extremity. The incision the lower extremity was utilized to obtain portions of the greater saphenous vein using endoscopic techniques. These wounds were then closed using a layered absorbable suture closure. The wound in the midsternum was carried down through the sternum was divided with assault. The patient was systemically heparinized a mediastinal retractor was positioned. [facility] he had significant elevation in his pulmonary artery pressure and his mitral regurgitation becamemuch more severe. He was cannulated brought on bypass the aorta was crossclamped the heart was arrested with cold hyperkalemic blood cardioplegia. Additional doses of cardioplegia were given throughoutthe cross- clamp interval is indicated by any significant rise in myocardial septal temperature or the return of any cardiac electrical activity. The distal vein grafts were performed first using 4 mm arteriotomies and 7-0 Prolene sutures in a running fashion. The mitral valve was then approached via an incision behind the interatrial septum after fully developing Waterston's groove. The left atrium was entered self-retaining retractor was positioned and the above findings are noted. The mitral annulus is circumferentially rammed with polyester mattress sutures. The anterior leaflet appeared to bestapproximate that of a 32 mm ring therefore 30 mm reduction annuloplasty with a physio-to ring was selected and secured into position. Saline leak testing demonstrated no residual MR. The left atrium was closed using 2 running 3-0 Prolene sutures were tied upon themselves. The proximal coronary anastomosis was then completed with a 4 mm aortic punch and running 6-0 Prolene suture. The patient placed in a headdown position with aortic root vent placed on high suction blood was transfused to the patient and the heart was massaged to remove air. The cross- clamp was then removed and he was fully rewarmed on bypass. He was electrically defibrillated right atrial and right ventricular pacing wires were positioned. During rewarming several maneuvers were executed remove all residual air from his left ventricular cavity as was confirmed by intraoperative echo. Once rewarmed he was from bypass without difficulty, the above echo findings are noted. He was decannulated hemostasis was secured after protamine sulfate of been administered. Mediastinal drains are positioned. The sternum was reapproximated with surgical wire in the soft tissues anterior to the sternum reapproximated using layered absorbable suture closure. Sterile dressings were applied and he was taken to the cardiothoracic intensive care unit in hemodynamically stable condition. Attestation: Case Date: 10/07/2017 I was present and I participated during the entire procedure (does not need to include opening and closing). JUAN ALBERTO DUNLAP MD 10/12/2017 Plan of Care - Griffin Wolfe, PT - 10/12/2017 9:32 AM EDT Physical Therapy Evaluation Pertinent History of Current Problem: Cristian Miner is a 61 y.o. male with CAD, AF, HTN, MICHELLE, former smoker, BPH, baseline LVEF of 65% how is now S/P CABGx2 and MV repair. Post op course complicated by a-fib, stomach pain and nausea. Precautions/Restrictions: fall, sternal, cardiac Assessment: Pt is limited by his body habitus, sternal precautions, pain, fair standing balance, SOBand a-fib with rvr during gait. He was able to walk 150' with cg and should do well after cardioversion. Will see for stairs and progression of gait. Please see associated flow sheet data below for objective information regarding today's session Staff Mobility Recommendations: Assist of 1 Anticipated Discharge Disposition: home with assist, home with home health (with his ) GRIFFIN WOLFE, PT Pager: [phone] Inpatient Physical Therapy 10/12/17 7603 Rehab Evaluation Document Type evaluation Total Evaluation Minutes, Physical Therapy 23 Patient Effort good Symptoms Noted During/After Treatment none General Information Patient/Family/Caregiver Comments/Observations I have pain with coughing. Pertinent History of Current Problem Cristian Miner is a 61 y.o. male with CAD, AF, HTN, MICHELLE, former smoker, BPH, baseline LVEF of 65% how is now S/P CABGx2 and MV repair. Post op course complicated by a-fib, now s/p cardioversion, stomach pain and nausea. Hearing Precautions/Limitations WFL Precautions/Restrictions fall;sternal;cardiac Treatment Number PT 1 Living Environment Patient population Adult Living Environment Living Environment Comment pt lives with his . she is a caregiver for a man who also lives with them. He had been able to walk independently without a device. 5 steps with rail into the home. Vital Signs Heart Rate 90 (at rest; 120-140 with walking in a-fib) Cognitive Assessment/Intervention Additional Documentation Cognitive Assessment Interventions (Group) Cognitive Assessment Interventions Behavior/Mood Observations (Cognitive) WNL/WFL;cooperative Orientation Status (Cognitive) oriented x 4 Attention (Cognitive) WNL/WFL Follows Commands/Answers Questions (Cognitive) 100% of the time Pain Scale/Rating Pain Assessment Scale Numbers (Numeric Rating Pain Scale) Pain Level 2 ROM (Range of Motion) Additional Documentation General Assessment (Group) General Range of Motion (limited by body habitus.) MMT (Manual Muscle Testing) Additional Documentation General Assessment (Group) General Assessment General Manual Muscle Testing Assessment (at least 3/5; wfl) Mobility Assessment/Training Additional Documentation Bed Mobility Assessment/Treatment (Group);Gait Assessment/Treatment (Group);Stairs Assessment/Treatment (Group);Transfer Assessment/Treatment (Group) Bed Mobility Assessment/Treatment Comment (Bed Mobility) nt, pt wants to stay in recliner at home. Transfer Assessment/Treatment [place] (Sit-Stand Transfers) contact guard assist [place] (Stand-Sit Transfers) contact guard assist Comment (Transfers) good standing with min unsteadiness Gait Assessment/Treatment [place] (Gait) minimum assist (75% patient effort) Distance in Feet (Gait) 150 Impairments (Gait) balance impaired (poor endurance) Motor Skills/Interventions Additional Documentation (reviewed ex's and precautions) Sensory Assessment/Intervention Additional Documentation General Sensory Assessment (Group) General Sensory Assessment Sensory General Assessment no sensation deficits identified Plan of Care Review Plan Of Care Reviewed With patient Physical Therapy Goal Types Physical Therapy Goal Types Gait Training Goal (Group);Transfer Training Goal (Group) Gait Training Goal Gait Training Goal, Date Established 10/12/17 Gait Training Goal, Time to Achieve 2 - 3 days Gait Training Goal, [place] Level conditional independence Gait Training Goal, Distance to Achieve 150 Gait Training Goal, Additional Goal pt will go up and down 5 steps with rail and supervison Gait Training Goal, Outcome goal ongoing Transfer Training Goal Transfer Training Goal, Date Established 10/12/17 Transfer Training Goal, Time to Achieve 2 - 3 days Transfer Training Goal, Activity Type [id number] Transfer Train Goal, [place] Level independent Transfer Training Goal, Outcome goal ongoing Clinical Impression Therapy Frequency 1-3 more visits Anticipated Discharge Disposition home with assist;home with home health (with his ) General Interventions Additional Documentation Planned Therapy Interventions (Group) Planned Therapy Interventions gait training;stair training;transfer training 2016 PT Evaluation Code Rationale: ?? Diagnosis & Pertinent Co-Morbidities, personal factors, and present illness affecting Plan ofCare: Patient Active Problem List Diagnosis Code ??? CAD (coronary artery disease) I25.10 ??? Morbid obesity E66.01 ??? Atrial fibrillation I48.91 ??? MICHELLE (obstructive sleep apnea) G47.33 ??? SOB (shortness of breath) R06.02 ??? Palpitations R00.2 ??? Mitral regurgitation I34.0 Additional personal factors or co-morbidities that impact plan: ?? Total # of Factors: 0 1-2 3+ x ?? Examination of body system impairments, functional limitations and behaviors, and/or participation restrictions. Addressing 1-2 elements Addressing 3 + elements x Addressing 4 + elements ?? Clinical presentation: See assessment above. Stable/Uncomplicated Evolving/Fluctuating Symptoms Unstable/Unpredictable x ?? Clinical decision making of moderate complexity based on pt's functional performance as outlined in this evaluation. Consult Note - Kaci Bacon RN - 10/12/2017 9:30 AM EDT [facility] Cristian Miner was seen today regarding participation in the outpatient Phase 2 Cardiac Rehabilitation at [facility] . The patient agrees to a referral to this program. The referral will be sent at discharge and the patient should be contacted by the Program within 1- 2 weeks from discharge. Plan of Care - Leah Vaz RN - 10/12/2017 5:10 AM EDT Problem: Skin Integrity Impairment, Risk/Actual (Adult) Goal: Identify Related Risk Factors and Signs and Symptoms Related risk factors and signs and symptoms are identified upon initiation of Human Response Clinical Practice Guideline (CPG) Outcome: Ongoing (Interventions Implemented as Appropriate) 10/10/17 1520 Skin Integrity Impairment, Risk/Actual Skin Integrity Impairment, Risk/Actual: Related Risk Factors edema;surgery/procedure;immobility;fluid/nutrition status;tissue perfusion impaired Signs and Symptoms (Skin Integrity Impairment) edema Goal: Skin Integrity/Wound Healing Patient will demonstrate the desired outcomes by discharge/transition of care. Outcome: Ongoing (Interventions Implemented as Appropriate) 10/09/17 1751 Skin Integrity Impairment, Risk/Actual (Adult) Skin Integrity/Wound Healing making progress toward outcome Problem: Patient Care Overview Goal: Plan of Care Review Outcome: Ongoing (Interventions Implemented as Appropriate) OUTCOME EVALUATION NOTE: OUTCOME SUMMARY: Cristian had an uneventful night. A&O. See doc flow sheet for vital signs. Pain managed with scheduled tylenol and PRN oxy. Afib on telemetry. Amio gtt maintained. NPO at midnight. Will continue to monitor. PLAN MOVING FORWARD: Cardioversion today INDIVIDUALIZED FALL PREVENTION INTERVENTIONS: Patient-specific fall risk factors per assessment: [current deficits]: Unfamiliar environment, telemetry wires, recent surgery, generalized weakness, oxygen tubing Assistance [level of assistance required for transfers and ambulation]: SBA Supervision [direct monitoring required during toileting and ADLs]: SBA Surveillance [continuous indirect monitoring]: Telemetry, hourly rounding, pulse ox Patient-specific fall prevention interventions for sensory deficits provided, if applicable: yes CPG GOAL OUTCOME EVALUATION: Ongoing Goal: Fall Prevention-Safe Patient Handling Outcome: Ongoing (Interventions Implemented as Appropriate) 10/10/17 1520 10/11/17201510/11/172128 Positioning Body Position -- -- independent Daily Care Interventions Self-Care Promotion independence encouraged -- -- Ramires Fall Risk History of Falling -- -- 0 Secondary Diagnosis -- -- 15 Ambulatory Aids -- -- 0 Intravenous Therapy/Heparin/Saline Lock -- -- 20 Gait/Transferring -- -- 0 Mental Status -- -- 0 Score -- -- 35 OTHER Ramires Fall Risk -- -- Med Restraint Interventions Safety Promotion/Fall Prevention -- -- activity supervised;fall prevention program maintained;nonskid shoes/slippers when out of bed;safety round/check completed Activity Activity Type -- -- activity adjusted per tolerance Activity Assistance Provided -- -- assistance, stand-by Assistive Device Utilized -- none;oxygen -- Goal: Infection Control Outcome: Ongoing (Interventions Implemented as Appropriate) 10/11/172128 Safety Interventions Isolation Precautions standard precautions maintained Infection Prevention rest/sleep promoted;single patient room provided Coping Strategies Supportive Measures active listening utilized;self-care encouraged Goal: Discharge Needs Assessment Outcome: Ongoing (Interventions Implemented as Appropriate) 10/09/171746 Discharge Needs Assessment Discharge Disposition still a patient Current Health Anticipated Changes Related to Illness none Activity/Self Care Review of Systems Equipment Currently Used at Home none Living Environment Transportation Available family or friend will provide Problem: Cardiac Surgery (Adult) Goal: Signs and Symptoms of Listed Potential Problems Will be Absent, Minimized or Managed (Cardiac Surgery) Signs and symptoms of listed potential problems will be absent, minimized or managed by discharge/transition of care (reference Cardiac Surgery (Adult) CPG). Outcome: Ongoing (Interventions Implemented as Appropriate) 10/09/171999 Cardiac Surgery Problems Assessed (Cardiac Surgery) all Problems Present (Cardiac Surgery) pain;dysrhythmia/arrhythmia Plan of Care - Celina Holm RN - 10/11/2017 5:36 PM EDT Problem: Patient Care Overview Goal: Plan of Care Review Outcome: Ongoing (Interventions Implemented as Appropriate) 10/09/17 0650 10/11/17 0749 Coping/Psychosocial Plan Of Care Reviewed With -- patient;spouse Plan of Care Review Progress improving -- OUTCOME EVALUATION NOTE: OUTCOME SUMMARY: Cristian is A&Ox4, reports [place] and SOB. Denies CP. Mid Incision open to air, clean dry, intact and well approximated. Left knee clean dry and no drainage. Pain is controlled with scheduled tylenol and PRN oxycodone. Lasix PO given. Amio gtt initiated and maintained. On 2L NC. EKG performed Tele AFIB HR 80s-120s PLAN MOVING FORWARD: Ambulation, pain control, wean off O2 INDIVIDUALIZED FALL PREVENTION INTERVENTIONS: Patient-specific fall risk factors per assessment: [current deficits]: Generalized weakness Assistance [level of assistance required for transfers and ambulation]: SBA Supervision [direct monitoring required during toileting and ADLs]: Arms reach Surveillance [continuous indirect monitoring]: tele Patient-specific fall prevention interventions for sensory deficits provided, if applicable: [X] Yes CPG GOAL OUTCOME EVALUATION: Ongoing Goal: Fall Prevention-Safe Patient Handling Outcome: Ongoing (Interventions Implemented as Appropriate) 10/10/17 1520 10/11/17 0749 10/11/17 1340 Positioning Body Position -- up in chair -- Daily Care Interventions Self-Care Promotion independence encouraged -- -- Ramires Fall Risk History of Falling -- 0 -- Secondary Diagnosis -- 15 -- Ambulatory Aids -- 0 -- Intravenous Therapy/Heparin/Saline Lock -- 20 -- Gait/Transferring -- 10 -- Mental Status -- 0 -- Score -- 45 -- OTHER Ramires Fall Risk -- High -- Restraint Interventions Safety Promotion/Fall Prevention -- activity supervised;safety round/check completed;nonskid shoes/slippers when out of bed;fall prevention program maintained -- Activity Activity Type -- -- ambulated in bailey Activity Assistance Provided -- -- assistance, stand-by Assistive Device Utilized -- -- oxygen Goal: Infection Control Outcome: Ongoing (Interventions Implemented as Appropriate) 10/11/17 0749 Safety Interventions Isolation Precautions standard precautions maintained Infection Prevention rest/sleep promoted Coping Strategies Supportive Measures active listening utilized;verbalization of feelings encouraged Initial Assessments - Jyotsna Vann RN - 10/11/2017 1:07 PM EDT Office of Care Management Initial Assessment Jyotsna Vann RN reviewed record and discussed patient with Care Team. Source of Information: patient and his , Jessica, & [id number] Seema at bedside Introduced self/reviewed role; services accepted. Reason for Hospitalization: Past Medical History: Diagnosis Date ??? CAD (coronary artery disease) angioplasty 1980s Past Surgical History: Procedure Laterality Date ??? KNEE ARTHROSCOPY ??? LAPAROTOMY diverticula ? ? PRG JAYLON REAL TIME IMG 2D W PRB IMG ACQUIS I&R N/A 09/15/2017 TRANSESOPHAGEAL ECHOCARDIOGRAM (WRVU 2.55) performed by Td Ayala MD at [facility] OR ??? PRO CABG, VEIN, TWO N/A 10/07/2017 @CABG, VEIN ONLY;TWO CORONARY VENOUS GRAFTS (WRVU 38.45) performed by Juan Alberto Dunlap MD at [facility] OR ??? PRO ENDOSCOPY W/VIDEO-ASST VEIN HARVEST, CABG N/A 10/07/2017 ENDOSCOPIC HARVEST VEIN(S) FOR CABG (WRVU 0.31) performed by Juan Alberto Dunlap MD at [facility] OR ??? PRO MITRALPLASTY W PROSTHETIC RING N/A 10/07/2017 @VALVULOPLASTY, MITRAL VALVE, W\CPB; W\PROSTHETIC RING (WRVU 43.28) performed by Juan Alberto Dunlap MD at [facility] Hospitalizations Within the Past 30 Days: ? Anticipated Length Of Stay (If known): 5 to 7 days Current Decision-Making Capacity: OX4, can make his own medical decisions Advance Care Planning: none on file, RNDAYAN gave patient [place]-AD's to review & complete at home. Patient chooses his , Jessica Miner, [facility], . Current Coping/Education/Information Needs: patient is sitting up in recliner, awake, alert, answersquestions appropriately, demonstrates understanding of his current health situation. States he put up all my wood before surgery since I knew I couldn't do it after Current Functional Ability: standby assist Functional Status Prior to Admission: independent w/ADL's, cuts his own wood, etc. Home Environment: lives with his in single family home, split level, 5 stairs, no mobility issues Social & Family Supports/Community Resources: support from his Jessica and other family members Behavioral Health History: none listed in eDh Substance Use/Abuse: Social History Substance Use Topics ??? Smoking status: Former Smoker Quit date: 08/17/1995 ??? Smokeless tobacco: Never Used ??? Alcohol use Yes Comment: one a month Other Pertinent/Service Specific Information: none Health/Prescription Coverage: Primary Insurance: MEDICAID [place] Secondary Insurance: N/A Prescription Coverage: yes, no financial concerns Preferred Pharmacy: [facility] - [address] [place] [address] ? [address] [place] [id number] ? Other: none Primary Care Provider: NORBERTO Cage [phone] Patient/Caregiver Goals of Treatment: per medical team recommendations at discharge Potential Needs for Transition of Care: Rehab/SNF: no Home Health: will need VNA services at discharge DME: no Dialysis: no Community Resources: unknown Transportation: ride home with his Jessica Other: none Anticipated Barriers to Discharge/Special Considerations: none anticipated at this time Assessment: s/p CABG X2 and MV repair, in AFIB, scheduled for cardioversion Tue. Plan: discharge to home when med ready. Will need VNA services at discharge, possible d/c /Tuesday. A member of the Care Management team will continue to monitor progress, follow for continuity of care and assist with transition of care planning. Jyotsna Vann RN Pager: [phone] Consult Note - Cande Laura MD - 10/11/2017 8:43 AM EDT Images from the original note were not included. CARDIAC ELECTROPHYSIOLOGY CONSULT NOTE Date of Admission: 10/07/2017 ( Hospital Day 4 days ) Responsible Attending: Juan Alberto Dunlap MD Current Active Problems Active Hospital Problems Diagnosis ??? CAD (coronary artery disease) Resolved Hospital Problems Diagnosis Date Resolved No resolved problems to display. Patient ID: Cristian Miner is a 61 y.o. male with PMHx paroxysmal atrial fibrillation (previously on apixaban), prediabetes, and MICHELLE, who is now POD#4 s/p 2-v CABG (LCx, RCA 10/07) with post-operative course c/b paroxysmal atrial fibrillation. Per chart review, patient has a prior known history CAD with POBA to RCA and mid-LAD disease (60%) from 1995. Patient was seen at [facility] for atrial fibrillation with RVR at which point he was diagnosed with MR and started on apixaban. Patient reports no history of orthopnea, PND or leg swelling. He does have exertional shortness of breath that was progressive leading to his diagnosis of atrial fibrillation. In light of his severe symptomatic MR, patient underwent two-vessel bypass grafting and mitral valverepair on 10/07. He was noted to convert from NSR to atrial fibrillation with rates ~140s ~0330 on Monday 10/09. Over the course of that morning, given three boluses of amiodarone (150 mg x2) and startedon a drip. Transitioned to PO amio (200 mg x 2) on 10/10. Converted to sinus tien with rates down to50s (was paced at 80 bpm) on 10/10 at 0500, and converted back to afib later that night ~2100 with rates 100-110. He is currently in rate- controlled atrial fibrillation. Patient states he can feel palpitations when he is in atrial fibrillation and is somewhat short of breath. He denies chest pain or pressure, and otherwise only endorses mild TTP at sternotomy site. Telemetry: atrial fibrillation at HR 100-110 bpm Family History: No known history of CAD; no history of SCD. Family History Problem Relation Age of Onset ??? Cardiomyopathy Father Social History: Occupation: retired Tobacco: former smoker, quit after AR in 1995 EtOH: Rare Drugs/Illicits: None Social History Social History ??? Marital status: Spouse name: N/A ??? Number of children: N/A ??? Years of education: N/A Occupational History ??? Not on file. Social History Main Topics ??? Smoking status: Former Smoker Quit date: 08/17/1995 ??? Smokeless tobacco: Never Used ??? Alcohol use Yes Comment: one a month ??? Drug use: No ??? Sexual activity: Not on file Other Topics Concern ??? Not on file Social History Narrative Physical Exam: Vitals: Temperature Temp: 36.6 ??C (97.9 ??F) Temp: [36.6 ??C (97.9 ??F)-37.2 ??C (99 ??F)] Heart Rate Heart Rate: 89 Heart Rate: [59-115] Blood Pressure BP: 108/74 BP: (98-120)/(55-90) Respiratory Rate Resp: 19 Resp: [18-29] SpO2 SpO2: 98 % SpO2: [93 %-98 %] Admit weight 128.6 kg Current Weight Weight: 135.2 kg (298 lb 1 oz) I/O: Intake/Output Summary (Last 24 hours) at 10/11/17 0843 Last data filed at 10/11/17 0745 Gross per 24 hour Intake 760 ml Output 700 ml Net 60 ml Body mass index is 45.7 kg/(m^2). General: alert, conversant male appears in NAD HEENT: NCAT, PERRLA, EOMI, nares/OP clear, MM + pink Neck: JVP does not appear elevated above sternal angle Heart: Irregularly irregular, normal S1 and S2; no m/r/g appreciated Chest: Midline sternotomy, appears well-healing without drainage Lungs: Distant, dull at bases b/l without rhonchi/wheezes/rales Extremities: Full ROM; +2 BLE edema to knees; pulses 2+ bilaterally Neuro: AOx3, non-focal Skin: Warm, dry; no rashes or lesions Mallampati Class: II ASA class: II Sedation: Moderate ?? Medications: Scheduled Meds: ??? warfarin 1 mg Oral Once ??? ipratropium-albuterol 3 mL Nebulization Q6H ??? AMIOdarone 200 mg Oral Daily ??? bisacodyl 10 mg Rectal Daily ??? sodium chloride 0.9 % 5 mL Intravenous Q8H ??? sodium chloride 0.9 % 5 mL Intravenous Q12H ??? warfarin (COUMADIN) daily order reminder Oral Q24H ??? furosemide 20 mg Oral BID ??? meTOPROLOL 12.5 mg Oral 2 times per day ??? atorvastatin 40 mg Oral QPM ??? tamsulosin 0.4 mg Oral Daily ??? pantoprazole 40 mg Oral Daily Or ??? pantoprazole 40 mg Intravenous Daily ??? aspirin 81 mg Oral Daily Or ??? aspirin 300 mg Rectal Daily ??? magnesium hydroxide 10 mL Oral Daily ??? acetaminophen 1,000 mg Oral Q6H CARLOS ENRIQUE Continuous Infusions: PRN Meds:.sodium chloride 0.9 %, lidocaine, ondansetron, oxyCODONE Labs: Recent Results (from the past 24 hour(s)) Prothrombin Time Result Value Ref Range PT 20.1 (H) 9.4 - 12.5 sec INR 1.8 Basic Metabolic Panel (non-fasting) Result Value Ref Range Glucose Lvl 136 65 - 199 mg/dL BUN 21 (H) 10 - 20 mg/dL Creatinine 0.68 (L) 0.80 - 1.50 mg/dL Sodium 132 (L) 135 - 145 mmol/L Potassium 3.9 3.5 - 5.0 mmol/L Chloride 96 (L) 98 - 107 mmol/L CO2 25 22 - 31 mmol/L Anion Gap 11 5 - 15 mmol/L Calcium 8.2 (L) 8.5 - 10.5 mg/dL eGFR 105 >=60 mL/min/1.73 m?? eGFR 121 >=60 mL/min/1.73 m?? Hemogram Result Value Ref Range WBC 15.9 (H) 4.0 - 9.5 x10(3)/mcL RBC 4.21 (L) 4.58 - 5.54 x10(6)/mcL Hemoglobin 12.3 (L) 13.7 - 16.5 gm/dL Hematocrit 36.6 (L) 40.5 - 48.5 % MCV 86.9 82.9 - 93.1 fL MCH 29.2 27.5 - 32.1 pg MCHC 33.6 32.0 - 35.7 gm/dL Platelets 106 (L) 145 - 357 x10(3)/mcL RDWSD 42.9 36.0 - 45.0 fL RDWCV 13.4 11.4 - 13.8 % MPV 12.4 7.6 - 12.9 fL nRBC % Auto 0.0 % nRBC Abs Auto 0.000 0.000 - 0.000 x10(3)/mcL Differential, Automated Result Value Ref Range Neutrophils % 85.5 % Neutr Abs (ANC) 13.63 (H) 1.70 - 6.10 x10(3)/mcL Lymphocytes % 4.6 % Lymphocytes Abs 0.7 (L) 0.9 - 3.2 x10(3)/mcL Monocytes % 8.5 % Monocyte Abs 1.4 (H) 0.3 - 0.9 x10(3)/mcL Eosinophils % 0.1 % Eosinophils Abs 0.0 0.0 - 0.4 x10(3)/mcL Basophils % 0.4 % Basophils Abs 0.1 0.0 - 0.1 x10(3)/mcL Immature Gran % 0.90 % Nell Gran Abs 0.14 (H) 0.00 - 0.04 x10(3)/mcL Prothrombin Time Result Value Ref Range PT 28.1 (H) 9.4 - 12.5 sec INR 2.5 Potassium Result Value Ref Range Potassium 4.3 3.5 - 5.0 mmol/L Relevant Cardiac Studies: ECG (10/07/17): NSR with vent rate 87 bpm; STEs in inferior leads consistent with acute inferior AR JAYLON (09/15/17): 1. Normal biventricular size and systolic function, LVEF65%. No wall motion abnormalities. Normal LVwall thickness. 2. There is malcoaptation of the mitral leaflets resulting in moderate to severe MR that is posteriorly directed (EROA0.31). 3. Other findings as noted below. Cardiac Catheterization (08/16/17): * Two vessel coronary artery disease (LCX and RCA) * Mild pulmonary hypertension * Elevated pulmonary capillary wedge pressure * Decreased cardiac output Imaging: CXR (10/10/17): 1. Removal of endotracheal tube, PA catheter, mediastinal drains. 2. Improved aeration of the lungs with clearing of pulmonary edema. 3. Increasing bilateral pleural effusions, right greater than left. Assessment: Cristian Miner is a 61 y.o. male with PMHx paroxysmal atrial fibrillation (previously on apixaban), prediabetes, and MICHELLE, who is now POD#4 s/p 2-v CABG (LCx, RCA 10/07) with post-operative course c/b paroxysmal atrial fibrillation. Patient has had 2.77 g of amiodarone to date, with variations of IV and POdoses. He has tolerated this well so far, though notably his HR did drop to the 50s when he converted back to NSR. Would recommend continuing amiodarone for another day to improve cardiac milieu for successful cardioversion. INR therapeutic on warfarin at 2.5. Consented for cardioversion tomorrow. Plan as below: Plan: - obtain ECG in atrial fibrillation - please make NPO @ MN for planned DCCV tomorrow - continue amiodarone at increased dose (400 mg BID; IV OK as well) - optimize electrolytes as you are (K>4, mag >1) Plan discussed with attending EP physician, Dr. Hough. Cande Laura MD Cardiovascular Disease Fellow, PGY-4 [facility] # [id number] Associated attestation - [place] Hough MD - 10/11/2017 7:27 PM EDT Staff addendum: I have seen and evaluated the patient, and reviewed the available medical records. Iagree with the findings, physical examination, and assessment of Dr. Laura as detailed above. In addition to the recommendations for improved success of cardioversion, the patient also voices preference for waiting for possible conversion for an additional day. In the meantime, we will get him on the schedule for tomorrow. If he is still in AF tomorrow, we will proceed with cardioversion. Of course, if he becomes unstable in AF, would proceed directly to cardioversion. [place] oHugh MD 10/11/2017 7:24 PM Plan of Care - Lorri Appiah RN - 10/11/2017 3:50 AM EDT Problem: Patient Care Overview Goal: Plan of Care Review OUTCOME EVALUATION NOTE: OUTCOME SUMMARY: See flowsheet for VS and I/O. Pt ambulated around unit. Pt converted to Afib MD Sánchez notified. See tele report. Call ahn within reach. Will continue to monitor. INDIVIDUALIZED FALL PREVENTION INTERVENTIONS: Patient-specific fall risk factors per assessment: [current deficits]: Tele, IV Assistance [level of assistance required for transfers and ambulation]: SBA Supervision [direct monitoring required during toileting and ADLs]: No, can summon help as needed Surveillance [continuous indirect monitoring]: Yes, tele Patient-specific fall prevention interventions for sensory deficits provided, if applicable: [X] N/A CPG GOAL OUTCOME EVALUATION: Ongoing assessment Goal: Fall Prevention-Safe Patient Handling 10/10/172034 Ramires Fall Risk History of Falling 0 Secondary Diagnosis 15 Ambulatory Aids 0 Intravenous Therapy/Heparin/Saline Lock 20 Gait/Transferring 10 Mental Status 0 Score 45 OTHER Ramires Fall Risk High Goal: Infection Control 10/10/172034 Safety Interventions Isolation Precautions standard precautions maintained Infection Prevention environmental surveillance performed;equipment surfaces disinfected;personal protective equipment utilized;rest/sleep promoted;single patient room provided Coping Strategies Supportive Measures active listening utilized;verbalization of feelings encouraged Plan of Care - Celina Holm RN - 10/10/2017 5:12 PM EDT Problem: Skin Integrity Impairment, Risk/Actual (Adult) Goal: Identify Related Risk Factors and Signs and Symptoms Related risk factors and signs and symptoms are identified upon initiation of Human Response Clinical Practice Guideline (CPG) Outcome: Ongoing (Interventions Implemented as Appropriate) 10/10/17 1520 Skin Integrity Impairment, Risk/Actual Skin Integrity Impairment, Risk/Actual: Related Risk Factors edema;surgery/procedure;immobility;fluid/nutrition status;tissue perfusion impaired Signs and Symptoms (Skin Integrity Impairment) edema Goal: Skin Integrity/Wound Healing Patient will demonstrate the desired outcomes by discharge/transition of care. Outcome: Ongoing (Interventions Implemented as Appropriate) 10/09/17 1751 Skin Integrity Impairment, Risk/Actual (Adult) Skin Integrity/Wound Healing making progress toward outcome Problem: Patient Care Overview Goal: Plan of Care Review Outcome: Ongoing (Interventions Implemented as Appropriate) 10/09/17 0650 10/10/17 075 Coping/Psychosocial Plan Of Care Reviewed With -- patient Plan of Care Review Progress improving -- OUTCOME EVALUATION NOTE: OUTCOME SUMMARY: Cristian is A&Ox4, reports GREEN[place]G and SOB. Denies CP. Mid Incision open to air, clean dry, intact and well approximated. Left knee clean dry and no drainage. Pain is controlled with scheduled tylenol and PRN oxycodone. Lasix PO given. Potassium replaced. On 2L NC. Tele Junctional HR 50s-80s PLAN MOVING FORWARD: BM, Ambulation, Pain control, wean off O2 INDIVIDUALIZED FALL PREVENTION INTERVENTIONS: Patient-specific fall risk factors per assessment: [current deficits]: Generalized weakness Assistance [level of assistance required for transfers and ambulation]: 1 assist Supervision [direct monitoring required during toileting and ADLs]: Arms reach Surveillance [continuous indirect monitoring]: Tele, Purposeful rounding Patient-specific fall prevention interventions for sensory deficits provided, if applicable: [X] Yes CPG GOAL OUTCOME EVALUATION: Ongoing Goal: Fall Prevention-Safe Patient Handling Outcome: Ongoing (Interventions Implemented as Appropriate) 10/10/17 0752 10/10/17 0900 10/10/17 1520 Positioning Body Position up in chair -- -- Daily Care Interventions Self-Care Promotion -- -- independence encouraged Ramires Fall Risk History of Falling 0 -- -- Secondary Diagnosis 15 -- -- Ambulatory Aids 0 -- -- Intravenous Therapy/Heparin/Saline Lock 20 -- -- Gait/Transferring 10 -- -- Mental Status 0 -- -- Score 45 -- -- OTHER Ramires Fall Risk High -- -- Restraint Interventions Safety Promotion/Fall Prevention activity supervised;safety round/check completed;nonskid shoes/slippers when out of bed;fall prevention program maintained -- -- Activity Activity Type -- activity adjusted per tolerance -- Activity Assistance Provided -- assistance, 1 person -- Assistive Device Utilized -- oxygen -- Goal: Infection Control Outcome: Ongoing (Interventions Implemented as Appropriate) 10/10/17 0752 Safety Interventions Isolation Precautions standard precautions maintained Infection Prevention rest/sleep promoted Coping Strategies Supportive Measures active listening utilized;verbalization of feelings encouraged Problem: Cardiac Surgery (Adult) Goal: Signs and Symptoms of Listed Potential Problems Will be Absent, Minimized or Managed (Cardiac Surgery) Signs and symptoms of listed potential problems will be absent, minimized or managed by discharge/transition of care (reference Cardiac Surgery (Adult) CPG). Outcome: Ongoing (Interventions Implemented as Appropriate) 10/09/171999 Cardiac Surgery Problems Assessed (Cardiac Surgery) all Problems Present (Cardiac Surgery) pain;dysrhythmia/arrhythmia Plan of Care - Shalom Marcano RN - 10/09/2017 5:51 PM EDT Problem: Patient Care Overview Goal: Plan of Care Review Outcome: Ongoing (Interventions Implemented as Appropriate) 10/09/17 0650 10/09/17 1400 Coping/Psychosocial Plan Of Care Reviewed With -- patient;family Plan of Care Review Progress improving -- OUTCOME EVALUATION NOTE: OUTCOME SUMMARY: Pt had a good day. No complaints of CP or SOB. Pt was given 5 mg of oxycodone for MSI pain. Pt has pichardo in place, amiodarone gtt 1 mg/min, NC 1L, Afib, HR 85-120, Will continue to monitor PLAN MOVING FORWARD: Chest XR in the morning, possible cardioversion tomorrow if pt does not convertto SR INDIVIDUALIZED FALL PREVENTION INTERVENTIONS: Patient-specific fall risk factors per assessment: [current deficits]: Unfamiliar environment, telemetry, general weakness Assistance [level of assistance required for transfers and ambulation]: 1 assist Supervision [direct monitoring required during toileting and ADLs]: Intermittent, able to call for assistance Surveillance [continuous indirect monitoring]: Purposeful hourly rounding, call ahn in reach, room kept free of obstacles Patient-specific fall prevention interventions for sensory deficits provided, if applicable: N/A CPG GOAL OUTCOME EVALUATION: Ongoing assessment Goal: Fall Prevention-Safe Patient Handling Outcome: Ongoing (Interventions Implemented as Appropriate) 10/09/17 1400 10/09/17 1600 Positioning Body Position up in chair -- Ramires Fall Risk History of Falling 0 -- Secondary Diagnosis 15 -- Ambulatory Aids 0 -- Intravenous Therapy/Heparin/Saline Lock 20 -- Gait/Transferring 10 -- Mental Status 0 -- Score 45 -- OTHER Ramires Fall Risk High -- Restraint Interventions Safety Promotion/Fall Prevention -- safety round/check completed Activity Activity Type activity adjusted per tolerance -- Activity Assistance Provided assistance, 1 person -- Assistive Device Utilized oxygen -- Goal: Infection Control Outcome: Ongoing (Interventions Implemented as Appropriate) 10/09/17 1400 Safety Interventions Isolation Precautions standard precautions maintained Infection Prevention environmental surveillance performed Coping Strategies Supportive Measures active listening utilized Goal: Discharge Needs Assessment Outcome: Ongoing (Interventions Implemented as Appropriate) 10/09/17 1747 Discharge Needs Assessment Concerns To Be Addressed no discharge needs identified Readmission Within The Last 30 Days no previous admission in last 30 days Equipment Needed After Discharge none Discharge Disposition still a patient Current Health Anticipated Changes Related to Illness none Activity/Self Care Review of Systems Equipment Currently Used at Home none Living Environment Transportation Available family or friend will provide Goal: Interdisciplinary Rounds/Family Conf Outcome: Ongoing (Interventions Implemented as Appropriate) 10/09/17 1747 Interdisciplinary Rounds/Family Conf Participants nursing;patient Problem: Cardiac Surgery (Adult) Goal: Signs and Symptoms of Listed Potential Problems Will be Absent, Minimized or Managed (Cardiac Surgery) Signs and symptoms of listed potential problems will be absent, minimized or managed by discharge/transition of care (reference Cardiac Surgery (Adult) CPG). Outcome: Ongoing (Interventions Implemented as Appropriate) 10/09/17 1400 Cardiac Surgery Problems Assessed (Cardiac Surgery) all Problems Present (Cardiac Surgery) pain;dysrhythmia/arrhythmia Plan of Care - Kelly Norris RN - 10/09/2017 6:55 AM EDT Problem: Patient Care Overview Goal: Plan of Care Review Outcome: Ongoing (Interventions Implemented as Appropriate) 10/09/17 0650 Coping/Psychosocial Plan Of Care Reviewed With patient Plan of Care Review Progress improving OUTCOME EVALUATION NOTE: OUTCOME SUMMARY: Went into AF with RVR. Amio bolus x 2, Amio gtt at 1mg/min. Magnesium sulfate infusing. BP acceptable in AF, pt states he feels tired when he's in AF. PLAN MOVING FORWARD: Pulmonary toilet, OOB when rhythm is stable, ambulate as prudent. INDIVIDUALIZED FALL PREVENTION INTERVENTIONS: Assistance [level of assistance required for transfers and ambulation]: Assist x 1 Patient-specific fall prevention interventions for sensory deficits provided, if applicable: [X] No CPG GOAL OUTCOME EVALUATION: Problem: Cardiac Surgery (Adult) Goal: Signs and Symptoms of Listed Potential Problems Will be Absent, Minimized or Managed (Cardiac Surgery) Signs and symptoms of listed potential problems will be absent, minimized or managed by discharge/transition of care (reference Cardiac Surgery (Adult) CPG). Outcome: Ongoing (Interventions Implemented as Appropriate) 10/09/17 0650 Cardiac Surgery Problems Assessed (Cardiac Surgery) all Problems Present (Cardiac Surgery) pain;dysrhythmia/arrhythmia;fluid imbalance Plan of Care - Kelly Norris RN - 10/08/2017 1:18 AM EDT Problem: Patient Care Overview Goal: Plan of Care Review Outcome: Ongoing (Interventions Implemented as Appropriate) OUTCOME EVALUATION NOTE: OUTCOME SUMMARY: Attempting to wean vasoactive gtts. Pt currently sedated, opens eyes with suctioning/turning, nothing to command at present. PLAN MOVING FORWARD: Wake and do SBT in AM, move toward extubation. Wean vasoactive gtts. INDIVIDUALIZED FALL PREVENTION INTERVENTIONS: Patient-specific fall risk factors per assessment: [current deficits]: Assistance [level of assistance required for transfers and ambulation]: full assist Supervision [direct monitoring required during toileting and ADLs]: full assist Surveillance [continuous indirect monitoring]: Patient-specific fall prevention interventions for sensory deficits provided, if applicable: [X] N/A CPG GOAL OUTCOME EVALUATION: Goal: Fall Prevention-Safe Patient Handling Outcome: Ongoing (Interventions Implemented as Appropriate) 10/08/17 0000 10/08/17 0111 Positioning Body Position -- legs elevated;side-lying, right;upper extremity elevated, left;upper extremity elevated, right;greater than 2-person assist Restraint Interventions Safety Promotion/Fall Prevention safety round/check completed -- Activity Activity Type bedrest -- Activity Assistance Provided assistance, 3 or more people -- Goal: Infection Control Outcome: Ongoing (Interventions Implemented as Appropriate) 10/08/17 0000 Safety Interventions Isolation Precautions standard precautions maintained Infection Prevention environmental surveillance performed Problem: Cardiac Surgery (Adult) Goal: Signs and Symptoms of Listed Potential Problems Will be Absent, Minimized or Managed (Cardiac Surgery) Signs and symptoms of listed potential problems will be absent, minimized or managed by discharge/transition of care (reference Cardiac Surgery (Adult) CPG). Outcome: Ongoing (Interventions Implemented as Appropriate) 10/08/17 0111 Cardiac Surgery Problems Assessed (Cardiac Surgery) all Problems Present (Cardiac Surgery) pain;dysrhythmia/arrhythmia;electrolyte imbalance;fluid imbalance;hemodynamic instability;hypoxia/hypoxemia Brief Op Note - Juan Alberto Dunlap MD - 10/07/2017 2:14 PM EDT Brief Operative Note Patient Name: Cristian Miner : [id number] MR#: [id number] Case Date: 10/07/2017 Surgeon: Surgeon(s) and Role: * Juan Alberto Dunlap MD - Primary * Cal Watson PA - Physician Stretching Machine Tender Frame * Emily Avina PA - Physician Stretching Machine Tender Frame Preoperative diagnosis: CAD, MR Postoperative diagnosis: CAD, MR, same, severe prebyapss MR (restricted motion, annular dilitation).and pulmonary hypertension. Post bypass JAYLON, No residual MR, EF 50%, significant decrease in PA pressures. Procedure(s) (LRB): ENDOSCOPIC HARVEST VEIN(S) FOR CABG (WRVU 0.31) (N/A) @VALVULOPLASTY, MITRAL VALVE, W\CPB; W\PROSTHETIC RING (WRVU 43.28) (N/A) @CABG, VEIN ONLY;TWO CORONARY VENOUS GRAFTS (WRVU 38.45) (N/A) Anesthesia: General/ Harjinder Findings: severe prebyapss MR (restricted motion, annular dilitation). and pulmonary hypertension. Post bypass JAYLON, No residual MR, EF 50%, significant decrease in PA pressures. Drains: Mediastinal Specimens removed during surgery: none Disposition: taken directly to the ICU, intubated and in stable condition. Condition: doing well without problems Attestation: Case Date: 10/07/2017 I was present and I participated during the entire procedure (does not need to include opening and closing). (Please see the Surgical Encounter Summary for any Implant and Specimen details pertinent to this patient.) documented in this encounter Plan of Treatment Upcoming Encounters Date Type Specialty Care Team Description 11/11/2021 Office Visit Nephrology Jonn Zuniga MD [facility] NEPH[facility]OLOGY DEPT [place], [place] [address] (Wo rk) Scheduled Orders Name Type Priority Associated Diagnoses Order S chedule EKG 12 Lead ECG Routine S/P MVR (mitral valve repair) Ordered: 10/18/2017 S/P CABG x 2 Scheduled Referrals Name Type Priority Associated Diagnoses Order S chedule Referral to Outpatient Referral Routine S/P CABG x 2 Ordered: Cardiac Rehab 10/18/2017 documented as of this encounter Procedures Procedure Name Priority Date/Time Associated Diagnosis Comme nts LAB SCAN 10/19/2017 12:00 Results for this AM EDT procedure are i n the results section. IMPLANTABLE DEVICES 10/19/2017 12:00 Resu lts for this SCAN AM EDT procedure are i n the results section. IRRIGATION EQUIPMENT MECHANIC SCAN 10/19/2017 12:00 Res ults for this AM EDT procedure are i n the results section. IRRIGATION EQUIPMENT MECHANIC SCAN 10/19/2017 12:00 Res ults for this AM EDT procedure are i n the results section. PROTHROMBIN TIME Routine 10/18/2017 3:48 AM Resul ts for this EDT procedure are i n the results section. POTASSIUM Routine 10/18/2017 3:48 AM Results f or this EDT procedure are i n the results section. PROTHROMBIN TIME Routine 10/17/2017 4:51 AM Resul ts for this EDT procedure are i n the results section. POTASSIUM Routine 10/17/2017 4:51 AM Results f or this EDT procedure are i n the results section. PROTHROMBIN TIME Routine 10/16/2017 4:51 AM Resul ts for this EDT procedure are i n the results section. POTASSIUM Routine 10/16/2017 4:51 AM Results f or this EDT procedure are i n the results section. PROTHROMBIN TIME Routine 10/15/2017 3:17 AM Resul ts for this EDT procedure are i n the results section. POTASSIUM Routine 10/15/2017 3:17 AM Results f or this EDT procedure are i n the results section. PROTHROMBIN TIME Routine 10/14/2017 12:05 Results for this PM EDT procedure are i n the results section. POTASSIUM Routine 10/14/2017 12:05 Results for this PM EDT procedure are i n the results section. PROTHROMBIN TIME Routine 10/13/2017 8:39 AM Resul ts for this EDT procedure are i n the results section. POTASSIUM Routine 10/13/2017 8:39 AM Results f or this EDT procedure are i n the results section. EKG 12-LEAD STAT 10/12/2017 11:42 Paroxysmal atrial Result s for this AM EDT fibrillation procedure are i n the results section. CARDIOVERSION-OR Routine 10/12/2017 11:25 Results for this AM EDT procedure are i n the results section. CARDIOVERSION-ELECTIV 10/12/2017 11:07 AFIB E (WRVU 2.25) AM EDT PROTHROMBIN TIME Routine 10/12/2017 5:18 AM Resul ts for this EDT procedure are i n the results section. POTASSIUM Routine 10/12/2017 5:18 AM Results f or this EDT procedure are i n the results section. EKG 12-LEAD Routine 10/11/2017 5:08 PM Paroxysmal atrial Resu lts for this EDT fibrillation procedure are i n the results section. HEPARIN STAT 10/11/2017 11:38 Results for this (UNFRACTIONATED) AM EDT procedure a re in LEVEL the results section. HEMOGRAM Routine 10/11/2017 11:38 Results for this AM EDT procedure are i n the results section. DIFFERENTIAL, Routine 10/11/2017 11:38 Results fo r this AUTOMATED AM EDT procedure are i n the results section. CBC (WITH DIFF) Routine 10/11/2017 11:38 AM EDT PROTHROMBIN TIME Routine 10/11/2017 6:14 AM Resul ts for this EDT procedure are i n the results section. POTASSIUM Routine 10/11/2017 6:14 AM Results f or this EDT procedure are i n the results section. HEMOGRAM Routine 10/10/2017 10:53 Results for this AM EDT procedure are i n the results section. DIFFERENTIAL, Routine 10/10/2017 10:53 Results fo r this AUTOMATED AM EDT procedure are i n the results section. PROTHROMBIN TIME Routine 10/10/2017 10:53 Results for this AM EDT procedure are i n the results section. CBC (WITH DIFF) Routine 10/10/2017 10:53 AM EDT BASIC METABOLIC PANEL Routine 10/10/2017 10:53 Re sults for this (NON-FASTING) AM EDT procedure are in the results section. XR CHEST PA AND Routine 10/10/2017 10:34 Results for this LATERAL AM EDT procedure are i n the results section. POCT GLUCOSE Routine 10/09/2017 8:27 AM Results f or this EDT procedure are i n the results section. POCT GLUCOSE Routine 10/09/2017 3:54 AM Results f or this EDT procedure are i n the results section. PROTHROMBIN TIME Routine 10/09/2017 3:50 AM Resul ts for this EDT procedure are i n the results section. POTASSIUM Routine 10/09/2017 3:50 AM Results f or this EDT procedure are i n the results section. POCT GLUCOSE Routine 10/08/2017 11:26 Results for this PM EDT procedure are i n the results section. POCT GLUCOSE Routine 10/08/2017 7:54 PM Results f or this EDT procedure are i n the results section. POTASSIUM Routine 10/08/2017 7:50 PM Results f or this EDT procedure are i n the results section. POCT GLUCOSE Routine 10/08/2017 6:38 PM Results f or this EDT procedure are i n the results section. POCT GLUCOSE Routine 10/08/2017 2:56 PM Results f or this EDT procedure are i n the results section. PROTHROMBIN TIME Routine 10/08/2017 11:18 Results for this AM EDT procedure are i n the results section. POTASSIUM Routine 10/08/2017 11:18 Results for this AM EDT procedure are i n the results section. POCT GLUCOSE Routine 10/08/2017 11:04 Results for this AM EDT procedure are i n the results section. POCT GLUCOSE Routine 10/08/2017 10:34 Results for this AM EDT procedure are i n the results section. URINALYSIS Routine 10/08/2017 10:12 Results for this MICROSCOPIC EXAM AM EDT procedure a re in the results section. URINALYSIS WITH Routine 10/08/2017 10:12 Results for this REFLEX CULTURE AM EDT procedure are in the results section. POCT GLUCOSE Routine 10/08/2017 9:15 AM Results f or this EDT procedure are i n the results section. POCT GLUCOSE Routine 10/08/2017 7:56 AM Results f or this EDT procedure are i n the results section. POCT GLUCOSE Routine 10/08/2017 7:04 AM Results f or this EDT procedure are i n the results section. BLOOD GAS 2 ARTERIAL Routine 10/08/2017 6:25 AM R esults for this EDT procedure are i n the results section. POCT GLUCOSE Routine 10/08/2017 6:04 AM Results f or this EDT procedure are i n the results section. POCT GLUCOSE Routine 10/08/2017 5:03 AM Results f or this EDT procedure are i n the results section. POCT GLUCOSE Routine 10/08/2017 3:53 AM Results f or this EDT procedure are i n the results section. SCAN, PERIPHERAL Routine 10/08/2017 3:50 AM Resul ts for this BLOOD EDT procedure are i n the results section. HEMOGRAM Routine 10/08/2017 3:50 AM Results f or this EDT procedure are i n the results section. DIFFERENTIAL, Routine 10/08/2017 3:50 AM Results for this AUTOMATED EDT procedure are i n the results section. CARDIAC ENZYMES Routine 10/08/2017 3:50 AM Result s for this ([facility]) EDT procedure are i n the results section. CREATININE Routine 10/08/2017 3:50 AM Results f or this EDT procedure are i n the results section. CBC (WITH DIFF) Routine 10/08/2017 3:50 AM EDT BUN Routine 10/08/2017 3:50 AM Results f or this EDT procedure are i n the results section. POTASSIUM Routine 10/08/2017 3:50 AM Results f or this EDT procedure are i n the results section. GLUCOSE, FASTING Routine 10/08/2017 3:50 AM Resul ts for this EDT procedure are i n the results section. ELECTROLYTES PANEL Routine 10/08/2017 3:50 AM Res ults for this EDT procedure are i n the results section. POCT GLUCOSE Routine 10/08/2017 3:08 AM Results f or this EDT procedure are i n the results section. POCT GLUCOSE Routine 10/08/2017 1:59 AM Results f or this EDT procedure are i n the results section. POCT GLUCOSE Routine 10/08/2017 1:06 AM Results f or this EDT procedure are i n the results section. POCT GLUCOSE Routine 10/07/2017 11:52 Results for this PM EDT procedure are i n the results section. POTASSIUM Routine 10/07/2017 11:50 Results for this PM EDT procedure are i n the results section. POCT GLUCOSE Routine 10/07/2017 11:01 Results for this PM EDT procedure are i n the results section. POCT GLUCOSE Routine 10/07/2017 9:59 PM Results f or this EDT procedure are i n the results section. POCT GLUCOSE Routine 10/07/2017 9:00 PM Results f or this EDT procedure are i n the results section. POCT GLUCOSE Routine 10/07/2017 7:58 PM Results f or this EDT procedure are i n the results section. POCT GLUCOSE Routine 10/07/2017 6:28 PM Results f or this EDT procedure are i n the results section. HEMOGLOBIN Routine 10/07/2017 6:20 PM Results f or this EDT procedure are i n the results section. POTASSIUM Routine 10/07/2017 6:20 PM Results f or this EDT procedure are i n the results section. POCT GLUCOSE Routine 10/07/2017 5:14 PM Results f or this EDT procedure are i n the results section. BLOOD GAS 2 ARTERIAL Routine 10/07/2017 3:52 PM R esults for this EDT procedure are i n the results section. XR CHEST ONE VIEW STAT 10/07/2017 3:33 PM Resu lts for this EDT procedure are i n the results section. EKG 12-LEAD STAT 10/07/2017 3:29 PM S/P MVR (mitral Result s for this EDT valve repair) procedure are in S/P CABG x 2 the results section. BLOOD GAS 2 ARTERIAL Routine 10/07/2017 3:04 PM R esults for this EDT procedure are i n the results section. BLOOD GAS 2 ARTERIAL Routine 10/07/2017 1:27 PM R esults for this EDT procedure are i n the results section. HEMOGRAM STAT 10/07/2017 1:27 PM Results f or this EDT procedure are i n the results section. APTT STAT 10/07/2017 1:27 PM Results f or this EDT procedure are i n the results section. THROMBIN TIME STAT 10/07/2017 1:27 PM Results for this EDT procedure are i n the results section. PROTHROMBIN TIME STAT 10/07/2017 1:27 PM Resul ts for this EDT procedure are i n the results section. FIBRINOGEN STAT 10/07/2017 1:27 PM Results f or this EDT procedure are i n the results section. BLOOD GAS 2 ARTERIAL Routine 10/07/2017 12:50 Res ults for this PM EDT procedure are i n the results section. HEMOGLOBIN AND STAT 10/07/2017 12:39 Results f or this HEMATOCRIT, BLOOD PM EDT procedure are in the results section. FIBRINOGEN STAT 10/07/2017 12:39 Results for this PM EDT procedure are i n the results section. PLATELET COUNT STAT 10/07/2017 12:39 Results f or this PM EDT procedure are i n the results section. BLOOD GAS 2 ARTERIAL Routine 10/07/2017 12:16 Res ults for this PM EDT procedure are i n the results section. BLOOD GAS 2 ARTERIAL Routine 10/07/2017 11:43 Res ults for this AM EDT procedure are i n the results section. BLOOD GAS 2 VENOUS Routine 10/07/2017 11:12 Resul ts for this AM EDT procedure are i n the results section. BLOOD GAS 2 ARTERIAL Routine 10/07/2017 11:10 Res ults for this AM EDT procedure are i n the results section. BLOOD GAS 2 ARTERIAL Routine 10/07/2017 10:39 Res ults for this AM EDT procedure are i n the results section. BLOOD GAS 2 ARTERIAL Routine 10/07/2017 10:27 Res ults for this AM EDT procedure are i n the results section. PREPARE COAG FACTORS STAT 10/07/2017 10:20 Res ults for this (NON-HEMOPHILIA) AM EDT procedure a re in the results section. BLOOD GAS 2 ARTERIAL Routine 10/07/2017 8:56 AM R esults for this EDT procedure are i n the results section. @CABG, VEIN ONLY;TWO 10/07/2017 8:30 AM CAD, MR CORONARY VENOUS EDT GRAFTS (WRVU 38.45) @VALVULOPLASTY, 10/07/2017 8:30 AM CAD, MR MITRAL VALVE, W\CPB; EDT W\PROSTHETIC RING (WRVU 43.28) ENDOSCOPIC HARVEST 10/07/2017 8:30 AM CAD, MR VEIN(S) FOR CABG EDT (WRVU 0.31) POCT GLUCOSE Routine 10/07/2017 7:14 AM Results f or this EDT procedure are i n the results section. PREPARE RBC STAT 10/07/2017 6:30 AM Results f or this EDT procedure [...] R ? (Age): 1955(61y) Med Rec#: ? [id number] ?Sex: ?M ? Site Loc: ? [facility] ?Ht / Wt: ??172(cm)/126(kg) Pt. Loc: ?Echo Lab ?BSA: ?2.34 Study Date: ?? 11/17/2017 ?Pt. Type: Outpatient Tape: ? Referring: HAILEE AGUILAR Reading: Lalito Gallegos ([id number]) Rf Test Engineer: Palak Martin Senior Water/Wastewater Engineer: Ekaterina Patel Diagnosis: *Other specified postprocedural states [...] E-wave Vmax ?1.7 ?m/sec ? MV deceleration [id number] ?msec ? MV A-wave Vmax ?0.8 ?m/sec [...] ? Mid-Inferior ?Akinetic ? Mid-Inferoseptal ?Normal ? [place]-Septal ? Normal ? [place]-Anterior ? Normal ? [place]-Lateral ?Normal ? [place]-Inferior ? Normal ? [place]-Tip ?Normal ? This report has been electronically sign ed by: _ Lalito Gallegos MD ? 11/17/2017 1 4:26:29 Images reviewed and interpretation [facility] Cardiac Ultrasound Laboratory Procedure Note Lalito Gallegos MD - 11/17/2017Format ting of this note might be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 HEMATOLOGY ORDERABLES Performing Organization Address City/State/ZIP Code Phon e Number [place] [phone] (ABNORMAL) Hemogram (10/10/2017 10:53 AM EDT) Analysis Performed At Patho logist Time Signature WBC 15.9 (H) 4.0 - 9.5 [facility] x10(3)/[facility] LABORATORY RBC 4.21 (L) 4.58 - [facility] 5.54 [facility] x10(6)/[facility] LABORATORY Hemoglobin 12.3 (L) 13.7 [facility] 16.5 gm/dL [facility] Hematocrit 36.6 (L) 40.5 [facility] 48.5 % [facility] MCV 86.9 82.[address] [facility] 93.1 [facility] LABORATORY MCH 29.2 27.5 - [facility] [facility] 32.1 pg [facility] MCHC 33.6 32.[address] [facility] 35.7 gm/dL [facility] Platelets 106 (L) 145 - 357 [facility] x10(3)/[facility] LABORATORY RDWSD 42.[address] 36[address] [facility] 45.0 [facility] ER LABORATORY RDWCV 13.4 11.4 - [facility] 13.8 % [facility] MPV 12.4 7.6 - 12.9 [facility] LABORATORY nRBC % Auto 0.0 % [facility] LABOR[facility]ORY nRBC Abs Auto 0.000 0.000 - [facility] 0.000 [facility] x10(3)/[facility] LABORATORY Specimen Anatomical Collection Method Collection Time Receive d Time (Source) Location / / Volume Laterality Blood specimen 10/10/2017 10:53 8 (specimen) AM EDT 11:06 AM EDT Resulting Agency Comment Spec In Lab Td [facility] HEMATOLOGY ORDERABLES Performing Organization Address City/State/ZIP [place] [address] (ABNORMAL) Prothrombin Time (10/10/2017 10:53 AM EDT) P athologist Signature PT 20.1 (H) 9.4 - 12.5 [facility] LABORATORY INR 1.8 [facility] Comment: An INR <2.0 indicates adequate procoagul ant activity for hemostasis in most patients without underlying bleeding dis orders, though the INR may not adequately reflect hemostatic capacity i n patients with liver disease and synthetic impairment. The recommended ta rget INR range for therapeutic anticoagulation is 2.0 ? 3.0 for most applications, though lower and higher ranges may be appropriate depending on c linical circumstances. Specimen Anatomical Collection Method Collection Time Receive d Time (Source) Location / / Volume Laterality Blood specimen 10/10/2017 10:53 8 (specimen) AM EDT 11:06 AM EDT Resulting Agency Comment Spec In Lab Juan Alberto Dunlap MD HEMATOLOGY ORDERABLES Performing Organization Address City/State/ZIP [place] [address] (ABNORMAL) Basic Metabolic Panel (non-fasting) (10/10/2017 10:53 AM EDT) P athologist Signature Glucose Lvl 136 65 - [address] [facility] mg/dL [facility] Comment: Diabetes: >=200 mg/dL plus symp toms BUN 21 (H) 10 - 20 mg/dL [facility] Creatinine 0.68 (L) 0.80 - 1.50 mg/dL [facility] LABORATORY Sodium 132 (L) 135 - 145 mmol/L [facility] Potassium 3.9 3.5 - 5.0 mmol/L [facility] Comment: Please note: ??Patients with WBC >100,00 0 may have falsely elevated Potassium levels. ??For accurate Potassium quantif ication in these patients send serum separator tube (gold top) for subsequent determinations. ??Contact the Clinical Chemistry Laboratory if there are any qu estions. Chloride 96 (L) 98 - 107 mmol/L [facility] CO2 25 22 - 31 mmol/L [facility] Anion Gap 11 5 - 15 mmol/L [facility] Calcium 8.2 (L) 8.5 - 10.5 mg/dL [facility] Estimated GFR 105 >=60 mL/min/1.73 m?? [facility] Comment: The eGFR was calculated using the CKD-EP I equation. As with all creatinine based estimates of kidney function, eGFR values calculated with the CKD-EPI equation are not accurate in patients wi th acute kidney failure, extremes of body mass or the acutely ill. [email or web address]kf eGFR 121 >=60 mL/min/1.73 m?? [facility] Comment: The eGFR was calculated using the CKD-EP I equation. As with all creatinine based estimates of kidney function, eGFR values calculated with the CKD-EPI equation are not accurate in patients wi th acute kidney failure, extremes of body mass or the acutely ill. [email or web address]/[email or web address]kf Specimen Anatomical Collection Method Collection Time Receive d Time (Source) Location / / Volume Laterality Blood specimen 10/10/2017 10:53 8 (specimen) AM EDT 11:06 AM EDT Resulting Agency Comment Spec In Lab Juan Alberto Dunlap MD CHEMISTRY ORDERABLES Performing Organization Address City/State/ZIP [place] [address] XR Chest PA & Lateral (Generic) (10/10/2017 10:34 AM EDT) Anatomical Region Laterality Modality Chest N/A Digital Radiography Specimen (Source) Anatomical Location Collection Method / Collectio n Time Received Time / Laterality Volume Impressions 10/10/2017 10:49 AM EDT 1. ??Removal of endotracheal tube, PA catheter, mediastinal drains. 2. ??Improved aeration of the lungs with clearing of pulmonary edema. 3. ??Increasing bilateral pleural effusi ons, right greater than left. I have personally reviewed the image(s) and the residents interpretation and agree with the findings, Jared nicole 10/10/2017 10:49 AM Narrative 10/10/2017 10:49 AM EDT EXAMINATION: XR CHEST PA AND LATERAL (GENERIC) CLINICAL HISTORY: s/p mvr TECHNIQUE: PA and lateral chest COMPARISON: 10/07/2017 AP chest FINDINGS: Endotracheal tube, PA catheter and media stinal drains have been removed. There is improved aeration of the lungs with c learing of pulmonary edema. However, there are increased bilateral pleural ef fusions, right greater than left. Bibasilar atelectasis. No pneumothorax. Cardiomediastinal silhouette, maryellen, and pulmonary vasculature ??are unchanged. I ntact median sternotomy wires and mitral valve replacement in stable positions. G aseous distention of the colon in the left upper quadrant noted. Procedure Note Jared Martins MD - 10/10/2017Formatt ing of this note might be different from the original. EXAMINATION: XR CHEST PA AND LATERAL (GE NERIC) CLINICAL HISTORY: s/p mvr TECHNIQUE: PA and lateral chest COMPARISON: 10/07/2017 AP chest FINDINGS: Endotracheal tube, PA catheter and media stinal drains have been removed. There is improved aeration of the lungs with c learing of pulmonary edema. However, there are increased bilateral pleural ef fusions, right greater than left. Bibasilar atelectasis. No pneumothorax. Cardiomediastinal silhouette, maryellen, and pulmonary vasculature are unchanged. Int act median sternotomy wires and mitral valve replacement in stable positions. G aseous distention of the colon in the left upper quadrant noted. IMPRESSION 1. Removal of endotracheal tube, PA cath eter, mediastinal drains. 2. Improved aeration of the lungs with c learing of pulmonary edema. 3. Increasing bilateral pleural effusion s, right greater than left. I have personally reviewed the image(s) and the residents interpretation and agree with the findings, Jared nicole 10/10/2017 10:49 AM Juan Alberto Dunlap MD IMG DX ORDERABLES POCT Glucose (10/09/2017 8:27 AM EDT) athologist Signature POC Glucose 125 65 - [facility] mg/dL [facility] Comment: Supplemental ranges: <140 mg/dL before meals <180 mg/dL all other times of the day Specimen Anatomical Collection Method Collection Time Receive d Time (Source) Location / / Volume Laterality Blood specimen 10/09/2017 8:27 AM 018 8:27 (specimen) EDT AM EDT Juan Alberto Dunlap MD POINT OF CARE TEST ORDERABLE S Performing Organization Address City/State/[place] [address] POCT Glucose (10/09/2017 3:54 AM EDT) athologist Signature POC Glucose 127 65 - [facility] mg/dL [facility] Comment: Supplemental ranges: <140 mg/dL before meals <180 mg/dL all other times of the day Specimen Anatomical Collection Method Collection Time Receive d Time (Source) Location / / Volume Laterality Blood specimen 10/09/2017 3:54 AM 018 3:54 (specimen) EDT AM EDT Juan Alberto Dunlap MD POINT OF CARE TEST ORDERABLE S Performing Organization Address City/State/[place] [address] Potassium (10/09/2017 3:50 AM EDT) athologist Signature Potassium 4.2 3.5 - 5.0 [facility] mmol/L [facility] Comment: Please note: ??Patients with WBC >100,00 0 may have falsely elevated Potassium levels. ??For accurate Potassium quantif ication in these patients send serum separator tube (gold top) for subsequent determinations. ??Contact the Clinical Chemistry Laboratory if there are any qu estions. Specimen Anatomical Collection Method Collection Time Receive d Time (Source) Location / / Volume Laterality Blood specimen 10/09/2017 3:50 AM 018 4:09 (specimen) EDT AM EDT Resulting Agency Comment Spec In Lab Juan Alberto Dunlap MD CHEMISTRY ORDERABLES Performing Organization Address City/[facility]/[place] [address] (ABNORMAL) Prothrombin Time (10/09/2017 3:50 AM EDT) P athologist Signature PT 15.7 (H) 9.4 - 12.5 [facility] LABORATORY INR 1.4 [facility] Comment: An INR <2.0 indicates adequate procoagul ant activity for hemostasis in most patients without underlying bleeding dis orders, though the INR may not adequately reflect hemostatic capacity i n patients with liver disease and synthetic impairment. The recommended ta rget INR range for therapeutic anticoagulation is 2.0 ? 3.0 for most applications, though lower and higher ranges may be appropriate depending on c linical circumstances. Specimen Anatomical Collection Method Collection Time Receive d Time (Source) Location / / Volume Laterality Blood specimen 10/09/2017 3:50 AM 018 4:09 (specimen) EDT AM EDT Resulting Agency Comment Spec In Lab Juan Alberto Dunlap MD HEMATOLOGY ORDERABLES Performing Organization Address City/[facility] [place] [address] POCT Glucose (10/08/2017 11:26 PM EDT) P athologist Signature POC Glucose 111 65 - [address] [facility] mg/dL [facility] Comment: Supplemental ranges: <140 mg/dL before meals <180 mg/dL all other times of the day Specimen Anatomical Collection Method Collection Time Receive d Time (Source) Location / / Volume Laterality Blood specimen 10/08/2017 11:26 8 (specimen) PM EDT 11:26 PM EDT Juan Alberto Dunlap MD POINT OF CARE TEST ORDERABLE S Performing Organization Address City/State/ZIP Code Phon e Number [place] [phone] POCT Glucose (10/08/2017 7:54 PM EDT) athologist Signature POC Glucose 130 65 - [address] [facility] mg/dL [facility] Comment: Supplemental ranges: <140 mg/dL before meals <180 mg/dL all other times of the day Specimen Anatomical Collection Method Collection Time Receive d Time (Source) Location / / Volume Laterality Blood specimen 10/08/2017 7:54 PM 018 7:54 (specimen) EDT PM EDT Juan Alberto Dunlap MD POINT OF CARE TEST ORDERABLE S Performing Organization Address City/[facility]/[place] [address] Potassium (10/08/2017 7:50 PM EDT) athologist Signature Potassium 4.4 3.5 - 5.0 [facility] mmol/L [facility] Comment: Please note: ??Patients with WBC >100,00 0 may have falsely elevated Potassium levels. ??For accurate Potassium quantif ication in these patients send serum separator tube (gold top) for subsequent determinations. ??Contact the Clinical Chemistry Laboratory if there are any qu estions. Specimen Anatomical Collection Method Collection Time Receive d Time (Source) Location / / Volume Laterality Blood specimen 10/08/2017 7:50 PM 018 8:04 (specimen) EDT PM EDT Resulting Agency Comment Spec In Lab Juan Alberto Dunlap MD CHEMISTRY ORDERABLES Performing Organization Address City/State/ZIP Code Phon e Number [place] [phone] POCT Glucose (10/08/2017 6:38 PM EDT) athologist Signature POC Glucose 104 65 - [address] [facility] mg/dL [facility] Comment: Supplemental ranges: <140 mg/dL before meals <180 mg/dL all other times of the day Specimen Anatomical Collection Method Collection Time Receive d Time (Source) Location / / Volume Laterality Blood specimen 10/08/2017 6:38 PM 018 6:38 (specimen) EDT PM EDT Juan Alberto Dunlap MD POINT OF CARE TEST ORDERABLE S Performing Organization Address City/[facility]/[place] [address] POCT Glucose (10/08/2017 2:56 PM EDT) athologist Signature POC Glucose 117 65 - [address] [facility] mg/dL [facility] Comment: Supplemental ranges: <140 mg/dL before meals <180 mg/dL all other times of the day Specimen Anatomical Collection Method Collection Time Receive d Time (Source) Location / / Volume Laterality Blood specimen 10/08/2017 2:56 PM 018 2:56 (specimen) EDT PM EDT Juan Alberto Dunlap MD POINT OF CARE TEST ORDERABLE S Performing Organization Address City/[facility]/[place] [address] (ABNORMAL) Potassium (10/08/2017 11:18 AM EDT) P athologist Signature Potassium 5.3 (H) 3.5 - 5.0 [facility] mmol/L [facility] Comment: Please note: ??Patients with WBC >100,00 0 may have falsely elevated Potassium levels. ??For accurate Potassium quantif ication in these patients send serum separator tube (gold top) for subsequent determinations. ??Contact the Clinical Chemistry Laboratory if there are any qu estions. Specimen Anatomical Collection Method Collection Time Receive d Time (Source) Location / / Volume Laterality Blood specimen 10/08/2017 11:18 8 (specimen) AM EDT 11:18 AM EDT Resulting Agency Comment Spec In Lab Juan Alberto Dunlap MD CHEMISTRY ORDERABLES Performing Organization Address City/[facility]/ZIP Code Phon e Number [address] (ABNORMAL) Prothrombin Time (10/08/2017 11:18 AM EDT) P athologist Signature PT 14.3 (H) 9.4 - 12.5 [facility] LABORATORY INR 1.3 [facility] Comment: An INR <2.0 indicates adequate procoagul ant activity for hemostasis in most patients without underlying bleeding dis orders, though the INR may not adequately reflect hemostatic capacity i n patients with liver disease and synthetic impairment. The recommended ta rget INR range for therapeutic anticoagulation is 2.0 ? 3.0 for most applications, though lower and higher ranges may be appropriate depending on c linical circumstances. Specimen Anatomical Collection Method Collection Time Receive d Time (Source) Location / / Volume Laterality Blood specimen 10/08/2017 11:18 8 (specimen) AM EDT 11:18 AM EDT Resulting Agency Comment Spec In Lab Juan Alberto Dunlap MD HEMATOLOGY ORDERABLES Performing Organization Address City/[facility]/ZIP Code Phon e Number [address] POCT Glucose (10/08/2017 11:04 AM EDT) P athologist Signature POC Glucose 158 65 - 199 [facility] mg/dL [facility] Comment: Supplemental ranges: <140 mg/dL before meals <180 mg/dL all other times of the day Specimen Anatomical Collection Method Collection Time Receive d Time (Source) Location / / Volume Laterality Blood specimen 10/08/2017 11:04 8 (specimen) AM EDT 11:04 AM EDT Juan Alberto Dunlap MD POINT OF CARE TEST ORDERABLE S Performing Organization Address City/State/[place] [address] POCT Glucose (10/08/2017 10:34 AM EDT) P athologist Signature POC Glucose 140 65 - [facility]/dL [facility] Comment: Supplemental ranges: <140 mg/dL before meals <180 mg/dL all other times of the day Specimen Anatomical Collection Method Collection Time Receive d Time (Source) Location / / Volume Laterality Blood specimen 10/08/2017 10:34 8 (specimen) AM EDT 10:34 AM EDT Juan Alberto Dunlap MD POINT OF CARE TEST ORDERABLE S Performing Organization Address City/State/[place] [address] Urinalysis Microscopic Exam (10/08/2017 10:12 AM EDT) P athologist Signature RBC UA <1 0 - 3 /HPF [facility] WBC UA 0 0 - 3 /HPF [facility] Specimen (Source) Anatomical Collection Method Collection Time Re ceived Time Location / / Volume Laterality Urine specimen 10/08/2017 10:12 8 obtained via AM EDT 10:29 AM EDT indwelling urinary catheter (specimen) Resulting Agency Comment Spec In Lab Geoffrey Kulkarni MD URINE ORDERABLES Performing Organization Address City/State/[place] [address] (ABNORMAL) Urinalysis with reflex Culture (10/08/2017 10:12 AM EDT) Patholo gist Method Time Signature Glucose UA Negative Negative [facility] mg/dL [facility] Protein UA 30 (A) Negative [facility] mg/dL [facility] Bilirubin UA Negative Negative [facility] mg/dL [facility] Comment: Clinical correlation required for positi ve Urine Bilirubin results as false positive may occur with some drugs and d rug related products. If a false positive is suspected a serum total bili watt should be considered if clinically indicated. Urobilinogen UA Normal Normal mg/dL [facility] pH UA 5.0 5.0 - 8.0 [facility]ORY Blood UA Negative Negative mg/dL [facility] Ketones UA Negative Negative mg/dL [facility] Nitrite UA Negative Negative [facility] Leukocytes UA Negative Negative [facility] LABORATORY Appearance UA Turbid (A) Clear [facility] Spec [place] UA >1.035 (H) 1.002 - 1.030 [facility] LABOR[facility]ORY Color UA Yellow Yellow [facility]ORY Culture Reflexed No [facility] Specimen (Source) Anatomical Collection Method Collection Time Re ceived Time Location / / Volume Laterality Urine specimen 10/08/2017 10:12 8 obtained via AM EDT 10:29 AM EDT indwelling urinary catheter (specimen) Resulting Agency Comment Spec In Lab Juan Alberto Dunlap MD URINE ORDERABLES Performing Organization Address City/[facility]/ZIP Code Phon e Number [address] POCT Glucose (10/08/2017 9:15 AM EDT) athologist Signature POC Glucose 142 65 - 199 [facility] mg/dL [facility] Comment: Supplemental ranges: <140 mg/dL before meals <180 mg/dL all other times of the day Specimen Anatomical Collection Method Collection Time Receive d Time (Source) Location / / Volume Laterality Blood specimen 10/08/2017 9:15 AM 018 9:15 (specimen) EDT AM EDT Juan Alberto Dunlap MD POINT OF CARE TEST ORDERABLE S Performing Organization Address City/State/ZIP Code Phon e Number [address] POCT Glucose (10/08/2017 7:56 AM EDT) athologist Signature POC Glucose 143 65 - 199 [facility] mg/dL [facility] Comment: Supplemental ranges: <140 mg/dL before meals <180 mg/dL all other times of the day Specimen Anatomical Collection Method Collection Time Receive d Time (Source) Location / / Volume Laterality Blood specimen 10/08/2017 7:56 AM 018 7:56 (specimen) EDT AM EDT Juan Alberto Dunlap MD POINT OF CARE TEST ORDERABLE S Performing Organization Address City/State/ZIP Code Phon e Number [address] POCT Glucose (10/08/2017 7:04 AM EDT) athologist Signature POC Glucose 127 65 - 199 [place] mg/dL [facility] Comment: Supplemental ranges: <140 mg/dL before meals <180 mg/dL all other times of the day Specimen Anatomical Collection Method Collection Time Receive d Time (Source) Location / / Volume Laterality Blood specimen 10/08/2017 7:04 AM 018 7:04 (specimen) EDT AM EDT Juan Alberto Dunlap MD POINT OF CARE TEST ORDERABLE S Performing Organization Address City/State/ZIP [place] [address] (ABNORMAL) BLOOD GAS 2 ARTERIAL (10/08/2017 6:25 AM EDT) Analysis Performed At Patho logist Time Signature pH Art 7.42 7.35 - [facility] 7.45 [facility] pCO2 Art 32 (L) 35 - 45 [facility] LABORATORY pO2 Art 108 (H) 85 - 104 [facility] LABORATORY HCO3 Art 20.3 20.[address] - [facility] 26.0 [facility] mmol/L [facility] LABORATORY BE Art -4.2 (L) -3.0 - 3.0 [facility] mmol/L [facility] Hgb Blood Gas 14.0 13.[address] - [facility] 16.5 gm/dL [facility] O2HB Art 96.[address] [facility] 97.0 % [facility] COHB Art 0.3 % [facility] Comment: Nonsmokers: 0.5-1.5% COHB Smokers: Variable, but usually less than 10% Toxic: 20-30% COHB Lethal: Greater than 60% COHB METHB Art 0.6 <=1.5 % [facility] Na Whole Blood 139 135 - 145 mmol/L [facility] K Whole Blood 4.0 3.5 - 5.0 mmol/L [facility] Comment: Please note: Patients with WBC >100,000 may have falsely elevated Potassium levels. Contact the Clinical Chemistry L aboratory if there are any questions. ICa Whole Blood 1.07 (L) 1.15 - 1.33 mmol/L [facility] Comment: Note: ??Total bilirubin higher than 20 m g/dL may lead to falsely low ionized calcium. CL Whole Blood 110 (H) 98 - 107 mmol/L [facility] LABORATORY Gluc Whole Bld 134 65 - 199 mg/dL [facility] Comment: Diabetes: >=200 mg/dL plus symp toms. Lactate WB 1.6 0.5 - 2.2 mmol/L [facility] LABORATORY FIO2 Art 40 % [facility] PF Ratio Art 270 [facility] LABORATORY Specimen Anatomical Collection Method Collection Time Receive d Time (Source) Location / / Volume Laterality Blood specimen 10/08/2017 6:25 AM 018 6:25 (specimen) EDT AM EDT Juan Alberto Dunlap MD CHEMISTRY ORDERABLES Performing Organization Address City/[facility]/ZIP Code Phon e Number [address] POCT Glucose (10/08/2017 6:04 AM EDT) P athologist Signature POC Glucose 145 65 - 199 [facility] Comment: Supplemental ranges: <140 mg/dL before meals <180 mg/dL all other times of the day Specimen Anatomical Collection Method Collection Time Receive d Time (Source) Location / / Volume Laterality Blood specimen 10/08/2017 6:04 AM 018 6:04 (specimen) EDT AM EDT Juan Alberto Dunlap MD POINT OF CARE TEST ORDERABLE S Performing Organization Address City/[facility]/[place] [address] POCT Glucose (10/08/2017 5:03 AM EDT) P athologist Signature POC Glucose 135 65 - [address] [facility] Comment: Supplemental ranges: <140 mg/dL before meals <180 mg/dL all other times of the day Specimen Anatomical Collection Method Collection Time Receive d Time (Source) Location / / Volume Laterality Blood specimen 10/08/2017 5:03 AM 018 5:03 (specimen) EDT AM EDT Juan Alberto Dunlap MD POINT OF CARE TEST ORDERABLE S Performing Organization Address City/State/[place] [address] POCT Glucose (10/08/2017 3:53 AM EDT) P athologist Signature POC Glucose 159 65 - [address] [facility] mg/dL [facility] Comment: Supplemental ranges: <140 mg/dL before meals <180 mg/dL all other times of the day Specimen Anatomical Collection Method Collection Time Receive d Time (Source) Location / / Volume Laterality Blood specimen 10/08/2017 3:53 AM 018 3:53 (specimen) EDT AM EDT Juan Alberto Dunlap MD POINT OF CARE TEST ORDERABLE S Performing Organization Address City/State/ZIP Code Phon e Number [address] Scan, Peripheral Blood (10/08/2017 3:50 AM EDT) [facility] Method Time Signature Plat Estimate Decreased [facility] RBC Morphology Abnormal [facility] Komal Cells 1-5 /HPF [facility] Specimen Anatomical Collection Method Collection Time Receive d Time (Source) Location / / Volume Laterality Blood specimen 10/08/2017 3:50 AM 018 4:10 (specimen) EDT AM EDT Resulting Agency Comment Spec In Lab Emily THORNTON HEMATOLOGY ORDERABLES Performing Organization Address City/State/[place] [address] (ABNORMAL) Differential, Automated (10/08/2017 3:50 AM EDT) [facility] VHX Method Time Signature Neutrophils % 78.0 % [facility] Neutr Abs (ANC) 14.22 (H) 1.70 - [facility] 6.10 [facility] x10(3)/[facility] LABORATORY Lymphocytes % 5.7 % [facility] LABORATORY Lymphocytes Abs 1.0 0.9 - 3.2 [facility] x10(3)/[facility] LABORATORY Monocytes % 15.1 % [facility] LABORATORY Monocyte Abs 2.8 (H) 0.3 - 0.9 [facility] x10(3)/[facility] LABORATORY Eosinophils % 0.0 % [facility]ORY Eosinophils Abs 0.0 0.0 - 0.4 [facility] x10(3)/[facility] LABORATORY Basophils % 0.2 % [facility] Basophils Abs 0.0 0.0 - 0.1 [facility] x10(3)/[facility] LABORATORY Immature Gran % 1.00 % [facility] Comment: Immature granulocytes(IG's)percentage an d absolute count will include metamyelocytes, myelocytes, and promyelo cytes. Blood smears from CBCs yielding IG's will be scanned manually for concor dance. If this scan disagrees with the automated IG or if promyelocytes are not ed, a manual differential will be performed. Nell Gran Abs 0.18 (H) 0.00 - 0.04 x10(3)/[facility] LABORATORY Specimen Anatomical Collection Method Collection Time Receive d Time (Source) Location / / Volume Laterality Blood specimen 10/08/2017 3:50 AM 018 4:10 (specimen) EDT AM EDT Resulting Agency Comment Spec In Lab Emily THORNTON HEMATOLOGY ORDERABLES Performing Organization Address City/State/ZIP [place] [address] (ABNORMAL) Hemogram (10/08/2017 3:50 AM EDT) Analysis Performed At Patho logist Time Signature WBC 18.2 (H) 4.0 - 9.5 [facility] x10(3)/[facility] LABORATORY RBC 4.95 4.58 - [facility] 5.54 [facility] x10(6)/[facility] LABORATORY Hemoglobin 14.6 13.[address] - [facility] 16.5 gm/dL [facility] Hematocrit 43.1 40.5 - [facility] 48.5 % [facility] MCV 87.1 82.[address] - [facility] 93.1 fL [facility] MCH 29.5 27.[address] - [facility] 32.1 pg [facility] MCHC 33.9 32.0 - [place] 35.7 gm/dL [facility] Platelets 135 (L) 145 - 357 [facility] x10(3)/[facility] LABORATORY RDWSD 42.5 [address] [facility] 45.0 [facility] LABORATORY RDWCV 13.4 11.[address] [facility] 13.8 % [facility] MPV 11.8 7.6 - 12.9 [facility] LABORATORY nRBC % Auto 0.0 % [facility]ATORY nRBC Abs Auto 0.000 0.000 - [facility] 0.000 [facility] x10(3)/[facility] LABORATORY Specimen Anatomical Collection Method Collection Time Receive d Time (Source) Location / / Volume Laterality Blood specimen 10/08/2017 3:50 AM 018 4:10 (specimen) EDT AM EDT Resulting Agency Comment Spec In Lab Emily THORNTON HEMATOLOGY ORDERABLES Performing Organization Address City/State/ZIP [place] [address] (ABNORMAL) Electrolytes panel (10/08/2017 3:50 AM EDT) P athologist Signature Sodium 142 135 - [address] [facility] mmol/L [facility] Potassium 4.4 3.5 - 5.0 [facility] mmol/L [facility] Comment: Please note: ??Patients with WBC >100,00 0 may have falsely elevated Potassium levels. ??For accurate Potassium quantif ication in these patients send serum separator tube (gold top) for subsequent determinations. ??Contact the Clinical Chemistry Laboratory if there are any qu estions. Chloride 109 (H) 98 - 107 mmol/L [facility] CO2 19 (L) 22 - 31 mmol/L [facility] Anion Gap 14 5 - 15 mmol/L [facility]ORY Specimen Anatomical Collection Method Collection Time Receive d Time (Source) Location / / Volume Laterality Blood specimen 10/08/2017 3:50 AM 018 4:10 (specimen) EDT AM EDT Resulting Agency Comment Spec In Lab Juan Alberto Dunlap MD CHEMISTRY ORDERABLES Performing Organization Address City/[facility]/[place] [address] (ABNORMAL) Cardiac Enzymes (LEB/CGP) (10/08/2017 3:50 AM EDT) P athologist Signature Troponin-T 1.08 (H) 0.00 - [facility] 0.00 ng/mL [facility] Comment: The 99th percentile for [...] additional sample may be indicated. Reference: Third [place] Definition of Myocardial Infarction. Journal of the [place] [employer] 2012;60:1581-98 CK, Total 614 (H) 0 - 200 unit/L [facility] Specimen Anatomical Collection Method Collection Time Receive d Time (Source) Location / / Volume Laterality Blood specimen 10/08/2017 3:50 AM 018 4:10 (specimen) EDT AM EDT Resulting Agency Comment Spec In Lab Juan Alberto Dunlap MD CHEMISTRY ORDERABLES Performing Organization Address City/[facility]/ZIP Code Phon e Number [place] [id number] Potassium (10/08/2017 3:50 AM EDT) P athologist Signature Potassium 4.4 3.5 - 5.0 [facility]/L [facility] Comment: Please note: ??Patients with WBC >100,00 0 may have falsely elevated Potassium levels. ??For accurate Potassium quantif ication in these patients send serum separator tube (gold top) for subsequent determinations. ??Contact the Clinical Chemistry Laboratory if there are any qu estions. Specimen Anatomical Collection Method Collection Time Receive d Time (Source) Location / / Volume Laterality Blood specimen 10/08/2017 3:50 AM 018 4:10 (specimen) EDT AM EDT Resulting Agency Comment Spec In Lab Juan Alberto Dunlap MD CHEMISTRY ORDERABLES Performing Organization Address City/[facility]/[place] [address] (ABNORMAL) Glucose, fasting (10/08/2017 3:50 AM EDT) athologist Signature Glucose 175 (H) 65 - [address] [facility] Fasting mg/dL [facility] Comment: ?Fasting* Glucose Interpretive C riteria Normal ?65-99 mg/dL Impaired Fasting glucose ?100-125 mg/dL Consistent with Diabetes Mellitus ? >or= 126 mg/dL *Fasting is defined as no caloric intake for at least 8 hours In the absence of unequivocal hypergly cemia a plasma glucose value of >or= 126 mg/dL should be repeated on a subseq uent day. Diagnosis and Classification of Diabetes Mellitus, Position Statement from the [place] [employer]. ??Diabete s Care, Volume 33, Supplement 1, Feb 2009 Specimen Anatomical Collection Method Collection Time Receive d Time (Source) Location / / Volume Laterality Blood specimen 10/08/2017 3:50 AM 018 4:10 (specimen) EDT AM EDT Resulting Agency Comment Spec In Lab Juan Alberto Dunlap MD CHEMISTRY ORDERABLES Performing Organization Address City/[facility]/ZIP [place] [address] Creatinine (10/08/2017 3:50 AM EDT) athologist Signature Creatinine 0.93 0.80 - [place] 1.50 mg/dL [facility] Estimated GFR 90 >=60 [place] mL/min/1.7 [facility] m?? H[facility]PITAL LABORATORY Comment: The eGFR was calculated using the CKD-EP I equation. As with all creatinine based estimates of kidney function, eGFR values calculated with the CKD-EPI equation are not accurate in patients wi th acute kidney failure, extremes of body mass or the acutely ill. [email or web address]/[facility]SAnkf eGFR 104 >=60 mL/min/1.73 m?? [facility] Comment: The eGFR was calculated using the CKD-EP I equation. As with all creatinine based estimates of kidney function, eGFR values calculated with the CKD-EPI equation are not accurate in patients wi th acute kidney failure, extremes of body mass or the acutely ill. http://[place]/[facility]kf Specimen Anatomical Collection Method Collection Time Receive d Time (Source) Location / / Volume Laterality Blood specimen 10/08/2017 3:50 AM 018 4:10 (specimen) EDT AM EDT Resulting Agency Comment Spec In Lab Juan Alberto Dunlap MD CHEMISTRY ORDERABLES Performing Organization Address City/State/ZIP Code Phon e Number [address] BUN (10/08/2017 3:50 AM EDT) athologist Signature BUN 17 10 - 20 [place] mg/dL [facility] Specimen Anatomical Collection Method Collection Time Receive d Time (Source) Location / / Volume Laterality Blood specimen 10/08/2017 3:50 AM 018 4:10 (specimen) EDT AM EDT Resulting Agency Comment Spec In Lab Juan Alberto Dunlap MD CHEMISTRY ORDERABLES Performing Organization Address City/State/ZIP Code Phon e Number [address] POCT Glucose (10/08/2017 3:08 AM EDT) athologist Signature POC Glucose 156 65 - 199 [place] mg/dL [facility] Comment: Supplemental ranges: <140 mg/dL before meals <180 mg/dL all other times of the day Specimen Anatomical Collection Method Collection Time Receive d Time (Source) Location / / Volume Laterality Blood specimen 10/08/2017 3:08 AM 018 3:08 (specimen) EDT AM EDT Juan Alberto Dunlap MD POINT OF CARE TEST ORDERABLE S Performing Organization Address City/State/ZIP Code Phon e Number [address] POCT Glucose (10/08/2017 1:59 AM EDT) athologist Signature POC Glucose 158 65 - 199 [place] mg/dL [facility] Comment: Supplemental ranges: <140 mg/dL before meals <180 mg/dL all other times of the day Specimen Anatomical Collection Method Collection Time Receive d Time (Source) Location / / Volume Laterality Blood specimen 10/08/2017 1:59 AM 018 1:59 (specimen) EDT AM EDT Juan Alberto Dunlap MD POINT OF CARE TEST ORDERABLE S Performing Organization Address City/[facility]/ZIP Code Phon e Number [address] POCT Glucose (10/08/2017 1:06 AM EDT) athologist Signature POC Glucose 195 65 - 199 [place] mg/dL [facility] Comment: Supplemental ranges: <140 mg/dL before meals <180 mg/dL all other times of the day Specimen Anatomical Collection Method Collection Time Receive d Time (Source) Location / / Volume Laterality Blood specimen 10/08/2017 1:06 AM 018 1:06 (specimen) EDT AM EDT Juan Alberto Dunlap MD POINT OF CARE TEST ORDERABLE S Performing Organization Address City/State/ZIP Code Phon e Number [address] POCT Glucose (10/07/2017 11:52 PM EDT) athologist Signature POC Glucose 195 65 - 199 [place] mg/dL [facility] Comment: Supplemental ranges: <140 mg/dL before meals <180 mg/dL all other times of the day Specimen Anatomical Collection Method Collection Time Receive d Time (Source) Location / / Volume Laterality Blood specimen 10/07/2017 11:52 8 (specimen) PM EDT 11:52 PM EDT Juan Alberto Dunlap MD POINT OF CARE TEST ORDERABLE S Performing Organization Address City/[facility]/[place] [address] Potassium (10/07/2017 11:50 PM EDT) athologist Signature Potassium 4.5 3.5 - 5.0 [facility]/L [facility] Comment: Please note: ??Patients with WBC >100,00 0 may have falsely elevated Potassium levels. ??For accurate Potassium quantif ication in these patients send serum separator tube (gold top) for subsequent determinations. ??Contact the Clinical Chemistry Laboratory if there are any qu estions. Specimen Anatomical Collection Method Collection Time Receive d Time (Source) Location / / Volume Laterality Blood specimen 10/07/2017 11:50 8 (specimen) PM EDT 12:04 AM EDT Resulting Agency Comment Spec In Lab Juan Alberto Dunlap MD CHEMISTRY ORDERABLES Performing Organization Address City/[facility]/[place] [address] POCT Glucose (10/07/2017 11:01 PM EDT) athologist Signature POC Glucose 177 65 - 199 [place] mg/dL [facility] Comment: Supplemental ranges: <140 mg/dL before meals <180 mg/dL all other times of the day Specimen Anatomical Collection Method Collection Time Receive d Time (Source) Location / / Volume Laterality Blood specimen 10/07/2017 11:01 8 (specimen) PM EDT 11:01 PM EDT Juan Alberto Dunlap MD POINT OF CARE TEST ORDERABLE S Performing Organization Address City/State/ZIP Code Phon e Number [place] [id number]OS[address] POCT Glucose (10/07/2017 9:59 PM EDT) P athologist Signature POC Glucose 173 65 - 199 [facility] mg/dL [facility] Comment: Supplemental ranges: <140 mg/dL before meals <180 mg/dL all other times of the day Specimen Anatomical Collection Method Collection Time Receive d Time (Source) Location / / Volume Laterality Blood specimen 10/07/2017 9:59 PM 018 9:59 (specimen) EDT PM EDT Juan Alberto Dunlap MD POINT OF CARE TEST ORDERABLE S Performing Organization Address City/State/[place] [address] POCT Glucose (10/07/2017 9:00 PM EDT) athologist Signature POC Glucose 182 65 - 199 [place] mg/dL [facility] Comment: Supplemental ranges: <140 mg/dL before meals <180 mg/dL all other times of the day Specimen Anatomical Collection Method Collection Time Receive d Time (Source) Location / / Volume Laterality Blood specimen 10/07/2017 9:00 PM 018 9:00 (specimen) EDT PM EDT Juan Alberto Dunlap MD POINT OF CARE TEST ORDERABLE S Performing Organization Address City/State/[place] [address] POCT Glucose (10/07/2017 7:58 PM EDT) athologist Signature POC Glucose 193 65 - 199 [place] mg/dL [facility] Comment: Supplemental ranges: <140 mg/dL before meals <180 mg/dL all other times of the day Specimen Anatomical Collection Method Collection Time Receive d Time (Source) Location / / Volume Laterality Blood specimen 10/07/2017 7:58 PM 018 7:58 (specimen) EDT PM EDT Juan Alberto Dunlap MD POINT OF CARE TEST ORDERABLE S Performing Organization Address City/State/[place] [address] (ABNORMAL) POCT Glucose (10/07/2017 6:28 PM EDT) athologist Signature POC Glucose 221 (H) 65 - [address] [facility] Comment: Supplemental ranges: <140 mg/dL before meals <180 mg/dL all other times of the day Specimen Anatomical Collection Method Collection Time Receive d Time (Source) Location / / Volume Laterality Blood specimen 10/07/2017 6:28 PM 018 6:28 (specimen) EDT PM EDT Juan Alberto Dunlap MD POINT OF CARE TEST ORDERABLE S Performing Organization Address City/[facility]/[place] [address] Hemoglobin (10/07/2017 6:20 PM EDT) athologist Signature Hemoglobin 15.8 13.7 - 16.5 [facility] g[facility] Specimen Anatomical Collection Method Collection Time Receive d Time (Source) Location / / Volume Laterality Blood specimen 10/07/2017 6:20 PM 018 6:36 (specimen) EDT PM EDT Resulting Agency Comment Spec In Lab Juan Alberto Dunlap MD HEMATOLOGY ORDERABLES Performing Organization Address City/[facility]/[place] [address] Potassium (10/07/2017 6:20 PM EDT) athologist Signature Potassium 3.5 3.5 - 5.0 [facility] mmol/L [facility] Comment: Please note: ??Patients with WBC >100,00 0 may have falsely elevated Potassium levels. ??For accurate Potassium quantif ication in these patients send serum separator tube (gold top) for subsequent determinations. ??Contact the Clinical Chemistry Laboratory if there are any qu estions. Specimen Anatomical Collection Method Collection Time Receive d Time (Source) Location / / Volume Laterality Blood specimen 10/07/2017 6:20 PM 018 6:36 (specimen) EDT PM EDT Resulting Agency Comment Spec In Lab Juan Alberto Dunlap MD CHEMISTRY ORDERABLES Performing Organization Address City/State/ZIP [place] [address] POCT Glucose (10/07/2017 5:14 PM EDT) P athologist Signature POC Glucose 195 65 - [address] [facility] mg/dL [facility] Comment: Supplemental ranges: <140 mg/dL before meals <180 mg/dL all other times of the day Specimen Anatomical Collection Method Collection Time Receive d Time (Source) Location / / Volume Laterality Blood specimen 10/07/2017 5:14 PM 018 5:14 (specimen) EDT PM EDT Juan Alberto Dunlap MD POINT OF CARE TEST ORDERABLE S Performing Organization Address City/[facility]/[place] [address] (ABNORMAL) BLOOD GAS 2 ARTERIAL (10/07/2017 3:52 PM EDT) Analysis Performed At Patho logist Time Signature pH Art 7.36 7.[address] - [facility] 7.45 [facility] pCO2 Art 35 35 - 45 [facility] LABORATORY pO2 Art 256 (H) 85 - 104 [facility] LABORATORY HCO3 Art 19.2 (L) 20.[address] - [facility] 26.0 [facility] mmol/L [facility] LABORATORY BE Art -6.2 (L) -3.0 - 3.0 [facility] mmol/L [facility] Hgb Blood Gas 15.8 13.[address] - [facility] 16.5 gm/dL [facility] O2HB Art 97.7 (H) 94.0 - [facility] 97.0 % [facility] COHB Art 0.4 % [facility] Comment: Nonsmokers: 0.5-1.5% COHB Smokers: Variable, but usually less than 10% Toxic: 20-30% COHB Lethal: Greater than 60% COHB METHB Art 0.7 <=1.5 % [facility] Na Whole Blood 140 135 - 145 mmol/L [facility] K Whole Blood 3.3 (L) 3.5 - 5.0 mmol/L [facility] Comment: Please note: Patients with WBC >100,000 may have falsely elevated Potassium levels. Contact the Clinical Chemistry L aboratory if there are any questions. ICa Whole Blood 1.13 (L) 1.15 - 1.33 mmol/L [facility] Comment: Note: ??Total bilirubin higher than 20 m g/dL may lead to falsely low ionized calcium. CL Whole Blood 108 (H) 98 - 107 mmol/L [facility] Gluc Whole Bld 204 (H) 65 - 199 mg/dL [facility] Comment: Diabetes: >=200 mg/dL plus symp toms. Lactate WB 4.7 (Critical) 0.5 - 2.2 mmol/L [facility] Comment: Noted by percussion instrument tuner. FIO2 Art 100 % [facility] PF Ratio Art 256 [facility] Specimen Anatomical Collection Method Collection Time Receive d Time (Source) Location / / Volume Laterality Blood specimen 10/07/2017 3:52 PM 018 3:52 (specimen) EDT PM EDT Juan Alberto Dunlap MD CHEMISTRY ORDERABLES Performing Organization Address City/State/ZIP [place] [address] XR Chest PA or AP 1 view (10/07/2017 3:33 PM EDT) Anatomical Region Laterality Modality Chest N/A Digital Radiography Specimen (Source) Anatomical Location Collection Method / Collectio n Time Received Time / Laterality Volume Impressions 10/07/2017 3:36 PM EDT FINDINGS/IMPRESSION: Cardiomegaly. Sternotomy and CABG suture s are noted. Diffuse pulmonary edema, worse on the ri ght side. Trace of bilateral pleural effusions. An endotracheal tube terminates approxim ately 5 cm above the duong. An enteric tube is going below the left hemidiaphragm. The tip is not well seen. 2. Mediastinal drainages in the chest. T he left one is kinked in the distal aspect. Cardiac device is noted. A Winfield-Diane catheter terminates at the l ikely position of the proximal pulmonary outflow tract. No pneumothorax. Narrative 10/07/2017 3:36 PM EDT EXAMINATION: XR CHEST PA OR AP 1 VIEW CLINICAL HISTORY: s/p mvrepair, cabg x 2 TECHNIQUE: AP supine chest COMPARISON: None Procedure Note Tg Reese MD - 10/07/2017 EXAMINATION: XR CHEST PA OR AP 1 VIEW CLINICAL HISTORY: s/p mvrepair, cabg x 2 TECHNIQUE: AP supine chest COMPARISON: None IMPRESSION FINDINGS/IMPRESSION: Cardiomegaly. Sternotomy and CABG suture s are noted. Diffuse pulmonary edema, worse on the ri ght side. Trace of bilateral pleural effusions. An endotracheal tube terminates approxim ately 5 cm above the duong. An enteric tube is going below the left hemidiaphragm. The tip is not well seen. 2. Mediastinal drainages in the chest. T he left one is kinked in the distal aspect. Cardiac device is noted. A Winfield-Diane catheter terminates at the l ikely position of the proximal pulmonary outflow tract. No pneumothorax. Juan Alberto Dunlap MD IMG DX ORDERABLES EKG 12 Lead (10/07/2017 3:29 PM EDT) [facility] Method Time Signature Ventricular rate 87 BPM MUSE SYSTEM Atrial Rate 87 BPM MUSE SYSTEM P-R Interval 178 ms MUSE SYSTEM QRS Duration 114 ms MUSE SYSTEM Q-T Interval 436 ms MUSE SYSTEM QTC Calculated 524 ms MUSE SYSTEM (Bezet) Calculated P [place] 67 degrees MUSE SYSTEM Calculated R [place] 84 degrees MUSE SYSTEM Calculated T [place] 92 degrees MUSE SYSTEM INTERPRETATION Normal sinus rhythm MUSE SYSTEM Inferior infarct (cited on or before 23-FEB-1995) Prolonged QT ACUTE AR / STEMI Abnormal ECG When compared with ECG of 09-AUG-2017 14:43, ST elevation now present in Inferior leads Confirmed by MD Chelsie, Jl Aguilar ([id number]) on 10/07/2017 7:47:3 8 PM Specimen Anatomical Collection Method Collection Time Receive d Time (Source) Location / / Volume Laterality 10/07/2017 3:29 PM 8 7:47 EDT PM EDT Juan Alberto Dunlap MD ECG ORDERABLES Performing Organization Address City/State/ZIP Code Phon e Number MUSE SYSTEM (ABNORMAL) BLOOD GAS 2 ARTERIAL (10/07/2017 3:04 PM EDT) Analysis Performed At Patho logist Time Signature pH Art 7.32 (L) 7.35 - [facility] 7.45 [facility] pCO2 Art 41 35 - 45 [facility] mmHg [facility] pO2 Art 136 (H) 85 - 104 [facility] LABORATORY HCO3 Art 20.9 20.0 - [facility] 26.0 [facility] mmol/L [facility] LABORATORY BE Art -5.2 (L) -3.0 - 3.0 [facility] mmol/L [facility] Hgb Blood Gas 15.4 13.7 - [facility] 16.5 gm/dL [facility] O2HB Art 96.6 94.0 - [facility] 97.0 % [facility] COHB Art 0.8 % [facility] Comment: Nonsmokers: 0.5-1.5% COHB Smokers: Variable, but usually less than 10% Toxic: 20-30% COHB Lethal: Greater than 60% COHB METHB Art 0.6 <=1.5 % [facility] Na Whole Blood 140 135 - 145 mmol/L [facility] K Whole Blood 3.1 (L) 3.5 - 5.0 mmol/L [facility] Comment: Please note: Patients with WBC >100,000 may have falsely elevated Potassium levels. Contact the Clinical Chemistry L aboratory if there are any questions. ICa Whole Blood 1.16 1.15 - 1.33 mmol/L [facility] Comment: Note: ??Total bilirubin higher than 20 m g/dL may lead to falsely low ionized calcium. CL Whole Blood 108 (H) 98 - 107 mmol/L [facility] Gluc Whole Bld 179 65 - 199 mg/dL [facility] Comment: Diabetes: >=200 mg/dL plus symp toms. Lactate WB 3.7 (H) 0.5 - 2.2 mmol/L [facility] LABORATORY FIO2 Art 100 % [facility] PF Ratio Art 136 [facility] Specimen Anatomical Collection Method Collection Time Receive d Time (Source) Location / / Volume Laterality Blood specimen 10/07/2017 3:04 PM 018 3:04 (specimen) EDT PM EDT Juan Alberto Dunlap MD CHEMISTRY ORDERABLES Performing Organization Address City/State/ZIP [place] [address] (ABNORMAL) BLOOD GAS 2 ARTERIAL (10/07/2017 1:27 PM EDT) Analysis Performed At Patho logist Time Signature pH Art 7.30 (L) 7.35 - [facility] 7.45 [facility] pCO2 Art 48 (H) 35 - 45 [facility] LABORATORY pO2 Art 176 (H) 85 - 104 [facility] LABORATORY HCO3 Art 23.1 20.0 - [facility] 26.0 [facility] mmol/[facility] LABORAT[facility] BE Art -3.3 (L) -3.0 - 3.0 [facility] mmol/L [facility] Hgb Blood Gas 12.8 (L) 13.7 - [facility] 16.5 gm/dL [facility] O2HB Art 97.9 (H) 94.0 - [facility] 97.0 % [facility] COHB Art 0.5 % [facility] Comment: Nonsmokers: 0.5-1.5% COHB Smokers: Variable, but usually less than 10% Toxic: 20-30% COHB Lethal: Greater than 60% COHB METHB Art 0.3 <=1.5 % [facility] Na Whole Blood 135 135 - 145 mmol/L [facility] K Whole Blood 3.2 (L) 3.5 - 5.0 mmol/L [facility] Comment: Please note: Patients with WBC >100,000 may have falsely elevated Potassium levels. Contact the Clinical Chemistry L aboratory if there are any questions. ICa Whole Blood 1.32 1.15 - 1.33 mmol/L [facility] Comment: Note: ??Total bilirubin higher than 20 m g/dL may lead to falsely low ionized calcium. CL Whole Blood 107 98 - 107 mmol/L [facility] Gluc Whole Bld 187 65 - 199 mg/dL [facility] Comment: Diabetes: >=200 mg/dL plus symp toms. Lactate WB 2.5 (H) 0.5 - 2.2 mmol/L [facility] Specimen Anatomical Collection Method Collection Time Receive d Time (Source) Location / / Volume Laterality Blood specimen 10/07/2017 1:27 PM 018 1:27 (specimen) EDT PM EDT Juan Alberto Dunlap MD CHEMISTRY ORDERABLES Performing Organization Address City/[facility]/[place] [address] (ABNORMAL) Thrombin time (10/07/2017 1:27 PM EDT) athologist Signature Thrombin Time 18 (H) 10 - 17 [facility] LABORATORY Comment: A prolongation in the thrombin time (>20 seconds) may be indicative of hypofibrinogenemia or dysfibrinogenemia. The thrombin time will be prolonged, often markedly so, by the presence of he ponce or direct thrombin inhibitors (argatroban, bivalirudin, dabigatran) in the specimen. Specimen Anatomical Collection Method Collection Time Receive d Time (Source) Location / / Volume Laterality Blood specimen 10/07/2017 1:27 PM 018 1:33 (specimen) EDT PM EDT Resulting Agency Comment Spec In Lab Lynn Mathew MD HEMATOLOGY ORDERABLES Performing Organization Address City/[facility]/ZIP Code Phon e Number [address] Fibrinogen (10/07/2017 1:27 PM EDT) athologist Signature Fibrinogen 233 200 - 393 [facility] mg/dL [facility] Comment: Called by: ML, Read back by: Magaly Myers , Date/Time:10/07/17 14:13. A fibrinogen level >100 mg/dL is adequat e for hemostasis in most patients without underlying bleeding disorders. Specimen Anatomical Collection Method Collection Time Receive d Time (Source) Location / / Volume Laterality Blood specimen 10/07/2017 1:27 PM 018 1:33 (specimen) EDT PM EDT Resulting Agency Comment Spec In Lab Lynn Mathew MD HEMATOLOGY ORDERABLES Performing Organization Address [facility]/[place] [address] APTT (10/07/2017 1:27 PM EDT) P athologist Signature PTT 31 25 - 37 sec [facility] Comment: The PTT is NOT appropriate for heparin m onitoring. Use the Anti-Xa level for heparin monitoring (HEP UFH) or LMWH mon itoring (HEP LMW). A PTT less than 37 seconds generally indicates adequate hem ostasis. Specimen Anatomical Collection Method Collection Time Receive d Time (Source) Location / / Volume Laterality Blood specimen 10/07/2017 1:27 PM 018 1:33 (specimen) EDT PM EDT Resulting Agency Comment Spec In Lab Lynn Mathew MD HEMATOLOGY ORDERABLES Performing Organization Address City/[facility] [place] [address] (ABNORMAL) Prothrombin Time (10/07/2017 1:27 PM EDT) P athologist Signature PT 15.1 (H) 9.4 - 12.5 [facility] LABORATORY INR 1.4 [facility] LABORATORY Comment: An INR <2.0 indicates adequate procoagul ant activity for hemostasis in most patients without underlying bleeding dis orders, though the INR may not adequately reflect hemostatic capacity i n patients with liver disease and synthetic impairment. The recommended ta rget INR range for therapeutic anticoagulation is 2.0 ? 3.0 for most applications, though lower and higher ranges may be appropriate depending on c linical circumstances. Specimen Anatomical Collection Method Collection Time Receive d Time (Source) Location / / Volume Laterality Blood specimen 10/07/2017 1:27 PM 018 1:33 (specimen) EDT PM EDT Resulting Agency Comment Spec In Lab Lynn Mathew MD HEMATOLOGY ORDERABLES Performing Organization Address City/State/ZIP [place] [address] (ABNORMAL) Hemogram (10/07/2017 1:27 PM EDT) P athologist Signature WBC 20.3 (H) 4.0 - 9.5 [facility] x10(3)/[facility] LABORATORY RBC 4.07 (L) 4.58 - [facility] 5.54 [facility] x10(6)/[facility] LABORATORY Hemoglobin 11.8 (L) 13.7 - [facility] 16.5 gm/dL [facility] Hematocrit 36.8 (L) 40.5 - [facility] 48.5 % [facility] Comment: This result has been called to JAMAICA Malik by BRITTNEY VANN on 10 07 2017 at 1341, and has been read back. MCV 90.4 82.9 - 93.1 [facility] LABORATORY MCH 29.0 27.5 - 32.1 pg [facility] LABORATORY MCHC 32.1 32.0 - 35.7 gm/dL [facility] LABORATORY Platelets 140 (L) 145 - 357 x10(3)/[facility] LABORATORY RDWSD 42.9 36.0 - 45.0 [facility] LABORATORY RDWCV 13.1 11.4 - 13.8 % [facility] LABORATORY MPV 11.9 7.6 - 12.9 [facility] LABORATORY nRBC % Auto 0.0 % [facility] LABORATORY nRBC Abs Auto 0.000 0.000 - 0.000 x10(3)/[facility] LABORATORY Specimen Anatomical Collection Method Collection Time Receive d Time (Source) Location / / Volume Laterality Blood specimen 10/07/2017 1:27 PM 018 1:33 (specimen) EDT PM EDT Resulting Agency Comment Spec In Lab Lynn Mathew MD HEMATOLOGY ORDERABLES Performing Organization Address City/State/ZIP [place] [address] (ABNORMAL) BLOOD GAS 2 ARTERIAL (10/07/2017 12:50 PM EDT) Analysis Performed At Patho logist Time Signature pH Art 7.32 (L) 7.35 - [facility] 7.45 [facility] pCO2 Art 46 (H) 35 - 45 [facility] mmHg [facility] pO2 Art 313 (H) 85 - 104 [facility] LABORATORY HCO3 Art 23.4 20.0 - [facility] 26.0 [facility] mmol/L [facility] LABORATORY BE Art -2.7 -3.0 - 3.0 [facility] mmol/L [facility] Hgb Blood Gas 11.1 (L) 13.7 - [facility] 16.5 gm/dL [facility] O2HB Art 98.4 (H) 94.0 - [facility] 97.0 % [facility] COHB Art 0.4 % [facility] Comment: Nonsmokers: 0.5-1.5% COHB Smokers: Variable, but usually less than 10% Toxic: 20-30% COHB Lethal: Greater than 60% COHB METHB Art 0.3 <=1.5 % [facility] Na Whole Blood 129 (L) 135 - 145 mmol/L [facility] K Whole Blood 4.7 3.5 - 5.0 mmol/L [facility] Comment: Please note: Patients with WBC >100,000 may have falsely elevated Potassium levels. Contact the Clinical Chemistry L aboratory if there are any questions. ICa Whole Blood 1.27 1.15 - 1.33 mmol/L [facility] Comment: Note: ??Total bilirubin higher than 20 m g/dL may lead to falsely low ionized calcium. CL Whole Blood 105 98 - 107 mmol/L [facility] Gluc Whole Bld 225 (H) 65 - 199 mg/dL [facility] Comment: Diabetes: >=200 mg/dL plus symp toms. Lactate WB 2.2 0.5 - 2.2 mmol/L [facility] LABORATORY Specimen Anatomical Collection Method Collection Time Receive d Time (Source) Location / / Volume Laterality Blood specimen 10/07/2017 12:50 8 (specimen) PM EDT 12:50 PM EDT Juan Alberto Dunlap MD CHEMISTRY ORDERABLES Performing Organization Address City/State/ZIP Code Phon e Number [place] [id number] [address] Platelet count (10/07/2017 12:39 PM EDT) P athologist Signature Platelets 150 145 - 357 [facility] x10(3)/[facility] LABORATORY Plat Immature 6.6 0.0 - 7.4 [facility] % % [facility] Comment: Limitation of the Immature Platelet Frac tion (IPF)-May be less reliable when the platelet count is less than 69s909/u L due to statistical imprecision. The IPF value provides an assessment of the Bone Marrow production status. ??It is useful in differentiating Thrombocyto penia caused by platelet destruction/consumption versus decreased production. It also helps to determine the imminent release of platelets and ca n be therefore a helpful parameter in Chemotherapy and Bone marrow transplant patients. ELEVATED IPF value: ?? When the bone marrow is in a state of over production such as when increased destruction and consumption are the unde rlying issue. ?? When the marrow is recovering post ch emotherapy or bone marrow transplant. LOW to NORMAL IPF value: ?? When the bone marrow in not respondin g and is in a decreased state of production. References: [employer] The Clinical Value of the Immature Platelet Fraction (IPF) in Cell Recovery Document Number [id number] 07/2010 [employer] The Role of the Imm ature Platelet Fraction (IPF) in the Differential Diagnosis of Thrombocytopen ia, Document [id number] V007/02/13 P007/04 Specimen Anatomical Collection Method Collection Time Receive d Time (Source) Location / / Volume Laterality Blood specimen 10/07/2017 12:39 8 (specimen) PM EDT 12:45 PM EDT Resulting Agency Comment Spec In Lab Juan Alberto Dunlap MD HEMATOLOGY ORDERABLES Performing Organization Address City/State/[place] [address] (ABNORMAL) Hemoglobin and Hematocrit, blood (10/07/2017 12:39 PM EDT) P athologist Signature Hemoglobin 10.8 (L) 13.7 - [facility] 16.5 gm/dL [facility] Hematocrit 32.1 (L) 40.5 - [facility] 48.5 % [facility] Comment: This result has been called to MAGALY ALEMAN by HEIDY DONALD on 10 07 2017 at 1251, and has been read back. Specimen Anatomical Collection Method Collection Time Receive d Time (Source) Location / / Volume Laterality Blood specimen 10/07/2017 12:39 8 (specimen) PM EDT 12:45 PM EDT Resulting Agency Comment Spec In Lab Juan Alberto Dunlap MD HEMATOLOGY ORDERABLES Performing Organization Address City/State/[place] [address] Fibrinogen (10/07/2017 12:39 PM EDT) athologist Signature Fibrinogen 213 200 - 393 [facility] mg/dL [facility] Comment: Called by: YENI, Read back by: Magaly garcia, Date/Time:10/07/17 12:57. A fibrinogen level >100 mg/dL is adequat e for hemostasis in most patients without underlying bleeding disorders. Specimen Anatomical Collection Method Collection Time Receive d Time (Source) Location / / Volume Laterality Blood specimen 10/07/2017 12:39 8 (specimen) PM EDT 12:45 PM EDT Resulting Agency Comment Spec In Lab Juan Alberto Dunlap MD HEMATOLOGY ORDERABLES Performing Organization Address City/State/[place] [address] (ABNORMAL) BLOOD GAS 2 ARTERIAL (10/07/2017 12:16 PM EDT) Analysis Performed At Patho logist Time Signature pH Art 7.37 7.35 - [facility] 7.45 [facility] pCO2 Art 41 35 - 45 [facility] mmHg [facility] pO2 Art 255 (H) 85 - 104 [facility] LABORATORY HCO3 Art 23.4 20.0 - [facility] 26.0 [facility] mmol/[facility] LABORATORY BE Art -1.9 -3.0 - 3.0 [facility] mmol/L [facility] Hgb Blood Gas 11.8 (L) 13.7 - [facility] 16.5 gm/dL [facility] O2HB Art 98.3 (H) 94.0 - [facility] 97.0 % [facility] COHB Art 0.1 % [facility] Comment: Nonsmokers: 0.5-1.5% COHB Smokers: Variable, but usually less than 10% Toxic: 20-30% COHB Lethal: Greater than 60% COHB METHB Art 0.3 <=1.5 % [facility] Na Whole Blood 132 (L) 135 - 145 mmol/L [facility] K Whole Blood 5.2 (H) 3.5 - 5.0 mmol/L [facility]ORY Comment: Please note: Patients with WBC >100,000 may have falsely elevated Potassium levels. Contact the Clinical Chemistry L aboratory if there are any questions. ICa Whole Blood 0.98 (L) 1.15 - 1.33 mmol/L [facility] Comment: Note: ??Total bilirubin higher than 20 m g/dL may lead to falsely low ionized calcium. CL Whole Blood 105 98 - 107 mmol/L [facility]ORY Gluc Whole Bld 223 (H) 65 - 199 mg/dL [facility] Comment: Diabetes: >=200 mg/dL plus symp toms. Lactate WB 2.1 0.5 - 2.2 mmol/L [facility] LABORATORY Specimen Anatomical Collection Method Collection Time Receive d Time (Source) Location / / Volume Laterality Blood specimen 10/07/2017 12:16 8 (specimen) PM EDT 12:16 PM EDT Juan Alberto Dunlap MD CHEMISTRY ORDERABLES Performing Organization Address City/State/ZIP [place] [address] (ABNORMAL) BLOOD GAS 2 ARTERIAL (10/07/2017 11:43 AM EDT) Analysis Performed At Patho logist Time Signature pH Art 7.38 7.35 - [facility] 7.45 [facility] pCO2 Art 36 35 - 45 [facility] LABORATORY pO2 Art 327 (H) 85 - 104 [facility] LABORATORY HCO3 Art 20.9 20.0 - [facility] 26.0 [facility] mmol/L [facility] LABORATORY BE Art -4.3 (L) -3.0 - 3.0 [facility] mmol/L [facility] Hgb Blood Gas 11.7 (L) 13.7 - [facility] 16.5 gm/dL [facility] O2HB Art 98.1 (H) 94.0 - [facility] 97.0 % [facility] COHB Art 0.8 % [facility]ORY Comment: Nonsmokers: 0.5-1.5% COHB Smokers: Variable, but usually less than 10% Toxic: 20-30% COHB Lethal: Greater than 60% COHB METHB Art 0.3 <=1.5 % [facility]ORY Na Whole Blood 129 (L) 135 - 145 mmol/L [facility] K Whole Blood 4.8 3.5 - 5.0 mmol/L [facility] Comment: Please note: Patients with WBC >100,000 may have falsely elevated Potassium levels. Contact the Clinical Chemistry L aboratory if there are any questions. ICa Whole Blood 1.00 (L) 1.15 - 1.33 mmol/L [facility] Comment: Note: ??Total bilirubin higher than 20 m g/dL may lead to falsely low ionized calcium. CL Whole Blood 104 98 - 107 mmol/L [facility] Gluc Whole Bld 218 (H) 65 - 199 mg/dL [facility] Comment: Diabetes: >=200 mg/dL plus symp toms. Lactate WB 1.9 0.5 - 2.2 mmol/L [facility] LABORATORY Specimen Anatomical Collection Method Collection Time Receive d Time (Source) Location / / Volume Laterality Blood specimen 10/07/2017 11:43 08/17/201 8 (specimen) AM EDT 11:43 AM EDT Juan Alberto Dunlap MD CHEMISTRY ORDERABLES Performing Organization Address City/State/ZIP [place] [address] (ABNORMAL) BLOOD GAS 2 VENOUS (10/07/2017 11:12 AM EDT) [facility] gist Method Time Signature pH Stefan 7.26 7.32 - [facility] (Critical) 7.42 [facility] pCO2 Stefan 45 41 - 51 [facility] LABORATORY pO2 Stefan 55 (H) 25 - 40 [facility] LABORATORY HCO3 Stefan 19.6 mmol/L [facility] BE Stefan -7.5 mmol/L [facility] Hgb Blood Gas 12.5 (L) 13.7 - [facility] 16.5 gm/dL [facility] O2HB Stefan 82.6 % [facility] COHB Stefan 0.9 % [facility] Comment: Nonsmokers: 0.5-1.5% COHB Smokers: Variable, but usually less than 10% Toxic: 20-30% COHB Lethal: Greater than 60% COHB METHB Stefan 0.3 <=1.5 % [facility] Na Whole Blood 134 (L) 135 - 145 mmol/L [facility] K Whole Blood 3.9 3.5 - 5.0 mmol/L [facility] Comment: Please note: Patients with WBC >100,000 may have falsely elevated Potassium levels. Contact the Clinical Chemistry L aboratory if there are any questions. ICa Whole Blood 1.04 (L) 1.15 - 1.33 mmol/L [facility] Comment: Note: ??Total bilirubin higher than 20 m g/dL may lead to falsely low ionized calcium. CL Whole Blood 105 98 - 107 mmol/L [facility] Gluc Whole Bld 227 (H) 65 - 199 mg/dL [facility] Comment: Diabetes: >=200 mg/dL plus symp toms Lactate WB 1.9 0.5 - 2.2 mmol/L [facility] LABORATORY BGas Source Venous [facility] LABOR[facility]ORY Specimen Anatomical Collection Method Collection Time Receive d Time (Source) Location / / Volume Laterality Blood specimen 10/07/2017 11:12 8 (specimen) AM EDT 11:12 AM EDT Juan Alberto Dunlap MD CHEMISTRY ORDERABLES Performing Organization Address City/State/ZIP [place] [address] (ABNORMAL) BLOOD GAS 2 ARTERIAL (10/07/2017 11:10 AM EDT) Analysis Performed At Patho logist Time Signature pH Art 7.32 (L) 7.35 - [facility] 7.45 [facility] pCO2 Art 43 35 - 45 [facility] LABORATORY pO2 Art 389 (H) 85 - 104 [facility] LABORATORY HCO3 Art 21.4 20.0 - [facility] 26.0 [facility] mmol/[facility] LABORATORY BE Art -4.8 (L) -3.0 - 3.0 [facility] mmol/L [facility] Hgb Blood Gas 12.6 (L) 13.7 - [facility] 16.5 gm/dL [facility] O2HB Art 98.6 (H) 94.0 - [facility] 97.0 % [facility] COHB Art 0.3 % [facility] LABOR[facility]ORY Comment: Nonsmokers: 0.5-1.5% COHB Smokers: Variable, but usually less than 10% Toxic: 20-30% COHB Lethal: Greater than 60% COHB METHB Art 0.3 <=1.5 % [facility] Na Whole Blood 134 (L) 135 - 145 mmol/L [facility] K Whole Blood 4.0 3.5 - 5.0 mmol/L [facility] Comment: Please note: Patients with WBC >100,000 may have falsely elevated Potassium levels. Contact the Clinical Chemistry L aboratory if there are any questions. ICa Whole Blood 1.00 (L) 1.15 - 1.33 mmol/L [facility] Comment: Note: ??Total bilirubin higher than 20 m g/dL may lead to falsely low ionized calcium. CL Whole Blood 106 98 - 107 mmol/L [facility] Gluc Whole Bld 233 (H) 65 - 199 mg/dL [facility] Comment: Diabetes: >=200 mg/dL plus symp toms. Lactate WB 2.4 (H) 0.5 - 2.2 mmol/L [facility] Specimen Anatomical Collection Method Collection Time Receive d Time (Source) Location / / Volume Laterality Blood specimen 10/07/2017 11:10 8 (specimen) AM EDT 11:10 AM EDT Juan Alberto Dunlap MD CHEMISTRY ORDERABLES Performing Organization Address City/State/ZIP [place] [address] (ABNORMAL) BLOOD GAS 2 ARTERIAL (10/07/2017 10:39 AM EDT) Analysis Performed At Patho logist Time Signature pH Art 7.30 (L) 7.35 - [facility] 7.45 [facility] pCO2 Art 40 35 - 45 [facility] pO2 Art 259 (H) 85 - 104 [facility] HCO3 Art 19.2 (L) 20.[address] - [facility] 26.0 [facility] mmol/[facility] BE Art -7.1 (L) -3.0 - 3.0 [facility] mmol/L [facility] Hgb Blood Gas 15.4 13.[address] - [facility] 16.5 gm/dL [facility] O2HB Art 98.1 (H) 94.0 - [facility] 97.0 % [facility] COHB Art 0.9 % [facility] Comment: Nonsmokers: 0.5-1.5% COHB Smokers: Variable, but usually less than 10% Toxic: 20-30% COHB Lethal: Greater than 60% COHB METHB Art 0.3 <=1.5 % [facility] Na Whole Blood 138 135 - 145 mmol/L [facility] K Whole Blood 3.7 3.5 - 5.0 mmol/L [facility] Comment: Please note: Patients with WBC >100,000 may have falsely elevated Potassium levels. Contact the Clinical Chemistry L aboratory if there are any questions. ICa Whole Blood 1.09 (L) 1.15 - 1.33 mmol/L [facility] Comment: Note: ??Total bilirubin higher than 20 m g/dL may lead to falsely low ionized calcium. CL Whole Blood 107 98 - 107 mmol/L [facility] Gluc Whole Bld 223 (H) 65 - 199 mg/dL [facility] Comment: Diabetes: >=200 mg/dL plus symp toms. Lactate WB 2.0 0.5 - 2.2 mmol/L [facility] Specimen Anatomical Collection Method Collection Time Receive d Time (Source) Location / / Volume Laterality Blood specimen 10/07/2017 10:39 8 (specimen) AM EDT 10:39 AM EDT Juan Alberto Dunlap MD CHEMISTRY ORDERABLES Performing Organization Address City/State/ZIP [place] [address] (ABNORMAL) BLOOD GAS 2 ARTERIAL (10/07/2017 10:27 AM EDT) Analysis Performed At Patho logist Time Signature pH Art 7.33 (L) 7.35 - [facility] 7.45 [facility] pCO2 Art 40 35 - 45 [facility] mmHg [facility] pO2 Art 328 (H) 85 - 104 [facility] HCO3 Art 20.4 20.0 - [facility] 26.0 [facility] mmol/L [facility] BE Art -5.5 (L) -3.0 - 3.0 [facility] mmol/L [facility] Hgb Blood Gas 15.0 13.7 - [facility] 16.5 gm/dL [facility] O2HB Art 98.3 (H) 94.0 - [facility] 97.0 % [facility] COHB Art 0.7 % [facility] Comment: Nonsmokers: 0.5-1.5% COHB Smokers: Variable, but usually less than 10% Toxic: 20-30% COHB Lethal: Greater than 60% COHB METHB Art 0.3 <=1.5 % [facility] Na Whole Blood 137 135 - 145 mmol/L [facility] K Whole Blood 4.3 3.5 - 5.0 mmol/L [facility] Comment: Please note: Patients with WBC >100,000 may have falsely elevated Potassium levels. Contact the Clinical Chemistry L aboratory if there are any questions. ICa Whole Blood 1.09 (L) 1.15 - 1.33 mmol/L [facility] Comment: Note: ??Total bilirubin higher than 20 m g/dL may lead to falsely low ionized calcium. CL Whole Blood 108 (H) 98 - 107 mmol/L [facility] Gluc Whole Bld 202 (H) 65 - 199 mg/dL [facility] Comment: Diabetes: >=200 mg/dL plus symp toms. Lactate WB 1.8 0.5 - 2.2 mmol/L [facility] Specimen Anatomical Collection Method Collection Time Receive d Time (Source) Location / / Volume Laterality Blood specimen 10/07/2017 10:27 8 (specimen) AM EDT 10:27 AM EDT Juan Alberto Dunlap MD CHEMISTRY ORDERABLES Performing Organization Address City/State/[place] [address] Prepare Coag Factors (Non-Hemophilia) (10/07/2017 10:20 AM EDT) P athologist Signature Dispensed? Yes [facility] Specimen Anatomical Collection Method Collection Time Receive d Time (Source) Location / / Volume Laterality Blood specimen 10/07/2017 10:20 8 (specimen) AM EDT 10:20 AM EDT Juan Alberto Dunlap MD BLOOD BANK ORDERABLES Performing Organization Address City/[facility]/[place] [address] (ABNORMAL) BLOOD GAS 2 ARTERIAL (10/07/2017 8:56 AM EDT) Analysis Performed At Patho logist Time Signature pH Art 7.34 (L) 7.35 - [facility] 7.45 [facility] pCO2 Art 45 35 - 45 [facility] pO2 Art 507 (H) 85 - 104 [facility] HCO3 Art 24.1 20.0 - [facility] 26.0 [facility] mmol/L [facility] BE Art -1.7 -3.0 - 3.0 [facility] mmol/L [facility] Hgb Blood Gas 14.5 13.7 - [facility] 16.5 gm/dL [facility] O2HB Art 98.5 (H) 94.0 - [facility] 97.0 % [facility] COHB Art 0.7 % [facility] Comment: Nonsmokers: 0.5-1.5% COHB Smokers: Variable, but usually less than 10% Toxic: 20-30% COHB Lethal: Greater than 60% COHB METHB Art 0.3 <=1.5 % [facility] Na Whole Blood 138 135 - 145 mmol/L [facility] K Whole Blood 4.2 3.5 - 5.0 mmol/L [facility] Comment: Please note: Patients with WBC >100,000 may have falsely elevated Potassium levels. Contact the Clinical Chemistry L aboratory if there are any questions. ICa Whole Blood 1.11 (L) 1.15 - 1.33 mmol/L [facility] Comment: Note: ??Total bilirubin higher than 20 m g/dL may lead to falsely low ionized calcium. CL Whole Blood 108 (H) 98 - 107 mmol/L [facility] Gluc Whole Bld 112 65 - 199 mg/dL [facility] Comment: Diabetes: >=200 mg/dL plus symp toms. Lactate WB 1.3 0.5 - 2.2 mmol/L [facility] Specimen Anatomical Collection Method Collection Time Receive d Time (Source) Location / / Volume Laterality Blood specimen 10/07/2017 8:56 AM 018 8:56 (specimen) EDT AM EDT Juan Alberto Dunlap MD CHEMISTRY ORDERABLES Performing Organization Address City/State/ZIP Code Phon e Number [address] POCT Glucose (10/07/2017 7:14 AM EDT) athologist Signature POC Glucose 112 65 - [address] [facility] mg/dL [facility] Comment: Supplemental ranges: <140 mg/dL before meals <180 mg/dL all other times of the day Specimen Anatomical Collection Method Collection Time Receive d Time (Source) Location / / Volume Laterality Blood specimen 10/07/2017 7:14 AM 018 7:14 (specimen) EDT AM EDT Juan Alberto Dunlap MD POINT OF CARE TEST ORDERABLE S Performing Organization Address City/[facility]/ZIP Code Phon e Number [address] Prepare RBC (10/07/2017 6:30 AM EDT) athologist Signature Dispensed? Yes [facility] Specimen Anatomical Collection Method Collection Time Receive d Time (Source) Location / / Volume Laterality Blood specimen 10/07/2017 6:30 AM 018 6:29 (specimen) EDT AM EDT Resulting Agency Comment Spec In Lab Juan Alberto Dunlap MD BLOOD BANK ORDERABLES Performing Organization Address City/State/[place] [address] documented in this encounter Visit Diagnoses Diagnosis S/P MVR (mitral valve repair) Other postprocedural status S/P CABG x 2 Postsurgical aortocoronary bypass status Paroxysmal atrial fibrillation Atrial fibrillation CAD (coronary artery disease) Coronary atherosclerosis of unspecified type of vessel, [place] or graft S/P MVR (mitral valve repair) Other postprocedural status S/P CABG x 2 Postsurgical aortocoronary bypass status S/P MVR (mitral valve repair) Other postprocedural status S/P CABG x 2 Postsurgical aortocoronary bypass status documented in this encounter Administered Medications Inactive Administered Medications - up to 3 most recent administrations Medication Order MAR Action Action Date Dose Rate Site acetaminophen (OFIRMEV) Given 10/08/2017 12:16 PM 1,000 mg 400 mL/hr injection 1,000 mg EDT 1,000 mg, Intravenous, at 400 mL/hr, EVERY 6 HOURS SCHEDULED, 4 doses, First dose on Tue10/07/17 at 1600, Last dose on Tue10/08/17 at 1200, Maximum dose of acetaminophen is 4000 mg from all sources in 24 hours., Routine Given 10/08/2017 5:41 AM EDT 1,000 mg 400 mL/hr Given 10/07/2017 11:27 PM EDT 1,000 mg 400 mL/hr acetaminophen (TYLENOL) tablet 1,000 mg Given 10/17/2017 12:50 AM EDT 1,000 mg 1,000 mg, Oral, EVERY 6 HOURS SCHEDULED, First dose on Tue10/08/17 at 1800, Until Discontinued, For pain when taking by mouth , Routine Given 10/15/2017 5:29 AM EDT 1,000 mg Given 10/14/2017 11:21 PM EDT 1,000 mg albuterol 90 mcg/actuation inhaler 2 puf f Given 10/10/2017 9:13 PM EDT 2 puffs 2 puff, Inhalation, 4 TIMES DAILY, First dose on Tue10/07/17 at 1700, Until Discontinued, When EXtubated., Routine Given 10/10/2017 4:54 PM EDT 2 puffs Given 10/10/2017 1:11 PM EDT 2 puffs albuterol 90 mcg/actuation inhaler 6 puf f Given 10/08/2017 4:39 AM EDT 6 puffs 6 puff, Inhalation, EVERY 4 HOURS, First dose on Tue10/07/17 at 1600, Until Discontinued, While INtubated., Routine Given 10/08/2017 12:07 AM EDT 6 puffs Given 10/07/2017 8:46 PM EDT 6 puffs AMIOdarone (CORDARONE) 150 mg Bolus from Bag 10/09/2017 3:45 AM EDT 150 mg 500 mL/hr in 83.3333 mL bolus infusion 150 mg, Intravenous, ONCE, 1 dose, On Tue10/09/17 at 0400, Administer over 10 Minutes, Use in-line filter. Warning Vesicant/Irritant Medication AMIOdarone (CORDARONE) 360 mg in New Bag 10/10/2017 1:37 AM ED T 1 mg/min 33.3 mL/hr dextrose 5% 200 mL infusion 1 mg/min (33.3333 mL/hr, rounded to 33.3 mL/hr), Intravenous, CONTINUOUS, Starting on 10/09/17 at 0400, Until 10/10/17 at 0802, 1mg/min while in afib. Once patient converts to sinus rhythm please decrease rate to 0.5mg/min New Bag 10/09/2017 9:04 PM EDT 1 mg/min 33.3 mL/hr New Bag 10/09/2017 3:39 PM EDT 1 mg/min 33.3 mL/hr AMIOdarone (CORDARONE) 360 mg Restarted 10/12/2017 9:40 PM EDT 1 mg/min 33.3 mL/hr in dextrose 5% 200 mL infusion 1 mg/min (33.3333 mL/hr, rounded to 33.3 mL/hr), Intravenous, CONTINUOUS, Starting on Tu10/11/17 at 1000, Until [place] 10/13/17 at 0657, 1mg/min for 24 hours. Then transition to 0.5 mg/min until discontinued. Use in-line filter. Rate/Dose Change 10/12/2017 9:57 AM EDT 0.5 mg/min 16.7 mL/hr New Bag 10/12/2017 9:05 AM EDT 1 mg/min 33.3 mL/hr AMIOdarone (CORDARONE) 360 mg/200 mL (1. 8 mg/mL) infusion 1 dose, Starting on Tue10/09/17 at 0337, Until 09/21 at 0346, KELLY NORRIS: cabinet override AMIOdarone (CORDARONE) bolus from Bolus from Bag 10/09/2017 6:25 AM E DT 150 mg bag 150 mg 150 mg, Intravenous, ONCE, 1 dose, On 10/09/17 at 0630, Warning Vesicant/Irritant Medication , Routine AMIOdarone (CORDARONE) bolus from Bolus from Bag 10/09/2017 9:06 PM E DT 150 mg bag 150 mg 150 mg, Intravenous, ONCE, 1 dose, On 10/09/17 at 2030, Warning Vesicant/Irritant Medication , Routine AMIOdarone (CORDARONE; PACERONE) tablet 200 Given 10/09/2017 9:01 PM EDT 200 mg mg 200 mg, Oral, 2 TIMES DAILY, First dose on Tue10/09/17 at 0945, Until Discontinued, Routine Given 10/09/2017 9:58 AM EDT 200 mg AMIOdarone (CORDARONE; PACERONE) tablet 200 Given 10/13/2017 9:11 AM EDT 200 mg mg 200 mg, Oral, DAILY, First dose (after last modification) on Tue10/10/17 at 0900, Until Discontinued, Routine Given 10/12/2017 9:10 AM EDT 200 mg Given 10/11/2017 8:49 AM EDT 200 mg AMIOdarone (CORDARONE; PACERONE) tablet 200 Given 09/22 10:47 PM EDT 200 mg mg 200 mg, Oral, ONCE, 1 dose, On Tue10/10/17 at 2300, Routine AMIOdarone (CORDARONE; PACERONE) tablet 200 Given 10/16/2017 9:17 PM EDT 200 mg mg 200 mg, Oral, 2 TIMES DAILY, First dose (after last modification) on Tue10/13/17 at 2100, Until Discontinued, Routine Given 10/16/2017 9:17 AM EDT 200 mg Given 10/15/2017 9:21 PM EDT 200 mg AMIOdarone (CORDARONE; PACERONE) tablet 200 Given 10/18/2017 8:50 AM EDT 200 mg mg 200 mg, Oral, DAILY, First dose (after last modification) on Tue10/17/17 at 0815, Until Discontinued, Routine Given 10/17/2017 8:05 AM EDT 200 mg aspirin chewable tablet 81 mg Given 10/18/2017 8:50 AM EDT 81 mg 81 mg, Oral, DAILY, First dose on Tue10/07/17 at 1515, Until Discontinued, Start on Post-Op Day 0, Routine Given 10/17/2017 8:05 AM EDT 81 mg Given 10/16/2017 9:17 AM EDT 81 mg atorvastatin (LIPITOR) tablet 40 mg Given 10/17/2017 4:40 PM EDT 40 mg 40 mg, Oral, EVERY EVENING, First dose on Tue10/08/17 at 1700, Until Discontinued, Routine Given 10/16/2017 4:28 PM EDT 40 mg Given 10/15/2017 5:04 PM EDT 40 mg bisacodyl (DULCOLAX) suppository 10 mg Given 10/10/2017 1:13 PM EDT 10 mg 10 mg, Rectal, DAILY, First dose (after last modification) on 10/10/17 at 1245, Until Discontinued, Starting post-op day 3., Routine chlorhexidine (PERIDEX) 0.12 % oral solution Given 8:33 AM EDT 15 mLs 15 mL 15 mL, Oral, EVERY 12 HOURS SCHEDULED (2 times per day), First dose on Tue10/07/17 at 2100, Until Discontinued, [place] teeth, Routine Given 10/07/2017 8:29 PM EDT 15 mLs dilTIAZem (CARDIZEM) 125 mg in New Bag 10/15/2017 6:05 PM EDT 5 mg /hr 5 mL/hr sodium chloride 0.9% 125 mL infusion 5 mg/hr (5 mL/hr), Intravenous, CONTINUOUS, Starting on Tue10/15/17 at 1745, Until Tue10/18/17 at 1137, Infusion: ? ? Titrate to maintain heart rate of <100 ; Call MD for heart rate less than 60. Initiate infusion at 5 mg/hr and increase every 30 minutes by 5 mg/hr to a maximum dose of 15 mg/hr. EPINEPHrine 2 mg in Rate/Dose Verify 10/08/2017 9:00 AM 1 mcg/min 7. 5 mL/hr dextrose 5% 250 mL EDT infusion 0-10 mcg/min (0-75 mL/hr), Intravenous, CONTINUOUS PRN, Starting on Tue10/07/17 at 1606, Until Tue10/09/17 at 1105, see admin instructions, Titrate to keep cardiac index greater than 2.0 and mean arterial pressure (MAP) greater than 70-80 mmHg. Start at 1 mcg/min, increase by 1 mcg/min every 5 minutes. Dose not to exceed 10 mcg/min. Rate/Dose Change 10/08/2017 8:25 AM EDT 1 mcg/min 7.5 mL/hr Rate/Dose Verify 10/08/2017 8:00 AM EDT 2 mcg/min 15 mL/hr fentaNYL 50 mcg/mL Rate/Dose Verify 10/08/2017 8:00 AM 25 mcg/hr 0.5 mL/hr infusion EDT 0-100 mcg/hr (0-2 mL/hr), Intravenous, CONTINUOUS, Starting on Tue10/07/17 at 1515, Until Tue10/09/17 at 1105, Titrate to patient comfort, pain scale 1-3. Start at 25 mcg/hr, adjust by 25 mcg/hr every 15 minutes. Dose not to exceed 100 mcg/hour. Rate/Dose Verify 10/08/2017 6:00 AM EDT 25 mcg/hr 0.5 mL/hr Rate/Dose Verify 10/08/2017 4:00 AM EDT 25 mcg/hr 0.5 mL/hr fentaNYL bolus from bag 25 mcg Bolus from Bag 10/08/2017 4:16 AM EDT 25 mcg 25 mcg, Intravenous, EVERY 10 MIN PRN, Starting on Tue10/07/17 at 1444, Until Tue10/09/17 at 1105, Pain, For breakthrough pain (pain scale greater than 3), while intubated, Maximum dose 300 mcg over one hour., Routine Bolus from Bag 10/08/2017 3:10 AM EDT 25 mcg furosemide (LASIX) tablet 20 mg Given 10/17/2017 4:40 PM EDT 20 mg 20 mg, Oral, 2 TIMES DAILY, First dose on Tue10/08/17 at 1700, Until Discontinued, Routine Given 10/17/2017 8:05 AM EDT 20 mg Given 10/16/2017 4:28 PM EDT 20 mg furosemide (LASIX) tablet 20 mg Given 10/18/2017 8:50 AM EDT 20 mg 20 mg, Oral, DAILY, First dose (after last modification) on Tue10/18/17 at 0900, Until Discontinued, Routine hyaluronidase (ovine) (VITRASE) Given 10/12/2017 8:30 PM EDT 1.2 mLs Left Arm injection 1-10 mL 1-10 mL, Subcutaneous, ONCE, 1 dose, On Tue10/12/17 at 2030, Hyaluronidase is supplied in a 1-mL vial at a concentration of 200 units/mL. Dilute with 9 mL of normal saline. This yields the desired concentration of 20 units/mL. Draw up 1 mL increments of the diluted solution into a 1-mL syringe with a 26-g needle. Instill 0.2 -mL aliquots of the solution at least every 2 - 3 centimeters or five evenly spaced aliquots subcutaneously around the periphery of the infiltrated area. Use a new 26-gauge needle for each injection. This is best done within one hour of the extravasation. Discard the remaining solution. , STAT insulin regular human Rate/Dose Verify 10/08/2017 2:00 PM 0.5 Units /hr 0.5 mL/hr (HumuLIN;NovoLIN) EDT 1unit/mL in sodium chloride 0.9% infusion 0.5-16 Units/hr (0.5-16 mL/hr), Intravenous, CHANGE BAG EVERY EVENING, First dose on Tue10/07/17 at 1515, Until Discontinued, Type 2 diabetes. Current blood glucose 140 - 179 Titration- aim for target range of 140 - 180 mg/dL. Check BG every hour unless otherwise indicated. [[ No initial bolus. Begin continuous infusion at 2 units/hour. ]] If BG at the time the infusion is started outside of the CURRENT BLOOD GLUCOSE range above, contact MD for new starting rate/bolus order. When infusion is paused, turn it back on as soon as possible per protocol. If BG at the time the infusion is started is outside of the CURRENT BLOOD GLUCOSE range above, contact provider for new starting rate/bolus order. Current BG less than 80 - Stop insulin. If BG less than 70, treat per hypoglycemia protocol. Re-check BG in 30 minutes and as soon as BG is greater than 80, restart with rate 50% of previous rate. If infusion stopped after previous rate had been 0.5 unit/hour, recheck every hour and when BG greater than 100 and higher than last test restart at 0.5 unit/hour. IF INFUSION IS PAUSED, TURN IT BACK ON SOON POSSIBLE, PER PROTOCOL. Current BG 80 - 139 - If BG dropped 10 mg/dL or more since last test, decrease rate by 50% and re-check in 30 minutes. Otherwise, decrease rate by 0.5 units/hour. Current BG 140 - 180 - If BG dropped 50 mg/dL or more since last test, decrease rate by 1 unit/hour. Otherwise, maintain same rate. Current BG 181 - 220 - If BG is lower than last test, maintain same rate. Otherwise, increase rate by 0.5 units/hour. Current BG 221 - 250 - If BG dropped 30 mg/dL or more since last test, maintain same rate. Otherwise, increase rate by 1 unit/hour. Current BG greater than 250 - Increase rate by 1 unit/hour AND bolus with Regular insulin IV as per IV Bolus Scale. Re-check BG in 30 minutes. THE FIRST DOSE OF SC INSULIN OUGHT TO BE ADMINISTERED BEFORE DISCONTINUING THE INFUSION. AN OVERLAP OF 2-3 HOURS IS RECOMMENDED. Continue to monitor the BG hourly., Routine Rate/Dose Verify 10/08/2017 12:00 PM EDT 0.5 Units/hr 0.5 mL/hr Rate/Dose Verify 10/08/2017 10:00 AM EDT 0.5 Units/hr 0.5 mL/hr ipratropium-albuterol (DUONEB) 0.5 mg-3 mg(2.5 Given 0 10/16/2017 4:24 AM EDT 3 mLs mg base)/3 mL nebulizer solution 3 mL 3 mL, Nebulization, EVERY 6 HOURS, First dose on Tue10/11/17 at 0900, Until Discontinued, Routine Given 10/15/2017 9:21 PM EDT 3 mLs Given 10/15/2017 2:45 PM EDT 3 mLs ipratropium-albuterol (DUONEB) 0.5 mg-3 mg(2.5 mg base)/3 mL nebulizer solution 3 mL 3 mL, Nebulization, EVERY 4 HOURS PRN, S tarting on Tue10/16/17 at 0915, Until Tue10/18/17 at 1137, Wheezing, Routine lactated Ringers infusion 1,000 mL New Bag 10/07/2017 8:30 AM EDT 1,000 mL, at 100 mL/hr, Intravenous, CONTINUOUS, Starting on Tue10/07/17 at 0745, Until Tue10/07/17 at 1445, Day of Surgery (Day of Procedure) New Bag 10/07/2017 7:30 AM EDT 1,000 mLs 100 mL/hr lidocaine (XYLOCAINE) 10 mg/mL (1 %) injection Given 0 10/07/2017 7:30 AM EDT 3 mg 3 mg 3 mg (0.3 mL), Subcutaneous, ONCE PRN, 1 dose, Starting on Tue10/07/17 at 0719, Until Tue10/07/17 at 0730, for discomfort with PIV insertion, Day of Surgery (Day of Procedure), Routine lidocaine (XYLOCAINE) 10 mg/mL (1 %) inj ection 3 mg 3 mg (0.3 mL), Subcutaneous, ONCE PRN, 1 dose, Startin g on Tue10/09/17 at 1343, Until Tue10/18/17 at 1137, for discomfort with PIV ins ertion, Routine LORazepam (ATIVAN) tablet 0.25 mg Given 10/08/2017 8:52 AM EDT 0.25 mg 0.25 mg, Oral, ONCE, 1 dose, On 10/08/17 at 0900, Routine magnesium hydroxide (MILK OF MAGNESIA) oral Given 10/14/2017 4:39 PM EDT 10 mLs suspension 10 mL 10 mL, Oral, DAILY, First dose on Tue10/09/17 at 0900, Until Discontinued, Post-op day 2. Do not use with renal insufficiency., Routine Given 10/13/2017 9:10 AM EDT 10 mLs Given 10/12/2017 9:12 AM EDT 10 mLs magnesium sulfate 1g in dextrose 5% New Bag 10/09/2017 8:36 AM EDT 1 g 100 mL/hr 100mL 1 g, Intravenous, EVERY HOUR, 2 doses, First dose on Tue10/09/17 at 0700, Last dose on Tue10/09/17 at 0800, Administer over 60 Minutes, Use TWO magnesium sulfate 1g/100 mL infusion bags to administer total of 2 grams magnesium sulfate New Bag 10/09/2017 6:46 AM EDT 1 g 100 mL/hr melatonin tablet 3 mg Given 10/17/2017 9:19 PM EDT 3 mg 3 mg, Oral, NIGHTLY, First dose on Tue10/12/17 at 2100, Until Discontinued, Routine Given 10/16/2017 9:17 PM EDT 3 mg Given 10/15/2017 9:21 PM EDT 3 mg meTOPROLOL (LOPRESSOR) injection 2.5 mg Given 10/14/2017 4:32 AM EDT 2.5 mg 2.5 mg, Intravenous, EVERY 5 MIN PRN, 2 doses, Starting on Tue10/14/17 at 0329, Until Tue10/14/17 at 0432, Elevated Heart Rate, for HR >130, please check SBP, if SBP<100 hold and page [phone] Given 10/14/2017 3:46 AM EDT 2.5 mg meTOPROLOL (LOPRESSOR) tablet 12.5 mg Given 10/13/2017 9:10 PM EDT 12.5 mg 12.5 mg, Oral, EVERY 12 HOURS SCHEDULED (2 times per day), First dose on Tue10/08/17 at 2100, Until Discontinued, Routine Given 10/13/2017 9:11 AM EDT 12.5 mg Given 10/12/2017 9:18 PM EDT 12.5 mg metoprolol tartrate (LOPRESSOR) tablet 2 5 mg Given 10/14/2017 9:22 AM EDT 25 mg 25 mg, Oral, EVERY 12 HOURS SCHEDULED (2 times per day), First dose (after last modification) on Tue10/14/17 at 0900, Until Discontinued, Routine metoprolol tartrate (LOPRESSOR) tablet 2 5 mg Given 10/15/2017 5:29 AM EDT 25 mg 25 mg, Oral, EVERY 8 HOURS SCHEDULED, First dose (after last modification) on Tue10/14/17 at 1645, Until Discontinued, Routine Given 10/14/2017 9:05 PM EDT 25 mg Given 10/14/2017 4:37 PM EDT 25 mg metoprolol tartrate (LOPRESSOR) tablet 2 5 mg Given 10/15/2017 11:00 AM EDT 25 mg 25 mg, Oral, ONCE, 1 dose, On [facility] 10/15/17 at 1000, Routine metoprolol tartrate (LOPRESSOR) tablet 5 0 mg Given 10/18/2017 5:16 AM EDT 50 mg 50 mg, Oral, EVERY 8 HOURS SCHEDULED, First dose (after last modification) on Tue10/15/17 at 1400, Until Discontinued, Hold for HR<50, SBP<90., Routine Given 10/17/2017 9:18 PM EDT 50 mg Given 10/17/2017 2:48 PM EDT 50 mg NORepinephrine 16 mcg/mL Rate/Dose Verify 10/08/2017 2:00 3.013 mcg /min 11.3 mL/hr (standard ADULT and Pedi AM EDT greater than 20 kg) infusion 0-30 mcg/min (0-112.5 mL/hr), Intravenous, CONTINUOUS, Starting on Tue10/07/17 at 1515, Until Tue10/09/17 at 1105, Titrate to keep systolic blood pressure greater than 90 mmHg. Start at 2 mcg/minute and adjust by 2 mcg/min every 3 minutes. Dose not to exceed 30 mcg/minute. Begin if phenyleprine and/or vasopressin ineffective.Call pager # [phone] if initiated., Routine Rate/Dose Change 10/08/2017 1:55 AM EDT 2 mcg/min 7.5 mL/hr Rate/Dose Change 10/08/2017 12:12 AM EDT 3 mcg/min 11.3 mL/hr ondansetron (ZOFRAN) injection 4 mg Given 10/10/2017 10:17 AM EDT 4 mg 4 mg, Intravenous, EVERY 8 HOURS PRN, Starting on Tue10/07/17 at 1444, Until Tue10/18/17 at 1137, Nausea Given 10/09/2017 7:53 PM EDT 4 mg Given 10/08/2017 10:24 AM EDT 4 mg oxyCODONE (ROXICODONE) immediate release tablet Given 10/12/2017 1:51 AM EDT 5 mg 5-10 mg 5-10 mg, Oral, EVERY 4 HOURS PRN, Starting on Tue10/07/17 at 1444, Until Tue10/18/17 at 1137, Pain, - When tolerating oral medications. - Initial dose 5 mg. - If pain control not adequate in 60 minutes, give additional 5 mg., Routine Given 10/11/2017 8:49 AM EDT 5 mg Given 10/10/2017 10:47 PM EDT 5 mg pantoprazole (PROTONIX) injection 40 mg Given 10/08/2017 8:52 AM EDT 40 mg 40 mg, Intravenous, DAILY, First dose on Tue10/07/17 at 1515, Until Discontinued, Reconstitute with 10 mL of normal saline to a concentration of 4 mg/mL and infuse slowly over 2 minutes. , Routine Given 10/07/2017 4:16 PM EDT 40 mg pantoprazole (PROTONIX) tablet 40 mg Given 10/18/2017 8:50 AM EDT 40 mg 40 mg, Oral, DAILY, First dose on Tue10/07/17 at 1515, Until Discontinued, DO NOT CRUSH OR OPEN If unable to take PO, may give IV, Routine Given 10/17/2017 8:05 AM EDT 40 mg Given 10/16/2017 9:17 AM EDT 40 mg potassium chloride (K-DUR/KLOR-CON) extended Given 6:55 AM EDT 10 mEq release tablet 10 mEq 10 mEq, Oral, ONCE, 1 dose, On Tue10/12/17 at 0700, Routine potassium chloride (K-DUR/KLOR-CON) extended Given 1:12 PM EDT 20 mEq release tablet 20 mEq 20 mEq, Oral, ONCE, 1 dose, On 10/10/17 at 1245, Routine potassium chloride (K-DUR/KLOR-CON) extended Given 9:24 AM EDT 30 mEq release tablet 30 mEq 30 mEq, Oral, ONCE, 1 dose, On [place] 10/13/17 at 0930, Routine potassium chloride 20 mEq in 100 mL New Bag 10/07/2017 9:23 PM EDT 20 mEq 100 mL/hr 20 mEq, Intravenous, EVERY 1 HOUR PRN, Starting on Tue10/07/17 at 1444, Until Tue10/09/17 at 1105, Administer over 60 Minutes, hypokalemia, Administer 2 doses for a serum potassium (mMol/L) of 3.3 - 3.8 See instructions for Potassium Protocol in online policies. New Bag 10/07/2017 8:28 PM EDT 20 mEq 100 mL/hr New Bag 10/07/2017 4:15 PM EDT 20 mEq 100 mL/hr propofol (DIPRIVAN) Rate/Dose Change 10/08/2017 6:01 AM 10 mcg/kg/min 7.7 mL/hr infusion EDT 0-50 mcg/kg/min ? 128.6 kg (0-38.58 mL/hr, rounded to 0-38.6 mL/hr), Intravenous, CONTINUOUS, Starting on Tue10/07/17 at 1515, Until Tue10/09/17 at 1105, Titrate to sedation level of RASS Goal (-) 1. Start at 10 mcg/kg/min, adjust rate by 5 mcg/kg/min every 3 minutes. Dose not to exceed 50 mcg/kg/minute. Discontinue upon extubation., Routine Rate/Dose Verify 10/08/2017 6:00 AM EDT 40.047 mcg/kg/min 30.9 mL/h r Rate/Dose Change 10/08/2017 5:30 AM EDT 20 mcg/kg/min 15.4 mL/hr senna-docusate (PERICOLACE) 8.6-50 mg per Given 2017 8:35 PM EDT 2 tablets tablet 2 tablet 2 tablet, Oral, DAILY, First dose on 10/08/17 at 2100, Until Discontinued, Post-op day 1, Routine sodium chloride 0.9 % flush 5 mL Given 10/17/2017 9:19 PM EDT 5 mLs 5 mL, Intravenous, EVERY 8 HOURS, First dose on Tue10/09/17 at 1130, Until Discontinued, Routine Given 10/16/2017 9:17 PM EDT 5 mLs Given 10/15/2017 8:00 PM EDT 5 mLs sodium chloride 0.9 % flush 5 mL Given 10/17/2017 2:47 PM EDT 5 mLs 5 mL, Intravenous, EVERY 12 HOURS, First dose on Tue10/09/17 at 1400, Until Discontinued, Routine Given 10/14/2017 2:17 PM EDT 5 mLs Given 10/13/2017 2:00 PM EDT 5 mLs sodium chloride 0.9 % flush 5-20 mL 5-20 mL, Intravenous, EVERY 1 MIN PRN, S tarting on Tue10/09/17 at 1343, Until Tue10/18/17 at 1137, flush, Flush pertains t o all indwelling lines. Flush per protocol found in the job aid using the link prov ided on this medication record., Routine sodium chloride 0.9% Rate/Dose Verify 10/08/2017 6:00 AM 10 mL/hr 1 0 mL/hr infusion EDT 0-500 mL/hr, Intravenous, CONTINUOUS, Starting on Tue10/07/17 at 1515, Until Tue10/09/17 at 1105, Bolus 250 mL every 5 minutes as needed for volume replacement to maintain cardiac index greater than or equal to 2.0 L/min/M2. Maximum volume 2 L. Call distribution warehouse manager for additional fluid orders: pager #[phone]. Rate/Dose Verify 10/08/2017 4:00 AM EDT 10 mL/hr 10 mL/hr Rate/Dose Verify 10/08/2017 2:00 AM EDT 10 mL/hr 10 mL/hr sodium chloride 0.9% Rate/Dose Verify 10/08/2017 12:00 PM 30 mL/hr 30 mL/hr infusion EDT 10-30 mL/hr, Intravenous, DAILY PRN, Starting on Tue10/07/17 at 1444, Until Tue10/09/17 at 1105, Side port TKO rate, per [facility] nursing protocol. Rate/Dose Verify 10/08/2017 10:00 AM EDT 30 mL/hr 30 mL/hr Rate/Dose Verify 10/08/2017 9:00 AM EDT 30 mL/hr 30 mL/hr sodium chloride 0.9% Rate/Dose Verify 10/09/2017 10:00 AM 20 mL/hr 20 mL/hr infusion EDT 10-30 mL/hr, Intravenous, DAILY PRN, Starting on Tue10/07/17 at 1444, Until Tue10/09/17 at 1105, Side port TKO rate, per [facility] nrusing protocol. Rate/Dose Verify 10/09/2017 8:00 AM EDT 20 mL/hr 20 mL/hr Rate/Dose Verify 10/09/2017 6:00 AM EDT 20 mL/hr 20 mL/hr sodium chloride tablet 1 g Given 10/10/2017 9:14 PM EDT 1 g 1 g, Oral, 3 TIMES DAILY, 2 doses, First dose on Tue10/10/17 at 1500, Last dose on Tue10/10/17 at 2100, Routine Given 10/10/2017 5:30 PM EDT 1 g tamsulosin (FLOMAX) ER capsule 0.4 mg Given 10/18/2017 8:50 AM EDT 0.4 mg 0.4 mg, Oral, DAILY, First dose on Tue10/08/17 at 0900, Until Discontinued, DO NOT CRUSH OR OPEN, Routine Given 10/17/2017 8:05 AM EDT 0.4 mg Given 10/16/2017 9:17 AM EDT 0.4 mg vasopressin (VASOSTRICT) Rate/Dose Change 10/08/2017 4:22 0.02 Unit s/min 2.4 mL/hr 50 Units in sodium AM EDT chloride 0.9% 100 mL infusion 0.04-0.1 Units/min (4.8-12 mL/hr), Intravenous, CONTINUOUS, Starting on Tue10/07/17 at 1515, Until Tue10/09/17 at 1105, Titrate to keep systolic blood pressure greater than 90 mmHg. start at 0.04 units/min. and adjust rate by 0.005 units/min every 10 minutes. Dose not to exceed 0.4 units/minute. Begin if phenylephrine ineffective or continue if drip running on admission to unit. Rate/Dose Verify 10/08/2017 4:00 AM EDT 0.04 Units/min 4.8 mL/hr Rate/Dose Verify 10/08/2017 2:00 AM EDT 0.04 Units/min 4.8 mL/hr warfarin (COUMADIN) daily order reminder Oral, EVERY 24 HOURS, First dose on Tue10/09/17 at 1400, Until Discontinued, If the daily warfarin order has not been placed , contact the Provider to confirm that the order will be written, the dose is held or discontinue d. warfarin (COUMADIN) tablet 1 mg Given 10/11/2017 5:25 PM EDT 1 mg 1 mg, Oral, ONCE, 1 dose, On Tue10/11/17 at 1700, Routine warfarin (COUMADIN) tablet 2 mg Given 10/15/2017 5:04 PM EDT 2 mg 2 mg, Oral, ONCE, 1 dose, On 10/15/17 at 1700, Routine warfarin (COUMADIN) tablet 2 mg Given 10/17/2017 4:41 PM EDT 2 mg 2 mg, Oral, ONCE, 1 dose, On Tue10/17/17 at 1700, Routine warfarin (COUMADIN) tablet 2 mg 2 mg, Oral, ONCE, 1 dose, On Tue10/18/17 at 1700, Rout ine warfarin (COUMADIN) tablet 2.5 mg Given 10/13/2017 6:18 PM EDT 2.5 mg 2.5 mg, Oral, ONCE, 1 dose, On Nerissa 10/13/17 at 1700, Routine warfarin (COUMADIN) tablet 2.5 mg Given 10/14/2017 4:37 PM EDT 2.5 mg 2.5 mg, Oral, ONCE, 1 dose, On Tue10/14/17 at 1700, Routine warfarin (COUMADIN) tablet 2.5 mg Given 10/16/2017 4:28 PM EDT 2.5 mg 2.5 mg, Oral, ONCE, 1 dose, On 10/16/17 at 1700, Routine warfarin (COUMADIN) tablet 5 mg Given 10/08/2017 4:20 PM EDT 5 mg 5 mg, Oral, ONCE, 1 dose, On 10/08/17 at 1700, Routine warfarin (COUMADIN) tablet 5 mg Given 10/09/2017 4:38 PM EDT 5 mg 5 mg, Oral, ONCE, 1 dose, On 10/09/17 at 1700, Routine warfarin (COUMADIN) tablet 5 mg Given 10/10/2017 4:54 PM EDT 5 mg 5 mg, Oral, ONCE, 1 dose, On 10/10/17 at 1700, Routine documented in this encounter Active and Recently Administered Medications Times are shown in EDT. Scheduled Medication Order 10/16/2017 10/17/2017 10/18/2017 acetaminophen (TYLENOL) tablet 1,000 mg 0010 (Not Give n - Provider: Isela Vann RN - Reason: Patient/family refused)0600 (Not Given - Provider: Isela Vann RN - Reason: Patient/family refused)1200 (Not Given - Provider: Jeremias Rubio RN - Reason: Patient/family refused) 0050 (Given - Provider: Isela Vann RN)0507 (Not Given - Provider: Isela Vann RN - Reason: Patient/family refused)1200 (Not Given - Provider: Emily Russo RN - Reason: Patient/family refused) 0044 (Not Given - Provider: Isela menchaca RN - Reason: Patient/family refused)0600 (Not Given - Provider: Isela Vann RN - Reason: Patient/family refused) 1,000 mg, Oral, EVERY 6 HOURS SCHEDULED, First dose on 10/08/17 at 1800, Until Discontinued, For pain when taking by mouth , Routine 1800 (Not Given - Provider: Jeremias Rubio RN - Reason: Patient/family refused) 1800 (Not Given - Provider: Emily Russo RN - Reason: Patient/family refused) AMIOdarone (CORDARONE; PACERONE) tablet 200 mg (CANCEL ED) 0917 (Given - Provider: Jeremias Rubio, CORNELIUS)2117 (Given - Provider: Isela Vann RN) 200 mg, Oral, 2 TIMES DAILY, First dose on Nerissa 10/13/17 at 2100, Until Discontinued, Routine AMIOdarone (CORDARONE; PACERONE) tablet 200 mg 0805 (Given - Provider: Emily Russo, CORNELIUS) 0850 (Given - Provider: Emily rao RN) 200 mg, Oral, DAILY, First dose on Tue at 0815, Until Discontinued, Routine aspirin chewable tablet 81 mg 0917 (Given - Provider: Jeremias Rubio RN) 0805 (Given - Provider: Emily Russo RN) 0850 (Given - Provider: Emily Russo RN) 81 mg, Oral, DAILY, First dose on Tue at 1515, Until Discontinued, Start on Post-Op Day 0, Routine atorvastatin (LIPITOR) tablet 40 mg 1628 (Given - Prov ider: Jeremias Rubio RN) 1640 (Given - Provider: Emily Russo RN) 40 mg, Oral, EVERY EVENING, First dose o n 10/08/17 at 1700, Until Discontinued, Routine bisacodyl (DULCOLAX) suppository 10 mg 0900 (Hold - Pr ovider: Jeremias Rubio RN - Reason: Patient/family refused) 0900 (Not Given - Provider: Emily Russo RN - Reason: Patient/family refused) 0900 (Not Given - Provider: Emily Russo RN - Reason: Patient/family refused) 10 mg, Rectal, DAILY, First dose on Tue10/10/17 at 1245, Until Discontinued, Starting post-op day 3., Routine furosemide (LASIX) tablet 20 mg (CANCELED) 09 (Given - Provider: Jeremias Rubio RN)1628 (Given - Provider: Jeremias Rubio RN) 0805 (Given - Provider: Emily Russo RN)1640 (Given - Provider: Emily Russo RN) 20 mg, Oral, 2 TIMES DAILY, First dose o n 10/08/17 at 1700, Until Discontinued, Routine furosemide (LASIX) tablet 20 mg 0850 (Given - Provider: Emily Russo RN) 20 mg, Oral, DAILY, First dose on Tue at 0900, Until Discontinued, Routine ipratropium-albuterol (DUONEB) 0.5 mg-3 mg(2.5 mg base)/3 mL nebulizer solution 3 mL (CANCELED) 0424 (Given - Provider: Isela M Vann, RN)0900 (Not Given - Provider: Jeremias Rubio RN - Reason: Medication Discontinued) 3 mL, Nebulization, EVERY 6 HOURS, First dose on Tue10/11/17 at 0900, Until Discontinued, Routine magnesium hydroxide (MILK OF MAGNESIA) oral suspension 10 mL 0900 (Hold - Provider: Jeremias Rubio RN - Reason: Patient/family refused) 0900 (Not Given - Provider: Emily Russo RN - Reason: Patient/family refused) 0900 (Not Given - Provider: Emily Russo RN - Reason: Patient/family refused) 10 mL, Oral, DAILY, First dose on Tue at 0900, Until Discontinued, Post- op day 2. Do not use with renal insufficiency., Routine melatonin tablet 3 mg 2116 (Given - Provider: Isela aaron RN) 2118 (Given - Provider: Isela Vann RN) 3 mg, Oral, NIGHTLY, First dose on Tue at 2100, Until Discontinued, Routine metoprolol tartrate (LOPRESSOR) tablet 50 mg 0514 (Giv en - Provider: Isela Vann RN)1412 (Given - Provider: Jeremias Rubio RN)2116 (Given - Provider: Isela Vann RN) 0653 (Hold - Provider: Isela Vann RN - Reason: Per MD Order - Comment: per JADEN Aguilar HR <60)0804 (Given - Provider: Emily Russo RN)1448 (Given - Provider: Emily Russo RN)211 (Given - Provider: Isela Vann, CORNELIUS) 0516 (Given - Provider: Isela Vann RN) 50 mg, Oral, EVERY 8 HOURS SCHEDULED, Fi rst dose on Tue10/15/17 at 1400, Until Discontinued, Hold for HR<50, SBP<90., Routine pantoprazole (PROTONIX) injection 40 mg(Linked Group 1 ) 916 (See Alternative - Provider: Jeremias Rubio RN) 0805 (See Alternative - Provider: Neri Russo RN) 0850 (See Alternative - Provider: Neri Russo RN) 40 mg, Intravenous, DAILY, First dose on Tue10/07/17 at 1515, Until Discontinued, Reconstitute with 10 mL of normal saline to a concentration of 4 mg/mL and infuse slowly over 2 minutes. , Routine pantoprazole (PROTONIX) tablet 40 mg(Linked Group 1) 0 917 (Given - Provider: Jeremias Rubio RN) 0805 (Given - Provider: Emily Russo RN) 0850 (Given - Provider: Emily Russo RN) 40 mg, Oral, DAILY, First dose on Tue at 1515, Until Discontinued, DO NOT CRUSH OR OPEN If unable to take PO, may give IV, Routine sodium chloride 0.9 % flush 5 mL 0330 (Not Given - Pro vider: Isela Vann RN - Reason: See comment - Comment: duplicate order)1130 (Not Given - Provider: Jeremias Rubio RN - Reason: Contraindicated)2117 (Given - Provider: Isela Vann RN) 0330 (Not Given - Provider: Isela menchaca RN - Reason: See comment - Comment: duplicate order)1130 (Not Given - Provider: Emily Russo RN - Reason: Contraindicated)2119 (Given - Provider: Isela Vann RN) 0330 (Not Given - Provider: Isela menchaca RN - Reason: See comment - Comment: flushed earlier) 5 mL, Intravenous, EVERY 8 HOURS, First dose on 10/09/17 at 1130, Until Discontinued, Routine sodium chloride 0.9 % flush 5 mL 0200 (Not Given - Pro vider: Isela Vann RN - Reason: Contraindicated - Comment: flushed earlier)1400 (Not Given - Provider: Jeremias Rubio RN - Reason: Contraindicated) 0200 (Not Given - Provider: Isela Vann RN - Reason: See comment - Comment: flushed earlier)1447 (Given - Provider: Emily Russo RN) 0200 (Not Given - Provider: Isela Vann RN - Reason: See comment - Comment: flushed earlier) 5 mL, Intravenous, EVERY 12 HOURS, First dose on 10/09/17 at 1400, Until Discontinued, Routine tamsulosin (FLOMAX) ER capsule 0.4 mg 0917 (Given - Pr ovider: Jeremias Rubio RN) 0805 (Given - Provider: Emily Russo, CORNELIUS) 0850 (Given - Provider: Emily Russo, CORNELIUS) 0.4 mg, Oral, DAILY, First dose on Sat at 0900, Until Discontinued, DO NOT CRUSH OR OPEN, Routine warfarin (COUMADIN) daily order reminder 1400 (Dose co nfirmed - Provider: Jeremias Rubio RN) 1400 (Dose confirmed - Provider: Emily Russo RN) Oral, EVERY 24 HOURS, First dose on 10/09/17 at 1400, If the daily warfarin order has not been placed, contact the Provider to confirm that the order will be written, the dose is held or discontinued. warfarin (COUMADIN) tablet 2 mg (COMPLETED) 1641 (Given - Provider: Emily Russo RN) 2 mg, Oral, ONCE, 1 dose, Tue10/17/17 at 1700, Routine warfarin (COUMADIN) tablet 2 mg 2 mg, Oral, ONCE, 1 dose, Tue10/18/17 at 1700, Routine warfarin (COUMADIN) tablet 2.5 mg (COMPLETED) 1628 (Gi stefan - Provider: Jeremias Rubio, CORNELIUS) 2.5 mg, Oral, ONCE, 1 dose, [place] 10/16/17 at 1700, Routine Continuous Medication Order 10/16/2017 10/17/2017 10/18/2017 dilTIAZem (CARDIZEM) 125 mg in sodium chloride 0.9% 125 mL infus ion 5 mg/hr (5 mL/hr), Intravenous, CONTINUO US, Starting 10/15/17 at 1745, Until Tue10/18/17 at 1137, Infusion: ? ? Titrate to maintain heart rate of <100 ; Call MD for heart rate less than 60. Initia te infusion at 5 mg/hr and increase ever y 30 minutes by 5 mg/hr to a maximum dose of 15 mg/hr. PRN Medication Order 10/16/2017 10/17/2017 10/18/2017 ipratropium-albuterol (DUONEB) 0.5 mg-3 mg(2.5 mg base)/3 mL nebulizer solution 3 mL 3 mL, Nebulization, EVERY 4 HOURS PRN, S tarting [place] 10/16/17 at 0915, Until Tue10/18/17 at 1137, Wheezing, Routine lidocaine (XYLOCAINE) 10 mg/mL (1 %) injection 3 mg 3 mg (0.3 mL), Subcutaneous, ONCE PRN, 1 dose, Starting 10/09/17 at 1343, Until Tue10/18/17 at 1137, for discomfort with PIV insertion, Routine ondansetron (ZOFRAN) injection 4 mg 4 mg, Intravenous, EVERY 8 HOURS PRN, St arting Tue10/07/17 at 1444, Until Tue10/18/17 at 1137, Nausea oxyCODONE (ROXICODONE) immediate release tablet 5-10 mg 5-10 mg, Oral, EVERY 4 HOURS PRN, Starti ng Tue10/07/17 at 1444, Until Tue10/18/17 at 1137, Pain, - When tolerating oral medications. - Initial dose 5 mg. - If pain control not adequate in 60 minutes, give additional 5 mg., Routine sodium chloride 0.9 % flush 5-20 mL 5-20 mL, Intravenous, EVERY 1 MIN PRN, S tarting 10/09/17 at 1343, Until Tue10/18/17 at 1137, flush, Flush pertains to all indwelling lines. Flush per protocol found in the job aid using the link provided on this medication record., Routine Linked Groups Order Group 1: pantoprazole (PROTONIX) tablet 40 mgJump to med 40 mg, Oral, DAILY, First dose on Tue at 1515, Until Discontinued
DO NOT CRUSH OR OPEN If unable to take PO, may give IV
Routine Or pantoprazole (PROTONIX) injection 40 mgJump to med 40 mg, Intravenous, DAILY, First dose on Tue10/07/17 at 1515, Until Discontinued
Reconstitute with 10 mL of normal saline to a concentration of 4 mg/mL and infuse slowly over 2 minutes.
Routine documented in this encounter Care Teams Paper Baler Relationship Specialty Start Date End Date Es Clinton PA PCP - General Family Medicine 08/09/17 10/09/19 [address] [place] [address] documented as of this encounter
--- OUTSIDE RECORDS SUMMARY | 2021-10-28 14:13 | XMS_ITS | Encounter Summary ---
:1955 Author Organization [facility] [place] [address] Care Team Providers Name Role Phone Es Clinton Primary Care Provider Encounter Details Date Type Department Care Team Description 09/15/2017 Surgery Main Operating Room Td Ayala [facility] Petra Bergman MD ECHOCARDIOGRAM (WRVU 2.55) [facility] [address] [place] [address] [place] [address] [phone] Social History Tobacco Use Types Packs/Day Years [...] Sign Reading Time Taken Comments Blood Pressure 102/63 09/15/2017 12:24 PM EDT Pulse 70 09/15/2017 11:38 AM EDT Temperature 36.8 ??C (98.2 ??F) 09/15/2017 11:38 AM EDT Respiratory Rate 16 09/15/2017 11:38 AM EDT Oxygen Saturation 93% 09/15/2017 12:24 PM EDT Inhaled Oxygen Concentration - - Weight 126.1 kg (278 lb) 09/15/2017 9:53 AM EDT Height 175.3 cm (5' 9) 09/15/2017 9:53 AM EDT Body Mass Index 41.05 09/15/2017 9:53 AM EDT documented in this encounter Discharge Instructions Discharge InstructionsTeetee Kevin RN - 09/15/2017 11:48 AM EDT SAME DAY PROGRAM POST-OPERATIVE INSTRUCTIONS POST TRANSESOPHAGEL ECHOCARDIOGRAPHY 1. A sore throat is normal after the procedure. It usually lasts several hours. Cold liquids and soothing lozenges will help ease the discomfort. 2. You may resume your normal diet in two hours. 3. No driving for twenty-four hours. No heavy lifting, no climbing or activities that require balance for twenty-four hours. 4. Please call you doctor if you develop: a. Difficulty swallowing or breathing b. Severe chest or abdominal pain c. Vomiting of blood 5. If you are having problems or have additional concerns or questions please call: Cardiology Clinic 8am - 5pm Same Day Program 6am- 6:30pm Emergency Room after 6:30pm documented in this encounter Medications at Time of Discharge Medication Sig Dispensed Refills Start Date End Date aspirin 81 mg Tablet, Take 81 mg by mouth 0 Delayed Release (E.C.) daily. tamsulosin (FLOMAX) 0.4 Take 0.4 mg by mouth 0 mg Capsule, Sust. daily. Release 24 hr albuterol 90 Inhale 2 puffs into 0 mcg/actuation HFA the lungs every 4 Aerosol Inhaler hours as needed for Wheezing. Use with spacer furosemide (LASIX) 40 20 mg daily. 0 07/23/2017 0 03/06/2019 mg Tablet chlorhexidine Apply topically daily 120 mL 0 08/25/2017 10/18/2017 (HIBICLENS) 4 % Liquid as needed. Shower from head to toe with Chlorhexidine the night before surgery . apixaban (ELIQUIS) 5 mg Take 5 mg by mouth 2 0 10/18/2017 Tablet times daily. furosemide (LASIX) 40 Take 20 mg by mouth 2 0 10/18/2017 mg Tablet times daily. metoprolol succinate Take 25 mg by mouth 0 10/18/2017 (TOPROL-XL) 25 mg daily. Indications: Tablet Sustained take 1.5 tablets daily Release 24 hrIndications: take 1.[address] 0.4 mg under the 0 10/18/2017 (NITROSTAT) 0.4 mg tongue every 5 minutes Tablet, Sublingual as needed for Chest pain. atorvastatin (LIPITOR) Take 40 mg by mouth 0 03/10/2021 40 mg Tablet daily. documented as of this encounter Progress Notes Teetee Kevin RN - 09/15/2017 12:23 PM EDT Patient with +gag reflex at this time. Diet advanced to clears. documented in this encounter H&P Notes Ankur García - 09/15/2017 10:38 AM EDT Patient Name: Cristian Grey Patient Age: 61 y.o. Birthdate: 1955 Admit date: 09/15/2017 Attending Physician: Demetrius Abbasi MD Patient seen in same day. No change in status since last visit. Patient understands he is here todayfor a tranesophageal echocardiogram to assess severity of his mitral regurgitation in preporation for possible surgical planning. Patient had a TTE at [facility] that showed moderate to severe MR. He has had progressive shortness of breath with exertion. Patient has no absolute contraindications to proceeding with CARRILLO. He does report he occasionally hasdifficulty swallowing his pills. No history of esophageal strictures or varices. No cirrhosis. He odalis eliquis. On exam, he has a holosystolic murmur heard best at the apex. Dentition intact. Mallampati II. We will proceed as planned. Ankur García MD Resources Representative [phone] documented in this encounter Plan of Treatment Upcoming Encounters Date Type Specialty Care Team Description 11/11/2021 Office Visit Nephrology Jonn Zuniga MD [facility] ER NEPHROLOGY DEPT [place] [phone] (Wo rk) Scheduled Orders Name Type Priority Associated Diagnoses Order S chedule Transesophageal Echocardiography Routine Non-rheumatic mitral One Time for 1 Echo/OR regurgitation Occurrences starting 09/15/2017 unti l 09/15/2017 documented as of this encounter Procedures Procedure Name Priority Date/Time Associated Diagnosis Comme nts TRANSESOPHAGEAL Routine 09/15/2017 11:44 Coronary artery Resul ts for this ECHOCARDIOGRAM (CARRILLO) AM EDT disease, angina proc edure are in presence the results unspecified, section. unspecified vessel or lesion type, unspecified whether [place] or transplanted heart TRANSESOPHAGEAL 09/15/2017 10:43 mitral regurgiation ECHOCARDIOGRAM (WRVU AM EDT 2.55) POCT GLUCOSE Routine 09/15/2017 10:25 Results for this AM EDT procedure are i n the results section. documented in this encounter Results CARRILLO IN MINOR (09/15/2017 11:44 AM EDT) P athologist Signature EF 65 HEARTLAB SYSTEM Anatomical Region Laterality Modality Other Specimen (Source) Anatomical Location Collection Method / Collectio n Time Received Time / Laterality Volume 09/15/2017 Narrative 09/15/2017 2:00 PM EDT Procedure: ?Transesophageal Echocardiogram Patient: ?GREY CRISTIAN R ? (Age): 1955(61y) Med Rec#: ? [id number] ?Sex: ?M ? Site Loc: ? [facility] ?Ht / Wt: ??175(cm)/126(kg) Pt. Loc: ?PACU ?BSA: ?2.37 Study Date: ?? 09/15/2017 ?Pt. Type: Tape: ? Referring: SULMA MILLER S Reading: Td Ayala ([id number]) Molding Fitter: Ayden Mckenzie Molding Fitter: Ankur García ([id number]) Diagnosis: *Nonrheumatic mitral (valve) insufficie ncy (I34.0) BP: ? 104/38 SUMMARY: 1. Normal biventricular size and systoli c function, LVEF65%. No wall motion abnormalities. Normal LV wall thi ckness. 2. There is malcoaptation of the mitral leaflets resulting in moderate to severe MR that is posteriorly directe d (EROA0.31). 3. Other findings as noted below. Findings ? : Left Ventricle: ? The left ventricul ar chamber size is normal. ?Left ventricular wall thickness is normal. ?There is no evidence of left ventr icular endocardial scarring or thinning. ?There is normal global left ventri cular systolic function. ??Ejection fraction is estimated to be 65%. Left Atrium: ? There is no evidence of spontaneous echo contrast. ?No atrial septal defect is visuali zed. ?There is no patent foramen ovale v isualized. Right Ventricle: ? The right ventric le is normal in size. ?Right ventricular global systolic function is normal. Aortic Valve: ? The aortic valve is tricuspid. ?There is no evidence of aortic kristofer ve stenosis. ?There is no evidence of aortic reg urgitation. Mitral Valve: ? The mitral valve chidi flets do not appear thickened. ?Mitral valve leaflet mobility appe ars normal. ?There is no evidence of mitral kristofer ve leaflet prolapse. ?There is moderate to severe (3+/4+ ) mitral regurgitation present. ?The effective regurgitant orifice area is 0.31. ?The mitral regurgitant jet is post eriorly directed. ?No systolic anterior motion of the mitral valve is observed. Tricuspid Valve: ? The tricuspid kristofer ve leaflets are morphologically normal. ?The tricuspid valve leaflets are n ot thickened. Pulmonic Valve: ? The pulmonic valve is not well visualized. ?There is no evidence of pulmonic r egurgitation. Pericardium: ? The pericardium appea rs normal and there is no evidence of a pericardial effusion. Aorta: ? The aorta appears normal. ?The aortic root is normal in size. ?The ascending aorta is normal in s ize. ?There is no plaque visualized in t he ascending aorta. ?There is evidence of grade 1 (norm al intima) of the ascending aorta. ?There is plaque visualized in the descending thoracic aorta. ?There is evidence of grade 2 (exte nsive intimal thickening) atheromatous disease of the descending t horacic aorta. Carrillo Procedures: ? The procedure and risk were explained to the patient who consented to the study. ?The CARRILLO probe was passed by the wi rdiologist after the patient was sedated with general anesthesia. ?There were no complications during the procedure. Misc: ? Transesophageal echo, limite d spectral Doppler and color Doppler performed. Mitral Valve ?Value ?Units (Range) ? MR Vmax ? 4.7 ?m/sec ? MR VTI ?145 ?cm ? MR volume (PISA) ?45 ? ml ? MR flow (PISA) ?147.5 ?ml/sec ? MR ERO ?0.3 ?cm2 ? This report has been electronically sign ed by: _ Td Ayala MD ? 09/15/2017 13:59:58 Images reviewed and interpretation [facility] Cardiac Ultrasound Laboratory Procedure Note Td Ayala MD - 09/15/2017Forma tting of this note might be different from the original. Procedure: Transesophageal Echocardiogra m Patient: MATILDA Garcia DOB(Age): [birth year] 8(61y) Med Rec#: [id number] Sex: M Site Loc: [facility] Ht / Wt: 175(cm)/126(kg) Pt. Loc: PACU BSA: 2.37 Study Date: 09/15/2017 Pt. Type: Tape: Referring: SULMA MILLER S Reading: Td Ayala ([id number]) Molding Fitter: Ayden Mckenzie Molding Fitter: Ankur García ([id number]) Diagnosis: *Nonrheumatic mitral (valve) insufficie ncy (I34.0) BP: 104/38 SUMMARY: 1. Normal biventricular size and systoli c function, LVEF65%. No wall motion abnormalities. Normal LV wall thi ckness. 2. There is malcoaptation of the mitral leaflets resulting in moderate to severe MR that is posteriorly directe d (EROA0.31). 3. Other findings as noted below. Findings : Left Ventricle: The left ventricular deisi mber size is normal. Left ventricular wall thickness is norm al. There is no evidence of left ventricula r endocardial scarring or thinning. There is normal global left ventricular systolic function. Ejection fraction is estimated to be 65%. Left Atrium: There is no evidence of spo ntaneous echo contrast. No atrial septal defect is visualized. There is no patent foramen ovale visual ized. Right Ventricle: The right ventricle is normal in size. Right ventricular global systolic funct ion is normal. Aortic Valve: The aortic valve is tricus pid. There is no evidence of aortic valve st enosis. There is no evidence of aortic regurgit ation. Mitral Valve: The mitral valve leaflets do not appear thickened. Mitral valve leaflet mobility appears n ormal. There is no evidence of mitral valve le aflet prolapse. There is moderate to severe (3+/4+) jessica ral regurgitation present. The effective regurgitant orifice area is 0.31. The mitral regurgitant jet is posterior ly directed. No systolic anterior motion of the mitr al valve is observed. Tricuspid Valve: The tricuspid valve chidi flets are morphologically normal. The tricuspid valve leaflets are not th ickened. Pulmonic Valve: The pulmonic valve is no t well visualized. There is no evidence of pulmonic regurg itation. Pericardium: The pericardium appears nor mal and there is no evidence of a pericardial effusion. Aorta: The aorta appears normal. The aortic root is normal in size. The ascending aorta is normal in size. There is no plaque visualized in the as cending aorta. There is evidence of grade 1 (normal in belle) of the ascending aorta. There is plaque visualized in the desce nding thoracic aorta. There is evidence of grade 2 (extensive intimal thickening) atheromatous disease of the descending t horacic aorta. Carrillo Procedures: The procedure and risk w ere explained to the patient who consented to the study. The CARRILLO probe was passed by the cardiol ogist after the patient was sedated with general anesthesia. There were no complications during the procedure. Misc: Transesophageal echo, limited spec tral Doppler and color Doppler performed. Mitral Valve Value Units (Range) MR Vmax 4.7 m/sec MR VTI 145 cm MR volume (PISA) 45 ml MR flow (PISA) 147.5 ml/sec MR ERO 0.3 cm2 This report has been electronically sign ed by: _ Td Ayala MD 09/15/2017 13:59: 58 Images reviewed and interpretation verif ied [facility] Cardiac Ultrasound Laboratory Shaun Sainz MD ECHO ORDERABLES POCT Glucose (09/15/2017 10:25 AM EDT) athologist Signature POC Glucose 99 65 - 199 [facility] mg/dL [facility] Comment: Supplemental ranges: <140 mg/dL before meals <180 mg/dL all other times of the day Specimen Anatomical Collection Method Collection Time Receive d Time (Source) Location / / Volume Laterality Blood specimen 09/15/2017 10:25 8 (specimen) AM EDT 10:25 AM EDT Demetrius Abbasi MD POINT OF CARE TEST ORDERABLE S Performing Organization Address City/State/[place] [address] documented in this encounter Visit Diagnoses Not on filedocumented in this encounter Administered Medications Inactive Administered Medications - up to 3 most recent administrations Medication Order MAR Action Action Date Dose Rate Site lactated Ringers infusion New Bag 09/15/2017 10:15 AM 1,000 mLs 1 00 mL/hr 1,000 mL EDT 1,000 mL, at 100 mL/hr, Intravenous, CONTINUOUS, Starting on Nerissa 09/15/17 at 1015, Until Nerissa 09/15/17 at 1239, Day of Surgery (Day of Procedure) lidocaine (XYLOCAINE) 5 % Given 09/15/2017 10:50 AM 1 inch 20-Other (document ointment EDT in comment sect ion) ONCE PRN, Starting on Nerissa 09/15/17 at 1050, Until Nerissa 09/15/17 at 1511, Intra-Operative (Intra-Procedure) documented in this encounter Active and Recently Administered Medications Times are shown in EDT. Continuous Medication Order 09/13/2017 09/14/2017 09/15/2017 lactated Ringers infusion 1,000 mL (CANCELED) 1015 (New Bag - Provider: Joanne Patel RN)1043 (Canceled Entry - Provider: Alessandro Haney CRNA) 1,000 mL, at 100 mL/hr, Intravenous, CON TINUOUS, Starting Nerissa 09/15/17 at 1015, Until Nerissa 09/15/17 at 1239, Day of Surgery (Day of Procedure) sodium chloride 0.9% infusion 1 mL/hr, at 1 mL/hr, Intravenous, CONTIN UOUS, Starting Nerissa 09/15/17 at 1330, Until Nerissa 09/15/17 at 1511, Recovery (Recovery-Hospital Unit) PRN Medication Order 09/13/2017 09/14/2017 09/15/2017 lidocaine (XYLOCAINE) 5 % ointment (CANCELED) 1050 (Given - Provider: Everton Silveira MD - Comment: back of throat) ONCE PRN, Starting Nerissa 09/15/17 at 1050, Intra-Operative (Intra-P rocedure) documented in this encounter Care Teams Healthcare Technician Relationship Specialty Start Date End Date Es Clinton PA PCP - General Family Medicine 08/09/17 10/09/19 [address] [place] [address] documented as of this encounter
--- OUTSIDE RECORDS SUMMARY | 2021-10-28 14:13 | XMS_ITS | Encounter Summary ---
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 Date: 10/07/2017 Surgeon: Surgeon(s) and Role: * Juan Alberto Dunlap MD - Primary * Cal Watson PA - Physician Buildings And Grounds Director * Emily Avina PA - Physician Buildings And Grounds Director Preoperative diagnosis: CAD, MR Postoperative diagnosis: CAD, [...] Visit Nephrology Jonn Zuniga MD [facility] ER NEPHROLOGY DEPT [place], [place] [address] (Wo rk) Scheduled Orders Name [...] procedure are i n the results section. 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 PROTHROMBIN TIME Routine 10/12/2017 5:18 AM Resul [...] 10/08/2017 3:50 AM Result s for this (MC/CGP) EDT procedure are i n the results [...] R ? (Age): 1955(61y) Med Rec#: ? [id number] ?Sex: ?M ? Site Loc: ? [facility] ?Ht / Wt: ??172(cm)/126(kg) Pt. Loc: ?Echo Lab ?BSA: ?2.34 Study Date: ?? 11/17/2017 ?Pt. Type: Outpatient Tape: ? Referring: HAILEE AGUILAR Reading: Lalito Gallegos ([id number]) Preschool Principal: Palak Martin Oven Builder: Ekaterina Patel Diagnosis: *Other specified postprocedural states [...] E-wave Vmax ?1.7 ?m/sec ? MV deceleration [id number] ?msec ? MV A-wave Vmax ?0.8 ?m/sec [...] ? Mid-Inferior ?Akinetic ? Mid-Inferoseptal ?Normal ? Britt-Septal ? Normal ? Britt-Anterior ? Normal ? Britt-Lateral ?Normal ? Britt-Inferior ? Normal ? Britt-Tip ?Normal ? This report has been electronically sign ed by: _ Lalito Gallegos MD ? 11/17/2017 1 4:26:29 Images reviewed and interpretation [facility] Cardiac Ultrasound Laboratory Procedure Note Lalito Gallegos MD - 11/17/2017Format ting of this note might be different from the original. Procedure: Transthoracic Echocardiogram Patient: MATILDA DACOSTA(Age): [birth year](61y) Med Rec#: [id number] Sex: M Site Loc: [facility] Ht / Wt: 172(cm)/126(kg) Pt. Loc: Echo Lab BSA: 2.34 Study Date: 11/17/2017 Pt. Type: Outpati ent Tape: Referring: HAILEE AGUILAR Reading: Rosy Lalito D. ([id number]) Preschool Principal: Palak Martin Oven Builder: Ekaterina Patel Diagnosis: *Other specified postprocedural states [...] MV E-wave Vmax 1.7 m/sec MV deceleration [id number] msec MV A-wave Vmax 0.8 m/sec MV [...] Akinetic Mid-Posterolateral Hypokinetic Mid-Inferior Akinetic Mid-Inferoseptal Normal Britt-Septal Normal Britt-Anterior Normal Britt-Lateral Normal Britt-Inferior Normal Britt-Tip Normal This report has been electronically sign ed by: _ Lalito Gallegos MD 11/17/2017 14:26:2 9 Images reviewed and interpretation verif ied [facility] Cardiac Ultrasound Laboratory Hailee Aguilar APRN ECHO ORDERABLES XR Chest PA & Lateral [...] findings, Jared nicole 11/17/2017 3:54 PM Hailee Rolfe UPHOLSTERY COVERS INSPECTOR IMG DX ORDERABLES SCAN DOC: EAR PULL MACHINE OPERATOR (10/19/2017 12:00 AM EDT) Narrative 10/19/2017 12:00 AM EDT This result has an attachment that is no t available. Ordered by an unspecified provider. Scanning Provider MEDIA MGR SCAN EXT ORDR/RSLT SCAN DOC: EAR PULL MACHINE OPERATOR (10/19/2017 12:00 AM EDT) Narrative 10/19/2017 12:00 [...] (ABNORMAL) Prothrombin Time (10/18/2017 3:48 AM EDT) athologist Signature PT 27.6 (H) 9.4 - 12.5 [facility] LABORATORY INR 2.5 [facility] LABORATORY Comment: An INR <2.0 indicates [...] Organization Address City/State/[place] [address] Potassium (10/18/2017 3:48 AM EDT) P athologist Signature Potassium 4.3 3.5 - 5.0 [facility] mmol/L [facility] LABORATORY Comment: Please note: ??Patients with [...] Dunlap MD CHEMISTRY ORDERABLES Performing Organization Address City/[facility]/[place] [address] (ABNORMAL) Prothrombin Time (10/17/2017 4:51 AM EDT) athologist Signature PT 26.9 (H) 9.4 - 12.5 [facility] LABORATORY INR 2.4 [facility] LABORATORY Comment: An INR <2.0 indicates [...] Dunlap MD HEMATOLOGY ORDERABLES Performing Organization Address City/[facility]/[place] [address] Potassium (10/17/2017 4:51 AM EDT) athologist Signature Potassium 4.4 3.5 - 5.0 [facility] mmol/L [facility] LABORATORY Comment: Please note: ??Patients with [...] Organization Address City/State/[place] [address] (ABNORMAL) Prothrombin Time (10/16/2017 4:51 AM EDT) athologist Signature PT 25.2 (H) 9.4 - 12.5 [facility] LABORATORY INR 2.2 [facility] LABORATORY Comment: An INR <2.0 indicates [...] Dunlap MD HEMATOLOGY ORDERABLES Performing Organization Address City/[facility]/[place] [address] Potassium (10/16/2017 4:51 AM EDT) athologist Signature Potassium 4.4 3.5 - 5.0 [facility] mmol/L [facility] LABORATORY Comment: Please note: ??Patients with [...] Dunlap MD CHEMISTRY ORDERABLES Performing Organization Address City/[facility]/[place] [address] (ABNORMAL) Prothrombin Time (10/15/2017 3:17 AM EDT) P athologist Signature PT 23.5 (H) 9.4 - 12.5 [facility] LABORATORY INR 2.1 [facility] LABORATORY Comment: An INR <2.0 indicates [...] Dunlap MD HEMATOLOGY ORDERABLES Performing Organization Address City/[facility]/[place] [address] Potassium (10/15/2017 3:17 AM EDT) P athologist Signature Potassium 4.6 3.5 - 5.0 [facility] mmol/L [facility] LABORATORY Comment: Please note: ??Patients with [...] Dunlap MD CHEMISTRY ORDERABLES Performing Organization Address City/[facility]/ZIP Code Phon e Number [address] (ABNORMAL) Prothrombin Time (10/14/2017 12:05 PM EDT) P athologist Signature PT 21.7 (H) 9.4 - 12.5 [facility] LABORATORY INR 1.9 [facility] LABORATORY Comment: An INR <2.0 indicates [...] Organization Address City/State/[place] [address] Potassium (10/14/2017 12:05 PM EDT) P athologist Signature Potassium 4.4 3.5 - 5.0 [facility] mmol/L [facility] LABORATORY Comment: Please note: ??Patients with [...] Organization Address City/State/[place] [address] (ABNORMAL) Prothrombin Time (10/13/2017 8:39 AM EDT) P athologist Signature PT 25.5 (H) 9.4 - 12.5 [facility] LABORATORY INR 2.3 [facility] LABORATORY Comment: An INR <2.0 indicates [...] Dunlap MD HEMATOLOGY ORDERABLES Performing Organization Address City/[facility]/[place] [address] Potassium (10/13/2017 8:39 AM EDT) P athologist Signature Potassium 3.7 3.5 - 5.0 [facility] mmol/L [facility] LABORATORY Comment: Please note: ??Patients with [...] Dunlap MD CHEMISTRY ORDERABLES Performing Organization Address City/[facility]/ZIP [facility] [place] [address] EKG 12 Lead (10/12/2017 11:42 AM EDT) Component Value Ref Range Test Analysis Performed Pathologis t Method Time At Signature Ventricular rate 69 BPM MUSE SYSTEM Atrial Rate 69 BPM MUSE SYSTEM P-R Interval 180 ms MUSE SYSTEM QRS Duration 112 ms MUSE SYSTEM Q-T Interval 496 ms MUSE SYSTEM QTC Calculated 531 ms MUSE SYSTEM (Bezet) Calculated P Jarbidge 41 degrees MUSE SYSTEM Calculated R [place] 55 degrees MUSE SYSTEM Calculated T [place] 21 degrees MUSE SYSTEM INTERPRETATION Normal sinus [...] Hough MD ECG ORDERABLES Performing Organization Address City/State/ZIP Code Phon e Number MUSE SYSTEM CARDIOVERSION-OR (10/12/2017 [...] (ABNORMAL) Prothrombin Time (10/12/2017 5:18 AM EDT) P athologist Signature PT 30.9 (H) 9.4 - 12.5 [facility] LABORATORY INR 2.8 [facility] LABORATORY Comment: An INR <2.0 indicates [...] Dunlap MD HEMATOLOGY ORDERABLES Performing Organization Address City/[facility]/[place] [address] Potassium (10/12/2017 5:18 AM EDT) athologist Signature Potassium 3.9 3.5 - 5.0 [facility] mmol/L [facility] LABORATORY Comment: Please note: ??Patients with [...] Dunlap MD CHEMISTRY ORDERABLES Performing Organization Address City/[facility]/[place] [address] EKG 12 Lead (10/11/2017 5:08 PM EDT) Component Value Ref Range Test Analysis Performed Pathologis t Method Time At Signature Ventricular rate 82 BPM MUSE SYSTEM Atrial Rate 101 BPM MUSE SYSTEM QRS Duration 112 ms MUSE SYSTEM Q-T Interval 428 ms MUSE SYSTEM QTC Calculated 500 ms MUSE SYSTEM (Bezet) Calculated R Jarbidge 66 degrees MUSE SYSTEM Calculated T Jarb[place] 42 degrees MUSE SYSTEM INTERPRETATION Atrial fibrillation [...] (ABNORMAL) Differential, Automated (10/11/2017 11:38 AM EDT) [facility] gist Method Time Signature Neutrophils % 81.5 % [facility] LABORATORY Neutr Abs (ANC) 7.59 (H) 1.70 - [facility] 6.10 [facility] x10(3)/[facility] LABORATORY Lymphocytes % 9.4 % [facility] LABORATORY Lymphocytes Abs 0.9 0.9 - 3.2 [facility] x10(3)/[facility] LABORATORY Monocytes % 7.2 % [facility] LABORATORY Monocyte Abs 0.7 0.3 - 0.9 [facility] x10(3)/[facility] LABORATORY Eosinophils % 0.4 % [facility] LABORAT[facility] Eosinophils Abs 0.0 0.0 - 0.4 [facility] x10(3)/[facility] LABORATORY Basophils % 0.4 % [facility] LABORATORY Basophils Abs 0.0 0.0 - 0.1 [facility] x10(3)/[facility] LABORATORY Immature Gran % 1.10 % [facility] LABORATORY Comment: Immature granulocytes(IG's)percentage an d absolute count will include metamyelocytes, myelocytes, and promyelo cytes. Blood smears from CBCs yielding IG's will be scanned manually for concmaxim dansofia. If this scan disagrees with the automated IG or if promyelocytes are not ed, a manual differential will be performed. Nell Gran Abs 0.10 (H) 0.00 - 0.04 x10(3)/[facility] LABORATORY Specimen Anatomical Collection Method Collection Time Receive d Time (Source) Location / / Volume Laterality Blood specimen 10/11/2017 11:38 8 (specimen) AM EDT 12:20 PM EDT Resulting Agency Comment Spec In Lab Emily THORNTON HEMATOLOGY ORDERABLES Performing Organization Address City/State/[place] [address] (ABNORMAL) Hemogram (10/11/2017 11:38 AM EDT) Analysis Performed At Patho logist Time Signature WBC 9.3 4.0 - 9.5 [facility] x10(3)/[facility] LABORATORY RBC 4.13 (L) 4.58 - [facility] 5.54 [facility] x10(6)/[facility] LABORATORY Hemoglobin 12.2 (L) 13.7 - [facility] 16.[facility] gm/dL [facility] LABORATORY Hematocrit 36.8 (L) 40.5 - [facility] 48.5 % [facility] LABORATORY MCV 89.1 82.9 - [facility] 93.1 [facility] LABORATORY MCH 29.5 27.5 - [facility] 32.1 pg [facility] LABORATORY MCHC 33.2 32.0 - [facility] 35.7 gm/dL [facility] LABORATORY Platelets 141 (L) 145 - 357 [facility] x10(3)/[facility] LABORATORY RDWSD 43.3 36.0 - [facility] 45.0 [facility] LABORATORY RDWCV 13.3 11.4 - [facility] 13.8 % [facility] LABORATORY MPV 12.4 7.6 - 12.9 [facility] LABORATORY nRBC % Auto 0.0 % [facility] LABORATORY nRBC Abs Auto 0.000 0.000 - [facility] 0.000 [facility] x10(3)/[facility] LABORATORY Specimen Anatomical Collection Method Collection Time Receive d Time (Source) Location / / Volume Laterality Blood specimen 10/11/2017 11:38 8 (specimen) AM EDT 12:20 PM EDT Resulting Agency Comment Spec In Lab Emily THORNTON HEMATOLOGY ORDERABLES Performing Organization Address City/[facility]/[place] [address] Heparin (unfractionated) Level (10/11/2017 11:38 AM EDT) athologist Signature Heparin UFH 0.07 IU/mL [facility] LABORATORY Comment: Guidelines for therapeutic unfractionate d [...] Dunlap MD HEMATOLOGY ORDERABLES Performing Organization Address City/[facility]/ZIP Code Phon e Number [address] Potassium (10/11/2017 6:14 AM EDT) P athologist Signature Potassium 4.3 3.5 - 5.0 [facility] mmol/L [facility] LABORATORY Comment: Please note: ??Patients with [...] Dunlap MD CHEMISTRY ORDERABLES Performing Organization Address City/[facility] [place] [address] (ABNORMAL) Prothrombin Time (10/11/2017 6:14 AM EDT) P athologist Signature PT 28.1 (H) 9.4 - 12.5 [facility] LABORATORY INR 2.5 [facility] LABORATORY Comment: An INR <2.0 indicates [...] Dunlap MD HEMATOLOGY ORDERABLES Performing Organization Address City/[facility] [place] [address] (ABNORMAL) Differential, Automated (10/10/2017 10:53 AM EDT) Patholo gist Method Time Signature Neutrophils % 85.5 % [facility] LABORATORY Neutr Abs (ANC) 13.63 (H) 1.70 - [facility] 6.10 [facility] x10(3)/[facility] LABORATORY Lymphocytes % 4.6 % [facility] LABORATORY Lymphocytes Abs 0.7 (L) 0.9 - 3.2 [facility] x10(3)/[facility] LABORATORY Monocytes % 8.5 % [facility] LABORATORY Monocyte Abs 1.4 (H) 0.3 - 0.9 [facility] x10(3)/[facility] LABORATORY Eosinophils % 0.1 % [facility] LABORATORY Eosinophils Abs 0.0 0.0 - 0.4 [facility] x10(3)/[facility] LABORATORY Basophils % 0.4 % [facility] LABORATORY Basophils Abs 0.1 0.0 - 0.1 [facility] x10(3)/[facility] LABORATORY Immature Gran % 0.90 % [facility] LABORATORY Comment: Immature granulocytes(IG's)percentage an d absolute count will include metamyelocytes, myelocytes, and promyelo cytes. Blood smears from CBCs yielding IG's will be scanned manually for concor dance. If this scan disagrees with the automated IG or if promyelocytes are not ed, a manual differential will be performed. Nell Gran Abs 0.14 (H) 0.00 - 0.04 x10(3)/[facility] LABORATORY Specimen Anatomical Collection Method Collection Time Receive d Time (Source) Location / / Volume Laterality Blood specimen 10/10/2017 10:53 8 (specimen) AM EDT 11:06 AM EDT Resulting Agency Comment Spec In Lab Td THORTNON HEMATOLOGY ORDERABLES Performing Organization Address City/State/[place] [address] (ABNORMAL) Hemogram (10/10/2017 10:53 AM EDT) Analysis Performed At Patho logist Time Signature WBC 15.9 (H) 4.0 - 9.5 [facility] x10(3)/[facility] LABORATORY RBC 4.21 (L) 4.58 - [facility] 5.54 [facility] x10(6)/[facility] LABORATORY Hemoglobin 12.3 (L) 13.7 - [facility] 16.[facility] gm/dL [facility] LABORATORY Hematocrit 36.6 (L) 40.5 - [facility] 48.5 % [facility] LABORATORY MCV 86.9 82.9 - [facility] 93.1 [facility] LABORATORY MCH 29.2 27.5 - [facility] 32.1 pg [facility] LABORATORY MCHC 33.6 32.0 - [facility] 35.7 gm/dL [facility] LABORATORY Platelets 106 (L) 145 - 357 [facility] x10(3)/[facility] LABORATORY RDWSD 42.9 36.0 - [facility] 45.0 [facility] LABORATORY RDWCV 13.4 11.4 - [facility] 13.8 % [facility] LABORATORY MPV 12.4 7.6 - 12.9 [facility] LABORATORY nRBC % Auto 0.0 % [facility] LABORATORY nRBC Abs Auto 0.000 0.000 - [facility] 0.000 [facility] x10(3)/[facility] LABORATORY Specimen Anatomical Collection Method Collection Time Receive d Time (Source) Location / / Volume Laterality Blood specimen 10/10/2017 10:53 8 (specimen) AM EDT 11:06 AM EDT Resulting Agency Comment Spec In Lab Td THORNTON HEMATOLOGY ORDERABLES Performing Organization Address City/State/[place] [address] (ABNORMAL) Prothrombin Time (10/10/2017 10:53 AM EDT) P athologist Signature PT 20.1 (H) 9.4 - 12.5 [facility] LABORATORY INR 1.8 [facility] LABORATORY Comment: An INR <2.0 indicates [...] Organization Address City/State/[place] [address] (ABNORMAL) Basic Metabolic Panel (non-fasting) (10/10/2017 10:53 AM EDT) P athologist Signature Glucose Lvl 136 65 - 199 [facility] mg/dL [facility] LABORATORY Comment: Diabetes: >=200 mg/dL plus symp toms BUN 21 (H) 10 - 20 mg/dL [facility] LABORATORY Creatinine 0.68 (L) 0.80 - 1.50 mg/dL [facility] LABORATORY Sodium 132 (L) 135 - 145 mmol/L [facility] LABORATORY Potassium 3.9 3.5 - 5.0 mmol/L [facility] LABORATORY Comment: Please note: ??Patients with WBC >100,00 0 may have falsely elevated Potassium levels. ??For accurate Potassium quantif ication in these patients send serum separator tube (gold top) for subsequent determinations. ??Contact the Clinical Chemistry Laboratory if there are any qu estions. Chloride 96 (L) 98 - 107 mmol/L [facility] LABORATORY CO2 25 22 - 31 mmol/L [facility] LABOR[facility] Anion Gap 11 5 - 15 mmol/L [facility] LABORATORY Calcium 8.2 (L) 8.5 - 10.5 mg/dL [facility] LABORATORY Estimated GFR 105 >=60 mL/min/1.73 m?? [facility] LABORATORY Comment: The eGFR was calculated using the CKD-EP I equation. As with all creatinine based estimates of kidney function, eGFR values calculated with the CKD-EPI equation are not accurate in patients wi th acute kidney failure, extremes of body mass or the acutely ill. [email or web address] eGFR 121 >=60 mL/min/1.73 m?? [facility] LABORATORY Comment: The eGFR was calculated using the CKD-EP I equation. As with all creatinine based estimates of kidney function, eGFR values calculated with the CKD-EPI equation are not accurate in patients wi th acute kidney failure, extremes of body mass or the acutely ill. [email or web address] Specimen Anatomical Collection Method Collection Time Receive d Time (Source) Location / / Volume Laterality Blood specimen 10/10/2017 10:53 8 (specimen) AM EDT 11:06 AM EDT Resulting Agency Comment Spec In Lab Juan Alberto Dunlap MD CHEMISTRY ORDERABLES Performing Organization Address City/State/[place] [address] XR Chest PA & [...] Signature POC Glucose 125 65 - 199 [facility] mg/dL [facility] LABORATORY Comment: Supplemental ranges: <140 mg/dL before meals <180 mg/dL all other times of the day Specimen Anatomical Collection Method Collection Time Receive d Time (Source) Location / / Volume Laterality Blood specimen 10/09/2017 8:27 AM 018 8:27 (specimen) EDT AM EDT Juan Alberto Dunlap MD POINT OF CARE TEST ORDERABLE S Performing Organization Address City/State/[place] [address] POCT Glucose (10/09/2017 3:54 AM EDT) athologist Signature POC Glucose 127 65 - 199 [facility] mg/dL [facility] LABORATORY Comment: Supplemental ranges: <140 mg/dL before meals <180 mg/dL all other times of the day Specimen Anatomical Collection Method Collection Time Receive d Time (Source) Location / / Volume Laterality Blood specimen 10/09/2017 3:54 AM 018 3:54 (specimen) EDT AM EDT Juan Alberto Dunlap MD POINT OF CARE TEST ORDERABLE S Performing Organization Address City/[facility]/[place] [address] Potassium (10/09/2017 3:50 AM EDT) P athologist Signature Potassium 4.2 3.5 - 5.0 [facility] mmol/L [facility] LABORATORY Comment: Please note: ??Patients with [...] Dunlap MD CHEMISTRY ORDERABLES Performing Organization Address City/[facility]/[place] [address] (ABNORMAL) Prothrombin Time (10/09/2017 3:50 AM EDT) P athologist Signature PT 15.7 (H) 9.4 - 12.5 [facility] LABORATORY INR 1.4 [facility] LABORATORY Comment: An INR <2.0 indicates [...] Dunlap MD HEMATOLOGY ORDERABLES Performing Organization Address City/[facility]/ZIP Code Phon e Number [facility] [place] [address] POCT Glucose (10/08/2017 11:26 PM EDT) athologist Signature POC Glucose 111 65 - 199 [facility] mg/dL [facility] LABORATORY Comment: Supplemental ranges: <140 mg/dL before meals <180 mg/dL all other times of the day Specimen Anatomical Collection Method Collection Time Receive d Time (Source) Location / / Volume Laterality Blood specimen 10/08/2017 11:26 8 (specimen) PM EDT 11:26 PM EDT Juan Alberto Dunlap MD POINT OF CARE TEST ORDERABLE S Performing Organization Address City/State/[place] [address] POCT Glucose (10/08/2017 7:54 PM EDT) athologist Signature POC Glucose 130 65 - 199 [facility] mg/dL [facility] LABORATORY Comment: Supplemental ranges: <140 mg/dL before meals <180 mg/dL all other times of the day Specimen Anatomical Collection Method Collection Time Receive d Time (Source) Location / / Volume Laterality Blood specimen 10/08/2017 7:54 PM 018 7:54 (specimen) EDT PM EDT Juan Alberto Dunlap MD POINT OF CARE TEST ORDERABLE S Performing Organization Address City/State/[place] [address] Potassium (10/08/2017 7:50 PM EDT) athologist Signature Potassium 4.4 3.5 - 5.0 [facility] mmol/L [facility] LABORATORY Comment: Please note: ??Patients with [...] Organization Address City/State/[place] [address] POCT Glucose (10/08/2017 6:38 PM EDT) athologist Signature POC Glucose 104 65 - 199 [place] mg/dL [facility] Comment: Supplemental ranges: <140 mg/dL before meals <180 mg/dL all other times of the day Specimen Anatomical Collection Method Collection Time Receive d Time (Source) Location / / Volume Laterality Blood specimen 10/08/2017 6:38 PM 018 6:38 (specimen) EDT PM EDT Juan Alberto Dunlap MD POINT OF CARE TEST ORDERABLE S Performing Organization Address City/State/[place] [address] POCT Glucose (10/08/2017 2:56 PM EDT) athologist Signature POC Glucose 117 65 - 199 [facility] LUANN mg/dL [facility] Comment: Supplemental ranges: <140 mg/dL before meals <180 mg/dL all other times of the day Specimen Anatomical Collection Method Collection Time Receive d Time (Source) Location / / Volume Laterality Blood specimen 10/08/2017 2:56 PM 018 2:56 (specimen) EDT PM EDT Juan Alberto Dunlap MD POINT OF CARE TEST ORDERABLE S Performing Organization Address City/State/[place] [address] (ABNORMAL) Potassium (10/08/2017 11:18 AM EDT) athologist Signature Potassium 5.3 (H) 3.5 - 5.0 [facility] mmol/L [facility] Comment: Please note: ??Patients with [...] Organization Address City/State/[place] [address] (ABNORMAL) Prothrombin Time (10/08/2017 11:18 AM EDT) P athologist Signature PT 14.3 (H) 9.4 - 12.5 [facility] LABORATORY INR 1.3 [facility] Comment: An INR <2.0 indicates [...] Dunlap MD HEMATOLOGY ORDERABLES Performing Organization Address City/[facility]/[place] [address] POCT Glucose (10/08/2017 11:04 AM EDT) athologist Signature POC Glucose 158 65 - 199 [facility] mg/dL [facility] Comment: Supplemental ranges: <140 mg/dL before meals <180 mg/dL all other times of the day Specimen Anatomical Collection Method Collection Time Receive d Time (Source) Location / / Volume Laterality Blood specimen 10/08/2017 11:04 8 (specimen) AM EDT 11:04 AM EDT Juan Alberto Dunlap MD POINT OF CARE TEST ORDERABLE S Performing Organization Address City/State/ZIP Code Phon e Number [address] POCT Glucose (10/08/2017 10:34 AM EDT) athologist Signature POC Glucose 140 65 - 199 [facility]/dL [facility] Comment: Supplemental ranges: <140 mg/dL before meals <180 mg/dL all other times of the day Specimen Anatomical Collection Method Collection Time Receive d Time (Source) Location / / Volume Laterality Blood specimen 10/08/2017 10:34 8 (specimen) AM EDT 10:34 AM EDT Juan Alberto Dunlap MD POINT OF CARE TEST ORDERABLE S Performing Organization Address City/State/ZIP Code Phon e Number [address] Urinalysis Microscopic Exam (10/08/2017 10:12 AM EDT) athologist Signature RBC UA <1 0 - 3 /HPF [facility] WBC UA 0 0 - 3 /HPF [facility] Specimen (Source) Anatomical Collection Method Collection Time Re ceived Time Location / / Volume Laterality Urine specimen 10/08/2017 10:12 8 obtained via AM EDT 10:29 AM EDT indwelling urinary catheter (specimen) Resulting Agency Comment Spec In Lab Geoffrey Kulkarni MD URINE ORDERABLES Performing Organization Address City/State/[place] [address] (ABNORMAL) Urinalysis with reflex Culture (10/08/2017 10:12 AM EDT) Patholo gist Method Time Signature Glucose UA Negative Negative [facility] mg/dL [facility] Protein UA 30 (A) Negative [facility] mg/dL [facility] Bilirubin UA Negative Negative [facility] mg/dL [facility] Comment: Clinical correlation required for positi ve Urine Bilirubin results as false positive may occur with some drugs and d rug related products. If a false positive is suspected a serum total bili watt should be considered if clinically indicated. Urobilinogen UA Normal Normal mg/dL [facility] pH UA 5.0 5.0 - 8.0 [facility] Blood UA Negative Negative mg/dL [facility] Ketones UA Negative Negative mg/dL [facility] Nitrite UA Negative Negative [facility] Leukocytes UA Negative Negative [facility] LABORATORY Appearance UA Turbid (A) Clear [facility] Spec [place] UA >1.035 (H) 1.002 - 1.030 [facility] Color UA Yellow Yellow [facility] Culture Reflexed No [facility] Specimen (Source) Anatomical Collection Method Collection Time Re ceived Time Location / / Volume Laterality Urine specimen 10/08/2017 10:12 8 obtained via AM EDT 10:29 AM EDT indwelling urinary catheter (specimen) Resulting Agency Comment Spec In Lab Juan Alberto Dunlap MD URINE ORDERABLES Performing Organization Address City/[facility]/ZIP Code Phon e Number [address] POCT Glucose (10/08/2017 9:15 AM EDT) athologist Signature POC Glucose 142 65 - 199 [facility] mg/dL [facility] Comment: Supplemental ranges: <140 mg/dL before meals <180 mg/dL all other times of the day Specimen Anatomical Collection Method Collection Time Receive d Time (Source) Location / / Volume Laterality Blood specimen 10/08/2017 9:15 AM 018 9:15 (specimen) EDT AM EDT Juan Alberto Dunlap MD POINT OF CARE TEST ORDERABLE S Performing Organization Address City/State/ZIP Code Phon e Number [address] POCT Glucose (10/08/2017 7:56 AM EDT) P athologist Signature POC Glucose 143 65 - 199 [facility] mg/dL [facility] Comment: Supplemental ranges: <140 mg/dL before meals <180 mg/dL all other times of the day Specimen Anatomical Collection Method Collection Time Receive d Time (Source) Location / / Volume Laterality Blood specimen 10/08/2017 7:56 AM 018 7:56 (specimen) EDT AM EDT Juan Alberto Dunlap MD POINT OF CARE TEST ORDERABLE S Performing Organization Address City/State/[place] [address] POCT Glucose (10/08/2017 7:04 AM EDT) P athologist Signature POC Glucose 127 65 - 199 [facility] mg/dL [facility] Comment: Supplemental ranges: <140 mg/dL before meals <180 mg/dL all other times of the day Specimen Anatomical Collection Method Collection Time Receive d Time (Source) Location / / Volume Laterality Blood specimen 10/08/2017 7:04 AM 018 7:04 (specimen) EDT AM EDT Juan Alberto Dunlap MD POINT OF CARE TEST ORDERABLE S Performing Organization Address City/[facility]/[place] [address] (ABNORMAL) BLOOD GAS 2 ARTERIAL (10/08/2017 6:25 AM EDT) Analysis Performed At Patho logist Time Signature pH Art 7.42 7.35 - [facility] 7.45 [facility] pCO2 Art 32 (L) 35 - 45 [facility] LABORATORY pO2 Art 108 (H) 85 - 104 [facility]ORY HCO3 Art 20.3 20.0 - [facility] 26.0 [facility] mmol/L [facility] BE Art -4.2 (L) -3.0 - 3.0 [facility] mmol/L [facility] Hgb Blood Gas 14.0 13.7 - [facility] 16.5 gm/dL [facility] O2HB Art 96.4 94.0 - [facility] 97.0 % [facility] COHB Art 0.3 % [facility] Comment: Nonsmokers: 0.5-1.5% COHB Smokers: Variable, but usually less than 10% Toxic: 20-30% COHB Lethal: Greater than 60% COHB METHB Art 0.6 <=1.5 % [facility] Na Whole Blood 139 135 - 145 mmol/L [facility] K Whole Blood 4.0 3.5 - 5.0 mmol/L [facility] Comment: Please note: Patients with WBC >100,000 may have falsely elevated Potassium levels. Contact the Clinical Chemistry L aboratory if there are any questions. ICa Whole Blood 1.07 (L) 1.15 - 1.33 mmol/L [facility] Comment: Note: ??Total bilirubin higher than 20 m g/dL may lead to falsely low ionized calcium. CL Whole Blood 110 (H) 98 - 107 mmol/L [facility] Gluc Whole Bld 134 65 - 199 mg/dL [facility] Comment: Diabetes: >=200 mg/dL plus symp toms. Lactate WB 1.6 0.5 - 2.2 mmol/L [facility] FIO2 Art 40 % [facility] PF Ratio Art 270 [facility] Specimen Anatomical Collection Method Collection Time Receive d Time (Source) Location / / Volume Laterality Blood specimen 10/08/2017 6:25 AM 018 6:25 (specimen) EDT AM EDT Juan Alberto Dunlap MD CHEMISTRY ORDERABLES Performing Organization Address City/State/ZIP Code Phon e Number [address] POCT Glucose (10/08/2017 6:04 AM EDT) P athologist Signature POC Glucose 145 65 - 199 [facility] mg/dL [facility] Comment: Supplemental ranges: <140 mg/dL before meals <180 mg/dL all other times of the day Specimen Anatomical Collection Method Collection Time Receive d Time (Source) Location / / Volume Laterality Blood specimen 10/08/2017 6:04 AM 018 6:04 (specimen) EDT AM EDT Juan Alberto Dunlap MD POINT OF CARE TEST ORDERABLE S Performing Organization Address City/State/[place] [address] POCT Glucose (10/08/2017 5:03 AM EDT) athologist Signature POC Glucose 135 65 - 199 [facility] mg/dL [facility] Comment: Supplemental ranges: <140 mg/dL before meals <180 mg/dL all other times of the day Specimen Anatomical Collection Method Collection Time Receive d Time (Source) Location / / Volume Laterality Blood specimen 10/08/2017 5:03 AM 018 5:03 (specimen) EDT AM EDT Juan Alberto Dunlap MD POINT OF CARE TEST ORDERABLE S Performing Organization Address City/State/ZIP Code Phon e Number [address] POCT Glucose (10/08/2017 3:53 AM EDT) athologist Signature POC Glucose 159 65 - 199 [facility]dL [facility] Comment: Supplemental ranges: <140 mg/dL before meals <180 mg/dL all other times of the day Specimen Anatomical Collection Method Collection Time Receive d Time (Source) Location / / Volume Laterality Blood specimen 10/08/2017 3:53 AM 018 3:53 (specimen) EDT AM EDT Juan Alberto Dunlap MD POINT OF CARE TEST ORDERABLE S Performing Organization Address City/[facility]/ZIP Code Phon e Number [address] Scan, Peripheral Blood (10/08/2017 3:50 AM EDT) [facility] Method Time Signature Plat Estimate Decreased [facility] RBC Morphology Abnormal [facility] Komal Cells 1-5 /HPF [facility] Specimen Anatomical Collection Method Collection Time Receive d Time (Source) Location / / Volume Laterality Blood specimen 10/08/2017 3:50 AM 018 4:10 (specimen) EDT AM EDT Resulting Agency Comment Spec In Lab Emily THORNTON HEMATOLOGY ORDERABLES Performing Organization Address City/State/ZIP Code Phon e Number [address] (ABNORMAL) Differential, Automated (10/08/2017 3:50 AM EDT) Patholo gist Method Time Signature Neutrophils % 78.0 % [facility] Neutr Abs (ANC) 14.22 (H) 1.70 - [facility] 6.10 [facility] x10(3)/[facility] LABORATORY Lymphocytes % 5.7 % [facility] Lymphocytes Abs 1.0 0.9 - 3.2 [facility] x10(3)/[facility] LABORATORY Monocytes % 15.1 % [facility] Monocyte Abs 2.8 (H) 0.3 - 0.9 [facility] x10(3)/[facility] LABORATORY Eosinophils % 0.0 % [facility] Eosinophils Abs 0.0 0.0 - 0.4 [facility] x10(3)/[facility] LABORATORY Basophils % 0.2 % [facility] Basophils Abs 0.0 0.0 - 0.1 [facility] x10(3)/[facility] LABORATORY Immature Gran % 1.00 % [facility] Comment: Immature granulocytes(IG's)percentage an d absolute count will include metamyelocytes, myelocytes, and promyelo cytes. Blood smears from CBCs yielding IG's will be scanned manually for concor dance. If this scan disagrees with the automated IG or if promyelocytes are not ed, a manual differential will be performed. Nell Gran Abs 0.18 (H) 0.00 - 0.04 x10(3)/[facility] LABORATORY Specimen Anatomical Collection Method Collection Time Receive d Time (Source) Location / / Volume Laterality Blood specimen 10/08/2017 3:50 AM 018 4:10 (specimen) EDT AM EDT Resulting Agency Comment Spec In Lab Emily THORNTON HEMATOLOGY ORDERABLES Performing Organization Address City/State/[place] [address] (ABNORMAL) Hemogram (10/08/2017 3:50 AM EDT) Analysis Performed At Patho logist Time Signature WBC 18.2 (H) 4.0 - 9.5 [facility] x10(3)/[facility] LABORATORY RBC 4.95 4.58 - [place] 5.54 [facility] x10(6)/[facility] LABORATORY Hemoglobin 14.6 13.7 - [facility] 16.5 gm/dL [facility] Hematocrit 43.1 40.5 - [place]ANN 48.5 % [facility] MCV 87.1 82.9 - [facility] 93.1 [facility] LABORATORY MCH 29.5 27.5 - [place]ANN 32.1 pg [facility] MCHC 33.9 32.0 - [facility] 35.7 gm/dL [facility] Platelets 135 (L) 145 - 357 [facility] x10(3)/[facility] LABORATORY RDWSD 42.5 36.0 - [facility] 45.0 [facility] LABORATORY RDWCV 13.4 11.4 - [facility] 13.8 % [facility] MPV 11.8 7.6 - 12.9 [facility] LABORATORY nRBC % Auto 0.0 % [facility] nRBC Abs Auto 0.000 0.000 - [facility] LUANN 0.000 [facility] x10(3)/[facility] LABORATORY Specimen Anatomical Collection Method Collection Time Receive d Time (Source) Location / / Volume Laterality Blood specimen 10/08/2017 3:50 AM 018 4:10 (specimen) EDT AM EDT Resulting Agency Comment Spec In Lab Emily THORNTON HEMATOLOGY ORDERABLES Performing Organization Address City/State/[place] [address] (ABNORMAL) Electrolytes panel (10/08/2017 3:50 AM EDT) P athologist Signature Sodium 142 135 - 145 [facility] mmol/L [facility] Potassium 4.4 3.5 - 5.0 [facility] mmol/L [facility] Comment: Please note: ??Patients with WBC >100,00 0 may have falsely elevated Potassium levels. ??For accurate Potassium quantif ication in these patients send serum separator tube (gold top) for subsequent determinations. ??Contact the Clinical Chemistry Laboratory if there are any qu estions. Chloride 109 (H) 98 - 107 mmol/L [facility] CO2 19 (L) 22 - 31 mmol/L [facility] Anion Gap 14 5 - 15 mmol/L [facility] Specimen Anatomical Collection Method Collection Time Receive d Time (Source) Location / / Volume Laterality Blood specimen 10/08/2017 3:50 AM 018 4:10 (specimen) EDT AM EDT Resulting Agency Comment Spec In Lab Juan Alberto Dunlap MD CHEMISTRY ORDERABLES Performing Organization Address City/State/[place] [address] (ABNORMAL) Cardiac Enzymes (LEB/CGP) (10/08/2017 3:50 AM EDT) P athologist Signature Troponin-T 1.08 (H) 0.00 - [facility] 0.00 ng/mL [facility] Comment: The 99th percentile for Troponin T is le ss than 0.01 ng/mL, any detectable cTnT concentration using this assay should be considered elevated. According to the third universal definit ion of myocardial infarction the following criteria with a clinical prese ntation consistent with acute myocardial ischemia meets the diagnosis for a myocardial infarction (MS). Detection of a rise and/or fall of [...] additional sample may be indicated. Reference: Third [place] Definition of Myocardial Infarction. Journal of the [place] [employer] 2012;60:1581-98 CK, Total 614 (H) 0 - 200 unit/L [facility] Specimen Anatomical Collection Method Collection Time Receive d Time (Source) Location / / Volume Laterality Blood specimen 10/08/2017 3:50 AM 018 4:10 (specimen) EDT AM EDT Resulting Agency Comment Spec In Lab Juan Alberto Dunlap MD CHEMISTRY ORDERABLES Performing Organization Address [facility]/ZIP [facility] [place] [address] Potassium (10/08/2017 3:50 AM EDT) athologist Signature Potassium 4.4 3.5 - 5.0 [facility] mmol/L [facility] Comment: Please note: ??Patients with [...] Dunlap MD CHEMISTRY ORDERABLES Performing Organization Address [facility] [place] [address] (ABNORMAL) Glucose, fasting (10/08/2017 3:50 AM EDT) P athologist Signature Glucose 175 (H) 65 - 99 [facility] Fasting mg/dL [facility] Comment: ?Fasting* Glucose Interpretive C [...] of Diabetes Mellitus, Position Statement from the [place] [employer]. ??Diabete s Care, Volume 33, Supplement 1, Feb 2009 Specimen Anatomical Collection Method Collection Time Receive d Time (Source) Location / / Volume Laterality Blood specimen 10/08/2017 3:50 AM 018 4:10 (specimen) EDT AM EDT Resulting Agency Comment Spec In Lab Juan Alberto Dunlap MD CHEMISTRY ORDERABLES Performing Organization Address City/[facility] Phon e Number [address] Creatinine (10/08/2017 3:50 AM EDT) athologist Signature Creatinine 0.93 0.80 - [place] 1.50 mg/dL [facility] Estimated GFR 90 >=60 [facility] mL/min/1.7 [facility] 3 ?? HOSPITAL LABORATORY Comment: The eGFR was calculated using the CKD-EP I equation. As with all creatinine based estimates of kidney function, eGFR values calculated with the CKD-EPI equation are not accurate in patients wi th acute kidney failure, extremes of body mass or the acutely ill. [email or web address] eGFR 104 >=60 mL/min/1.73 m?? [facility] Comment: The eGFR was calculated using the CKD-EP I equation. As with all creatinine based estimates of kidney function, eGFR values calculated with the CKD-EPI equation are not accurate in patients wi th acute kidney failure, extremes of body mass or the acutely ill. [email or web address] Specimen Anatomical Collection Method Collection Time Receive d Time (Source) Location / / Volume Laterality Blood specimen 10/08/2017 3:50 AM 018 4:10 (specimen) EDT AM EDT Resulting Agency Comment Spec In Lab Juan Alberto Dunlap MD CHEMISTRY ORDERABLES Performing Organization Address City/[facility]/ZIP [facility] Phon e Number [address] BUN (10/08/2017 3:50 AM EDT) athologist Signature BUN 17 10 - 20 [place] mg/dL [facility] Specimen Anatomical Collection Method Collection Time Receive d Time (Source) Location / / Volume Laterality Blood specimen 10/08/2017 3:50 AM 018 4:10 (specimen) EDT AM EDT Resulting Agency Comment Spec In Lab Juan Alberto Dunlap MD CHEMISTRY ORDERABLES Performing Organization Address City/State/ZIP Code Phon e Number [address] POCT Glucose (10/08/2017 3:08 AM EDT) athologist Signature POC Glucose 156 65 - 199 [place] mg/dL [facility] Comment: Supplemental ranges: <140 mg/dL before meals <180 mg/dL all other times of the day Specimen Anatomical Collection Method Collection Time Receive d Time (Source) Location / / Volume Laterality Blood specimen 10/08/2017 3:08 AM 018 3:08 (specimen) EDT AM EDT Juan Alberto Dunlap MD POINT OF CARE TEST ORDERABLE S Performing Organization Address City/State/ZIP Code Phon e Number [address] POCT Glucose (10/08/2017 1:59 AM EDT) athologist Signature POC Glucose 158 65 - 199 [place] mg/dL [facility] Comment: Supplemental ranges: <140 mg/dL before meals <180 mg/dL all other times of the day Specimen Anatomical Collection Method Collection Time Receive d Time (Source) Location / / Volume Laterality Blood specimen 10/08/2017 1:59 AM 018 1:59 (specimen) EDT AM EDT Juan Alberto Dunlap MD POINT OF CARE TEST ORDERABLE S Performing Organization Address City/State/ZIP Code Phon e Number [address] POCT Glucose (10/08/2017 1:06 AM EDT) athologist Signature POC Glucose 195 65 - 199 [place] mg/dL [facility] Comment: Supplemental ranges: <140 mg/dL before meals <180 mg/dL all other times of the day Specimen Anatomical Collection Method Collection Time Receive d Time (Source) Location / / Volume Laterality Blood specimen 10/08/2017 1:06 AM 018 1:06 (specimen) EDT AM EDT Juan Alberto Dunlap MD POINT OF CARE TEST ORDERABLE S Performing Organization Address City/[facility]/ZIP Code Phon e Number [address] POCT Glucose (10/07/2017 11:52 PM EDT) athologist Signature POC Glucose 195 65 - 199 [facility] mg/dL [facility] Comment: Supplemental ranges: <140 mg/dL before meals <180 mg/dL all other times of the day Specimen Anatomical Collection Method Collection Time Receive d Time (Source) Location / / Volume Laterality Blood specimen 10/07/2017 11:52 8 (specimen) PM EDT 11:52 PM EDT Juan Alberto Dunlap MD POINT OF CARE TEST ORDERABLE S Performing Organization Address City/[facility]/[place] [address] Potassium (10/07/2017 11:50 PM EDT) athologist Signature Potassium 4.5 3.5 - 5.0 [facility] mmol/L [facility] Comment: Please note: ??Patients with [...] Dunlap MD CHEMISTRY ORDERABLES Performing Organization Address City/[facility]/ZIP Code Phon e Number [address] POCT Glucose (10/07/2017 11:01 PM EDT) athologist Signature POC Glucose 177 65 - 199 [place] DON[facility] mg/dL [facility] Comment: Supplemental ranges: <140 mg/dL before meals <180 mg/dL all other times of the day Specimen Anatomical Collection Method Collection Time Receive d Time (Source) Location / / Volume Laterality Blood specimen 10/07/2017 11:01 8 (specimen) PM EDT 11:01 PM EDT Juan Alberto Dunlap MD POINT OF CARE TEST ORDERABLE S Performing Organization Address City/State/ZIP Code Phon e Number [address] POCT Glucose (10/07/2017 9:59 PM EDT) athologist Signature POC Glucose 173 65 - 199 [place] mg/dL [facility] Comment: Supplemental ranges: <140 mg/dL before meals <180 mg/dL all other times of the day Specimen Anatomical Collection Method Collection Time Receive d Time (Source) Location / / Volume Laterality Blood specimen 10/07/2017 9:59 PM 018 9:59 (specimen) EDT PM EDT Juan Alberto Dunlap MD POINT OF CARE TEST ORDERABLE S Performing Organization Address City/[facility]/[place] [address] POCT Glucose (10/07/2017 9:00 PM EDT) athologist Signature POC Glucose 182 65 - 199 PETRA LUANN mg/dL [facility] Comment: Supplemental ranges: <140 mg/dL before meals <180 mg/dL all other times of the day Specimen Anatomical Collection Method Collection Time Receive d Time (Source) Location / / Volume Laterality Blood specimen 10/07/2017 9:00 PM 018 9:00 (specimen) EDT PM EDT Juan Alberto Dunlap MD POINT OF CARE TEST ORDERABLE S Performing Organization Address City/State/[place] [address] POCT Glucose (10/07/2017 7:58 PM EDT) athologist Signature POC Glucose 193 65 - 199 PETRA DONLUANN mg/dL [facility] Comment: Supplemental ranges: <140 mg/dL before meals <180 mg/dL all other times of the day Specimen Anatomical Collection Method Collection Time Receive d Time (Source) Location / / Volume Laterality Blood specimen 10/07/2017 7:58 PM 018 7:58 (specimen) EDT PM EDT Juan Alberto Dunlap MD POINT OF CARE TEST ORDERABLE S Performing Organization Address City/State/[place] [address] (ABNORMAL) POCT Glucose (10/07/2017 6:28 PM EDT) athologist Signature POC Glucose 221 (H) 65 - 199 [facility] Comment: Supplemental ranges: <140 mg/dL before meals <180 mg/dL all other times of the day Specimen Anatomical Collection Method Collection Time Receive d Time (Source) Location / / Volume Laterality Blood specimen 10/07/2017 6:28 PM 018 6:28 (specimen) EDT PM EDT Juan Alberto Dunlap MD POINT OF CARE TEST ORDERABLE S Performing Organization Address City/[facility]/[place] [address] Hemoglobin (10/07/2017 6:20 PM EDT) athologist Signature Hemoglobin 15.8 13.7 - 16.5 [facility] LUANN gm/dL [facility] Specimen Anatomical Collection Method Collection Time Receive d Time (Source) Location / / Volume Laterality Blood specimen 10/07/2017 6:20 PM 018 6:36 (specimen) EDT PM EDT Resulting Agency Comment Spec In Lab Juan Alberto Dunlap MD HEMATOLOGY ORDERABLES Performing Organization Address City/State/[place] [address] Potassium (10/07/2017 6:20 PM EDT) athologist Signature Potassium 3.5 3.5 - 5.0 [facility]/L [facility] Comment: Please note: ??Patients with [...] Organization Address City/State/[place] [address] POCT Glucose (10/07/2017 5:14 PM EDT) P athologist Signature POC Glucose 195 65 - 199 [facility] mg/dL [facility] Comment: Supplemental ranges: <140 mg/dL before meals <180 mg/dL all other times of the day Specimen Anatomical Collection Method Collection Time Receive d Time (Source) Location / / Volume Laterality Blood specimen 10/07/2017 5:14 PM 018 5:14 (specimen) EDT PM EDT Juan Alberto Dunlap MD POINT OF CARE TEST ORDERABLE S Performing Organization Address City/State/[place] [address] (ABNORMAL) BLOOD GAS 2 ARTERIAL (10/07/2017 3:52 PM EDT) Analysis Performed At Patho logist Time Signature pH Art 7.36 7.35 - [facility] 7.45 [facility] pCO2 Art 35 35 - 45 [facility] mmHg [facility] pO2 Art 256 (H) 85 - 104 [facility] mmHg [facility] HCO3 Art 19.2 (L) 20.0 - [facility] 26.0 [facility] mmol/L [facility] BE Art -6.2 (L) -3.0 - 3.0 [facility] mmol/L [facility] Hgb Blood Gas 15.8 13.7 - [facility] 16.5 gm/dL [facility] O2HB Art 97.7 (H) 94.0 - [facility] 97.0 % [facility] COHB Art 0.4 % [facility] Comment: Nonsmokers: 0.5-1.5% COHB Smokers: Variable, but usually less than 10% Toxic: 20-30% COHB Lethal: Greater than 60% COHB METHB Art 0.7 <=1.5 % [facility] Na Whole Blood 140 135 - 145 mmol/L [facility] K Whole Blood 3.3 (L) 3.5 - 5.0 mmol/L [facility] Comment: Please note: Patients with WBC >100,000 may have falsely elevated Potassium levels. Contact the Clinical Chemistry L aboratory if there are any questions. ICa Whole Blood 1.13 (L) 1.15 - 1.33 mmol/L [facility] Comment: Note: ??Total bilirubin higher than 20 m g/dL may lead to falsely low ionized calcium. CL Whole Blood 108 (H) 98 - 107 mmol/L [facility]ORY Gluc Whole Bld 204 (H) 65 - 199 mg/dL [facility] Comment: Diabetes: >=200 mg/dL plus symp toms. Lactate WB 4.7 (Critical) 0.5 - 2.2 mmol/L [facility] Comment: Noted by nautical instrument mechanic. FIO2 Art 100 % [facility] PF Ratio Art 256 [facility] Specimen Anatomical Collection Method Collection Time Receive d Time (Source) Location / / Volume Laterality Blood specimen 10/07/2017 3:52 PM 018 3:52 (specimen) EDT PM EDT Juan Alberto Dunlap MD CHEMISTRY ORDERABLES Performing Organization Address City/State/[place] [address] XR Chest PA or [...] distal aspect. Cardiac device is noted. A [place] catheter terminates at the l ikely position [...] distal aspect. Cardiac device is noted. A [place] catheter terminates at the l ikely position of the proximal pulmonary outflow tract. No pneumothorax. Juan Alberto Dunlap MD IMG DX ORDERABLES EKG 12 Lead (10/07/2017 3:29 PM EDT) [facility] gist Method Time Signature Ventricular rate 87 BPM MUSE SYSTEM Atrial Rate 87 BPM MUSE SYSTEM P-R Interval 178 ms MUSE SYSTEM QRS Duration 114 ms MUSE SYSTEM Q-T Interval 436 ms MUSE SYSTEM QTC Calculated 524 ms MUSE SYSTEM (Bezet) Calculated P [place] 67 degrees MUSE SYSTEM Calculated R [place] 84 degrees MUSE SYSTEM Calculated T [place] 92 degrees MUSE SYSTEM INTERPRETATION Normal sinus rhythm MUSE SYSTEM Inferior infarct (cited on or before 23-FEB-1995) Prolonged QT ACUTE MS / STEMI Abnormal ECG When compared with ECG of 09-AUG-2017 14:43, ST elevation now present in Inferior leads Confirmed by MD Chelsie, Jl Aguilar ([id number]) on 10/07/2017 7:47:3 8 PM Specimen Anatomical [...] Signature pH Art 7.32 (L) 7.35 - [facility] 7.45 [facility] pCO2 Art 41 35 - 45 [facility] LABORATORY pO2 Art 136 (H) 85 - 104 [facility] LABORATORY HCO3 Art 20.9 20.0 - [facility] 26.0 [facility] mmol/L [facility] BE Art -5.2 (L) -3.0 - 3.0 [facility] mmol/L [facility] Hgb Blood Gas 15.4 13.7 - [facility] 16.5 gm/dL [facility] O2HB Art 96.6 94.0 - [facility] 97.0 % [facility] COHB Art 0.8 % [facility] Comment: Nonsmokers: 0.5-1.5% COHB Smokers: Variable, but usually less than 10% Toxic: 20-30% COHB Lethal: Greater than 60% COHB METHB Art 0.6 <=1.5 % [facility]ORATORY Na Whole Blood 140 135 - 145 mmol/L [facility] K Whole Blood 3.1 (L) 3.5 - 5.0 mmol/L [facility]ORY Comment: Please note: Patients with WBC >100,000 may have falsely elevated Potassium levels. Contact the Clinical Chemistry L aboratory if there are any questions. ICa Whole Blood 1.16 1.15 - 1.33 mmol/L [facility] Comment: Note: ??Total bilirubin higher than 20 m g/dL may lead to falsely low ionized calcium. CL Whole Blood 108 (H) 98 - 107 mmol/L [facility] LABORATORY Gluc Whole Bld 179 65 - 199 mg/dL [facility] Comment: Diabetes: >=200 mg/dL plus symp toms. Lactate WB 3.7 (H) 0.5 - 2.2 mmol/L [facility] FIO2 Art 100 % [facility] PF Ratio Art 136 [facility] Specimen Anatomical Collection Method Collection Time Receive d Time (Source) Location / / Volume Laterality Blood specimen 10/07/2017 3:04 PM 018 3:04 (specimen) EDT PM EDT Juan Alberto Dunlap MD CHEMISTRY ORDERABLES Performing Organization Address City/State/[place] [address] (ABNORMAL) BLOOD GAS 2 ARTERIAL (10/07/2017 1:27 PM EDT) Analysis Performed At Patho logist Time Signature pH Art 7.30 (L) 7.35 - [facility] 7.45 [facility] pCO2 Art 48 (H) 35 - 45 [facility] mmHg [facility] pO2 Art 176 (H) 85 - 104 [facility] LABORATORY HCO3 Art 23.1 20.0 - [facility] 26.0 [facility] mmol/L [facility] LAB[facility] BE Art -3.3 (L) -3.0 - 3.0 [facility] mmol/L [facility] Hgb Blood Gas 12.8 (L) 13.7 - [facility] 16.5 gm/dL [facility] O2HB Art 97.9 (H) 94.0 - [facility] 97.0 % [facility] COHB Art 0.5 % [facility] Comment: Nonsmokers: 0.5-1.5% COHB Smokers: Variable, but usually less than 10% Toxic: 20-30% COHB Lethal: Greater than 60% COHB METHB Art 0.3 <=1.5 % [facility] Na Whole Blood 135 135 - 145 mmol/L [facility] K Whole Blood 3.2 (L) 3.5 - 5.0 mmol/L [facility] Comment: Please note: Patients with WBC >100,000 may have falsely elevated Potassium levels. Contact the Clinical Chemistry L aboratory if there are any questions. ICa Whole Blood 1.32 1.15 - 1.33 mmol/L [facility] Comment: Note: ??Total bilirubin higher than 20 m g/dL may lead to falsely low ionized calcium. CL Whole Blood 107 98 - 107 mmol/L [facility] Gluc Whole Bld 187 65 - 199 mg/dL [facility] Comment: Diabetes: >=200 mg/dL plus symp toms. Lactate WB 2.5 (H) 0.5 - 2.2 mmol/L [facility] Specimen Anatomical Collection Method Collection Time Receive d Time (Source) Location / / Volume Laterality Blood specimen 10/07/2017 1:27 PM 018 1:27 (specimen) EDT PM EDT Juan Alberto Dunlap MD CHEMISTRY ORDERABLES Performing Organization Address City/State/[place] [address] (ABNORMAL) Thrombin time (10/07/2017 1:27 PM EDT) P athologist Signature Thrombin Time 18 (H) 10 - 17 [facility] LABORATORY Comment: A prolongation in the thrombin [...] Mathew MD HEMATOLOGY ORDERABLES Performing Organization Address City/[facility]/[place] [address] Fibrinogen (10/07/2017 1:27 PM EDT) P athologist Signature Fibrinogen 233 200 - 393 [facility] mg/dL [facility] Comment: Called by: FRANCOISE, Read back by: Magaly Myers , Date/Time:10/07/17 [...] Mathew MD HEMATOLOGY ORDERABLES Performing Organization Address [facility] Code Phon e Number [address] APTT (10/07/2017 1:27 PM EDT) P athologist Signature PTT 31 25 - 37 sec [facility] Comment: The PTT is NOT [...] Mathew MD HEMATOLOGY ORDERABLES Performing Organization Address City/[facility]/ZIP Code Phon e Number [address] (ABNORMAL) Prothrombin Time (10/07/2017 1:27 PM EDT) P athologist Signature PT 15.1 (H) 9.4 - 12.5 [facility] LABORATORY INR 1.4 [facility] Comment: An INR <2.0 indicates [...] Organization Address City/State/[place] [address] (ABNORMAL) Hemogram (10/07/2017 1:27 PM EDT) P athologist Signature WBC 20.3 (H) 4.0 - 9.5 [facility] x10(3)/[facility] LABORATORY RBC 4.07 (L) 4.58 - [facility] 5.54 [facility] x10(6)/[facility] LABORATORY Hemoglobin 11.8 (L) 13.7 - [facility] 16.5 gm/dL [facility]ORY Hematocrit 36.8 (L) 40.5 - [facility] 48.5 % [facility] Comment: This result has been called to JAMAICA Malik by BRITTNEY VANN on 10 07 2017 at 1341, and has been read back. MCV 90.4 82.9 - 93.1 fL [facility] MCH 29.0 27.5 - 32.1 pg [facility] MCHC 32.1 32.0 - 35.7 gm/dL [facility] Platelets 140 (L) 145 - 357 x10(3)/[facility] LABORATORY RDWSD 42.9 36.0 - 45.0 [facility] LABORATORY RDWCV 13.1 11.4 - 13.8 % [facility] LABORATORY MPV 11.9 7.6 - 12.9 fL [facility] LABORATORY nRBC % Auto 0.0 % [facility] LABORATORY nRBC Abs Auto 0.000 0.000 - 0.000 x10(3)/mcL [facility] LABORATORY Specimen Anatomical Collection Method Collection Time Receive d Time (Source) Location / / Volume Laterality Blood specimen 10/07/2017 1:27 PM 018 1:33 (specimen) EDT PM EDT Resulting Agency Comment Spec In Lab Lynn Mathew MD HEMATOLOGY ORDERABLES Performing Organization Address City/State/[place] [address] (ABNORMAL) BLOOD GAS 2 ARTERIAL (10/07/2017 12:50 PM EDT) Analysis Performed At Patho logist Time Signature pH Art 7.32 (L) 7.35 - [facility] 7.45 [facility] LABORATORY pCO2 Art 46 (H) 35 - 45 [facility] LABORATORY pO2 Art 313 (H) 85 - 104 [facility] LABORATORY HCO3 Art 23.4 20.0 - [facility] 26.0 [facility] mmol/[facility] LABORATORY BE Art -2.7 -3.0 - 3.0 [facility] mmol/L [facility] LABORATORY Hgb Blood Gas 11.1 (L) 13.7 - [facility] 16.5 gm/dL [facility]ORY O2HB Art 98.4 (H) 94.0 - [facility] 97.0 % [facility] LABORATORY COHB Art 0.4 % [facility] Comment: Nonsmokers: 0.5-1.5% COHB Smokers: Variable, but usually less than 10% Toxic: 20-30% COHB Lethal: Greater than 60% COHB METHB Art 0.3 <=1.5 % [facility] LABORATORY Na Whole Blood 129 (L) 135 - 145 mmol/L [facility] K Whole Blood 4.7 3.5 - 5.0 mmol/L [facility] LABORATORY Comment: Please note: Patients with WBC >100,000 may have falsely elevated Potassium levels. Contact the Clinical Chemistry L aboratory if there are any questions. ICa Whole Blood 1.27 1.15 - 1.33 mmol/L [facility] Comment: Note: ??Total bilirubin higher than 20 m g/dL may lead to falsely low ionized calcium. CL Whole Blood 105 98 - 107 mmol/L [facility] LABORATORY Gluc Whole Bld 225 (H) 65 - 199 mg/dL [facility] LABORATORY Comment: Diabetes: >=200 mg/dL plus symp toms. Lactate WB 2.2 0.5 - 2.2 mmol/L [facility] Specimen Anatomical Collection Method Collection Time Receive d Time (Source) Location / / Volume Laterality Blood specimen 10/07/2017 12:50 8 (specimen) PM EDT 12:50 PM EDT Juan Alberto Dunlap MD CHEMISTRY ORDERABLES Performing Organization Address City/State/[place] [address] Platelet count (10/07/2017 12:39 PM EDT) P athologist Signature Platelets 150 145 - 357 [facility] x10(3)/[facility] LABORATORY Plat Immature 6.6 0.0 - 7.4 [facility] % % [facility] LAB[facility]ORY Comment: Limitation of the Immature Platelet Frac tion (IPF)-May be less reliable when the platelet count is less than 73h398/u L due to statistical imprecision. The IPF [...] in a decreased state of production. References: [employer] The Clinical Value of the Immature Platelet Fraction (IPF) in Cell Recovery Document Number [id number] 07/2010 [employer] The Role of the Imm ature Platelet Fraction (IPF) in the Differential Diagnosis of Thrombocytopen ia, Document [id number] V05/02/03 P007/04 Specimen Anatomical Collection Method Collection Time Receive d Time (Source) Location / / Volume Laterality Blood specimen 10/07/2017 12:39 8 (specimen) PM EDT 12:45 PM EDT Resulting Agency Comment Spec In Lab Juan Alberto Dunlap MD HEMATOLOGY ORDERABLES Performing Organization Address City/[facility]/[place] [address] (ABNORMAL) Hemoglobin and Hematocrit, blood (10/07/2017 12:39 PM EDT) P athologist Signature Hemoglobin 10.8 (L) 13.7 - [facility] 16.5 gm/dL [facility] LAB[facility]ORY Hematocrit 32.1 (L) 40.5 - [facility] 48.5 % [facility] Comment: This result has been [...] Dunlap MD HEMATOLOGY ORDERABLES Performing Organization Address City/[facility]/[place] [address] Fibrinogen (10/07/2017 12:39 PM EDT) P athologist Signature Fibrinogen 213 200 - 393 [facility] mg/dL [facility] Comment: Called by: YENI, Read [...] Organization Address City/State/[place] [address] (ABNORMAL) BLOOD GAS 2 ARTERIAL (10/07/2017 12:16 PM EDT) Analysis Performed At Patho logist Time Signature pH Art 7.37 7.35 - [facility] 7.45 [facility] LABORATORY pCO2 Art 41 35 - 45 [facility] LABORATORY pO2 Art 255 (H) 85 - 104 [facility] LABORATORY HCO3 Art 23.4 20.0 - [facility] 26.0 [facility] mmol/L [facility] LABORATORY BE Art -1.9 -3.0 - 3.0 [facility] mmol/L [facility] LABORATORY Hgb Blood Gas 11.8 (L) 13.7 - [facility] 16.5 gm/dL [facility]ORY O2HB Art 98.3 (H) 94.0 - [facility] 97.0 % [facility] LABORATORY COHB Art 0.1 % [facility] Comment: Nonsmokers: 0.5-1.5% COHB Smokers: Variable, but usually less than 10% Toxic: 20-30% COHB Lethal: Greater than 60% COHB METHB Art 0.3 <=1.5 % [facility] LABORATORY Na Whole Blood 132 (L) 135 - 145 mmol/L [facility] K Whole Blood 5.2 (H) 3.5 - 5.0 mmol/L [facility] LABORATORY Comment: Please note: Patients with WBC >100,000 may have falsely elevated Potassium levels. Contact the Clinical Chemistry L aboratory if there are any questions. ICa Whole Blood 0.98 (L) 1.15 - 1.33 mmol/L [facility] Comment: Note: ??Total bilirubin higher than 20 m g/dL may lead to falsely low ionized calcium. CL Whole Blood 105 98 - 107 mmol/L [facility] LABORATORY Gluc Whole Bld 223 (H) 65 - 199 mg/dL [facility] Comment: Diabetes: >=200 mg/dL plus symp toms. Lactate WB 2.1 0.5 - 2.2 mmol/L [facility] Specimen Anatomical Collection Method Collection Time Receive d Time (Source) Location / / Volume Laterality Blood specimen 10/07/2017 12:16 8 (specimen) PM EDT 12:16 PM EDT Juan Alberto Dunlap MD CHEMISTRY ORDERABLES Performing Organization Address City/State/[place] [address] (ABNORMAL) BLOOD GAS 2 ARTERIAL (10/07/2017 11:43 AM EDT) Analysis Performed At Patho logist Time Signature pH Art 7.38 7.35 - [facility] 7.45 [facility] LABORATORY pCO2 Art 36 35 - 45 [facility] LABORATORY pO2 Art 327 (H) 85 - 104 [facility] LABORATORY HCO3 Art 20.9 20.0 - [facility] 26.0 [facility] mmol/L [facility] LABORATORY BE Art -4.3 (L) -3.0 - 3.0 [facility] mmol/L [facility] LABORATORY Hgb Blood Gas 11.7 (L) 13.7 - [facility] 16.5 gm/dL [facility] O2HB Art 98.1 (H) 94.0 - [facility] 97.0 % [facility] LABORATORY COHB Art 0.8 % [facility] Comment: Nonsmokers: 0.5-1.5% COHB Smokers: Variable, but usually less than 10% Toxic: 20-30% COHB Lethal: Greater than 60% COHB METHB Art 0.3 <=1.5 % [facility] LABORATORY Na Whole Blood 129 (L) 135 - 145 mmol/L [facility] K Whole Blood 4.8 3.5 - 5.0 mmol/L [facility] LABORATORY Comment: Please note: Patients with WBC >100,000 may have falsely elevated Potassium levels. Contact the Clinical Chemistry L aboratory if there are any questions. ICa Whole Blood 1.00 (L) 1.15 - 1.33 mmol/L [facility] Comment: Note: ??Total bilirubin higher than 20 m g/dL may lead to falsely low ionized calcium. CL Whole Blood 104 98 - 107 mmol/L [facility] LABORATORY Gluc Whole Bld 218 (H) 65 - 199 mg/dL [facility] LABOR[facility] Comment: Diabetes: >=200 mg/dL plus symp toms. Lactate WB 1.9 0.5 - 2.2 mmol/L [facility] Specimen Anatomical Collection Method Collection Time Receive d Time (Source) Location / / Volume Laterality Blood specimen 10/07/2017 11:43 8 (specimen) AM EDT 11:43 AM EDT Juan Alberto Dunlap MD CHEMISTRY ORDERABLES Performing Organization Address City/State/[place] [address] (ABNORMAL) BLOOD GAS 2 VENOUS (10/07/2017 11:12 AM EDT) [facility] gist Method Time Signature pH Stefan 7.26 7.32 - [facility] (Critical) 7.42 [facility] LABORATORY pCO2 Stefan 45 41 - 51 [facility] LABORATORY pO2 Stefan 55 (H) 25 - 40 [facility] LABORATORY HCO3 Stefan 19.6 mmol/L [facility] BE Stefan -7.5 mmol/L [facility] Hgb Blood Gas 12.5 (L) 13.7 - [facility] 16.5 gm/dL [facility] O2HB Stefan 82.6 % [facility] COHB Stefan 0.9 % [facility] Comment: Nonsmokers: 0.5-1.5% COHB Smokers: Variable, but usually less than 10% Toxic: 20-30% COHB Lethal: Greater than 60% COHB METHB Stefan 0.3 <=1.5 % [facility] LABORATORY Na Whole Blood 134 (L) 135 - 145 mmol/L [facility] K Whole Blood 3.9 3.5 - 5.0 mmol/L [facility] LABORATORY Comment: Please note: Patients with WBC >100,000 may have falsely elevated Potassium levels. Contact the Clinical Chemistry L aboratory if there are any questions. ICa Whole Blood 1.04 (L) 1.15 - 1.33 mmol/L [facility] Comment: Note: ??Total bilirubin higher than 20 m g/dL may lead to falsely low ionized calcium. CL Whole Blood 105 98 - 107 mmol/L [facility] LABORATORY Gluc Whole Bld 227 (H) 65 - 199 mg/dL [facility] Comment: Diabetes: >=200 mg/dL plus symp toms Lactate WB 1.9 0.5 - 2.2 mmol/L [facility] BGas Source Venous [facility] LABORATORY Specimen Anatomical Collection Method Collection Time Receive d Time (Source) Location / / Volume Laterality Blood specimen 10/07/2017 11:12 8 (specimen) AM EDT 11:12 AM EDT Juan Alberto Dunlap MD CHEMISTRY ORDERABLES Performing Organization Address City/State/[place] [address] (ABNORMAL) BLOOD GAS 2 ARTERIAL (10/07/2017 11:10 AM EDT) Analysis Performed At Patho logist Time Signature pH Art 7.32 (L) 7.35 - [facility] 7.45 [facility] LABORATORY pCO2 Art 43 35 - 45 [facility] LABORATORY pO2 Art 389 (H) 85 - 104 [facility] LABORATORY HCO3 Art 21.4 20.0 - [facility] 26.0 [facility] mmol/L [facility] LABORATORY BE Art -4.8 (L) -3.0 - 3.0 [facility] mmol/L [facility] LAB[facility]ORY Hgb Blood Gas 12.6 (L) 13.7 - [facility] 16.5 gm/dL [facility] O2HB Art 98.6 (H) 94.0 - [facility] 97.0 % [facility] LAB[facility]ORY COHB Art 0.3 % [facility] Comment: Nonsmokers: 0.5-1.5% COHB Smokers: Variable, but usually less than 10% Toxic: 20-30% COHB Lethal: Greater than 60% COHB METHB Art 0.3 <=1.5 % [facility] LABORATORY Na Whole Blood 134 (L) 135 - 145 mmol/L [facility] K Whole Blood 4.0 3.5 - 5.0 mmol/L [facility] LABORATORY Comment: Please note: Patients with WBC >100,000 may have falsely elevated Potassium levels. Contact the Clinical Chemistry L aboratory if there are any questions. ICa Whole Blood 1.00 (L) 1.15 - 1.33 mmol/L [facility] Comment: Note: ??Total bilirubin higher than 20 m g/dL may lead to falsely low ionized calcium. CL Whole Blood 106 98 - 107 mmol/L [facility] LABORATORY Gluc Whole Bld 233 (H) 65 - 199 mg/dL [facility]OR[facility]ORY Comment: Diabetes: >=200 mg/dL plus symp toms. Lactate WB 2.4 (H) 0.5 - 2.2 mmol/L [facility]ORY Specimen Anatomical Collection Method Collection Time Receive d Time (Source) Location / / Volume Laterality Blood specimen 10/07/2017 11:10 8 (specimen) AM EDT 11:10 AM EDT Juan Alberto Dunlap MD CHEMISTRY ORDERABLES Performing Organization Address City/State/ZIP Code Phon e Number [place] [id number] (ABNORMAL) BLOOD GAS 2 ARTERIAL (10/07/2017 10:39 AM EDT) Analysis Performed At Patho logist Time Signature pH Art 7.30 (L) 7.35 - [facility] 7.45 [facility]ORY pCO2 Art 40 35 - 45 [facility] mmHg [facility] pO2 Art 259 (H) 85 - 104 [facility] mmHg [facility] HCO3 Art 19.2 (L) 20.0 - [facility] 26.0 [facility] mmol/L [facility] LAB[facility] BE Art -7.1 (L) -3.0 - 3.0 [facility] mmol/L [facility] Hgb Blood Gas 15.4 13.7 - [facility] 16.5 gm/dL [facility] O2HB Art 98.1 (H) 94.0 - [facility] 97.0 % [facility] COHB Art 0.9 % [facility] Comment: Nonsmokers: 0.5-1.5% COHB Smokers: Variable, but usually less than 10% Toxic: 20-30% COHB Lethal: Greater than 60% COHB METHB Art 0.3 <=1.5 % [facility]ORATORY Na Whole Blood 138 135 - 145 mmol/L [facility] K Whole Blood 3.7 3.5 - 5.0 mmol/L [facility] Comment: Please note: Patients with WBC >100,000 may have falsely elevated Potassium levels. Contact the Clinical Chemistry L aboratory if there are any questions. ICa Whole Blood 1.09 (L) 1.15 - 1.33 mmol/L [facility] Comment: Note: ??Total bilirubin higher than 20 m g/dL may lead to falsely low ionized calcium. CL Whole Blood 107 98 - 107 mmol/L [facility]ORATORY Gluc Whole Bld 223 (H) 65 - 199 mg/dL [facility] Comment: Diabetes: >=200 mg/dL plus symp toms. Lactate WB 2.0 0.5 - 2.2 mmol/L [facility] Specimen Anatomical Collection Method Collection Time Receive d Time (Source) Location / / Volume Laterality Blood specimen 10/07/2017 10:39 8 (specimen) AM EDT 10:39 AM EDT Juan Alberto Dunlap MD CHEMISTRY ORDERABLES Performing Organization Address City/State/[place] [address] (ABNORMAL) BLOOD GAS 2 ARTERIAL (10/07/2017 10:27 AM EDT) Analysis Performed At Patho logist Time Signature pH Art 7.33 (L) 7.35 - [facility] 7.45 [facility] LAB[facility]ORY pCO2 Art 40 35 - 45 [facility] LABORATORY pO2 Art 328 (H) 85 - 104 [facility] LABORATORY HCO3 Art 20.4 20.0 - [facility] 26.0 [facility] LAB[facility] BE Art -5.5 (L) -3.0 - 3.0 [facility] mmol/L [facility] Hgb Blood Gas 15.0 13.7 - [facility] 16.5 gm/dL [facility] O2HB Art 98.3 (H) 94.0 - [facility] 97.0 % [facility] COHB Art 0.7 % [facility] Comment: Nonsmokers: 0.5-1.5% COHB Smokers: Variable, but usually less than 10% Toxic: 20-30% COHB Lethal: Greater than 60% COHB METHB Art 0.3 <=1.5 % [facility]ATORY Na Whole Blood 137 135 - 145 mmol/L [facility] K Whole Blood 4.3 3.5 - 5.0 mmol/L [facility] Comment: Please note: Patients with WBC >100,000 may have falsely elevated Potassium levels. Contact the Clinical Chemistry L aboratory if there are any questions. ICa Whole Blood 1.09 (L) 1.15 - 1.33 mmol/L [facility] Comment: Note: ??Total bilirubin higher than 20 m g/dL may lead to falsely low ionized calcium. CL Whole Blood 108 (H) 98 - 107 mmol/L [facility] LABORATORY Gluc Whole Bld 202 (H) 65 - 199 mg/dL [facility] Comment: Diabetes: >=200 mg/dL plus symp toms. Lactate WB 1.8 0.5 - 2.2 mmol/L [facility] Specimen Anatomical Collection Method Collection Time Receive d Time (Source) Location / / Volume Laterality Blood specimen 10/07/2017 10:27 8 (specimen) AM EDT 10:27 AM EDT Juan Alberto Dunlap MD CHEMISTRY ORDERABLES Performing Organization Address City/State/[place] [address] Prepare Coag Factors (Non-Hemophilia) (10/07/2017 10:20 AM EDT) athologist Signature Dispensed? Yes [facility] Specimen Anatomical Collection Method Collection Time Receive d Time (Source) Location / / Volume Laterality Blood specimen 10/07/2017 10:20 8 (specimen) AM EDT 10:20 AM EDT Juan Alberto Dunlap MD BLOOD BANK ORDERABLES Performing Organization Address City/State/[place] [address] (ABNORMAL) BLOOD GAS 2 ARTERIAL (10/07/2017 8:56 AM EDT) Analysis Performed At Patho logist Time Signature pH Art 7.34 (L) 7.35 - [facility] 7.45 [facility] pCO2 Art 45 35 - 45 [facility] mmHg [facility] LAB[facility]ORY pO2 Art 507 (H) 85 - 104 [facility] LABORATORY HCO3 Art 24.1 20.0 - [facility] 26.0 [facility] mmol/L [facility] BE Art -1.7 -3.0 - 3.0 [facility] mmol/L [facility]ORY Hgb Blood Gas 14.5 13.7 - [facility] 16.5 gm/dL [facility] O2HB Art 98.5 (H) 94.0 - [facility] 97.0 % [facility] COHB Art 0.7 % [facility] Comment: Nonsmokers: 0.5-1.5% COHB Smokers: Variable, but usually less than 10% Toxic: 20-30% COHB Lethal: Greater than 60% COHB METHB Art 0.3 <=1.5 % [facility]ATORY Na Whole Blood 138 135 - 145 mmol/L [facility] K Whole Blood 4.2 3.5 - 5.0 mmol/L [facility] Comment: Please note: Patients with WBC >100,000 may have falsely elevated Potassium levels. Contact the Clinical Chemistry L aboratory if there are any questions. ICa Whole Blood 1.11 (L) 1.15 - 1.33 mmol/L [facility] Comment: Note: ??Total bilirubin higher than 20 m g/dL may lead to falsely low ionized calcium. CL Whole Blood 108 (H) 98 - 107 mmol/L [facility] LABORATORY Gluc Whole Bld 112 65 - 199 mg/dL [facility] Comment: Diabetes: >=200 mg/dL plus symp toms. Lactate WB 1.3 0.5 - 2.2 mmol/L [facility] Specimen Anatomical Collection Method Collection Time Receive d Time (Source) Location / / Volume Laterality Blood specimen 10/07/2017 8:56 AM 018 8:56 (specimen) EDT AM EDT Juan Alberto Dunlap MD CHEMISTRY ORDERABLES Performing Organization Address City/[facility]/[place] [address] POCT Glucose (10/07/2017 7:14 AM EDT) P athologist Signature POC Glucose 112 65 - 199 [facility] mg/dL [facility] Comment: Supplemental ranges: <140 mg/dL before meals <180 mg/dL all other times of the day Specimen Anatomical Collection Method Collection Time Receive d Time (Source) Location / / Volume Laterality Blood specimen 10/07/2017 7:14 AM 018 7:14 (specimen) EDT AM EDT Juan Alberto Dunlap MD POINT OF CARE TEST ORDERABLE S Performing Organization Address City/[facility]/ZIP Code Phon e Number [address] Prepare RBC (10/07/2017 6:30 AM EDT) P athologist Signature Dispensed? Yes [facility] Specimen Anatomical Collection Method Collection Time Receive d Time (Source) Location / / Volume Laterality Blood specimen 10/07/2017 6:30 AM 018 6:29 (specimen) EDT AM EDT Resulting Agency Comment Spec In Lab Juan Alberto Dunlap MD BLOOD BANK ORDERABLES Performing Organization Address City/[facility]/[place]IP [place] [address] documented in this encounter Visit Diagnoses Not on filedocumented in this encounter Administered Medications Inactive Administered Medications - up to 3 most recent administrations Medication Order MAR Action Action Date Dose Rate Site acetaminophen (TYLENOL) tablet Given 10/17/2017 12:50 AM EDT 1,0 00 mg 1,000 mg 1,000 mg, Oral, EVERY 6 HOURS SCHEDULED, First dose on 10/08/17 at 1800, Until Discontinued, For pain when taking by mouth , Routine Given 10/15/2017 5:29 AM EDT 1,000 mg Given 10/14/2017 11:21 PM EDT 1,000 mg AMIOdarone (CORDARONE; PACERONE) tablet 200 Given [...] mg, Oral, EVERY EVENING, First dose on 10/08/17 at 1700, Until Discontinued, Routine Given 10/16/2017 4:28 PM EDT 40 mg Given 10/15/2017 5:04 PM EDT 40 mg bisacodyl (DULCOLAX) suppository 10 mg Given 10/10/2017 1:13 PM EDT 10 mg 10 mg, Rectal, DAILY, First dose (after last modification) on Tue10/10/17 at 1245, Until Discontinued, Starting post-op day 3., Routine calcium chloride 100 mg/mL (10 %) inject ion Given 10/07/2017 1:20 PM EDT 500 mg ONCE PRN, Starting on Tue10/07/17 at 1242, Until Tue10/07/17 at 1421, Intra-Operative (Intra-Procedure), Routine Given 10/07/2017 12:42 PM EDT 1 g Cent ral Line cardioplegic solution (PLEGISOL) New Bag 10/07/2017 10:57 AM 204 m Ls Central Line induction solution EDT CONTINUOUS PRN, Starting on Tue10/07/17 at 1057, Until Tue10/07/17 at 1421, Intra-Operative (Intra-Procedure) dilTIAZem (CARDIZEM) 125 mg in New Bag [...] to a maximum dose of 15 mg/hr. electrolyte (pH 7.4) New Bag 10/07/2017 10:45 AM 1,250 mLs Central Line (NORMOSOL-R; PLASMALYTE-A) EDT injection CONTINUOUS PRN, Starting on Tue10/07/17 at 1045, Until Tue10/07/17 at 1421, Intra-Operative (Intra-Procedure) furosemide (LASIX) tablet 20 mg Given 10/18/2017 8:50 AM EDT 20 mg 20 mg, Oral, DAILY, First dose (after last modification) on Tue10/18/17 at 0900, Until Discontinued, Routine gelatin adsorbable 100 Given 10/07/2017 1:58 PM EDT 1 each 19- Surgical Site (GELFOAM) sponge ONCE PRN, Starting on Tue10/07/17 at 1358, Until Tue10/07/17 at 1421, Intra-Operative (Intra-Procedure), Routine gentamicin (GARAMYCIN) Given 10/07/2017 10:15 AM 80 mg 19- Surgical Site injection EDT ONCE PRN, Starting on Tue10/07/17 at 1015, Until Tue10/07/17 at 1421, Intra-Operative (Intra-Procedure), Routine heparin (porcine) injection Given 10/07/2017 12:14 PM 2,000 Units Central Line ONCE PRN, Starting on Tue EDT 10/07/17 at 1045, Until Tue10/07/17 at 1421, Intra-Operative (Intra-Procedure), Routine Given 10/07/2017 10:45 AM EDT 10,000 Units Cent ral Line ipratropium-albuterol (DUONEB) 0.5 mg-3 mg(2.5 mg base)/3 mL nebulizer solution 3 mL 3 mL, Nebulization, EVERY 4 HOURS PRN, S tarting on Tue10/16/17 at 0915, Until Tue10/18/17 at 1137, Wheezing, Routine lidocaine (PF) (XYLOCAINE) 100 Given 10/07/2017 12:41 PM EDT 200 mg Central Line mg/5 mL (2 %) injection ONCE PRN, Starting on Tue10/07/17 at 1241, Until Tue10/07/17 at 1421, Intra-Operative (Intra-Procedure), Routine lidocaine (XYLOCAINE) 10 mg/mL (1 %) inj ection 3 mg 3 mg (0.3 mL), Subcutaneous, ONCE PRN, 1 dose, Startin g on Tue10/09/17 at 1343, Until Tue10/18/17 at 1137, for discomfort with PIV ins ertion, Routine magnesium hydroxide (MILK OF MAGNESIA) oral Given 10/14/2017 4:39 PM EDT 10 mLs suspension 10 mL 10 mL, Oral, DAILY, First dose on Tue10/09/17 at 0900, Until Discontinued, Post-op day 2. Do not use with renal insufficiency., Routine Given 10/13/2017 9:10 AM EDT 10 mLs Given 10/12/2017 9:12 AM EDT 10 mLs magnesium sulfate 4 mEq/mL (50 %) Given 10/07/2017 12:41 PM EDT 2 g Central Line injection ONCE PRN, Starting on Tue10/07/17 at 1241, Until Tue10/07/17 at 1421, Intra-Operative (Intra-Procedure), Routine melatonin tablet 3 mg Given 10/17/2017 9:19 PM EDT 3 mg 3 mg, Oral, NIGHTLY, First dose on Tue10/12/17 at 2100, Until Discontinued, Routine Given 10/16/2017 9:17 PM EDT 3 mg Given 10/15/2017 9:21 PM EDT 3 mg metoprolol tartrate (LOPRESSOR) tablet 5 0 mg Given 10/18/2017 5:16 AM EDT 50 mg 50 mg, Oral, EVERY 8 HOURS SCHEDULED, First dose (after last modification) on 10/15/17 at 1400, Until Discontinued, Hold for HR<50, SBP<90., Routine Given 10/17/2017 9:18 PM EDT 50 mg Given 10/17/2017 2:48 PM EDT 50 mg ondansetron (ZOFRAN) injection 4 mg Given 10/10/2017 [...] Given 10/16/2017 9:17 AM EDT 40 mg sodium bicarbonate 8.4 % (1 Given 10/07/2017 11:47 AM EDT 50 mEq Central Line meq/ml) IV solution ONCE PRN, Starting on Tue10/07/17 at 1115, Until Tue10/07/17 at 1421, Intra-Operative (Intra-Procedure), Routine Given 10/07/2017 11:15 AM EDT 50 mEq Cent ral Line sodium chloride 0.9 % flush 5 mL Given 10/17/2017 9:19 PM EDT 5 mLs 5 mL, Intravenous, EVERY 8 HOURS, First dose on 10/09/17 at 1130, Until Discontinued, Routine Given 10/16/2017 9:17 PM EDT 5 mLs Given 10/15/2017 8:00 PM EDT 5 mLs sodium chloride 0.9 % flush 5 mL Given 10/17/2017 2:47 PM EDT 5 mLs 5 mL, Intravenous, EVERY 12 HOURS, First dose on 10/09/17 at 1400, Until Discontinued, Routine Given 10/14/2017 2:17 PM EDT 5 mLs Given 10/13/2017 2:00 PM EDT 5 mLs sodium chloride 0.9 % flush 5-20 mL 5-20 mL, Intravenous, EVERY 1 MIN PRN, S tarting on Tue10/09/17 at 1343, Until Tu10/18/17 at 1137, flush, Flush pertains t o all indwelling lines. Flush per protocol found in the job aid using the link prov ided on this medication record., Routine tamsulosin (FLOMAX) ER capsule 0.4 mg Given 10/18/2017 8:50 AM EDT 0.4 mg 0.4 mg, Oral, DAILY, First dose on 10/08/17 at 0900, Until Discontinued, DO NOT CRUSH OR OPEN, Routine Given 10/17/2017 8:05 AM EDT 0.4 mg Given 10/16/2017 9:17 AM EDT 0.4 mg thrombin (Bovine) Given 10/07/2017 1:59 PM 20,000 Units 19- Surgical Site (THROMBINAR) kit EDT ONCE PRN, Starting on Tue10/07/17 at 1359, Until Tue10/07/17 at 1421, Intra-Operative (Intra-Procedure) vancomycin (VANCOCIN) injection Given 10/07/2017 10:16 AM EDT 1 g 19- Surgical Site ONCE PRN, Starting on Tue10/07/17 at 1016, Until Tue10/07/17 at 1421, Intra-Operative (Intra-Procedure), Routine warfarin (COUMADIN) daily order reminder Oral, EVERY 24 HOURS, First dose on 10/09/17 at 1400, Until Discontinued, If the daily warfarin order has not been placed , contact the Provider to confirm that the order will be written, the dose is held or discontinue d. warfarin (COUMADIN) tablet 2 mg 2 mg, Oral, ONCE, 1 dose, On Tue10/18/17 at 1700, Rout ine documented in this encounter Active and Recently [...] ED) 0917 (Given - Provider: Jeremias Rubio, RN)2117 (Given - Provider: Isela Vann RN) 200 mg, Oral, 2 TIMES DAILY, First dose on [place] 10/13/17 at 2100, Until Discontinued, Routine AMIOdarone (CORDARONE; PACERONE) tablet 200 mg 0805 (Given - Provider: Emily Russo, CORNELIUS) 0850 (Given - Provider: Emily L Woodw maira, RN) 200 mg, Oral, DAILY, First dose [...] Provider: Emily Russo RN)1640 (Given - Provider: Eimly Russo RN) 20 mg, Oral, 2 TIMES DAILY, First dose o n 10/08/17 at 1700, Until Discontinued, Routine furosemide (LASIX) tablet 20 mg 0850 (Given - Provider: Emily Russo RN) 20 mg, Oral, DAILY, First dose on Tue at 0900, Until Discontinued, Routine ipratropium-albuterol (DUONEB) 0.5 mg-3 mg(2.5 mg base)/3 mL nebulizer solution 3 mL (CANCELED) 0424 (Given - Provider: Isela Vann RN)0900 (Not Given - Provider: Jeremias Rubio [...] Isela Vann RN)1412 (Given - Provider: Jeremias Rubio, CORNELIUS)2116 (Given - Provider: Isela Vann, CORNELIUS) 0653 (Hold - Provider: Isela Vann RN - Reason: Per MD Order - Comment: per JADEN Aguilar HR [phone] (Given - Provider: Emily Russo RN)1448 (Given - Provider: Emily Russo RN)2118 (Given - Provider: Isela Vann, CORNELIUS) 0516 [...] Oral, EVERY 24 HOURS, First dose on [place] 10/09/17 at 1400, If the daily warfarin [...] CORNELIUS) 2.5 mg, Oral, ONCE, 1 dose, [place] 10/16/17 at 1700, Routine Continuous Medication Order [...] Nebulization, EVERY 4 HOURS PRN, S tarting [place] 10/16/17 at 0915, Until Tue10/18/17 at 1137, Wheezing, Routine lidocaine (XYLOCAINE) 10 mg/mL (1 %) injection 3 mg 3 mg (0.3 mL), Subcutaneous, ONCE PRN, 1 dose, Starting Tue10/09/17 at 1343, Until Tue10/18/17 at 1137, [...] Intravenous, EVERY 1 MIN PRN, S tarting Tue10/09/17 at 1343, Until Tue10/18/17 at 1137, [...]
Routine documented in this encounter Care Teams Employee Communications Coordinator Relationship Specialty Start Date End Date Es Clinton PA PCP - General Family Medicine 08/09/17 10/09/19 [address] [place] [address] documented as of this encounter
--- OUTSIDE RECORDS SUMMARY | 2021-10-28 14:13 | XMS_ITS | Encounter Summary ---
:1955 [place] [address] Care Team Providers Name Role Phone Es Clinton Primary Care Provider Encounter Details Date Type Department Care Team Description 09/15/2017 Anesthesia Event Main Operating Room Luis Silveira MD [facility] [place] [address] Mark Jung CRNA [facility] [place] [address] [place] [address] Anesthesia Record Procedure Summary Procedure Name Responsible Anesthesia Start Anesthesia Stop Anesthesiologist Time Time TRANSESOPHAGEAL Everton Silveira MD 09/15/17 1043 09/15/17 1132 ECHOCARDIOGRAM (WRVU 2.55) (N/A ) Events Date Time Event Comment 09/15/2017 1043 AN Verify 1043 Start 1043 An Start Data 1107 Anesthesia Ready 1107 Procedure Start 1128 Procedure Stop 1132 an stop data 1132 Recovery or ICU Handoff Patient care was transferred to the destination unit staff after review of the patient's medica l history, current anesthetic/surgi nnamdi status and plan, according to the Provider Handoff Checklist. 1132 Stop 1243 Name Total Propofol 190 mg ePHEDrine 50 mg lactated Ringers infusion 1,000 mL 0 mL Agents Name O2 Auxiliary Flowmeter 1 Blood No blood administrations on file. Lines, Drains, and Airways Type Details Placement Removal PIV 09/15/17; 1003; 09/15/17 1003 by Patel, 8 1309 by [id number] catheter CORNELIUS Rodríguez , Damaris Thornton RN system; 18 gauge; intradermal injection, tolerated well; 09/15/17; 1309 documented in this encounter Social History Tobacco Use Types Packs/Day Years [...] on file documented as of this encounter OR Notes Anesthesia Postprocedure Evaluation - Everton Silveira MD - 09/15/2017 12:43 PM EDT [facility] [place] Department of Anesthesiology Post-procedure Note Patient: Cristian Miner Procedure Summary Date Anesthesia Start Anesthesia Stop Room / Location 09/15/17 1043 1132 [facility] MINOR SURGERY / [facility] MAIN OR Procedure Diagnosis Surgeon Responsible Provider TRANSESOPHAGEAL ECHOCARDIOGRAM (WRVU 2.55) (N/A ) (mitral regurgiation) Td Ayala MD Yen, Christopher A, MD All Anesthesia Providers: Anesthesiologist: Everton Silveira MD [employer] SUPERVISOR: Alessandro Haney CRNA Most Recent Vitals: 09/15/17 1224 BP: 102/63 Pulse: Resp: Temp: SpO2: 93% Pain Patient Location: PACU/[facility] Level of Consciousness: Awake and Alert Pain Management: Satisfactory Analgesia PONV: None Cardiovascular Status: At Baseline and Hemodynamically Stable Respiratory Status: At Baseline Postoperative Fluid Status: Intravascular EUvolemia Possible Anesthetic Complications: NONE apparent at time of evaluation Final Primary Anesthesia Type: MAC (The anesthetic type performed was the same as planned.) Comments: Comfortable. No questions/concerns regarding anesthetic. Anesthesia Preprocedure Evaluation - Everton Silveira MD - 09/15/2017 7:11 AM EDT Pre-Anesthesia Evaluation for: Cristian mullen 61 y.o. male. Procedure(s): TRANS[facility] Patient Active Problem List Diagnosis ??? Morbid obesity ??? Atrial fibrillation ??? MICHELLE (obstructive sleep apnea) ??? SOB (shortness of breath) ??? Palpitations ??? Mitral regurgitation ??? CAD (coronary artery disease) Past Medical History: Diagnosis Date ??? CAD (coronary artery disease) angioplasty 1980s Past Surgical History: Procedure Laterality Date ??? KNEE ARTHROSCOPY ??? LAPAROTOMY diverticula Social History Substance Use Topics ??? Smoking status: Former Smoker Quit date: 08/17/1995 ??? Smokeless tobacco: Never Used ??? Alcohol use Yes Comment: one a month History Drug Use No No Known Allergies Medications: MAR and/or home medications have been reviewed. Physical Exam: There were no vitals filed for this visit. There is no height or weight on file to calculate BMI. Airway Assessment: Mallampati: II TM distance: >3 FB Neck ROM: full Cardiovascular Assessment: Rhythm: regular Rate: normal (+) murmur Pulmonary Assessment: pulmonary exam normal PE comment: Distant BS Dental Assessment: Misc Assessment: Patient is wearing No contact(s). IV access: Peripheral line Other exam findings: Denies GERD Denies CP/Pressure w 4 METs TTE (07/21/17): LVEF 45-50%, inf wall HK, mod-sev MR, normal RV function, PASP 20-30. Cardiac cath (08/16/17)_: Two vessel coronary artery disease (LCX and RCA) * Mild pulmonary hypertension * Elevated pulmonary capillary wedge pressure * Decreased cardiac output Anesthesia Plan: ASA 3 MAC, with a(n) intravenous induction 61yo obese M w h/o MICHELLE (CPAP), CAD (s/p angioplasty 1980s; cath in 07/2017), parox AFib, mod/sev MR presenting for JAYLON. Plan MAC w GA backup. Risks/benefits discussed with patient including, but not limited to, dental/airway/lip injury, vascular injury, nerve injury, eye injury, awareness, adverse drugreactions, among others. All questions answered to his satisfaction. Region - Other Informed Consent: Anesthetic plan and risks discussed with patient. Use of blood products discussed with patient who consented to blood products. Plan discussed with R[employer]ING [employer] SUPERVISOR. PAT Staff Note documented in this encounter Plan of Treatment Upcoming Encounters Date Type Specialty Care Team Description 11/11/2021 Office Visit Nephrology Jonn Zuniga MD [facility] NEPHROLOGY [place], [place] [address] (Wo rk) documented as of this encounter Visit Diagnoses Not on filedocumented in this encounter Administered Medications Inactive Administered Medications - up to 3 most recent administrations Medication Order MAR Action Action Date Dose Rate Site ePHEDrine 5 mg/mL multi-dose Given 09/15/2017 11:27 AM EDT 5 mg injection PRN, Starting on Nerissa 09/15/17 at 1100, Until Nerissa 09/15/17 at 1132, Anesthesia Intra-op, Routine Given 09/15/2017 11:26 AM EDT 15 mg Given 09/15/2017 11:23 AM EDT 10 mg propofol (DIPRIVAN) 10 mg/mL bolus injection Given 11:27 AM EDT 20 mg (Anesthesia) PRN, Starting on Nerissa 09/15/17 at 1100, Until Nerissa 09/15/17 at 1132, Anesthesia Intra-op Given 09/15/2017 11:23 AM EDT 20 mg Given 09/15/2017 11:06 AM EDT 110 mg documented in this encounter Care Teams Assembly Hand Relationship Specialty Start Date End Date Es Clinton PA PCP - General Family Medicine 08/09/17 10/09/19 [address] [place] [address] documented as of this encounter
--- OUTSIDE RECORDS SUMMARY | 2021-10-28 14:13 | XMS_ITS | Encounter Summary ---
:1955 Author Organization [facility] [place] [address] Care Team Providers Name Role Phone Es Clinton Primary Care Provider Reason for Referral Diagnostic Test (Routine) - Closed Specialty Diagnoses / Procedures Referred By Contact Refer red To Contact Cardiology Diagnoses Coronary artery disease, angina presence unspecified, unspecified vessel or lesion type, unspecified whether [place] or transplanted heart Sulma Gill MD [facility] Non-Inv Card Lab Procedures Transesophageal Echocardiogram (CARRILLO) [facility] [place] [address] [place] [address] Fax: Referral ID Status Reason Start Date Expiration Date Visits V isits Requested Authorized [id number] Closed Specialty 09/09/2017 12/08/2017 1 1 Service Requested Encounter Details Date Type Department Care Team Description 09/15/2017 Hospital Encounter Same Day Program at [facility] Coronary artery disease, angina presence unspecified, unspecified vessel or lesion type, unspecified whether [place] or transplanted heart; Petra Malik MD Non-rheumatic mitral regurgitation [facility] [address] [id number] [phone] Social History Tobacco Use Types Packs/Day Years [...] 09/15/2017 10:38 AM EDT Patient Name: Cristian Miner Patient Age: 61 y.o. Birthdate: 1955 Admit date: 09/15/2017 Attending Physician: Demetrius Abbasi MD Patient seen in same day. No change in status since last visit. Patient understands he is here todayfor a tranesophageal echocardiogram to assess severity of his mitral regurgitation in preporation for possible surgical planning. Patient had a TTE at [facility] that showed moderate to severe MR. [...] will proceed as planned. Ankur García MD [employer] [id number] documented in this encounter Plan of Treatment Upcoming Encounters Date Type Specialty Care Team Description 11/11/2021 Office Visit Nephrology Jonn Zuniga MD [facility] NEPHROLOGY DEPT [place], [place] [address] (Wo rk) Scheduled Orders Name [...] unspecified vessel or lesion type, unspecified whether [place] or transplanted heart TRANSESOPHAGEAL 09/15/2017 10:43 mitral [...] 2:00 PM EDT Procedure: ?Transesophageal Echocardiogram Patient: ?MATILDA ANDERSON R ? (Age): 1955(61y) Med Rec#: ? [id number] ?Sex: ?M ? Site Loc: ? [facility] ?Ht / Wt: ??175(cm)/126(kg) Pt. Loc: ?PACU ?BSA: ?2.37 Study Date: ?? 09/15/2017 ?Pt. Type: Tape: ? Referring: SULMA GILL S Reading: Td Ayala ([id number]) Foreclosure Clerk: Ayden Mckenzie Foreclosure Clerk: Ankur García ([id number]) Diagnosis: *Nonrheumatic mitral (valve) insufficie ncy (I34.0) [...] ?The CARRILLO probe was passed by the fl rdiologist after the patient was sedated with [...] ? 09/15/2017 13:59:58 Images reviewed and interpretation francisca cardoza [facility] Cardiac Ultrasound Laboratory Procedure Note Td Ayala MD - 09/15/2017Forma tting of this note might be different from the original. Procedure: Transesophageal Echocardiogra m Patient: MATILDA DACOSTA(Age): 8(61y) Med Rec#: [id number] Sex: M Site Loc: [facility] Ht / Wt: 175(cm)/126(kg) Pt. Loc: PACU BSA: 2.37 Study Date: 09/15/2017 Pt. Type: Tape: Referring: SULMA GILL S Reading: Td Ayala ([id number]) Foreclosure Clerk: Ayden Mckenzie Foreclosure Clerk: Ankur García ([id number]) Diagnosis: *Nonrheumatic mitral (valve) insufficie ncy (I34.0) [...] 58 Images reviewed and interpretation verif ied [facility] Cardiac Ultrasound Laboratory Shaun Sainz MD ECHO ORDERABLES POCT Glucose (09/15/2017 10:25 AM EDT) P athologist Signature POC Glucose 99 65 - [facility] mg/dL [facility] Comment: Supplemental ranges: <140 mg/dL before meals <180 mg/dL all other times of the day Specimen Anatomical Collection Method Collection Time Receive d Time (Source) Location / / Volume Laterality Blood specimen 09/15/2017 10:25 8 (specimen) AM EDT 10:25 AM EDT Demetrius Abbasi MD POINT OF CARE TEST ORDERABLE S Performing Organization Address City/State/[place] [address] documented in this encounter Visit Diagnoses Diagnosis Coronary artery disease, angina presence unspecified, unspecified vessel or lesion type, unspecified whether [place] or [place] heart Non-rheumatic mitral regurgitation Mitral valve disorders documented in this encounter Administered Medications Inactive [...] 1239, Day of Surgery (Day of Procedure) documented in this encounter Active and Recently [...] rocedure) documented in this encounter Care Teams Section Leader And Machine Setter Relationship Specialty Start Date End Date Es Clinton PA PCP - General Family Medicine 08/09/17 10/09/19 [address] [place] [address] documented as of this encounter
--- OUTSIDE RECORDS SUMMARY | 2021-10-28 14:13 | XMS_ITS | Encounter Summary ---
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 Signature PT 23.5 (H) 9.4 - 12.5 [facility] LABORATORY INR 2.1 [facility] Dunlap MD HEMATOLOGY ORDERABLES Performing Organization Address City/[facility] [place] [address] Potassium (10/15/2017 3:17 AM EDT) P athologist Signature Potassium 4.6 3.5 - 5.0 [facility] mmol/L [facility]ORY Comment: Please note: ??Patients with WBC [...] Dunlap MD CHEMISTRY ORDERABLES Performing Organization Address City/[facility] [place] [address] (ABNORMAL) Prothrombin Time (10/14/2017 12:05 PM EDT) P athologist Signature PT 21.7 (H) 9.4 - 12.5 [facility] LABORATORY INR 1.9 [facility] Dunlap MD HEMATOLOGY ORDERABLES Performing Organization Address City/[facility]/ZIP [place] [address] Potassium (10/14/2017 12:05 PM EDT) P athologist Signature Potassium 4.4 3.5 - 5.0 [facility] mmol/L [facility]ATORY Comment: Please note: ??Patients with WBC [...] Dunlap MD CHEMISTRY ORDERABLES Performing Organization Address City/[facility]/ZIP [place] [address] (ABNORMAL) Prothrombin Time (10/13/2017 8:39 AM EDT) P athologist Signature PT 25.5 (H) 9.4 - 12.5 [facility] LABORATORY INR 2.3 [facility] [...] Dunlap MD HEMATOLOGY ORDERABLES Performing Organization Address City/[facility]/ZIP Code Phon e Number [address] Potassium (10/13/2017 8:39 AM EDT) P athologist Signature Potassium 3.7 3.5 - 5.0 [facility] mmol/L [facility] Comment: Please note: ??Patients with WBC [...] Dunlap MD CHEMISTRY ORDERABLES Performing Organization Address [facility] Phon e Number [address] EKG 12 Lead (10/12/2017 11:42 AM EDT) Component Value Ref Range Test Analysis Performed Pathologis t Method Time At Signature Ventricular rate 69 BPM MUSE SYSTEM Atrial Rate 69 BPM MUSE SYSTEM P-R Interval 180 ms MUSE SYSTEM QRS Duration 112 ms MUSE SYSTEM Q-T Interval 496 ms MUSE SYSTEM QTC Calculated 531 ms MUSE SYSTEM (Bezet) Calculated P Kiester 41 degrees MUSE SYSTEM Calculated R Kiester 55 degrees MUSE SYSTEM Calculated T Kiester 21 degrees MUSE SYSTEM INTERPRETATION Normal sinus rhythm MUSE SYSTEM Low voltage QRS Inferior infarct (cited on or before 23-FEB-1995) Prolonged QT Abnormal ECG When compared with ECG of 11-OCT-2017 17:08, Sinus rhythm has replaced Atrial fibrillation Confirmed by MD BRONWYN, MANDI ([id number]) on 10/12/2017 2:54:39 PM Specimen Anatomical Collection Method Collection Time Receive d Time (Source) Location / / Volume Laterality 10/12/2017 11:42 10/12/2017 2:54 AM EDT PM EDT Jamaica Hough MD ECG ORDERABLES Performing Organization Address City/[facility]/ZIP Code Phon e Number MUSE SYSTEM CARDIOVERSION-OR [...] Signature PT 30.9 (H) 9.4 - 12.5 [facility] LABORATORY INR 2.8 [facility] Dunlap MD HEMATOLOGY ORDERABLES Performing Organization Address City/[facility]/ZIP [place] [address] Potassium (10/12/2017 5:18 AM EDT) P athologist Signature Potassium 3.9 3.5 - 5.0 [facility] mmol/L [facility] Comment: Please note: ??Patients with WBC [...] Dunlap MD CHEMISTRY ORDERABLES Performing Organization Address City/[facility]/ZIP [place] [address] EKG 12 Lead (10/11/2017 5:08 PM EDT) Component Value Ref Range Test Analysis Performed Pathologis t Method Time At Signature Ventricular rate 82 BPM MUSE SYSTEM Atrial Rate 101 BPM MUSE SYSTEM QRS Duration 112 ms MUSE SYSTEM Q-T Interval 428 ms MUSE SYSTEM QTC Calculated 500 ms MUSE SYSTEM (Bezet) Calculated R Kiester 66 degrees MUSE SYSTEM Calculated T Kiester 42 degrees MUSE SYSTEM INTERPRETATION Atrial fibrillation [...] (ABNORMAL) Differential, Automated (10/11/2017 11:38 AM EDT) [facility] gist Method Time Signature Neutrophils % 81.5 % [facility] LABORATORY Neutr Abs (ANC) 7.59 (H) 1.70 - [facility] 6.10 [facility] x10(3)/[facility] LABORATORY Lymphocytes % 9.4 % [facility] LABORATORY Lymphocytes Abs 0.9 0.9 - 3.2 [facility] x10(3)/[facility] LABORATORY Monocytes % 7.2 % [facility] LABORATORY Monocyte Abs 0.7 0.3 - 0.9 [facility] x10(3)/[facility] LABORATORY Eosinophils % 0.4 % [facility] LABORATORY Eosinophils Abs 0.0 0.0 - 0.4 [facility] x10(3)/[facility] LABORATORY Basophils % 0.4 % [facility] LABORATORY Basophils Abs 0.0 0.0 - 0.1 [facility] x10(3)/[facility] LABORATORY Immature Gran % 1.10 % [...] Gran Abs 0.10 (H) 0.00 - 0.04 x10(3)/[facility] LABORATORY Specimen Anatomical Collection Method Collection Time Receive d Time (Source) Location / / Volume Laterality Blood specimen 10/11/2017 11:38 8 (specimen) AM EDT 12:20 PM EDT Resulting Agency Comment Spec In Lab Emily THORNTON HEMATOLOGY ORDERABLES Performing Organization Address City/State/[place] [address] (ABNORMAL) Hemogram (10/11/2017 11:38 AM EDT) Analysis Performed At Patho logist Time Signature WBC 9.3 4.0 - 9.5 [facility] x10(3)/[facility] LABORATORY RBC 4.13 (L) 4.58 - [place] 5.54 [facility] x10(6)/[facility] LABORATORY Hemoglobin 12.2 (L) 13.7 - [facility] 16.5 gm/dL [facility] LABORATORY Hematocrit 36.8 (L) 40.5 - [place] 48.5 % [facility] LABORATORY MCV 89.1 82.9 - [facility] 93.1 [facility] LABORATORY MCH 29.5 27.5 - [place] [facility] 32.1 pg [facility] LABORATORY MCHC 33.2 32.0 - [place] 35.7 gm/dL [facility] LABORATORY Platelets 141 (L) 145 - 357 [facility] x[facility](3[facility] LABORATORY RDWSD 43.3 36.0 - [facility] 45.0 [facility] LABORATORY RDWCV 13.3 11.4 - [facility] 13.8 % [facility] LABORATORY MPV 12.4 7.6 - 12.9 [facility] nRBC % Auto 0.0 % [facility] LABORATORY nRBC Abs Auto 0.000 0.000 - [facility] 0.000 [facility] x10(3)/[facility] LABORATORY Specimen Anatomical Collection Method Collection Time Receive d Time (Source) Location / / Volume Laterality Blood specimen 10/11/2017 11:38 8 (specimen) AM EDT 12:20 PM EDT Resulting Agency Comment Spec In Lab Emily THORNTON HEMATOLOGY ORDERABLES Performing Organization Address City/State/[place] [address] Heparin (unfractionated) Level (10/11/2017 11:38 AM EDT) P athologist Signature Heparin UFH 0.07 IU/mL [facility] LABORATORY Comment: Guidelines for therapeutic unfractionate d [...] Organization Address City/State/[place] [address] Potassium (10/11/2017 6:14 AM EDT) athologist Signature Potassium 4.3 3.5 - 5.0 [facility] mmol/L [facility] LABORATORY Comment: Please note: ??Patients with WBC [...] Organization Address City/State/[place] [address] (ABNORMAL) Prothrombin Time (10/11/2017 6:14 AM EDT) P athologist Signature PT 28.1 (H) 9.4 - 12.5 [facility] LABORATORY INR 2.5 [facility] [...] Dunlap MD HEMATOLOGY ORDERABLES Performing Organization Address City/[facility]/[place] [address] (ABNORMAL) Differential, Automated (10/10/2017 10:53 AM EDT) Patholo gist Method Time Signature Neutrophils % 85.5 % [facility] LABORATORY Neutr Abs (ANC) 13.63 (H) 1.70 - [facility] 6.10 [facility] x10(3)/[facility] LABORATORY Lymphocytes % 4.6 % [facility] LABORATORY Lymphocytes Abs 0.7 (L) 0.9 - 3.2 [facility] x10(3)/[facility] LABORATORY Monocytes % 8.5 % [facility] LABORATORY Monocyte Abs 1.4 (H) 0.3 - 0.9 [facility] x10(3)/[facility] LABORATORY Eosinophils % 0.1 % [facility] LABORATORY Eosinophils Abs 0.0 0.0 - 0.4 [facility] x10(3)/[facility] LABORATORY Basophils % 0.4 % [facility] LABORATORY Basophils Abs 0.1 0.0 - 0.1 [facility] x10(3)/[facility] LABORATORY Immature Gran % 0.90 % [...] Gran Abs 0.14 (H) 0.00 - 0.04 x10(3)/[facility] LABORATORY Specimen Anatomical Collection Method Collection Time Receive d Time (Source) Location / / Volume Laterality Blood specimen 10/10/2017 10:53 8 (specimen) AM EDT 11:06 AM EDT Resulting Agency Comment Spec In Lab Td THORNTON HEMATOLOGY ORDERABLES Performing Organization Address City/State/[place] [address] (ABNORMAL) Hemogram (10/10/2017 10:53 AM EDT) Analysis Performed At Patho logist Time Signature WBC 15.9 (H) 4.0 - 9.5 [facility] x10(3)/[facility] LABORATORY RBC 4.21 (L) 4.58 - [facility] 5.54 [facility] x10(6)/[facility] LABORATORY Hemoglobin 12.3 (L) 13.7 - [facility] 16.5 gm/dL [facility] LABORATORY Hematocrit 36.6 (L) 40.5 - [facility] 48.5 % [facility] LABORATORY MCV 86.9 82.9 - [facility] 93.1 [facility] LABORATORY MCH 29.2 27.5 - [facility] 32.1 [facility] LABORATORY MCHC 33.6 32.0 - [facility] 35.7 gm/dL [facility] LABORATORY Platelets 106 (L) 145 - 357 [facility] x10(3)/[facility] LABORATORY RDWSD 42.9 36.0 - [place] [place] 45.0 [facility] LABORATORY RDWCV 13.4 11.4 - [facility] 13.8 % [facility] LABORATORY MPV 12.4 7.6 - 12.9 [facility] LABORATORY nRBC % Auto 0.0 % [facility] LABORATORY nRBC Abs Auto 0.000 0.000 - [place] 0.000 [facility] x10(3)/[facility] LABORATORY Specimen Anatomical Collection Method Collection Time Receive d Time (Source) Location / / Volume Laterality Blood specimen 10/10/2017 10:53 8 (specimen) AM EDT 11:06 AM EDT Resulting Agency Comment Spec In Lab Td THORNTON HEMATOLOGY ORDERABLES Performing Organization Address City/[facility]/ZIP [place] [address] (ABNORMAL) Prothrombin Time (10/10/2017 10:53 AM EDT) P athologist Signature PT 20.1 (H) 9.4 - 12.5 [facility] LABORATORY INR 1.8 [facility] [...] Organization Address City/State/ZIP [place] [address] (ABNORMAL) Basic Metabolic Panel (non-fasting) (10/10/2017 10:53 AM EDT) P athologist Signature Glucose Lvl 136 65 - 199 [facility] mg/dL [facility] LABORATORY Comment: Diabetes: >=200 mg/dL plus symp toms BUN 21 (H) 10 - 20 mg/dL [facility] LABORATORY Creatinine 0.68 (L) 0.80 - 1.50 mg/dL [facility] LABORATORY Sodium 132 (L) 135 - 145 mmol/L [facility] LABORATORY Potassium 3.9 3.5 - 5.0 mmol/L [facility] LABORATORY Comment: Please note: ??Patients with [...] Anion Gap 11 5 - 15 mmol/L [facility] LABORATORY Calcium 8.2 (L) 8.5 - 10.5 mg/dL [facility] LABORATORY Estimated GFR 105 >=60 mL/min/1.73 m?? [facility] LABORATORY Comment: The eGFR was calculated using the CKD-EP I equation. As with all creatinine based estimates of kidney function, eGFR values calculated with the CKD-EPI equation are not accurate in patients wi th acute kidney failure, extremes of body mass or the acutely ill. [email or web address] eGFR 121 >=60 mL/min/1.73 m?? [facility] LABORATORY Comment: The eGFR was calculated using the CKD-EP I equation. As with all creatinine based estimates of kidney function, eGFR values calculated with the CKD-EPI equation are not accurate in patients wi th acute kidney failure, extremes of body mass or the acutely ill. [email or web address] PUR[facility]LLnkf Specimen Anatomical Collection Method Collection Time Receive d Time (Source) Location / / Volume Laterality Blood specimen 10/10/2017 10:53 8 (specimen) AM EDT 11:06 AM EDT Resulting Agency Comment Spec In Lab Juan Alberto Dunlap MD CHEMISTRY ORDERABLES Performing Organization Address City/State/[place] [address] XR Chest PA & [...] original. EXAMINATION: XR CHEST PA AND LATERAL ([employer]) CLINICAL HISTORY: s/p mvr TECHNIQUE: PA and [...] Signature POC Glucose 125 65 - 199 [place] mg/dL [facility] LABORATORY Comment: Supplemental ranges: <140 mg/dL before meals <180 mg/dL all other times of the day Specimen Anatomical Collection Method Collection Time Receive d Time (Source) Location / / Volume Laterality Blood specimen 10/09/2017 8:27 AM 018 8:27 (specimen) EDT AM EDT Juan Alberto Dunlap MD POINT OF CARE TEST ORDERABLE S Performing Organization Address City/[facility]/ZIP Code Phon e Number [address] POCT Glucose (10/09/2017 3:54 AM EDT) athologist Signature POC Glucose 127 65 - 199 [place] mg/dL [facility] LABORATORY Comment: Supplemental ranges: <140 mg/dL before meals <180 mg/dL all other times of the day Specimen Anatomical Collection Method Collection Time Receive d Time (Source) Location / / Volume Laterality Blood specimen 10/09/2017 3:54 AM 018 3:54 (specimen) EDT AM EDT Juan Alberto Dunlap MD POINT OF CARE TEST ORDERABLE S Performing Organization Address City/State/ZIP [place] [address] Potassium (10/09/2017 3:50 AM EDT) athologist Signature Potassium 4.2 3.5 - 5.0 [facility] mmol/L [facility] LABORATORY Comment: Please note: ??Patients with WBC [...] Dunlap MD CHEMISTRY ORDERABLES Performing Organization Address [facility] [place] [address] (ABNORMAL) Prothrombin Time (10/09/2017 3:50 AM EDT) P athologist Signature PT 15.7 (H) 9.4 - 12.5 [facility] LABORATORY INR 1.4 [facility] [...] Dunlap MD HEMATOLOGY ORDERABLES Performing Organization Address City/[facility] Phon e Number [place] [id number]OS[address] POCT Glucose (10/08/2017 11:26 PM EDT) P athologist Signature POC Glucose 111 65 - 199 [facility] mg/dL [facility] LABORATORY Comment: Supplemental ranges: <140 mg/dL before meals <180 mg/dL all other times of the day Specimen Anatomical Collection Method Collection Time Receive d Time (Source) Location / / Volume Laterality Blood specimen 10/08/2017 11:26 201 8 (specimen) PM EDT 11:26 PM EDT Juan Alberto Dunlap MD POINT OF CARE TEST ORDERABLE S Performing Organization Address City/[facility]/ZIP Code Phon e Number [address] POCT Glucose (10/08/2017 7:54 PM EDT) athologist Signature POC Glucose 130 65 - 199 [place] mg/dL [facility] LABORATORY Comment: Supplemental ranges: <140 mg/dL before meals <180 mg/dL all other times of the day Specimen Anatomical Collection Method Collection Time Receive d Time (Source) Location / / Volume Laterality Blood specimen 10/08/2017 7:54 PM 018 7:54 (specimen) EDT PM EDT Juan Alberto Dunlap MD POINT OF CARE TEST ORDERABLE S Performing Organization Address City/[facility]/ZIP [place] [address] Potassium (10/08/2017 7:50 PM EDT) athologist Signature Potassium 4.4 3.5 - 5.0 [place] mmol/L [facility] LABORATORY Comment: Please note: ??Patients with WBC [...] Dunlap MD CHEMISTRY ORDERABLES Performing Organization Address City/[facility]/ZIP Code Phon e Number [address] POCT Glucose (10/08/2017 6:38 PM EDT) athologist Signature POC Glucose 104 65 - 199 [place] mg/dL [facility] LABORATORY Comment: Supplemental ranges: <140 mg/dL before meals <180 mg/dL all other times of the day Specimen Anatomical Collection Method Collection Time Receive d Time (Source) Location / / Volume Laterality Blood specimen 10/08/2017 6:38 PM 018 6:38 (specimen) EDT PM EDT Juan Alberto Dunlap MD POINT OF CARE TEST ORDERABLE S Performing Organization Address City/[facility]/ZIP Code Phon e Number [address] POCT Glucose (10/08/2017 2:56 PM EDT) athologist Signature POC Glucose 117 65 - 199 [facility]/dL [facility] LABORATORY Comment: Supplemental ranges: <140 mg/dL before meals <180 mg/dL all other times of the day Specimen Anatomical Collection Method Collection Time Receive d Time (Source) Location / / Volume Laterality Blood specimen 10/08/2017 2:56 PM 018 2:56 (specimen) EDT PM EDT Juan Alberto Dunlap MD POINT OF CARE TEST ORDERABLE S Performing Organization Address City/[facility]/ZIP [place] [address] (ABNORMAL) Potassium (10/08/2017 11:18 AM EDT) P athologist Signature Potassium 5.3 (H) 3.5 - 5.0 [facility] mmol/L [facility] LABORATORY Comment: Please note: ??Patients with WBC [...] Dunlap MD CHEMISTRY ORDERABLES Performing Organization Address City/[facility]/ZIP Code Phon e Number [address] (ABNORMAL) Prothrombin Time (10/08/2017 11:18 AM EDT) athologist Signature PT 14.3 (H) 9.4 - 12.5 [facility] LABORATORY INR 1.3 [facility] Dunlap MD HEMATOLOGY ORDERABLES Performing Organization Address City/[facility]/ZIP [place] [address] POCT Glucose (10/08/2017 11:04 AM EDT) athologist Signature POC Glucose 158 65 - 199 [facility] mg/dL [facility] LABORATORY Comment: Supplemental ranges: <140 mg/dL before meals <180 mg/dL all other times of the day Specimen Anatomical Collection Method Collection Time Receive d Time (Source) Location / / Volume Laterality Blood specimen 10/08/2017 11:04 8 (specimen) AM EDT 11:04 AM EDT Juan Alberto Dunlap MD POINT OF CARE TEST ORDERABLE S Performing Organization Address City/State/ZIP Code Phon e Number [address] POCT Glucose (10/08/2017 10:34 AM EDT) athologist Signature POC Glucose 140 65 - 199 [facility] mg/dL [facility] LABORATORY Comment: Supplemental ranges: <140 mg/dL before meals <180 mg/dL all other times of the day Specimen Anatomical Collection Method Collection Time Receive d Time (Source) Location / / Volume Laterality Blood specimen 10/08/2017 10:34 8 (specimen) AM EDT 10:34 AM EDT Juan Alberto Dunlap MD POINT OF CARE TEST ORDERABLE S Performing Organization Address City/State/ZIP [place] [address] Urinalysis Microscopic Exam (10/08/2017 [...] Organization Address City/State/[place] [address] (ABNORMAL) Urinalysis with reflex Culture (10/08/2017 10:12 AM EDT) Patholo gist Method Time Signature Glucose UA Negative Negative [facility] mg/dL [facility] LABORATORY Protein UA 30 (A) Negative [facility] mg/dL [facility] LABORATORY Bilirubin UA Negative Negative [facility] mg/dL [facility] LABORATORY Comment: Clinical correlation required for positi ve Urine Bilirubin results as false positive may occur with some drugs and d rug related products. If a false positive is suspected a serum total bili watt should be considered if clinically indicated. Urobilinogen UA Normal Normal mg/dL [facility] LABORATORY pH UA 5.0 5.0 - 8.0 [facility] LABORATORY Blood UA Negative Negative mg/dL [facility] LABORATORY Ketones UA Negative Negative mg/dL [facility] LAB[facility] Nitrite UA Negative Negative [facility] LABORATORY Leukocytes UA Negative Negative [facility] LABORATORY Appearance UA Turbid (A) Clear [facility] LABORATORY Spec [place] UA >1.035 (H) 1.002 - 1.030 [facility] LABORATORY Color UA Yellow Yellow [facility] LABORATORY Culture Reflexed No [facility] LABORATORY Specimen (Source) Anatomical Collection Method Collection Time Re ceived Time Location / / Volume Laterality Urine specimen 10/08/2017 10:12 8 obtained via AM EDT 10:29 AM EDT indwelling urinary catheter (specimen) Resulting Agency Comment Spec In Lab Juan Alberto Dunlap MD URINE ORDERABLES Performing Organization Address City/State/ZIP Code Phon e Number [address] POCT Glucose (10/08/2017 9:15 AM EDT) athologist Signature POC Glucose 142 65 - 199 [facility] LABORATORY Comment: Supplemental ranges: <140 mg/dL before meals <180 mg/dL all other times of the day Specimen Anatomical Collection Method Collection Time Receive d Time (Source) Location / / Volume Laterality Blood specimen 10/08/2017 9:15 AM 018 9:15 (specimen) EDT AM EDT Juan Alberto Dunlap MD POINT OF CARE TEST ORDERABLE S Performing Organization Address City/[facility]/ZIP Code Phon e Number [address] POCT Glucose (10/08/2017 7:56 AM EDT) athologist Signature POC Glucose 143 65 - 199 [facility] mg/dL [facility] LABORATORY Comment: Supplemental ranges: <140 mg/dL before meals <180 mg/dL all other times of the day Specimen Anatomical Collection Method Collection Time Receive d Time (Source) Location / / Volume Laterality Blood specimen 10/08/2017 7:56 AM 018 7:56 (specimen) EDT AM EDT Juan Alberto Dunlap MD POINT OF CARE TEST ORDERABLE S Performing Organization Address City/[facility]/ZIP Code Phon e Number [address] POCT Glucose (10/08/2017 7:04 AM EDT) P athologist Signature POC Glucose 127 65 - 199 [facility] mg/dL [facility] LABORATORY Comment: Supplemental ranges: <140 mg/dL before meals <180 mg/dL all other times of the day Specimen Anatomical Collection Method Collection Time Receive d Time (Source) Location / / Volume Laterality Blood specimen 10/08/2017 7:04 AM 018 7:04 (specimen) EDT AM EDT Juan Alberto Dunlap MD POINT OF CARE TEST ORDERABLE S Performing Organization Address City/State/[place] [address] (ABNORMAL) BLOOD GAS 2 ARTERIAL (10/08/2017 6:25 AM EDT) Analysis Performed At Patho logist Time Signature pH Art 7.42 7.35 - [facility] 7.45 [facility] LABORATORY pCO2 Art 32 (L) 35 - 45 [facility] LABORATORY pO2 Art 108 (H) 85 - 104 [facility] LABORATORY HCO3 Art 20.3 20.0 - [facility] 26.0 [facility] mmol/[facility] LABORATORY BE Art -4.2 (L) -3.0 - 3.0 [facility] mmol/L [facility] LABORATORY Hgb Blood Gas 14.0 13.7 - [facility] 16.5 gm/dL [facility] LABORATORY O2HB Art 96.4 94.0 - [facility] 97.0 % [facility] LABORATORY COHB Art 0.3 % [facility] LABORATORY Comment: Nonsmokers: 0.5-1.5% COHB Smokers: Variable, but usually less than 10% Toxic: 20-30% COHB Lethal: Greater than 60% COHB METHB Art 0.6 <=1.5 % [facility] LABORATORY Na Whole Blood 139 [...] Blood 110 (H) 98 - 107 mmol/L [facility] LABORATORY Gluc Whole Bld 134 65 - 199 mg/dL [facility] LABORATORY Comment: Diabetes: >=200 mg/dL plus symp toms. Lactate WB 1.6 0.5 - 2.2 mmol/L [facility] LABORATORY FIO2 Art 40 % [facility]OR[facility] PF Ratio Art 270 [facility] LABORATORY Specimen Anatomical Collection Method Collection Time Receive d Time (Source) Location / / Volume Laterality Blood specimen 10/08/2017 6:25 AM 018 6:25 (specimen) EDT AM EDT Juan Alberto Dunlap MD CHEMISTRY ORDERABLES Performing Organization Address City/[facility]/ZIP [facility] [place] Number [address] POCT Glucose (10/08/2017 6:04 AM EDT) P athologist Signature POC Glucose 145 65 - 199 [facility] mg/dL [facility] LABORATORY Comment: Supplemental ranges: <140 mg/dL before meals <180 mg/dL all other times of the day Specimen Anatomical Collection Method Collection Time Receive d Time (Source) Location / / Volume Laterality Blood specimen 10/08/2017 6:04 AM 018 6:04 (specimen) EDT AM EDT Juan Alberto Dunlap MD POINT OF CARE TEST ORDERABLE S Performing Organization Address City/[facility]/ZIP [place] [address] POCT Glucose (10/08/2017 5:03 AM EDT) P athologist Signature POC Glucose 135 65 - 199 [facility] LABORATORY Comment: Supplemental ranges: <140 mg/dL before meals <180 mg/dL all other times of the day Specimen Anatomical Collection Method Collection Time Receive d Time (Source) Location / / Volume Laterality Blood specimen 10/08/2017 5:03 AM 018 5:03 (specimen) EDT AM EDT Juan Alberto Dunlap MD POINT OF CARE TEST ORDERABLE S Performing Organization Address City/[facility]/ZIP Code Phon e Number [address] POCT Glucose (10/08/2017 3:53 AM EDT) P athologist Signature POC Glucose 159 65 - 199 [facility] mg/dL [facility] LABORATORY Comment: Supplemental ranges: <140 mg/dL before meals <180 mg/dL all other times of the day Specimen Anatomical Collection Method Collection Time Receive d Time (Source) Location / / Volume Laterality Blood specimen 10/08/2017 3:53 AM 018 3:53 (specimen) EDT AM EDT Juan Alberto Dunlap MD POINT OF CARE TEST ORDERABLE S Performing Organization Address City/[facility]/ZIP [place] [address] Scan, Peripheral Blood (10/08/2017 3:50 AM EDT) [facility] T-ZONE Method Time Signature Plat Estimate Decreased [facility] RBC Morphology Abnormal [facility] [place] Cells 1-5 /HPF [facility] LABORATORY Specimen Anatomical Collection Method Collection Time Receive d Time (Source) Location / / Volume Laterality Blood specimen 10/08/2017 3:50 AM 018 4:10 (specimen) EDT AM EDT Resulting Agency Comment Spec In Lab Emily THORNTON HEMATOLOGY ORDERABLES Performing Organization Address City/[facility]/ZIP Code Phon e Number [address] (ABNORMAL) Differential, Automated (10/08/2017 3:50 AM EDT) [facility] T-ZONE Method Time Signature Neutrophils % 78.0 % [facility] LABORATORY Neutr Abs (ANC) 14.22 (H) 1.70 - [facility] 6.10 [facility] x10(3)/[facility] L LABORATORY Lymphocytes % 5.7 % [facility] LABORATORY Lymphocytes Abs 1.0 0.9 - 3.2 [facility] x10(3)/[facility] LABORATORY Monocytes % 15.1 % [facility] LABORATORY Monocyte Abs 2.8 (H) 0.3 - 0.9 [facility] x10(3)/[facility] LABORATORY Eosinophils % 0.0 % [facility] LABORATORY Eosinophils Abs 0.0 0.0 - 0.4 [facility] x10(3)/[facility] LABORATORY Basophils % 0.2 % [facility] LABORATORY Basophils Abs 0.0 0.0 - 0.1 [facility] x10(3)/[facility] LABORATORY Immature Gran % 1.00 % [...] Gran Abs 0.18 (H) 0.00 - 0.04 x10(3)/[facility] LABORATORY Specimen Anatomical Collection Method Collection Time Receive d Time (Source) Location / / Volume Laterality Blood specimen 10/08/2017 3:50 AM 018 4:10 (specimen) EDT AM EDT Resulting Agency Comment Spec In Lab Emily THORNTON HEMATOLOGY ORDERABLES Performing Organization Address City/State/[place] [address] (ABNORMAL) Hemogram (10/08/2017 3:50 AM EDT) Analysis Performed At Patho logist Time Signature WBC 18.2 (H) 4.0 - 9.5 [facility] x10(3)/[facility] LABORATORY RBC 4.95 4.58 - [facility] 5.54 [facility] x10(6)/[facility] LABORATORY Hemoglobin 14.6 13.7 - [facility] 16.5 gm/dL [facility] LABORATORY Hematocrit 43.1 40.5 - [facility] 48.5 % [facility] LABORATORY MCV 87.1 82.9 - [facility] 93.1 [facility] LABORATORY MCH 29.5 27.5 - [facility] 32.1 pg [facility] LABORATORY MCHC 33.9 32.0 - [facility] 35.7 gm/dL [facility] LABORATORY Platelets 135 (L) 145 - 357 [facility] x10(3)/[facility] LABORATORY RDWSD 42.5 36.0 - [facility] 45.0 [facility] LABORATORY RDWCV 13.4 11.4 - [facility] 13.8 % [facility] LABORATORY MPV 11.8 7.6 - 12.9 [facility] LABORATORY nRBC % Auto 0.0 % [facility] LABORATORY nRBC Abs Auto 0.000 0.000 - [facility] 0.000 [facility] x10(3)/[facility] LABORATORY Specimen Anatomical Collection Method Collection Time Receive d Time (Source) Location / / Volume Laterality Blood specimen 10/08/2017 3:50 AM 018 4:10 (specimen) EDT AM EDT Resulting Agency Comment Spec In Lab Emily THORNTON HEMATOLOGY ORDERABLES Performing Organization Address City/State/[place] [address] (ABNORMAL) Electrolytes panel (10/08/2017 3:50 AM EDT) P athologist Signature Sodium 142 135 - 145 [facility] mmol/L [facility] LABORATORY Potassium 4.4 3.5 - 5.0 [facility] mmol/L [facility] LABORATORY Comment: Please note: ??Patients with WBC >100,00 0 may have falsely elevated Potassium levels. ??For accurate Potassium quantif ication in these patients send serum separator tube (gold top) for subsequent determinations. ??Contact the Clinical Chemistry Laboratory if there are any qu estions. Chloride 109 (H) 98 - 107 mmol/L [facility] LABORATORY CO2 19 (L) 22 - 31 mmol/L [facility] Anion Gap 14 5 - 15 mmol/L [facility] LABORATORY Specimen Anatomical Collection Method Collection Time Receive d Time (Source) Location / / Volume Laterality Blood specimen 10/08/2017 3:50 AM 018 4:10 (specimen) EDT AM EDT Resulting Agency Comment Spec In Lab Juan Alberto Dunlap MD CHEMISTRY ORDERABLES Performing Organization Address City/State/[place] [address] (ABNORMAL) Cardiac Enzymes (LEB/CGP) (10/08/2017 3:50 AM EDT) P athologist Signature Troponin-T 1.08 (H) 0.00 - [facility] 0.00 ng/mL [facility] LABORATORY Comment: The 99th percentile for Troponin T is le ss than 0.01 ng/mL, any detectable cTnT concentration using this assay should be considered elevated. According to the third universal definit ion of myocardial infarction the following criteria with a clinical prese ntation consistent with acute myocardial ischemia meets the diagnosis for a myocardial infarction (ME). Detection of a rise and/or fall of [...] additional sample may be indicated. Reference: [place] Definition of Myocardial Infarction. Journal of the [place] [employer] 2012;60:1581-98 CK, Total 614 (H) 0 - 200 unit/L [facility] LABORATORY Specimen Anatomical Collection Method Collection Time Receive d Time (Source) Location / / Volume Laterality Blood specimen 10/08/2017 3:50 AM 018 4:10 (specimen) EDT AM EDT Resulting Agency Comment Spec In Lab Juan Alberto Dunlap MD CHEMISTRY ORDERABLES Performing Organization Address City/State/ZIP Code Phon e Number [address] Potassium (10/08/2017 3:50 AM EDT) athologist Signature Potassium 4.4 3.5 - 5.0 [facility] mmol/L [facility] LABORATORY Comment: Please note: ??Patients with WBC [...] Organization Address City/State/Z[place] [address] (ABNORMAL) Glucose, fasting (10/08/2017 3:50 AM EDT) athologist Signature Glucose 175 (H) 65 - 99 [facility] Fasting mg/dL [facility] LABORATORY Comment: ?Fasting* Glucose Interpretive C riteria [...] of Diabetes Mellitus, Position Statement from the [place] [employer]. ??Diabete s Care, Volume 33, Supplement 1, Feb 2009 Specimen Anatomical Collection Method Collection Time Receive d Time (Source) Location / / Volume Laterality Blood specimen 10/08/2017 3:50 AM 018 4:10 (specimen) EDT AM EDT Resulting Agency Comment Spec In Lab Juan Alberto Dunlap MD CHEMISTRY ORDERABLES Performing Organization Address City/[facility]/ZIP [place] [address] Creatinine (10/08/2017 3:50 AM EDT) P athologist Signature Creatinine 0.93 0.80 - [place] 1.50 mg/dL [facility] LABORATORY Estimated GFR 90 >=60 [facility] mL/min/1.7 [facility] 3 m?? HOSPITAL LABORATORY Comment: The eGFR was calculated using the CKD-EP I equation. As with all creatinine based estimates of kidney function, eGFR values calculated with the CKD-EPI equation are not accurate in patients wi th acute kidney failure, extremes of body mass or the acutely ill. [email or web address] eGFR 104 >=60 mL/min/1.73 m?? [facility] LABORATORY Comment: The eGFR was calculated using the CKD-EP I equation. As with all creatinine based estimates of kidney function, eGFR values calculated with the CKD-EPI equation are not accurate in patients wi th acute kidney failure, extremes of body mass or the acutely ill. [email or web address]/Clickonkf Specimen Anatomical Collection Method Collection Time Receive d Time (Source) Location / / Volume Laterality Blood specimen 10/08/2017 3:50 AM 018 4:10 (specimen) EDT AM EDT Resulting Agency Comment Spec In Lab Juan Alberto Dunlap MD CHEMISTRY ORDERABLES Performing Organization Address City/[facility]/ZIP Code Phon e Number [address] BUN (10/08/2017 3:50 AM EDT) athologist Signature BUN 17 10 - 20 [facility] [place] mg/dL [facility] LABORATORY Specimen Anatomical Collection Method Collection Time Receive d Time (Source) Location / / Volume Laterality Blood specimen 10/08/2017 3:50 AM 018 4:10 (specimen) EDT AM EDT Resulting Agency Comment Spec In Lab Juan Alberto Dunlap MD CHEMISTRY ORDERABLES Performing Organization Address City/State/Z[place] [address] POCT Glucose (10/08/2017 3:08 AM EDT) P athologist Signature POC Glucose 156 65 - 199 [facility] [place] mg/dL [facility] LABORATORY Comment: Supplemental ranges: <140 mg/dL before meals <180 mg/dL all other times of the day Specimen Anatomical Collection Method Collection Time Receive d Time (Source) Location / / Volume Laterality Blood specimen 10/08/2017 3:08 AM 018 3:08 (specimen) EDT AM EDT Juan Alberto Dunlap MD POINT OF CARE TEST ORDERABLE S Performing Organization Address City/State/ZIP Code Phon e Number [address] POCT Glucose (10/08/2017 1:59 AM EDT) athologist Signature POC Glucose 158 65 - 199 [place] [place] mg/dL [facility] LABORATORY Comment: Supplemental ranges: <140 mg/dL before meals <180 mg/dL all other times of the day Specimen Anatomical Collection Method Collection Time Receive d Time (Source) Location / / Volume Laterality Blood specimen 10/08/2017 1:59 AM 018 1:59 (specimen) EDT AM EDT Juan Alberto Dunlap MD POINT OF CARE TEST ORDERABLE S Performing Organization Address City/State/ZIP Code Phon e Number [place] [id number] POCT Glucose (10/08/2017 1:06 AM EDT) athologist Signature POC Glucose 195 65 - 199 [place] [place] mg/dL [facility] LABORATORY Comment: Supplemental ranges: <140 mg/dL before meals <180 mg/dL all other times of the day Specimen Anatomical Collection Method Collection Time Receive d Time (Source) Location / / Volume Laterality Blood specimen 10/08/2017 1:06 AM 018 1:06 (specimen) EDT AM EDT Juan Alberto Dunlap MD POINT OF CARE TEST ORDERABLE S Performing Organization Address City/State/ZIP Code Phon e Number [place] [id number] [facility] [address] POCT Glucose (10/07/2017 11:52 PM EDT) athologist Signature POC Glucose 195 65 - 199 [facility] mg/dL [facility] LABORATORY Comment: Supplemental ranges: <140 mg/dL before meals <180 mg/dL all other times of the day Specimen Anatomical Collection Method Collection Time Receive d Time (Source) Location / / Volume Laterality Blood specimen 10/07/2017 11:52 8 (specimen) PM EDT 11:52 PM EDT Juan Alberto Dunlap MD POINT OF CARE TEST ORDERABLE S Performing Organization Address City/State/ZIP [place] [address] Potassium (10/07/2017 11:50 PM EDT) athologist Signature Potassium 4.5 3.5 - 5.0 [facility] mmol/L [facility] LABORATORY Comment: Please note: ??Patients with WBC [...] Organization Address City/State/Z[place] [address] [facility] [address] POCT Glucose (10/07/2017 11:01 PM EDT) athologist Signature POC Glucose 177 65 - 199 [facility] mg/dL [facility] LABORATORY Comment: Supplemental ranges: <140 mg/dL before meals <180 mg/dL all other times of the day Specimen Anatomical Collection Method Collection Time Receive d Time (Source) Location / / Volume Laterality Blood specimen 10/07/2017 11:01 08/17/201 8 (specimen) PM EDT 11:01 PM EDT Juan Alberto Dunlap MD POINT OF CARE TEST ORDERABLE S Performing Organization Address City/State/ZIP [place] [address] POCT Glucose (10/07/2017 9:59 PM EDT) P athologist Signature POC Glucose 173 65 - 199 [place] mg/dL [facility] LABORATORY Comment: Supplemental ranges: <140 mg/dL before meals <180 mg/dL all other times of the day Specimen Anatomical Collection Method Collection Time Receive d Time (Source) Location / / Volume Laterality Blood specimen 10/07/2017 9:59 PM 018 9:59 (specimen) EDT PM EDT Juan Alberto Dunlap MD POINT OF CARE TEST ORDERABLE S Performing Organization Address City/State/ZIP [place] [address] POCT Glucose (10/07/2017 9:00 PM EDT) athologist Signature POC Glucose 182 65 - 199 [place] mg/dL [facility] LABORATORY Comment: Supplemental ranges: <140 mg/dL before meals <180 mg/dL all other times of the day Specimen Anatomical Collection Method Collection Time Receive d Time (Source) Location / / Volume Laterality Blood specimen 10/07/2017 9:00 PM 018 9:00 (specimen) EDT PM EDT Juan Alberto Dunlap MD POINT OF CARE TEST ORDERABLE S Performing Organization Address City/State/ZIP [place] [address] POCT Glucose (10/07/2017 7:58 PM EDT) P athologist Signature POC Glucose 193 65 - 199 [place] mg/dL [facility] LABORATORY Comment: Supplemental ranges: <140 mg/dL before meals <180 mg/dL all other times of the day Specimen Anatomical Collection Method Collection Time Receive d Time (Source) Location / / Volume Laterality Blood specimen 10/07/2017 7:58 PM 018 7:58 (specimen) EDT PM EDT Juan Alberto Dunlap MD POINT OF CARE TEST ORDERABLE S Performing Organization Address City/State/ZIP Code Phon e Number [address] (ABNORMAL) POCT Glucose (10/07/2017 6:28 PM EDT) athologist Signature POC Glucose 221 (H) 65 - 199 [place] mg/dL [facility] LABORATORY Comment: Supplemental ranges: <140 mg/dL before meals <180 mg/dL all other times of the day Specimen Anatomical Collection Method Collection Time Receive d Time (Source) Location / / Volume Laterality Blood specimen 10/07/2017 6:28 PM 018 6:28 (specimen) EDT PM EDT Juan Alberto Dunlap MD POINT OF CARE TEST ORDERABLE S Performing Organization Address City/[facility]/ZIP [place] [address] Hemoglobin (10/07/2017 6:20 PM EDT) athologist Signature Hemoglobin 15.8 13.7 - 16.5 [place] gm/dL [facility] LABORATORY Specimen Anatomical Collection Method Collection Time Receive d Time (Source) Location / / Volume Laterality Blood specimen 10/07/2017 6:20 PM 018 6:36 (specimen) EDT PM EDT Resulting Agency Comment Spec In Lab Juan Alberto Dunlap MD HEMATOLOGY ORDERABLES Performing Organization Address City/State/[place] [address] Potassium (10/07/2017 6:20 PM EDT) athologist Signature Potassium 3.5 3.5 - 5.0 LEOBARDO LUANN mmol/L [facility] LABORATORY Comment: Please note: ??Patients with WBC [...] Organization Address City/State/[place] [address] POCT Glucose (10/07/2017 5:14 PM EDT) P athologist Signature POC Glucose 195 65 - 199 [facility] mg/dL [facility] LABOR[facility]ORY Comment: Supplemental ranges: <140 mg/dL before meals <180 mg/dL all other times of the day Specimen Anatomical Collection Method Collection Time Receive d Time (Source) Location / / Volume Laterality Blood specimen 10/07/2017 5:14 PM 018 5:14 (specimen) EDT PM EDT Juan Alberto Dunlap MD POINT OF CARE TEST ORDERABLE S Performing Organization Address City/[facility]/[place]IP [place] [address] (ABNORMAL) BLOOD GAS 2 ARTERIAL (10/07/2017 3:52 PM EDT) Analysis Performed At Patho logist Time Signature pH Art 7.36 7.35 - [facility] 7.45 [facility] LABORATORY pCO2 Art 35 35 - 45 [facility] mmHg [facility]ATORY pO2 Art 256 (H) 85 - 104 [facility] LABORATORY HCO3 Art 19.2 (L) 20.0 - [facility] 26.0 [facility] mmol/L [facility] LABORAT[facility] BE Art -6.2 (L) -3.0 - 3.0 [facility] mmol/L [facility]ORY Hgb Blood Gas 15.8 13.7 - [facility] 16.5 gm/dL [facility]ORY O2HB Art 97.7 (H) 94.0 - [facility] 97.0 % [facility] LABORATORY COHB Art 0.4 % [facility] LABOR[facility] Comment: Nonsmokers: 0.5-1.5% COHB Smokers: Variable, but usually less than 10% Toxic: 20-30% COHB Lethal: Greater than 60% COHB METHB Art 0.7 <=1.5 % [facility] LABORATORY Na Whole Blood 140 135 - 145 mmol/L [facility] LABORATORY K Whole Blood 3.3 (L) 3.5 - 5.0 mmol/L [facility] [...] Blood 108 (H) 98 - 107 mmol/L [facility] Gluc Whole Bld 204 (H) 65 - 199 mg/dL [facility] Comment: Diabetes: >=200 mg/dL plus symp toms. Lactate WB 4.7 (Critical) 0.5 - 2.2 mmol/L [facility] LABOR[facility] Comment: Noted by brass and wind instrument repairer. FIO2 Art 100 % [facility] PF Ratio Art 256 [facility] LABORATORY Specimen Anatomical Collection Method Collection Time Receive d Time (Source) Location / / Volume Laterality Blood specimen 10/07/2017 3:52 PM 018 3:52 (specimen) EDT PM EDT Juan Alberto Dunlap MD CHEMISTRY ORDERABLES Performing Organization Address City/State/[place] [address] XR Chest PA or [...] distal aspect. Cardiac device is noted. A [place] catheter terminates at the l ikely position [...] distal aspect. Cardiac device is noted. A [place]iane catheter terminates at the l ikely position of the proximal pulmonary outflow tract. No pneumothorax. Juan Alberto Dunlap MD IMG DX ORDERABLES EKG 12 Lead (10/07/2017 3:29 PM EDT) [facility] gist Method Time Signature Ventricular rate 87 BPM MUSE SYSTEM Atrial Rate 87 BPM MUSE SYSTEM P-R Interval 178 ms MUSE SYSTEM QRS Duration 114 ms MUSE SYSTEM Q-T Interval 436 ms MUSE SYSTEM QTC Calculated 524 ms MUSE SYSTEM (Bezet) Calculated P Kiester 67 degrees MUSE SYSTEM Calculated R Kiester 84 degrees MUSE SYSTEM Calculated T Kiester 92 degrees MUSE SYSTEM INTERPRETATION Normal sinus rhythm MUSE SYSTEM Inferior infarct (cited on or before 23-FEB-1995) Prolonged QT ACUTE ME / STEMI Abnormal ECG When compared with ECG of 09-AUG-2017 14:43, ST elevation now present in Inferior leads Confirmed by MD Chelsie, Jl Aguilar ([id number]) on 10/07/2017 7:47:3 8 PM Specimen Anatomical [...] Signature pH Art 7.32 (L) 7.35 - [facility] 7.45 [facility]ORY pCO2 Art 41 35 - 45 [facility] mmHg [facility] LAB[facility]ATORY pO2 Art 136 (H) 85 - 104 [facility] LABORATORY HCO3 Art 20.9 20.0 - [facility] 26.0 [facility] mmol/L [facility] LABORAT[facility] BE Art -5.2 (L) -3.0 - 3.0 [facility] mmol/L [facility] Hgb Blood Gas 15.4 13.7 - [facility] 16.5 gm/dL [facility] O2HB Art 96.6 94.0 - [facility] 97.0 % [facility] LABORATORY COHB Art 0.8 % [facility] Comment: Nonsmokers: 0.5-1.5% COHB Smokers: Variable, but usually less than 10% Toxic: 20-30% COHB Lethal: Greater than 60% COHB METHB Art 0.6 <=1.5 % [facility] Na Whole Blood 140 135 - 145 mmol/L [facility] K Whole Blood 3.1 (L) 3.5 - 5.0 mmol/L [facility] [...] Blood 108 (H) 98 - 107 mmol/L [facility] Gluc Whole Bld 179 65 - 199 mg/dL [facility] Comment: Diabetes: >=200 mg/dL plus symp toms. Lactate WB 3.7 (H) 0.5 - 2.2 mmol/L [facility] FIO2 Art 100 % [facility] PF Ratio Art 136 [facility] LABORATORY Specimen Anatomical Collection Method Collection Time Receive d Time (Source) Location / / Volume Laterality Blood specimen 10/07/2017 3:04 PM 018 3:04 (specimen) EDT PM EDT Juan Alberto Dunlap MD CHEMISTRY ORDERABLES Performing Organization Address City/State/[place] [address] (ABNORMAL) BLOOD GAS 2 ARTERIAL (10/07/2017 1:27 PM EDT) Analysis Performed At Patho logist Time Signature pH Art 7.30 (L) 7.35 - [facility] 7.45 [facility] LABORATORY pCO2 Art 48 (H) 35 - 45 [facility] LABORATORY pO2 Art 176 (H) 85 - 104 [facility] LABORATORY HCO3 Art 23.1 20.0 - [facility] 26.0 [facility] mmol/L [facility]OR[facility] BE Art -3.3 (L) -3.0 - 3.0 [facility] mmol/L [facility] Hgb Blood Gas 12.8 (L) 13.7 - [facility] 16.5 gm/dL [facility]AT[facility] O2HB Art 97.9 (H) 94.0 - [facility] 97.0 % [facility] LABORATORY COHB Art 0.5 % [facility] Comment: Nonsmokers: 0.5-1.5% COHB Smokers: Variable, but usually less than 10% Toxic: 20-30% COHB Lethal: Greater than 60% COHB METHB Art 0.3 <=1.5 % [facility] Na Whole Blood 135 135 - 145 mmol/L [facility] K Whole Blood 3.2 (L) 3.5 - 5.0 mmol/L [facility] [...] WB 2.5 (H) 0.5 - 2.2 mmol/L [facility] LABORATORY Specimen Anatomical Collection Method Collection Time Receive d Time (Source) Location / / Volume Laterality Blood specimen 10/07/2017 1:27 PM 018 1:27 (specimen) EDT PM EDT Juan Alberto Dunlap MD CHEMISTRY ORDERABLES Performing Organization Address City/[facility]/ZIP [place] [address] (ABNORMAL) Thrombin time (10/07/2017 1:27 PM EDT) athologist Signature Thrombin Time 18 (H) 10 - 17 [facility] LABORATORY Comment: A prolongation in the [...] Mathew MD HEMATOLOGY ORDERABLES Performing Organization Address City/[facility]/ZIP Code Phon e Number [address] Fibrinogen (10/07/2017 1:27 PM EDT) athologist Signature Fibrinogen 233 200 - 393 [facility] mg/dL [facility] LABORATORY Comment: Called by: FRANCOISE, Read back [...] Mathew MD HEMATOLOGY ORDERABLES Performing Organization Address [facility] Phon e Number [address] APTT (10/07/2017 1:27 PM [...] Mathew MD HEMATOLOGY ORDERABLES Performing Organization Address [facility] [place] [address] (ABNORMAL) Prothrombin Time (10/07/2017 1:27 PM EDT) P athologist Signature PT 15.1 (H) 9.4 - 12.5 [facility] LABORATORY INR 1.4 [facility] [...] Organization Address City/State/[place] [address] (ABNORMAL) Hemogram (10/07/2017 1:27 PM EDT) athologist Signature WBC 20.3 (H) 4.0 - 9.5 [facility] x10(3)/[facility] LABORATORY RBC 4.07 (L) 4.58 - [facility] 5.54 [facility] x10(6)/[facility] LABORATORY Hemoglobin 11.8 (L) 13.7 - [facility] 16.5 gm/dL [facility] Hematocrit 36.8 (L) 40.5 - [facility] 48.5 % [facility] LABORATORY Comment: This result has been called to JAMAICA Malik by BRITTNEY VANN on 10 07 2017 at 1341, and has been read back. MCV 90.4 82.9 - 93.1 [facility] LABORATORY MCH 29.0 27.5 - 32.1 pg [facility] LABORATORY MCHC 32.1 32.0 - 35.7 gm/dL [facility] LABORATORY Platelets 140 (L) 145 - 357 x10(3)/[facility] LABORATORY RDWSD 42.9 36.0 - 45.0 [facility] LABORATORY RDWCV 13.1 11.4 - 13.8 % [facility] LABORATORY MPV 11.9 7.6 - 12.9 [facility] LABORATORY nRBC % Auto 0.0 % [facility] LABORATORY nRBC Abs Auto 0.000 0.000 - 0.000 x10(3)/[facility] LABORATORY Specimen Anatomical Collection Method Collection Time Receive d Time (Source) Location / / Volume Laterality Blood specimen 10/07/2017 1:27 PM 018 1:33 (specimen) EDT PM EDT Resulting Agency Comment Spec In Lab Lynn Mathew MD HEMATOLOGY ORDERABLES Performing Organization Address City/State/[place] [address] (ABNORMAL) BLOOD GAS 2 ARTERIAL (10/07/2017 12:50 PM EDT) Analysis Performed At Patho logist Time Signature pH Art 7.32 (L) 7.35 - [facility] 7.45 [facility] LABORATORY pCO2 Art 46 (H) 35 - 45 [facility] mmHg [facility] LABORATORY pO2 Art 313 (H) 85 - 104 [facility] LABORATORY HCO3 Art 23.4 20.0 - [facility] 26.0 [facility] mmol/L [facility] LABORATORY BE Art -2.7 -3.0 - 3.0 [facility] mmol/L [facility] LABORATORY Hgb Blood Gas 11.1 (L) 13.7 - [facility] 16.5 gm/dL [facility] LABORATORY O2HB Art 98.4 (H) 94.0 - [facility] 97.0 % [facility] LABORATORY COHB Art 0.4 % [facility] LABORATORY Comment: Nonsmokers: 0.5-1.5% COHB Smokers: Variable, but usually less than 10% Toxic: 20-30% COHB Lethal: Greater than 60% COHB METHB Art 0.3 <=1.5 % [facility] LABORATORY Na Whole Blood 129 (L) 135 - 145 mmol/L [facility] LABORATORY K Whole Blood 4.7 3.5 - 5.0 mmol/L [facility] [...] Whole Blood 105 98 - 107 mmol/L [facility]ORY Gluc Whole Bld 225 (H) 65 - 199 mg/dL [facility] LAB[facility]ATORY Comment: Diabetes: >=200 mg/dL plus symp toms. Lactate WB 2.2 0.5 - 2.2 mmol/L [facility] LABORATORY Specimen Anatomical Collection Method Collection Time Receive d Time (Source) Location / / Volume Laterality Blood specimen 10/07/2017 12:50 8 (specimen) PM EDT 12:50 PM EDT Juan Alberto Dunlap MD CHEMISTRY ORDERABLES Performing Organization Address City/State/[place] [address] Platelet count (10/07/2017 12:39 PM EDT) athologist Signature Platelets 150 145 - 357 [facility] x10(3)/[facility] LABORATORY Plat Immature 6.6 0.0 - 7.4 [facility] % % [facility] LABORATORY Comment: Limitation of the Immature Platelet Frac tion (IPF)-May be less reliable when the platelet count is less than 93d783/u L due to statistical imprecision. The IPF [...] in a decreased state of production. References: [employer] The Clinical Value of the Immature Platelet Fraction (IPF) in Cell Recovery Document Number [id number] 07/2010 [employer] The Role of the Imm ature Platelet Fraction (IPF) in the Differential Diagnosis of Thrombocytopen ia, Document [id number] V05 P007/04 Specimen Anatomical Collection Method Collection Time Receive d Time (Source) Location / / Volume Laterality Blood specimen 10/07/2017 12:39 8 (specimen) PM EDT 12:45 PM EDT Resulting Agency Comment Spec In Lab Juan Alberto Dunlap MD HEMATOLOGY ORDERABLES Performing Organization Address City/State/ZIP Code Phon e Number [address] (ABNORMAL) Hemoglobin and Hematocrit, blood (10/07/2017 12:39 PM EDT) P athologist Signature Hemoglobin 10.8 (L) 13.7 - [facility] gm/dL [facility]ORATORY Hematocrit 32.1 (L) 40.5 - [facility] 48.5 % [facility] LABORATORY Comment: This result has been called to MAGALY ALEMAN by HEIDY DOANLD on 10 07 2017 at 1251, and has been read back. Specimen Anatomical Collection Method Collection Time Receive d Time (Source) Location / / Volume Laterality Blood specimen 10/07/2017 12:39 8 (specimen) PM EDT 12:45 PM EDT Resulting Agency Comment Spec In Lab Juan Alberto Dunlap MD HEMATOLOGY ORDERABLES Performing Organization Address City/[facility]/ZIP [place] [address] Fibrinogen (10/07/2017 12:39 PM EDT) P athologist Signature Fibrinogen 213 200 - 393 [facility] mg/dL [facility] LABORATORY Comment: Called by: YENI, Read back [...] Dunlap MD HEMATOLOGY ORDERABLES Performing Organization Address City/[facility]/ZIP [place] [address] (ABNORMAL) BLOOD GAS 2 ARTERIAL (10/07/2017 12:16 PM EDT) Analysis Performed At Patho logist Time Signature pH Art 7.37 7.35 - [facility] 7.45 [facility] LABORATORY pCO2 Art 41 35 - 45 [facility] LABORATORY pO2 Art 255 (H) 85 - 104 [facility] LABORATORY HCO3 Art 23.4 20.0 - [facility] 26.0 [facility] mmol/L [facility] LABORATORY BE Art -1.9 -3.0 - 3.0 [facility] mmol/L [facility] LABORATORY Hgb Blood Gas 11.8 (L) 13.7 - [facility] 16.5 gm/dL [facility] LABORATORY O2HB Art 98.3 (H) 94.0 - [facility] 97.0 % [facility] LABORATORY COHB Art 0.1 % [facility] LABORATORY Comment: Nonsmokers: 0.5-1.5% COHB Smokers: Variable, but usually less than 10% Toxic: 20-30% COHB Lethal: Greater than 60% COHB METHB Art 0.3 <=1.5 % [facility] LABORATORY Na Whole Blood 132 (L) 135 - 145 mmol/L [facility] LABORATORY K Whole Blood 5.2 (H) 3.5 - 5.0 mmol/L [facility] [...] Whole Blood 105 98 - 107 mmol/L [facility] LABORATORY Gluc Whole Bld 223 (H) 65 - 199 mg/dL [facility] LABORATORY Comment: Diabetes: >=200 mg/dL plus symp toms. Lactate WB 2.1 0.5 - 2.2 mmol/L [facility] LABORATORY Specimen Anatomical Collection Method Collection Time Receive d Time (Source) Location / / Volume Laterality Blood specimen 10/07/2017 12:16 8 (specimen) PM EDT 12:16 PM EDT Juan Alberto Dunlap MD CHEMISTRY ORDERABLES Performing Organization Address City/State/Z[place] [address] (ABNORMAL) BLOOD GAS 2 ARTERIAL (10/07/2017 11:43 AM EDT) Analysis Performed At Patho logist Time Signature pH Art 7.38 7.35 - [facility] 7.45 [facility] LABORATORY pCO2 Art 36 35 - 45 [facility] mmHg [facility] LABORATORY pO2 Art 327 (H) 85 - 104 [facility] mmHg [facility] LABORATORY HCO3 Art 20.9 20.0 - [facility] 26.0 [facility] mmol/L [facility] LABORATORY BE Art -4.3 (L) -3.0 - 3.0 [facility] mmol/L [facility] LABORATORY Hgb Blood Gas 11.7 (L) 13.7 - [facility] 16.5 gm/dL [facility] LABORATORY O2HB Art 98.1 (H) 94.0 - [facility] 97.0 % [facility] LABORATORY COHB Art 0.8 % [facility] LABORATORY Comment: Nonsmokers: 0.5-1.5% COHB Smokers: Variable, but usually less than 10% Toxic: 20-30% COHB Lethal: Greater than 60% COHB METHB Art 0.3 <=1.5 % [facility] LABORATORY Na Whole Blood 129 (L) 135 - 145 mmol/L [facility] LABORATORY K Whole Blood 4.8 3.5 - 5.0 mmol/L [facility] [...] Whole Blood 104 98 - 107 mmol/L [facility] LABORATORY Gluc Whole Bld 218 (H) 65 - 199 mg/dL [facility] LABORATORY Comment: Diabetes: >=200 mg/dL plus symp toms. Lactate WB 1.9 0.5 - 2.2 mmol/L [facility] LABORATORY Specimen Anatomical Collection Method Collection Time Receive d Time (Source) Location / / Volume Laterality Blood specimen 10/07/2017 11:43 8 (specimen) AM EDT 11:43 AM EDT Juan Alberto Dunlap MD CHEMISTRY ORDERABLES Performing Organization Address City/State/[place] [address] (ABNORMAL) BLOOD GAS 2 VENOUS (10/07/2017 11:12 AM EDT) [facility] Method Time Signature pH Stefan 7.26 7.32 - [facility] (Critical) 7.42 [facility] LABORATORY pCO2 Stefan 45 41 - 51 [facility] LABORATORY pO2 Stefan 55 (H) 25 - 40 [facility] LABORATORY HCO3 Stefan 19.6 mmol/L [facility] BE Stefan -7.5 mmol/L [facility] LABORATORY Hgb Blood Gas 12.5 (L) 13.7 - [facility] 16.5 gm/dL [facility] LABORATORY O2HB Stefan 82.6 % [facility] LABORATORY COHB Stefan 0.9 % [facility] LABORATORY Comment: Nonsmokers: 0.5-1.5% COHB Smokers: Variable, but usually less than 10% Toxic: 20-30% COHB Lethal: Greater than 60% COHB METHB Stefan 0.3 <=1.5 % [facility] LABORATORY Na Whole Blood 134 (L) 135 - 145 mmol/L [facility] LABORATORY K Whole Blood 3.9 3.5 - 5.0 mmol/L [facility] [...] Whole Blood 105 98 - 107 mmol/L [facility] LABORATORY Gluc Whole Bld 227 (H) 65 - 199 mg/dL [facility] LABORATORY Comment: Diabetes: >=200 mg/dL plus symp toms Lactate WB 1.9 0.5 - 2.2 mmol/L [facility] LABORATORY BGas Source Venous [facility] LABORATORY Specimen Anatomical Collection Method Collection Time Receive d Time (Source) Location / / Volume Laterality Blood specimen 10/07/2017 11:12 8 (specimen) AM EDT 11:12 AM EDT Juan Alberto Dunlap MD CHEMISTRY ORDERABLES Performing Organization Address City/State/[place] [address] (ABNORMAL) BLOOD GAS 2 ARTERIAL (10/07/2017 11:10 AM EDT) Analysis Performed At Patho logist Time Signature pH Art 7.32 (L) 7.35 - [facility] 7.45 [facility] LABORATORY pCO2 Art 43 35 - 45 [facility] LABORATORY pO2 Art 389 (H) 85 - 104 [facility] LABORATORY HCO3 Art 21.4 20.0 - [facility] 26.0 [facility] mmol/[facility] LABORATORY BE Art -4.8 (L) -3.0 - 3.0 [facility] mmol/L [facility] LABORATORY Hgb Blood Gas 12.6 (L) 13.7 - [facility] 16.5 gm/dL [facility] LABORATORY O2HB Art 98.6 (H) 94.0 - [facility] 97.0 % [facility] LABORATORY COHB Art 0.3 % [facility] LABORATORY Comment: Nonsmokers: 0.5-1.5% COHB Smokers: Variable, but usually less than 10% Toxic: 20-30% COHB Lethal: Greater than 60% COHB METHB Art 0.3 <=1.5 % [facility] LABORATORY Na Whole Blood 134 (L) 135 - 145 mmol/L [facility] LABORATORY K Whole Blood 4.0 3.5 - [...] Whole Blood 106 98 - 107 mmol/L [facility] LABOR[facility]ORY Gluc Whole Bld 233 (H) 65 - 199 mg/dL [facility] LABOR[facility]ORY Comment: Diabetes: >=200 mg/dL plus symp toms. Lactate WB 2.4 (H) 0.5 - 2.2 mmol/L [facility] LABORATORY Specimen Anatomical Collection Method Collection Time Receive d Time (Source) Location / / Volume Laterality Blood specimen 10/07/2017 11:10 8 (specimen) AM EDT 11:10 AM EDT Juan Alberto Dunlap MD CHEMISTRY ORDERABLES Performing Organization Address City/State/[place] [address] (ABNORMAL) BLOOD GAS 2 ARTERIAL (10/07/2017 10:39 AM EDT) Analysis Performed At Patho logist Time Signature pH Art 7.30 (L) 7.35 - [facility] 7.45 [facility] pCO2 Art 40 35 - 45 [facility] mmHg [facility]ORY pO2 Art 259 (H) 85 - 104 [facility] LABORATORY HCO3 Art 19.2 (L) 20.0 - [facility] 26.0 [facility] mmol/L [facility] BE Art -7.1 (L) -3.0 - 3.0 [facility] mmol/L [facility] [facility] Hgb Blood Gas 15.4 13.7 - [facility] 16.5 gm/dL [facility] O2HB Art 98.1 (H) 94.0 - [facility] 97.0 % [facility] COHB Art 0.9 % [facility] Comment: Nonsmokers: 0.5-1.5% COHB Smokers: Variable, but usually less than 10% Toxic: 20-30% COHB Lethal: Greater than 60% COHB METHB Art 0.3 <=1.5 % [facility] Na Whole Blood 138 [...] [facility] Gluc Whole Bld 223 (H) 65 - 199 mg/dL [facility] Comment: Diabetes: >=200 mg/dL plus symp toms. Lactate WB 2.0 0.5 - 2.2 mmol/L [facility] Specimen Anatomical Collection Method Collection Time Receive d Time (Source) Location / / Volume Laterality Blood specimen 10/07/2017 10:39 8 (specimen) AM EDT 10:39 AM EDT Juan Alberto Dunlap MD CHEMISTRY ORDERABLES Performing Organization Address City/State/[place] [address] (ABNORMAL) BLOOD GAS 2 ARTERIAL (10/07/2017 10:27 AM EDT) Analysis Performed At Patho logist Time Signature pH Art 7.33 (L) 7.35 - [facility] 7.45 [facility] pCO2 Art 40 35 - 45 [facility] mmHg [facility] pO2 Art 328 (H) 85 - 104 [facility]ORY HCO3 Art 20.4 20.0 - [facility] 26.0 [facility] mmol/L [facility] BE Art -5.5 (L) -3.0 - 3.0 [facility] mmol/L [facility] Hgb Blood Gas 15.0 13.7 - [facility] 16.5 gm/dL [facility] O2HB Art 98.3 (H) 94.0 - [facility] 97.0 % [facility] COHB Art 0.7 % [facility] Comment: Nonsmokers: 0.5-1.5% COHB Smokers: Variable, but usually less than 10% Toxic: 20-30% COHB Lethal: Greater than 60% COHB METHB Art 0.3 <=1.5 % [facility] Na Whole Blood 137 [...] Blood 108 (H) 98 - 107 mmol/L [facility] Gluc Whole Bld 202 (H) 65 - 199 mg/dL [facility] Comment: Diabetes: >=200 mg/dL plus symp toms. Lactate WB 1.8 0.5 - 2.2 mmol/L [facility] Specimen Anatomical Collection Method Collection Time Receive d Time (Source) Location / / Volume Laterality Blood specimen 10/07/2017 10:27 8 (specimen) AM EDT 10:27 AM EDT Juan Alberto Dunlap MD CHEMISTRY ORDERABLES Performing Organization Address City/State/[place]IP [place] [address] Prepare Coag Factors (Non-Hemophilia) (10/07/2017 10:20 AM EDT) P athologist Signature Dispensed? Yes [facility] Specimen Anatomical Collection Method Collection Time Receive d Time (Source) Location / / Volume Laterality Blood specimen 10/07/2017 10:20 8 (specimen) AM EDT 10:20 AM EDT Juan Alberto Dunlap MD BLOOD BANK ORDERABLES Performing Organization Address City/[facility]/ZIP [place] [address] (ABNORMAL) BLOOD GAS 2 ARTERIAL (10/07/2017 8:56 AM EDT) Analysis Performed At Patho logist Time Signature pH Art 7.34 (L) 7.35 - [facility] 7.45 [facility] pCO2 Art 45 35 - 45 [facility] mmHg [facility] pO2 Art 507 (H) 85 - 104 [facility] LABOR[facility]ORY HCO3 Art 24.1 20.0 - [facility] 26.0 [facility] mmol/L [facility] BE Art -1.7 -3.0 - 3.0 [facility] mmol/L [facility] Hgb Blood Gas 14.5 13.7 - [facility] 16.5 gm/dL [facility] O2HB Art 98.5 (H) 94.0 - [facility] 97.0 % [facility] COHB Art 0.7 % [facility] Comment: Nonsmokers: 0.5-1.5% COHB Smokers: Variable, but usually less than 10% Toxic: 20-30% COHB Lethal: Greater than 60% COHB METHB Art 0.3 <=1.5 % [facility] Na Whole Blood 138 [...] Blood 108 (H) 98 - 107 mmol/L [facility] Gluc Whole Bld 112 65 - 199 mg/dL [facility] Comment: Diabetes: >=200 mg/dL plus symp toms. Lactate WB 1.3 0.5 - 2.2 mmol/L [facility] Specimen Anatomical Collection Method Collection Time Receive d Time (Source) Location / / Volume Laterality Blood specimen 10/07/2017 8:56 AM 08/17/2 018 8:56 (specimen) EDT AM EDT Juan Alberto Dunlap MD CHEMISTRY ORDERABLES Performing Organization Address City/[facility]/ZIP Code Phon e Number [address] POCT Glucose (10/07/2017 7:14 AM EDT) P athologist Signature POC Glucose 112 65 - 199 [facility] mg/dL [facility] Comment: Supplemental ranges: <140 mg/dL before meals <180 mg/dL all other times of the day Specimen Anatomical Collection Method Collection Time Receive d Time (Source) Location / / Volume Laterality Blood specimen 10/07/2017 7:14 AM 018 7:14 (specimen) EDT AM EDT Juan Alberto Dunlap MD POINT OF CARE TEST ORDERABLE S Performing Organization Address City/[facility]/ZIP Code Phon e Number [address] Prepare RBC (10/07/2017 6:30 AM EDT) P athologist Signature Dispensed? Yes [facility] Specimen Anatomical Collection Method Collection Time Receive d Time (Source) Location / / Volume Laterality Blood specimen 10/07/2017 6:30 AM 018 6:29 (specimen) EDT AM EDT Resulting Agency Comment Spec In Lab Juan Alberto Dunlap MD BLOOD BANK ORDERABLES Performing Organization Address City/[facility]/ZIP Code Phon e Number [address] documented in this encounter Visit [...] Until Discontinued, Starting post-op day 3., Routine dilTIAZem (CARDIZEM) 125 mg in New Bag [...] to a maximum dose of 15 mg/hr. furosemide (LASIX) tablet 20 mg Given 10/18/2017 8:50 AM EDT 20 mg 20 mg, Oral, DAILY, First dose (after last modification) on Tue10/18/17 at 0900, Until Discontinued, Routine ipratropium-albuterol (DUONEB) [...] Given 10/12/2017 9:12 AM EDT 10 mLs melatonin tablet 3 mg Given 10/17/2017 9:19 [...] 10/16/2017 9:17 AM EDT 40 mg sodium chloride 0.9 % flush 5 mL [...] Given 10/16/2017 9:17 AM EDT 0.4 mg warfarin (COUMADIN) daily order reminder Oral, EVERY [...] (CORDARONE; PACERONE) tablet 200 mg (CANCEL ED) 916 (Given - Provider: Jeremias Rubio RN)2116 (Given - Provider: Isela Vann RN) 200 mg, Oral, 2 TIMES DAILY, First dose on Nerissa 10/13/17 at 2100, Until Discontinued, Routine AMIOdarone (CORDARONE; PACERONE) tablet 200 mg 08 (Given - Provider: Emily Russo RN) 0850 (Given - Provider: Emily rao RN) 200 mg, Oral, DAILY, First dose on Tue at 0815, Until Discontinued, Routine aspirin chewable tablet 81 mg 916 (Given - Provider: Jeremias Rubio RN) 08 (Given - Provider: Emily Russo RN) 0850 (Given - Provider: Emily Russo RN) 81 mg, Oral, DAILY, First dose on Tue at 1515, Until Discontinued, Start on Post-Op Day 0, Routine atorvastatin (LIPITOR) tablet 40 mg 162 (Given - Prov ider: Jeremias Rubio RN) [...] Routine furosemide (LASIX) tablet 20 mg (CANCELED) 916 (Given - Provider: Jeremias Rubio RN)1628 (Given - Provider: Jeremias Rubio, CORNELIUS) 0805 (Given - Provider: Emily Russo RN)1640 [...] Vann RN)0900 (Not Given - Provider: Jeremias Rubio, CORNELIUS - Reason: Medication Discontinued) 3 mL, Nebulization, EVERY 6 HOURS, First dose on Tue10/11/17 at 0900, Until Discontinued, Routine magnesium hydroxide (MILK OF MAGNESIA) oral suspension 10 mL 0900 (Hold - Provider: Jeremias Rubio, CORNELIUS - Reason: Patient/family refused) 0900 (Not Given [...] aaron RN) 2118 (Given - Provider: Isela Vann, CORNELIUS) 3 mg, Oral, NIGHTLY, First dose on Tue at 2100, Until Discontinued, Routine metoprolol tartrate (LOPRESSOR) tablet 50 mg 0514 (Giv en - Provider: Isela Vann RN)1412 (Given - Provider: Jeremias Rubio, CORNELIUS)2116 (Given - Provider: Isela Vann RN) 0653 (Hold - Provider: Isela Vann RN - Reason: Per MD Order - Comment: per JADEN Aguilar HR [phone] (Given - Provider: Emily Russo RN)1448 (Given - Provider: Emily Russo, CORNELIUS)2118 (Given - Provider: Isela Vann RN) 0516 (Given - Provider: Isela Vann RN) 50 mg, Oral, EVERY 8 HOURS SCHEDULED, Fi rst dose on Tue10/15/17 at 1400, Until Discontinued, Hold for HR<50, SBP<90., Routine pantoprazole (PROTONIX) injection 40 mg(Linked Group 1 ) 0917 (See Alternative - Provider: Jeremias Rubio RN) [...] - Provider: Jeremias Rubio RN - Reason: Contraindicated)2116 (Given - Provider: Isela Vann RN) 0330 (Not Given - Provider: Isela menchaca RN - Reason: See comment - Comment: duplicate order)1130 (Not Given - Provider: Emily Russo RN - Reason: Contraindicated)2118 (Given - Provider: Isela Vann RN) 0330 (Not Given - Provider: Isela menchaca RN - Reason: See comment - Comment: flushed earlier) 5 mL, Intravenous, EVERY 8 HOURS, First dose on Tue10/09/17 at 1130, Until Discontinued, Routine sodium chloride 0.9 % flush 5 mL 0200 (Not Given - Pro vider: Isela Vann RN - Reason: Contraindicated - Comment: flushed earlier)1400 (Not Given - Provider: Jeremias Rubio RN - Reason: Contraindicated) 0200 (Not Given - Provider: Isela Vann, RN - Reason: See comment - Comment: flushed earlier)1447 (Given - Provider: Emily Russo RN) 0200 (Not Given - Provider: Isela Vann, RN - Reason: See comment - Comment: flushed earlier) 5 mL, Intravenous, EVERY 12 HOURS, First dose on 10/09/17 at 1400, Until Discontinued, Routine tamsulosin (FLOMAX) ER capsule 0.4 mg 0917 (Given - Pr ovider: Jeremias Rubio RN) 0805 (Given - Provider: Emily Russo, CORNELIUS) 0850 (Given - Provider: Emily Russo RN) 0.4 mg, Oral, DAILY, First dose on [...] CORNELIUS) 2.5 mg, Oral, ONCE, 1 dose, 10/16/17 at 1700, Routine Continuous Medication Order [...] Nebulization, EVERY 4 HOURS PRN, S tarting Tue10/16/17 at 0915, Until Tue10/18/17 at 1137, [...]
Routine documented in this encounter Care Teams Brass Cleaner Relationship Specialty Start Date End Date Es Clinton PA PCP - General Family Medicine 08/09/17 10/09/19 [address] [place] [address] documented as of this encounter
--- OUTSIDE RECORDS SUMMARY | 2021-10-28 14:13 | XMS_ITS | Encounter Summary ---
:1955 [place] [address] Care Team Providers Name Role Phone Es [...] Expiration Date Visits Requ ested Visits Authorized [id number] 1 1 Encounter Details Date Type Department Care Team Description 10/07/2017 Anesthesia Event Main Operating Room Rex Shanks MD [facility] [address] [facility] [place] [address] [facility] [place] [address] Anesthesia Record Procedure Summary Procedure Name Responsible Anesthesia Start Anesthesia Stop Anesthesiologist Time Time ENDOSCOPIC HARVEST Rex Grande MD 10/07/17 0830 10/07/17 1443 VEIN(S) FOR CABG (WRVU 0.31) (N/A Leg) Events Date Time Event Comment 10/07/2017 0829 0830 AN Verify 0830 Start 0830 An Start Data 0844 An Induction 0848 An Intubation 0853 JAYLON PROBE ONLY 0901 Anesthesia Ready 0928 Procedure Start 0940 Sternotomy 1010 AN AORTIC CANNULA 1022 AN Venous Cannula 1046 Quick Note Antithrombin III 1118 units 1052 CV Bypass init 1056 An Clamp start 1228 Rewarming 1245 Sales Account Coordinator 1246 An Clamp Remove 1309 CP Bypass Ended 1315 Protamine 1330 Decannulation 1342 Chest Closed 1419 an stop data 1443 Recovery or ICU Handoff Patient care was transferred to the destination unit staff after review of the patient's medica l history, current anesthetic/surgi nnamdi status and plan, according to the Provider Handoff Checklist. 1443 Stop Name Total Midazolam 5 mg fentaNYL 1,000 mcg Propofol 210 mg Propofol INF 273.92 mg PHENYLephrine 240 mcg PHENYLephrine INF 1,580 mcg Vecuronium 20 mg Heparin 74,000 Units Protamine 310 mg Tranexamic Acid 1,290 mg Tranexamic Acid INF 602.28 mg Insulin Regular Human 20 Units Insulin Regular INF 22.17 Units cefTRIAXone 2 g Vancomycin 2 g nitroGLYCERIN INF 227 mcg Vasopressin INF 14.3 Units Vasopressin 35 Units EPINEPHrine INF 342 mcg Furosemide 20 mg EPINEPHrine 20 mcg NORepinephrine INF 750 mcg calcium chloride 100 mg/mL (10 %) injection 500 mg Sodium Chloride 0.9% 1,900 mL lactated Ringers infusion 1,000 mL 600 mL Agents Name O2 Air N2O Isoflurane (et) Blood No blood administrations on file. Lines, Drains, and Airways Type Details Placement Removal PIV 10/07/17; 0725; 10/07/17 0725 by 10/09/17 1404 b y metacarpal vein (top of Damaris Min, [place] Alayna uribe M, hand), left; RN RN [id number] catheter system; 18 gauge, 1 in length; C Mechelle RN; distraction, intradermal injection, tolerated well, appears comfortable, age-appropriate response; site symptomatic, removed per policy/procedure, site care per policy/procedure, catheter/device intact; 10/09/17; 1404 Incision 10/07/17; 0830; chest; 10/07/17 0830 by 01/30/20 0000 by vertical; LDA not present Abdoulaye Myers, Donna Brothers RN upon assessment; 01/30/20 Arterial Line 10/07/17; 0842; radial 10/07/17 0842 by [facility], 1224 by artery, right; 20 gauge; MD Primitivo Zazueta Josie Z, RN Sterile Prep, Sterile Gloves; 10/09/17; 1224 Urethral Catheter 10/07/17; 0850; Surgery 10/07/17 0850 by 10/11 2100 by longer than 2 hours; Abdoulaye Myers, CORNELIUS sanchez, Leah Thornton, Physician order; RN indwelling catheter with core temperature probe; latex; 14; inserted at this facility (using sterile technique); 1; 5; 10; none; drainage bag to dependent drainage; urethral catheter removed; LDA not present upon assessment; 10/11/17; 2100 ETT Mask Ventilation: 10/07/17 0853 by [place], 10/08/17 0635 by Difficult (3); ETT Type: MD Bhavik Zazueta Anne E, VIDEO JOURNALIST Cuffed; ETT Size: 8 mm; Mac Blade: 4; Notes: Asleep, Pre-O2, Cricoid Pressure; Attempts: 1; Laryngoscopy Grade: 2; ETT Placement Verified By: Auscultation, Capnometry; Secured at Teeth: 24 cm; Intubation Injury: Soft Tissue; Inserted by: gran CVC Single/Intro. 10/07/17; 0856; internal 10/07/17 0856 by [place], 10/09/17 1224 by jugular vein, right; MD Primitivo Zazueta Jo sie Z RN Ultrasound Guidance; Yes; 9 Fr; JAYLON, Transducer; CVC Protocol Performed; 10/09/17; 1224 PA Catheter 10/07/17; 0900; jugular 10/07/17 0900 by [place], 1429 by vein, right internal; MD Dalia Zazueta, Padmini Doe, RN VIP; 8 Fr; CVC Protocol Performed; no longer indicated, removed per policy, catheter intact; 10/08/17; 1429 Incision 10/07/17; 0925; knee; 10/07/17 0925 by 01/30/20 0000 by other (see comments) Abdoulaye Myers, Donna Baumann RN (medial knee incision with proximal and distal stab for vein harvest); LDA not present upon assessment; 01/30/20 Drain/Device Site 10/07/17; 1209; Left; 10/07/17 1209 by 8 0000 by medial; knee; collapsible Abdoulaye Myers, Shanika Narayanan RN closed device (10 fr flat drain); 10/08/17; (d/c'd on waterproof coating machine tender, ? time) Chest Tube 10/07/17; 1302; Left; 10/07/17 1302 by 10/09/17 1225 by anterior; mediastinum; 28 Abdoulaye Myers RN Ma rquis, Carmen Mckeon RN fr straight; 10/09/17; 1225 Chest Tube 10/07/17; 1302; Right; 10/07/17 1302 by 10/09/17 1225 by anterior; other (see Abdoulaye Myers RN Marquis, Josie Z, RN comments) (pericardial); 28 fr angled; 10/09/17; 1225 documented in this encounter Social History Tobacco [...] encounter OR Notes Anesthesia Postprocedure Evaluation - Rex Grande MD - 10/07/2017 3:34 PM EDT [facility] [place] Anesthesiology Post-procedure Note Patient: Cristian Miner Procedure Summary Date Anesthesia Start Anesthesia Stop Room / Location 10/07/17 0830 1443 [facility] OR [facility] MH MAIN OR Procedure Diagnosis Surgeon Responsible Provider ENDOSCOPIC HARVEST VEIN(S) FOR CABG (WRVU 0.31) (N/A Leg); @VALVULOPLASTY, MITRAL VALVE, W\CPB; W\PROSTHETIC RING (WRVU 43.28) (N/A ); @CABG, VEIN ONLY;TWO CORONARY VENOUS GRAFTS (WRVU 38.45) (N/A ) (CAD, MR) Juan Alberto Tiwari MD Burrage, Peter S, MD All Anesthesia Providers: Anesthesiologist: Rex Grande MD; Lynn Mathew MD News Agent: José Man MD Most Recent Vitals: 10/07/17 1435 BP: 124/64 Pulse: 83 Resp: 16 Temp: SpO2: Pain Patient Location: [facility] Level of Consciousness: Sedated (Pharmacologic/Intentional) Pain Management: PONV: Cardiovascular Status: Hypotension (received treatment) Respiratory Status: Intubated/Ventilated Postoperative Fluid Status: Intravascular EUvolemia Possible Anesthetic Complications: NONE apparent at time of evaluation Final Primary Anesthesia Type: General (The anesthetic type performed was the same as planned.) Comments: Anesthesia Preprocedure Evaluation - Lynn Mathew MD - 10/06/2017 3:50 PM EDT Pre-Anesthesia Evaluation for: Cristian Miner a 61 y.o. male. Procedure(s): @CABG, USING ARTERIAL GRAFT;SINGLE ARTERIAL GRAFT (WRVU 33.75) @CABG, VENOUS & ARTERIAL GRAFT;SINGLE VEIN GRAFT (WRVU 3.61) ENDOSCOPIC HARVEST VEIN(S) FOR CABG (WRVU 0.31) @VALVULOPLASTY, MITRAL VALVE, W\CPB; W\PROSTHETIC RING (WRVU 43.28) Patient Active Problem List Diagnosis ??? Morbid obesity ??? Atrial fibrillation ??? MICHELLE (obstructive sleep apnea) ??? SOB (shortness of breath) ??? Palpitations ??? Mitral regurgitation ??? CAD (coronary artery disease) Past Medical History: Diagnosis Date ??? CAD (coronary artery disease) angioplasty Past Surgical History: Procedure Laterality Date ??? KNEE ARTHROSCOPY ??? LAPAROTOMY diverticula ? ? PRG JAYLON REAL TIME IMG 2D W PRB IMG ACQUIS I&R N/A 09/15/2017 TRANSESOPHAGEAL ECHOCARDIOGRAM (WRVU 2.55) performed by Td Ayala MD at [facility] MAIN OR Social History Substance Use Topics ??? Smoking [...] normal PE comment: Distant BS Dental Assessment: - normal exam Misc Assessment: Patient is wearing No contact(s). IV access: Peripheral line Anesthesia Plan: ASA 3 general, with a(n) intravenous induction 61 y.o. year-old male with CAD (s/p angioplasty ; cath in 07/2017), pAFib (rate controlled on metoprolol, anticoagulated on apixaban), severe MR and progressive HF, scheduled for CABG + MVR. NPO. Denies GERD. Denies dysphagia, gastric/esophageal pathologies. MEDICAL HISTORY is also significant for BMI40, MICHELLE (CPAP), former smoker quit . Denies GERD symptoms. JAYLON 09/15/17: Normal biventricular size and function, no RWMA. Severe posteriorly directed MR EROA 0.31. No GRACIA. No /AI. EKG: Sinus tien 56, q's II, III, aVF RHC/LHC 08/16/17: PA 43/17 (28), PCWP 22, CI/CO 2.3/5.5. R d, LAD mild diffuse, LCx mild diffuse, multiple discrete 65% OM2 with normal distal flow, RCA mild 55% with dissection, 50% distal. ANESTHESIA HISTORY: Prev GA for laparotomy and knee arthroscopy without significant complications. No airway records available in [facility] LABS: Hb 15.3, Plt 172k, K4.0, BUN/Cr 25/1.05 ANESTHETIC PLAN - GA, ETT - Standard ASA monitors + preinduction arterial line - Central venous catheter (right IJ cordis) and PA catheter - JAYLON monitoring. Patient interviewed specifically for and has no contraindications to JAYLON. Region - Intrathoracic Cardiac Informed Consent: Anesthetic plan and risks discussed with patient. Use of blood products discussed with patient who consented to blood products. Plan discussed with resident. PAT Staff Note documented in this encounter Plan of Treatment Upcoming Encounters Date Type Specialty Care Team Description 11/11/2021 Office Visit Nephrology Jonn Zuniga MD [facility] NEPHROLOGY [place], [place] [address] (Wo rk) documented as of this encounter Visit Diagnoses Not on filedocumented in this encounter Administered Medications Inactive Administered Medications - up to 3 most recent administrations Medication Order MAR Action Action Date Dose Rate Site calcium chloride 100 mg/mL (10 %) Given 10/07/2017 1:20 PM EDT 5 00 mg injection ONCE PRN, Starting on Tue10/07/17 at 1242, Until Tue10/07/17 at 1421, Intra-Operative (Intra-Procedure), Routine Given 10/07/2017 12:42 PM EDT 1 g Cent ral Line cefTRIAXone (ROCEPHIN) injection Given 10/07/2017 9:01 AM EDT 2 g PRN, Starting on Tue10/07/17 at 0844, Until Tue10/07/17 at 1443, Anesthesia Intra-op, Routine EPINEPHrine (ADRENALIN) injection Given 10/07/2017 10:19 AM EDT 4 mcg PRN, Starting on Tue10/07/17 at 1005, Until Tue10/07/17 at 1443, Anesthesia Intra-op, Routine Given 10/07/2017 10:16 AM EDT 4 mcg Given 10/07/2017 10:12 AM EDT 4 mcg EPINEPHrine 2 mg in dextrose 5% Restarted 10/07/2017 12:48 PM 2 mcg/min 15 mL/hr 250 mL infusion EDT CONTINUOUS PRN, Starting on Tue10/07/17 at 1021, Until Tue10/07/17 at 1443, Anesthesia Intra-op Rate/Dose Change 10/07/2017 10:27 AM EDT 4 mcg/min 30 mL/hr New Bag 10/07/2017 10:21 AM EDT 2 mcg/min 15 mL/hr fentaNYL 50 mcg/mL multi-dose injection Given 10/07/2017 9:42 AM EDT 100 mcg PRN, Starting on Tue10/07/17 at 0843, Until Tue10/07/17 at 1443, Pain, Anesthesia Intra-op, Routine Given 10/07/2017 9:40 AM EDT 150 mcg Given 10/07/2017 9:37 AM EDT 150 mcg furosemide (LASIX) injection Given 10/07/2017 10:25 AM EDT 20 mg PRN, Starting on Tue10/07/17 at 1025, Until Tue10/07/17 at 1443, Anesthesia Intra-op, Routine heparin (porcine) injection Given 10/07/2017 10:37 AM EDT 30,000 Units PRN, Starting on Tue10/07/17 at 1004, Until Tue10/07/17 at 1443, Anesthesia Intra-op, Routine Given 10/07/2017 10:12 AM EDT 10,000 Units Given 10/07/2017 10:04 AM EDT 34,000 Units insulin regular human Rate/Dose Change 10/07/2017 12:25 10 Units/hr 1 0 mL/hr (HumuLIN;NovoLIN) 1unit/mL PM EDT in sodium chloride 0.9% infusion CONTINUOUS PRN, Starting on Tue10/07/17 at 1050, Until Tue10/07/17 at 1443, Anesthesia Intra-op, Routine Rate/Dose Change 10/07/2017 11:30 AM EDT 8 Units/hr 8 mL/hr New Bag 10/07/2017 10:50 AM EDT 5 Units/hr 5 mL/hr insulin regular human VIAL injection Given 10/07/2017 12:45 PM EDT 5 Units PRN, Starting on Tue10/07/17 at 1130, Until Tue10/07/17 at 1443, Anesthesia Intra-op, Routine Given 10/07/2017 12:34 PM EDT 5 Units Given 10/07/2017 12:25 PM EDT 5 Units lactated Ringers infusion 1,000 mL New Bag 10/07/2017 8:30 AM EDT 1,000 mL, at 100 mL/hr, Intravenous, CONTINUOUS, Starting on Tue10/07/17 at 0745, Until Tue10/07/17 at 1445, Day of Surgery (Day of Procedure) New Bag 10/07/2017 7:30 AM EDT 1,000 mLs 100 mL/hr midazolam (PF) (VERSED) 1 mg/mL multi-dose Given 10/07/2017 12:5 8 PM EDT 1 mg injection PRN, Starting on Tue10/07/17 at 0830, Until Tue10/07/17 at 1443, Sleep, Anesthesia Intra-op, Routine Given 10/07/2017 12:47 PM EDT 1 mg Given 10/07/2017 10:18 AM EDT 1 mg nitroGLYcerin 50 mg in Rate/Dose Change 10/07/2017 10:11 10 mcg/min 3 mL/hr dextrose 5% 250 mL infusion AM EDT CONTINUOUS PRN, Starting on Tue10/07/17 at 0959, Until Tue10/07/17 at 1443, Anesthesia Intra-op, Routine Rate/Dose Change 10/07/2017 10:04 AM EDT 1 mcg/min 0.3 mL/hr New Bag 10/07/2017 9:59 AM EDT 10 mcg/min 3 mL/hr NORepinephrine 16 mcg/mL Rate/Dose Change 10/07/2017 1:56 6 mcg/min 22.5 mL/hr (standard ADULT and Pedi PM EDT greater than 20 kg) infusion CONTINUOUS PRN, Starting on Tue10/07/17 at 1201, Until Tue10/07/17 at 1443, Anesthesia Intra-op, Routine Rate/Dose Change 10/07/2017 1:35 PM EDT 8 mcg/min 30 mL/hr Rate/Dose Change 10/07/2017 12:57 PM EDT 5 mcg/min 18.8 mL/hr PHENYLephrine Rate/Dose Change 10/07/2017 10:00 50 mcg/min 37.5 mL/hr (STUART-SYNEPHRINE) 20 mg in AM EDT sodium chloride 250 mL (standard ADULT & Pedi greater than 20kg) infusion CONTINUOUS PRN, Starting on Tue10/07/17 at 0844, Until Tue10/07/17 at 1443, Anesthesia Intra-op, Routine Rate/Dose Change 10/07/2017 9:57 AM EDT 40 mcg/min 30 mL/hr Rate/Dose Change 10/07/2017 9:54 AM EDT 30 mcg/min 22.5 mL/hr PHENYLephrine in NS (PF) (STUART-SYNEPHRINE) 0.8 Given 9:30 AM EDT 80 mcg mg/10 mL (80 mcg/mL) multi-dose injection Syrg PRN, Starting on Tue10/07/17 at 0844, Until Tue10/07/17 at 1443, Anesthesia Intra-op, Routine Given 10/07/2017 9:27 AM EDT 80 mcg Given 10/07/2017 8:44 AM EDT 80 mcg propofol (DIPRIVAN) 10 mg/mL bolus injection Given 8 1:24 PM EDT 20 mg (Anesthesia) PRN, Starting on Tue10/07/17 at 0844, Until Tue10/07/17 at 1443, Anesthesia Intra-op Given 10/07/2017 1:22 PM EDT 20 mg Given 10/07/2017 1:20 PM EDT 20 mg propofol (DIPRIVAN) infusion New Bag 10/07/2017 1:32 PM 30 mcg/kg/min 23.1 mL/hr CONTINUOUS PRN, Starting on EDT Tue10/07/17 at 1332, Until Tue10/07/17 at 1444, Anesthesia Intra-op, Routine protamine injection Given 10/07/2017 1:16 PM EDT 300 mg PRN, Starting on Tue10/07/17 at 1314, Until Tue10/07/17 at 1443, Anesthesia Intra-op, Routine Given 10/07/2017 1:14 PM EDT 10 mg sodium chloride 0.9% infusion New Bag 10/07/2017 9:01 AM EDT CONTINUOUS PRN, Starting on Tue10/07/17 at 0901, Until Tue10/07/17 at 1443, Anesthesia Intra-op tranexamic acid (CYKLOKAPRON) 100 mg/mL Given 10/07/2017 9:01 AM EDT 1,290 mg bolus injection (Anesthesia) PRN, Starting on Tue10/07/17 at 0901, Until Tue10/07/17 at 1443, Anesthesia Intra-op, Routine tranexamic acid (CYKLOKAPRON) New Bag 10/07/2017 9:01 AM 1 mg/kg/h r 1.3 mL/hr injection EDT CONTINUOUS PRN, Starting on Tue10/07/17 at 0901, Until Tue10/07/17 at 1443, Anesthesia Intra-op, Routine vancomycin (VANCOCIN) injection Given 10/07/2017 9:01 AM EDT 2 g PRN, Starting on Tue10/07/17 at 0844, Until Tue10/07/17 at 1443, Anesthesia Intra-op, Routine vasopressin (VASOSTRICT) 0.5 Rate/Dose 10/07/2017 1:30 0.08 Units/mi n 9.6 mL/hr units/mL IV infusion Change PM EDT (Anesthesia) CONTINUOUS PRN, Starting on Tue10/07/17 at 1007, Until Tue10/07/17 at 1443 Restarted 10/07/2017 12:48 PM EDT 0.08 Units/min 9.6 mL/hr Rate/Dose Change 10/07/2017 10:17 AM EDT 0.12 Units/min 14.4 mL/hr vasopressin (VASOSTRICT) injection Given 10/07/2017 10:37 AM EDT 4 Units PRN, Starting on Tue10/07/17 at 0958, Until Tue10/07/17 at 1443, Bleeding, Anesthesia Intra-op, Routine Given 10/07/2017 10:34 AM EDT 4 Units Given 10/07/2017 10:31 AM EDT 3 Units vecuronium (NORCURON) injection Given 10/07/2017 8:44 AM EDT 20 mg PRN, Starting on Tue10/07/17 at 0844, Until Tue10/07/17 at 1443, Anesthesia Intra-op, Routine documented in this encounter Care Teams Water Pipe Installer Relationship Specialty Start Date End Date Es Clinton PA PCP - General Family Medicine 08/09/17 10/09/19 [address] [place] [address] documented as of this encounter
--- OUTSIDE RECORDS SUMMARY | 2021-10-28 14:13 | XMS_ITS | Encounter Summary ---
:1955 Author Organization [facility] [place] [address] Care Team Providers Name Role Phone Es Clinton Primary Care Provider Encounter Details Date Type Department Care Team Description 09/05/2017 Telephone Cardiac Surgery Natalie Stockton PA [facility] [place] [address] [place] [address] [phone] (Wo rk) Social History Tobacco Use Types [...] this encounter Miscellaneous Notes Telephone Encounter - Natalie Stockton PA - 09/05/2017 3:25 PM EDT Received a phone call from nurse Pat at [facility] this afternoon. Cristian Miner is a 61 y.o. male who saw Dr. Tiwari on 08/25/17 in an office visit for consultation regarding mitral regurgitation. His called into [facility] this afternoon asking for a refillof metoprolol, which is documented as 37.5mg BID. However, his states that Dr. Tiwari instru cted him to increase to 37.5 TID. Upon chart review, Dr. Tiwari's note makes no mention of medication changes, and his vitals werewithout indication to increase BB dosage (HR NSR 60s, BP 125/53). Plan: 1) Instructed nurse to instruct patient/family to keep metoprolol at 37.5 BID as written for. 2) Continue monitoring HR and BP, and follow-up as scheduled for JAYLON. Nurse verbalized understanding and agreed to plan. NORBERTO Collado 3:32 PM 09/05/17 Cardiac Surgery documented in this encounter Plan of Treatment Upcoming Encounters Date Type Specialty Care Team Description 11/11/2021 Office Visit Nephrology Jonn Zuniga MD [facility] NEPHROLOGY [place], [place] [address] (Wo rk) documented as of this encounter Visit Diagnoses Not on filedocumented in this encounter Care Teams Chromosomal Disorders Counselor Relationship Specialty Start Date End Date Es Clinton PA PCP - General Family Medicine 08/09/17 10/09/19 [address] [place] [address] documented as of this encounter
--- OUTSIDE RECORDS SUMMARY | 2021-10-28 14:13 | XMS_ITS | Encounter Summary ---
:1955 Author Organization [facility] Address [address] [place] [address] Care Team Providers Name Role Phone Es [...] Expiration Date Visits Requ ested Visits Authorized [id number] 1 1 Encounter Details Date Type Department Care Team Description 10/12/2017 Anesthesia Event Main Operating Room Kaci Bartlett MD [address] [address] [facility] [place] [address] [phone] Anesthesia Record Procedure Summary Procedure Name Responsible Anesthesia Start Anesthesia Stop Time Anesthesiologist Time CARDIOVERSION-ELECT Kaci Desir MD 10/12/17 1107 10/12/17 1123 VINAYAK (WRVU 2.25) (N/A ) Events Date Time Event Comment 10/12/2017 1106 1107 AN Verify 1107 Start 1107 An Start Data 1109 Anesthesia Ready 1115 AN Defib 1122 an stop data 1123 Recovery or ICU Handoff Patient care was transferred to the destination unit staff after review of the patient's medica l history, current anesthetic/surgi nnamdi status and plan, according to the Provider Handoff Checklist. 1123 Stop Name Total Propofol 100 mg PHENYLephrine 80 mcg Sodium Chloride 0.9% 50 mL Agents Name O2 Auxiliary Flowmeter 1 Blood No blood administrations on file. Lines, Drains, and Airways Type Details Placement Removal Incision 10/07/17; 0830; chest; 10/07/17 0830 by Louis, 1 04/01/19 0000 by El[place], vertical; LDA not present CORNELIUS Louise RN upon assessment; 01/30/20 Incision 10/07/17; 0925; knee; 10/07/17 0925 by Louis, 0000 by [place], other (see comments) CORNELIUS Louise RN (medial knee incision with proximal and distal stab for vein harvest); LDA not present upon assessment; 01/30/20 PIV 10/09/17; 1404; median 10/09/17 1404 by Fredi, 10/12/17 2030 by vein (underside of arm), CORNELIUS Concepcion Heather M, RN left; [id number] catheter system; 20 gauge, 1 in length; MIRELA RN; distraction, tolerated well, appears comfortable; 1; median vein (underside of arm), right; site symptomatic, removed per policy/procedure, site care per policy/procedure, catheter/device intact; 10/12/17; 2029 documented in this encounter Social History Tobacco [...] encounter OR Notes Anesthesia Postprocedure Evaluation - Kaci Desir MD - 10/12/2017 11:31 AM EDT [facility] Department of Anesthesiology Post-procedure Note Patient: Cristian Miner Procedure Summary Date Anesthesia Start Anesthesia Stop Room / Location 10/12/17 1108 1123 [facility] SURGERY / [facility] MAIN OR Procedure Diagnosis Surgeon Responsible Provider CARDIOVERSION-ELECTIVE (WRVU 2.25) (N/A ) (AFIB) Romel Call PA Root, Kristen M, MD All Anesthesia Providers: Anesthesiologist: Kaci Desir MD COOKY MACHINE OPERATOR: Shannon Ely CRNA; Arleen Addison CRNA Most Recent Vitals: 10/12/17 0830 BP: 107/60 Pulse: 79 Resp: 23 Temp: 36.5 ??C (97.7 ??F) SpO2: 96% Pain Patient Location: PACU/[facility] Level of Consciousness: Awake and Alert Pain Management: Satisfactory Analgesia PONV: None Cardiovascular Status: At Baseline and Hemodynamically Stable Respiratory Status: At Baseline and Room Air Postoperative Fluid Status: Intravascular EUvolemia Possible Anesthetic Complications: NONE apparent at time of evaluation Final Primary Anesthesia Type: MAC (The anesthetic type performed was the same as planned.) Comments: Kaci Desir MD Anesthesia Preprocedure Evaluation - Kaci Desir MD - 10/11/2017 4:43 PM EDT Images from the original note were not included. Pre-Anesthesia Evaluation for: Cristian Miner a 61 y.o. male. Procedure(s): CARDIOVERSION-ELECTIVE (WRVU 2.25) Patient Active Problem List Diagnosis ??? Morbid [...] 2.55) performed by Td Ayala MD at [facility] MAIN OR ??? PRO CABG, VEIN, TWO N/A 10/07/2017 @CABG, VEIN ONLY;TWO CORONARY VENOUS GRAFTS (WRVU 38.45) performed by Juan Alberto Tiwari MD at [facility] MAIN OR ??? PRO ENDOSCOPY W/VIDEO-ASST VEIN HARVEST, CABG N/A 10/07/2017 ENDOSCOPIC HARVEST VEIN(S) FOR CABG (WRVU 0.31) performed by Juan Alberto Tiwari MD at [facility] MAIN OR ??? PRO MITRALPLASTY W PROSTHETIC RING N/A 10/07/2017 @VALVULOPLASTY, MITRAL VALVE, W\CPB; W\PROSTHETIC RING (WRVU 43.28) performed by Juan Alberto Tiwari MD at [facility] MAIN OR Social History Substance Use Topics ??? Smoking status: Former Smoker Quit date: 08/17/1995 ??? Smokeless tobacco: Never Used ??? Alcohol use Yes Comment: one a month History Drug Use No No Known Allergies Medications: MAR and/or home medications have been reviewed. Physical Exam: Most Recent Vitals: 10/11/17 1236 BP: 106/47 Pulse: (!) 106 Resp: 28 Temp: SpO2: 98% Body mass index is 45.7 kg/(m^2). Height: 172 cm (5' 7.72) Weight: 135.2 kg (298 lb 1 oz) Airway Assessment: Mallampati: II TM distance: >3 FB Neck ROM: full Cardiovascular Assessment: Rhythm: irregular Rate: abnormal Pulmonary Assessment: breath sounds clear to auscultation pulmonary exam normal Dental Assessment: - normal exam Misc Assessment: Anesthesia Plan: ASA 3 MAC, with a(n) intravenous induction 61 y.o. year-old male with CAD (s/p angioplasty ; cath in 07/2017), pAFib (rate controlled on metoprolol, anticoagulated on apixaban), severe MR and progressive HF s/p CABG/MVR on 10/07 who presentsfor cardioversion for post-op paroxysmal atrial fibrillation (on amiodarone and coumadin - INR 2.5) MEDICAL HISTORY is also significant for BMI40, MICHELLE (CPAP), former smoker quit '. Denies GERD symptoms. JAYLON 09/15/17: Normal biventricular size and function, no RWMA. Severe posteriorly directed MR EROA 0.31. No GRACIA. No /AI. RHC/LHC 08/16/17: PA 43/17 (28), PCWP 22, CI/CO 2.3/5.5. R d, LAD mild diffuse, LCx mild diffuse, multiple discrete 65% OM2 with normal distal flow, RCA mild 55% with dissection, 50% distal. ANESTHESIA HISTORY: Difficult mask, Gr2 w/ Mac for CABG Region - Other Informed Consent: Anesthetic plan and risks discussed with patient. Plan discussed with attending and COOKY MACHINE OPERATOR. PAT Staff Note documented in this encounter Plan of Treatment Upcoming Encounters Date Type Specialty Care Team Description 11/11/2021 Office Visit Nephrology Jonn Zuniga MD [facility] ER NEPHROLOGY DEPT [place] [address] (Wo rk) documented as of this encounter Visit Diagnoses Not on filedocumented in this encounter Administered Medications Inactive Administered Medications - up to 3 most recent administrations Medication Order MAR Action Action Date Dose Rate Site PHENYLephrine in NS (PF) Given 10/12/2017 11:17 AM EDT 80 mcg (STUART-SYNEPHRINE) 0.8 mg/10 mL (80 mcg/mL) multi-dose injection Syrg PRN, Starting on Tue10/12/17 at 1117, Until Tue10/12/17 at 1123, Anesthesia Intra-op, Routine propofol (DIPRIVAN) 10 mg/mL bolus injection Given 11:14 AM EDT 100 mg (Anesthesia) PRN, Starting on Tue10/12/17 at 1114, Until Tue10/12/17 at 1123, Anesthesia Intra-op sodium chloride 0.9% infusion New Bag 10/12/2017 11:08 AM EDT CONTINUOUS PRN, Starting on Tue10/12/17 at 1108, Until Tue10/12/17 at 1132, Anesthesia Intra-op documented in this encounter Care Teams Fiberglass Finisher Relationship Specialty Start Date End Date Es Clinton PA PCP - General Family Medicine 08/09/17 10/09/19 [address] [place] [address] documented as of this encounter
--- OUTSIDE RECORDS SUMMARY | 2021-10-28 14:14 | XMS_ITS | Encounter Summary ---
:1955 Author Organization [facility] [place] [address] Care Team Providers Name Role Phone Иван Seymour MD Primary Care Provider Encounter Details Date Type Department Care Team Description 07/21/2017 Telephone Cardiology at [facility] [place] [place] Clive Gill MD [facility] [place] [address] CARDIOLOGY DEPT [phone] [place], [place] [address] (Wo rk) Social History Tobacco Use Types Packs/Day Years Used Date Never Assessed Sex Assigned at Date Recorded Not on file documented as of this encounter Miscellaneous Notes Telephone Encounter - Clive Gill - 07/21/2017 6:33 PM EDT Initial Contact Date: 07/21/2017 Initial contact time: 6:33 PM Referring Provider: Dr. 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 He had been in his USOH up until yesterday when he developed mild substernal chest pain while working outside. He ignored these symptoms, however today he became increasingly fatigued and dyspneic with palpitations. He presented to the [facility] ED where he was found to be in afib with RVR. He was rate controlled with diltiazem and is now on a stable PO regimen. He is asymptomatic and not in failure by exam or imaging.He feels back to his baseline. Echo showed myxomatous leaflets with moderate to severe MR (anteriorally directed jet). There are old WMA's present that were seen on his prior echo from 2014. THe prior echo did not show any significant MR. Pertinent Diagnostic Findings: Vitals: T- AF HR-84 BP- 116/73 R- 16 SaO2- 93% on RA Exam: not in failure EKG: afib, rate 84 Troponin: negative CXR: clear Echo as above OSH Interventions: diltiazem Plan: We discussed the next best steps for workup of his MR, and agreed that he should meet with a assistant to the vice president and likely will undergo a JAYLON to better quantify his MR. From here, decisions surrounding intervention can be made. Given that he is back to his baseline, I advised that it would be reasonable to pursue this as an outpatient, provided that we can expedite his workup given the relatively acute nature of his presentation. Clive Gill MD 07/21/2017 6:33 PM documented in this encounter Plan of Treatment Upcoming Encounters Date Type Specialty Care Team Description 11/11/2021 Office Visit Nephrology Jonn Zuniga MD [facility] NEPHROLOGY [place], [place] [address] (Wo rk) documented as of this encounter Visit Diagnoses Not on filedocumented in this encounter Care Teams Powdered Sugar Pulverizer Operator Relationship Specialty Start Date End Date Иван Seymour MD PCP - General 01/13/10 08/08/17 documented as of this encounter
--- OUTSIDE RECORDS SUMMARY | 2021-10-28 14:14 | XMS_ITS | Encounter Summary ---
:1955 [place] [address] Care Team Providers Name Role Phone Es Clinton Primary Care Provider Reason for Visit Auth/Cert Specialty Diagnoses / Procedures Referred By Contact Refer red To Contact Diagnoses Mitral valve insufficiency, unspecified etiology [I34.0] Procedures CARDIAC CATHETERIZATION Referral ID Status Reason Start Date Expiration Date Visits Requ ested Visits Authorized [id number] 1 1 Encounter Details Date Type Department Care Team Description 08/16/2017 Surgery Resident Inspector Richard Deleon CARDIAC CATHETERIZATION [facility] DR Mullen [place]OLOG[place] [address] [place] [address] [phone] (Wo rk) Social History Tobacco Use Types [...] Sign Reading Time Taken Comments Blood Pressure 117/69 08/16/2017 7:56 AM EDT Pulse 54 08/16/2017 7:56 AM EDT Temperature 36.6 ??C (97.9 ??F) 08/16/2017 7:56 AM EDT Respiratory Rate 16 08/16/2017 7:56 AM EDT Oxygen Saturation 96% 08/16/2017 7:56 AM EDT Inhaled Oxygen Concentration - - Weight 124.7 kg (275 lb) 08/16/2017 7:56 AM EDT Height 175.3 cm (5' 9) 08/16/2017 7:56 AM EDT Body Mass Index 40.61 08/16/2017 7:56 AM EDT documented in this encounter Discharge Instructions Discharge InstructionsLorri Monae RN - 08/16/2017 11:38 AM EDT Activity If you are discharged the same day as your procedure, do not drive yourself home. Arrange to have another person drive. You may walk around when you get home, but keep your activity at a minimum until the morning. Do not bend over, strain, or lift heavy objects for 24 hours after the procedure. Do not participatein active sports for 48 hours. You may engage in sexual activity after 48 hours. These restrictions will not apply if the catheter was placed in a blood vessel in your arm. Catheter Insertion Area Care Take the band-aid off the catheter insertion area the morning following the procedure. You may take a shower if you wish. Wash the area with soap and water. Look for signs of infection over the next several days. A little spot of blood at the catheter insertion area is not unusual. A bruise or small lump under the skin is normal; they generally disappear in 3-4 days. For the first several days at home if you cough or sneeze, hold your groin to help prevent bleeding. Expect some mild tenderness over the area where the catheter was inserted. You will notice this after the local anesthetic (numbing medicine) wears off. This should improve during the 24-48 hours afterthe procedure. Take tylenol if needed. Contact your doctor if the discomfort worsens. Problems to Watch For If there is bright red blood flowing from the catheter insertion area: *stop what you are doing and lie down *Hold pressure steadily on the area for 15 minutes *Call for Help *If the bleeding does not stop in 15 minutes call 911 for an ambulance. If there is swelling with black and blue color at the catheter insertion area, there may be bleeding inside. Contact the doctor if there is any increase in size. Look at the insertion site for the first few days at home. Signs of infection are: *redness *Swelling *Yellow, white, green or brown foul smelling drainage. *increased soreness If you think there is an infection, take your temperature. Then call your doctor. The limb on the side where you had your catheterization should look and feel normal in its color, sensation, and temperature. If your leg becomes cool, pale, blue or changing color with numbness and tingling, contact your doctor. If you feel faint or dizzy, lie down with your feet elevated. Have someone call the doctor. If you are alert, drink fluids. How to Deal with Chest pain If you had only the cardiac catheterization, treat any angina or chest discomfort as instructed. Stop what you are doing, and sit or lie down. If prescribed, take nitroglycerin under your tongue. If the angina isn't relieved, take another nitroglycerine in 5 minutes. After another 5 minutes, a third ni troglycerine may be taken. If the angina isn't improved you should call for an ambulance to bring you to the nearest hospital emergency room. If your angina is more frequent or more sever than before, contact your doctor. We usually would not expect to have angina after an angioplasty. If you do get angina, treat it as you did before but also contact your doctor. Return to Work The doctor will usually have told you when to return to work. If you do not perform heavy physical labor, most people can return to work in a few days. Diet Follow your previous diet unless otherwise instructed. Cardiac Risk Factors If you have coronary artery disease, it is important that you help control it by reducing your cardiac risk factors. If you smoke, we urge you to stop now. If you think this is going to be a problem, let us know so that we may help you. We have dieticians who can help you learn about low fat, low cholesterol diet. Cardiac rehabilitation programs can help you set up a regular exercise program. Work with your doctor if you have high blood pressure or sugar diabetes to keep these under control. Medications ____Take your usual medications ____Medication changes: If you are taking medicines prescribed by your doctor, do not take any bhtr-fgr-snodarp medicines orherbal preparations without first discussing this with your doctor or pharmacist. There is the possibility of side effect and interactions when these are combined. Follow up Care Who to Call with Questions or Problems If there are any questions or problems that you think might be related to your cardiac cath or angioplasty, contact the armoured corps officer telephone solicitor by calling [facility] at . Patient InstructionsClive Gill - 08/16/2017 10:47 AM EDT Restart your metformin on 08/18 documented in this encounter Medications at Time of Discharge Medication Sig Dispensed Refills Start Date End Date aspirin 81 mg Tablet, Take 81 mg by mouth 0 Delayed Release (E.C.) daily. tamsulosin (FLOMAX) 0.4 mg Take 0.4 mg by 0 Capsule, Sust. Release 24 mouth daily. hr albuterol 90 mcg/actuation Inhale 2 puffs into 0 HFA Aerosol Inhaler the lungs every 4 hours as needed for Wheezing. Use with spacer furosemide (LASIX) 40 mg 20 mg daily. 0 8 03/06/2019 Tablet apixaban (ELIQUIS) 5 mg Take 5 mg by mouth 0 10/18/2017 Tablet 2 times daily. furosemide (LASIX) 40 mg Take 20 mg by mouth 0 10/18/2017 Tablet 2 times daily. metoprolol succinate Take 25 mg by mouth 0 10/18/2017 (TOPROL-XL) 25 mg Tablet daily. Indications: Sustained Release 24 take 1.5 tablets hrIndications: take 1.5 daily tablets daily nitroGLYcerin (NITROSTAT) Place 0.4 mg under 0 10/18/2017 0.4 mg Tablet, Sublingual the tongue every 5 minutes as needed for Chest pain. atorvastatin (LIPITOR) 40 Take 40 mg by mouth 0 03/10/2021 mg Tablet daily. documented as of this encounter Progress Notes Lorri Monae RN - 08/16/2017 12:13 PM EDT Patient alert and oriented, vital signs stable. Reviewed discharge instructions; patient and verbalized understanding. Copy of instruction sheet with contact numbers for questions/concerns with . Denies pain. Right radial and AC sites clean/dry/intact with no signs/symptoms of hematoma. Provided with sling to remind patient not to use right arm. Patient escorted out of department via wheelchair with ; assistance declined. Richard Damico II, MD - 08/16/2017 11:02 AM EDT Cristian Miner August 16, [phone] Resident Inspector - Preliminary Findings Procedures: coronary angiography left heart catheterization right heart catheterization oximetry Technique: Seldinger via right radial artery. Seldinger via right median antecubital vein. Heparin: 5,000U administered. Contrast: 90cc Omnipaque. Radiation: Fluoro time: 11.1 minutes, dose area product: 198,418 mGYcm2 and air kerma: 2,607 mGY. Findings: Hemodynamics: Syst Diast EDP a v m RA 9 7 5 RV 43 9 PA 43 17 28 PCW 22 35 22 Ao 98 57 78 Post Contrast: Syst Diast EDP a v m Ao 98 57 78 LV 96 25 Profile 1 Profile 2 CO 6.63 5.47 CI 2.80 2.31 TSR 941 1,141 SVR 881 1,068 TPR 338 410 PVR 72 88 Technique Estimated Sara Thermodilution Oximetry: %Sat AAo 96.0 MPA 73.0 Coronary Angiography: Right Dominant LM Entire vessel - Mild diffuse. LAD Entire vessel - Mild diffuse. LCX Entire vessel - Mild diffuse. OM2 - Proximal - 65% multiple discrete. Normal distal flow. Distal vessel large in size. RCA Entire vessel - Mild diffuse. Mid - 55% long segmental. Dissection. Distal - 50%. Complications/Events: None The attending physician was present for the entire procedure. Dr. Richard Damico M.D. performed the coronary angiography, left heart catheterization, right heart catheterization and oximetry. Prior to initiation of the procedure, the patient's frailty score was determined to be: 4 (see definitions below). Definitions from [employer] and Aging Clinical Frailty Scale: 1: VERY FIT: energetic, exercising regularly 2: WELL: no active disease symptoms, exercising occasionally or seasonally 3: MANAGING WELL: well-controlled medical problems, no exercise more than routine walking 4: VULNERABLE: symptoms limit activities, though not dependent on others for daily help. Often complain for being slowed up or tired 5: MILDLY FRAIL: more evidently impaired, needing help with high order ADLs such as finances, transportation, heavy housework, medications, walking outside, meal preparation 6: MODERATELY FRAIL: requiring help with all outside activities and with minor molded grid and parts inspector. Mayneed help with bathing and dressing. 7: SEVERELY FRAIL: completely dependent for personal care, but stable and not at high risk of dying within 6 months 8: VERY SEVERELY FRAIL: completely dependent, approaching end of life. Not likely to recover from even minor added illness 9: TERMINALLY ILL: Life expectancy of less than 6 months, even if not otherwise frail Clive Gill (Fellow) Richard Damico M.D. documented in this encounter H&P Notes Herbie Callejas MD - 08/16/2017 8:05 AM EDT Cristian Miner is a 61 y.o. male referred for cardiac catheterization by Dr Brewster after he was diagnosed with moderate to severe MR with LVEF of 45% and prior history of CAD with POBA to RCA and 60%mid LAD disease from 1995. Since then, he has been relatively stable. Was seen at [facility] for rapid afib and was then diagnosed with MR. He was since then started on apixaban for anticoagulation and his last dose was on 08/13/17. He denies orthopnea, PND, pedal edema, palpitations or syncope. Denies bleeding problems (melena, hematochezia, hematemesis or hematuria). Medications: Toprol XL 37.5 mg, Apixaban 5 mg BID, Lasix 20 mg bid, metformin 500 bid, flomax 0.4 mgdaily. (Holding apixaban, metformin and lasix for two days) BP 117/69 Pulse 54 Temp 36.6 ??C (97.9 ??F) (Temporal) Resp 16 Ht 175.3 cm (5' 9) Wt 124.7 kg (275 lb) SpO2 96% BMI 40.61 kg/m2 Phy Exam: NAD CV: Irregular, S1 S2, grade 3/6 HSM. Pulm: CTAB, no w/r/r Abd: soft, NT, ND, +BS, no bruits Vasc: 2+ bilat radial with favorable Hector's test on the R, 2+ bilat femoral pulses w/o bruits, 2+ bilat DP pulses Extr: wwp, no edema Labs pending at the time of this note No results found for: WBC, HGB, HCT, MCV, PLATELET No results found for: CREATININE, BUN, NA, K, CL, CO2 Mallampati Class II for intubation ASA class II Sedation: Moderate A/P 61 y.o. male here for cardiac catheterization. - proceed as planned - consent signed - no obvious CI to DAPT - FULL code Herbie Callejas MD 8:05 AM August 16, 2017 Compensation Manager Pager # [phone] documented in this encounter Plan of Treatment Upcoming Encounters Date Type Specialty Care Team Description 11/11/2021 Office Visit Nephrology Jonn Zuniga MD [facility] NEPHROLOGY DEPT [place], [place] [address] (Wo rk) documented as of this encounter Procedures Procedure Name Priority Date/Time Associated Diagnosis Comme nts POCT GLUCOSE Routine 08/16/2017 11:44 AM Results for this EDT procedure are i n the results section. HEMOGRAM Routine 08/16/2017 8:25 AM Mitral valve Results f or this EDT insufficiency, procedure are in unspecified etiology the res ults section. DIFFERENTIAL, Routine 08/16/2017 8:25 AM Mitral valve Results for this AUTOMATED EDT insufficiency, procedure are in unspecified etiology the res ults section. CBC (WITH DIFF) Routine 08/16/2017 8:25 AM Mitral valve EDT insufficiency, unspecified etiology BASIC METABOLIC Routine 08/16/2017 8:25 AM Mitral valve Result s for this PANEL (NON-FASTING) EDT insufficiency, proced ure are in unspecified etiology the res ults section. POCT GLUCOSE Routine 08/16/2017 8:22 AM Results f or this EDT procedure are i n the results section. documented in this encounter Results POCT Glucose (08/16/2017 11:44 AM EDT) athologist Signature POC Glucose 100 65 - 199 [facility] mg/dL [facility] Comment: Supplemental ranges: <140 mg/dL before meals <180 mg/dL all other times of the day Specimen Anatomical Collection Method Collection Time Receive d Time (Source) Location / / Volume Laterality Blood specimen 08/16/2017 11:44 8 (specimen) AM EDT 11:44 AM EDT Richard Damico II, MD POINT OF CARE TEST ORDERABLE S Performing Organization Address City/State/ZIP Code Phon e Number [place] [id number] (ABNORMAL) Differential, Automated (08/16/2017 8:25 AM EDT) athologist Signature Neutrophils % 64.6 % [facility] Neutr Abs (ANC) 4.66 1.70 - [facility] 6.10 [facility] x10(3)/[facility] LABORATORY Lymphocytes % 17.9 % [facility] Lymphocytes Abs 1.3 0.9 - 3.2 [facility] x10(3)/[facility] LABORATORY Monocytes % 12.6 % [facility] Monocyte Abs 0.9 0.3 - 0.9 [facility] x10(3)/[facility] LABORATORY Eosinophils % 2.5 % [facility] Eosinophils Abs 0.2 0.0 - 0.4 [facility] x10(3)/[facility] LABORATORY Basophils % 1.4 % [facility] Basophils Abs 0.1 0.0 - 0.1 [facility] x10(3)/[facility] LABORATORY Immature Gran % 1.00 % [facility] Comment: Immature granulocytes(IG's)percentage an d absolute count will include metamyelocytes, myelocytes, and promyelo cytes. Blood smears from CBCs yielding IG's will be scanned manually for concor dance. If this scan disagrees with the automated IG or if promyelocytes are not ed, a manual differential will be performed. Nell Gran Abs 0.07 (H) 0.00 - 0.04 x10(3)/[facility] LABORATORY Specimen Anatomical Collection Method Collection Time Receive d Time (Source) Location / / Volume Laterality Blood specimen 08/16/2017 8:25 AM 018 8:42 (specimen) EDT AM EDT Resulting Agency Comment Spec In Lab Courtney Brewster MD HEMATOLOGY ORDERABLES Performing Organization Address City/State/ZIP [place] [address] Hemogram (08/16/2017 8:25 AM EDT) P athologist Signature WBC 7.2 4.0 - 9.5 [facility] x10(3)/[facility] LABORATORY RBC 5.34 4.58 - [facility] [place] 5.54 [facility] x10(6)/[facility] LABORATORY Hemoglobin 15.2 13.7 - [facility] [place] 16.5 gm/dL [facility] Hematocrit 46.6 40.5 - [place] 48.5 % [facility] MCV 87.3 82.9 - [place] 93.1 [facility] LABORATORY MCH 28.5 27.5 - [place] 32.1 pg [facility] MCHC 32.6 32.0 - [place] 35.7 gm/dL [facility] Platelets 169 145 - 357 [facility] x10(3)/[facility] LABORATORY RDWSD 42.4 36.0 - [place] 45.0 [facility] LABORATORY RDWCV 13.2 11.4 - [facility] 13.8 % [facility] MPV 11.8 7.6 - 12.9 [facility] LABORATORY nRBC % Auto 0.0 % [facility] nRBC Abs Auto 0.000 0.000 - [facility] 0.000 [facility] x10(3)/[facility] LABORATORY Specimen Anatomical Collection Method Collection Time Receive d Time (Source) Location / / Volume Laterality Blood specimen 08/16/2017 8:25 AM 018 8:42 (specimen) EDT AM EDT Resulting Agency Comment Spec In Lab Courtney Brewster MD HEMATOLOGY ORDERABLES Performing Organization Address City/State/ZIP [place] [address] Basic Metabolic Panel (non-fasting) (08/16/2017 8:25 AM EDT) P athologist Signature Glucose Lvl 111 65 - 199 [facility] mg/dL [facility] Comment: Diabetes: >=200 mg/dL plus symp toms BUN 20 10 - 20 mg/dL [facility] Creatinine 0.86 0.80 - 1.50 mg/dL [facility] Sodium 143 135 - 145 mmol/L [facility] Potassium 4.2 3.5 - 5.0 mmol/L [facility] Comment: Please note: ??Patients with WBC >100,00 0 may have falsely elevated Potassium levels. ??For accurate Potassium quantif ication in these patients send serum separator tube (gold top) for subsequent determinations. ??Contact the Clinical Chemistry Laboratory if there are any qu estions. Chloride 106 98 - 107 mmol/L [facility] CO2 25 22 - 31 mmol/L [facility] Anion Gap 12 5 - 15 mmol/L [facility] Calcium 9.2 8.5 - 10.5 mg/dL [facility] Estimated GFR >60 >=60 [facility] Comment: The eGFR was calculated using the CKD-EP I equation. As with all creatinine based estimates of kidney function, eGFR values calculated with the CKD-EPI equation are not accurate in patients wi th acute kidney failure, extremes of body mass or the acutely ill. http://Sina/[place] News Networknkdep http://Sina/[facility] MIAMInkf eGFR 110 >=60 mL/min/1.73 m?? [facility] Comment: The eGFR was calculated using the CKD-EP I equation. As with all creatinine based estimates of kidney function, eGFR values calculated with the CKD-EPI equation are not accurate in patients wi th acute kidney failure, extremes of body mass or the acutely ill. http://Sina/[place] [employer] Networknkdep http://Sina/[facility] MIAMInkf Specimen Anatomical Collection Method Collection Time Receive d Time (Source) Location / / Volume Laterality Blood specimen 08/16/2017 8:25 AM 018 8:42 (specimen) EDT AM EDT Resulting Agency Comment Spec In Lab Courtney Brewster MD CHEMISTRY ORDERABLES Performing Organization Address City/State/ZIP Code Phon e Number [address] POCT Glucose (08/16/2017 8:22 AM EDT) P athologist Signature POC Glucose 105 65 - 199 [facility] mg/dL [facility] Comment: Supplemental ranges: <140 mg/dL before meals <180 mg/dL all other times of the day Specimen Anatomical Collection Method Collection Time Receive d Time (Source) Location / / Volume Laterality Blood specimen 08/16/2017 8:22 AM 018 8:22 (specimen) EDT AM EDT Richard Damico II, MD POINT OF CARE TEST ORDERABLE S Performing Organization Address City/State/ZIP [place] [address] documented in this encounter Visit Diagnoses Diagnosis Mitral valve insufficiency, unspecified etiology Mitral valve insufficiency, unspecified etiology documented in this encounter Administered Medications Inactive Administered Medications - up to 3 most recent administrations Medication Order MAR Action Action Date Dose Rate Site fentaNYL 50 mcg/mL multi-dose Given 08/16/2017 9:42 AM EDT 12.5 mcg injection ONCE PRN, Starting on Tue08/16/17 at 0942, Until Tue08/16/17 at 1214, Intra-Operative (Intra-Procedure), Routine heparin (porcine) injection Given 08/16/2017 9:51 AM EDT 5,000 Units ONCE PRN, Starting on Tue08/16/17 at 0951, Until Tue08/16/17 at 1214, Cath (Intra-Procedure), Routine iohexol (OMNIPAQUE) 350 mg/mL solution Given 08/16/2017 10:43 AM EDT 90 mLs ONCE PRN, Starting on Tue08/16/17 at 1043, Until Tue08/16/17 at 1214, Cath (Intra-Procedure), Routine midazolam (PF) (VERSED) 1 mg/mL multi-dose Given 08/16/2017 9:42 AM EDT 0.5 mg injection ONCE PRN, Starting on Tue08/16/17 at 0942, Until Tue08/16/17 at 1214, Cath (Intra-Procedure), Routine verapamil (ISOPTIN) injection Given 08/16/2017 9:49 AM EDT 2.5 mg ONCE PRN, Starting on Tue08/16/17 at 0949, Until Tue08/16/17 at 1214, Administer over 2 Minutes, Cath (Intra-Procedure) documented in this encounter Active and Recently Administered Medications Times are shown in EDT. PRN Medication Order 08/14/2017 08/15/2017 08/16/2017 fentaNYL 50 mcg/mL multi-dose injection (CANCELED) 0942 (Given - Provider: Suad Saab RN) ONCE PRN, Starting Tue08/16/17 at 0942, Until Tue08/16/17 at 1214, Intra- Operative (Intra-Procedure), Routine heparin (porcine) injection (CANCELED) 0951 (Given - Provider: Suad Saab RN) ONCE PRN, Starting Tue08/16/17 at 0951, Until Tue08/16/17 at 1214, Cath (Intra- Procedure), Routine iohexol (OMNIPAQUE) 350 mg/mL solution (CANCELED) 1043 (Given - Provider: Richard Damico II, MD) ONCE PRN, Starting 08/16/17 at 1043, Until e 08/16/17 at 1214, Cath (Intra- Procedure), Routine midazolam (PF) (VERSED) 1 mg/mL multi-dose injection (CANCELED) 0942 (Given - Provider: Suad Saab, CORNELIUS) ONCE PRN, Starting 08/16/17 at 0942, Until 08/16/17 at 1214, Cath (Intra- Procedure), Routine verapamil (ISOPTIN) injection (CANCELED) 0949 (Given - Provider: Clive Gill) ONCE PRN, Starting 08/16/17 at 0949, Until 08/16/17 at 1214, Administer over 2 Minutes, Cath (Intra-Procedure) documented in this encounter Care Teams Staff Development Manager Relationship Specialty Start Date End Date Es Clinton PA PCP - General Family Medicine 08/09/17 10/09/19 [address] [place] [address] documented as of this encounter
--- OUTSIDE RECORDS SUMMARY | 2021-10-28 14:14 | XMS_ITS | Encounter Summary ---
:1955 Author Organization [facility] [place] [address] Care Team Providers Name Role Phone Es Clinton Primary Care Provider Reason for Referral Diagnostic Test (Routine) - Closed Specialty Diagnoses / Procedures Referred By Contact Refer red To Contact Cardiology Diagnoses Coronary artery disease, angina presence unspecified, unspecified vessel or lesion type, unspecified whether [place] or transplanted heart Sulma Gill MD [facility] Non-Inv Card Lab Procedures Transesophageal Echocardiogram (CARRILLO) [facility] [place] [address] [place] [address] Fax: Referral ID Status Reason Start Date Expiration Date Visits V isits Requested Authorized [id number] Closed Specialty 09/09/2017 12/08/2017 1 1 Service Requested Encounter Details Date Type Department Care Team Description 07/22/2017 Orders Only Cardiology at [facility] Sulma Gill, Coronary artery [facility] disease, angina Drive [facility] presence unspecified, [place], [place] [id number] CARDI[address]Y DEPT lesion type, [phone] [place] [phone] unspecified whether [phone] [place] or trans planted (Work) heart Social History Tobacco Use Types Packs/Day Years Used Date Never Assessed Sex Assigned at Date Recorded Not on file documented as of this encounter Plan of Treatment Upcoming Encounters Date Type Specialty Care Team Description 11/11/2021 Office Visit Nephrology Jonn Zuniga MD [facility] NEPHROLOGY DEPT [place], [place] [address] (Wo rk) documented as of this encounter Procedures Procedure Name Priority Date/Time Associated Diagnosis Comme nts TRANSESOPHAGEAL Routine 10/19/2017 Results for this ECHOCARDIOGRAM (CARRILLO) procedu re are in the results section. documented in this encounter Results Transesophageal Echocardiogram (CARRILLO) (10/19/2017) Anatomical Region Laterality Modality Other Specimen (Source) Anatomical Location Collection Method / Collectio n Time Received Time / Laterality Volume 10/19/2017 Narrative 10/19/2017 10:26 AM EDT Amended Report Procedure: ?Transesophageal Echocard iogram Patient: ?GREY CRISTIAN . ? (Age): 1955(61y) Med Rec#: ? [id number] ?Sex: ?M ? Site Loc: ? Ht / Wt: ??(cm)/ (kg) ? Pt. Loc: ? Study Date: ?? 10/07/2017 ?Pt. Type: Tape: ? Reading: Lynn Mathew ([id number]) Reading: Eugene Rodas ([id number]) Employee Placement Specialist: Rex Grande ([id number] ) Employee Placement Specialist: Lynn Mathew ([id number]) Employee Placement Specialist: Emily Hancock ([id number]) Interpreting Fellow: Emily Hancock ([id number]) Diagnosis: SUMMARY: 1. PRE-OP: There is severe mitral regurg itation. This is functional MR due to restriction of posterior leaflet. The jet is eccentric and posterioly directed. Global left ventric ular systolic function is mildly reduced. ??Ejection fraction is estimate d to be 55%. Right ventricular function appears normal pre-operatively. There is no other significant valvular disease. 2. POST-OP: Status-post placement of a 3 0 mm mitral valve ring. There is a trace amount of mitral prosthesis regu rgitation. Global left ventricular systolic function appears un changed from pre-operatively, with LVEF estimated to be 55%. Right sukumar tricular global systolic function is mildly reduced. 3. See remainder of report for additiona l findings. Findings ? : Left Ventricle: ? Global left ventri cular systolic function is mildly reduced. ??Ejection fraction is estimate d to be 55%. Left Atrium: ? The left atrium is pr obably normal in size. ?There is no evidence of spontaneou s echo contrast. ?The left atrial appendage velocity is normal. ?No clot is noted in the left atria l appendage. ?No atrial septal defect is visuali zed. ?There is no patent foramen ovale v isualized. ?There is no evidence of a patent f oramen ovale by color Doppler. Right Ventricle: ? Right ventricular global systolic function is mildly reduced. Right Atrium: ? The right atrium is probably normal in size. Aortic Valve: ? The aortic valve is tricuspid. ?There is a trace of aortic regurgi tation present. Mitral Valve: ? The peak gradient ac ross the mitral valve is 5 mmHg. ?The mean gradient across the luigi l valve is 3 mmHg. ?The size of the prosthetic mitral valve is 30mm. ?The prosthetic mitral valve was im planted on 10/07/2017. ?Status-post placement of a mitral valve ring. ?There is a trace amount of mitral prosthesis regurgitation. Tricuspid Valve: ? The tricuspid kristofer ve leaflets are morphologically normal. ?There is trace tricuspid regurgita tion present. Pulmonic Valve: ? The pulmonic valve is not well visualized. ?There is trace pulmonic regurgitat ion present. Aorta: ? There is evidence of grade 2 (extensive intimal thickening) atheromatous disease of the aortic arch. ?There is evidence of grade 2 (exte nsive intimal thickening) atheromatous disease of the descending t horacic aorta. Mitral Valve ?Value ?Units (Range) ? MV peak gradient ?5 ?mmHg ? MV mean gradient ?3 ?mmHg ? This report has been electronically sign ed by: _ Lynn Mathew MD ? 10/19/2017 10:26: 27 Images reviewed and interpretation [facility] Cardiac Ultrasound Laboratory Procedure Note Lynn Mathew MD - 10/19/2017 Amended Report Procedure: Transesophageal Echocardiogra m Patient: MATILDA ANDERSON . (Age): [birth year](61y) Med Rec#: [id number] Sex: M Site Loc: Ht / Wt: (cm)/ (kg) Pt. Loc: Study Date: 10/07/2017 Pt. Type: Tape: Reading: Lynn Mathew ([id number]) Reading: Eugene Rodas ([id number]) Employee Placement Specialist: Rex Grande ([id number] ) Employee Placement Specialist: Lynn Mathew ([id number]) Employee Placement Specialist: Emily Hancock ([id number]) Interpreting Fellow: Emily Hancock ([id number]) Diagnosis: SUMMARY: 1. PRE-OP: There is severe mitral regurg itation. This is functional MR due to restriction of posterior leaflet. The jet is eccentric and posterioly directed. Global left ventric ular systolic function is mildly reduced. Ejection fraction is estimated to be 55%. Right ventricular function appears normal pre-operatively. There is no other significant valvular disease. 2. POST-OP: Status-post placement of a 3 0 mm mitral valve ring. There is a trace amount of mitral prosthesis regu rgitation. Global left ventricular systolic function appears un changed from pre-operatively, with LVEF estimated to be 55%. Right sukumar tricular global systolic function is mildly reduced. 3. See remainder of report for additiona l findings. Findings : Left Ventricle: Global left ventricular systolic function is mildly reduced. Ejection fraction is estimated to be 55%. Left Atrium: The left atrium is probably normal in size. There is no evidence of spontaneous ech o contrast. The left atrial appendage velocity is n ormal. No clot is noted in the left atrial oniel endage. No atrial septal defect is visualized. There is no patent foramen ovale visual ized. There is no evidence of a patent forame n ovale by color Doppler. Right Ventricle: Right ventricular globa l systolic function is mildly reduced. Right Atrium: The right atrium is probab ly normal in size. Aortic Valve: The aortic valve is tricus pid. There is a trace of aortic regurgitatio n present. Mitral Valve: The peak gradient across t he mitral valve is 5 mmHg. The mean gradient across the mitral kristofer ve is 3 mmHg. The size of the prosthetic mitral valve is 30mm. The prosthetic mitral valve was implant ed on 10/07/2017. Status-post placement of a mitral valve ring. There is a trace amount of mitral prost hesis regurgitation. Tricuspid Valve: The tricuspid valve chidi flets are morphologically normal. There is trace tricuspid regurgitation present. Pulmonic Valve: The pulmonic valve is no t well visualized. There is trace pulmonic regurgitation p resent. Aorta: There is evidence of grade 2 (ext ensive intimal thickening) atheromatous disease of the aortic arch. There is evidence of grade 2 (extensive intimal thickening) atheromatous disease of the descending t horacic aorta. Mitral Valve Value Units (Range) MV peak gradient 5 mmHg MV mean gradient 3 mmHg This report has been electronically sign ed by: _ Lynn Mathew MD 10/19/2017 10:26:27 Images reviewed and interpretation verif ied [facility] Cardiac Ultrasound Laboratory Unknown ECHO ORDERABLES CARRILLO IN MINOR (09/15/2017 11:44 AM EDT) P athologist Signature EF 65 HEARTLAB SYSTEM Anatomical Region Laterality Modality Other Specimen (Source) Anatomical Location Collection Method / Collectio n Time Received Time / Laterality Volume 09/15/2017 Narrative 09/15/2017 2:00 PM EDT Procedure: ?Transesophageal Echocardiogram Patient: ?MATILDA ANDERSON R ? (Age): 1955(61y) Med Rec#: ? [id number] ?Sex: ?M ? Site Loc: ? [facility] ?Ht / Wt: ??175(cm)/126(kg) Pt. Loc: ?PACU ?BSA: ?2.37 Study Date: ?? 09/15/2017 ?Pt. Type: Tape: ? Referring: SULMA GILL S Reading: Td Ayala ([id number]) Employee Placement Specialist: Ayden Mckenzie Employee Placement Specialist: Ankur García ([id number]) Diagnosis: *Nonrheumatic mitral (valve) insufficie ncy (I34.0) [...] ?The CARRILLO probe was passed by the ky rdiologist after the patient was sedated with [...] ? 09/15/2017 13:59:58 Images reviewed and interpretation verif ied [facility] Cardiac Ultrasound Laboratory Procedure Note Td Ayala MD - 09/15/2017Forma tting of this note might be different from the original. Procedure: Transesophageal Echocardiogra m Patient: MATILDA DACOSTA(Age): [birth year](61y) Med Rec#: [id number] Sex: M Site Loc: [facility] Ht / Wt: 175(cm)/126(kg) Pt. Loc: PACU BSA: 2.37 Study Date: 09/15/2017 Pt. Type: Tape: Referring: SULMA GILL S Reading: Td Ayala ([id number]) Employee Placement Specialist: Ayden Mckenzie Employee Placement Specialist: Ankur García ([id number]) Diagnosis: *Nonrheumatic mitral (valve) insufficie ncy (I34.0) [...] 09/15/2017 13:59: 58 Images reviewed and interpretation norma sony [facility] Cardiac Ultrasound Laboratory Shaun Sainz MD ECHO ORDERABLES documented in this encounter Visit Diagnoses Diagnosis Coronary artery disease, angina presence unspecified, unspecified vessel or lesion type, unspecified whether [place] or [place] splanted heart documented in this encounter Care Teams Computer Art Instructor Relationship Specialty Start Date End Date Es Clinton PA PCP - General Family Medicine 08/09/17 10/09/19 [address] [place] [address] documented as of this encounter
--- OUTSIDE RECORDS SUMMARY | 2021-10-28 14:14 | XMS_ITS | Encounter Summary ---
:1955 Author Organization [place] [address] Care Team Providers Name Role Phone Es Clinton Primary Care Provider Reason for Visit Auth/Cert Specialty Diagnoses / Procedures Referred By Contact Refer red To Contact Diagnoses Mitral valve insufficiency, unspecified etiology [I34.0] Procedures CARDIAC CATHETERIZATION Referral ID Status Reason Start Date Expiration Date Visits Requ ested Visits Authorized [id number] 1 1 Encounter Details Date Type Department Care Team Description 08/16/2017 [facility] Mit[facility] valve Petra Quiroga II, MD insufficiency, [facility] unspecified [facility] DR carlyn Mullen CARDIOLOGY DEPT. [place] [phone] Social History Tobacco Use Types Packs/Day Years [...] Sign Reading Time Taken Comments Blood Pressure 103/80 08/16/2017 11:41 AM EDT Pulse 57 08/16/2017 11:30 AM EDT Temperature 36.6 ??C (97.9 ??F) 08/16/2017 7:56 AM EDT Respiratory Rate 18 08/16/2017 11:41 AM EDT Oxygen Saturation 95% 08/16/2017 11:49 AM EDT Inhaled Oxygen Concentration - - [...] by your doctor, do not take any iatd-wfg-eawjkuv medicines orherbal preparations without first discussing this with your doctor or pharmacist. There is the possibility of side effect and interactions when these are combined. Follow up Care Who to Call with Questions or Problems If there are any questions or problems that you think might be related to your cardiac cath or angioplasty, contact the catering attendant commission agent livestock by calling [facility] at . Patient InstructionsAaronClive frank - 08/16/2017 10:47 AM EDT Restart your [...] department via wheelchair with ; assistance declined. ANT Richard Damico II, MD - 08/16/2017 11:02 AM EDT Cristian Miner August 16, 2017 [id number] [phone] Chief Engineer Production - Preliminary Findings Procedures: coronary angiography left [...] be: 4 (see definitions below). 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 Mayneed help with bathing and dressing. 7: [...] has been relatively stable. Was seen at [facility] for rapid afib and was then diagnosed [...] Callejas MD 8:05 AM August 16, 2017 Documentation Billing Clerk Pager # [phone] documented in this encounter Plan of Treatment Upcoming Encounters Date Type Specialty Care Team Description 11/11/2021 Office Visit Nephrology Jonn Zuniga MD [facility] NEPHROLOGY DEPT [place], [place] [address] (Wo rk) documented as of [...] Signature POC Glucose 100 65 - [address] [facility] mg/dL [facility] Comment: Supplemental ranges: <140 mg/dL before meals <180 mg/dL all other times of the day Specimen Anatomical Collection Method Collection Time Receive d Time (Source) Location / / Volume Laterality Blood specimen 08/16/2017 11:44 8 (specimen) AM EDT 11:44 AM EDT Richard Damico II, MD POINT OF CARE TEST ORDERABLE S Performing Organization Address City/State/ZIP Code Phon e Number [place] [id number] (ABNORMAL) Differential, Automated (08/16/2017 8:25 AM EDT) athologist Signature Neutrophils % 64.6 % [facility] Neutr Abs (ANC) 4.66 1.70 - [facility] 6.10 [facility] x10(3)/[facility] LABORATORY Lymphocytes % 17.9 % [facility] Lymphocytes Abs 1.3 0.9 - 3.[address] [facility] x10(3)/[facility] LABORATORY Monocytes % 12.6 % [facility] Monocyte Abs 0.9 0.3 - 0.[address] [facility] x10(3)/[facility] LABORATORY Eosinophils % 2.5 % [facility] Eosinophils Abs 0.2 0.0 - 0.[address] [facility] x10(3)/[facility] LABORATORY Basophils % 1.4 % [facility] Basophils Abs 0.1 0.0 - 0.[address] [facility] x10(3)/[facility] LABORATORY Immature Gran % 1.00 % [facility] Comment: Immature granulocytes(IG's)percentage an d absolute count will include metamyelocytes, myelocytes, and promyelo cytes. Blood smears from CBCs yielding IG's will be scanned manually for concor dance. If this scan disagrees with the automated IG or if promyelocytes are not ed, a manual differential will be performed. Nell Gran Abs 0.07 (H) 0.00 - 0.04 x10(3)/[facility] LABORATORY Specimen Anatomical Collection Method Collection Time Receive d Time (Source) Location / / Volume Laterality Blood specimen 08/16/2017 8:25 AM 018 8:42 (specimen) EDT AM EDT Resulting Agency Comment Spec In Lab Courtney Brewster MD HEMATOLOGY ORDERABLES Performing Organization Address City/State/[place] [address] Hemogram (08/16/2017 8:25 AM EDT) P athologist Signature WBC 7.2 4.0 - 9.[address] [facility] x10(3)/[facility] LABORATORY RBC 5.34 4.58 - [facility] 5.54 [facility] x10(6)/[facility] LABORATORY Hemoglobin 15.2 13.7 - [facility] 16.5 gm/dL [facility] Hematocrit 46.6 40.5 - [facility] 48.5 % [facility] MCV 87.3 82.9 - [facility] 93.1 [facility] LABORATORY MCH 28.5 27.5 - [facility] LUANN 32.1 pg [facility] MCHC 32.6 32.0 - [facility] 35.7 gm/dL [facility] Platelets 169 145 - [address] [facility] x10(3)/[facility] LABORATORY RDWSD 42.4 36.0 - [facility] LUANN 45.0 [facility] LABORATORY RDWCV 13.2 11.4 - [facility] 13.8 % [facility]ORY MPV 11.8 7.6 - 12.9 [facility] LABORATORY nRBC % Auto 0.0 % [facility] nRBC Abs Auto 0.000 0.000 - [facility] 0.000 [facility] x10(3)/[facility] LABORATORY Specimen Anatomical Collection Method Collection Time Receive d Time (Source) Location / / Volume Laterality Blood specimen 08/16/2017 8:25 AM 018 8:42 (specimen) EDT AM EDT Resulting Agency Comment Spec In Lab Courtney Brewster MD HEMATOLOGY ORDERABLES Performing Organization Address City/State/[place] [address] Basic Metabolic Panel (non-fasting) (08/16/2017 8:25 AM EDT) P athologist Signature Glucose Lvl 111 65 - [address] [facility] mg/dL [facility] Comment: Diabetes: >=200 mg/dL plus symp toms BUN 20 10 - 20 mg/dL [facility] Creatinine 0.86 0.80 - 1.50 mg/dL [facility] Sodium 143 135 - 145 mmol/L [facility] Potassium 4.2 3.5 - 5.0 mmol/L [facility] Comment: Please note: ??Patients with WBC >100,00 0 may have falsely elevated Potassium levels. ??For accurate Potassium quantif ication in these patients send serum separator tube (gold top) for subsequent determinations. ??Contact the Clinical Chemistry Laboratory if there are any qu estions. Chloride 106 98 - 107 mmol/L [facility] CO2 25 22 - 31 mmol/L [facility] Anion Gap 12 5 - 15 mmol/L [facility] Calcium 9.2 8.5 - 10.5 mg/dL [facility] Estimated GFR >60 >=60 [facility] Comment: The eGFR was calculated using the CKD-EP I equation. As with all creatinine based estimates of kidney function, eGFR values calculated with the CKD-EPI equation are not accurate in patients wi th acute kidney failure, extremes of body mass or the acutely ill. http://[employer]/Flipkartnkdep http://[employer]/Flipkartnkf eGFR 110 >=60 mL/min/1.73 m?? [facility] Comment: The eGFR was calculated using the CKD-EP I equation. As with all creatinine based estimates of kidney function, eGFR values calculated with the CKD-EPI equation are not accurate in patients wi th acute kidney failure, extremes of body mass or the acutely ill. http://[employer]/Flipkartnkdep http://[employer]/[facility] EDMONDnkf Specimen Anatomical Collection Method Collection Time Receive d Time (Source) Location / / Volume Laterality Blood specimen 08/16/2017 8:25 AM 018 8:42 (specimen) EDT AM EDT Resulting Agency Comment Spec In Lab Courtney Brewster MD CHEMISTRY ORDERABLES Performing Organization Address City/State/[place] [address] POCT Glucose (08/16/2017 8:22 AM EDT) P athologist Signature POC Glucose 105 65 - [address] [facility] mg/dL [facility] Comment: Supplemental ranges: <140 mg/dL before meals <180 mg/dL all other times of the day Specimen Anatomical Collection Method Collection Time Receive d Time (Source) Location / / Volume Laterality Blood specimen 08/16/2017 8:22 AM 018 8:22 (specimen) EDT AM EDT Richard Damico II, MD POINT OF CARE TEST ORDERABLE S Performing Organization Address City/State/[place] [address] documented in this encounter Visit Diagnoses Diagnosis Mitral valve insufficiency, unspecified etiology documented in this encounter Active and Recently Administered Medications Times are shown in EDT. PRN Medication Order 08/14/2017 08/15/2017 08/16/2017 fentaNYL 50 mcg/mL multi-dose injection (CANCELED) 0942 (Given - Provider: Suad Saab RN) ONCE PRN, Starting 08/16/17 at 0942, Until 08/16/17 at 1214, Intra- Operative (Intra-Procedure), Routine heparin (porcine) injection (CANCELED) 0951 (Given - Provider: Suad Saab RN) ONCE PRN, Starting 08/16/17 at 0951, Until 08/16/17 at 1214, Cath (Intra- Procedure), Routine iohexol (OMNIPAQUE) 350 mg/mL solution (CANCELED) 1043 (Given - Provider: Richard Damico II, MD) ONCE PRN, Starting 08/16/17 at 1043, Until 08/16/17 at 1214, Cath (Intra- Procedure), Routine midazolam (PF) (VERSED) 1 mg/mL multi-dose injection (CANCELED) 0942 (Given - Provider: Suad Saab RN) ONCE PRN, Starting 08/16/17 at 0942, Until 08/16/17 at 1214, Cath (Intra- Procedure), Routine verapamil (ISOPTIN) injection (CANCELED) 0949 (Given - Provider: Clive Gill) ONCE PRN, Starting 08/16/17 at 0949, Until 08/16/17 at 1214, Administer over 2 Minutes, Cath (Intra-Procedure) documented in this encounter Care Teams Juice Tester Relationship Specialty Start Date End Date Es Clinton PA PCP - General Family Medicine 08/09/17 10/09/19 [address] [place] [address] documented as of this encounter
--- OUTSIDE RECORDS SUMMARY | 2021-10-28 14:14 | XMS_ITS | Encounter Summary ---
:1955 Author Organization [facility] [place] [address] Care Team Providers Name Role Phone Иван Seymour MD Primary Care Provider Encounter Details Date Type Department Care Team Description 07/22/2017 Orders Only Cardiology at [facility] Clive Gill, Mitral valve [facility] MD insufficiency, [facility] [place] [address] CARDIOLOGY DEPT [place], [place] [address] Social History Tobacco Use Types Packs/Day Years Used Date Never Assessed Sex Assigned at Date Recorded Not on file documented as of this encounter Plan of Treatment Upcoming Encounters Date Type Specialty Care Team Description 11/11/2021 Office Visit Nephrology Jonn Zuniga MD [facility] NEPHROLOG[facility] DEPT [place], [place] [address] (Wo rk) documented as of this encounter Visit Diagnoses Diagnosis Mitral valve insufficiency, unspecified etiology documented in this encounter Care Teams Medical Donation Professional Relationship Specialty Start Date End Date Иван Seymour MD PCP - General 01/13/10 08/08/17 documented as of this encounter
--- OUTSIDE RECORDS SUMMARY | 2021-10-28 14:14 | XMS_ITS | Encounter Summary ---
:1955 Author Organization [facility] [place] [address] Care Team Providers Name Role Phone Es Clinton Primary Care Provider Reason for Visit Reason Comments Coronary Artery Disease Chest Pain Atrial Fibrillation Obstructive Sleep Apnea Shortness of Breath Palpitations Mitral Valve Regurgitation Myxomatous leaflets by Echo Encounter Details Date Type Department Care Team Description 08/09/2017 Office Visit Cardiology at [facility] Sharif Brewster Atrial fibrillation, unspeci fied type; [facility] MD Pacheco Coronary artery disease, angina presence unspecified, unspecified vessel or lesion type, unspecified whether three affiliated or transplanted heart; [facility] Mitral valve insufficiency, unspecified etiology; [place], [place] Morbid obesity; [phone] CARDIOLOGY DEPT MICHELLE (obstructive sleep apnea); [phone] [place], [place] [address] Palpitations; [phone] SOB (shortness of breath) (Work) Social History Tobacco Use Types Packs/Day Years Used Date Former Smoker Smokeless Tobacco: Never Used Sex Assigned at Date Recorded Not on file documented as of this encounter Last Filed Vital Signs Vital Sign Reading Time Taken Comments Blood Pressure 122/70 08/09/2017 2:04 PM EDT Pulse 69 08/09/2017 2:04 PM EDT Temperature - - Respiratory Rate - - Oxygen Saturation 94% 08/09/2017 2:04 PM EDT Inhaled Oxygen Concentration - - Weight 122.5 kg (270 lb) 08/09/2017 2:04 PM EDT Height - - Body Mass Index - - documented in this encounter Progress Notes Sharif Brewster MD - 08/09/2017 2:00 PM EDT Images from the original note were not included. Impression: . Morbid obesity . Moderate to severe MR . LV regional wall motion abn, EF 45% since at least 2014 . MICHELLE . Atrial fibrillation with history RVR, on eliquis for chadsvasc 3 . History CAD, angioplasty in . Borderline low BP limiting HF medications . History perfusion study with moderate fixed defect in RCA or LCx . Cr 0.95 . Prediabetes, on metformin . LV dilation (systolic dimension 45 mm) Plan: Given symptomatic moderate to severe MR with reduced EF, recommend consideration of mitral repair (if surgical, recommend cut and sew ERI and consideration of MAZE, will need more information about effectiveness). Given anticipated low surgical risk, he is not a candidate for Mitraclip. . Cardiac cath . JAYLON to further define pathology if surgeon requests . Referral to cardiac surgery for heart team approach NOTE REFERRING CLIENT SUPPORT PROFESSIONAL is Dr Fortune, and patient should return to this practice. 61 year old man with NYHA Class III dyspnea. He lost 50 lbs this winter on a calorie restricted dietand with exercise. Atrial fib- recent admission for RVR. Reduced EF- history CAD. Chronic. No recent cath. Stress showed scar (described below). Moderate to severe MR- worsening recently. Recently went on treadmill, couldn't get HR up after 10 minutes. No chest pain. He was tired. He does report chest pain at rest intermittently. 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 Notes from recent cardiology consult with Dr Fortune on July 22, 2017 during admission for afib. PROBLEM LIST: Patient Active Problem List Diagnosis ??? Morbid obesity ??? Atrial fibrillation ??? MICHELLE (obstructive sleep apnea) ??? SOB (shortness of breath) ??? Palpitations ??? Mitral regurgitation ??? CAD (coronary artery disease) History reviewed. No pertinent past medical history. See above History reviewed. No pertinent surgical history. PAST SURGICAL HISTORY: No surgery to chest or radiation. 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 FAMILY HISTORY: Father with cardiomyopathy at age 78. MEDICATIONS: Current Outpatient Prescriptions Medication Sig Dispense Refill ??? apixaban (ELIQUIS) 5 mg Tablet Take 5 mg by mouth 2 times daily. ??? furosemide (LASIX) 40 mg Tablet Take 20 mg by mouth 2 times daily. ??? metoprolol succinate (TOPROL-XL) 25 mg Tablet Sustained Release 24 hr Take 25 mg by mouth daily.Indications: take 1.5 tablets daily ??? nitroGLYcerin (NITROSTAT) 0.4 mg Tablet, Sublingual Place 0.4 mg under the tongue every 5 minutes as needed for Chest pain. ??? metFORMIN (GLUCOPHAGE) 500 mg Tablet Take 500 mg by mouth 2 times daily (with meals). ??? albuterol 90 mcg/actuation HFA Aerosol Inhaler [...] updated as appropriate in the medical record: Review of patient's allergies indicates not on file. PHYSICAL EXAMINATION: Vitals: Wt Readings from Last 3 Encounters: 08/09/17 122.5 kg (270 lb) Temp Readings from Last 3 Encounters: No data found for Temp BP Readings from Last 3 Encounters: 08/09/17 122/70 Pulse Readings from Last 3 Encounters: 08/09/17 69 Comprehensive cardiovascular exam Constitutional: The patient is [...] S2 are well heard, and there is 2/6 holo systolic murmur at the apex only; [...] hgb, plt, INR, Cr, lipids if available): No results found for: WBC, HGB, HCT, PLATELET, CHLPL, TRIG, HDL, LDLCHOL, LDLDIRECT, ALT, AST, NA, K, CL, CREATININE, BUN, CO2, TSH, PSA, INR, GLUCFASTING, HA1C, MICROALBUR No results found for this or any previous visit (from the past 72 hour(s)). I spoke with multiple other health care providers about the recommended plan. For referring providers: Thank you for requesting this consultation. For questions, please feel freeto contact me: [phone] (ambulance assistant Dayton Sarmiento, and he will have me paged) or [email or web address]. Cristian Miner 08/09/2017 Referring Providers: Иван Seymour MD (Inactive) None None N/A SHARIF BREWSTER MD 08/09/2017 CC: Иван Seymour MD (Inactive) documented in this encounter Plan of Treatment Upcoming Encounters Date Type Specialty Care Team Description 11/11/2021 Office Visit Nephrology Jonn Zuniga MD [facility] NEPHROLOGY [place], [place] [address] (Wo rk) documented as of this encounter Procedures Procedure Name Priority Date/Time Associated Diagnosis Comme nts CARDIAC CATHETERIZATION Routine 08/16/2017 10:45 Mitral valve Results for this AM EDT insufficiency, procedure are in unspecified etiology the res ults section. EKG 12-LEAD Routine 08/09/2017 2:43 Atrial fibrillation, Resu lts for this PM EDT unspecified type procedure are in Coronary artery the results disease, angina section. presence unspecified, unspecified vessel or lesion type, unspecified whether three affiliated or transplanted hea rt Mitral valve insufficiency, unspecified etio logy Morbid obesity MICHELLE (obstructive sleep apnea) Palpitations SOB (shortness of breath) documented in this encounter Results CARDIAC CATHETERIZATION (08/16/2017 10:45 AM EDT) Anatomical Region Laterality Modality Other Specimen (Source) Anatomical Location Collection Method / Collectio n Time Received Time / Laterality Volume Narrative 08/16/2017 11:09 AM EDT ?[facility] ? Cardiac Cathete rization/Intervention Report ? Patient Name: Miner, Cristian Garcia. ? Procedure Date: 08/16/2017 ? A #: [id number] ? Primary Physician: Mookie, Richard W ? Case #: [id number] ? File Name: [id number] ? Catheterization Order Number: [id number] ? [facility] ? Final Report [place], [place] ? Patient Name: ? Cristian R. Miner ? ID#: ?[id number] ? : ?1955 ? Procedure Date: ? August 16, 2017 ?Case #: ? [id number] ? Room: ? 1 ? Case Physician: ? Richard W Nil es, M.D. ?Start: ?09:45 ?Fellow: ? Clive mares ? Admission: ??08/16/2017 ? Referring Physician: ??Es Clinton M.D. ? Procedures: ?* Coronary Angiography ?* Left Heart Catheterization ?* Right Heart Catheterization ?* Oximetry ? History ?Cristian Miner is a 61 year old m an. He has a family history of coronary ?artery disease. The patient has a history of smoking and is still ?smoking. He has a prior history of coronary artery disease. The patient ?is status post a remote myocard ial infarction. He had a remote coronary ?intervention procedure. The pat ient has a history of dyspnea with NYHA ?functional class III. He has mi tral regurgitation. The patient also has a ?history of an abnormal echocard iogram. Prior to the initiation of this ?procedure, the patient was pravin gnated as ASA Class IV. ? Patient Status at Catheterization: ?The patient presented with: no symptom, no angina (w/i 14 days). [place] ?Cardiovascular Society angina c lass was 0. This patient was on beta ?blockers prior to the procedure . No stress or imaging studies were ?performed prior to this procedu re. The status of the diagnostic procedure ?was Elective. ? Technique: ?A 6 SLFr sheath was inserted in the right radial artery utilizing the ?Seldinger technique. A 7Fr figueroa th was inserted in the right median ?antecubital vein utilizing the Seldinger technique. The left coronary ?artery was injected utilizing a 5Fr JL 3.5 catheter. A 5Fr JR 4 catheter ?was used to inject the right co ronary artery. Right heart catheterization ?was performed utilizing a 7Fr S wan-Diane catheter. Left ventricular ?pressure was performed with a 5 Fr JR 4 catheter. Left ventricular ?pressure was performed with a 5 Fr Angled pigtail catheter. 5,000 units of ?heparin were administered. A to alejandro of 150cc of Omnipaque were opened, ?90cc of Omnipaque were administ ered and 60cc of Omnipaque were wasted. ?Radiation: Fluoro time was 11.1 minutes, dose area product was 198,418 ?mGYcm2 and air kerma was 2,607 mGY. ?The patient received the follow ing medications prior to and during the ?procedure: Aspirin (any) and Un fractionated Heparin (any). ? Hemodynamics: ?Right Heart Pressures ? Hemodynamics: ? Syst D iast ? EDP ?a ?v ? m ?RA ? 9 ?7 ? 5 ?RV 43 ?9 ?PA 43 ?17 ?28 ?PCW ?22 ?35 ?22 ? Hemodynamic Profile: ?Profile 1 ? Profile 2 ?CO ? 6.63 ?5.47 ?CI ? 2.80 ?2.31 ?TSR ?941 ?1,141 ?SVR ?881 ?1,068 ?TPR ?338 ? 410 ?PVR ?72 ?88 ?Techniq ue ?Estimated Sara ?Thermodilution ?Left Heart Pressures ? Resting: ? Syst D iast ? EDP ?a ?v ? m ?Ao 98 ?57 ?78 ? Post Contrast: ? Syst D iast ? EDP ?a ?v ? m ?Ao 98 ?57 ?78 ?LV 96 ?25 ? Oximetry: ?Location ? % Sat ?Location ?%Sat ?Main Pulmonary Artery ??73.0 ?Ascending Aorta ? 96.0 ? Coronary Angiography: ?Dominance: Right ?Left Main ? There was mild diffuse ( <=25% stenosis) disease of the entire vessel ? segment of the left main artery. ?Left Anterior Descending ? There was mild diffuse ( <=25% stenosis) disease of the entire vessel ? segment of the left ante rior descending artery (LAD). ?Left Circumflex ? There was mild diffuse ( <=25% stenosis) disease of the entire vessel ? segment of the left circ umflex artery (LCX). ? There were multiple disc rete 65% stenoses of the proximal segment of ? the second obtuse margin al branch (OM2) of the LCX. ??Distal flow was ? normal. ??The distal ves giovani was large. ?Right Coronary Artery ? There was mild diffuse ( <=25% stenosis) disease of the entire vessel ? segment of the right cor onary artery (RCA). ??The mid segment of the ? RCA had a long segmental 55% stenosis. ??The lesion had a dissection. ? There also was a 50% sin gle discrete stenosis of the distal segment ? of the RCA. ? Indication for Selected Procedures: ?Right Heart catheterization was initiated for Mitral valve disorders. ? Vascular Access: ?Vascular Access Management: ? Manual Compression of th e right median antecubital vein access site ? was performed. ? Mechanical Compression o f the right radial artery access site was ? performed. ? Conclusions: ?* Two vessel coronary artery di sease (LCX and RCA) ?* Mild pulmonary hypertension ?* Elevated pulmonary capillary wedge pressure ?* Decreased cardiac output ? Complications/Events: ?The patient had no complication s during these procedures. ?The attending physician was presen t for the entire procedure. ?Dr. Richard Damico M.D. was pr esent during the moderate sedation ?intraservice time as documented by the sedation nurse. ??Case time = 00:55. ?Dr. Richard Damico M.D. perfor med the coronary angiography, left heart ?catheterization, right heart bob terization and oximetry. ? Richard Damico M.D. ? Electronically Signed by: Richard farris M.D. ? Report Finalized: 08/16/2017 ??11:05 ? Procedure Note Richard Damico II, MD - 08/16/2017Fo rmatting of this note might be different from the original. [facility] Cardiac Catheterization/Intervention Re port Patient Name: Cristian Miner Procedure Date: 08/16/2017 A #: [id number] Primary Physician: Richard Damico Case #: [id number] File Name: [id number] Catheterization Order Number: [id number] [facility] Final Report [place], [place] Patient Name: Cristian Miner ID#: [id number] : 1955 Procedure Date: August 16, 2017 Case #: [id number] Room: 1 Case Physician: Richard Damico M.D. Start: 09:45 Fellow: Clive Gill Admission: Referring Physician: Norberto Piña Procedures: * Coronary Angiography * Left Heart Catheterization * Right Heart Catheterization * Oximetry History Cristian Miner is a 61 year old man. He h as a family history of coronary artery disease. The patient has a histo ry of smoking and is still smoking. He has a prior history of daysi nary artery disease. The patient is status post a remote myocardial infa rction. He had a remote coronary intervention procedure. The patient has a history of dyspnea with NYHA functional class III. He has mitral reg urgitation. The patient also has a history of an abnormal echocardiogram. Prior to the initiation of this procedure, the patient was designated a s ASA Class IV. Patient Status at Catheterization: The patient presented with: no symptom, no angina (w/i 14 days). [place] [employer]ovascular Society angina class was 0. This patient was on beta blockers prior to the procedure. No str ess or imaging studies were performed prior to this procedure. The status of the diagnostic procedure was Elective. Technique: A 6 SLFr sheath was inserted in the rig ht radial artery utilizing the Seldinger technique. A 7Fr sheath was i nserted in the right median antecubital vein utilizing the Seldinge r technique. The left coronary artery was injected utilizing a 5Fr JL 3.5 catheter. A 5Fr JR 4 catheter was used to inject the right coronary a rtery. Right heart catheterization was performed utilizing a 7Fr Ayden-Diane catheter. Left ventricular pressure was performed with a 5Fr JR 4 catheter. Left ventricular pressure was performed with a 5Fr Angle d pigtail catheter. 5,000 units of heparin were administered. A total of 1 50cc of Omnipaque were opened, 90cc of Omnipaque were administered and 60cc of Omnipaque were wasted. Radiation: Fluoro time was 11.1 minutes , dose area product was 198,418 mGYcm2 and air kerma was 2,607 mGY. The patient received the following medi cations prior to and during the procedure: Aspirin (any) and Unfraction ated Heparin (any). Hemodynamics: Right Heart Pressures Hemodynamics: Syst Diast EDP a v m RA 9 7 5 RV 43 9 PA 43 17 28 PCW 22 35 22 Hemodynamic Profile: Profile 1 Profile 2 CO 6.63 5.47 CI 2.80 2.31 TSR 941 1,141 SVR 881 1,068 TPR 338 410 PVR 72 88 Technique Estimated Sara Thermodilution Left Heart Pressures Resting: Syst Diast EDP a v m Ao 98 57 78 Post Contrast: Syst Diast EDP a v m Ao 98 57 78 LV 96 25 Oximetry: Location %Sat Location %Sat Main Pulmonary Artery 73.0 Ascending Ao rta 96.0 Coronary Angiography: Dominance: Right Left Main There was mild diffuse (<=25% stenosis) disease of the entire vessel segment of the left main artery. Left Anterior Descending There was mild diffuse (<=25% stenosis) disease of the entire vessel segment of the left anterior descending artery (LAD). Left Circumflex There was mild diffuse (<=25% stenosis) disease of the entire vessel segment of the left circumflex artery ( LCX). There were multiple discrete 65% stenos es of the proximal segment of the second obtuse marginal branch (OM2) of the LCX. Distal flow was normal. The distal vessel was large. Right Coronary Artery There was mild diffuse (<=25% stenosis) disease of the entire vessel segment of the right coronary artery (R CA). The mid segment of the RCA had a long segmental 55% stenosis. The lesion had a dissection. There also was a 50% single discrete st enosis of the distal segment of the RCA. Indication for Selected Procedures: Right Heart catheterization was initiat ed for Mitral valve disorders. Vascular Access: Vascular Access Management: Manual Compression of the right median antecubital vein access site was performed. Mechanical Compression of the right rad ial artery access site was performed. Conclusions: * Two vessel coronary artery disease (L CX and RCA) * Mild pulmonary hypertension * Elevated pulmonary capillary wedge pr essure * Decreased cardiac output Complications/Events: The patient had no complications during these procedures. The attending physician was present for the entire procedure. Dr. Richard Damico M.D. was present during the moderate sedation intraservice time as documented by the sedation nurse. Case time = 00:55. Dr. Richard Damico M.D. performed t he coronary angiography, left heart catheterization, right heart catheteriz ation and oximetry. Richard Damico M.D. Electronically Signed by: Richard farris M.D. Report Finalized: 08/16/2017 11:05 Sharif Brewster MD CARDIAC CATH ORDERABLES Basic Metabolic Panel (non-fasting) (08/16/2017 8:25 AM EDT) P athologist Signature Glucose Lvl 111 65 - 199 [facility] mg/dL [facility] Comment: Diabetes: >=200 mg/dL plus symp toms BUN 20 10 - 20 mg/dL [facility] Creatinine 0.86 0.80 - 1.50 mg/dL [facility] Sodium 143 135 - 145 mmol/L [facility] Potassium 4.2 3.5 - 5.0 mmol/L [facility] Comment: Please note: ??Patients with WBC >100,00 0 may have falsely elevated Potassium levels. ??For accurate Potassium quantif ication in these patients send serum separator tube (gold top) for subsequent determinations. ??Contact the Clinical Chemistry Laboratory if there are any qu estions. Chloride 106 98 - 107 mmol/L [facility] CO2 25 22 - 31 mmol/L [facility] Anion Gap 12 5 - 15 mmol/L [facility] Calcium 9.2 8.5 - 10.5 mg/dL [facility] Estimated GFR >60 >=60 [facility] Comment: The eGFR was calculated using the CKD-EP I equation. As with all creatinine based estimates of kidney function, eGFR values calculated with the CKD-EPI equation are not accurate in patients wi th acute kidney failure, extremes of body mass or the acutely ill. [email or web address] [email or web address]/[email or web address] GROVEnkf eGFR 110 >=60 mL/min/1.73 m?? [facility] Comment: The eGFR was calculated using the CKD-EP I equation. As with all creatinine based estimates of kidney function, eGFR values calculated with the CKD-EPI equation are not accurate in patients wi th acute kidney failure, extremes of body mass or the acutely ill. [email or web address] [email or web address] GROVEnkf Specimen Anatomical Collection Method Collection Time Receive d Time (Source) Location / / Volume Laterality Blood specimen 08/16/2017 8:25 AM 018 8:42 (specimen) EDT AM EDT Resulting Agency Comment Spec In Lab Sharif Brewster MD CHEMISTRY ORDERABLES Performing Organization Address City/[facility] [place] [address] EKG 12 Lead (08/09/2017 2:43 PM EDT) Component Value Ref Range Test Analysis Performed Pathologis t Method Time At Signature Ventricular rate 56 BPM MUSE SYSTEM Atrial Rate 56 BPM MUSE SYSTEM P-R Interval 180 ms MUSE SYSTEM QRS Duration 122 ms MUSE SYSTEM Q-T Interval 452 ms MUSE SYSTEM QTC Calculated 436 ms MUSE SYSTEM (Bezet) Calculated P [place] 42 degrees MUSE SYSTEM Calculated R [place] 61 degrees MUSE SYSTEM Calculated T [place] 43 degrees MUSE SYSTEM INTERPRETATION Sinus bradycardia MUSE SY STEM Possible Inferior infarct (cited on or before 23-FEB-1995) Abnormal ECG When compared with ECG of 01-MAR-1995 13:04, [place] interval has decreased Questionable change in QRS duration Borderline criteria for Lateral infarct are no longer Presen t Confirmed by MD Ana, Renato ([id number]) on 08/10/2017 9:37:50 AM Specimen Anatomical Collection Method Collection Time Receive d Time (Source) Location / / Volume Laterality 08/09/2017 2:43 PM 8 9:37 EDT AM EDT Sharif Brewster MD ECG ORDERABLES Performing Organization Address City/[facility]/ZIP Code Phon e Number MUSE SYSTEM documented in this encounter Visit Diagnoses Diagnosis Atrial fibrillation, unspecified type Coronary artery disease, angina presence unspecified, unspecified vessel or lesion type, unspecified whether three affiliated or verde splanted heart Mitral valve insufficiency, unspecified etiology Morbid obesity MICHELLE (obstructive sleep apnea) Obstructive sleep apnea (adult) (pediatr ic) Palpitations SOB (shortness of breath) Shortness of breath Mitral valve insufficiency, unspecified etiology documented in this encounter Care Teams Collar Turner Operator Relationship Specialty Start Date End Date Es Clinton PA PCP - General Family Medicine 08/09/17 10/09/19 [address] [place] [address] documented as of this encounter
--- OUTSIDE RECORDS SUMMARY | 2021-10-28 14:14 | XMS_ITS | Encounter Summary ---
:1955 Author Organization [facility] [place] [address] Care Team Providers Name Role Phone Es Clinton Primary Care Provider Encounter Details Date Type Department Care Team Description 08/17/2017 Telephone Cardiology at [facility] Richard Damico II, MD [facility] [place] [address] CARDIOLOGY DEPT. [phone] [place], [place] [address] (Wo rk) Social History Tobacco [...] this encounter Miscellaneous Notes Telephone Encounter - Joanne Boston - 08/17/2017 9:03 AM EDT Pt's called wanting to schedule pt's open heart surgery, right away. I explained to pt, that I would have Dr. Brewster connect with pt, to clarify next step(s). very insistent that we schedule this immediately. She wanted to speak with Dr. Brewster who she insisted shared this with her, given contact number for Dr. Brewster's piece work checker. documented in this encounter Plan of Treatment Upcoming Encounters Date Type Specialty Care Team Description 11/11/2021 Office Visit Nephrology Jonn Zuniga MD [facility] DR NEPHROLOGY DEPT [place], [place] [address] (Wo rk) documented as of this encounter Visit Diagnoses Not on filedocumented in this encounter Care Teams Director Of Government Sales Relationship Specialty Start Date End Date Es Clinton PA PCP - General Family Medicine 08/09/17 10/09/19 [address] [place] [address] documented as of this encounter
--- OUTSIDE RECORDS SUMMARY | 2021-10-28 14:14 | XMS_ITS | Encounter Summary ---
:1955 Author Organization [facility] [place] [address] Care Team Providers Name Role Phone Es Clinton Primary Care Provider Encounter Details Date Type Department Care Team Description 08/09/2017 Telephone Cardiology at [facility] Brian [place], [place] [address] Social History Tobacco Use Types Packs/Day Years Used Date Former Smoker Smokeless Tobacco: Never Used Sex Assigned at Date Recorded Not on file documented as of this encounter Miscellaneous Notes Telephone Encounter - Brian Cordero, RN - 08/09/2017 3:17 PM EDT Asked by Dr. Brewster to complete pre- Cardiac Cath Teaching. Met with patient and his in Clinic room 5. Pre Catheterization instructions reviewed, medication instructions written, provided to patient and his . Questions answered. [facility] Cardiac Catheterization brochure reviewed. Questions answered; provided. Scheduled for his Cardiac Cath procedure Tuesday08/16/2017; 06:30 arrival to 4W. Advised specifically to hold Metformin -last dose prior to procedure; hold Eliquis [address] Brewster. Cardiac Surgery Office called and informed of scheduled date. Direct contact information for Interventional Nurse provided. Encouraged patient and his to call with anyquestions or concerns. Oliverio Cordero, flute polisher Team Nurse [facility] Ambulatory Cardiology documented in this encounter Plan of Treatment Upcoming Encounters Date Type Specialty Care Team Description 11/11/2021 Office Visit Nephrology Jonn Zuniga MD [facility] NEPHROLOGY [place], [place] [address] (Wo rk) documented as of this encounter Visit Diagnoses Not on filedocumented in this encounter Care Teams Maritime Pilot Relationship Specialty Start Date End Date Es Clinton PA PCP - General Family Medicine 08/09/17 10/09/19 [address] [place] [address] documented as of this encounter
--- OUTSIDE RECORDS SUMMARY | 2021-10-28 14:14 | XMS_ITS | Encounter Summary ---
:1955 Author Organization [place] [place] [address] Care Team Providers Name Role Phone Es Clinton Primary Care Provider Encounter Details Date Type Department Care Team Description 08/25/2017 Laboratory Lab at [facility] Non-rheumatic [place] [id number] Social History Tobacco Use Types Packs/Day Years [...] 11/11/2021 Office Visit Nephrology Jonn Zuniga MD [facility] NEPHROLOGY DEPT [place], [place] [address] (Wo rk) documented as of this encounter Procedures Procedure Name Priority Date/Time Associated Diagnosis Comme nts URINALYSIS WITHOUT Routine 08/25/2017 3:17 PM Non-rheumatic mi tral Results for this MICROSCOPIC EDT regurgitation procedure are in the results section. ABORH RECHECK STATUS Routine 08/25/2017 3:03 PM R esults for this EDT procedure are i n the results section. HEMOGRAM Routine 08/25/2017 3:03 PM Non-rheumatic mitral R esults for this EDT regurgitation procedure are in the results section. DIFFERENTIAL, Routine 08/25/2017 3:03 PM Non-rheumatic mitral Results for this AUTOMATED EDT regurgitation procedure are in the results section. TYPE AND SCREEN, SDP Routine 08/25/2017 3:03 PM Non-rheumatic mitral (FUTURE SURGERY, EDT regurgitation [facility] SAME DAY PROGRAM ONLY) ABO/RH TYPING Routine 08/25/2017 3:03 PM Non-rheumatic mitral Results for this EDT regurgitation procedure are in the results section. PROTHROMBIN TIME Routine 08/25/2017 3:03 PM Non-rheumatic mitr al Results for this EDT regurgitation procedure are in the results section. CBC (WITH DIFF) Routine 08/25/2017 3:03 PM Non-rheumatic uligi l EDT regurgitation ANTIBODY SCREEN Routine 08/25/2017 3:03 PM Non-rheumatic luigi l Results for this EDT regurgitation procedure are in the results section. HEPATIC FUNCTION Routine 08/25/2017 3:03 PM Non-rheumatic mitr al Results for this PANEL EDT regurgitation procedure are in the results section. BASIC METABOLIC Routine 08/25/2017 3:03 PM Non-rheumatic luigi l Results for this PANEL (NON-FASTING) EDT regurgitation procedu re are in the results section. documented in this encounter Results (ABNORMAL) Urinalysis without microscopic (08/25/2017 3:17 PM EDT) [facility] Method Time Signature Glucose UA Negative Negative [facility] Protein UA 30 (A) Negative [facility] mg/dL [facility] Bilirubin UA Negative Negative [facility] mg/dL [facility] Comment: Clinical correlation required for positi ve Urine Bilirubin results as false positive may occur with some drugs and d rug related products. If a false positive is suspected a serum total bili watt should be considered if clinically indicated. Urobilinogen UA 2.0 (A) Normal mg/dL [facility] pH UA 5.0 5.0 - 8.0 [facility] Blood UA Small (A) Negative mg/dL [facility] Ketones UA Negative Negative mg/dL [facility] Nitrite UA Negative Negative [facility] Leukocytes UA Negative Negative [facility] Appearance UA Clear Clear [facility] Spec Graham UA 1.029 1.002 - 1.030 [facility] Color UA Yellow Yellow [facility] Specimen Anatomical Collection Method Collection Time Receive d Time (Source) Location / / Volume Laterality Urine specimen 08/25/2017 3:17 PM 018 3:24 (specimen) EDT PM EDT Resulting Agency Comment Spec In Lab Juan Alberto Tiwari MD URINE ORDERABLES Performing Organization Address City/[facility]/ZIP Code Phon e Number [address] ABORH Recheck Status (08/25/2017 3:03 PM EDT) [employer] Method Time Signature ABORH Type Completed [facility] LABORATORY Specimen Anatomical Collection Method Collection Time Receive d Time (Source) Location / / Volume Laterality Blood specimen 08/25/2017 3:03 PM 018 3:16 (specimen) EDT PM EDT Resulting Agency Comment Spec In Lab Juan Alberto Tiwari MD BLOOD BANK ORDERABLES Performing Organization Address City/[facility]/[place] [address] (ABNORMAL) Differential, Automated (08/25/2017 3:03 PM EDT) [email or web address] Method Time Signature Neutrophils % 64.8 % [facility] Neutr Abs (ANC) 5.32 1.70 - [facility] 6.10 [facility] x10(3)/[facility] LABORATORY Lymphocytes % 19.2 % [facility] Lymphocytes Abs 1.6 0.9 - 3.2 [facility] x10(3)/[facility] LABORATORY Monocytes % 12.3 % [facility] Monocyte Abs 1.0 (H) 0.3 - 0.9 [facility] x10(3)/[facility] LABORATORY Eosinophils % 2.1 % [facility] Eosinophils Abs 0.2 0.0 - 0.4 [facility] x10(3)/[facility] LABORATORY Basophils % 0.9 % [facility] Basophils Abs 0.1 0.0 - 0.1 [facility] x10(3)/[facility] LABORATORY Immature Gran % 0.70 % [facility] Comment: Immature granulocytes(IG's)percentage an d absolute count will include metamyelocytes, myelocytes, and promyelo cytes. Blood smears from CBCs yielding IG's will be scanned manually for concor dance. If this scan disagrees with the automated IG or if promyelocytes are not ed, a manual differential will be performed. Nell Gran Abs 0.06 (H) 0.00 - 0.04 x10(3)/[facility] LABORATORY Specimen Anatomical Collection Method Collection Time Receive d Time (Source) Location / / Volume Laterality Blood specimen 08/25/2017 3:03 PM 018 3:24 (specimen) EDT PM EDT Resulting Agency Comment Spec In Lab Juan Alberto Tiwari MD HEMATOLOGY ORDERABLES Performing Organization Address City/State/[place] [address] Hemogram (08/25/2017 3:03 PM EDT) P athologist Signature WBC 8.2 4.0 - 9.5 [facility] x10(3)/[facility] LABORATORY RBC 5.27 4.58 - [facility] 5.54 [facility] x10(6)/[facility] LABORATORY Hemoglobin 15.3 13.7 - [facility] 16.5 gm/dL [facility] Hematocrit 45.8 40.5 - [facility] 48.5 % [facility] MCV 86.9 82.9 - [facility] 93.1 fL [facility] MCH 29.0 27.5 - [place] [place] 32.1 pg [facility] MCHC 33.4 32.0 - [place] 35.7 gm/dL [facility] Platelets 172 145 - 357 [facility] x10(3)/[facility] LABORATORY RDWSD 41.6 36.0 - [place] 45.0 [facility] LABORATORY RDWCV 13.2 11.4 - [facility] 13.8 % [facility] MPV 11.8 7.6 - 12.9 [facility] LABORATORY nRBC % Auto 0.0 % [facility] nRBC Abs Auto 0.000 0.000 - [place] 0.000 [facility] x10(3)/[facility] LABORATORY Specimen Anatomical Collection Method Collection Time Receive d Time (Source) Location / / Volume Laterality Blood specimen 08/25/2017 3:03 PM 018 3:24 (specimen) EDT PM EDT Resulting Agency Comment Spec In Lab Juan Alberto Tiwari MD HEMATOLOGY ORDERABLES Performing Organization Address City/State/[place] [address] Antibody screen (08/25/2017 3:03 PM EDT) Patholo gist Method Time Signature Ab Screen Negative [facility] LABORATORY Expires at 10/09/2017 [place] 0[address] on: [facility] Specimen Anatomical Collection Method Collection Time Receive d Time (Source) Location / / Volume Laterality Blood specimen 08/25/2017 3:03 PM 018 3:16 (specimen) EDT PM EDT Resulting Agency Comment Spec In Lab Juan Alberto Tiwari MD BLOOD BANK ORDERABLES Performing Organization Address City/State/[place] [address] ABO/Rh Typing (08/25/2017 3:03 PM EDT) P athologist Signature ABORh Type O Neg [facility] Specimen Anatomical Collection Method Collection Time Receive d Time (Source) Location / / Volume Laterality Blood specimen 08/25/2017 3:03 PM 018 3:16 (specimen) EDT PM EDT Resulting Agency Comment Spec In Lab Juan Alberto Tiwari MD BLOOD BANK ORDERABLES Performing Organization Address City/[facility]/[place] [address] (ABNORMAL) Prothrombin Time (08/25/2017 3:03 PM EDT) P athologist Signature PT 13.1 (H) 9.4 - 12.5 [facility] sec [facility] INR 1.2 [facility] Comment: An INR <2.0 indicates adequate [...] Location / / Volume Laterality Blood specimen 08/25/2017 3:03 PM 018 3:24 (specimen) EDT PM EDT Resulting Agency Comment Spec In Lab Juan Alberto Tiwari MD HEMATOLOGY ORDERABLES Performing Organization Address City/[facility]/[place] [address] Hepatic Function Panel (08/25/2017 3:03 PM EDT) P athologist Signature Total Protein 7.0 6.1 - 8.0 [place] gm/dL [facility] Albumin 4.2 3.2 - 5.2 [place] gm/dL [facility] AST 14 0 - 39 [place] unit/L [facility] ALT 20 0 - 55 [place] unit/L [facility] Alk Phos 104 40 - 120 [place] unit/L [facility] Total 0.5 0.2 - 1.3 [facility] Bilirubin mg/dL [facility] Bili, Direct 0.1 0.0 - 0.3 [place] mg/dL [facility] Specimen Anatomical Collection Method Collection Time Receive d Time (Source) Location / / Volume Laterality Blood specimen 08/25/2017 3:03 PM 018 3:24 (specimen) EDT PM EDT Resulting Agency Comment Spec In Lab JuanA lberto Tiwari MD CHEMISTRY ORDERABLES Performing Organization Address City/State/[place] [address] (ABNORMAL) Basic Metabolic Panel (non-fasting) (08/25/2017 3:03 PM EDT) P athologist Signature Glucose Lvl 91 65 - 199 [facility] mg/dL [facility] Comment: Diabetes: >=200 mg/dL plus symp toms BUN 25 (H) 10 - 20 mg/dL [facility] Creatinine 1.05 0.80 - 1.50 mg/dL [facility] Sodium 141 135 - 145 mmol/L [facility] Potassium 4.0 3.5 - 5.0 mmol/L [facility] Comment: Please note: ??Patients with WBC >100,00 0 may have falsely elevated Potassium levels. ??For accurate Potassium quantif ication in these patients send serum separator tube (gold top) for subsequent determinations. ??Contact the Clinical Chemistry Laboratory if there are any qu estions. Chloride 102 98 - 107 mmol/L [facility] CO2 25 22 - 31 mmol/L [facility] Anion Gap 14 5 - 15 mmol/L [facility] Calcium 9.3 8.5 - 10.5 mg/dL [facility] Estimated GFR 77 >=60 mL/min/1.73 m?? [facility] Comment: The eGFR was calculated using the CKD-EP I equation. As with all creatinine based estimates of kidney function, eGFR values calculated with the CKD-EPI equation are not accurate in patients wi th acute kidney failure, extremes of body mass or the acutely ill. http://[employer]TurtleCell/DHnkdep http://goDog Fetch/DHMCnkf eGFR 90 >=60 mL/min/1.73 m?? [facility] Comment: The eGFR was calculated using the CKD-EP I equation. As with all creatinine based estimates of kidney function, eGFR values calculated with the CKD-EPI equation are not accurate in patients wi th acute kidney failure, extremes of body mass or the acutely ill. http://[employer]etch/DHnkdep http://[employer]etch/DHMCnkf Specimen Anatomical Collection Method Collection Time Receive d Time (Source) Location / / Volume Laterality Blood specimen 08/25/2017 3:03 PM 018 3:24 (specimen) EDT PM EDT Resulting Agency Comment Spec In Lab Juan Alberto Tiwari MD CHEMISTRY ORDERABLES Performing Organization Address City/State/[place] [address] documented in this encounter Visit Diagnoses Diagnosis Non-rheumatic mitral regurgitation Mitral valve disorders documented in this encounter Care Teams Land Law Examiner Relationship Specialty Start Date End Date Es Clinton PA PCP - General Family Medicine 08/09/17 10/09/19 [address] [place] [address] documented as of this encounter
--- OUTSIDE RECORDS SUMMARY | 2021-10-28 14:14 | XMS_ITS | Encounter Summary ---
:1955 [place] [address] Care Team Providers Name Role Phone Иван Seymour MD Primary Care Provider Encounter Details Date Type Department Care Team Description 07/21/2017 [place] [phone] Social History Tobacco Use Types Packs/Day Years Used Date Never Assessed Sex Assigned at Date Recorded Not on file documented as of this encounter Plan of Treatment Upcoming Encounters Date Type Specialty Care Team Description 11/11/2021 Office Visit Nephrology Jonn Zuniga MD [facility] ER NEPHROLOGY DEPT [place], [place] [address] (Wo rk) documented as of this encounter Procedures Procedure Name Priority Date/Time Associated Diagnosis Comme nts ECG SCAN Routine 07/21/2017 documented in this encounter Results Scan Doc: ECG (07/21/2017) Narrative This result has an attachment that is no t available. Historical Provider MD RHODES MGR SCAN EXT ORDR/RSLT documented in this encounter Visit Diagnoses Not on filedocumented in this encounter Care Teams Wooden Fence Erector Relationship Specialty Start Date End Date Иван Seymour MD PCP - General 01/13/10 08/08/17 documented as of this encounter
--- OUTSIDE RECORDS SUMMARY | 2021-10-28 14:14 | XMS_ITS | Encounter Summary ---
:1955 Author Organization [facility] [place] [address] Care Team Providers Name Role Phone Es Clinton Primary Care Provider Reason for Visit Reason Comments Shortness of Breath Encounter Details Date Type Department Care Team Description 08/25/2017 Office Visit Cardiac Surgery at [facility], Jock Non-r heumatic mitral [facility] MD Naomy regurgitation [facility] [address] [place]OTHORACIC [id number] SURGERY [phone] [place], [place] [address] Social History Tobacco Use Types [...] Sign Reading Time Taken Comments Blood Pressure 125/53 08/25/2017 2:08 PM EDT Pulse 62 08/25/2017 2:08 PM EDT Temperature - - Respiratory Rate - - Oxygen Saturation 95% 08/25/2017 2:08 PM EDT Inhaled Oxygen Concentration - - Weight 126.5 kg (278 lb 12.8 oz) 08/25/2017 2:08 PM EDT Height - - Body Mass Index 41.17 08/16/2017 7:56 AM EDT documented in this encounter Progress Notes Juan Alberto Tiwari MD - 08/25/2017 2:00 PM EDT To: NORBERTO Piña MD Re: Cristian Miner ( 1955) Dear Es and Doris, Thank you for the opportunity to meet today with Mr. Miner and his to discuss issues surroundingthe management of his exertional dyspnea. Although well-known to you please allow me to reiterate the pertinent issues for the purpose of the chart. Mr. Minre is a 61-year-old male with known atherosclerotic coronary artery disease having suffered a MN in the past. This was managed with [...] 43/17. His symptoms at this point are classII exertional dyspnea. His past medical history and review of systems are otherwise importantly positive for treated hypertension, he has obstructive sleep apnea, he has a BMI of 40. He has obstructivesleep apnea, he does not have diabetes, he has had no known previous CVA or TIA, he has no known renal or hepatic insufficiency. 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 He is undergone surgery for ruptured diverticuli. 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 On examination he has a blood pressure 125/53, his heart rates in the 60s at sinus by palpation and on ECG. He is 5 feet 9 inches tall weighs 126 kg. His HEENT examination is unremarkable there are no cervical masses or bruits. His cardiac exam is remarkable for soft 2/6 systolic murmur at the left lower parasternal border which can be heard at the apex. His abdomen is obese but soft. The lower extremities are free of obvious edema there are no gross varicosities. In summary, Mr. Miner has exertional dyspnea which is multifactorial in nature. His body habitus and obstructive sleep apnea are playing a role but is also likely that his cardiac dysfunction is contributing. It is important to know both the anatomy and degree of mitral regurgitation prior to an operative approach. Accordingly we have arranged for transesophageal echo to preformed. Once have an opportunity to review that we can render a final plan. In the interim thanks very much for allowing us to participate in his care and should and if there is anything further that I can provide please do not hesitate contact my office. Best personal regards, Juan Alberto Tiwari MD [phone] In aggregate 50 minutes were spent evaluating this patient, reviewing all images, counseling/examining the patient and communicating with other involved physicians. documented in this encounter Plan of Treatment Upcoming Encounters Date Type Specialty Care Team Description 11/11/2021 Office Visit Nephrology Jonn Zuniga MD [facility] NEPHROLOGY DEPT [place], [place] [address] (Wo rk) documented as of this encounter Results (ABNORMAL) Urinalysis without microscopic (08/25/2017 3:17 PM EDT) [facility] Method Time Signature Glucose UA Negative Negative [facility] mg/dL [facility] Protein UA 30 (A) Negative [facility] mg/dL [facility] Bilirubin UA Negative Negative [facility] mg/dL [facility] Comment: Clinical correlation required for positi ve Urine Bilirubin results as false positive may occur with some drugs and d rug related products. If a false positive is suspected a serum total bili watt should be considered if clinically indicated. Urobilinogen UA 2.0 (A) Normal mg/dL [facility] pH UA 5.0 5.0 - 8.0 [facility] Blood UA Small (A) Negative mg/dL [facility] Ketones UA Negative Negative mg/dL [facility] Nitrite UA Negative Negative [facility] Leukocytes UA Negative Negative [facility] Appearance UA Clear Clear [facility] Spec [place] UA 1.029 1.002 - 1.030 [facility] Color UA Yellow Yellow [facility] Specimen Anatomical Collection Method Collection Time Receive d Time (Source) Location / / Volume Laterality Urine specimen 08/25/2017 3:17 PM 018 3:24 (specimen) EDT PM EDT Resulting Agency Comment Spec In Lab Juan Alberto Tiwari MD URINE ORDERABLES Performing Organization Address City/[facility] [place] [address] (ABNORMAL) Prothrombin Time (08/25/2017 3:03 PM EDT) P athologist Signature PT 13.1 (H) 9.4 - 12.5 [facility] LABORATORY INR 1.2 [facility] [...] Tiwari MD HEMATOLOGY ORDERABLES Performing Organization Address City/[facility]/ZIP [place] [address] Hepatic Function Panel (08/25/2017 3:03 PM EDT) athologist Signature Total Protein 7.0 6.1 - 8.0 [facility] gm/dL [facility] Albumin 4.2 3.2 - 5.2 [facility]dL [facility] AST 14 0 - 39 [facility] unit/L [facility] ALT 20 0 - 55 [facility] unit/L [facility] Alk Phos 104 40 - 120 [facility] unit/L [facility] Total 0.5 0.2 - 1.3 [facility] Bilirubin mg/dL [facility] Bili, Direct 0.1 0.0 - 0.3 [facility] mg/dL [facility] Specimen Anatomical Collection Method Collection Time Receive d Time (Source) Location / / Volume Laterality Blood specimen 08/25/2017 3:03 PM 018 3:24 (specimen) EDT PM EDT Resulting Agency Comment Spec In Lab Juan Alberto Tiwari MD CHEMISTRY ORDERABLES Performing Organization Address City/State/[place] [address] (ABNORMAL) Basic Metabolic Panel (non-fasting) (08/25/2017 3:03 PM EDT) athologist Signature Glucose Lvl 91 65 - 199 [facility] mg[facility]dL [facility] Comment: Diabetes: >=200 mg/dL plus symp toms BUN 25 (H) 10 - 20 mg/dL [facility] Creatinine 1.05 0.80 - 1.50 mg/dL [facility] Sodium 141 135 - 145 mmol/L [facility] Potassium 4.0 3.5 - 5.0 mmol/L [facility] Comment: Please note: ??Patients [...] Anion Gap 14 5 - 15 mmol/L [facility] Calcium 9.3 8.5 - 10.5 mg/dL [facility] Estimated GFR 77 >=60 mL/min/1.73 m?? [facility] Comment: The eGFR was calculated using the CKD-EP I equation. As with all creatinine based estimates of kidney function, eGFR values calculated with the CKD-EPI equation are not accurate in patients wi th acute kidney failure, extremes of body mass or the acutely ill. [email or web address] http://[employer]/GenePeeksMCnkf eGFR 90 >=60 mL/min/1.73 m?? [facility] Comment: The eGFR was calculated using the CKD-EP I equation. As with all creatinine based estimates of kidney function, eGFR values calculated with the CKD-EPI equation are not accurate in patients wi th acute kidney failure, extremes of body mass or the acutely ill. [email or web address] [email or web address]/DHMCnkf Specimen Anatomical Collection Method Collection Time Receive d Time (Source) Location / / Volume Laterality Blood specimen 08/25/2017 3:03 PM 018 3:24 (specimen) EDT PM EDT Resulting Agency Comment Spec In Lab Juan Alberto Tiwari MD CHEMISTRY ORDERABLES Performing Organization Address City/State/[place] [address] documented in this encounter Visit Diagnoses Diagnosis Non-rheumatic mitral regurgitation Mitral valve disorders documented in this encounter Care Teams Bite Block Maker Relationship Specialty Start Date End Date Es Clinton PA PCP - General Family Medicine 08/09/17 10/09/19 [address] [place] [address] documented as of this encounter
--- OUTSIDE RECORDS SUMMARY | 2021-10-28 14:14 | XMS_ITS | Encounter Summary ---
:1955 Author Organization [facility] [place] [address] Care Team Providers Name Role Phone Es Clinton Primary Care Provider Encounter Details Date Type Department Care Team Description 07/22/2017 Orders Only Cardiology at [facility] Clive Gill, Coronary artery [facility] MD disease, angina Drive [facility] presence unspecified, [place], [place] [id number] CARDIOLOGY DEPT lesion type, [place], [place] [address] unspecified whether [phone] ven[place]ie or trans planted (Work) heart Social History Tobacco Use Types Packs/Day Years Used Date Never Assessed Sex Assigned at Date Recorded Not on file documented as of this encounter Plan of Treatment Upcoming Encounters Date Type Specialty Care Team Description 11/11/2021 Office Visit Nephrology Jonn Zuniga MD [facility] NEPHROLOGY DEPT [place], [place] [address] (Wo rk) documented as of this encounter Visit Diagnoses Diagnosis Coronary artery disease, angina presence unspecified, unspecified vessel or lesion type, unspecified whether venetie or verde splanted heart documented in this encounter Care Teams Java Developer Consultant Relationship Specialty Start Date End Date Es Clinton PA PCP - General Family Medicine 08/09/17 10/09/19 [address] [place] [address] documented as of this encounter
--- OUTSIDE RECORDS SUMMARY | 2021-10-28 14:14 | XMS_ITS | Encounter Summary ---
:1955 Author Organization [facility] [place] [address] Care Team Providers Name Role Phone Es Clinton Primary Care Provider Encounter Details Date Type Department Care Team Description 08/25/2017 Clinical [place] [address] Social History Tobacco Use Types Packs/Day [...] documented as of this encounter Progress Notes Mone Anguiano RN - 08/25/2017 2:40 PM EDT PAT questionnaire reviewed with patient while in Pre Admission testing. Anesthesia in past with no complications. Recently had cardiac catheterization so feels comfortable about pre-op preparation. Pre-operative instruction booklet reviewed. Given Hibiclens with written and verbal instructions. Patient verbalizes a good understanding of all information reviewed. PLAN: Testing: Blood work, T&S and urine. Special medication instructions: Margarita au MD. Procedure date: Not booked at this time with Dr. Tiwari. documented in this encounter Plan of Treatment Upcoming Encounters Date Type Specialty Care Team Description 11/11/2021 Office Visit Nephrology Jonn Zuniga MD [facility] NEPHROLOGY DEPT [place], [place] [address] (Wo rk) documented as of this encounter Visit Diagnoses Not on filedocumented in this encounter Care Teams Allergist Immunologist Relationship Specialty Start Date End Date Es Clinton PA PCP - General Family Medicine 08/09/17 10/09/19 [address] [place] [address] documented as of this encounter
[2021-10-28 17:38] LABS: BUN 17 mg/dL (7-18); CREATININE 1.6 mg/dL (0.70-1.30); Calcium 8.7 mg/dL (8.5-10.1); Chloride 101 mmol/L (98-107); Estimated GFR 48.11 (mL/min/1.73m2); Ferritin 70 ng/mL (26-388); Glucose 146 mg/dL (74-106); Potassium 3.6 mmol/L (3.5-5.1); Sodium 140 mmol/L (136-145); TSH (W/Ref FT4) 4.75 uIU/mL (0.36-3.74)
[2021-10-28 17:57] LABS: FREE T4 0.94 ng/dL (0.76-1.46)
== END 2021-10-28 14:08 | disposition home or self-care (01) ==
LOC: NCHCN 14:07
PROVIDERS: PCP Physician Assistant Medical; Visit Provider Physician Assistant Medical
DX: G47.33 Obstructive sleep apnea (adult) (pediatric) (principal); E66.9 Obesity, unspecified
CPT/HCPCS: 80048; 82728; 84439; 84443

== ENCOUNTER 2022-04-29 12:37 | Outpatient (REF) | payer MEDICAID, SELFPAY ==
[2022-04-29 16:51] LABS: Abs Immature Grans 0.21 10^3/uL (0.0-0.06); Absolute Basophil Count 0.04 10^3/uL (0.0-0.2); Absolute Eosinophil Count 0.02 10^3/uL (0.0-0.7); Absolute Lymphocyte Count 0.56 10^3/uL (1.2-3.4); Absolute Neutrophil Count 4.86 10^3/uL (1.2-6.7); Basophils % 0.6; Eosinophils % 0.3; HCT 48.8 % (40.0-50.0); HGB 16.2 g/dL (13.5-17.5); Immature Grans % 3.2; Lymphocytes % 8.5; MCH 30.1 pg (27.0-33.0); MCHC 33.2 % (32.0-36.0); MCV 91 fL (80-95); MPV 11.4 fL (8.0-11.0); Monocytes % 13.7; Neutrophils % 73.7; Platelet Count 179 10^3/uL (130-400); RBC 5.38 10^6/uL (4.36-5.78); RDW 14.5 % (11.8-14.1); RDW-SD 48.6 fL; WBC 6.59 10^3/uL (4.4-10.8)
[2022-04-29 17:40] LABS: ALT 37 U/L (16-63); AST 34 U/L (15-37); Albumin 3.3 g/dL (3.4-5.0); Alkaline Phosphatase 121 U/L (46-116); BUN 18 mg/dL (7-18); Bilirubin, Total 0.6 mg/dL (0.2-1.0); CREATININE 1.4 mg/dL (0.70-1.30); Chloride 99 mmol/L (98-107); Estimated GFR 56.13 (mL/min/1.73m2); Glucose 128 mg/dL (74-106); Potassium 3.7 mmol/L (3.5-5.1); Sodium 136 mmol/L (136-145); TSH (W/Ref FT4) 2.48 uIU/mL (0.36-3.74); Total Protein 7.6 g/dL (6.4-8.2)
== END 2022-04-29 12:38 | disposition home or self-care (01) ==
LOC: NCHCN 12:37
PROVIDERS: PCP Physician Assistant Medical; Visit Provider Physician Assistant Medical
DX: R94.6 Abnormal results of thyroid function studies (principal); R06.02 Shortness of breath; R19.7 Diarrhea, unspecified
CPT/HCPCS: 80053; 84443; 85025

== ENCOUNTER 2022-04-29 13:14 | Outpatient (CLI) | payer MEDICAID, SELFPAY ==
--- OUTSIDE RECORDS SUMMARY | 2022-04-29 13:17 | XMS_ITS | Continuity of Care Document ---
Author Name Unknown Organization [facility] Ambulatory Clinics Address [address] [place] [address] Care Team Providers Care Mold Dumper Name Role Phone Es Clinton Primary Care Physician Encounter [facility] NBR [id number] Date(s): 01/19/22 - 01/19/22 [facility] Ambulatory Clinics [address] [place] [address] us Discharge Disposition: Home or Self Care Attending Physician: Tamar Biswas BROKERAGE CLERK, Allergies, Adverse Reactions, Alerts No Known Allergies Assessment and Plan Future Appointments Functional Status 01/19/22 Other exposure to Infectious Disease Non e Medications amiodarone 100 mg oral tablet 1 Unknown, 0 Refill(s) Start Date: 01/20/22 Status: Ordered atorvastatin 40 mg oral tablet 1 Unknown, 0 Refill(s) Start Date: 01/20/22 Status: Ordered buPROPion 150 mg/24 hours (XL) oral tablet, extended release 1 Unknown, 0 Refill(s) Start Date: 01/20/22 Status: Ordered Eliquis 5 mg oral tablet 56 unknown unit, 0 Refill(s) Start Date: 01/20/22 Status: Ordered Flomax 0.4 mg oral capsule 1 Unknown, 0 Refill(s) Start Date: 01/20/22 Status: Ordered Jardiance 10 mg oral tablet 28 unknown unit, 0 Refill(s) Start Date: 01/20/22 Status: Ordered metoprolol tartrate 50 mg oral tablet 0 Refill(s) Start Date: 01/20/22 Status: Ordered omeprazole 20 mg oral delayed release capsule 28 unknown unit, 0 Refill(s) Start Date: 01/20/22 Status: Ordered Potassium Chloride (Byz-Bejs-Obk M20) 20 mEq oral tablet, extended release 0 Refill(s) Start Date: 01/19/22 Status: Ordered ProAir HFA 90 mcg/inh inhalation aerosol 8 unknown unit, 0 Refill(s) Start Date: 01/20/22 Status: Ordered rosuvastatin 20 mg oral tablet 28 unknown unit, 0 Refill(s) Start Date: 01/20/22 Status: Ordered spironolactone 25 mg oral tablet 84 unknown unit, 0 Refill(s) Start Date: 01/20/22 Status: Ordered torsemide 20 mg oral tablet 20 mg = 1 tab, Oral, Daily, # 30 tab, 0 Refill(s) Start Date: 01/19/22 Status: Ordered valsartan 40 mg oral tablet 28 unknown unit, 0 Refill(s) Start Date: 01/20/22 Status: Ordered Wellbutrin SR 150 mg/12 hours oral tablet, extended release 1 Unknown, 0 Refill(s) Start Date: 01/20/22 Status: Ordered Problem List Condition Confirmation Course Effective Dates Status H ealth Status Informant Arthritis of knee, right Confirmed Active Congestive heart failure (CHF) Confirmed Active Diverticulitis Confirmed Active History of skin cancer Confirmed Active Hyperlipidemia Confirmed Active Hypertension Confirmed Active Impaired fasting glucose Confirmed Active Heart attack Confirmed Active Procedures Procedure Date Related Diagnosis Body Site Status Appendectomy Completed Colostomy formed 1 Comple rocio Repair of anterior cruciate ligament of knee joint Completed 1Burst Diverticulum Vital Signs Most recent to oldest [Reference Range]: 1 Blood Pressure [90-140/60-90 mmHg] 118/5 8mmHg (01/19/22 12:46 PM) Weight 152.50 kg (01/19/22 12:46 PM) Weight Measured (lbs) 336.205 lb (01/19/22 12:46 PM) Height 172.72 cm (01/19/22 12:46 PM) Height/Length Measured (inches) 68 inch (01/19/22 12:46 PM) BSA Measured 2.7 m2 (01/19/22 12:46 PM) Body Mass Index 51.12 kg/m2 (01/19/22 12:46 PM) Social History Social History Type Response Tobacco Never tobacco user T obacco Use:. Sex Male Patient Care team information Personnel Name: Es Clinton Address: Address: [address] [place] [address] [address] [place], [place] [id number] [place] [address]
--- OUTSIDE RECORDS SUMMARY | 2022-04-29 13:17 | XMS_ITS | Continuity of Care Document ---
Author Name Unknown Organization [facility] Address [address] [place] [address] Care Team Providers Care Salesforce Trainer Name Role Phone Guillermina Govea Primary Care Physician [facility] Date(s[facility] 04/15/22 - 04/15/22 [facility] [address] [place] [address] Encounter Diagnosis Obstructive sleep apnea(Discharge Diagnosis) - 04/15/22 Restless legs syndrome(Discharge Diagnosis) - 04/15/22 Discharge Disposition: Home or Self Care Attending Physician: Guillermina Govea GENERAL NEUROLOGIST Allergies, Adverse Reactions, Alerts No Known Allergies Assessment and Plan Future Appointments Future Scheduled Tests Laboratory* Ferritin 10/23/21 * TSH w/ Rflx to Free T4 10/23/21 Functional Status 04/15/22 Other exposure to Infectious Disease Non e Immunizations Given and Recorded Vaccine Date Status Refusal Reason SARS-CoV-2 (COVID-19) mRNA-1273 vaccine 06/16/20 R ecorded SARS-CoV-2 (COVID-19) mRNA-1273 vaccine 06/16/20 R ecorded SARS-CoV-2 (COVID-19) mRNA-1273 vaccine 05/19/20 R ecorded SARS-CoV-2 (COVID-19) mRNA-1273 vaccine 05/19/20 R ecorded Medications albuterol 0 Refill(s) Start Date: 09/04/21 Status: Ordered aspirin 81 mg oral capsule 81 mg = 1 cap, Oral, Daily, do not exceed 48 capsules in 24 hours, # 30 cap, 0 Refill(s) Start Date: 10/22/21 Status: Ordered buPROPion 150 mg daily do not crush or chew, 0 Refill(s) Start Date: 09/04/21 Status: Ordered Colace 100 mg oral capsule 100 mg = 1 cap, Oral, BID, PRN as needed for constipation, # 20 cap, 0 Refill(s) Start Date: 09/04/21 Status: Ordered dibucaine 1% topical ointment 1 oniel, Topical, QID, PRN as needed for itching, # 30 g, 0 Refill(s) Start Date: 10/22/21 Status: Ordered Eliquis 5 mg oral tablet 5 mg = 1 tab, Oral, BID, # 60 tab, 0 Refill(s) Start Date: 09/04/21 Status: Ordered Jardiance 10 mg oral tablet 10 mg = 1 tab, Oral, every morning, # 30 tab, 0 Refill(s) Start Date: 09/04/21 Status: Ordered K-Tab 20 mEq oral tablet, extended release 0 Refill(s) Start Date: 09/04/21 Status: Ordered metOLazone 2.5 mg oral tablet 0 Refill(s) Start Date: 09/04/21 Status: Ordered metoprolol tartrate 50 mg oral tablet 50 mg = 1 tab, Oral, BID, # 60 tab, 0 Refill(s) Start Date: 09/04/21 Status: Ordered MiraLax oral powder for reconstitution 17 g, Oral, Daily, # 238 g, 0 Refill(s) Start Date: 10/22/21 Status: Ordered Nitrostat 0.4 mg sublingual tablet 0.4 mg = 1 tab, SL, every 5 min, PRN as needed for chest pain, # 100 tab, 0 Refill(s) Start Date: 10/22/21 Status: Ordered omeprazole 20 mg oral delayed release capsule 20 mg = 1 cap, Oral, Daily, # 30 cap, 0 Refill(s) Start Date: 09/04/21 Status: Ordered Oxygen Therapy Supply, See instructions, # 1 EA, 0 Refill(s) Start Date: 10/22/21 Status: Ordered Pacerone 100 mg oral tablet 0 Refill(s) Start Date: 09/04/21 Status: Ordered rosuvastatin 20 mg oral capsule 20 mg = 1 cap, Oral, Daily, # 30 cap, 0 Refill(s) Start Date: 09/04/21 Status: Ordered spironolactone 25 mg oral tablet 25 mg = 1 tab, Oral, BID, # 60 tab, 0 Refill(s) Start Date: 09/04/21 Status: Ordered tamsulosin 0.4 mg oral capsule 0.4 mg = 1 cap, Oral, Daily, # 30 cap, 0 Refill(s) Start Date: 09/04/21 Status: Ordered torsemide 20 mg oral tablet 20 mg = 1 tab, Oral, Daily, # 30 tab, 0 Refill(s) Start Date: 09/04/21 Status: Ordered valsartan 40 mg oral tablet 0 Refill(s) Start Date: 09/04/21 Status: Ordered Problem List Condition Confirmation Course Effective Dates Status H ealth Status Informant Arthritis of right knee Confirmed Active BPH (benign prostatic hyperplasia) Confirmed Active Congestive heart failure Confirmed Active Mild CAD Confirmed Active Cough Confirmed Active COVID-19 virus infection Confirmed Active Decreased hearing of both ears Confirmed Active Depression Confirmed Active Diverticulitis Confirmed Active Diverticulitis of colon Confirmed Active Shortness of breath Confirmed Active Hx of adenomatous colonic polyps Confirmed Active Aortic valve prosthesis present Confirmed Active Hyperlipidemia Confirmed Active Hypertension Confirmed Active Skin cancer Confirmed Active Mitral regurgitation Confirmed Active Near syncope Confirmed Active Nocturia Confirmed Active Pulmonary nodule Confirmed Active Obesity Confirmed Active Knee pain, bilateral Confirmed Active Paroxysmal atrial fibrillation Confirmed Active Prediabetes Confirmed Active History of tobacco use Confirmed Active Vital Signs Most recent to oldest [Reference Range]: 1 Peripheral Pulse Rate [60-100 bpm] 63 bp m (04/15/22 9:14 AM) Blood Pressure [90-140/60-90 mmHg] 123/5 3mmHg (04/15/22 9:14 AM) Weight 159.12 kg (04/15/22 9:14 AM) Weight Measured (lbs) 350.799 lb (04/15/22 9:14 AM) Height 172 cm (04/15/22 9:14 AM) Height/Length Measured (inches) 67.72 in ch (04/15/22 9:14 AM) BSA Measured 2.76 m2 (04/15/22 9:14 AM) Body Mass Index 53.79 kg/m2 (04/15/22 9:14 AM) Social History Social History Type Response Tobacco Former tobacco user Tobacco Use:. Sex Male Note * Marge Moore R: PERFORM Event Display: Progress Note - Specialties/Departments Authored Date: [id number] Progress note * [place]: PERFORM Event Display: Progress Note - Physician Authored Date: [id number] Physician Outpatient Note * Guillermina Govea GENERAL NEUROLOGIST: PERFORM, MODIFY Event Display: Office Clinic Note Physician Authored Date: [id number] CRISTIAN GREY :1955 Age:66 years Sex:Male Visit Date:04/15/2022 Primary Care Physician: Guillermina Govea NP Chief Complaint BiPAP compliance History of Present Illness 66 year old male here for BIPAP compliance. ?? TODAY: Pt states he receiving his new BiPAP machine in January. He feels it's working really well for him. He is tolerating the air pressure settings well. He does not like his current headgear, it is cutting into the back of his head.?? He feels his maskfits well. He reports he notices an occasional air leak. Review of Systems A 10-point REVIEW OF SYSTEM was obtained and reviewed, includes CONSTITUTIONAL, EYES, NOSE, THROAT,RESPIRATORY, HEART, GASTROINTESTINAL, UROLOGIC, MUSCULOSKELETAL, PSYCHIATRY, SKIN systems. Pertinent symptoms are discussed in history, otherwise negative. Physical Exam Vitals & Measurements HR:??63??(Peripheral)?? BP:??123/53?? SpO2:??96%?? HT:??172??cm?? WT:??159.12??kg?? BMI:??53.79?? BSA:??2.76?? General well appearing??statedage, no acute distress,??obesebuild HEENT: atraumatic skull, anicteric RESPIRATORY: quiet respiration, able to speak in full sentences without dyspnea, no accessory muscle use, SKIN: no facial skin rash, no facial skin lesions PSYCHIATRIC: well groomed, fluent speech, good insight, linear thought process, good eye contact,balanced NEUROLOGIC: alert, oriented, symmetric facial expression Assessment/Plan 1.??Obstructive sleep apnea??G47.33 Cristian Grey is a pleasant 66 year old male here for new BIPAP user compliance. Download data reviewedand discussed with the patient. He has perfect compliance and excellent reduction in AHI, tx AHI 0.6/hr. He has a significant air leak on his data, states he notices an occasional air leak but does leave his machine running when he gets up at night. Advise him to turn off his machine when not in use. Denies any pressure intolerance or aerophagia with current settings. Pt reports some discomfort with his current mask and headgear, states it feels too tight/narrow on the back of his head and he has to put cotton on the back of his head in-between his scalp and the straps for comfort. Troubleshooting mask fit in office, his mask fits well however his headgear may be too small for him. Advise pt to contact his DME to request a replacement and ask for a new mask next month for try other options. If he has difficulty with this, I am happy to send in a mask refit order to??them. Cont current BiPAP pressure??auto BiPAP IMAX 25 SUZETTE 13 PS 4cm H20. Pt is using and benefitting from CPAP, sleeping well through the night and waking up refreshed. 2.??Restless legs syndrome??G25.81 Pt states his RLS symptoms have improved with supplements and BiPAP tx. He is taking Vit D, C, and magnesium daily. I provided greater than??30??minutes in the care of this patient, more than half the time was spentin [id number] counseling. ?with comorbidities of ??HTN, hx CHF, hx IN (first IN 40 yrs), s/p CABG 2020, Afib, hyperlipidemia, depression ? Clinical Data Reviewed: [place] Sleepiness Scale: 0/24 ?? Machine Download Data:??ResMED??Aircurve 10 VAuto?? PAP Settings: ??Auto BIPAP?IMAX 23??SUZETTE 15 PS??5??CmH2O Date Range: ?03/10/22??- 04/08/22 Days with Usage >=4 hours: ??100% Avg Usage per Day Used: ??10hr 15min Mean/Median Pressure: ?18.1/13.1 90th-tile/95th-tile Pressure: ?19.1/14.1 Leak:?3.8/32.0 Avg Treatment ??AHI: ??0.6/hr ?? Sleep Clinical Timeline:?? 10/11/2014.??[facility]ST ([facility]). BMI 48.1 AHI 16.5/hr.?? cpap??therapy initiated autocpap 5-20 cmH20 ?? 09/06/2019. ??CPAP and BiPAP titration PSG.?? Currently using auto CPAP 5 to 20 cm H2O.?? Machinemalfunction??new machine. ??Weight 156.49 kg. ??BMI 51.69??kg/m?? 1.??CPAP and BIPAP titration for Moderate Obstructive Sleep Apnea associated with significant nocturnal hypoxemia. 2.??CPAP was tried and failed. Residual respiratory events observed up to CPAP 14cm and associated with oxygen saturation dipping into low 80s???%. ??Interface problems did not contribute to CPAPs inability to control the patient's sleep apnea. 3.??Optimal pressure at BIPAP 22/17 cm H2O which resolved significant apneas, hypopneas, snoring and desaturations including during Supine REM/NREM sleep and Right Lateral REM/NREM sleep. Adequate oxygenation was maintained on optimal pressures from BIPAP 18/13cm to 22/[id number]. ??BIPAP 18/65huV9G worked well for Left Lateral REM/NREM sleep.?? 4.??Moderate Periodic Limb Movement Disorder without significant arousals. PLM Index 21.7/hr. PLM arousal index 0.5/hr. 5.??Resmed Airfit F20, Full Face Mask in Size Medium, showed acceptable leak profile. Patient came to sleep lab with FlexiFit full face mask which he did not like, and was refitted to the above mask,noted to work very well for patient ? 10/23/2021: f/u CPAP and BIPAP titration study, new order placed for auto BIPAP 25/13/5 cm H20 to [facility]. ??ResMed AirFit F 20, fullface mask size medium ?? 02/18/2022. f/u lab results. Pending auto BiPAP from [facility]. Recommend Mag Gluconate 200-400mg QD and vit D 1000IU QD for RLS. ? 04/15/2022: Cont auto BiPAP IMAX 25 SUZETTE 13 PS 5cm H20. Receiving supplies from [facility], needs replacement headgear in??larger size. RLS sx well controlled with Mg, Vit D, and Vit C. ? Current Mask: Airfit Medium [facility] DME: [facility] ?? Today's Assessment and Plan: See above. ?? Follow up: 6 months or sooner if needed. ? Problem List/Past Medical History Ongoing Aortic valve prosthesis present Arthritis of right knee BPH (benign prostatic hyperplasia) Congestive heart failure Cough COVID-19 virus infection Decreased hearing of both ears Depression Diverticulitis Diverticulitis of colon History of tobacco use Hx of adenomatous colonic polyps Hyperlipidemia Hypertension Knee pain, bilateral Mild CAD Mitral regurgitation Morbid obesity Near syncope Nocturia Obesity Paroxysmal atrial fibrillation Prediabetes Pulmonary nodule Shortness of breath Skin cancer Historical MICHELLE on CPAP Medications albuterol aspirin 81 mg oral capsule, 81 mg= 1 cap, Oral, Daily buPROPion Colace 100 mg oral capsule, 100 mg= 1 cap, Oral, BID, PRN dibucaine 1% topical ointment, 1 oniel, Topical, QID, PRN Eliquis 5 mg oral tablet, 5 mg= 1 tab, Oral, BID Jardiance 10 mg oral tablet, 10 mg= 1 tab, Oral, every morning K-Tab 20 mEq oral tablet, extended release metOLazone 2.5 mg oral tablet metoprolol tartrate 50 mg oral tablet, 50 mg= 1 tab, Oral, BID MiraLax oral powder for reconstitution, 17 g, Oral, Daily Nitrostat 0.4 mg sublingual tablet, 0.4 mg= 1 tab, SL, every 5 min, PRN omeprazole 20 mg oral delayed release capsule, 20 mg= 1 cap, Oral, Daily Oxygen Therapy, See instructions Pacerone 100 mg oral tablet rosuvastatin 20 mg oral capsule, 20 mg= 1 cap, Oral, Daily spironolactone 25 mg oral tablet, 25 mg= 1 tab, Oral, BID tamsulosin 0.4 mg oral capsule, 0.4 mg= 1 cap, Oral, Daily torsemide 20 mg oral tablet, 20 mg= 1 tab, Oral, Daily valsartan 40 mg oral tablet Allergies No Known Allergies Social History Alcohol Current, Liquor- Comments: 1-2 x a month Electronic Cigarette/Vaping Electronic Cigarette Use: Never. Home/Environment Lives with Spouse. Nutrition/Health Caffeine intake amount: no caffiene. Substance Use Never Tobacco Former tobacco user Tobacco Use:. Immunizations Vaccine Date Status SARS-CoV-2 (COVID-19) mRNA-1273 vaccine 06/16/2020 Recorded SARS-CoV-2 (COVID-19) mRNA-1273 vaccine 06/16/2020 Recorded SARS-CoV-2 (COVID-19) mRNA-1273 vaccine 05/19/2020 Recorded SARS-CoV-2 (COVID-19) mRNA-1273 vaccine 05/19/2020 Recorded Electronically Signed on 04/15/22 09:50 AM Guillermina Govea NP Electronically Signed on 04/15/22 09:46 AM Amparo Copeland Electronically Signed on 04/15/22 09:51 AM Guillermina Govea NP Reviewed by: Amparo Copeland Patient Care team information Care Team Personnel Name: Guillermina Govea NP Position: Physician Member Role: Primary Care Physician Address: Address: [address] [place] [id number] [place] Care Team Related Persons Name: MAHOGANY GREY
--- OUTSIDE RECORDS SUMMARY | 2022-04-29 13:17 | XMS_ITS | Continuity of Care Document ---
Author Name Unknown Organization [facility] Address [address] [place] [address] Care Team Providers Care Manager Respiratory Name Role Phone Es Clinton Primary Care Physician Encounter [facility] NBR [id number] Date(s): 01/26/22 - 01/26/22 [facility] [address] [place], [place] [address] Encounter Diagnosis Osteoarthritis of knees, bilateral(Discharge Diagnosis) - 01/25/22 Discharge Disposition: Home or Self Care Attending Physician: Tamar Biswas QUALITY PROJECT MANAGER, Allergies, Adverse Reactions, Alerts No Known Allergies Assessment and Plan Future Appointments Functional Status 01/26/22 Other exposure to Infectious Disease Non e [...] Start Date: 01/20/22 Status: Ordered Potassium Chloride (Gld-Rgwm-Ueb M20) 20 mEq oral tablet, extended release [...] Range]: 1 Peripheral Pulse Rate [60-100 bpm] 60 bp m (01/26/22 9:28 AM) Blood Pressure [90-140/60-90 mmHg] 104/6 4mmHg (01/26/22 9:28 AM) Weight 152.5 kg (01/26/22 9:28 AM) Weight Measured (lbs) 336.205 lb (01/26/22 9:28 AM) Height 172.72 cm (01/26/22 9:28 AM) Height/Length Measured (inches) 68 inch (01/26/22 9:28 AM) BSA Measured 2.7 m2 (01/26/22 9:28 AM) Body Mass Index 51.12 kg/m2 (01/26/22 9:28 AM) Social History Social History Type Response Tobacco Never tobacco user T obacco Use:. Sex Male Hospital Discharge Instructions Follow Up Care 12/24/2021 12:07:20 With:Tamar Zulay STANLEY, Address: [address] [place], [place] [id number]- When:Within 1 Week(s) Comments:OV #3 BILAT KNEES Physician Outpatient Note * Tamar Zulay STANLEY,: PERFORM Event Display: Office Clinic Note Physician Authored Date: [id number] CRISTIAN GREY :1955 Age:66 years Sex:Male Visit Date:01/26/2022 Primary Care Physician: Es Clinton Chief Complaint Bilateral Knee Pain History of Present Illness Cristian is a very pleasant 66-year-old man, well-known to Dr. Jay's practice. ??He has bilateralknee OA confirmed radiographically. ??He is not ready for knee replacement. ??He treats intermittently with Orthovisc injections.?? The injections were started again last week. ??He states the knees are feeling better.?? No adverse reaction. ??He is ready for the second injections today.? Review of Systems Bilateral knee pain, improving Otherwise negative ROS Physical Exam Vitals & Measurements HR:??60??(Peripheral)?? BP:??104/64?? SpO2:??94%?? HT:??172.72??cm?? WT:??152.5??kg?? BMI:??51.12?? Pain Score:??2?? BSA:??2.7?? The patient is alert and oriented x3. ??Very pleasant. ??No acute distress.?? He appears stated age. ??Build is morbidly obese.?He is less disheveled today, eyes are not bloodshot.?? He is pleasant and cooperative.?? Examination of the bilateral knees reveals no deformity. ??Skin is intact. ??There is no erythema or warmth. ??No signs or symptoms of infection. ??Gentle range of motion is intact, pain-free.? Procedure Risks, benefits and alternatives to these injections are discussed with the patient, verbal consentis obtained. ??Under standard, sterile technique, the anterolateral injection sites of the bilateral knees are meticulously prepped with ChloraPrep x3. ??Then??Orthovisc 30 mg??is injected at each knee without difficulty. ??The patient tolerated both injections very well and dry, sterile bandages are applied. ??Postinjection??instructions are provided. Assessment/Plan 1.??Osteoarthritis of knees, bilateral??M17.0 Cristian is a pleasant 66-year-old man with bilateral knee OA confirmed radiographically. ??He is not interested in knee replacement. ??Orthovisc was started last week. ??His knees are feeling better, noadverse reaction. ??He is ready for the second injections today. ??I am happy to do this for him. ??I will see him back next week for the final injections.?? He is encouraged to contact me with questions or concerns anytime.? Ordered: Orthovisc, 30 mg, Intra-articular, Once, First Dose: 01/26/22 9:55:00 EST, Stop Date: 01/26/22 9:55:00 EST, Physician Stop, Routine ?? Follow Up Instructions With When Contact Information Tamar Biswas APRN, In 1 week [address] [place] [address]- Additional Instructions: OV #3 BILAT KNEES Problem List/Past Medical History Ongoing Arthritis of knee, right Congestive heart failure (CHF) Diverticulitis Heart attack History of skin cancer Hyperlipidemia Hypertension Impaired fasting glucose Morbid obesity Historical No qualifying data Procedure/Surgical History ???Appendectomy???Colostomy formed???Repair of anterior cruciate ligament of knee joint Medications amiodarone 100 mg oral tablet atorvastatin 40 mg oral tablet buPROPion 150 mg/24 hours (XL) oral tablet, extended release Eliquis 5 mg oral tablet Flomax 0.4 mg oral capsule Jardiance 10 mg oral tablet Kenalog-40, 40 mg, Intra-articular, Once metoprolol tartrate 50 mg oral tablet omeprazole 20 mg oral delayed release capsule Orthovisc, 30 mg, Intra-articular, Once Orthovisc, 30 mg, Intra-articular, Once Potassium Chloride (Ayc-Jwlu-Ztl M20) 20 mEq oral tablet, extended release ProAir HFA 90 mcg/inh inhalation aerosol rosuvastatin 20 mg oral tablet spironolactone 25 mg oral tablet torsemide 20 mg oral tablet, 20 mg= 1 tab, Oral, Daily valsartan 40 mg oral tablet Wellbutrin SR 150 mg/12 hours oral tablet, extended release Allergies No Known Allergies Social History Alcohol Past Electronic Cigarette/Vaping Electronic Cigarette Use: Never. 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 Tobacco Never tobacco user Tobacco Use:. Family History Heart attack: Father. Rheumatoid arthritis: Father. Electronically Signed on 01/26/22 09:56 AM Tamar Biswas APRN, Patient Care team information Personnel Name: Es Clinton Address: Address: [address] [place] [address] [place] [id number]
--- OUTSIDE RECORDS SUMMARY | 2022-04-29 13:17 | XMS_ITS | Continuity of Care Document ---
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) - Presence of aortocoronary bypass graft(Final) - Presence of prosthetic heart valve(Final) - Obstructive sleep apnea (adult) (pediatric)(Final) - Morbid (severe) obesity due to excess calories(Final) - Essential (primary) hypertension(Final) - Personal history of nicotine dependence(Final) - HTN (hypertension)(Discharge Diagnosis) - 10/16/21 MICHELLE on CPAP(Discharge Diagnosis) - 10/16/21 Dependence on other enabling machines and devices(Discharge Diagnosis) - 10/16/21 Acute on chronic systolic (congestive) heart failure(Discharge Diagnosis) - 10/16/21 Atrial fibrillation(Discharge Diagnosis) - 10/16/21 Discharge Disposition: Home or Self Care Attending Physician: Estuardo Liriano Admitting Physician: Estuardo Liriano Allergies, Adverse Reactions, Alerts No Known Allergies Assessment and Plan Extracted from: Title:nursing Author:Maria De Jesus Pimentel RN Mynor e:10/17/21 Went over discharge paperwor k with patient. Answered all questions. Patient belongings packed up. Patient waiting for ride from spouse but will be wheeled out in good condition Extracted from: Title:Admission Note 7am RN Author:Moraima Carmona RN Date:10/15/21 Pt arrived to floor by ngozi ponce. Pt set up in room and sitting up in chair. Pt on 2 L of oxygen via NC. Pt denies any pain. Pt has IV in right forearm, no complications noted to site. Pt states he is SOB at rest and with minimal excertion. Pt has 2+ Pittin Edema bilateral to legs. Pt lungs diminished. Pt has call ahn at his side and personal items within reach. Diagnostic Tests Pending * Lavender Hold 10/16/21 Future Scheduled Tests Radiology* US Echocardiogram Complete 10/16/21 Functional Status 10/17/21 History of Fall in Last 3 Months Ramires N o Mobility Cesar Slightly limited 10/15/21 Recent Travel History No recent travel Family Member Travel History No recent t sanaz COVID-19 Screening None Medications amiodarone 100 mg oral tablet 100 mg = 1 tab(s), Oral, Daily, # 60 tab(s), 0 Refill(s) Start Date: 10/15/21 Status: Ordered apixaban 5 mg oral tablet 5 mg = 1 tab(s), Oral, BID, # 60 tab(s), 0 Refill(s) Start Date: 10/15/21 Status: Ordered BuPROPion (Eqv-Wellbutrin SR) 150 mg, Oral, Daily, 0 Refill(s) Start Date: 10/15/21 Status: Ordered Colace 100 mg = 10 mL, Oral, BID, 0 Refill(s) Start Date: 10/16/21 Status: Ordered Jardiance 10 mg oral tablet 10 mg = 1 tab(s), Oral, qAM, 0 Refill(s) Start Date: 10/15/21 Status: Ordered metoprolol tartrate 75 mg oral tablet 75 mg = 1 tab(s), Oral, Daily, 0 Refill(s) Start Date: 10/15/21 Status: Ordered omeprazole 20 mg oral delayed release capsule 20 mg = 1 cap(s), Oral, Daily, # 90 cap(s), 0 Refill(s) Start Date: 10/15/21 Status: Ordered rosuvastatin 10 mg oral tablet 20 mg = 2 tab(s), 0 Refill(s) Start Date: 10/15/21 Status: Ordered spironolactone 50 mg oral tablet 25 mg = 0.5 tab(s), Oral, Daily, # 30 tab(s), 0 Refill(s) Start Date: 10/15/21 Status: Ordered tamsulosin 0.4 mg oral capsule 0.8 mg = 2 cap(s), Oral, HS, # 60 cap(s), 0 Refill(s), Pharmacy: [facility] [id number], 2 cap(s) Oral HS, 172.7, cm, 10/15/21 14:05:00 EDT, Height/Length Dosing, 159.666, kg, 10/15/21 14:05:00 EDT, Weight Dosing Start Date: 10/17/21 Status: Ordered torsemide 20 mg oral tablet 40 mg = 2 tab(s), Oral, Daily, # 60 tab(s), 0 Refill(s), Pharmacy: [facility] [id number], 2 tab(s) Oral Daily, 172.7, cm, 10/15/21 14:05:00 EDT, Height/Length Dosing, 159.666, kg, 10/15/21 14:05:00 EDT, Weight Dosing Start Date: 10/17/21 Status: Ordered torsemide 20 mg oral tablet 20 mg = 1 tab(s), Oral, BID, # 60 tab(s), 0 Refill(s), Pharmacy: [facility] [id number], 1 tab(s) Oral BID, 172.7, cm, 10/15/21 14:05:00 EDT, Height/Length Dosing, 159.666, kg, 10/15/21 14:05:00 EDT, Weight Dosing Start Date: 10/17/21 Status: Ordered valsartan 40 mg oral tablet 0.5 tab (20mg), Oral, BID, 0 Refill(s) Start Date: 10/15/21 Stop Date: 11/14/21 Status: Ordered Mental Status 10/17/21 Sensory Perception Cesar No impairment Level of Consciousness Alert Problem List Condition Effective Dates Status Health Status Inform ant Atrial fibrillation(Confirmed) Active CAD (coronary artery disease)(Confirmed) Active HTN (hypertension)(Confirmed) Active MICHELLE on CPAP(Confirmed) Active Results Laboratory List Name Date Basic Metabolic Panel DH 10/17/21 Magnesium DH 10/17/21 Basic Metabolic Panel DH 10/16/21 Magnesium DH 10/16/21 SARS-CoV-2 (COVID-19)/Influenza PCR (Emy t) 10/15/21 Most recent to oldest [Reference Range]: 1 2 Anion Gap DH [5-15 mmol/L] 9 mmol/L (10/17/21 5:35 AM) 8 mmol/L (10/16/21 4:50 AM) Chloride Lvl DH [98-107 mmol/L] 97 mmol/ L *LOW* (10/17/21 5:35 AM) 101 mmol/L (10/16/21 4:50 AM) CO2 DH [22-31 mmol/L] 30 mmol/L (10/17/21 5:35 AM) 31 mmol/L (10/16/21 4:50 AM) Est GFR DH [>=60 mL/min/1.73 m2] 67 mL/m in/1.73 m2 1 (10/17/21 5:35 AM) 71 mL/min/1.73 m2 2 (10/16/21 4:50 AM) Glucose Lvl DH [65-99 mg/dL] 176 mg/dL *HI* (10/17/21 5:35 AM) 138 mg/dL *HI* (10/16/21 4:50 AM) Potassium Lvl DH [3.5-5.0 mmol/L] 3.8 mm ol/L (10/17/21 5:35 AM) 4.0 mmol/L (10/16/21 4:50 AM) Sodium Lvl DH [135-145 mmol/L] 136 mmol/ L (10/17/21 5:35 AM) 140 mmol/L (10/16/21 4:50 AM) BUN DH [10-20 mg/dL] 19 mg/dL (10/17/21 5:35 AM) 18 mg/dL (10/16/21 4:50 AM) Calcium Lvl DH [8.5-10.5 mg/dL] 8.8 mg/d L (10/17/21 5:35 AM) 9.1 mg/dL (10/16/21 4:50 AM) Magnesium Lvl DH [0.69-1.07 mmol/L] 0.93 mmol/L (10/17/21 5:35 AM) 0.93 mmol/L (10/16/21 4:50 AM) Creatinine [0.80-1.50 mg/dL] 1.22 mg/dL (10/17/21 5:35 AM) 1.16 mg/dL (10/16/21 4:50 AM) Creatinine 1.43 mg/dL (10/15/21 2:00 AM) Influenza A [Negative] Negative (10/15/21 1:15 PM) Influenza B [Negative] Negative (10/15/21 1:15 PM) Employed in healthcare? No *NA* (10/15/21 1:15 PM) Symptomatic as defined by CDC? No *NA* (10/15/21 1:15 PM) Hospitalized due to COVID-19? No *NA* (10/15/21 1:15 PM) In ICU? No *NA* (10/15/21 1:15 PM) Group care resident? No *NA* (10/15/21 1:15 PM) status? Not *NA* (10/15/21 1:15 PM) SARS-CoV-2 (COVID-19) PCR [Not Detected] Not Detected (10/15/21 1:15 PM) 1Result Comment: This patient's estimated GFR was calculated using the 2020 CKD- EPI equation. The estimated GFR can vary from the measured GFR by up to 30% in the absence of rapidly changing kidney function. Assessment of the estimated GFR is not appropriate when creatinine concentrations are rapidly changing. For clinical situations in which a more precise estimate of GFR is necessary, consider alternative methods of GFR estimation such as a 24-hour urine creatinine clearance. Assignment of CKD stage 1-5 for patients with an eGFR near the transition point between stages may be based on clinical assessment of muscle mass and symptoms in addition to eGFR. 2Result Comment: This patient's estimated GFR was calculated using the 2020 CKD- EPI equation. The estimated GFR can vary from the measured GFR by up to 30% in the absence of rapidly changing kidney function. Assessment of the estimated GFR is not appropriate when creatinine concentrations are rapidly changing. For clinical situations in which a more precise estimate of GFR is necessary, consider alternative methods of GFR estimation such as a 24-hour urine creatinine clearance. Assignment of CKD stage 1-5 for patients with an eGFR near the transition point between stages may be based on clinical assessment of muscle mass and symptoms in addition to eGFR. Radiology Reports * Exam Date Time Procedure Performing Provider Status 10/15/21 2:00 PM US Point of Care EZEQUIEL Ron; Hugo lau Notes: (US Point of Care) Reason For Exam: eval pocus US POINT OF CARE Point of care US performed by ordering provider. Please refer to provider note for interpretation Final Dictated: 10/15/2021 2:00 pm Generated Domain User for [id number] Signed (Electronic Signature): 10/15/2021 2:00 pm Signed by: Generated Domain User for [id number] Technologist: EZEQUIEL Ron Vital Signs Most recent to oldest [Reference Range]: 1 2 3 Temperature Oral [35.8-37.3 DegC] 36.6 DegC (10/17/21 7:17 AM) 36.6 DegC (10/17/21 2:52 AM) 36.5 DegC (10/16/21 8:24 PM) Temperature Oral (DegF) 97.88 DegF (10/17/21 7:17 AM) 97.7 DegF (10/16/21 8:24 PM) 97.7 DegF (10/16/21 8:00 AM) Peripheral Pulse Rate [60-100 bpm] 61 bpm (10/17/21 7:17 AM) 83 bpm (10/16/21 8:24 PM) 54 bpm *LOW* (10/16/21 3:00 PM) Heart Rate Monitored [60-100 bpm] 52 bpm *LOW* (10/16/21 2:00 PM) 60 bpm (10/15/21 7:43 PM) 18 bpm *LOW* (10/15/21 1:34 PM) Respiratory Rate [14-20 br/min] 16 br/min (10/17/21 7:17 AM) 20 br/min (10/17/21 2:52 AM) 20 br/min (10/16/21 3:00 PM) Blood Pressure [90-140/60-90 mmHg] 126/78mmHg (10/17/21 7:17 AM) 120/62mmHg (10/17/21 3:55 AM) 112/61mmHg (10/17/21 3:54 AM) Mean Arterial Pressure, Cuff [65-100 mmHg] 81 mmHg (10/16/21 3:00 PM) 95 mmHg (10/16/21 8:00 AM) Mean Arterial Pressure, Cuff 94 mmHg (10/15/21 4:01 PM) BP Site Right arm (10/17/21 3:55 AM) Left arm (10/17/21 3:54 AM) Left arm (10/16/21 8:24 PM) SpO2 [92-100 %] 93 % (10/17/21 7:17 AM) 97 % (10/17/21 2:52 AM) 94 % (10/16/21 8:24 PM) BP Method Automatic (10/16/21 3:00 PM) Automatic (10/16/21 8:00 AM) Height 172.7 cm (10/16/21 9:47 AM) Height/Length Dosing 172.7 cm (10/15/21 2:05 PM) 172.7 cm (10/15/21 12:48 PM) Weight 157.1 kg (10/17/21 5:24 AM) 157 kg (10/16/21 9:47 AM) 157 kg (10/16/21 5:28 AM) Weight Dosing 159.666 kg (10/15/21 2:05 PM) 159.666 kg (10/15/21 12:49 PM) 159.666 kg (10/15/21 12:48 PM) Body Mass Index Measured 52.64 kg/m2 (10/16/21 9:47 AM) Social History Social History Type Response Tobacco Former tobacco user Tobacco Use:. Sex Hospital Discharge Instructions Patient Education 10/17/2021 10:31:14 Discharge Instructions - General ([email or web address]) Instructions after your Hospitalization: Medication Changes: Incease the morning dose of torsemide: take 40mg in the morning, 20mg midday, and 20mg in the afternoon. Increase the tamsulosin dose. Activity: Walk several times a day. Take your time. Take breaks as needed. Supplemental oxygen: None Pending test results: None Future tests ordered: None Call your healthcare provider if: If you develop persistent fevers >100.5F, abd pain, nausea/vomiting, shortness of breath, chest pain. Weigh yourself regularly and call your primary care team or your disaster recovery manager if you notice more than a 5 pound weight change from your normal weight. Also call if you notice increased swelling in your legs. 10/16/2021 23:20:11 Heart Failure Action Plan Heart Failure Action Plan A heart failure action plan helps you understand what to do when you have symptoms of heart failure. Your action plan is a color-coded plan that lists the symptoms to watch for and indicates what actions to take. ??? If you have symptoms in the red zone, you need medical care right away. ??? If you have symptoms in the yellow zone, you are having problems. ??? If you have symptoms in the green zone, you are doing well. Follow the plan that was created by you and your health care provider. Review your plan each time you visit your health care provider. Red zone These signs and symptoms mean you should get medical help right away: ??? You have trouble breathing when resting. ??? You have a dry cough that is getting worse. ??? You have swelling or pain in your legs or abdomen that is getting worse. ??? You suddenly gain more than 2???3 lb (0.9???1.4 kg) in 24 hours, or more than 5 lb (2.3 kg) in a week. This amount may be more or less depending on your condition. ??? You have trouble staying awake or you feel confused. ??? You have chest pain. ??? You do not have an appetite. ??? You pass out. ??? You have worsening sadness or depression. If you have any of these symptoms, call your local emergency services (911 in the [place] right away.Do not drive yourself to the hospital. Yellow zone These signs and symptoms mean your condition may be getting worse and you should make some changes: ??? You have trouble breathing when you are active, or you need to sleep with your head raised on extra pillows to help you breathe. ??? You have swelling in your legs or abdomen. ??? You gain 2???3 lb (0.9???1.4 kg) in 24 hours, or 5 lb (2.3 kg) in a week. This amount may be more or less depending on your condition. ??? You get tired easily. ??? You have trouble sleeping. ??? You have a dry cough. If you have any of these symptoms: ??? Contact your health care provider within the next day. ??? Your health care provider may adjust your medicines. Green zone These signs mean you are doing well and can continue what you are doing: ??? You do not have shortness of breath. ??? You have very little swelling or no new swelling. ??? Your weight is stable (no gain or loss). ??? You have a normal activity level. ??? You do not have chest pain or any other new symptoms. Follow these instructions at home: ??? Take prvi-ytk-olqbogm and prescription medicines only as told by your health care provider. ??? Weigh yourself daily. Your target weight is 301 lb ( 137 kg). ??? Call your health care provider if you gain more than 5 lb (2.2 kg) in 24 hours, or more than 10lb (4.4 kg) in a week. ??? Health care provider name: Shalom Grant (from [facility]) ??? Health care provider phone number: [phone] ??? Eat a heart-healthy diet. Work with a diet and nutrition services manager (dietitian) to create an eating plan that is best for you. ??? Keep all follow-up visits. This is important. Where to find more information ??? [place] [employer]: www.heart.org Summary ??? A heart failure action plan helps you understand what to do when you have symptoms of heart failure. ??? Follow the action plan that was created by you and your health care provider. ??? Get help right away if you have any symptoms in the red zone. This information is not intended to replace advice given to you by your health care provider. Make sure you discuss any questions you have with your health care provider. Document Revised: 09/22/2020 Document Reviewed: 09/22/2020 [employer] Patient Education ?? 2021 [employer] 10/16/2021 13:09:27 Living With Sleep Apnea Living With Sleep Apnea Sleep apnea is a condition in which breathing pauses or becomes shallow during sleep. Sleep apnea is most commonly caused by a collapsed or blocked airway. People with sleep apnea usually snore loudly. They may have times when they gasp and stop breathing for 10 seconds or more during sleep. This may happen many times during the night. The breaks in breathing also interrupt the deep sleep that you need to feel rested. Even if you do not completely wake up from the gaps in breathing, your sleep may not be restful and you feel tired during the day. You may also have a headache in the morning and low energy during the day, and you may feel anxious or depressed. How can sleep apnea affect me? Sleep apnea increases your chances of extreme tiredness during the day (daytime fatigue). It can also increase your risk for health conditions, such as: ??? Heart attack. ??? Stroke. ??? Obesity. ??? Type 2 diabetes. ??? Heart failure. ??? Irregular heartbeat. ??? High blood pressure. If you have daytime fatigue as a result of sleep apnea, you may be more likely to: ??? Perform poorly at school or work. ??? Fall asleep while driving. ??? Have difficulty with attention. ??? Develop depression or anxiety. ??? Have sexual dysfunction. What actions can I take to manage sleep apnea? Sleep apnea treatment ??? If you were given a device to open your airway while you sleep, use it only as told by your health care provider. You may be given: ??? An oral appliance. This is a custom-made mouthpiece that shifts your lower jaw forward. ??? A continuous positive airway pressure (CPAP) device. This device blows air through a mask when you breathe out (exhale). ??? A nasal expiratory positive airway pressure (EPAP) device. This device has valves that you put into each nostril. ??? A bi-level positive airway pressure (BPAP) device. This device blows air through a mask when you breathe in (inhale) and breathe out (exhale). ??? You may need surgery if other treatments do not work for you. Sleep habits ??? Go to sleep and wake up at the same time every day. This helps set your internal clock (circadian rhythm) for sleeping. ??? If you stay up later than usual, such as on weekends, try to get up in the morning within 2 hours of your normal wake time. ??? Try to get at least 7???9 hours of sleep each night. ??? Stop using a computer, tablet, and mobile phone a few hours before bedtime. ??? Do not take long naps during the day. If you nap, limit it to 30 minutes. ??? Have a relaxing bedtime routine. Reading or listening to music may relax you and help you sleep. ??? Use your bedroom only for sleep. ??? Keep your television and computer out of your bedroom. ??? Keep your bedroom cool, dark, and quiet. ??? Use a supportive mattress and pillows. ??? Follow your health care provider's instructions for other changes to sleep habits. Nutrition ??? Do not eat heavy meals in the evening. ??? Do not have caffeine in the later part of the day. The effects of caffeine can last for more than 5 hours. ??? Follow your health care provider's or dietitian's instructions for any diet changes. Lifestyle ??? Do not drink alcohol before bedtime. Alcohol can cause you to fall asleep at first, but then itcan cause you to wake up in the middle of the night and have trouble getting back to sleep. ??? Do not use any products that contain nicotine or tobacco. These products include cigarettes, chewing tobacco, and vaping devices, such as e-cigarettes. If you need help quitting, ask your health care provider. Medicines ??? Take liae-ywq-kjxfxfx and prescription medicines only as told by your health care provider. ??? Do not use elpz-zaw-hivxzms sleep medicine. You can become dependent on this medicine, and it can make sleep apnea worse. ??? Do not use medicines, such as sedatives and narcotics, unless told by your health care provider. Activity ??? Exercise on most days, but avoid exercising in the evening. Exercising near bedtime can interfere with sleeping. ??? If possible, spend time outside every day. Natural light helps regulate your circadian rhythm. General information ??? Lose weight if you need to, and maintain a healthy weight. ??? Keep all follow-up visits. This is important. ??? If you are having surgery, make sure to tell your health care provider that you have sleep apnea. You may need to bring your device with you. Where to find more information Learn more about sleep apnea and daytime fatigue from: ??? [place] [employer]: sleepassociation.org ??? National Sleep Foundation: sleepfoundation.org ??? National Heart, Lung, and [employer] [place]: nhlbi.nih.gov Summary ??? Sleep apnea is a condition in which breathing pauses or becomes shallow during sleep. ??? Sleep apnea can cause daytime fatigue and other serious health conditions. ??? You may need to wear a device while sleeping to help keep your airway open. ??? If you are having surgery, make sure to tell your health care provider that you have sleep apnea. You may need to bring your device with you. ??? Making changes to sleep habits, diet, lifestyle, and activity can help you manage sleep apnea. This information is not intended to replace advice given to you by your health care provider. Make sure you discuss any questions you have with your health care provider. Document Revised: 01/16/2021 Document Reviewed: 01/16/2021 [employer] Patient Education ?? 2021 [employer]. 10/16/2021 13:09:13 Heart Failure, Self-Care Heart Failure, Self-Care Heart failure is a serious condition. The following information explains the things you need to do to take care of yourself after a heart failure diagnosis. You may be asked to change your diet, takecertain medicines, and make other lifestyle changes in order to stay as healthy as possible. Your health care provider may also give you more specific instructions. If you have problems or questions,contact your health care provider. What are the risks? Having heart failure puts you at higher risk for certain problems. These problems can get worse if you do not take good care of yourself. Problems may include: ??? Damage to the kidneys, liver, or lungs. ??? Malnutrition. ??? Abnormal heart rhythms. ??? Blood clotting issues that could cause a stroke. Supplies needed: ??? Scale for monitoring weight. ??? Blood pressure monitor. ??? Notebook. ??? Medicines. How to care for yourself when you have heart failure Medicines Take rvif-gfl-cudiryu and prescription medicines only as told by your health care provider. Medicines reduce the workload of your heart, slow the progression of heart failure, and improve symptoms. Take your medicines every day. ??? Do not stop taking your medicine unless your health care provider tells you to do so. ??? Do not skip any dose of medicine. ??? Refill your prescriptions before you run out of medicine. ??? Talk with your health care provider if you cannot afford your medicines. Eating and drinking ??? Eat heart-healthy foods. Talk with a dietitian to make an eating plan that is right for you. ??? Limit salt (sodium) if told by your health care provider. Sodium restriction may reduce symptoms of heart failure. Ask a dietitian to recommend heart-healthy seasonings. ??? Use healthy cooking methods instead of frying. Healthy methods include roasting, grilling, broiling, baking, poaching, steaming, and stir-frying. ??? Choose foods that contain no trans fat and are low in saturated fat and cholesterol. Healthy choices include fresh or frozen fruits and vegetables, fish, lean meats, legumes, fat-free or low-fat dairy products, and whole-grain or high-fiber foods. ??? Limit your fluid intake, if directed by your health care provider. Fluid restriction may reducesymptoms of heart failure. Alcohol use ??? Do not drink alcohol if: ??? Your health care provider tells you not to drink. ??? Your heart was damaged by alcohol, or you have severe heart failure. ??? You are , may be , or are planning to become . ??? If you drink alcohol: ??? Limit how much you have to: ??? 0???1 drink a day for women. ??? 0???2 drinks a day for men. ??? Know how much alcohol is in your drink. In the [place] one drink equals one 12 oz bottle of beer (355 mL), one 5 oz glass of wine (148 mL), or one 1?? oz glass of hard liquor (44 mL). Lifestyle ??? Do not use any products that contain nicotine or tobacco. These products include cigarettes, chewing tobacco, and vaping devices, such as e-cigarettes. If you need help quitting, ask your health care provider. ??? Do not use nicotine gum or patches before talking to your health care provider. ??? Do not use illegal drugs. ??? Work with your health care provider to safely reach the right body weight. ??? Do physical activity if told by your health care provider. Talk to your health care provider before you begin an exercise if: ??? You are an older adult. ??? You have severe heart failure. ??? Learn to manage stress. If you need help to do this, ask your health care provider. ??? Participate in or seek physical rehabilitation as needed to keep or improve your independence and quality of life. ??? Participate in a cardiac rehabilitation program, which is a treatment program to improve your health and well-being through exercise training, education, and counseling. ??? Plan rest periods when you get tired. Monitoring important information ??? Weigh yourself every day. This will help you to notice if too much fluid is building up in yourbody. ??? Weigh yourself every morning after you urinate and before you eat breakfast. ??? Wear the same amount of clothing each time you weigh yourself. ??? Record your daily weight. Provide your health care provider with your weight record. ??? Monitor and record your pulse and blood pressure as told by your health care provider. Dealing with extreme temperatures ??? If the weather is extremely hot: ??? Avoid vigorous physical activity. ??? Use air conditioning or fans, or find a cooler location. ??? Avoid caffeine and alcohol. ??? Wear loose-fitting, lightweight, and light-colored clothing. ??? If the weather is extremely cold: ??? Avoid vigorous activity. ??? Layer your clothes. ??? Wear mittens or gloves, a hat, and a face covering when you go outside. ??? Avoid alcohol. Follow these instructions at home: ??? Stay up to date with vaccines. Pneumococcal and flu (influenza) vaccines are especially important in preventing infections of the airways. ??? Keep all follow-up visits. This is important. Contact a health care provider if you: ??? Gain 2???3 lb (1???1.4 kg) in 24 hours or 5 lb (2.3 kg) in a week. ??? Have increasing shortness of breath. ??? Are unable to participate in your usual physical activities. ??? Get tired easily. ??? Cough more than normal, especially with physical activity. ??? Lose your appetite or feel nauseous. ??? Have any swelling or more swelling in areas such as your hands, feet, ankles, or abdomen. ??? Are unable to sleep because it is hard to breathe. ??? Feel like your heart is beating quickly (palpitations). ??? Become dizzy or light-headed when you stand up. ??? Have feelings of depression or sadness. Get help right away if you: ??? Have trouble breathing. ??? Notice, or your family notices, a change in your awareness, such as having trouble staying awake or concentrating. ??? Have pain or discomfort in your chest. ??? Have an episode of fainting (syncope). These symptoms may represent a serious problem that is an emergency. Do not wait to see if the symptoms will go away. Get medical help right away. Call your local emergency services (911 in the [place] Do not drive yourself to the hospital. Summary ??? Heart failure is a serious condition. To care for yourself, you may be asked to change your diet, take certain medicines, and make other lifestyle changes. ??? Take your medicines every day. Do not stop taking them unless your health care provider tells you to do so. ??? Limit salt and eat heart-healthy foods, such as fresh or frozen fruits and vegetables, fish, lean meats, legumes, fat-free or low-fat dairy products, and whole-grain or high-fiber foods. ??? Ask your health care provider if you have any alcohol restrictions. You may have to stop drinking alcohol if you have severe heart failure. ??? Contact your health care provider if you notice problems, such as rapid weight gain or a fast heartbeat. Get help right away if you faint or have chest pain or trouble breathing. This information is not intended to replace advice given to you by your health care provider. Make sure you discuss any questions you have with your health care provider. Document Revised: 08/30/2020 Document Reviewed: 08/30/2020 [employer] Patient Education ?? 2021 [employer] 10/16/2021 13:08:47 Heart Failure Exacerbation Heart Failure Exacerbation Heart failure is a condition in which the heart has trouble pumping blood. This may mean that the heart cannot pump enough blood out to the body or that the heart does not fill up with enough blood. When this happens, parts of the body do not get the blood and oxygen they need to function properly.This can cause symptoms such as breathing problems, tiredness (fatigue), swelling, and confusion. Heart failure exacerbation refers to heart failure symptoms that get worse. The symptoms may get worse suddenly or develop slowly over time. Heart failure exacerbation is a serious medical problem that should be treated right away. What are the causes? A heart failure exacerbation can be triggered by: ??? Not taking your heart failure medicines correctly. ??? Infections. ??? Eating an unhealthy diet or a diet that is high in salt (sodium). ??? Drinking too much fluid. ??? Drinking alcohol. ??? Using drugs, such as cocaine or methamphetamine. ??? Not exercising. Other causes include: ??? Other heart conditions such as an irregular heart rhythm (arrhythmia). ??? Worsening heart valve function. ??? Low blood counts (anemia). ??? Other medical problems, such as kidney failure, thyroid problems, or diabetes mellitus. Sometimes the cause of the exacerbation is not known. What are the signs or symptoms? When heart failure symptoms suddenly or slowly get worse, this may be a sign of heart failure exacerbation. Symptoms of heart failure include: ??? Shortness of breath during activity or exercise. ??? A cough that does not go away. ??? Swelling of the legs, ankles, feet, or abdomen. ??? Losing or gaining weight for no reason. ??? Trouble breathing when lying down. ??? Increased heart rate or irregular heartbeat. ??? Fatigue. ??? Feeling light-headed, dizzy, or close to fainting. ??? Nausea or lack of appetite. How is this diagnosed? This condition is diagnosed based on: ??? Your symptoms and medical history. ??? A physical exam. You may also have tests, including: ??? Electrocardiogram (ECG). This test measures the electrical activity of your heart. ??? Echocardiogram. This test uses sound waves to take a picture of your heart to see how well it works. ??? Blood tests. ??? Imaging tests, such as: ??? Chest X-ray. ??? MRI. ??? Ultrasound. ??? Stress test. This test examines how well your heart functions while you exercise on a treadmillor exercise bike. If you cannot exercise, medicines may be used to increase your heartbeat in placeof exercise. ??? Cardiac catheterization. During this test, a thin, flexible tube (catheter) is inserted into a blood vessel and threaded up to your heart. This test allows your health care provider to check the arteries that lead to your heart (coronary arteries). ??? Right heart catheterization. During this test, the pressure in your heart is measured. How is this treated? This condition may be treated by: ??? Adjusting your heart medicines. ??? Maintaining a healthy lifestyle. This includes: ??? Eating a heart-healthy diet that is low in sodium. ??? Not using products that contain nicotine or tobacco. ??? Regular exercise. ??? Monitoring your fluid intake. ??? Monitoring your weight and reporting changes to your health care provider. ??? Not using alcohol or drugs. ??? Treating sleep apnea, if you have this condition. ??? Surgery. This may include: ??? Placing a pacemaker to improve heart function (cardiac resynchronization therapy). ??? Implanting a device that can correct heart rhythm problems (implantable cardioverter defibrillator). ??? Implanting a pulmonary arterial pressure monitor to monitor your fluid balance. ??? Connecting a device to your heart to help it pump blood (ventricular assist device). ??? Heart transplant. Follow these instructions at home: Medicines ??? Take rnwk-gaw-bcovakm and prescription medicines only as told by your health care provider. ??? Do not stop taking your medicines or change the amount you take. If you are having problems or side effects from your medicines, talk to your health care provider. ??? If you are having difficulty paying for your medicines, contact a outreach and education social worker or your clinic.There are many programs to assist with medicine costs. ??? Talk to your health care provider before starting any new medicines or supplements. ??? Make sure your health care provider and pharmacist have a list of all the medicines you are taking. Eating and drinking ??? Avoid drinking alcohol. ??? Eat a heart-healthy diet as told by your health care provider. This includes: ??? Plenty of fruits and vegetables. ??? Lean proteins. ??? Low-fat dairy. ??? Whole grains. ??? Foods that are low in sodium. Activity ??? Exercise regularly as told by your health care provider. Balance exercise with rest. ??? Ask your health care provider what activities are safe for you. This includes sexual activity, exercise, and daily tasks at home or work. Lifestyle ??? Do not use any products that contain nicotine or tobacco. These products include cigarettes, chewing tobacco, and vaping devices, such as e-cigarettes. If you need help quitting, ask your health care provider. ??? Maintain a healthy weight. Ask your health care provider what weight is healthy for you. ??? Consider joining a patient support group. This can help with emotional problems you may have, such as stress and anxiety. ??? Do not use drugs. General instructions ??? Stay up to date with vaccines. Talk to your health care provider about flu and pneumonia vaccines. ??? Keep a list of medicines that you are taking. This may help in emergency situations. ??? Keep all follow-up visits. This is important. Contact a health care provider if: ??? You have questions about your medicines or you miss a dose. ??? You feel anxious, depressed, or stressed. ??? You develop swelling in your feet, ankles, legs, or abdomen. ??? You develop a cough. ??? You have a fever. ??? You have trouble sleeping. ??? You gain 2???3 lb (1???1.4 kg) in 24 hours or 5 lb (2.3 kg) in a week. Get help right away if: ??? You have chest pain or pressure. ??? You have shortness of breath while resting. ??? You have severe fatigue. ??? You are confused. ??? You have severe dizziness. ??? You have a rapid or irregular heartbeat. ??? You have nausea or you vomit. ??? You have a cough that is worse at night or you cannot lie flat. ??? You have severe depression or sadness. These symptoms may represent a serious problem that is an emergency. Do not wait to see if the symptoms will go away. Get medical help right away. Call your local emergency services (911 in the [place] Do not drive yourself to the hospital. Summary ??? When heart failure symptoms get worse, it is called heart failure exacerbation. ??? Common causes of this condition include taking medicines incorrectly, infections, and drinking alcohol. ??? This condition may be treated by adjusting medicines, maintaining a healthy lifestyle, or surgery. ??? Do not stop taking your medicines or change the amount you take. If you are having problems or side effects from your medicines, talk to your health care provider. This information is not intended to replace advice given to you by your health care provider. Make sure you discuss any questions you have with your health care provider. Document Revised: 08/30/2020 Document Reviewed: 08/30/2020 [employer] Patient Education ?? 2021 [employer] Follow Up Care 10/15/2021 11:25:52 With:Naseem Zuniga MD Address: [place], [place] When:11/11/2021 15:00:00 Comments:[facility] With:Follow-up with your specialist Address: When: Unknown Comments:A request for a repeat echocardiogram at has been made, you should also call your Cardiology Clinic to see if they want to see you before the echocardiogram or after. With:Es Clinton Address: [address] [place] [id number] When:10/28/2021 11:00:00 Comments:Please follow up your hospital stay with your Primary Care Provider. Please arrive 15 minutes early. Imaging * Generated Domain User for [id number]: VERIFY, PERFORM, VERIFY Event Display: Report Authored Date: Point of care US performed by ordering provider. Please refer to provider note for interpretation Final Dictated: 10/15/2021 2:00 pm Generated Domain User for [id number] Signed (Electronic Signature): 10/15/2021 2:00 pm Signed by: Generated Domain User for [id number] Technologist: EZEQUIEL Ron Patient Care team information Personnel Name: Es Clinton Address: Address: [address] [place] [phone] [place]
--- OUTSIDE RECORDS SUMMARY | 2022-04-29 13:17 | XMS_ITS ---
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 Active 137197405 Problem Hypertension I10 Active 77989733 Problem Congestive heart failure I50.9 Active 72106741 Problem Morbid obesity E66.01 Active 006471605 Problem Obstructive sleep apnea G47.33 Active 29067729 ALLERGIES No Known Allergies ENCOUNTERS Encounter Location Date Diagnosis [facility] [address] [place], [place] [id number] June, Acute anterior anal fissure K60.0 and Grade I hemorrhoids K64.0 [facility] Audiology [address] [place], [place] [id number] June, [facility] Audiology [address] [place] [address] [address] [place], [place] [id number] May, Sensorineural hearing loss (SNHL) of both ears H90.3 [facility] Audiology [address] [place], [place] [id number] Apr, [facility] Otolaryngology [address] [place] [address] [address] [place], [place] [id number] Apr, Sensory hearing loss, 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 [facility] Audiology [address] [place], [place] [id number] Apr, Sensorineural hearing loss (SNHL) of both ears H90.3 [facility] Primary Care [address] [place], [place] [id number] Mar, [facility] Pulmonology [address] [facility] [address] [place], [place] [id number] Dec, Obstructive sleep apnea G47.33 ; Morbid obesity E66.01 ; Congestive heart failure I50.9 and Hypertension I10 [facility] [address] [facility] [address] [place], [place] [id number] Oct, Obstructive sleep apnea 327.23 ; Morbid obesity 278.01 ; Congestive heart failure 428.0 and Hypertension 401.9 [facility] [address] [facility] [address] [place], [place] [id number] Sep, [facility] Pulmonology [address] [facility] [address] [place], [place] [id number] Sep, Snoring 786.09 ; APNEA 786.03 ; Morbid obesity 278.01 ; Congestive heart failure 428.0 and Hypertension 401.9 IMMUNIZATIONS Vaccine Route Administration Date Status Pneumovax [id number] Unknown September 05, 2001 Admi nistered Pneumovax [id number] Unknown Mar 30, 1995 Admin istered Tdap - Adult Unknown Mar 31, 2011 Administered SOCIAL HISTORY Never Assessed REASON FOR REFERRAL FUNCTIONAL STATUS PLAN OF CARE VITAL SIGNS Height 5 ft 9 in in 2021-07-06 Height 5 ft 9 in in 2017-04-26 Height 5 ft 9 in in 2014-12-26 Height 5 ft 9 in in 2014-11-11 Height 5 ft 9 in in 2014-10-08 Weight 337.0 lbs 2021-07-06 Weight 280 lbs 2017-04-26 Weight 324 lbs 2014-12-26 Weight 328 lbs 2014-11-11 Weight 326 lbs 2014-10-08 Temperature 96.8 degrees Fahrenheit Heart Rate 55 /min 2021-07-06 Heart Rate 87 /min 2014-12-26 Heart Rate 72 /min 2014-11-11 Heart Rate 72 /min 2014-10-08 Oximetry 92 2021-07-06 Oximetry 95 2014-12-26 Oximetry 96 2014-11-11 Oximetry 94 2014-10-08 Respiratory Rate 16 /min 2014-12-26 Respiratory Rate 16 /min 2014-11-11 Respiratory Rate 16 /min 2014-10-08 BMI 49.76 kg/m2 2021-07-06 BMI 41.34 kg/m2 2017-04-26 BMI 47.84 kg/m2 2014-12-26 BMI 48.43 kg/m2 2014-11-11 BMI 48.14 kg/m2 2014-10-08 Blood pressure systolic 116 mm Hg Blood pressure diastolic 60 mm Hg 2021-06 MEDICATIONS Medication Instructions Dosage Frequency Start Date End Date Duration Status Jardiance 10 MG Orally Once a day 1 tablet 24h 30 day(s) Active Lipitor 40 MG Orally Once a day 1 tablet 24h Active Flomax 0.4 MG Orally Once a day 1 capsule 24h Active ProAir HFA 108 (90 Base) MCG/ACT Inhalation every 6 hrs 2 puffs as needed 6h Active Pacerone 200 MG Orally Once a day 1 tablet 24h 30 day(s) Active Toprol XL 50 MG Orally Once a day 1 tablet 24h Active Spironolactone 25 MG 1 tablet 30 day(s) Active Wellbutrin SR 150 MG Orally Once a day 1 tablet in the morning 24h 30 day(s) Active Omeprazole 20 MG Orally Once a day 1 capsule 30 minutes before morning meal 24h 30 day(s) Active Eliquis 5 MG as directed Active Valsartan 40 MG Orally Twice a day 1/2 tablet 12h Active Aspirin EC 81 MG Orally Once a day 1 tablet 24h Active PROCEDURES Procedure Date Ordered Result Body Site BATTERY FOR GARCIA June 02, 2017 DISPENSING FEE BINAURAL June 02, 2017 Hearing Aid digital binaural BTE June 02, 2017 COMPREHENSIVE AUDIOMET THRESH AND SPEECH April 26 8 RESULTS No Results REASON FOR VISIT GS-Rectal pain, ANGELICA - Rectal pain, bill for 1calendar 07/20, AUD-HAF [place] i1000 SRINIVASA, AUD GARCIA benefits/order, ENT AUD PFP AUD, ENT decreased hearing, bilateral, PFP, New Patient, pre-load, NCPUL 6mo CPAP f/up, NCPUL new CPAP f/up, NCPUL new CPAP f/up, NCPUL HST f/up, Home sleep test( NOX), NCPUL 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
--- OUTSIDE RECORDS SUMMARY | 2022-04-29 13:17 | XMS_ITS | Continuity of Care Document ---
Author Name Unknown Organization [facility] Ambulatory Clinics Address [address] [place] [address] Care Team Providers Care Certified Composites Technician Name Role Phone Es Clinton Primary Care Physician Encounter [facility]BR [id number] Date(s): 02/02/22 - 02/02/22 [facility] Ambulatory Clinics [address] [place], [place] [address] Encounter Diagnosis Osteoarthritis of knees, bilateral(Discharge Diagnosis) - 02/02/22 Discharge Disposition: Home or Self Care Attending Physician: Tamar Biswas [employer] SALES REPRESENTATIVE, Allergies, Adverse Reactions, Alerts No Known Allergies Assessment and Plan Future Appointments Functional Status 02/02/22 Other exposure to Infectious Disease Non e [...] Start Date: 01/20/22 Status: Ordered Potassium Chloride (Anv-Ioup-Pwt M20) 20 mEq oral tablet, extended release [...] Range]: 1 Peripheral Pulse Rate [60-100 bpm] 56 bp m *LOW* (02/02/22 9:40 AM) Blood Pressure [90-140/60-90 mmHg] 112/7 0mmHg (02/02/22 9:40 AM) Weight 152.5 kg (02/02/22 9:40 AM) Weight Measured (lbs) 336.205 lb (02/02/22 9:40 AM) Height 172.72 cm (02/02/22 9:40 AM) Height/Length Measured (inches) 68 inch (02/02/22 9:40 AM) BSA Measured 2.7 m2 (02/02/22 9:40 AM) Body Mass Index 51.12 kg/m2 (02/02/22 9:40 AM) Social History Social History Type Response Tobacco Never tobacco user T obacco Use:. Sex Male Hospital Discharge Instructions Follow Up Care 12/24/2021 12:10:17 With:Return to this practice Address: When: only if needed Physician Outpatient Note * Tamar Biswas APRN,: PERFORM Event Display: Office Clinic Note Physician Authored Date: [id number] CRISTIAN GREY :1955 Age:66 years Sex:Male Visit Date:02/02/2022 Primary Care Physician: Es Clinton Chief Complaint Bilateral ORthovisc #3 History of Present Illness Cristian is a very pleasant 66-year-old man, well-known to Dr. Jay's practice. ??He has bilateralknee OA confirmed radiographically. ??He is not ready for knee replacement. ??He treats intermittently with Orthovisc injections.?? The injections were started two weeks ago. ??He states the knees are feeling better.?? No adverse reaction. ??He is ready for the final injections today.? Review of Systems Improving bilateral knee pain Otherwise negative ROS Physical Exam Vitals & Measurements HR:??56??(Peripheral)?? BP:??112/70?? SpO2:??96%?? HT:??172.72??cm?? WT:??152.5??kg?? BMI:??51.12?? Pain Score:??3?? BSA:??2.7?? The patient is alert and oriented [...] 66-year-old man with bilateral knee OA confirmed radiographically.?? Orthovisc was started??several weeks ago, the knees are feeling much better. ??No adverse reaction. ??He is ready for the final injections today.?? He is reminded that these injections can be repeated every 6 months as needed.?? He will follow-up with me on an as-needed basis and is encouraged to contact the office anytime with questions or concerns. Ordered: Orthovisc, 30 mg, Intra-articular, Once, First Dose: 02/02/22 10:11:00 EST, Stop Date: 02/02/22 10:11:00 EST, Physician Stop, Routine ?? Follow Up Instructions With When Contact Information Return to this practice Only if needed Additional Instructions: Problem List/Past Medical History Ongoing Arthritis of [...] Orthovisc, 30 mg, Intra-articular, Once Potassium Chloride (Gww-Bzhv-Nzi M20) 20 mEq oral tablet, extended release [...] Father. Rheumatoid arthritis: Father. Electronically Signed on 02/02/22 10:11 AM Tamar Biswas APRN, Patient Care team information Personnel Name: Es Clinton Address: Address: [address] [place] [address] [place] [phone]
--- OUTSIDE RECORDS SUMMARY | 2022-04-29 13:17 | XMS_ITS | Continuity of Care Document ---
Author Name Unknown Organization [facility] f or Sleep Disorders Address [address] [place] [address] Care Team Providers Care Pottery Kiln Builder Name Role Phone Guillermina Govea Primary Care Physician Encounter [facility] Date(s): 02/18/22 - 02/18/22 [facility] [address] [place] [address] [place] Encounter Diagnosis Obstructive sleep apnea(Discharge Diagnosis) - 02/18/22 Nocturnal hypoxemia(Discharge Diagnosis) - 02/18/22 Restless legs(Discharge Diagnosis) - 02/18/22 Discharge Disposition: Home or Self Care Attending Physician: Guillermina Govea RETAIL ASSISTANT Allergies, Adverse Reactions, Alerts No Known Allergies Assessment and Plan Future Appointments Future Scheduled Tests Laboratory* Ferritin 10/23/21 * TSH w/ Rflx to Free T4 10/23/21 Functional Status 02/18/22 Other exposure to Infectious Disease Non e [...] Range]: 1 Peripheral Pulse Rate [60-100 bpm] 67 bp m (02/18/22 3:12 PM) Blood Pressure [90-140/60-90 mmHg] 102/5 3mmHg (02/18/22 3:12 PM) Weight 145.15 kg (02/18/22 3:12 PM) Weight Measured (lbs) 320.001 lb (02/18/22 3:12 PM) Height 172 cm (02/18/22 3:12 PM) Height/Length Measured (inches) 67.72 in ch (02/18/22 3:12 PM) BSA Measured 2.63 m2 (02/18/22 3:12 PM) Body Mass Index 49.06 kg/m2 (02/18/22 3:12 PM) Social History Social History Type Response Tobacco Former tobacco user Tobacco Use:. Sex Male Physician Outpatient Note * Guillermina Govea RETAIL ASSISTANT: PERFORM Event Display: Office Clinic Note Physician Authored Date: [id number] CRISTIAN GREY :1955 Age:66 years Sex:Male Visit Date:02/18/2022 Primary Care Physician: Guillermina Govea NP Chief Complaint f/u lab results History of Present Illness 66 year old male here for f/u lab results ?? Past medical history includes??HTN, hx CHF, hx [place] (first [place] 40 yrs), s/p CABG 2020, Afib, hyperlipidemia, depression ?PREVIOUS SLEEP EVALUATION: 10/11/2014.??HST ([facility]). BMI 48.1 AHI 16.5/hr.?? cpap??therapy initiated autocpap [...] on optimal pressures from BIPAP 18/13cm to 22/54dkF6X. ??BIPAP 18/21ooU5P worked well for Left Lateral REM/NREM sleep.?? 4.??Moderate Periodic Limb Movement Disorder without significant arousals. PLM Index 21.7/hr. PLM arousal index 0.5/hr. 5.??Resmed Airfit F20, Full Face Mask in Size Medium, showed acceptable leak profile. Patient came to sleep lab with FlexiFit full face mask which he did not like, and was refitted to the above mask,noted to work very well for patient ?? TODAY: Pt states he has not used his CPAP machine in a few weeks and notices a huge difference in his sleep quality/daytime wakefulness. Pt endorses symptoms of RLS that impact his ability to fall asleep and wake him up at night. Review of Systems A 10-point REVIEW OF SYSTEM was obtained and reviewed, includes CONSTITUTIONAL, EYES, NOSE, THROAT,RESPIRATORY, HEART, GASTROINTESTINAL, UROLOGIC, MUSCULOSKELETAL, PSYCHIATRY, SKIN systems. Pertinent symptoms are discussed in history, otherwise negative. Physical Exam Vitals & Measurements HR:??67??(Peripheral)?? BP:??102/53?? SpO2:??97%?? HT:??172??cm?? WT:??145.15??kg?? BMI:??49.06?? BSA:??2.63?? General well appearing??statedage, no acute distress,??obesebuild HEENT: atraumatic skull, anicteric RESPIRATORY: quiet respiration, able to speak in full sentences without dyspnea, no accessory muscle use, SKIN: no facial skin rash, no facial skin lesions PSYCHIATRIC: well groomed, fluent speech, good insight, linear thought process, good eye contact,balanced NEUROLOGIC: alert, oriented, symmetric facial expression ?? Clinical Data Reviewed: ?? 1.[place] Sleepiness Scale:??8out of 24. ?? 2.Sleep study results as above. ?? 3. October 2021 - ?? 4. Machine Download Data:??N/A ?? Assessment/Plan 1.??Obstructive sleep apnea??G47.33 Cristian Grey is a pleasant 66 year old male here for f/u bipap compliance and lab results review. Pt states he still has not received his BiPAP machine and has not used his CPAP machine in a few weeks. Pt notes a difference in his sleep quality and daytime wakefulness and is looking forward to using his BiPAP machine. Due to this, no download data available. Discussed importance of compliance once he receives his machine. Pt is expected to receive his BiPAP in the next few days and plans to start use immediately. Pt will call if he has any questions or concerns with bipap prior to his next OV in 6 weeks. Auto BiPAP IMAX 25 SUZETTE 13 PS 5 cm H20. 2.??Nocturnal hypoxemia??G47.34 Pt is due to start auto BiPAP. Monitor. 3.??Restless legs??G25.81 Pt endorses symptoms of RLS that impact his ability to fall asleep and stay asleep, however is not overly troubled by his restless legs as his symptoms are very??intermittent. Pt had labs in October that showed a ferritin of 70. Discussed risks and benefits of iron supplementation and decide to hold off for now. Recommend pt start Vitamin D 1000iu QD and Magnesium Gluconate 200-400mg QD for his RLS and to helphim sleep. Monitor. I provided greater than??30??minutes in the care of this patient, more than half the time was spentin slfb-st-cyzy counseling. ?with comorbidities of HTN, hx CHF, hx VT (first [place] 40 yrs), s/p CABG 2020, Afib, hyperlipidemia, depression ? Clinical Data Reviewed: [place] Sleepiness Scale: 10/14 ? Sleep Clinical Timeline:?? 10/11/2014.??HST ([facility]). BMI 48.1 AHI 16.5/hr.?? cpap??therapy initiated autocpap [...] on optimal pressures from BIPAP 18/13cm to 22/64giP4T. ??BIPAP 18/53zpG3L worked well for Left Lateral REM/NREM sleep.?? 4.??Moderate Periodic Limb Movement Disorder without significant arousals. PLM Index 21.7/hr. PLM arousal index 0.5/hr. 5.??Resmed Airfit F20, Full Face Mask in Size Medium, showed acceptable leak profile. Patient came to sleep lab with FlexiFit full face mask which he did not like, and was refitted to the above mask,noted to work very well for patient ?? 10/23/2021: f/u CPAP and BIPAP titration study, new order placed for auto BIPAP 25/13/5 cm H20 to [facility]. ??ResMed AirFit F 20, fullface mask size medium ?? 02/18/2022. f/u lab results. Pending auto BiPAP from [facility]. Recommend Mag Gluconate 200-400mg QD and vit D 1000IU QD for RLS. ? Today's Assessment and Plan: See above. ?? Follow up: 6 weeks sooner if needed. ? Problem List/Past Medical [...] mRNA-1273 vaccine 05/19/2020 Recorded Electronically Signed on 02/18/22 04:07 PM Guillermina Govea NP Electronically Signed on 02/18/22 03:53 PM Amparo Copeland Patient Care team information Personnel Name: Guillermina Govea NP Address: Address: [address] [place] [id number]
--- NOTE | 2022-04-29 14:06 | DI.RAD_ITS ---
Exam(s) XR CHEST 2V PA LATERAL EXAM: XR CHEST 2V PA LATERAL CLINICAL HISTORY: SOB R06.02 R/O PNEUMONIA TECHNIQUE: 2D digital imaging was performed. COMPARISON: CR,XR XR CHEST 2V PA LATERAL from 01/20/2021 FINDINGS: Exam somewhat limited by underpenetration due to body habitus. HEART: Enlarged. Valve prosthesis. Aorta: Not dilated. PULMONARY VASCULATURE: Normal. LUNGS: Clear. PLEURAL SPACE: No pleural effusion or pneumothorax. BONE:Sternal wires. IMPRESSION: No acute abnormality. DATA REPOSITORY: RADIATION DOSE DELIVERED:
== END 2022-04-29 13:34 ==
LOC: DI 13:15
PROVIDERS: PCP Physician Assistant Medical; Visit Provider Nurse Practitioner Family
DX: Z03.89 Encounter for observation for other suspected diseases and conditions ruled out (principal); R06.02 Shortness of breath
CPT/HCPCS: 71046

== ENCOUNTER 2022-06-01 14:13 | Outpatient (REF) | payer MEDICAID, SELFPAY ==
[2022-06-01 15:58] LABS: Calculated LDL 49 mg/dL (<100); Cholesterol 118 mg/dL (<200); HDL Cholesterol 52 mg/dL (40-60); Triglyceride 86 mg/dL (<150)
[2022-06-01 16:42] LABS: Hemoglobin A1C 6.4 % (<5.7)
[2022-06-01 22:28] LABS: PSA, Screening 0.9 ng/mL (<=4.5)
== END 2022-06-01 14:14 | disposition home or self-care (01) ==
LOC: NCHCN 14:13
PROVIDERS: PCP Physician Assistant Medical; Visit Provider Physician Assistant Medical
DX: R73.03 Prediabetes (principal); E78.5 Hyperlipidemia, unspecified; N40.0 Benign prostatic hyperplasia without lower urinary tract symptoms; Z12.5 Encounter for screening for malignant neoplasm of prostate
CPT/HCPCS: 80061; 84153; 83036

== ENCOUNTER 2022-07-13 01:02 | Outpatient (CLI) | payer MEDICAID, SELFPAY ==
--- NOTE | 2022-07-13 07:00 | DI.US_ITS ---
Exam(s) US RENAL EXAM: US RENAL CLINICAL HISTORY: STAGE III CKD, N18.30; RISING CREATININE; POSTVOID RESIDUAL. TECHNIQUE: [place] scale, color and spectral Doppler were used. COMPARISON: US US RENAL from 01/23/2021 FINDINGS: Renal size in cm: Right: 11.5. Left: 12.3. Echogenicity: Normal. Renal cortices appear grossly unremarkable. Hydronephrosis: No. Cyst or mass: No. Nephrolithiasis: No. Other findings: None. Bladder:There is limited evaluation of the urinary bladder as it was incompletely distended. The eleazar dder wall measures 5 mm in thickness. This may be due to the underdistention. Ureteral jets: Right: Not visualized on this examination. Left: Not visualized on this examination. Prevoid vol:70 cc Postvoid vol:0 cc Prostate: Could not be visualized on this examination. Renal color flow: Symmetric and within normal limits. IMPRESSION: 1. Unremarkable kidneys sonographically. 2. Bladder evaluation was severely limited due to inadequate distension. DATA REPOSITORY:
== END 2022-07-13 01:22 ==
LOC: DI 01:04
PROVIDERS: PCP Physician Assistant Medical; Visit Provider Internal Medicine Nephrology
DX: N18.30 Chronic kidney disease, stage 3 unspecified (principal)
CPT/HCPCS: 76770

== ENCOUNTER 2022-10-19 10:04 | Outpatient (REF) | payer MEDICAID, SELFPAY ==
[2022-10-19 16:18] LABS: Hemoglobin A1C 5.8 % (<5.7)
[2022-10-19 16:56] LABS: ALT 26 U/L (16-63); AST 18 U/L (15-37); Albumin 3.5 g/dL (3.4-5.0); Alkaline Phosphatase 108 U/L (46-116); Anion Gap 7.6 mmol/L (3-11); BUN 23 mg/dL (7-18); Bilirubin, Total 0.6 mg/dL (0.2-1.0); CO2 29.4 mmol/L (21.0-32.0); CREATININE 1.4 mg/dL (0.70-1.30); Calcium 8.7 mg/dL (8.5-10.1); Chloride 100 mmol/L (98-107); Estimated GFR 56.13 (mL/min/1.73m2); Glucose 148 mg/dL (74-106); Potassium 3.8 mmol/L (3.5-5.1); Sodium 137 mmol/L (136-145); Total Protein 7.2 g/dL (6.4-8.2); Uric Acid 9.7 mg/dL (3.5-7.2)
== END 2022-10-19 10:05 | disposition home or self-care (01) ==
LOC: NCHCN 10:04
PROVIDERS: PCP Physician Assistant Medical; Visit Provider Physician Assistant Medical
DX: E11.9 Type 2 diabetes mellitus without complications (principal); M10.9 Gout, unspecified; N18.9 Chronic kidney disease, unspecified
CPT/HCPCS: 80053; 83036; 84550

== ENCOUNTER 2023-02-15 11:37 | Outpatient (REF) | payer MEDICARE, MEDICAID, SELFPAY ==
--- OUTSIDE RECORDS SUMMARY | 2023-02-15 11:39 | XMS_ITS | Continuity of Care Document ---
Author Name Unknown Organization [facility] Address [address] [place] [address] Care Team Providers Care Oil Heater Installer Name Role Phone Es Clinton Primary Care Physician Encounter [facility] NBR [id number] Date(s): 12/03/22 - 12/03/22 [facility] [address] [place], [place] [address] Encounter Diagnosis Osteoarthritis of knees, bilateral(Discharge Diagnosis) - 12/03/22 Discharge Disposition: Home or Self Care Attending Physician: Tamar Biswas WINE CELLAR WORKER, Allergies, Adverse Reactions, Alerts No Known Allergies Assessment and Plan Future Appointments Medications amiodarone 100 mg oral tablet 1 [...] Start Date: 01/20/22 Status: Ordered Potassium Chloride (Qaf-Pbdn-Vin M20) 20 mEq oral tablet, extended release [...] Range]: 1 Peripheral Pulse Rate [60-100 bpm] 52 bp m *LOW* (12/03/22 9:55 AM) Blood Pressure [90-140/60-90 mmHg] 134/8 2mmHg (12/03/22 9:55 AM) Social History Social History Type Response Tobacco Never tobacco user T obacco Use:. Sex Male Hospital Discharge Instructions Follow Up Care 11/17/2022 09:21:14 With:Return to this practice Address: When: only if needed Physician Outpatient Note * Tamar Biswas WINE CELLAR WORKER,: PERFORM Event Display: Office Clinic Note Physician Authored Date: [id number] CRISTIAN GREY :1955 Age:67 years Sex:Male Visit Date:12/03/2022 Primary Care Physician: Es Clinton Chief Complaint Bilateral Knee Orthovisc #3 History of Present Illness Cristian is a very pleasant 67-year-old man with bilateral knee OA confirmed radiographically.?? Orthovisc was started??2 weeks ago, the knees are feeling much better. ??No adverse reaction. ??He is ready for the final injections today. Review of Systems Constitutional:?No??fevers,?No??chills,?No??sweats Respiratory:?No??shortness of breath,?No??cough Cardiovascular:?No??Chest pain,?No??palpitations,?No??syncope Gastrointestinal:?Nonausea,?No??vomiting,?No??diarrhea Musculoskeletal:??No??back pain,??No??neck pain,??No??joint pain,??No??muscle pain,??No??decreased range of motion Integumentary:?No??rash,?No??pruritus,?No??abrasions Neurologic: Alert & oriented X 4 Psychiatric:?No??anxiety,?No??depression Physical Exam Vitals & Measurements HR:??52??(Peripheral)?? BP:??134/82?? SpO2:??95%?? Pain Score:??1?? The patient is alert and oriented x3. ??Pleasant and cooperative. ??Well-dressed and well-groomed.?? Appears stated age.?? Build is obese. ??Examination of the bilateral knees is without deformity. ??No signs or symptoms of infection. ??Gentle range of motion is intact, pain-free. Procedure Risks, benefits and alternatives to??these injections are discussed with the patient, verbal consent is obtained. ??Under standard, sterile technique, the anterolateral injection sites of the bilateral knees are meticulously prepped with ChloraPrep x3.?? Then??Orthovisc 30 mg??is injected at each knee without difficulty. ??The patient tolerated both injections very well and dry, sterile bandages are applied.?? Postinjection instructions are provided. Assessment/Plan 1.??Osteoarthritis of knees, bilateral??M17.0 Cristian is a pleasant 67-year-old man??with??bilateral knee OA confirmed radiographically. ??Orthoviscwas started 2 weeks ago, the knees are feeling much better. ??No adverse reaction. ??He is ready for the final injections today which I am happy to do for him.?? He is reminded that these injections can be repeated every 6 months as needed.?He may continue with supportive care. ??He is in agreement with the above plan and is encouraged to contact the office anytime with questions or concerns. Ordered: Orthovisc, 30 mg, Intra-articular, Once, First Dose: 12/03/22 10:19:00 EDT, Stop Date: 12/03/22 10:19:00 EDT, Physician Stop, Routine Orthovisc, 30 mg, Intra-articular, Once, First Dose: 12/03/22 10:20:00 EDT, Stop Date: 12/03/22 10:20:00 EDT, Physician Stop, Routine ?? Follow Up Instructions [...] Intra-articular, Once Orthovisc, 30 mg, Intra-articular, Once Orthovisc, 30 mg, Intra-articular, Once Potassium Chloride (Rct-Ejvj-Njg M20) 20 mEq oral tablet, extended release ProAir HFA 90 mcg/inh inhalation aerosol rosuvastatin 20 mg oral tablet spironolactone 25 mg oral tablet torsemide 20 mg oral tablet, 20 mg= 1 tab, Oral, Daily valsartan 40 mg oral tablet Wellbutrin SR 150 mg/12 hours oral tablet, extended release Allergies No Known Allergies Social History Alcohol Past Electronic Cigarette/Vaping Electronic Cigarette Use: Never. 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 Tobacco Never tobacco user Tobacco Use:. Family History Heart attack: Father. Rheumatoid arthritis: Father. Electronically Signed on 12/03/22 10:20 AM Tamar Biswas WINE CELLAR WORKER, Patient Care team information Personnel Name: Es Clinton Address: Address: [address] [place] [address] [address] [place] [address]- [place]
--- OUTSIDE RECORDS SUMMARY | 2023-02-15 11:39 | XMS_ITS | Continuity of Care Document ---
Author Name Unknown Organization [facility] Ambulatory Clinics Address [address] [place] [address] Care Team Providers Care Trim Machine Adjuster Name Role Phone Es Clinton Primary Care Physician Encounter [facility] NBR [id number] Date(s): 11/16/22 - 11/16/22 [facility] Ambulatory Clinics [address] [place], [place] [address] Encounter Diagnosis Osteoarthritis of knees, bilateral(Discharge Diagnosis) - 11/12/22 Discharge Disposition: Home or Self Care Attending Physician: Tamar Biswas SUPERVISOR ALUM PLANT, Allergies, Adverse Reactions, Alerts No Known Allergies [...] Start Date: 01/20/22 Status: Ordered Potassium Chloride (Kxt-Uiyy-Ouh M20) 20 mEq oral tablet, extended release [...] Range]: 1 Peripheral Pulse Rate [60-100 bpm] 93 bp m (11/16/22 8:25 AM) Blood Pressure [90-140/60-90 mmHg] 132/7 6mmHg (11/16/22 8:25 AM) Social History Social History Type Response Tobacco Never tobacco user T obacco Use:. Sex Male Hospital Discharge Instructions Follow Up Care 10/21/2022 12:43:52 With:Tamar Biswas APRN, Address: [address] [place] [address]- When:Within 1 Week(s) Comments:OV #2 BILAT KNEES Physician Outpatient Note * Tamar Biswas APRN,: PERFORM Event Display: Office Clinic Note Physician Authored Date: [id number] CRISTIAN GREY :1955 Age:66 years Sex:Male Visit Date:11/16/2022 Primary Care Physician: Es Clinton Chief Complaint Bilateral Orthovisc injections History of Present Illness Cristian is a very pleasant 66-year-old man, well-known to Dr. Jay's practice. ??He has bilateralknee OA confirmed radiographically.?? He is not ready for knee replacement. ??He treats intermittently with Orthovisc injections. ??His last injections were 9 months ago.?? These worked well for him.??His pain has returned and he is requesting repeat injections today. ??No history of adverse reaction. Review of Systems Constitutional:?No??fevers,?No??chills,?No??sweats Respiratory:?No??shortness of breath,?No??cough Cardiovascular:?No??Chest pain,?No??palpitations,?No??syncope Gastrointestinal:?Nonausea,?No??vomiting,?No??diarrhea Musculoskeletal:??No??back pain,??No??neck pain,??Positive for??bilat knee pain,??No??muscle pain,??No??decreased range of motion Integumentary:?No??rash,?No??pruritus,?No??abrasions Neurologic: Alert & oriented X 4 Psychiatric:?No??anxiety,?No??depression Physical Exam Vitals & Measurements HR:??93??(Peripheral)?? BP:??132/76?? SpO2:??96%?? Pain Score:??4?? The patient is alert and oriented x3. ??Very pleasant. ??No acute distress.?? He appears stated age. ??Build is morbidly obese. ??He is a bit disheveled today and eyes are quite bloodshot.?? He is pleasant and cooperative.?? Examination of the bilateral knees reveals no deformity. ??Skin is intact.??There is no erythema or warmth. ??No signs or symptoms of infection. ??Gentle range of motion is intact, pain-free. ??Calf compartments are soft and nontender. Procedure Risks, benefits and alternatives to these injections are discussed with the patient, verbal consentis obtained. ??Under standard, sterile technique, the anterolateral injection sites of the bilateral knees are meticulously prepped with alcohol x3. ??Then??Orthovisc 30 mg combined with Kenalog 40 mg is injected at each knee without difficulty. ??The patient tolerated both injections very well anddry, sterile bandages are applied. ??Postinjection??instructions are provided. Assessment/Plan 1.??Osteoarthritis of knees, bilateral??M17.0 Cristian is a pleasant 66-year-old man with bilateral knee OA confirmed radiographically. ??He is not interested in knee replacement. ??He treats intermittently with??Orthovisc injections. ??His last injections were about??9 months ago.?He is requesting repeat injections today. ??I am happy to do this for him. ??I will see him back next week for the second injections.?? He is encouraged to contactme with questions or concerns anytime. ??I spent 20 minutes in reviewing the record, seeing the patient and documenting in the medical record. Ordered: Orthovisc, 30 mg, Intra-articular, Once, First Dose: 11/16/22 8:55:00 EDT, Stop Date: 11/16/22 8:55:00 EDT, Physician Stop, Routine Orthovisc, 30 mg, Intra-articular, Once, First Dose: 11/16/22 8:55:00 EDT, Stop Date: 11/16/22 8:55:00 EDT, Physician Stop, Routine Kenalog-40, 40 mg, Intra-articular, Once, First Dose: 11/16/22 8:55:00 EDT, Stop Date: 11/16/22 8:55:00 EDT, Physician Stop, Routine Kenalog-40, 40 mg, Intra-articular, Once, First Dose: 11/16/22 8:55:00 EDT, Stop Date: 11/16/22 8:55:00 EDT, Physician Stop, Routine ?? Follow Up Instructions With When Contact Information Tamar Biswas APRN, In 1 week [address] [place] [address]- Additional Instructions: OV #2 BILAT KNEES Problem List/Past Medical History Ongoing [...] oral tablet Kenalog-40, 40 mg, Intra-articular, Once Kenalog-40, 40 mg, Intra-articular, Once Kenalog-40, 40 mg, Intra-articular, Once metoprolol tartrate 50 mg oral tablet omeprazole 20 mg oral delayed release capsule Orthovisc, 30 mg, Intra-articular, Once Orthovisc, 30 mg, Intra-articular, Once Orthovisc, 30 mg, Intra-articular, Once Potassium Chloride (Rhw-Ghud-Hea M20) 20 mEq oral tablet, extended release [...] Father. Rheumatoid arthritis: Father. Electronically Signed on 11/16/22 08:55 AM Tamar Biswas APRN, Patient Care team information Personnel Name: Es Clinton Address: Address: [address] [place] [address] [employer] [address] [place], [place] [id number] [place] [address]
--- OUTSIDE RECORDS SUMMARY | 2023-02-15 11:39 | XMS_ITS | Continuity of Care Document ---
Author Name Unknown Organization [facility] Address [address] [place] [address] Care Team Providers Care Practicing Urologist Name Role Phone Mason Singer Primary Care Physician Encounter [facility] NBR [id number] Date(s): 11/23/22 - 11/23/22 [facility] [address] [place], [place] [address] Encounter Diagnosis Osteoarthritis of knees, bilateral(Discharge Diagnosis) - 11/23/22 Discharge Disposition: Home or Self Care Attending Physician: Tamar Biswas APRN, Referring Physician: MASON SINGER PA-C Allergies, Adverse Reactions, Alerts No Known Allergies [...] Start Date: 01/20/22 Status: Ordered Potassium Chloride (Qlh-Ryke-Zup M20) 20 mEq oral tablet, extended release [...] Range]: 1 Peripheral Pulse Rate [60-100 bpm] 57 bp m *LOW* (11/23/22 8:47 AM) Blood Pressure [90-140/60-90 mmHg] 140/7 8mmHg (11/23/22 8:47 AM) Social History Social History Type Response Tobacco Never tobacco user T obacco Use:. Sex Male Hospital Discharge Instructions Follow Up Care 10/21/2022 12:45:14 With:Tamar Biswas APRN, Address: [address] [place] [address]- When:Within 1 Week(s) Comments:OV #3 BILAT KNEES Physician Outpatient Note * Tamar Biswas APRN,: PERFORM Event Display: Office Clinic Note Physician Authored Date: [id number] CRISTIAN GREY :1955 Age:67 years Sex:Male Visit Date:11/23/2022 Primary Care Physician: Mason Singer Chief Complaint Bilateral Orthovisc injections History of Present Illness Cristian is a very pleasant 67-year-old man with bilateral knee OA confirmed radiographically.?? Orthovisc was started last week. ??His knees are feeling much better.?? No adverse reaction. ??He is readyfor the second injections. Review of Systems Constitutional:?No??fevers,?No??chills,?No??sweats Respiratory:?No??shortness of breath,?No??cough Cardiovascular:?No??Chest pain,?No??palpitations,?No??syncope Gastrointestinal:?Nonausea,?No??vomiting,?No??diarrhea Musculoskeletal:??No??back pain,??No??neck pain,??No??joint pain,??No??muscle pain,??No??decreased range of motion Integumentary:?No??rash,?No??pruritus,?No??abrasions Neurologic: Alert & oriented X 4 Psychiatric:?No??anxiety,?No??depression Physical Exam Vitals & Measurements HR:??57??(Peripheral)?? BP:??140/78?? SpO2:??96%?? Pain Score:??1?? The patient is alert and oriented x3. ??Pleasant and cooperative. ??Well-dressed and well-groomed.?? Appears stated age and is well-nourished and well- developed.?? Examination of the bilateral knees is without deformity. [...] man??with??bilateral knee OA confirmed radiographically. ??Orthoviscwas started last week, the knees are feeling much better. ??No adverse reaction. ??He is ready for the second injections today which I am happy to do for him.?? I will see him back next week for the final injections. ??In the meantime he may continue with supportive care. ??He is in agreement with the above plan and is encouraged to contact the office anytime with questions or concerns. Ordered: Orthovisc, 30 mg, Intra-articular, Once, First Dose: 11/23/22 9:07:00 EDT, Stop Date: 11/23/22 9:07:00 EDT, Physician Stop, Routine Orthovisc, 30 mg, Intra-articular, Once, First Dose: 11/23/22 9:07:00 EDT, Stop Date: 11/23/22 9:07:00 EDT, Physician Stop, Routine ?? Follow Up Instructions With When Contact Information Tamar Biswas APRN, In 1 week [address] [place] [address]- Additional Instructions: OV #3 BILAT [...] Orthovisc, 30 mg, Intra-articular, Once Potassium Chloride (Lha-Jzvv-Tai M20) 20 mEq oral tablet, extended release [...] Father. Rheumatoid arthritis: Father. Electronically Signed on 11/23/22 09:08 AM Tamar Biswas APRN, Patient Care team information Personnel Name: Mason Singer Address: Address: [address] [place] [id number] [place] [address]
--- OUTSIDE RECORDS SUMMARY | 2023-02-15 11:39 | XMS_ITS | Continuity of Care Document ---
Author Name Unknown Organization [facility] Address [address] [place] [address] Care Team Providers Care Line O Scribe Operator Name Role Phone Outside, Provider Primary Care Physician Encounter [facility] Date(s): 10/13/22 - 10/13/22 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 Allergies, Adverse Reactions, Alerts No Known Allergies Assessment and Plan Future Appointments Future Scheduled Tests Laboratory* Ferritin 10/23/21 * TSH w/ Rflx to Free T4 10/23/21 Functional Status 10/13/22 Other exposure to Infectious Disease Non e [...] Pulmonary nodule Confirmed Active Obesity Confirmed Active Obstructive sleep apnea Confirmed Active Knee pain, bilateral Confirmed Active Paroxysmal atrial fibrillation Confirmed Active Prediabetes Confirmed Active History of tobacco use Confirmed Active Vital Signs Most recent to oldest [Reference Range]: 1 Peripheral Pulse Rate [60-100 bpm] 58 bp m *LOW* (10/13/22 7:44 AM) Blood Pressure [90-140/60-90 mmHg] 98/49 mmHg (10/13/22 7:44 AM) Weight 141.97 kg (10/13/22 7:44 AM) Weight Measured (lbs) 312.99 lb (10/13/22 7:44 AM) Height 172 cm (10/13/22 7:44 AM) Height/Length Measured (inches) 67.72 in ch (10/13/22 7:44 AM) BSA Measured 2.6 m2 (10/13/22 7:44 AM) Body Mass Index 47.99 kg/m2 (10/13/22 7:44 AM) Social History Social History Type Response Tobacco Former tobacco user Tobacco Use:. Sex Male Progress note * [place] M: PERFORM Event Display: Progress Note - Physician Authored Date: [id number] Physician Outpatient Note * Guillermina Govea TRANSFER CAR OPERATOR: PERFORM Event Display: Office Clinic Note Physician Authored Date: [id number] CRISTIAN GREY :1955 Age:66 years Sex:Male Visit Date:10/13/2022 Primary Care Physician: Outside, Provider Chief Complaint bipap compliance follow up History of Present Illness 66 years??male??here for compliance ?? TODAY: Patient states his BiPAP machine has been working really well for him. He no longer leaves his machine running when he gets up at night to use the restroom. ?? He still struggles a bit with his headgear comfort, has a spot on his scalp that is sensitive topressure. He has put a piece of cardboard between it and his headgear. Review of Systems A 10-point REVIEW OF SYSTEM was obtained and reviewed, includes CONSTITUTIONAL, EYES, NOSE, THROAT,RESPIRATORY, HEART, GASTROINTESTINAL, UROLOGIC, MUSCULOSKELETAL, PSYCHIATRY, SKIN systems. Pertinent symptoms are discussed in history, otherwise negative. Physical Exam Vitals & Measurements HR:??58??(Peripheral)?? BP:??98/49?? SpO2:??93%?? HT:??172??cm?? WT:??141.97??kg?? BMI:??47.99?? BSA:??2.6?? General:??well appearing, appearing stated age, no acute distress,??obese??build HEENT: atraumatic skull, anicteric RESPIRATORY: quiet respiration, able to speak in full sentences without dyspnea, no accessory muscle use SKIN: no facial skin rash, no facial skin lesions PSYCHIATRIC: well groomed, fluent speech, good insight, linear thought process, good eye contact,balanced??affect NEUROLOGIC: alert, oriented, symmetric facial expression Clinic Assessment/Plan 1.??Obstructive sleep apnea??G47.33 Cristian Grey is a pleasant 66 year old male here for BiPAP compliance. Download data reviewed and discussed with the patient. He has excellent compliance and reduction in AHI, tx AHI 0.2/hr on auto BiPAP IMAX 25 SUZETTE 13 Ps5cm H20. Pt finds pressures comfortable, so no changes today. ?? Patient is using and benefitting from BiPAP. Finds it effective and he sleeps much better with his BiPAP, doesn't like to go without it even for one night. ?? Still struggling a bit with headgear comfort. He is using a piece of cardboard to reduce pressure against his scalp. Recommend he try using a piece of fleece instead because the cardboard doesn't seem comfortable or consider changing his mask and headgear type. Overall, he still finds it okay to wear like this. 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 ?? As he is an experienced PAP user and doing so well on his tx, will plan for 1 year routine follow up. ?? I provided greater than??30??minutes in the care of this patient, more than half the time was spentin [id number] counseling. ?with comorbidities of HTN, hx CHF, hx SD (first SD 40 yrs), s/p CABG 2020, Afib, hyperlipidemia, depression ? Clinical Data Reviewed: [place] Sleepiness Scale: 04/16 ?? Machine Download Data:??Resmed AirSense 10 Auto BIPAP?? PAP Settings: ??Auto BIPAP??IMAX 25 SUZETTE 13 PS 5?? CmH2O Date Range: ?09/06/22 - 10/05/22 Days with Usage >=4 hours:??80%? Avg Usage per Day Used: ??9hr 22min Mean/Median Pressure: ?18.0/13.0 90th-tile/95th-tile Pressure: ?18.3/13.3 Leak:?0.0/5.7 Avg Treatment ??AHI: ??0.2/hr ?? Sleep Clinical Timeline:?? 10/11/2014.??HST ([facility]). BMI 48.1 AHI 16.5/hr.?? cpap??therapy initiated [...] on optimal pressures from BIPAP 18/13cm to 22/[id number]. ??BIPAP 18/10tyV8T worked well for Left Lateral REM/NREM sleep.?? [...] for auto BIPAP 25/13/5 cm H20 to [facility]. ??ResMed AirFit F 20, fullface mask size medium ?? 02/18/2022. f/u lab results. Pending auto BiPAP from [facility]. Recommend Mag Gluconate 200-400mg QD and vit D 1000IU QD for RLS. ? 04/15/2022: Cont auto BiPAP IMAX 25 SUZETTE 13 PS 5cm H20. Receiving supplies from [facility], needs replacement headgear in??larger size. RLS sx well controlled with Mg, Vit D, and Vit C. ? 10/13/2022: Pt is using and benefitting from BiPAP, doing very well, headgear fit has improved and mask leak resolved. ?? Current Mask: Airfit Medium [facility] DME: [facility] ? Today's Assessment and Plan: See above ?? Follow up: 1 year or sooner if needed. ?? Remote Scribed by Amparo Copeland Problem List/Past Medical History Ongoing Aortic valve prosthesis present Arthritis of right knee BPH (benign prostatic hyperplasia) Congestive heart failure Cough COVID-19 virus infection Decreased hearing of both ears Depression Diverticulitis Diverticulitis of colon History of tobacco use Hx of adenomatous colonic polyps Hyperlipidemia Hypertension Knee pain, bilateral Mild CAD Mitral regurgitation Morbid obesity Near syncope Nocturia Obesity Obstructive sleep apnea Paroxysmal atrial fibrillation Prediabetes Pulmonary nodule Shortness of breath Skin cancer Historical MICHELLE on CPAP Medications What How Much When Instructions Unchanged albuterol Unchanged amiodarone (Pacerone 100 mg oral tablet) Unchanged apixaban (Eliquis 5 mg oral tablet) 1 tab Oral (given by mouth) 2 times a day Unchanged aspirin (aspirin 81 mg oral capsule) 1 Capsules Oral (given by mouth) Every day do not exceed 48 capsules in 24 hours ?? Unchanged buPROPion 150 mg daily do not crush or chew ?? Unchanged dibucaine topical (dibucaine 1% topical ointment) 1 Application Topical (on the skin) 4 times a day as needed for as needed for itching Unchanged docusate (Colace 100 mg oral capsule) 1 Capsules Oral (given by mouth) 2 times a day as needed for as needed for constipation Unchanged Durable Medical Equipment for Prescription (Oxygen Therapy) See instructions Unchanged empagliflozin (Jardiance 10 mg oral tablet) 1 tab Oral (given by mouth) Every morning Unchanged metOLazone (metOLazone 2.5 mg oral tablet) Unchanged metoprolol (metoprolol tartrate 50 mg oral tablet) 1 tab Oral (given by mouth) 2 times a day Unchanged nitroglycerin (Nitrostat 0.4 mg sublingual tablet) 1 tab Sublingual (dissolve under the tongue) Every 5 minutes as needed for as needed for chest pain Unchanged omeprazole (omeprazole 20 mg oral delayed release capsule) 1 Capsules Oral (given by mouth) Every day Unchanged polyethylene glycol 3350 (MiraLax oral powder for reconstitution) 17 Gram Oral (given by mouth) Every day Unchanged potassium chloride (K-Tab 20 mEq oral tablet, extended release) Unchanged rosuvastatin (rosuvastatin 20 mg oral capsule) 1 Capsules Oral (given by mouth) Every day Unchanged spironolactone (spironolactone 25 mg oral tablet) 1 tab Oral (given by mouth) 2 times a day Unchanged tamsulosin (tamsulosin 0.4 mg oral capsule) 1 Capsules Oral (given by mouth) Every day Unchanged torsemide (torsemide 20 mg oral tablet) 1 tab Oral (given by mouth) Every day Unchanged valsartan (valsartan 40 mg oral tablet) Allergies No Known Allergies Social History Alcohol [...] mRNA-1273 vaccine 05/19/2020 Recorded Electronically Signed on 10/13/22 08:54 AM Guillermina Govea TRANSFER CAR OPERATOR Electronically Signed on 10/13/22 08:17 AM Amparo Copeland Patient Care team information Care Team Personnel Name: Outside, Provider Position: No Access Member Role: Primary Care Physician Care Team Related Persons Name: MAHOGANY GREY
[2023-02-15 16:11] LABS: Anion Gap 7.8 mmol/L (3-11); BUN 20 mg/dL (7-18); CO2 28.2 mmol/L (21.0-32.0); CREATININE 1.3 mg/dL (0.70-1.30); Calcium 8.9 mg/dL (8.5-10.1); Chloride 102 mmol/L (98-107); Estimated GFR 60.96 (mL/min/1.73m2); Glucose 123 mg/dL (74-106); Sodium 138 mmol/L (136-145)
== END 2023-02-15 11:38 | disposition home or self-care (01) ==
LOC: NCHCN 11:37
PROVIDERS: PCP Physician Assistant Medical; Visit Provider Physician Assistant Medical
DX: E11.9 Type 2 diabetes mellitus without complications (principal); I50.9 Heart failure, unspecified
CPT/HCPCS: 80048; 83036

== ENCOUNTER 2023-05-23 05:30 | Outpatient (CLI) | payer MEDICARE, SELFPAY ==
[2023-05-23 12:01] LABS: Abs Immature Grans 0.11 10^3/uL (0.0-0.06); Absolute Eosinophil Count 0.12 10^3/uL (0.0-0.7); Absolute Lymphocyte Count 1.43 10^3/uL (1.2-3.4); Absolute Monocyte Count 1.09 10^3/uL (0.1-0.8); Absolute Neutrophil Count 5.04 10^3/uL (1.2-6.7); Basophils % 1.3; Eosinophils % 1.5; HCT 53.6 % (40.0-50.0); HGB 17.2 g/dL (13.5-17.5); Immature Grans % 1.4; Lymphocytes % 18.1; MCH 28.5 pg (27.0-33.0); MCHC 32.1 % (32.0-36.0); MCV 89 fL (80-95); MPV 11.3 fL (8.0-11.0); Monocytes % 13.8; Neutrophils % 63.9; Platelet Count 164 10^3/uL (130-400); RBC 6.03 10^6/uL (4.36-5.78); RDW 14.6 % (11.8-14.1); RDW-SD 47.6 fL; WBC 7.89 10^3/uL (4.4-10.8)
[2023-05-23 12:03] LABS: Bilirubin Negative (Negative); Blood Trace-intact (Negative); Clarity Clear (Clear); Glucose >=1000 mg/dL (Negative); Ketones Negative (Negative); Leukocyte Esterase Negative (Negative); Nitrite Negative (Negative); Urobilinogen 0.2 mg/dL (Up to 0.2); pH 5.5 (5-8)
[2023-05-23 12:11] LABS: Bacteria Negative HPF (Negative); C & S Indicated? No; Casts Negative LPF (Negative); Crystals Negative HPF (Negative); Epithelial Cells Rare HPF (Negative); Mucus Negative (Negative); RBC 0-2 HPF (0-2); WBC Negative HPF (0-5)
[2023-05-23 12:21] LABS: Diff Comment Diff Reviewed; RBC Morphology Normal
[2023-05-23 12:40] LABS: Calculated LDL 68 mg/dL (<100); Cholesterol 146 mg/dL (<200); HDL Cholesterol 62 mg/dL (40-60); Triglyceride 84 mg/dL (<150)
[2023-05-23 12:41] LABS: ALT 21 U/L (16-63); AST 20 U/L (15-37); Albumin 3.8 g/dL (3.4-5.0); Alkaline Phosphatase 146 U/L (46-116); Anion Gap 8.9 mmol/L (3-11); BUN 23 mg/dL (7-18); Bilirubin, Total 0.9 mg/dL (0.2-1.0); CO2 30.1 mmol/L (21.0-32.0); CREATININE 1.4 mg/dL (0.70-1.30); Calcium 8.8 mg/dL (8.5-10.1); Chloride 102 mmol/L (98-107); Estimated GFR 55.78 (mL/min/1.73m2); Glucose 115 mg/dL (74-106); Magnesium 2.2 mg/dL (1.8-2.4); PHOSPHORUS 2.9 mg/dL (2.6-4.7); Sodium 141 mmol/L (136-145); Total Protein 7.9 g/dL (6.4-8.2)
[2023-05-23 12:43] LABS: COMMENT (LAB VIEW ONLY) 36.35 mg/dL; Microalb ug/mg Crea 12.4 ug/mg Cr
[2023-05-23 13:01] LABS: Vitamin D 25 Total 41.1 ng/mL (30-100)
[2023-05-23 22:03] LABS: Parathyroid Hormone,Intact 136 pg/mL (19-88)
== END 2023-05-23 05:31 | disposition home or self-care (01) ==
LOC: LBO 05:32
PROVIDERS: Internal Medicine Nephrology; PCP Physician Assistant Medical; Visit Provider Physician Assistant Medical
DX: E78.5 Hyperlipidemia, unspecified (principal); N18.30 Chronic kidney disease, stage 3 unspecified
CPT/HCPCS: 36415; 80053; 80061; 82306; 81003; 81015; 82043; 82570; 83735; 83970; 84100; 85025

== ENCOUNTER 2024-01-23 15:36 | Outpatient (REF) | payer MEDICARE, SELFPAY ==
[2024-01-23 15:19] LABS: Hemoglobin A1C 6.1 % (<5.7)
[2024-01-23 15:55] LABS: Anion Gap 8.5 mmol/L (3-11); BUN 21 mg/dL (7-18); CO2 28.5 mmol/L (21.0-32.0); CREATININE 1.3 mg/dL (0.70-1.30); Calcium 8.8 mg/dL (8.5-10.1); Chloride 104 mmol/L (98-107); Estimated GFR 60.59 (mL/min/1.73m2); Glucose 118 mg/dL (74-106); Potassium 3.9 mmol/L (3.5-5.1); Sodium 141 mmol/L (136-145)
[2024-01-23 22:37] LABS: PSA, Screening 1.8 ng/mL (<=4.5)
== END 2024-01-23 15:37 | disposition home or self-care (01) ==
LOC: NCHCN 15:36
PROVIDERS: PCP Physician Assistant Medical; Visit Provider Physician Assistant Medical
DX: E11.9 Type 2 diabetes mellitus without complications (principal); N18.9 Chronic kidney disease, unspecified
CPT/HCPCS: 80048; 84153; 83036

== ENCOUNTER 2024-04-30 10:18 | Outpatient (REF) | payer MEDICARE, MEDICAID, SELFPAY ==
[2024-04-30 16:09] LABS: Hemoglobin A1C 6.4 % (<5.7)
[2024-04-30 16:45] LABS: ALT 23 U/L (16-63); AST 20 U/L (15-37); Albumin 3.5 g/dL (3.4-5.0); Alkaline Phosphatase 137 U/L (46-116); Anion Gap 8.3 mmol/L (3-11); BUN 19 mg/dL (7-18); Bilirubin, Total 0.6 mg/dL (0.2-1.0); CO2 27.7 mmol/L (21.0-32.0); CREATININE 1.3 mg/dL (0.70-1.30); Calcium 8.9 mg/dL (8.5-10.1); Calculated LDL 79 mg/dL (<100); Chloride 105 mmol/L (98-107); Cholesterol 169 mg/dL (<200); Estimated GFR 60.59 (mL/min/1.73m2); Glucose 137 mg/dL (74-106); HDL Cholesterol 62 mg/dL (>or=40); Potassium 4.6 mmol/L (3.5-5.1); Sodium 141 mmol/L (136-145); Total Protein 7.6 g/dL (6.4-8.2); Triglyceride 144 mg/dL (<150)
[2024-04-30 16:57] LABS: Uric Acid 7.6 mg/dL (3.5-7.2)
== END 2024-04-30 10:19 | disposition home or self-care (01) ==
LOC: NCHCN 10:18
PROVIDERS: PCP Physician Assistant Medical; Visit Provider Physician Assistant Medical
DX: N18.9 Chronic kidney disease, unspecified (principal); E11.9 Type 2 diabetes mellitus without complications
CPT/HCPCS: 80053; 80061; 83036; 84550

== ENCOUNTER 2024-10-31 14:35 | Outpatient (REF) | payer MEDICARE, SELFPAY ==
[2024-10-31 16:14] LABS: Anion Gap 3.9 mmol/L (3-11); BUN 16 mg/dL (7-18); CO2 34.1 mmol/L (21.0-32.0); Calcium 9.0 mg/dL (8.5-10.1); Chloride 103 mmol/L (98-107); Estimated GFR 55.43 (mL/min/1.73m2); Glucose 117 mg/dL (74-106); Potassium 4.2 mmol/L (3.5-5.1); Sodium 141 mmol/L (136-145); Uric Acid 8.2 mg/dL (3.5-7.2)
[2024-10-31 17:07] LABS: Hemoglobin A1C 6.0 % (<5.7)
== END 2024-10-31 14:36 | disposition home or self-care (01) ==
LOC: NCHCN 14:35
PROVIDERS: PCP Physician Assistant Medical; Visit Provider Physician Assistant Medical
DX: E11.22 Type 2 diabetes mellitus with diabetic chronic kidney disease (principal)
CPT/HCPCS: 80048; 83036; 84550

== ENCOUNTER 2025-02-11 10:25 | Outpatient (REF) | payer MEDICARE, SELFPAY ==
[2025-02-11 16:04] LABS: HCT 49.8 % (40.0-50.0); HGB 16.2 g/dL (13.5-17.5); MCH 29.8 pg (27.0-33.0); MCHC 32.5 % (32.0-36.0); MCV 92 fL (80-95); MPV 11.6 fL (8.0-11.0); Platelet Count 219 10^3/uL (130-400); RBC 5.44 10^6/uL (4.36-5.78); RDW 13.4 % (11.8-14.1); RDW-SD 45.4 fL; WBC 8.46 10^3/uL (4.4-10.8)
[2025-02-11 16:34] LABS: Vitamin D 25 Total 29 ng/mL (30-100)
[2025-02-11 16:43] LABS: ALT 23 U/L (10-49); AST 18 U/L (<34); Albumin 4.2 g/dL (3.2-5.0); Alkaline Phosphatase 124 U/L (46-116); Anion Gap 9 mmol/L (3-11); BUN 21 mg/dL (9-23); Bilirubin, Total 0.6 mg/dL (0.2-1.2); CO2 32.0 mmol/L (20.0-31.0); Calcium 9.0 mg/dL (8.3-10.6); Chloride 103 mmol/L (98-107); Cholesterol 156 mg/dL (<200); Glucose 96 mg/dL (74-106); HDL Cholesterol 52 mg/dL (>or=40); Potassium 4.3 mmol/L (3.5-5.1); Sodium 144 mmol/L (136-145); Total Protein 7.0 g/dL (5.7-8.2)
[2025-02-11 17:01] LABS: Uric Acid 7.1 mg/dL (3.7-9.2)
[2025-02-11 18:25] LABS: Hemoglobin A1C 5.9 % (<5.7)
[2025-02-12 19:14] LABS: PSA, Screening 1.6 ng/mL (<=4.5)
== END 2025-02-11 10:26 | disposition home or self-care (01) ==
LOC: NCHCN 10:25
PROVIDERS: PCP Physician Assistant Medical; Visit Provider Physician Assistant Medical
DX: E78.5 Hyperlipidemia, unspecified (principal); E79.0 Hyperuricemia without signs of inflammatory arthritis and tophaceous disease; E11.22 Type 2 diabetes mellitus with diabetic chronic kidney disease; N18.30 Chronic kidney disease, stage 3 unspecified; N18.9 Chronic kidney disease, unspecified; Z12.5 Encounter for screening for malignant neoplasm of prostate
CPT/HCPCS: 80053; 80061; 82306; 84153; 85027; 82043; 82570; 83036; 84550